=== PATIENT | male | born 1975 | race Caucasian/White ===

== ENCOUNTER 2018-02-23 11:44 | Emergency (ER) | payer MEDICAID, SELFPAY ==
[2018-02-23 11:54] VITALS: BP 128/90; PULSE 75; TEMP 36.4; O2SAT 97
--- NOTE | 2018-02-23 13:00 | W.ED.GENAD ---
Discharge Plan Disposition Patient Disposition: HOME Condition: Stable Discharge Details Chief Complaint: Orthopedic Clinical Impression: Injury of shoulder, left Primary Care Provider: Sharmin Tyler ED Provider: Pearl Rolon Home Meds and New Rx's Prescriptions: New acetaminophen-codeine [Tylenol-Codeine #3] 300-30 mg tablet 1 tab PO Q6H PRN (Reason: pain) Qty: 6 RF: 0 Discontinued arm brace [Wrist Brace Medium] 1 EACH misc 1 ea Miscellaneous HS Qty: 2 RF: 0 hydrocodone-acetaminophen [[place]] 1 EACH tablet 1 - 2 tab PO Q4H PRN PRNRF: 0 hydrocodone-acetaminophen [[place]] 1 EACH tablet 1 - 2 tab PO Q4H PRN PRNRF: 0 Discharge Instructions Instructions: Acetaminophen/Codeine (By mouth), Rotator Cuff Injury (ED), How to Use a Sling (GEN), Shoulder Pain (ED) Additional Instructions: Please return immediately to the emergency department he develop any new or worsening symptoms or if you become otherwise concerned. It is extremely important that you make an appointment to be seen by physical therapy and by your primary care doctor within the next 1-2 weeks. You may need to see orthopedic surgery if you continue to have ongoing issues with her shoulder beyond the next 1-2 weeks. Please do not use the sling for more than 6 hours/day to decrease risk of stiffness in the shoulder. Referrals: Shamrin Tyler MD [Primary Care Provider] - Master Aguilar MD [ [facility] STAFF PHYSICIAN] - Luan Arenas PT [PHYSICAL THERAPIST] - Discharge Data Discharge Date/Time-TO BE ENTERED AT DEPARTURE: 02/23/18 15:40 Medical Decision Making Yvan Maddox is a 43 y/o man without reported h/o major medical problems presenting to the emergency department with chronic intermittent left shoulder pain now constant without trauma over the past few days. On exam Pt with b/l UEs NVI. Left shoulder TTP without overlying skin changes or edema. Concern for rotator cuff injury vs rotator cuff tendinitis, possible associated muscle spasm of trapezius. Exam/hx not c/w septic joint, acute emergent cervical spine pathology/cord compression, meningitis, vascular emergency. Plan for screening xrays, toradol. Xrays non-diagnostic. Pt reports improvement after pain meds. Lengthy discussion with Pt re: RTED precautions, important of outpt f/u with PCP, PT, and ortho as necessary pending further eval by PCP and PT. Sling provided for comfort, lengthy discussion with Pt re: limited use of sling and regular ranging of shoulder joint to prevent stiffness/adhesive capulitis. Imaging Data Radiologic Study: Attestation: I personally reviewed and interpreted this imaging study as follows: Radiologist's impression: LEFT SHOULDER: Multiple views. No priors. No bone or joint abnormality is identified. The soft tissues are unremarkable. IMPRESSION: Negative examination. HPI General Mode of arrival: ambulatory. Date/Time Provider Initiated Documentation: 02/23/18 12:46. Limitations to Documentation: no limitations. Information obtained by: patient, family, RN notes reviewed and old records reviewed. HPI Narrative: Yvan Maddox is a 43 y/o man without reported h/o major medical problems presenting to the emergency department with left shoulder pain. Pt reports that he reached across his body with his left arm 4 days ago, and had sudden pain in his left shoulder during that movement that has persisted. Pt reports that he has had similar pain over the past year, but it has not lasted in the past. He reports that when he moves his left shoulder pain radiates from his anterior and superior shoulder into his left neck and left side of the back of his head. When he does not move his shoulder he has no known. He has had no numbness, tingling, weakness of the arms or legs, rash, SOB, cough, n/v/d, other pain, or any other associated symptoms. Pain is worse with raising his arm. Eating and drinking normally. No recent illness. No trauma other than as above. Related Data Home Medications Medication Instructions Recorded Confirmed acetaminophen-codeine 1 tab PO Q6H PRN #6 tab 02/23/18 [Tylenol-Codeine #3] Previous Rx's Medication Instructions Recorded acetaminophen-codeine 1 tab PO Q6H PRN #6 tab 02/23/18 [Tylenol-Codeine #3] Allergies Allergy/AdvReac Type Severity Reaction Status Date / Time animal dander Allergy Mild head Uncoded 08/19/17 12:01 congestion General Stated Complaint: Orthopedic ISIAH: 4 Review of Systems Review of Systems Constitutional: denies fevers Eyes: denies eye pain ENT: denies facial pain, dental pain, sore throat Cardiovascular: denies chest pain, edema Respiratory: denies SOB, cough GI: denies abdominal pain, vomiting, diarrhea : denies flank pain MSK: denies back pain, neck pain, myalgias; reports shoulder pain Skin: denies rash Neuro: denies headaches, numbness, tingling, weakness PFSH Social History Smoking/Tobacco Use Status: Current every day Surgical History Open Carpal Tunnel release (01/21/17) Exam Narrative Exam Narrative: Constitutional: well and [id number], pleasant, conversing normally HENT: head atraumatic, normocephalic normal inspection, mucous membranes moist Eyes: conjunctiva normal, sclera normal, pupils 3mm b/l Neck: no stridor, normal ROM, trachea midline Chest: normal inspection Resp: normal work of breathing, LCTAB Cardio: normal rate, normal rhythm, no murmur appreciated. Radial pulses intact and symmetric. Back: normal inspection, no rash Skin: warm, dry, normal color, no rash Neuro: alert, not altered, grossly non-focal, normal tone. b/l UEs 5/5 motor, symmetric. Sensation intact/symmetric axillary, radial, ulnar, median nerve dist b/l. Ext: no edema of the UEs or shoulders. Left shoulder TTP over anterior aspect and over scapula, left trap TTP. palpation of these areas reproduces pain. Cannot abduct LUE >90 degrees 2/2 pain. Pain with internal rotation of LUE. Psych: normal mood, normal affect, normal behavior Course Vital Signs Temperature 36.4 C L 02/23/18 11:54 Pulse 75 02/23/18 11:54 Blood Pressure 128/90 02/23/18 11:54 Pulse Oximetry 97 02/23/18 11:54 Temperature 36.4 C L 02/23/18 11:54 Temperature Source Temporal Artery Scan 02/23/18 11:54 Pulse 75 02/23/18 11:54 Blood Pressure 128/90 02/23/18 11:54 Blood Pressure Position Sitting 02/23/18 11:54 Pulse Oximetry 97 02/23/18 11:54 Oxygen Delivery Method Room Air 02/23/18 11:54 Oxygen Flow Rate 0 02/23/18 11:54 Pain Level 6 02/23/18 11:54
[2018-02-23] MEDS: Ketorolac 30 MG/ML VIAL IM (13:18)
--- NOTE | 2018-02-23 14:02 | DI.RAD_ITS ---
SYMPTOMS/DIAGNOSIS: LEFT SHOULDER PAIN, NO TRAUMA LEFT SHOULDER: Multiple views. No priors. No bone or joint abnormality is identified. The soft tissues are unremarkable. IMPRESSION: Negative examination.
--- NOTE | 2018-03-03 10:35 | ED.GENADUL_ITS ---
Discharge Plan Disposition Patient Disposition: HOME Condition: Stable Discharge Details Chief Complaint: Orthopedic Clinical Impression: Injury of shoulder, left Primary Care Provider: Sharmin Tyler ED Provider: Pearl Rolon Home Meds and New Rx's Prescriptions: New acetaminophen-codeine [Tylenol-Codeine #3] 300-30 mg tablet 1 tab PO Q6H PRN (Reason: pain) Qty: 6 RF: 0 Discontinued arm brace [Wrist Brace Medium] 1 EACH misc 1 ea Miscellaneous HS Qty: 2 RF: 0 hydrocodone-acetaminophen [[place]] 1 EACH tablet 1 - 2 tab PO Q4H PRN PRNRF: 0 hydrocodone-acetaminophen [[place]] 1 EACH tablet 1 - 2 tab PO Q4H PRN PRNRF: 0 Discharge Instructions Instructions: Acetaminophen/Codeine (By mouth), Rotator Cuff Injury (ED), How to Use a Sling (GEN), Shoulder Pain (ED) Additional Instructions: Please return immediately to the emergency department he develop any new or worsening symptoms or if you become otherwise concerned. It is extremely important that you make an appointment to be seen by physical therapy and by your primary care doctor within the next 1-2 weeks. You may need to see orthopedic surgery if you continue to have ongoing issues with her shoulder beyond the next 1-2 weeks. Please do not use the sling for more than 6 hours/ day to decrease risk of stiffness in the shoulder. Referrals: Sharmin Tyler MD [Primary Care Provider] - Master Aguilar MD [ [facility] STAFF PHYSICIAN] - Luan Arenas PT [PHYSICAL THERAPIST] - Discharge Data Discharge Date/Time-TO BE ENTERED AT DEPARTURE: 02/23/18 15:40 Medical Decision Making Yvan Maddox is a 43 y/o man without reported h/o major medical problems presenting to the emergency department with chronic intermittent left shoulder pain now constant without trauma over the past few days. On exam Pt with b/l UEs NVI. Left shoulder TTP without overlying skin changes or edema. Concern for rotator cuff injury vs rotator cuff tendinitis, possible associated muscle spasm of trapezius. Exam/hx not c/w septic joint, acute emergent cervical spine pathology/cord compression, meningitis, vascular emergency. Plan for screening xrays, toradol. Xrays non-diagnostic. Pt reports improvement after pain meds. Lengthy discussion with Pt re: RTED precautions, important of outpt f/u with PCP, PT, and ortho as necessary pending further eval by PCP and PT. Sling provided for comfort, lengthy discussion with Pt re: limited use of sling and regular ranging of shoulder joint to prevent stiffness/adhesive capulitis. Imaging Data Radiologic Study: Attestation: I personally reviewed and interpreted this imaging study as follows: Radiologist's impression: LEFT SHOULDER: Multiple views. No priors. No bone or joint abnormality is identified. The soft tissues are unremarkable. IMPRESSION: Negative examination. HPI General Mode of arrival: ambulatory . Date/Time Provider Initiated Documentation: 02/23/18 12:46 . Limitations to Documentation: no limitations . Information obtained by: patient, family, RN notes reviewed and old records reviewed . HPI Narrative: Yvan Maddox is a 43 y/o man without reported h/o major medical problems presenting to the emergency department with left shoulder pain. Pt reports that he reached across his body with his left arm 4 days ago, and had sudden pain in his left shoulder during that movement that has persisted. Pt reports that he has had similar pain over the past year, but it has not lasted in the past. He reports that when he moves his left shoulder pain radiates from his anterior and superior shoulder into his left neck and left side of the back of his head. When he does not move his shoulder he has no known. He has had no numbness, tingling, weakness of the arms or legs, rash, SOB, cough, n/v/d, other pain, or any other associated symptoms. Pain is worse with raising his arm. Eating and drinking normally. No recent illness. No trauma other than as above. Related Data Home Medications Medication Instructions Recorded Confirmed acetaminophen-codeine 1 tab PO Q6H PRN #6 tab 02/23/18 [Tylenol-Codeine #3] Previous Rx's Medication Instructions Recorded acetaminophen-codeine 1 tab PO Q6H PRN #6 tab 02/23/18 [Tylenol-Codeine #3] Allergies Allergy/AdvReac Type Severity Reaction Status Date / Time animal dander Allergy Mild head Uncoded 08/19/17 12:01 congestion General Stated Complaint: Orthopedic ISIAH: 4 Review of Systems Review of Systems Constitutional: denies fevers Eyes: denies eye pain ENT: denies facial pain, dental pain, sore throat Cardiovascular: denies chest pain, edema Respiratory: denies SOB, cough GI: denies abdominal pain, vomiting, diarrhea : denies flank pain MSK: denies back pain, neck pain, myalgias; reports shoulder pain Skin: denies rash Neuro: denies headaches, numbness, tingling, weakness PFSH Social History Smoking/Tobacco Use Status: Current every day Surgical History Open Carpal Tunnel release (01/21/17) Exam Narrative Exam Narrative: Constitutional: well and [id number], pleasant, conversing normally HENT: head atraumatic, normocephalic normal inspection, mucous membranes moist Eyes: conjunctiva normal, sclera normal, pupils 3mm b/l Neck: no stridor, normal ROM, trachea midline Chest: normal inspection Resp: normal work of breathing, LCTAB Cardio: normal rate, normal rhythm, no murmur appreciated. Radial pulses intact and symmetric. Back: normal inspection, no rash Skin: warm, dry, normal color, no rash Neuro: alert, not altered, grossly non-focal, normal tone. b/l UEs 5/5 motor, symmetric. Sensation intact/symmetric axillary, radial, ulnar, median nerve dist b/l. Ext: no edema of the UEs or shoulders. Left shoulder TTP over anterior aspect and over scapula, left trap TTP. palpation of these areas reproduces pain. Cannot abduct LUE >90 degrees 2/2 pain. Pain with internal rotation of LUE. Psych: normal mood, normal affect, normal behavior Course Vital Signs Temperature 36.4 C L 02/23/18 11:54 Pulse 75 02/23/18 11:54 Blood Pressure 128/90 02/23/18 11:54 Pulse Oximetry 97 02/23/18 11:54 Temperature 36.4 C L 02/23/18 11:54 Temperature Source Temporal Artery Scan 02/23/18 11:54 Pulse 75 02/23/18 11:54 Blood Pressure 128/90 02/23/18 11:54 Blood Pressure Position Sitting 02/23/18 11:54 Pulse Oximetry 97 02/23/18 11:54 Oxygen Delivery Method Room Air 02/23/18 11:54 Oxygen Flow Rate 0 02/23/18 11:54 Pain Level 6 02/23/18 11:54
== END 2018-02-23 15:40 | disposition home or self-care (01) ==
PROVIDERS: Emergency Provider Student in an Organized Health Care Education/Training Program; PCP Family Medicine
DX: S49.92XA Unspecified injury of left shoulder and upper arm, initial encounter (principal); X58.XXXA Exposure to other specified factors, initial encounter
CPT/HCPCS: 96372; 99284; 73030; J1885; L3650

== ENCOUNTER 2018-04-20 16:45 | Emergency (ER) | payer MEDICAID, SELFPAY ==
[2018-04-20 16:53] VITALS: BP 132/94; PULSE 81; RESP 16; TEMP 36.5; O2SAT 98
--- NOTE | 2018-04-20 17:05 | ED.GENADUL_ITS ---
Discharge Plan Discharge Details Chief Complaint: Nk/Back Pain Primary Care Provider: Sharmin Tyler ED Provider: Александр Hopper Home Meds and New Rx's Prescriptions: No Action acetaminophen-codeine [Tylenol-Codeine #3] 300-30 mg tablet 1 tab PO Q6H PRN (Reason: pain) Qty: 6 RF: 0 HPI General Mode of arrival: ambulatory . Date/Time Provider Initiated Documentation: 04/20/18 16:57 . Limitations to Documentation: no limitations . Information obtained by: patient . History of Present Illness 43 year old M presents to the emergency department with the chief complaint of low back pain, Related Data Home Medications Medication Instructions Recorded Confirmed acetaminophen-codeine 1 tab PO Q6H PRN #6 tab 02/23/18 03/05/18 [Tylenol-Codeine #3] Previous Rx's Medication Instructions Recorded acetaminophen-codeine 1 tab PO Q6H PRN #6 tab 02/23/18 [Tylenol-Codeine #3] Allergies Allergy/AdvReac Type Severity Reaction Status Date / Time animal dander Allergy Mild head Uncoded 04/20/18 16:57 congestion General Stated Complaint: Nk/Back Pain ISIAH: 3 PFSH Open Carpal Tunnel release (01/21/17) Social History Smoking/Tobacco Use Status: Current every day Surgical History Open Carpal Tunnel release (01/21/17) Social History Smoking/Tobacco Use Status: Current every day Course Vital Signs Temperature 36.5 C 04/20/18 16:53 Pulse 81 04/20/18 16:53 Respiratory Rate 16 04/20/18 16:53 Blood Pressure 132/94 H 04/20/18 16:53 Pulse Oximetry 98 04/20/18 16:53 Temperature 36.6 C 04/20/18 16:54 Temperature Source Skin 04/20/18 16:54 Pulse 59 L 04/20/18 16:54 Respiratory Rate 18 04/20/18 16:54 Respiratory Effort 04/20/18 16:56 Blood Pressure 90/49 L 04/20/18 16:54 Blood Pressure Position Supine 04/20/18 16:54 Pulse Oximetry 95 04/20/18 16:54 Oxygen Delivery Method Room Air 04/20/18 16:54 Oxygen Flow Rate 0 04/20/18 16:54 Pain Level 8 04/20/18 16:53
--- NOTE | 2018-04-20 17:06 | W.ED.GENAD ---
Discharge Plan Disposition Patient Disposition: HOME Condition: Good Discharge Details Chief Complaint: Nk/Back Pain Clinical Impression: Lumbar strain Primary Care Provider: Sharmin Tyler ED Provider: Александр Hopper Home Meds and New Rx's Prescriptions: New cyclobenzaprine 10 mg tablet 10 mg PO TID PRN (Reason: muscle spasm) 10 Days Qty: 30 RF: 0 Continue acetaminophen-codeine [Tylenol-Codeine #3] 300-30 mg tablet 1 tab PO Q6H PRN (Reason: pain) Qty: 6 RF: 0 Discharge Instructions Instructions: Low Back Strain (ED) Additional Instructions: you can take 1000mg tylenol and 600mg ibuprofen every 6 hours for pain as needed follow up with your primary care provider within a week if you have high fevers, weakness or difficulty urinating return to the emergency department Stand Alone Forms: Work Release Medical Decision Making 43 yo male who denies chronic medical problems, no recent trauma or fevers, comes in with cc of low back pain for 2 days. 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 He has lower back pain and feels better with bending forward, has pain throughout the lumbar region. HAs no saddle anesthesia, weakness or numbness on exam and normal sensation. No abdominal tenderness, denies urinary retention. Based on his exam I suspect lumbar strain vs spasm and less likely disc herniation. No trauma so doubt fx/dislocation and do not feel xrays indicated. No systemic symptoms to suggest underying malignancy or osteo. No findings to suggest sea or cauda equina and do not feel emergent MRI inidcated. Will have him f/u with pcp and return precautions given there was a tirage note entered on the wrong patient by nursing stating issues with glucose and being from the [facility] which was on another patient. Differential Diagnosis back strain, spasm, disc herniation HPI General Mode of arrival: ambulatory. Date/Time Provider Initiated Documentation: 04/20/18 16:57. Limitations to Documentation: no limitations. Information obtained by: patient. History of Present Illness 43 year old M presents to the emergency department with the chief complaint of low back pain, described as moderate, with intensity rated at 5. Quality is described as aching, and is localized to the back. Patient reports no radiation. Patient started experiencing this day(s) (2) and it has been constant. No relieving factors improve symptom(s), No exacerbating factors reported and Other factors that worsen symptoms (standing up straight) . Patient notes no other symptoms.. Patient did receive the following treatments prior to arrival, NSAID Related Data Home Medications Medication Instructions Recorded Confirmed acetaminophen-codeine 1 tab PO Q6H PRN #6 tab 02/23/18 03/05/18 [Tylenol-Codeine #3] cyclobenzaprine 10 mg PO TID PRN 10 Days #30 tab 04/20/18 Previous Rx's Medication Instructions Recorded acetaminophen-codeine 1 tab PO Q6H PRN #6 tab 02/23/18 [Tylenol-Codeine #3] cyclobenzaprine 10 mg PO TID PRN 10 Days #30 tab 04/20/18 Allergies Allergy/AdvReac Type Severity Reaction Status Date / Time animal dander Allergy Mild head Uncoded 04/20/18 16:57 congestion General Stated Complaint: Nk/Back Pain ISIAH: 3 Review of Systems Review of Systems All systems reviewed & are unremarkable except as noted in HPI and below Constitutional Denies chills, Denies fever(s) and Denies weakness Eyes Denies loss of vision ENT Denies change in voice Cardiovascular Denies chest pain and Denies dyspnea Respiratory Denies dyspnea Gastrointestinal Denies abdominal pain, Denies nausea and Denies vomiting Genitourinary Denies dysuria Musculoskeletal Denies joint swelling Integumentary/Breasts Denies rash Neurologic Denies loss of vision and Denies weakness Endocrine Denies cold intolerance and Denies heat intolerance [facility] Open Carpal Tunnel release (01/21/17) Social History Smoking/Tobacco Use Status: Current every day Surgical History Open Carpal Tunnel release (01/21/17) Social History Smoking/Tobacco Use Status: Current every day Exam Const General: no acute distress Orientation: alert [place]UT Head: normal to inspection Ears: external ears normal General nose exam: external nose normal Mouth: moist mucous membranes Eyes General: appearance normal, both eyes and all related structures Neck Neck: normal visual inspection Resp Effort & Inspection: normal respiratory effort and able to speak in complete sentences Cardio Rate: regular rate Back/Spine/Pelvis Back: no CVA tenderness Skin General skin exam: no rashes or lesions noted Neuro General: alert and oriented x3 Extrem General: normal to inspection Psych Mental Status: mental status grossly normal Course Vital Signs Temperature 36.5 C 04/20/18 16:53 Pulse 81 04/20/18 16:53 Respiratory Rate 16 04/20/18 16:53 Blood Pressure 132/94 H 04/20/18 16:53 Pulse Oximetry 98 04/20/18 16:53 Temperature 36.6 C 04/20/18 16:54 Temperature Source Skin 04/20/18 16:54 Pulse 59 L 04/20/18 16:54 Respiratory Rate 18 04/20/18 16:54 Respiratory Effort 04/20/18 16:56 Blood Pressure 90/49 L 04/20/18 16:54 Blood Pressure Position Supine 04/20/18 16:54 Pulse Oximetry 95 04/20/18 16:54 Oxygen Delivery Method Room Air 04/20/18 16:54 Oxygen Flow Rate 0 04/20/18 16:54 Pain Level 8 04/20/18 16:53
--- NOTE | 2018-04-20 17:11 | ED.GENADUL_ITS ---
Discharge Plan Disposition Patient Disposition: HOME Condition: Good Discharge Details Chief Complaint: Nk/Back Pain Clinical Impression: Lumbar strain Primary Care Provider: Sharmin Tyler ED Provider: Александр Hopper Home Meds and New Rx's Prescriptions: New cyclobenzaprine 10 mg tablet 10 mg PO TID PRN (Reason: muscle spasm) 10 Days Qty: 30 RF: 0 Continue acetaminophen-codeine [Tylenol-Codeine #3] 300-30 mg tablet 1 tab PO Q6H PRN (Reason: pain) Qty: 6 RF: 0 Discharge Instructions Instructions: Low Back Strain (ED) Additional Instructions: you can take 1000mg tylenol and 600mg ibuprofen every 6 hours for pain as needed follow up with your primary care provider within a week if you have high fevers, weakness or difficulty urinating return to the emergency department Stand Alone Forms: Work Release Medical Decision Making 43 yo male who denies chronic medical problems, no recent trauma or fevers, comes in with cc of low back pain for 2 days. 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 He has lower back pain and feels better with bending forward, has pain throughout the lumbar region. HAs no saddle anesthesia, weakness or numbness on exam and normal sensation. No abdominal tenderness, denies urinary retention. Based on his exam I suspect lumbar strain vs spasm and less likely disc herniation. No trauma so doubt fx/dislocation and do not feel xrays indicated. No systemic symptoms to suggest underying malignancy or osteo. No findings to suggest sea or cauda equina and do not feel emergent MRI inidcated. Will have him f/u with pcp and return precautions given there was a tirage note entered on the wrong patient by nursing stating issues with glucose and being from the [facility] which was on another patient. Differential Diagnosis back strain, spasm, disc herniation HPI General Mode of arrival: ambulatory . Date/Time Provider Initiated Documentation: 04/20/18 16:57 . Limitations to Documentation: no limitations . Information obtained by: patient . History of Present Illness 43 year old M presents to the emergency department with the chief complaint of low back pain, described as moderate, with intensity rated at 5. Quality is described as aching, and is localized to the back. Patient reports no radiation. Patient started experiencing this day(s) (2) and it has been constant. No relieving factors improve symptom(s), No exacerbating factors reported and Other factors that worsen symptoms (standing up straight) . Patient notes no other symptoms.. Patient did receive the following treatments prior to arrival, NSAID Related Data Home Medications Medication Instructions Recorded Confirmed acetaminophen-codeine 1 tab PO Q6H PRN #6 tab 02/23/18 03/05/18 [Tylenol-Codeine #3] cyclobenzaprine 10 mg PO TID PRN 10 Days #30 tab 04/20/18 Previous Rx's Medication Instructions Recorded acetaminophen-codeine 1 tab PO Q6H PRN #6 tab 02/23/18 [Tylenol-Codeine #3] cyclobenzaprine 10 mg PO TID PRN 10 Days #30 tab 04/20/18 Allergies Allergy/AdvReac Type Severity Reaction Status Date / Time animal dander Allergy Mild head Uncoded 04/20/18 16:57 congestion General Stated Complaint: Nk/Back Pain ISIAH: 3 Review of Systems Review of Systems All systems reviewed & are unremarkable except as noted in HPI and below Constitutional Denies chills, Denies fever(s) and Denies weakness Eyes Denies loss of vision ENT Denies change in voice Cardiovascular Denies chest pain and Denies dyspnea Respiratory Denies dyspnea Gastrointestinal Denies abdominal pain, Denies nausea and Denies vomiting Genitourinary Denies dysuria Musculoskeletal Denies joint swelling Integumentary/Breasts Denies rash Neurologic Denies loss of vision and Denies weakness Endocrine Denies cold intolerance and Denies heat intolerance [facility] Open Carpal Tunnel release (01/21/17) Social History Smoking/Tobacco Use Status: Current every day Surgical History Open Carpal Tunnel release (01/21/17) Social History Smoking/Tobacco Use Status: Current every day Exam Const General: no acute distress Orientation: alert HENOH Head: normal to inspection Ears: external ears normal General nose exam: external nose normal Mouth: moist mucous membranes Eyes General: appearance normal, both eyes and all related structures Neck Neck: normal visual inspection Resp Effort & Inspection: normal respiratory effort and able to speak in complete sentences Cardio Rate: regular rate Back/Spine/Pelvis Back: no CVA tenderness Skin General skin exam: no rashes or lesions noted Neuro General: alert and oriented x3 Extrem General: normal to inspection Psych Mental Status: mental status grossly normal Course Vital Signs Temperature 36.5 C 04/20/18 16:53 Pulse 81 04/20/18 16:53 Respiratory Rate 16 04/20/18 16:53 Blood Pressure 132/94 H 04/20/18 16:53 Pulse Oximetry 98 04/20/18 16:53 Temperature 36.6 C 04/20/18 16:54 Temperature Source Skin 04/20/18 16:54 Pulse 59 L 04/20/18 16:54 Respiratory Rate 18 04/20/18 16:54 Respiratory Effort 04/20/18 16:56 Blood Pressure 90/49 L 04/20/18 16:54 Blood Pressure Position Supine 04/20/18 16:54 Pulse Oximetry 95 04/20/18 16:54 Oxygen Delivery Method Room Air 04/20/18 16:54 Oxygen Flow Rate 0 04/20/18 16:54 Pain Level 8 04/20/18 16:53
== END 2018-04-20 17:19 | disposition home or self-care (01) ==
LOC: ER 17:21
PROVIDERS: Emergency Provider Emergency Medicine; PCP Family Medicine
DX: S39.012A Strain of muscle, fascia and tendon of lower back, initial encounter (principal); X50.3XXA Overexertion from repetitive movements, initial encounter
CPT/HCPCS: 99283

== ENCOUNTER 2019-02-06 20:20 | Emergency (ER) | payer MEDICAID, SELFPAY ==
[2019-02-06 20:29] VITALS: BP 144/98; PULSE 74; RESP 18; TEMP 37.2; O2SAT 98
--- NOTE | 2019-02-06 20:32 | ED.GENADUL_ITS ---
Discharge Plan Disposition Patient Disposition: HOME Condition: Improving Discharge Details Chief Complaint: Laceration Clinical Impression: Finger laceration Primary Care Provider: Sharmin Tyler ED Provider: Jayro Villatoro Home Meds and New Rx's Prescriptions: No Action acetaminophen-codeine [Tylenol-Codeine #3] 300-30 mg tablet 1 tab PO Q6H PRN (Reason: pain) Qty: 6 RF: 0 Discharge Instructions Instructions: Finger Laceration (ED) Additional Instructions: Return for suture removal in 7 to 10 days time. Return sooner if you develop a fever, redness, foul-smelling discharge from the wound. May use soap and water once daily, pat dry, replace dressing. Tylenol and/or ibuprofen as needed for pain. Elevate hand tonight to reduce pain swelling. 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 His two-point discrimination is intact at 1 cm. He did not injure himself in any other way. His tetanus was updated in the ER. Wound was anesthetized, irrigated, examined in a bloodless field without evidence of foreign body or deep structure injury. Repaired with 3 interrupted nylon sutures. Wound dressed. Patient stable and appropriate for outpatient management. HPI General Mode of arrival: ambulatory . Date/Time Provider Initiated Documentation: 02/06/19 20:25 . Limitations to Documentation: no limitations . Information obtained by: patient . History of Present Illness 43 year old M p resents to the emergency department with the chief complaint of Left fifth finger laceration palmar surface, described as mild, Quality is described as dull, and is localized to the left and upper extremity. Patient reports no radiation. Patient started experiencing this hour(s) No relieving factors improve symptom(s), No exacerbating factors reported . Patient notes no other symptoms.. Patient did receive the following treatments prior to arrival, none Related Data Home Medications Medication Instructions Recorded Confirmed acetaminophen-codeine 1 tab PO Q6H PRN #6 tab 02/23/18 02/06/19 [Tylenol-Codeine #3] Previous Rx's Medication Instructions Recorded acetaminophen-codeine 1 tab PO Q6H PRN #6 tab 02/23/18 [Tylenol-Codeine #3] Allergies Allergy/AdvReac Type Severity Reaction Status Date / Time skyler monroeder Allergy Mild head Uncoded 04/20/18 16:57 congestion General Stated Complaint: Laceration ISIAH: 4 Review of Systems Review of Systems Narrative: Tetanus out of date [facility] Surgical History Open Carpal Tunnel release (01/21/17) LEFT/ Social History Smoking/Tobacco Use Status: Current every day Tobacco Type: cigarettes Alcohol Intake: never Drug use: Daily Substance use type: marijuana Do you feel safe at home: Yes Do you feel safe in your relationship?: Yes Exam Narrative Exam Narrative: GEN: awake, alert, oriented 3. Pleasant, well groomed, interactive. HEAD: Normocephalic, atraumatic ENT: Mucous membranes moist, oropharynx unremarkable, External ear exam unremarkable EYES: PERRL, EOMI EXT: Full ROM, no edema, no rash, left fifth digit distal phalanx volar surface with a U-shaped curvilinear 1.5 cm laceration. Distal two-point discrimination intact at 1 cm, full range of motion. Neuro: Grossly normal neurologic exam, conversant, interactive. Psych: Speech fluent, thoughts congruent, affect normal Course Vital Signs Vital signs: Vital Signs Temperature 37.2 C 02/06/19 20:29 Pulse 74 02/06/19 20:29 Respiratory Rate 18 02/06/19 20:29 Blood Pressure 144/98 H 02/06/19 20:29 Pulse Oximetry 98 02/06/19 20:29 Temperature 37.2 C 02/06/19 20:29 Temperature Source Skin 02/06/19 20:29 Pulse 74 02/06/19 20:29 Respiratory Rate 18 02/06/19 20:29 Respiratory Effort Non-Labored 02/06/19 20:31 Blood Pressure 144/98 H 02/06/19 20:29 Blood Pressure Position Sitting 02/06/19 20:29 Pulse Oximetry 98 02/06/19 20:29 Oxygen Delivery Method Room Air 02/06/19 20:29 Oxygen Flow Rate 0 02/06/19 20:29 Procedures Laceration Laceration 1: Site: lower extremity Side (If applicable): left Size (cm): 1.5 Description: linear and flap Depth: simple, single layer Local Anesthetic: Lidocaine 1% Pre-repair: wound explored, irrigated extensively and deep structures intact Skin layer closed with: nylon Size (cm): 4-0 Number of sutures: 3 Technique: simple, interrupted
== END 2019-02-06 21:05 | disposition home or self-care (01) ==
PROVIDERS: Emergency Provider Emergency Medicine; PCP Nurse Practitioner Family
DX: S61.217A Laceration without foreign body of left little finger without damage to nail, initial encounter (principal); W45.8XXA Other foreign body or object entering through skin, initial encounter
CPT/HCPCS: 12001; 90471

== ENCOUNTER 2019-05-16 14:54 | Inpatient (IN) | payer MEDICAID, SELFPAY ==
[2019-05-16] VITALS (11 sets, daily range): BP systolic 134–176; BP diastolic 63–101; PULSE 61–71; RESP 16–29; TEMP 36.8–37.4; O2SAT 97–99
--- NOTE | 2019-05-16 15:23 | ED.GENADUL_ITS ---
Discharge Plan Disposition Patient Disposition: [facility] INPATIENT Condition: Stable Discharge Details Chief Complaint: GI Bleed Clinical Impression: Colitis, Bright red rectal bleeding Admit Date/Time: 05/16/19 17:28 Admit Provider: Peggy Brennan Attending Provider: Peggy Brennan Primary Care Provider: Teresa Field ED Provider: Jane Monte Medical Decision Making 1515 -- 44-year-old male with no significant past medical history presents for l ower abdominal pain and bright red rectal bleeding since this morning. Denies fever. Vomiting x1 clear liquid this morning. BP hypertensive. Remainder vitals within normal limits. Afebrile. Tender to palpation across lower abdomen and left lower quadrant. Normal rectal exam. Patient had 2 bowel movements with bright red bleeding with brown formed stool. 1630 -- Labs reviewed and white blood cell count 20. Normal electrolytes. Normal hemoglobin. CT noted bowel wall thickening consistent with colitis. Discussed with virtual radiology also noted possible gastric diverticulum or less likely abscess. Patient has no upper abdominal pain and only vomited once we do not suspect a gastric abscess. 1715 -- Case discussed with Dr. Orr who reviewed CT and agrees with plan for admission. Dose of Rocephin ordered for here. Patient is agreeable with plan. Medical Records Medical records reviewed: Yes I reviewed the patient's medical records. Imaging Data Radiologic Study: Radiologist's impression: CT Abdomen And Pelvis With Contrast Exam date and time: 05/16/2019 4:04 PM Age: 44 years old Clinical indication: Other: Llq pain TECHNIQUE: Imaging protocol: Computed tomography of the abdomen and pelvis with intravenous contrast. Radiation optimization: All CT scans at this facility use at least one of these dose optimization techniques: automated exposure control; mA and/or kV adjustment per patient size (includes targeted exams where dose is matched to clinical indication); or iterative reconstruction. Other contrast: Route: Catheter, Material: omnipaque 350, Volume: 100; COMPARISON: No relevant prior studies available. FINDINGS: Liver: Normal. No mass. Gallbladder and bile ducts: Normal. No calcified stones. No ductal dilation. Pancreas: Normal. No ductal dilation. Spleen: Normal. No splenomegaly. Adrenals: Normal. No mass. Kidneys and ureters: 11 mm nodule left kidney 45 Hounsfield units. Stomach and bowel: Low-attenuation bowel wall thickening is seen throughout the colon consistent with colitis. Differential diagnosis includes infectious and inflammatory etiologies.. A few loops of dilated small bowel intermixed with a few loops of small bowel with bowel wall thickening. May represent enteritis and ileus. 5.5 cm Air-fluid collection posterior to the stomach may represent gastric diverticulum. Series 4, image 12.. Less likely abscess. Appendix: Normal appendix Intraperitoneal space: Unremarkable. No free air. No significant fluid collection. Vasculature: Unremarkable. No abdominal aortic aneurysm. Lymph nodes: Unremarkable. No enlarged lymph nodes. Bladder: Unremarkable as visualized. Reproductive: Unremarkable as visualized. Bones/joints: Unremarkable. No acute fracture. Soft tissues: Unremarkable. IMPRESSION: 1. Low-attenuation bowel wall thickening is seen throughout the colon consistent with colitis. Differential diagnosis includes infectious and inflammatory etiologies.. 2. A few loops of dilated small bowel intermixed with a few loops of small bowel with bowel wall thickening. May represent enteritis and ileus. 3. 5.5 cm Air-fluid collection posterior to the stomach may represent gastric diverticulum. Series 4, image 12.. Less likely abscess. Recommend repeat study with oral contrast if abscess is considered Lab Data Lab results reviewed: Yes I reviewed the patient's lab results. Labs: Laboratory Tests Range/Units 05/16/19 05/16/19 05/16/19 15:15 15:15 15:15 WBC (4.4-10.8) k/cumm 20.78 H RBC (4.50-6.00) m/cumm 5.74 Hgb (13.5-17.5) g/dL 16.9 Hct (40.0-50.0) % 50.0 MCV (80-95) fL 87.1 MCH (27.0-33.0) pg 29.4 MCHC (32.0-36.0) g/dL 33.8 RDW (11.8-14.1) % 13.9 Plt Count (130-400) x1000/uL 334 MPV (8.0-11.0) fL 9.8 PT (9.3-11.0) sec 9.7 INR (0.9-1.1) 1.0 APTT (21.0-31.4) sec Sodium (136-145) mmol/L 143 Potassium (3.5-5.1) mmol/L 4.1 Chloride (98-107) mmol/L 103 Carbon Dioxide (21.0-32.0) mmol/L 26.4 Anion Gap (3-11) mmol/L 13.6 H BUN (7-18) mg/dL 11 Creatinine (0.70-1.30) mg/dL 0.90 Estimated GFR/1.73 m2 (mL/min/1.73m2) >= 60.00 Glucose (74-106) mg/dL 115 H Calcium (8.5-10.1) mg/dL 9.7 Total Bilirubin (0.2-1.0) mg/dL 0.5 AST (15-37) U/L 10 L ALT (16-63) U/L 28 Alkaline Phosphatase (46-116) U/L 89 Total Protein (6.4-8.2) g/dL 8.4 H Albumin (3.4-5.0) g/dL 4.2 Range/Units 05/16/19 15:15 WBC (4.4-10.8) k/cumm RBC (4.50-6.00) m/cumm Hgb (13.5-17.5) g/dL Hct (40.0-50.0) % MCV (80-95) fL MCH (27.0-33.0) pg MCHC (32.0-36.0) g/dL RDW (11.8-14.1) % Plt Count (130-400) x1000/uL MPV (8.0-11.0) fL PT (9.3-11.0) sec INR (0.9-1.1) APTT (21.0-31.4) sec 25.4 Sodium (136-145) mmol/L Potassium (3.5-5.1) mmol/L Chloride (98-107) mmol/L Carbon Dioxide (21.0-32.0) mmol/L Anion Gap (3-11) mmol/L BUN (7-18) mg/dL Creatinine (0.70-1.30) mg/dL Estimated GFR/1.73 m2 (mL/min/1.73m2) Glucose (74-106) mg/dL Calcium (8.5-10.1) mg/dL Total Bilirubin (0.2-1.0) mg/dL AST (15-37) U/L ALT (16-63) U/L Alkaline Phosphatase (46-116) U/L Total Protein (6.4-8.2) g/dL Albumin (3.4-5.0) g/dL HPI General Mode of arrival: ambulatory . Date/Time Provider Initiated Documentation: 05/16/19 15:07 . Limitations to Documentation: no limitations . Information obtained by: patient . History of Present Illness 44 year old M presents to the emergency department with the chief complaint of lower abdominal pain and bright red rectal bleeding, Patient abdomen. Patient started experiencing this hour(s) (Since this morning) and it has been constant. No relieving factors improve symptom(s), No exacerbating factors reported . Patient notes no other symptoms.. Patient did receive the following treatments prior to arrival, none Related Data Home Medications Medication Instructions Recorded Confirmed Unknown [No Known Home Meds] 05/16/19 05/16/19 Allergies Allergy/AdvReac Type Severity Reaction Status Date / Time animal dander Allergy Mild head Uncoded 05/16/19 15:06 congestion hay Allergy Uncoded 05/16/19 15:06 General Stated Complaint: GI Bleed ISIAH: 3 Review of Systems All systems reviewed & are unremarkable except as noted in HPI and below Constitutional Constitutional: Reports as per HPI, Denies chills and Denies fever(s) Eyes Eyes: Denies blurry vision ENT Ears, Nose, Mouth, and Throat: Denies dizziness, Denies sore throat and Denies throat swelling Cardiovascular Cardiovascular: Denies chest pain and Denies dyspnea Respiratory Respiratory: Denies cough and Denies dyspnea Gastrointestinal Gastrointestinal: Reports abdominal pain, Reports hematochezia, Denies diarrhea and Denies vomiting Genitourinary Genitourinary: Denies hematuria and Denies dysuria Musculoskeletal Musculoskeletal: Denies back pain and Denies numbness Integumentary/Breasts Skin/Breast: Denies lesions and Denies rash Neurologic Neurologic: Denies dizziness, Denies focal weakness and Denies numbness Allergic/Immunologic Allergic/Immunologic: Denies throat swelling [facility] Medical History (Updated 05/16/19 @ 18:02 by Peggy Brennan DO) Colitis (Acute) No significant past medical history (Acute) Surgical History History of nasal surgery (Acute) History of total knee replacement (Acute) Open Carpal Tunnel release (01/21/17) LEFT/ Social History Smoking/Tobacco Use Status: Current every day Tobacco Type: cigarettes Alcohol Intake: never Drug use: Daily Substance use type: marijuana Do you feel safe at home: Yes Do you feel safe in your relationship?: Yes Exam Const General: cooperative, healthy appearing and no acute distress HENMT Head: normal to inspection Face and sinus: normal facial exam Eyes General: appearance normal, both eyes and all related structures EOM: EOM intact bilaterally Neck Neck: normal visual inspection and No submandibular swelling Lymphatic: no lymphadenopathy noted Chest Chest: normal inspection of the chest and no tenderness Resp Effort & Inspection: normal respiratory effort and able to speak in complete sentences Auscultation: clear to auscultation bilaterally Cardio Rate: regular rate Rhythm: regular rhythm GI Inspection: normal to inspection Palpation: soft, not firm, not rigid and tender (Across lower abdomen) Auscultation: normal bowel sounds Skin General skin exam: no rashes or lesions noted Neuro General: alert, awake and oriented x3 Cognition: normal cognition Speech: speech normal Motor: muscle tone normal throughout Sensory Exam: no sensory deficits noted Extrem General: normal to inspection, full ROM, normal capillary refill, no calf tenderness bilaterally and no edema Psych Appearance: grossly normal Mental Status: mental status grossly normal Speech and Movement: speech and movement normal Affect: normal affect Course Vital Signs Vital signs: Vital Signs Temperature 98.4 F 05/16/19 15:01 Pulse 71 05/16/19 15:01 Respiratory Rate 16 05/16/19 15:01 Blood Pressure 176/101 H 05/16/19 15:01 Pulse Oximetry 99 05/16/19 15:01 Temperature 98.4 F 05/16/19 15:01 Temperature Source Skin 05/16/19 15:01 Pulse 71 05/16/19 15:01 Respiratory Rate 16 05/16/19 15:01 Respiratory Effort Non-Labored 05/16/19 15:01 Blood Pressure 176/101 H 05/16/19 15:01 Blood Pressure Position Sitting 05/16/19 15:01 Pulse Oximetry 99 05/16/19 15:01 Oxygen Delivery Method Room Air 05/16/19 15:01 Oxygen Flow Rate 0 05/16/19 15:01 Pain Level 7 05/16/19 15:01
[2019-05-16 15:30] LABS: HGB 16.9 g/dL (13.5-17.5); Mean Corp. HGB Concentration 33.8 g/dL (32.0-36.0); Mean Corpuscular Hemoglobin 29.4 pg (27.0-33.0); Mean Corpuscular Volume 87.1 fL (80-95); Mean Platelet Volume 9.8 fL (8.0-11.0); Platelet Count 334 x1000/uL (130-400); RBC 5.74 m/cumm (4.50-6.00); RBC Distribution Width 13.9 % (11.8-14.1); White Blood Cell Count 20.78 k/cumm (4.4-10.8)
[2019-05-16 15:50] LABS: Prothrombin Time 9.7 sec (9.3-11.0)
[2019-05-16 15:54] LABS: ALT 28 U/L (16-63); AST 10 U/L (15-37); Albumin 4.2 g/dL (3.4-5.0); Alkaline Phosphatase 89 U/L (46-116); Anion Gap 13.6 mmol/L (3-11); BUN 11 mg/dL (7-18); Bilirubin, Total 0.5 mg/dL (0.2-1.0); CO2 26.4 mmol/L (21.0-32.0); Calcium 9.7 mg/dL (8.5-10.1); Chloride 103 mmol/L (98-107); Glucose 115 mg/dL (74-106); Potassium 4.1 mmol/L (3.5-5.1); Sodium 143 mmol/L (136-145); Total Protein 8.4 g/dL (6.4-8.2)
[2019-05-16 16:05] LABS: PTT Activated 25.4 sec (21.0-31.4)
--- NOTE | 2019-05-16 16:32 | DI.CT_ITS ---
EXAM: CT ABDOMEN PELVIS W CLINICAL HISTORY: LLQ abd pain, r/o diverticulitis TECHNIQUE: Imaging Protocol: Axial computed tomography images with coronal and sagittal reformatted images were created and reviewed CONTRAST MATERIAL: Intravenous: Omnipaque 350 Contrast volume:100 mL contrast route:IV - Oral: No COMPARISON: No exams were available for comparison FINDINGS: ABDOMEN: Lung Bases: Normal where visualized. Liver: The liver appears to be of decreased attenuation suggesting fatty infiltration. The portal, s uperior mesenteric and splenic veins are patent. No measurable mass. Gallbladder and biliary tract: No radiodense calculus or dilation. Pancreas: Normal density, no abnormal calcifications or inflammatory process. Spleen: Normal. Kidneys: Normal size, contour and axis. No radiodense stones or obstructive uropathy. No masses seen. Adrenal glands: No masses seen. Abdominal Aorta: Mild atherosclerosis. PELVIS: Bladder: Symmetric distention, no gross wall thickening. Bowel: No evidence of bowel obstruction. There is diffuse thickening of the wall of the descending a nd sigmoid colon. Pericolonic inflammatory changes are present. There do appear to be a few scatter ed diverticula. (Series 5, image 675). This may represent acute diverticulitis. Inflammatory or inf ectious colitis should also be considered. Normal appendix. There is a 5.5 centimeter air-fluid col lection posterior to the fundus of the stomach. Peritoneal cavity: No ascites, collection or mesenteric inflammatory response. Bones: Within normal limits. Reproductive organs: Within normal limits. Lymph nodes: Unremarkable. Impression: 1. Findings suspicious for acute diverticulitis. Inflammatory or infectious colitis should also be co nsidered. No abscess or free air. 2. 5.5 centimeter air fluid collection posterior to the fundus of the stomach. This may represent a diverticulum. Abscess is considered less likely. A follow-up examination with oral contrast should be considered. DATA REPOSITORY: All CT scans at this facility are submitted to the National Radiology Data Registry (NRDR) Dose Index Registry (DIR) with the [employer] (A[employer]). RADIATION OPTIMIZATION: All CT scans at this facility use at least one of these dose optimization te chniques: automated exposure control; mA and/or kV adjustment per patient size (includes targeted exa ms where dose is matched to clinical indication); or iterative reconstruction.
[2019-05-16] MEDS: Omnipaque 350 MG/ML 100 ML BTL IJ (16:34)
[2019-05-16] MEDS: Normal Saline 1,000 ML 1000 ML IV (16:54)
--- NOTE | 2019-05-16 16:55 | DI.VRAD_ITS ---
PROCEDURE INFORMATION: Exam: CT Abdomen And Pelvis With Contrast Exam date and time: 05/16/2019 4:04 PM Age: 44 years old Clinical indication: Other: Llq pain TECHNIQUE: Imaging protocol: Computed tomography of the abdomen and pelvis with intravenous contrast. Radiation optimization: All CT scans at this facility use at least one of these dose optimization techniques: automated exposure control; mA and/or kV adjustment per patient size (includes targeted exams where dose is matched to clinical indication); or iterative reconstruction. Other contrast: Route: Catheter, Material: omnipaque 350, Volume: 100; COMPARISON: No relevant prior studies available. FINDINGS: Liver: Normal. No mass. Gallbladder and bile ducts: Normal. No calcified stones. No ductal dilation. Pancreas: Normal. No ductal dilation. Spleen: Normal. No splenomegaly. Adrenals: Normal. No mass. Kidneys and ureters: 11 mm nodule left kidney 45 Hounsfield units. Stomach and bowel: Low-attenuation bowel wall thickening is seen throughout the colon consistent with colitis. Differential diagnosis includes infectious and inflammatory etiologies.. A few loops of dilated small bowel intermixed with a few loops of small bowel with bowel wall thickening. May represent enteritis and ileus. 5.5 cm Air-fluid collection posterior to the stomach may represent gastric diverticulum. Series 4, image 12.. Less likely abscess. Appendix: Normal appendix Intraperitoneal space: Unremarkable. No free air. No significant fluid collection. Vasculature: Unremarkable. No abdominal aortic aneurysm. Lymph nodes: Unremarkable. No enlarged lymph nodes. Bladder: Unremarkable as visualized. Reproductive: Unremarkable as visualized. Bones/joints: Unremarkable. No acute fracture. Soft tissues: Unremarkable. IMPRESSION: 1. Low-attenuation bowel wall thickening is seen throughout the colon consistent with colitis. Differential diagnosis includes infectious and inflammatory etiologies.. 2. A few loops of dilated small bowel intermixed with a few loops of small bowel with bowel wall thickening. May represent enteritis and ileus. 3. 5.5 cm Air-fluid collection posterior to the stomach may represent gastric diverticulum. Series 4, image 12.. Less likely abscess. Recommend repeat study with oral contrast if abscess is considered THIS REPORT CONTAINS FINDINGS THAT MAY BE CRITICAL TO PATIENT CARE. The findings were verbally communicated via telephone conference with olga guerra at 4:55 PM EST on 05/16/2019. The findings were acknowledged and understood. Dictated and Authenticated by: Teresa Hernandez MD. Ordering:DELORES Lara MD
--- NOTE | 2019-05-16 17:27 | W.PM.HP.N ---
Date of service: 05/16/19 Time of Service: 17:27 Assessment and Plan Assessment and plan (1) Colitis: Status: Acute Assessment and plan: does not appear to be ischemic. Pt has no risk factors for infectious- no recent travel/abx use/exposure will start on abx Autoimmune colitis panel ordered Will plan on colon bx in am. don't want to start steroids yet. Unclear if the collection behind the stomach is an abscess- will review CT in am. may require MRI. if it is an abscess- it is 5.5cm and should be drained, however since it is in the lesser sac- unclear if this area can be reached percutaneously. To try to drain this laprascopically would be difficult and a lg surgery. It is in an odd area- pt does not give a HX of ulcer type s/s that could be assoc w/ perforation of an ulcer. will check for infectious agents of the colon as well- I highly doubt this is from C. diff. DVT/GI prophalaxis. hydration pain control flex sig and bx in am Informed consent is obtained for the procedural (explained in simple layman's terms that the pt and/or family could understand) explaining risks vs benefits and alternatives to the procedure and consequences if we do not do the procedure and need/rational for the procedure. Risks include but are not limited to: bleeding, infection, perforation of esophagus, stomach, colon, small intestines, bronchus or trachea, or PTX. This would necessitate emergency surgery to repair the damage w/ possible ostomy; and other associated complications w/ the required surgery. Also complications of anesthesia including aspiration, VT/CVA/. History of Present Illness Consults Consult date: 06/17/19 Narrative: Pt was in his nl state of health until friday. He woke up w/ lower b/l quadrant pain. It b/c worse through out the day. no appetite. x1v. +nausea. bowels- diarrhea/liquid and bloody. No one else at home is ill. no fever/chills. he denies any long standing hx of upper GI s/s. He was having H/I about a month ago- but this has cleared on its own. He did not notice any rectal bleeding well this was going on. He denies any trauma. He denies any unusual foods or travel. He has never had anything like this before. He was no family hx of IBD. he is a smoker. He does not drink ETOH. He drinks lot of coffee and soda daily. He has not had any wt loss. there is no family hx of CRC. he has never had a CE before he does not have peritonits or signif rectal bleeding to the point of requiring transfusion Review of Systems All systems reviewed & are unremarkable except as noted in HPI and below PFSH Medical History Chest pain (Acute) Colitis (Acute) Crohn's colitis (Acute) GERD with esophagitis (Acute) Hiatal hernia with GERD (Acute) Ischemic colitis (Acute) No significant past medical history (Acute) Smoker (Acute) Surgical History History of nasal surgery (Acute) History of total knee replacement (Acute) Open Carpal Tunnel release (01/21/17) LEFT/ Social History Smoking/Tobacco Use Status: Current every day Tobacco Type: cigarettes Alcohol Intake: never Drug use: Daily Substance use type: marijuana Do you feel safe at home: Yes Do you feel safe in your relationship?: Yes Meds Home Medications and Allergies Home Medications Medication Instructions Recorded Confirmed Type acidophilus-pectin, citrus 1 cap PO BID #60 tab 05/18/19 05/21/19 Rx omeprazole magnesium [Acid Regulatory Compliance Engineer 40 mg PO DAILY #60 cap 05/18/19 Rx (omeprazole)] prednisone See Rx Instructions .ROUTE 05/18/19 05/21/19 Rx .COMPLEX #126 tab sulfasalazine [Azulfidine EN-tabs] 500 mg PO BID #60 tab 05/18/19 05/21/19 Rx acetaminophen 500 mg tablet 500 mg PO Q6H PRN 05/21/19 05/21/19 History esomeprazole magnesium 40 mg 40 mg PO DAILY #30 each 05/21/19 05/21/19 Rx granules delayed release for susp Allergies Allergy/AdvReac Type Severity Reaction Status Date / Time animal dander Allergy Mild head Uncoded 05/21/19 13:44 congestion hay Allergy Uncoded 05/21/19 13:44 Exam Const General: cooperative, healthy appearing, comfortable, no acute distress, well developed and well groomed Nutritional Appearance: average body habitus and well nourished Orientation: alert, awake and oriented x3 [facility] Head: normal to inspection, normocephalic and atraumatic Ears: hearing grossly normal bilaterally and external ears normal General nose exam: external nose normal Face and sinus: normal facial exam and sinuses nontender Mouth: oral mucosae normal, lip normal, tongue normal and moist mucous membranes Teeth and gingiva: dentition normal Eyes General: appearance normal, both eyes and all related structures Conjunctivae: conjunctivae normal Sclera: sclerae normal Pupils: PERRL Neck Neck: normal visual inspection and full ROM Chest Chest: normal inspection of the chest Resp Effort & Inspection: normal respiratory effort, able to speak in complete sentences, no cough, no nasal flaring, not tachypneic and no use of accessory muscles Auscultation: clear to auscultation bilaterally, no rales, no rhonchi and no wheezes Cardio Jugular venous pressure: no JVD Rate: regular rate Rhythm: regular rhythm GI Inspection: normal to inspection, no edema and non-distended Palpation: soft, no masses, tender (b/l lower quads L>R. no peritoitis ) in the LLQ and in the RLQ and No ascites Auscultation: normal bowel sounds Skin General skin exam: no rashes or lesions noted Trauma: no lacerations or abrasions Neuro General: alert, oriented x3, oriented, gait normal, moves all extremities, no focal motor deficits and CN's II-XI intact bilaterally Cognition: normal cognition Speech: speech normal Gait: normal gait Motor: muscle tone normal throughout Extrem General: normal to inspection, full ROM and no clubbing, cyanosis or edema Other: pt has had a R TKA already. otherwise does not c/o joint pain or rashes. Psych Appearance: grossly normal and well kempt Mental Status: mental status grossly normal Speech and Movement: speech and movement normal Affect: normal affect Results Labs Result diagrams: 05/18/19 06:33 05/17/19 06:42 Labs: Laboratory Results - last 24 hr 05/16/19 05/16/19 05/16/19 15:15 15:15 15:15 WBC 20.78 H RBC 5.74 Hgb 16.9 Hct 50.0 MCV 87.1 MCH 29.4 MCHC 33.8 RDW 13.9 Plt Count 334 MPV 9.8 PT 9.7 INR 1.0 APTT Sodium 143 Potassium 4.1 Chloride 103 Carbon Dioxide 26.4 Anion Gap 13.6 H BUN 11 Creatinine 0.90 Estimated GFR/1.73 m2 >= 60.00 Glucose 115 H Calcium 9.7 Total Bilirubin 0.5 AST 10 L ALT 28 Alkaline Phosphatase 89 Total Protein 8.4 H Albumin 4.2 05/16/19 15:15 WBC RBC Hgb Hct MCV MCH MCHC RDW Plt Count MPV PT INR APTT 25.4 Sodium Potassium Chloride Carbon Dioxide Anion Gap BUN Creatinine Estimated GFR/1.73 m2 Glucose Calcium Total Bilirubin AST ALT Alkaline Phosphatase Total Protein Albumin Last Vital Signs Temp 36.9 C 05/16/19 15:01 Pulse 63 05/16/19 16:45 Resp 23 05/16/19 16:50 BP 143/82 H 05/16/19 16:45 Pulse Ox 99 05/16/19 15:01
[2019-05-16 17:47] LABS: Lactate 1.1 mmol/L (0.6-1.4)
[2019-05-16 18:07] LABS: Amylase 39 U/L (25-115)
[2019-05-16] MEDS: cefTRIAXone 1 GM/50 ML BAG IVPB (18:10)
[2019-05-16 18:13] LABS: Lipase 105 U/L (73-393)
[2019-05-16 18:14] LABS: C-Reactive Protein < 0.05 mg/dL (0.0-0.3)
[2019-05-16 18:54] LABS: C-Reactive Protein < 0.05 mg/dL (0.0-0.3)
[2019-05-16 19:21] LABS: Magnesium 1.8 mg/dL (1.8-2.4)
[2019-05-16] MEDS: ACETAMINOPHEN 1,000 MG/100 ML BTL 400 MG IVPB (19:38)
[2019-05-16] MEDS: Normal Saline Flush 10 ML SYR IVP (19:39)
[2019-05-16] MEDS: FAMOTIDINE 20 MG/50 ML BAG 200 MG IVPB (20:18)
[2019-05-16 20:28] LABS: Procalcitonin < 0.1 ng/mL
[2019-05-16] MEDS: metroNIDAZOLE 500 MG/100 ML BAG 100 MG IVPB (20:42)
[2019-05-16] MEDS: Enoxaparin 40 MG/0.4 ML SYR SC (22:09)
[2019-05-17] MEDS: Lactated Ringers 1,000 ML 125 ML IV ×2 (01:20→11:21)
[2019-05-17] MEDS: ACETAMINOPHEN 1,000 MG/100 ML BTL 400 MG IVPB ×3 (04:15→19:41)
[2019-05-17] MEDS: metroNIDAZOLE 500 MG/100 ML BAG 100 MG IVPB ×3 (04:49→20:46)
[2019-05-17] MEDS: Normal Saline Flush 10 ML SYR IVP ×3 (04:50→19:42)
[2019-05-17 07:20] VITALS: BP 125/76; PULSE 70; RESP 18; TEMP 36.4; O2SAT 96
[2019-05-17 07:23] LABS: Abs Immature Grans 0.04 k/cumm (0.0-0.09); Absolute Basophil Count 0.01 k/cumm (0.0-0.2); Absolute Eosinophil Count 0.12 k/cumm (0.0-0.7); Absolute Lymphocyte Count 2.44 k/cumm (1.2-3.4); Absolute Monocyte Count 0.86 k/cumm (0.11-0.7); Absolute Neutrophil Count 11.29 k/cumm (1.2-6.7); Basophils % 0.1; Eosinophils % 0.8; HCT 44.2 % (40.0-50.0); HGB 14.8 g/dL (13.5-17.5); Immature Grans % 0.3; Lymphocytes % 16.5; Mean Corp. HGB Concentration 33.5 g/dL (32.0-36.0); Mean Corpuscular Hemoglobin 29.5 pg (27.0-33.0); Mean Corpuscular Volume 88.2 fL (80-95); Monocytes % 5.8; Neutrophils % 76.5; Platelet Count 332 x1000/uL (130-400); RBC 5.01 m/cumm (4.50-6.00); RBC Distribution Width 14.3 % (11.8-14.1); White Blood Cell Count 14.76 k/cumm (4.4-10.8)
--- NOTE | 2019-05-17 07:32 | W.PM.PROGNOT ---
Documented by User: TERESA Juan 05/17/19 07:34 Date of Service Date of service: 05/17/19 Time of Service: 07:32 Assessment and Plan Assessment and plan (1) Colitis: Status: Acute Assessment and plan: LLQ pain well controlled at this time. (+) Flatus. Denies nausea or vomiting Continue NPO status with IV hydration Plan// Flexible Sigmoid with biopsy later today. Subjective Subjective Interval history since last seen: Patient reports his pain has been well controlled over night. He expresses that he is very hungry this morning. (+) flatus. Urinating without difficulty. Exam Const General: cooperative, comfortable and no acute distress Orientation: alert and oriented x3 Resp Effort & Inspection: normal respiratory effort, no audible wheezes and no cough GI Inspection: normal to inspection and non-distended Palpation: soft, no guarding and tender in the LLQ Auscultation: normal bowel sounds Objective Objective Clinical Data: Abnormal lab results 05/16/19 05/16/19 05/17/19 Range/Units 15:15 15:15 06:42 WBC 20.78 H 14.76 H (4.4-10.8) k/cumm RDW 14.3 H (11.8-14.1) % Absolute Neutrophils 11.29 H (1.2-6.7) k/cumm Absolute Monocytes 0.86 H (0.11-0.7) k/cumm Anion Gap 13.6 H (3-11) mmol/L Glucose 115 H (74-106) mg/dL AST 10 L (15-37) U/L Total Protein 8.4 H (6.4-8.2) g/dL Vital Signs Temperature 37.4 C 05/16/19 23:45 Temperature Source Tympanic 05/16/19 23:45 Pulse 68 05/16/19 23:45 Pulse Rhythm Regular 05/17/19 04:30 Pulse 65 05/16/19 16:50 Respiratory Rate 17 05/16/19 23:45 Respiratory Effort Non-Labored 05/17/19 04:30 Respiratory Depth Normal 05/17/19 04:30 Respiratory Pattern Normal 05/17/19 04:30 Blood Pressure 134/63 05/16/19 23:45 Blood Pressure Mean 97 05/16/19 16:45 Blood Pressure Position Sitting 05/16/19 15:01 Pulse Oximetry 97 05/16/19 23:45 Oxygen Delivery Method Room Air 05/16/19 23:45 Oxygen Flow Rate 0 05/16/19 23:45 Pain Level 3 05/17/19 04:15 Intake & Output 05/16/19 05/17/19 05/17/19 18:59 06:59 18:59 Intake Total 270 / 270 Output Total 1800 / 1800 Balance -1530 / -1530 Weight 80.739 kg Intake: IV 270 / 270 Output: Urine 250 / 250 Stool 1550 / 1550 Other: Urine Appearance Clear Clear Comment Mixed with flecks of bloody stool. Stool Occult Blood Positive Stool Size Small Stool Characteristics Liquid Bloody Emesis Description Undigested Food Voiding Methods Bedside Commode Laboratory Results WBC 14.76 k/cumm (4.4-10.8) H 05/17/19 06:42 RBC 5.01 m/cumm (4.50-6.00) 05/17/19 06:42 Hgb 14.8 g/dL (13.5-17.5) D 05/17/19 06:42 Hct 44.2 % (40.0-50.0) 05/17/19 06:42 MCV 88.2 fL (80-95) 05/17/19 06:42 MCH 29.5 pg (27.0-33.0) 05/17/19 06:42 MCHC 33.5 g/dL (32.0-36.0) 05/17/19 06:42 RDW 14.3 % (11.8-14.1) H 05/17/19 06:42 Plt Count 332 x1000/uL (130-400) 05/17/19 06:42 MPV 10.0 fL (8.0-11.0) 05/17/19 06:42 Immature Gran % 0.3 05/17/19 06:42 Neutrophils % 76.5 05/17/19 06:42 Lymphocytes % 16.5 05/17/19 06:42 Monocytes % 5.8 05/17/19 06:42 Eosinophils % 0.8 05/17/19 06:42 Basophils % 0.1 05/17/19 06:42 Absolute Neutrophils 11.29 k/cumm (1.2-6.7) H 05/17/19 06:42 Absolute Lymphocytes 2.44 k/cumm (1.2-3.4) 05/17/19 06:42 Absolute Monocytes 0.86 k/cumm (0.11-0.7) H 05/17/19 06:42 Absolute Eosinophils 0.12 k/cumm (0.0-0.7) 05/17/19 06:42 Absolute Basophils 0.01 k/cumm (0.0-0.2) 05/17/19 06:42 PT 9.7 sec (9.3-11.0) 05/16/19 15:15 INR 1.0 (0.9-1.1) 05/16/19 15:15 APTT 25.4 sec (21.0-31.4) 05/16/19 15:15 Sodium 143 mmol/L (136-145) 05/16/19 15:15 Potassium 4.1 mmol/L (3.5-5.1) 05/16/19 15:15 Chloride 103 mmol/L (98-107) 05/16/19 15:15 Carbon Dioxide 26.4 mmol/L (21.0-32.0) 05/16/19 15:15 Anion Gap 13.6 mmol/L (3-11) H 05/16/19 15:15 BUN 11 mg/dL (7-18) 05/16/19 15:15 Creatinine 0.90 mg/dL (0.70-1.30) 05/16/19 15:15 Estimated GFR/1.73 m2 >= 60.00 (mL/min/1.73m2) 05/16/19 15:15 Glucose 115 mg/dL (74-106) H 05/16/19 15:15 Lactate 1.1 mmol/L (0.6-1.4) 05/16/19 17:36 Calcium 9.7 mg/dL (8.5-10.1) 05/16/19 15:15 Magnesium 1.8 mg/dL (1.8-2.4) 05/16/19 17:36 Total Bilirubin 0.5 mg/dL (0.2-1.0) 05/16/19 15:15 AST 10 U/L (15-37) L 05/16/19 15:15 ALT 28 U/L (16-63) 05/16/19 15:15 Alkaline Phosphatase 89 U/L (46-116) 05/16/19 15:15 C-Reactive Protein < 0.05 mg/dL (0.0-0.3) 05/16/19 17:36 Total Protein 8.4 g/dL (6.4-8.2) H 05/16/19 15:15 Albumin 4.2 g/dL (3.4-5.0) 05/16/19 15:15 Amylase 39 U/L (25-115) 05/16/19 17:36 Lipase 105 U/L (73-393) 05/16/19 17:36 Procalcitonin < 0.1 ng/mL 05/16/19 17:36 Patient ABO/Rh O Positive 05/16/19 15:15 Antibody Screen Negative 05/16/19 15:15 Documented by User: Peggy Brennan DO 05/21/19 16:37 Assessment and Plan Assessment and plan (1) Rectal bleeding: Status: Acute Assessment and plan: pt seen adn examined hgb stable plan on doing flex sig and bx today as well as EGD Informed consent is obtained for the procedural (explained in simple layman's terms that the pt and/or family could understand) explaining risks vs benefits and alternatives to the procedure and consequences if we do not do the procedure and need/rational for the procedure. Risks include but are not limited to: bleeding, infection, perforation of esophagus, stomach, colon, small intestines, bronchus or trachea, or PTX. This would necessitate emergency surgery to repair the damage w/ possible ostomy; and other associated complications w/ the required surgery. Also complications of anesthesia including aspiration, DE/CVA/.
[2019-05-17 07:57] LABS: ALT 20 U/L (16-63); AST 9 U/L (15-37); Albumin 3.5 g/dL (3.4-5.0); Alkaline Phosphatase 67 U/L (46-116); Anion Gap 11.3 mmol/L (3-11); BUN 8 mg/dL (7-18); Bilirubin, Total 0.8 mg/dL (0.2-1.0); C-Reactive Protein 0.08 mg/dL (0.0-0.3); CO2 26.7 mmol/L (21.0-32.0); CREATININE 0.94 mg/dL (0.70-1.30); Calcium 8.9 mg/dL (8.5-10.1); Chloride 106 mmol/L (98-107); Glucose 103 mg/dL (74-106); Potassium 3.5 mmol/L (3.5-5.1); Sodium 144 mmol/L (136-145); Total Protein 7.2 g/dL (6.4-8.2)
[2019-05-17] MEDS: FAMOTIDINE 20 MG/50 ML BAG 200 MG IVPB (08:52)
--- NOTE | 2019-05-17 10:53 | INITIAL_ITS ---
- If Service Date Differs Date of service: 05/17/19 Time of Service: 10:53 Care Management Initial Assess REASON FOR HOSPITALIZATION:: Acute colitis. PAST MEDICAL HISTORY/PAST SURGICAL HISTORY:: Medical History: Colitis (Acute), No significant past medical history. Surgical History: History of nasal surgery, History of total knee replacement, and Open Carpal Tunnel release - LEFT/. PREVIOUS FUNCTIONAL STATUS/SOCIAL/FAMILY SUPPORTS:: Yvan lives in [facility] with his and his 8 year old son. He also has a 13 year old daughter who spends time with them on weekends. 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 Yvan drives and is independent with his ADLs at baseline. During his down time, he enjoys watching television and spending time with his family. CURRENT FUNCTIONAL STATUS:: Yvan is lying in bed when CM comes to meet with him. His , Christina, and his son, Isael, are present in the room. Yvan is pleasant and easily engages in conversation. He talks about his work and how he has traveled as far south as [place] for painting jobs. He reports he is feeling better and is looking forward to returning home with his family. ADVANCE DIRECTIVES:: None on file. Has patient been provided with information about the portal?: Yes Did the patient sign up for the portal?: No CODE STATUS:: Full Code INSURANCE COVERAGE / FINANCIAL ISSUES:: Medicaid. CURRENT HOME/COMMUNITY SERVICES/EQUIPMENT:: None. PRIMARY CARE PHYSICIAN:: CHRISTOPHER Enamorado ([facility]) POTENTIAL DISCHARGE NEEDS:: Follow-up appointment with primary care physician. PATIENT/FAMILY EDUCATION NEEDS:: Discharge plan, limitations, follow-up plan, including Ask Me Three and self-management. ANTICIPATED BARRIERS TO DISCHARGE:: None. TRANSPORTATION:: Yvan's will drive him home via private vehicle when ready. PLAN:: Yvan will be discharged home when medically cleared by provider. Anticipate no new services upon discharge. His will drive him home via private vehicle when ready.
--- NOTE | 2019-05-17 11:35 | ESO_PTH ---
PATIENT: Yvan Maddox LOC: U#:[id number] AGE/SX: 44/M ROOM: 225 RE05/16/[address]: Alysa Davenport MD : 1975 BED: A DIS: 05/18/2019 SPEC #: [id number] RECD: 05/17/19 12:49 STATUS: XOCHITL REQ #: [id number] STAR: 05/17/19 11:[address]: Peggy Brennan DEPT: Surgical Specimen RECD BY: Gale Ro ENTERED: 05/17/19 12:54 SP TYPE: Ronny CESAR DR: Teresa Field Tissues: 1 - BIOPSY BOWEL 2 - STOMACH BIOPSY 3 - STOMACH BIOPSY 4 - ESOPHAGUS BIOPSY 5 - ESOPHAGUS BIOPSY 6 - BIOPSY BOWEL 7 - BIOPSY BOWEL 8 - BIOPSY BOWEL 9 - BIOPSY BOWEL 10 - BIOPSY BOWEL Procedures: GROSS AND MICRO LEVEL 4 Comments: [id number]
[2019-05-17 12:17] VITALS: BP 130/83; PULSE 63; RESP 16; TEMP 36.3; O2SAT 98
--- NOTE | 2019-05-17 12:20 | PHARADMIT ---
Admission Pharmacy Clinical Review acute colitis Code Status Full Code Current Weight 80.739 kg Renally Cleared and Narrow Therapeutic Index Meds Crcl ~103 mL/min current meds okay QTc Value / Action Taken QTc 420 BP Control, Fever BP 130/83 afebrile Electrolytes reviewed within normal limits DVT Prophylaxis enoxaparin Opiate Usage / Scheduled Bowel Regimen Ordered prn/no Plt/SCr for Heparin / Enoxaparin plt 332 SCr 0.94 INR for Warfarin n/a H/H stable, WBC/Bands h/h 14.8/44.2 WBC 14.76 Antibiotic appropriateness ceftriaxone and metronidazole Cultures and Sensitivities C.diff negative Lactoferrin positive Surgical ABX d/c within 24 hr n/a DM control / Insulin Dosing Bg 103 none Heart Failure (Check EF%) (SHIRA's, B-Block, Diuretics) none IV to PO Switch n/a Home Meds Reviewed no known home meds Home Meds Not Ordered no known home meds Comments
--- NOTE | 2019-05-17 12:22 | W.PM.OP ---
Date of service: 05/17/19 Time of Service: 12:22 Operative Note Operative Note PRE-OP DIAGNOSIS: IBD lesser sac/post duodenal abscess vs tic POST-OP DIAGNOSIS: other (hiatal hernia/mod-severe esophagitis. crohns colitis. no anal lesions. bx sent ) PROCEDURE: egd & bx flex sig and bx SURGEON: Peggy Brennan ANESTHESIA: GETA ESTIMATED BLOOD LOSS: 1 PATHOLOGY: other COMPLICATIONS: None Patient was transported to: floor Patient's condition: stable Procedure Description: After informed consent was obtained the patient was take to the procedure room and placed in a supine position. Monitors were applied and a time out was done. The patients name, date of , procedure type, allergies to medications and metal in their body was reviewed. A bite block was placed and the patient was sedated. Once sedated and comfortable the gastroscope was advanced through the oropharynx which was grossly normal into the esophagus. The proximal and mid-esophagus were nl. There is no esophageal divertcula/varices apparent. In the distal esophagus there was severe esophagitis. there were two tongues of barett's extending up for 1cm each. there was also an island of nl squamous cell tissue. The scope was advanced into the stomach and through the pylorus into the 3rd portion of the duodenum. The duodenum was noted to be nl. The mucosa was pink and healthy. There was no edema or thickening of the tissue. No signs of duodenitis, ulcer dx, tumor , etc. I think I did visualize a diverticulum- but it was behind a fold/turn. However, there were no signs of ulcer Dx or Biopsies were done. The scope was retracted back into the stomach and biopsies were done to rule out H. pylori. There were no ulcers. The scope was retroflexed. The cardia and fundus were noted to be normal. There small hiatal hernia noted. The scope was retracted back into the esophagus and biopsies were done of the GE junction to rule out Carter's. After informed consent was obtained the patient was taken to the procedure room and placed in a left decubitous position. Monitors were applied and a time out was done. The patients name, date of , procedure, allergies to medications and metal in their body was reviewed. The patient was then sedated. Once sedated and comfortable a rectal exam was done. External exam was normal. Internal exam revealed a normal sphincter tone and no palpable masses. There are no fistulas/fissures,etc. The prostate nl. The scope was then introduced and retrofelexed. No internal hemorrhoids were identified. The scope was then advanced to 50cm. This was an unprepped CE. there was pathcy areas of redness/edema/inflammation. The tissue is very friable. white normal tissue interspersed. skip lesions. Bx were taken starting at 50cm every 10cm and x2 bites from each site. All specimens are retrieved and there is no significant bleeding noted. There are few small scattered diverticula The scope was removed and the patient was woken up and taken back to Same day surgery in stable condition. The patient tolerated the procedure well and there were no immediate complications.
[2019-05-17] MEDS: Pantoprazole 40 MG VIAL IVP (12:52)
[2019-05-17] MEDS: Hydrocortisone SOD SUC. 100 MG VIAL IVP ×2 (13:31→19:42)
[2019-05-17 14:56] VITALS: BP 123/74; PULSE 63; RESP 18; TEMP 36.6; O2SAT 96
[2019-05-17] MEDS: Lactated Ringers 1,000 ML 80 ML IV (18:04)
[2019-05-17] MEDS: cefTRIAXone 2 GM/50 ML BAG IVPB (18:05)
[2019-05-17] MEDS: Normal Saline 1,000 ML 80 ML IV (18:55)
--- NOTE | 2019-05-17 21:30 | W.PM.PROGNOT ---
Date of Service Date of service: 05/17/19 Time of Service: 16:00 Assessment and Plan Assessment and plan (1) Crohn's colitis: Status: Acute Assessment and plan: -path pd adn confirmatory labs -for know will treat like as if crohns w/ steroids and sulfazalasine. -will need CE's every two yrs adn close F/u for PSC and other complications. clinically much improved I (2) GERD with esophagitis: Status: Acute Assessment and plan: PPI and lifestyle modification Continue with lifestyle modifications: no alcohol, tobacco products, Aspirin or NSAID's (ibuprofen, Motrin, Naprosyn, aleve, etc). Try to minimize soda pop/any carbonated beverages, caffeine (including tea & chocolate), and acidic foods, (tomatoes, citrus, onions, peppermints) spicy or fried/fatty foods. Do not lie down for 30 minutes after eating, and do not eat 2 hours prior to bedtime. Avoid wearing tight fitting clothing/ belts. steroids may make this worse- will monitor (3) Hiatal hernia with GERD: Status: Acute Subjective Subjective Interval history since last seen: in to see pt post scope. He is feeling better. Less abdominal pain. He is hungry. no temp no headaches. No CP or SOB. no productive cough. no dysuria. no leg pain or swelling. pt is not had any more bloody stools. d/w pt findings on scope- there was no rectal involvement and moderate dx, w/ patchy appearance/skip lesions. Scope ws only do to 50cm and will need to repeated in 6wks time. He is a smoker. He does drink a lg amount of soda. no asa/nsaid's use. also heavy coffee drinker. no ETOH. he does have pretty severe reflux/GERD/ esophagitis. we will start a PPI. the steroids may exacerbate the reflux. d/w pt dietary modifications. He was not had problems w/ rashes. He has had x2 knee replacemtns on the right. He has never been worked up for arthritis d/o. Liver appears nl on CT. Exam Const General: cooperative, healthy appearing, comfortable, no acute distress, well developed and well groomed Nutritional Appearance: average body habitus and well nourished Orientation: alert, awake and oriented x3 HENMT Head: normal to inspection, normocephalic and atraumatic Ears: hearing grossly normal bilaterally and external ears normal General nose exam: external nose normal Face and sinus: normal facial exam and sinuses nontender Mouth: oral mucosae normal, lip normal, tongue normal and moist mucous membranes Teeth and gingiva: dentition normal Eyes General: appearance normal, both eyes and all related structures Conjunctivae: conjunctivae normal Sclera: sclerae normal Pupils: PERRL Neck Neck: normal visual inspection and full ROM Chest Chest: normal inspection of the chest Resp Effort & Inspection: normal respiratory effort, able to speak in complete sentences, no cough, no nasal flaring, not tachypneic and no use of accessory muscles Auscultation: clear to auscultation bilaterally, no rales, no rhonchi and no wheezes Cardio Jugular venous pressure: no JVD Rate: regular rate Rhythm: regular rhythm GI Inspection: normal to inspection, no edema and non-distended Palpation: soft, no masses, nontender and No ascites Auscultation: normal bowel sounds Other: minimal tenderness over the colon. no distention. no n/v. Skin General skin exam: no rashes or lesions noted Trauma: no lacerations or abrasions Neuro General: alert, oriented x3, oriented, gait normal, moves all extremities, no focal motor deficits and CN's II-XI intact bilaterally Cognition: normal cognition Speech: speech normal Gait: normal gait Motor: muscle tone normal throughout Extrem General: normal to inspection, full ROM and no clubbing, cyanosis or edema Psych Appearance: grossly normal and well kempt Mental Status: mental status grossly normal Speech and Movement: speech and movement normal Affect: normal affect Objective Objective Clinical Data: Abnormal lab results 05/17/19 05/17/19 Range/Units 06:42 06:42 WBC 14.76 H (4.4-10.8) k/cumm RDW 14.3 H (11.8-14.1) % Absolute Neutrophils 11.29 H (1.2-6.7) k/cumm Absolute Monocytes 0.86 H (0.11-0.7) k/cumm Anion Gap 11.3 H (3-11) mmol/L AST 9 L (15-37) U/L Vital Signs Temperature 36.6 C 05/17/19 14:56 Temperature Source Tympanic 05/17/19 14:56 Pulse 63 05/17/19 14:56 Pulse Rhythm Regular 05/17/19 09:54 Pulse 65 05/16/19 16:50 Respiratory Rate 18 05/17/19 14:56 Respiratory Effort Non-Labored 05/17/19 09:54 Respiratory Depth Normal 05/17/19 09:54 Respiratory Pattern Normal 05/17/19 09:54 Blood Pressure 123/74 05/17/19 14:56 Blood Pressure Mean 97 05/16/19 16:45 Blood Pressure Position Sitting 05/16/19 15:01 Pulse Oximetry 96 05/17/19 14:56 Oxygen Delivery Method Room Air 05/17/19 14:56 Oxygen Flow Rate 0 05/17/19 14:56 Pain Level 4 05/17/19 16:23 Intake & Output 05/16/19 05/17/19 05/17/19 23:59 11:59 23:59 Intake Total 270 / 270 1200 / 2926.834 1726.834 / 2926.834 Output Total 1500 / 1500 300 / 300 Balance -1230 / -1230 900 / 2626.834 1726.834 / 2626.834 Weight 80.739 kg Intake: IV 270 / 270 1200 / 2436.834 1236.834 / 2436.834 Oral 490 / 490 Output: Urine 250 / 250 Stool 1250 / 1250 300 / 300 Other: Urine Appearance Clear Clear Comment Mixed with flecks of bloody stool. Stool Occult Blood Positive Stool Size Small Stool Characteristics Liquid Liquid Bloody Bloody Emesis Description Undigested Food Voiding Methods Bedside Commode Toilet Laboratory Results WBC 14.76 k/cumm (4.4-10.8) H 05/17/19 06:42 RBC 5.01 m/cumm (4.50-6.00) 05/17/19 06:42 Hgb 14.8 g/dL (13.5-17.5) D 05/17/19 06:42 Hct 44.2 % (40.0-50.0) 05/17/19 06:42 MCV 88.2 fL (80-95) 05/17/19 06:42 MCH 29.5 pg (27.0-33.0) 05/17/19 06:42 MCHC 33.5 g/dL (32.0-36.0) 05/17/19 06:42 RDW 14.3 % (11.8-14.1) H 05/17/19 06:42 Plt Count 332 x1000/uL (130-400) 05/17/19 06:42 MPV 10.0 fL (8.0-11.0) 05/17/19 06:42 Immature Gran % 0.3 05/17/19 06:42 Neutrophils % 76.5 05/17/19 06:42 Lymphocytes % 16.5 05/17/19 06:42 Monocytes % 5.8 05/17/19 06:42 Eosinophils % 0.8 05/17/19 06:42 Basophils % 0.1 05/17/19 06:42 Absolute Neutrophils 11.29 k/cumm (1.2-6.7) H 05/17/19 06:42 Absolute Lymphocytes 2.44 k/cumm (1.2-3.4) 05/17/19 06:42 Absolute Monocytes 0.86 k/cumm (0.11-0.7) H 05/17/19 06:42 Absolute Eosinophils 0.12 k/cumm (0.0-0.7) 05/17/19 06:42 Absolute Basophils 0.01 k/cumm (0.0-0.2) 05/17/19 06:42 PT 9.7 sec (9.3-11.0) 05/16/19 15:15 INR 1.0 (0.9-1.1) 05/16/19 15:15 APTT 25.4 sec (21.0-31.4) 05/16/19 15:15 Sodium 144 mmol/L (136-145) 05/17/19 06:42 Potassium 3.5 mmol/L (3.5-5.1) 05/17/19 06:42 Chloride 106 mmol/L (98-107) 05/17/19 06:42 Carbon Dioxide 26.7 mmol/L (21.0-32.0) 05/17/19 06:42 Anion Gap 11.3 mmol/L (3-11) H 05/17/19 06:42 BUN 8 mg/dL (7-18) 05/17/19 06:42 Creatinine 0.94 mg/dL (0.70-1.30) 05/17/19 06:42 Estimated GFR/1.73 m2 >= 60.00 (mL/min/1.73m2) 05/17/19 06:42 Glucose 103 mg/dL (74-106) 05/17/19 06:42 Lactate 1.1 mmol/L (0.6-1.4) 05/16/19 17:36 Calcium 8.9 mg/dL (8.5-10.1) 05/17/19 06:42 Magnesium 1.8 mg/dL (1.8-2.4) 05/16/19 17:36 Total Bilirubin 0.8 mg/dL (0.2-1.0) 05/17/19 06:42 AST 9 U/L (15-37) L 05/17/19 06:42 ALT 20 U/L (16-63) 05/17/19 06:42 Alkaline Phosphatase 67 U/L (46-116) 05/17/19 06:42 C-Reactive Protein 0.08 mg/dL (0.0-0.3) 05/17/19 06:42 Total Protein 7.2 g/dL (6.4-8.2) 05/17/19 06:42 Albumin 3.5 g/dL (3.4-5.0) 05/17/19 06:42 Amylase 39 U/L (25-115) 05/16/19 17:36 Lipase 105 U/L (73-393) 05/16/19 17:36 Procalcitonin < 0.1 ng/mL 05/16/19 17:36 TSH 2.60 uIU/mL (0.36-3.74) 05/17/19 06:42 Patient ABO/Rh O Positive 05/16/19 15:15 Antibody Screen Negative 05/16/19 15:15
[2019-05-17] MEDS: Enoxaparin 40 MG/0.4 ML SYR SC (21:46)
[2019-05-17 23:51] VITALS: BP 111/63; PULSE 65; RESP 17; TEMP 36.5; O2SAT 96
[2019-05-18] MEDS: ACETAMINOPHEN 1,000 MG/100 ML BTL 400 MG IVPB ×2 (04:03→12:25)
[2019-05-18] MEDS: Hydrocortisone SOD SUC. 100 MG VIAL IVP ×2 (04:03→12:25)
[2019-05-18] MEDS: metroNIDAZOLE 500 MG/100 ML BAG 100 MG IVPB ×2 (04:04→13:14)
[2019-05-18] MEDS: Normal Saline 1,000 ML 80 ML IV (06:53)
--- NOTE | 2019-05-18 07:12 | W.PM.PROGNOT ---
Date of Service Date of service: 05/18/19 Time of Service: 07:12 Assessment and Plan Assessment and plan (1) Crohn's colitis: Status: Acute Assessment and plan: Rectal bleeding has subsided. Patient denies any discomfort or complaints at this time. Tolerating full liquid diet, will progress to soft low fiber diet for breakfast. Continue treatment with steroids and sulfazalasine. Subjective Subjective Interval history since last seen: Feeling even better today. Tolerated full liquid diet last night. Denies any nausea, vomiting, diarrhea or blood per rectum. He expresses that he is eager to return home. Exam Const General: cooperative and healthy appearing Orientation: alert and oriented x3 Resp Effort & Inspection: normal respiratory effort, no audible wheezes and no cough GI Inspection: normal to inspection and non-distended Objective Objective Clinical Data: Abnormal lab results 05/17/19 05/17/19 Range/Units 06:42 06:42 WBC 14.76 H (4.4-10.8) k/cumm RDW 14.3 H (11.8-14.1) % Absolute Neutrophils 11.29 H (1.2-6.7) k/cumm Absolute Monocytes 0.86 H (0.11-0.7) k/cumm Anion Gap 11.3 H (3-11) mmol/L AST 9 L (15-37) U/L Vital Signs Temperature 36.5 C 05/17/19 23:51 Temperature Source Tympanic 05/17/19 23:51 Pulse 65 05/17/19 23:51 Pulse Rhythm Regular 05/17/19 23:55 Pulse 65 05/16/19 16:50 Respiratory Rate 17 05/17/19 23:51 Respiratory Effort Non-Labored 05/17/19 23:55 Respiratory Depth Normal 05/17/19 23:55 Respiratory Pattern Normal 05/17/19 23:55 Blood Pressure 111/63 05/17/19 23:51 Blood Pressure Mean 97 05/16/19 16:45 Blood Pressure Position Sitting 05/16/19 15:01 Pulse Oximetry 96 05/17/19 23:51 Oxygen Delivery Method Room Air 05/17/19 23:51 Oxygen Flow Rate 0 05/17/19 23:51 Pain Level 0 05/17/19 23:51 Intake & Output 05/17/19 05/18/19 05/18/19 18:59 06:59 18:59 Intake Total 2726.834 / 3884.167 1157.333 / 3884.167 Balance 2726.834 / 3884.167 1157.333 / 3884.167 Intake: IV 2236.834 / 3394.167 1157.333 / 3394.167 Oral 490 / 490 Other: Urine Color Pale Yellow Urine Appearance Clear Clear Urine Odor None Stool Characteristics Liquid Voiding Methods Toilet Toilet Laboratory Results WBC 14.76 k/cumm (4.4-10.8) H 05/17/19 06:42 RBC 5.01 m/cumm (4.50-6.00) 05/17/19 06:42 Hgb 14.8 g/dL (13.5-17.5) D 05/17/19 06:42 Hct 44.2 % (40.0-50.0) 05/17/19 06:42 MCV 88.2 fL (80-95) 05/17/19 06:42 MCH 29.5 pg (27.0-33.0) 05/17/19 06:42 MCHC 33.5 g/dL (32.0-36.0) 05/17/19 06:42 RDW 14.3 % (11.8-14.1) H 05/17/19 06:42 Plt Count 332 x1000/uL (130-400) 05/17/19 06:42 MPV 10.0 fL (8.0-11.0) 05/17/19 06:42 Immature Gran % 0.3 05/17/19 06:42 Neutrophils % 76.5 05/17/19 06:42 Lymphocytes % 16.5 05/17/19 06:42 Monocytes % 5.8 05/17/19 06:42 Eosinophils % 0.8 05/17/19 06:42 Basophils % 0.1 05/17/19 06:42 Absolute Neutrophils 11.29 k/cumm (1.2-6.7) H 05/17/19 06:42 Absolute Lymphocytes 2.44 k/cumm (1.2-3.4) 05/17/19 06:42 Absolute Monocytes 0.86 k/cumm (0.11-0.7) H 05/17/19 06:42 Absolute Eosinophils 0.12 k/cumm (0.0-0.7) 05/17/19 06:42 Absolute Basophils 0.01 k/cumm (0.0-0.2) 05/17/19 06:42 PT 9.7 sec (9.3-11.0) 05/16/19 15:15 INR 1.0 (0.9-1.1) 05/16/19 15:15 APTT 25.4 sec (21.0-31.4) 05/16/19 15:15 Sodium 144 mmol/L (136-145) 05/17/19 06:42 Potassium 3.5 mmol/L (3.5-5.1) 05/17/19 06:42 Chloride 106 mmol/L (98-107) 05/17/19 06:42 Carbon Dioxide 26.7 mmol/L (21.0-32.0) 05/17/19 06:42 Anion Gap 11.3 mmol/L (3-11) H 05/17/19 06:42 BUN 8 mg/dL (7-18) 05/17/19 06:42 Creatinine 0.94 mg/dL (0.70-1.30) 05/17/19 06:42 Estimated GFR/1.73 m2 >= 60.00 (mL/min/1.73m2) 05/17/19 06:42 Glucose 103 mg/dL (74-106) 05/17/19 06:42 Lactate 1.1 mmol/L (0.6-1.4) 05/16/19 17:36 Calcium 8.9 mg/dL (8.5-10.1) 05/17/19 06:42 Magnesium 1.8 mg/dL (1.8-2.4) 05/16/19 17:36 Total Bilirubin 0.8 mg/dL (0.2-1.0) 05/17/19 06:42 AST 9 U/L (15-37) L 05/17/19 06:42 ALT 20 U/L (16-63) 05/17/19 06:42 Alkaline Phosphatase 67 U/L (46-116) 05/17/19 06:42 C-Reactive Protein 0.08 mg/dL (0.0-0.3) 05/17/19 06:42 Total Protein 7.2 g/dL (6.4-8.2) 05/17/19 06:42 Albumin 3.5 g/dL (3.4-5.0) 05/17/19 06:42 Amylase 39 U/L (25-115) 05/16/19 17:36 Lipase 105 U/L (73-393) 05/16/19 17:36 Procalcitonin < 0.1 ng/mL 05/16/19 17:36 TSH 2.60 uIU/mL (0.36-3.74) 05/17/19 06:42 Patient ABO/Rh O Positive 05/16/19 15:15 Antibody Screen Negative 05/16/19 15:15
[2019-05-18 07:23] LABS: Abs Immature Grans 0.03 k/cumm (0.0-0.09); Absolute Basophil Count 0.03 k/cumm (0.0-0.2); Absolute Eosinophil Count 0.04 k/cumm (0.0-0.7); Absolute Lymphocyte Count 1.83 k/cumm (1.2-3.4); Absolute Monocyte Count 0.48 k/cumm (0.11-0.7); Absolute Neutrophil Count 10.68 k/cumm (1.2-6.7); Basophils % 0.2; Eosinophils % 0.3; HCT 42.1 % (40.0-50.0); Immature Grans % 0.2; Mean Corp. HGB Concentration 33.3 g/dL (32.0-36.0); Mean Corpuscular Hemoglobin 29.4 pg (27.0-33.0); Mean Corpuscular Volume 88.4 fL (80-95); Mean Platelet Volume 10.3 fL (8.0-11.0); Monocytes % 3.7; Neutrophils % 81.6; Platelet Count 304 x1000/uL (130-400); RBC 4.76 m/cumm (4.50-6.00); White Blood Cell Count 13.09 k/cumm (4.4-10.8)
[2019-05-18 07:33] LABS: C-Reactive Protein 0.08 mg/dL (0.0-0.3)
[2019-05-18 07:36] LABS: Hemoglobin A1C 5.9 % (3.8-5.6)
[2019-05-18 07:39] VITALS: BP 141/67; PULSE 70; RESP 17; TEMP 36.6; O2SAT 97
[2019-05-18] MEDS: sulfaSALAzine 500 MG TABEC PO (08:40)
[2019-05-18 10:34] LABS: Campylobacter PCR Negative (Negative); Salmonella PCR Negative (Negative); Shiga Toxin PCR Negative (Negative); Shigella/Enteroinvasive Ecoli Negative (Negative)
--- NOTE | 2019-05-18 10:41 | W.NUTCONSULT ---
Date of service: 05/18/19 Time of Service: 10:41 Nutritional Consult ASSESSMENT: 44 yo male admitted with colitis. Able to tolerate soft low fiber diet since breakfast today. BMI wnl for age. Labs unremarkable. Not considered at nutritional risk. MONITORING AND EVALUATION: po intake and weight trends Time Spent in Nutritional Counseling and Treatment: 15 min spent face to face
--- NOTE | 2019-05-18 10:45 | CMPROGNOTE_ITS ---
- If Service Date Differs Date of service: 05/18/19 Time of Service: 10:45 Care Management Progress Note S/O: Yvan is lying in bed watching television when CM comes to meet with him. His and son are present in the room. Yvan reports he is feeling much better. He states he has progressed to a soft food diet and showered this morning. He is eager to return home to his family. CM will continue to follow. A: Yvan is a 44 year old male admitted to [facility] on 05/16/2019 for acute col itis. P: Yvan will return home when medically cleared by provider. Anticipate no new services at time of discharge. His , Christina, will transport him home via private vehicle when ready. CM continues to follow.
[2019-05-18] MEDS: Pantoprazole 40 MG VIAL IVP (12:25)
[2019-05-18 13:53] LABS: Myeloperoxidase Ab IgG <0.2 U; Proteinase 3 Ab (PR3) <0.2 U
[2019-05-18 14:43] LABS: ANA Interpretation Negative (Negative)
--- NOTE | 2019-05-18 15:23 | DSE_ITS ---
Date of service: 05/18/19 Time of Service: 15:24 DS: Diagnosis Discharge Diagnosis (1) Crohn's colitis: Status: Acute Discharge Plan Disposition Patient Disposition: AGAINST MEDICAL ADVICE Condition: Stable Discharge Details Chief Complaint: GI Bleed Clinical Impression: Colitis, Bright red rectal bleeding Reason For Visit: ACUTE COLITIS Admit Date/Time: 05/16/19 17:28 Admit Provider: Peggy Brennan Attending Provider: Peggy Brennan Primary Care Provider: Teresa Field ED Provider: Jane Monte Hospital Course Hospital Course: Mr. Maddox was admitted pn Home Meds and New Rx's Prescriptions: New sulfasalazine [Azulfidine EN-tabs] 500 mg Tablet,Delayed Release (Dr/Ec) 500 mg PO BID Qty: 60 RF: 2 acidophilus-pectin, citrus 25 million cell -100 mg Tablet 1 cap PO BID Qty: 60 RF: 0 omeprazole magnesium [Acid Associate Property Manager (omeprazole)] 20 mg capsule,delayed release(DR/EC) 40 mg PO DAILY Qty: 60 RF: 2 prednisone 10 mg tablet See Rx Instructions .ROUTE .COMPLEX Qty: 126 RF: 0 Discharge Instructions Instructions: Crohn Disease (GEN) Referrals: Peggy Brennan DO [OSTEOPATHIC DOCTOR] - 05/26/19 1:30 pm Activity:: Activity as Tolerated Diet:: low fiber diet Discharge Orders Discharge Orders: Discharge Order (Routine); Ordered 05/18/19 Ordered By: Alysa Davenport DS: Summary Status at Discharge Functional status at discharge: independent ambulation Overall status at discharge: patient is back to baseline Mental Status: mental status grossly normal Speech and Movement: speech and movement normal Mood: angry Affect: normal affect Exam Psych Mental Status: mental status grossly normal Speech and Movement: speech and movement normal Mood: angry Affect: normal affect DS: Data Vitals/I&O Vitals and I&O: Vital Signs Temperature 97.9 F 05/18/19 07:39 Temperature Source Tympanic 05/18/19 07:39 Pulse 70 05/18/19 07:39 Pulse Rhythm Regular 05/18/19 10:21 Pulse 65 05/16/19 16:50 Respiratory Rate 17 05/18/19 07:39 Respiratory Effort Non-Labored 05/18/19 10:21 Respiratory Depth Normal 05/18/19 10:21 Respiratory Pattern Normal 05/18/19 10:21 Blood Pressure 141/67 H 05/18/19 07:39 Blood Pressure Mean 97 05/16/19 16:45 Blood Pressure Position Sitting 05/16/19 15:01 Pulse Oximetry 97 05/18/19 07:39 Oxygen Delivery Method Room Air 05/18/19 07:39 Oxygen Flow Rate 0 05/18/19 07:39 Pain Level 0 05/18/19 07:39 Intake & Output 05/17/19 05/18/19 05/18/19 23:59 11:59 23:59 Intake Total 1926.834 / 3126.834 1407.333 / 1407.333 Balance 1926.834 / 2826.834 1407.333 / 1407.333 Intake: IV 1436.834 / 2636.834 1157.333 / 1157.333 Oral 490 / 490 250 / 250 Other: Urine Color Yellow Urine Appearance Clear Clear Urine Odor None Stool Characteristics Liquid Voiding Methods Toilet Data Completed and Pending Labs on day of discharge: Labs from last 24 hours 05/18/19 05/18/19 05/18/19 06:33 06:33 06:33 WBC 13.09 H RBC 4.76 Hgb 14.0 Hct 42.1 MCV 88.4 MCH 29.4 MCHC 33.3 RDW 14.0 Plt Count 304 MPV 10.3 Immature Gran % 0.2 Neutrophils % 81.6 Lymphocytes % 14.0 Monocytes % 3.7 Eosinophils % 0.3 Basophils % 0.2 Absolute Neutrophils 10.68 H Absolute Lymphocytes 1.83 Absolute Monocytes 0.48 Absolute Eosinophils 0.04 Absolute Basophils 0.03 Hemoglobin A1c 5.9 H C-Reactive Protein 0.08 Stool Campylobacter PCR Stool Salmonella PCR Stool Shigella PCR Proteinase 3 (PR3) Myeloperoxidase Ab Shiga Toxin (PCR) 05/16/19 05/16/19 22:30 15:15 WBC RBC Hgb Hct MCV MCH MCHC RDW Plt Count MPV Immature Gran % Neutrophils % Lymphocytes % Monocytes % Eosinophils % Basophils % Absolute Neutrophils Absolute Lymphocytes Absolute Monocytes Absolute Eosinophils Absolute Basophils Hemoglobin A1c C-Reactive Protein Stool Campylobacter PCR Negative Stool Salmonella PCR Negative Stool Shigella PCR Negative Proteinase 3 (PR3) <0.2 Myeloperoxidase Ab <0.2 Shiga Toxin (PCR) Negative PENDING SALE TO [facility] Medical History Colitis (Acute) Crohn's colitis (Acute) GERD with esophagitis (Acute) Hiatal hernia with GERD (Acute) No significant past medical history (Acute) Surgical History History of nasal surgery (Acute) History of total knee replacement (Acute) Open Carpal Tunnel release (01/21/17) LEFT/ Social History Smoking/Tobacco Use Status: Current every day Tobacco Type: cigarettes Alcohol Intake: never Drug use: Daily Substance use type: marijuana Do you feel safe at home: Yes Do you feel safe in your relationship?: Yes
--- NOTE | 2019-05-18 16:00 | NUR.NOTE ---
Pt educated regarding leaving AMA. Pt insisted that he was going to leave against medical advice. Pt left at 1552. Dr. Davenport kindly sent prescriptions to pts pharmacy at [facility]. Nursing Note:
--- NOTE | 2019-05-18 16:26 | PDOC.CMDIS ---
- If Service Date Differs Date of service: 05/18/19 Time of Service: 16:26 LACE Index Scoring Tool - Questions: Length of Stay (in days): 2 Acuity (Admit via E.D.?): Yes E.D. Visits: 3 - Answers: Total Score: 8 Risk of Readmission: Low Risk Care Management Discharge Reason for Hospitalization: Acute colitis. Discharge Plan: Yvan is returning home against medical advice. He will follow up with his primary care physician and plan of care as directed, including medication recommendations. His , Christina, is transporting him home via private vehicle. Patient/Family Education Needs: Nursing will review discharge instructions with Yvan re medications and follow-up appointments. Yvan is able to verbalize reason for hospitalization and how to manage care at home.
[2019-05-20 12:44] LABS: Calprotectin 660 mcg/g
[2019-05-20 14:13] LABS: c-ANCA Negative (Negative); p-ANCA Negative (Negative)
[2019-05-26 10:41] LABS: ACCA 20 (0-90); ALCA 4 (0-60); gASCA 13 (0-50)
[2019-05-26 10:43] LABS: AMCA 15 (0-100)
== END 2019-05-18 15:52 | disposition left against medical advice (07) | DRG 387 ==
LOC: ER 17:28 → MS 18:21
PROVIDERS: Admitting Provider Surgery; Emergency Provider Physician Assistant; PCP Nurse Practitioner Family; Visit Provider Surgery
PROC: 0DB98ZX Excision of Duodenum, Via Natural or Artificial Opening Endoscopic, Diagnostic (ICD-10-PCS; CPT 43239; principal; 2019-05-17 12:15)
DX: K50.10 Crohn's disease of large intestine without complications (principal); K21.0 Gastro-esophageal reflux disease with esophagitis; K44.9 Diaphragmatic hernia without obstruction or gangrene; K29.80 Duodenitis without bleeding; K31.89 Other diseases of stomach and duodenum; K57.30 Diverticulosis of large intestine without perforation or abscess without bleeding; F17.210 Nicotine dependence, cigarettes, uncomplicated
CPT/HCPCS: 43239; 45331; 36415; 80053; 83516; 83690; 84145; 85027; 86671; 86850; 86900; 86901; 87505; 88305; 96361; 96374; 96375; 99223; 99233; 99285; J1650; NC; 74177; 82150; 83036; 83605; 83630; 83735; 83993; 84443; 85025; 85610; 85730; 86038; 86140; 86255; 87324; 93005; 93010; J0131; J0696; J1720; J2250; J3010; J3490

== ENCOUNTER 2019-05-27 02:06 | Outpatient (CLI) | payer MEDICAID, SELFPAY ==
--- NOTE | 2019-05-27 07:44 | ETT_ITS ---
APPROVED REPORT Exam: Exercise Treadmill Patient Location: Out-Patient Room/Bed: Stress Nurse: Louise Caicedo RN BMI: 27.05 Baseline Rhythm: Sinus Rhythm Indications: Patient reports for the past year he has ???knifelike??? left sided chest pain with no r elation to activity and no other associated symptoms at least once a month. Medical History Medical History: Hiatial Hernia, GERD Cardiac Medications: None, Allergies: Animal Dander, Hay Cardiac Risk Factors: FHX of CAD, Hyperlipidemia, Smoking Previous Cardiac Procedures: None Pretest Chest Pain Characteristics: None Exercise History: Physically active Physical Disabilities: None Lung Sounds: Clear to auscultation Heart Sounds: Regular Stress Test Details Test: Exercise stress testing was performed using a Galdino protocol. Rest Stress HR Max Heart Rate (APMHR): 176 bpm Resting HR Supine: 66 bpm Target HR (85% APMHR): 149 bpm Resting HR Standin bpm Max HR Achieved: 160 bpm % of APMHR: 90 HR response to stress: Normal HR response to stress BP Resting BP Supine: 138/80 mmHg Resting BP Standin/80 mmHg Max BP: 190/80 mmHg BP response to stress: Normal blood pressure response to stress. ECG Resting ECG: Sinus Rhythm ST Change: Normal Ectopy: none Stress ECG: Sinus Tachycardia ST Change: Horizontal ST depression Lead(s): V5,V6 Stage: [address] Deviation: 1 mm Arrhythmia: none Recovery ECG: Sinus Rhythm Recovery ST Change: none Clinical Reason for Termination: Fatigue Stress Symptoms: None Exercise duration: 12 min38 sec Highest Stage Achieved: Stage 5: 5.0 mph at 18% grade. Exercise capacity: 13.91 METs Functional Capacity: Above average capacity Stress ECG Conclusion 1. The patient exercised for 12 minutes 38 seconds (14 METS) 2. The rate-pressure product was 30,000. 3. Patient had no symptoms during exercise and stopped due to fatigue. 4. There were transient upsloping ST depressions during stage IV of exercise. 5. This likely represents a normal stress exam. 6. The Wright Score (7) estimates an annual cardiovascular mortality of 0% and a five year survival of 95%. Using the Wright Score there is a low probability of any angiographic coronary disease. Protocol Used: Galdino Protocol Stress Test Summary STAGE Time (mins) Speed (mph) Grade (%) HR BP SYMPTOMS METS Supine 66 138/80 Standing 74 124/80 1 3 1.7 10 100 140/82 4.6 2 6 2.5 12 107 154/80 7 3 9 3.4 14 128 168/88 10.2 4 12 4.2 16 160 182/90 12.9 5 15 5.0 18 17.2 1 min recovery 141 174/70 3 min recovery 90 190/80 6 min recovery 78 142/80
--- NOTE | 2019-05-27 08:59 | DI.MRI_ITS ---
EXAM: MR ANGIO ABDOMEN CLINICAL HISTORY: ischemic colitis,K55.9. TECHNIQUE: Multiplanar multisequence MRI was performed. COMPARISON: No exams were available for comparison FINDINGS: MR angiography of the abdominal region was performed with contrast administration. Abdominal aorta i s of normal diameter. The celiac axis, superior mesenteric artery, renal arteries, and inferior mese nteric artery all are normal in appearance as visualized. Visualized major branches appear intact. The common iliac arteries and proximal internal and external iliac arteries appear intact. No aneury sm or dissection. IMPRESSION: Negative MR angiogram of the abdomen.
[2019-05-27] MEDS: Normal Saline - Diluent 50 ML VIAL IV (09:13)
== END 2019-05-27 02:26 ==
PROVIDERS: PCP Nurse Practitioner Family; Visit Provider Surgery
DX: R07.89 Other chest pain (principal); F17.200 Nicotine dependence, unspecified, uncomplicated; K21.0 Gastro-esophageal reflux disease with esophagitis; K55.9 Vascular disorder of intestine, unspecified; Z82.49 Family history of ischemic heart disease and other diseases of the circulatory system
CPT/HCPCS: 93017; C8900

== ENCOUNTER 2019-12-14 16:52 | Emergency (ER) | payer MEDICAID, SELFPAY ==
[2019-12-14 17:00] VITALS: BP 142/81; PULSE 80; RESP 16; TEMP 36.6; O2SAT 99
--- NOTE | 2019-12-14 17:00 | DI.RAD_ITS ---
EXAM: XR LUMBAR SPINE COMPLETE CLINICAL HISTORY: fall onto midline/L lower back. TECHNIQUE: 2D digital imaging was performed. COMPARISON: No exams were available for comparison FINDINGS: BONES: No fracture or destructive lesion. Vertebral bodies are unremarkable. No facet hypertrophy wily ntified. DISKS: Intervertebral disc spaces are maintained. ALIGNMENT: Lumbar spinal alignment is within normal limits. SOFT TISSUE: Normal. IMPRESSION: Unremarkable radiographs of the lumbar spine. DATA REPOSITORY: RADIATION DOSE DELIVERED:
--- NOTE | 2019-12-14 17:01 | W.ED.GENAD ---
Discharge Plan Disposition Patient Disposition: HOME Condition: Improving Discharge Details Chief Complaint: Nk/Back Pain Clinical Impression: Lumbar contusion Primary Care Provider: Teresa Feild ED Provider: Jane Monte Home Meds and New Rx's Prescriptions: New methocarbamol 500 mg tablet 500 mg PO Q6H PRN (Reason: muscle spasm) Qty: 14 RF: 0 Continued acetaminophen [Tylenol Extra Strength] 500 mg tablet 500 mg PO Q6H PRNRF: 0 Nexium Packet [address] for susp in packet 40 mg PO DAILY Qty: 30 RF: 12 omeprazole 40 mg capsule,delayed release(DR/EC) 40 mg PO DAILY Qty: 90 RF: 3 sulfasalazine [Azulfidine EN-tabs] 500 mg Tablet,Delayed Release (Dr/Ec) 500 mg PO BID Qty: 60 RF: 2 acidophilus-pectin, citrus 25 million cell -100 mg Tablet 1 cap PO BID Qty: 60 RF: 0 prednisone 10 mg tablet See Rx Instructions .ROUTE .COMPLEX Qty: 126 RF: 0 Discharge Instructions Instructions: Contusion in Adults (ED) Additional Instructions: Apply ice to the affected area several times daily for 20 minutes at a time. Alternate tylenol and motrin as needed and directed for pain. Take the oxycodone for pain not relieved with Tylenol or Motrin. Take the muscle relaxer as needed and directed. Follow-up with your primary care doctor in 1 week. Return to the emergency department with any worsening or new concerning symptoms. Discharge Data Discharge Date/Time-TO BE ENTERED AT DEPARTURE: 12/14/19 18:21 Discharge Physician: Jane Monte Medical Decision Making 44-year-old male presents with mid and left lower back for the past few days status post a fall down 13 steps 1 week ago. No cauda equina symptoms. He has localized tenderness to left lumbar paraspinal region as well as midline lumbar spine. No evidence of trauma, step-off or cellulitis. No focal deficits. Neurovascular intact. He took one 200 mg Motrin prior to arrival. Will give a dose of Toradol, oxycodone p.o. and refer for lumbar spine x-ray and reassess. X-ray negative for acute findings. Patient admitted to improvement of symptoms. Will give a prescription for methocarbamol as well as 4 tabs of oxycodone to go. He was advised of the importance of ice, alternating Tylenol and Motrin. Advised to follow up with the primary care doctor for re-evaluation. Usual and customary return precautions given prior to discharge. Medical Records Medical records reviewed: Yes I reviewed the patient's medical records. Imaging Data Radiologic Study: Radiologist's impression: XR Lumbosacral Spine, 4 or 5 Views Exam date and time: 12/14/2019 5:39 PM Age: 44 years old Clinical indication: Injury or trauma; Injury history: Fall onto midline/lower back; Initial encounter; Blunt trauma (contusions or hematomas); Injury date: 12/13/2019 TECHNIQUE: Imaging protocol: XR of the lumbosacral spine, 4 or 5 views. COMPARISON: No relevant prior studies available. FINDINGS: Vertebrae: No evidence for acute fracture or subluxation within the lumbar spine. Straightening of the normal lumbar lordosis, which may be due to muscle spasm. No evidence for a pars type stress reaction or stress fracture. Gastrointestinal tract: A nonobstructive bowel gas pattern is seen. Soft tissues: Unremarkable. IMPRESSION: No evidence for acute fracture or subluxation within the lumbar spine. HPI General Mode of arrival: wheelchair. Date/Time Provider Initiated Documentation: 12/14/19 16:52. Limitations to Documentation: no limitations. Information obtained by: patient. HPI Narrative: Patient is a 44-year-old male who presents with left-sided lower back pain after fall down the stairs last week. Patient states he fell down approximately 13 carpeted stairs hitting his left lower back on the way down. Patient states yesterday his back pain became worse with movement and to touch. He took ibuprofen and apply Lidoderm cream without relief. He denies any radiation of pain, paresthesias, bowel or bladder incontinence, abdominal pain, fever, leg weakness. Related Data Home Medications Medication Instructions Recorded Confirmed acidophilus-pectin, citrus 1 cap PO BID #60 tab 05/18/19 06/09/19 prednisone See Rx Instructions .ROUTE 05/18/19 06/09/19 .COMPLEX #126 tab sulfasalazine [Azulfidine EN-tabs] 500 mg PO BID #60 tab 05/18/19 06/09/19 acetaminophen 500 mg tablet 500 mg PO Q6H PRN 05/21/19 06/09/19 esomeprazole magnesium 40 mg 40 mg PO DAILY #30 each 05/21/19 06/09/19 granules delayed release for susp omeprazole 40 mg capsule,delayed 40 mg PO DAILY #90 cap 07/26/19 release methocarbamol 500 mg PO Q6H PRN #14 tab 12/14/19 Previous Rx's Medication Instructions Recorded acidophilus-pectin, citrus 1 cap PO BID #60 tab 05/18/19 prednisone See Rx Instructions .ROUTE 05/18/19 .COMPLEX #126 tab sulfasalazine [Azulfidine EN-tabs] 500 mg PO BID #60 tab 05/18/19 esomeprazole magnesium 40 mg 40 mg PO DAILY #30 each 05/21/19 granules delayed release for susp omeprazole 40 mg capsule,delayed 40 mg PO DAILY #90 cap 07/26/19 release methocarbamol 500 mg PO Q6H PRN #14 tab 12/14/19 Allergies Allergy/AdvReac Type Severity Reaction Status Date / Time animal dander Allergy Mild head Uncoded 12/14/19 17:02 congestion hay Allergy Uncoded 12/14/19 17:02 General ISIAH: 3 Review of Systems All systems reviewed & are unremarkable except as noted in HPI and below Constitutional Constitutional: Reports as per HPI, Denies chills and Denies fever(s) Eyes Eyes: Denies blurry vision ENT Ears, Nose, Mouth, and Throat: Denies dizziness, Denies sore throat and Denies throat swelling Cardiovascular Cardiovascular: Denies chest pain and Denies dyspnea Respiratory Respiratory: Denies cough and Denies dyspnea Gastrointestinal Gastrointestinal: Denies abdominal pain, Denies diarrhea and Denies vomiting Genitourinary Genitourinary: Denies hematuria and Denies dysuria Musculoskeletal Musculoskeletal: Reports back pain and Denies numbness Integumentary/Breasts Skin/Breast: Denies lesions and Denies rash Neurologic Neurologic: Denies dizziness, Denies localized weakness and Denies numbness Allergic/Immunologic Allergic/Immunologic: Denies throat swelling [facility] Medical History Chest pain (Acute) Colitis (Acute) GERD with esophagitis (Acute) Hiatal hernia with GERD (Acute) Ischemic colitis (Acute) Ischemic colitis (Acute) No significant past medical history (Acute) Rectal bleeding (Acute) Smoker (Acute) Surgical History History of nasal surgery (Acute) History of total knee replacement (Acute) Open Carpal Tunnel release (01/21/17) LEFT/ Social History Smoking/Tobacco Use Status: Current every day Tobacco Type: cigarettes Alcohol Intake: never Drug use: Daily Substance use type: marijuana Do you feel safe at home: Yes Do you feel safe in your relationship?: Yes Exam Const General: cooperative, healthy appearing and no acute distress HENMT Head: normal to inspection Face and sinus: normal facial exam Eyes General: appearance normal, both eyes and all related structures Pupils: PERRL EOM: EOM intact bilaterally Neck Neck: normal visual inspection and No submandibular swelling Lymphatic: no lymphadenopathy noted Chest Chest: normal inspection of the chest and no tenderness Resp Effort & Inspection: normal respiratory effort and able to speak in complete sentences Auscultation: clear to auscultation bilaterally Cardio Rate: regular rate Rhythm: regular rhythm GI Inspection: normal to inspection Palpation: soft, not firm, not rigid and nontender Auscultation: normal bowel sounds Male General Exam: Yes normal external exam Back/Spine/Pelvis Thoracic/Lumbar Spine: thoracic and lumbar spine normal to inspection, straight leg raise negative bilaterally, paraspinal tenderness (Left lumbar paraspinal region) and lumbar spinal tenderness Pelvis: no pain with anterior-posterior compression Skin General skin exam: no rashes or lesions noted Neuro General: patient alert, patient awake, patient oriented x3 and moves all extremities Cognition: normal cognition Speech: speech normal Motor: muscle tone normal throughout Sensory Exam: no sensory deficits noted DTR's: Rt Patellar: 2+, Lt Patellar: 2+, Rt Ankle: 2+ and Lt Ankle: 2+ Plantar Reflexes: Equivocal: bilateral (Negative babinski b/l ) Extrem General: normal to inspection, full ROM, capillary refill normal, no calf tenderness bilaterally and no edema Psych Appearance: grossly normal Mental Status: mental status grossly normal Speech and Movement: speech and movement normal Affect: normal affect
[2019-12-14] MEDS: Ketorolac 60 MG/2 ML VIAL IM (17:23)
[2019-12-14] MEDS: oxyCODONE 5 MG TAB PO (17:23)
--- NOTE | 2019-12-14 18:00 | DI.VRAD_ITS ---
PROCEDURE INFORMATION: Exam: XR Lumbosacral Spine, 4 or 5 Views Exam date and time: 12/14/2019 5:39 PM Age: 44 years old Clinical indication: Injury or trauma; Injury history: Fall onto midline/lower back; Initial encounter; Blunt trauma (contusions or hematomas); Injury date: 12/13/2019 TECHNIQUE: Imaging protocol: XR of the lumbosacral spine, 4 or 5 views. COMPARISON: No relevant prior studies available. FINDINGS: Vertebrae: No evidence for acute fracture or subluxation within the lumbar spine. Straightening of the normal lumbar lordosis, which may be due to muscle spasm. No evidence for a pars type stress reaction or stress fracture. Gastrointestinal tract: A nonobstructive bowel gas pattern is seen. Soft tissues: Unremarkable. IMPRESSION: No evidence for acute fracture or subluxation within the lumbar spine. Dictated and Authenticated by: Tess Gamez MD. Ordering:DELORES Lara MD
[2019-12-14 18:10] VITALS: BP 128/89; PULSE 63; RESP 16; TEMP 36.4; O2SAT 99
== END 2019-12-14 18:21 | disposition home or self-care (01) ==
PROVIDERS: Emergency Provider Physician Assistant; PCP Nurse Practitioner Family
DX: S30.0XXA Contusion of lower back and pelvis, initial encounter (principal); W10.8XXA Fall (on) (from) other stairs and steps, initial encounter
CPT/HCPCS: 96372; 99284; 72110; J1885

== ENCOUNTER 2020-08-28 04:21 | Outpatient (CLI) | payer MEDICAID, SELFPAY ==
[2020-08-28 17:46] LABS: Ferritin 84 ng/mL (26-388)
== END 2020-08-28 04:22 | disposition home or self-care (01) ==
LOC: LBO 04:21
PROVIDERS: PCP Nurse Practitioner Family; Visit Provider Nurse Practitioner
DX: M25.561 Pain in right knee (principal)
CPT/HCPCS: 36415; 82728

== ENCOUNTER 2020-08-30 07:07 | Emergency (ER) | payer MEDICAID, SELFPAY ==
[2020-08-30 07:12] VITALS: BP 159/98; PULSE 89; TEMP 36; O2SAT 98
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
[2020-08-30] MEDS: Dexamethasone 4 MG/ML VIAL IVP (08:07)
[2020-08-30 08:09] LABS: HCT 47.7 % (40.0-50.0); HGB 15.4 g/dL (13.5-17.5); MCH 29.6 pg (27.0-33.0); MCHC 32.3 % (32.0-36.0); MCV 91.6 fL (80-95); MPV 9.6 fL (8.0-11.0); Platelet Count 306 10^3/uL (130-400); RBC 5.21 10^6/uL (4.36-5.78); RDW 14.2 % (11.8-14.1); RDW-SD 47.8 fL; WBC 7.76 10^3/uL (4.4-10.8)
[2020-08-30 08:18] LABS: Anion Gap 8.3 mmol/L (3-11); BUN 14 mg/dL (7-18); CO2 28.7 mmol/L (21.0-32.0); CREATININE 1.1 mg/dL (0.70-1.30); Calcium 9.3 mg/dL (8.5-10.1); Chloride 106 mmol/L (98-107); Glucose 97 mg/dL (74-106); Sodium 143 mmol/L (136-145)
[2020-08-30] MEDS: Normal Saline - Diluent 50 ML VIAL IV (08:32)
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
--- NOTE | 2020-08-30 09:00 | DI.MRI_ITS ---
EXAM: MR BRAIN WO CLINICAL HISTORY: per radiology. L neck pain TECHNIQUE: Multiplanar multisequence MRI of the brain was performed. COMPARISON: No exams were available for comparison FINDINGS: CEREBRAL PARENCHYMA: There is no evidence of intracranial hemorrhage, mass effect, or shift of midline structures. There are no extra-axial fluid collections. Ventricles are not enlarged or shifted. There is no significant focal signal abnormality in the cerebellar hemispheres nor within the jory, m idbrain, and thalami. There is no abnormal signal abnormality in the periventricular white matter. There is no significant focal signal abnormality evident on diffusion imaging to suggest acute ischem ic event. PITUITARY GLAND: No mass nor parasellar abnormality. No obvious abnormality in the cavernous sinuses. FLOW VOIDS: The expected flow void are noted. No evidence of obvious aneurysm nor obvious vascular ma lformation. See separate MRA report PARANASAL SINUSES: The visualized paranasal sinuses appear unremarkable. No obvious finding ORBITS: No obvious findings. IMPRESSION: No significant intracranial findings on this noninfused MRI scan of the brain. DATA REPOSITORY:
--- NOTE | 2020-08-30 09:02 | DI.MRI_ITS ---
CLINICAL HISTORY: per radiology. L neck pain. TECHNIQUE: Performed on 1.5 mumtaz unit with [id number] sequence. No IV contrast.. CONTRAST MATERIAL: None COMPARISON: Prior MRI reviewed FINDINGS: The aortic arch anatomy is conventional. ANTERIOR CIRCULATION: There is no significant narrowing of the common carotid arteries. Both carotid bifurcations appear p atent without significant stenosis at this level nor in the proximal internal carotid arteries on eit her side. Both internal carotid arteries are demonstrated to be nicely patent in the upper neck and within the skull base-carotid canals. POSTERIOR CIRCULATION: Both vertebral arteries originated conventional fashion off of the subclavian arteries. These vessel s ascend is as patent vessels in the foramen transversarium, with the left vertebral artery being dom inant. There is no intraluminal thrombus within the vertebral arteries and no evidence of vertebral artery dissection. Both vertebral arteries contribute to the formation of the basilar artery at the skull base. IMPRESSION: Patent carotid and vertebral arteries in the neck. DATA REPOSITORY:
--- NOTE | 2020-08-30 09:02 | DI.MRI_ITS ---
EXAM: MR ANGIO BRAIN WO CLINICAL HISTORY: per radiology. L neck pain TECHNIQUE: Performed on 1.5 mumtaz unit with [id number] sequence. No IV contrast. COMPARISON: CT scan and MRI scan reviewed FINDINGS: ANTERIOR CIRCULATION: Both internal carotid arteries are demonstrated to be patent in the skull base-carotid canals as well as within the cavernous sinuses. The supraclinoid aspects of these vessels are patent. Both middle cerebral arteries are patent with no evidence of intraluminal filling defects. No aneurysms of thes e vessels. The left A1 segment is patent. The right A1 segment is not present. Both anterior cereb ral arteries are patent. The are. Both are fed by the left A1 segment. The right anterior cerebral artery is fed through the anterior communicating artery and there is no evidence of aneurysm at this level nor elsewhere in the [place] of will assist. POSTERIOR CIRCULATION: the basilar artery is formed at the skull base by contribution from both vertebral arteries, the left being dominant. the basilar artery ascends in the midline with normal luminal diameter and no evide nce of dissection or intraluminal thrombus. distally it gives off patent bilateral superior cerebell ar arteries and above this level terminates as patent posterior cerebral arteries. there is a fiberglass ski maker ior communicating artery on the left side of the [id number] which also contributes to blood antonia w in the left posterior cerebral artery. IMPRESSION: 1. Patent intracerebral arteries. No evidence of intraluminal thrombus. No evidence of aneurysm. 2. Incidentally noted is the fact that both anterior cerebral arteries are fed via the left A1 segmen t, as described above. There is no right A1 segment. DATA REPOSITORY:
== END 2020-08-30 11:22 | disposition home or self-care (01) ==
PROVIDERS: Emergency Provider Emergency Medicine; PCP Nurse Practitioner Family
DX: S16.1XXA Strain of muscle, fascia and tendon at neck level, initial encounter (principal); V86.55XS Driver of 3- or 4- wheeled all-terrain vehicle (ATV) injured in nontraffic accident, sequela; M62.838 Other muscle spasm; R42 Dizziness and giddiness
CPT/HCPCS: 36415; 70496; 70498; 70544; 70547; 80048; 85027; 96374; 99285; 70551; 99284; J1100

== ENCOUNTER 2021-01-04 14:01 | Emergency (ER) | payer MEDICAID, SELFPAY ==
[2021-01-04] VITALS (32 sets, daily range): BP systolic 104–134; BP diastolic 66–89; PULSE 59–83; RESP 13–24; TEMP 36.3; O2SAT 94–99
--- NOTE | 2021-01-04 14:00 | RT.EKG_ITS ---
APPROVED REPORT Exam: Resting ECG Reason for Exam: CHEST PAIN Patient Location: E HR:63 bpm ECG Measurements Heart Rate 63 AXIS TX 139 P 60 QRSd 83 QRS 2 QT 405 T 44 QTc 416 Conclusion Sinus rhythm...normal P axis, V-rate 60- 99
--- NOTE | 2021-01-04 15:19 | ED.GENADUL_ITS ---
Discharge Plan Disposition Patient Disposition: HOME Condition: Stable Discharge Details Clinical Impression: Cough, Bilateral pneumonia Primary Care Provider: Teresa Field ED Provider: Tigist Toro Home Meds and New Rx's Prescriptions: New doxycycline hyclate 100 mg tablet 100 mg PO BID 7 Days Qty: 14 RF: 0 benzonatate [Tessalon Perles] 100 mg capsule 100 mg PO BID PRN (Reason: cough) Qty: 7 RF: 0 No Action acetaminophen [Tylenol Extra Strength] 500 mg tablet 500 mg PO Q6H PRNRF: 0 omeprazole 40 mg capsule,delayed release(DR/EC) 40 mg PO DAILY Qty: 90 RF: 3 gabapentin 300 mg capsule 300 mg PO HS RF: 0 Discharge Instructions Instructions: Pneumonia (ED) Additional Instructions: The Covid swab today is negative. However the chest x-ray does show that you have possible early pneumonia in the bilateral bases of your lungs. We will start you on antibiotics today. Please take the doxycycline twice daily as directed for the next 7 days. Take the Tessalon Perles as needed for cough. Follow up with primary care provider in 3-5 days. Return to ED sooner if any worsening or concerns. Increase oral fluids. Please take Tylenol or Ibuprofen with food every 4-6 hours as needed for pain and swelling. Stand Alone Forms: Work Release Referrals: Teresa Field [Primary Care Provider] - Discharge Data Discharge Date/Time-TO BE ENTERED AT DEPARTURE: 01/04/21 17:45 Medical Decision Making <TERESA Garcia - Last Filed: 01/04/21 16:59> 45-year-old gentleman presents complaining of cough, congestion, chest pain when coughing, rhinorrhea and sinus pressure that began on Friday. This began after working outside. He is a smoker. No chest pain at rest. Given his symptom appears to be infectious in nature versus potential allergen exposure. Extremely low suspicion for ACS, PE, etc. Given the timeframe of his symptoms will obtain a single troponin and EKG. Will obtain routine laboratory values, and chest x-ray and a Covid swab. Clinically he appears well, nontoxic, afebrile, O2 sats are 97% on room air. Lungs are clear to auscultation. Initial laboratory values are unremarkable. Covid swab and chest x-ray pending. Patient resting comfortably. Medical Records Medical records reviewed: Yes I reviewed the patient's medical records. Lab Data Lab results reviewed: Yes I reviewed the patient's lab results. Labs: Laboratory Tests Range/Units 01/04/21 01/04/21 01/04/21 14:36 14:36 15:45 WBC (4.4-10.8) 10^3/uL 8.79 RBC (4.36-5.78) 10^6/uL 4.95 Hgb (13.5-17.5) g/dL 14.8 Hct (40.0-50.0) % 45.4 MCV (80-95) fL 91.7 MCH (27.0-33.0) pg 29.9 MCHC (32.0-36.0) % 32.6 RDW (11.8-14.1) % 14.2 H Plt Count (130-400) 10^3/uL 253 MPV (8.0-11.0) fL 10.0 Immature Gran % 0.2 Neutrophils % 65.3 Lymphocytes % 20.1 Monocytes % 7.3 Eosinophils % 6.5 Basophils % 0.6 Nucleated RBC % % 0 Absolute Neutrophils (1.2-6.7) 10^3/uL 5.74 Absolute Lymphocytes (1.2-3.4) 10^3/uL 1.77 Absolute Monocytes (0.1-0.8) 10^3/uL 0.64 Absolute Eosinophils (0.0-0.7) 10^3/uL 0.57 Absolute Basophils (0.0-0.2) 10^3/uL 0.05 Sodium (136-145) mmol/L 142 Potassium (3.5-5.1) mmol/L 4.0 Chloride (98-107) mmol/L 105 Carbon Dioxide (21.0-32.0) mmol/L 29.1 Anion Gap (3-11) mmol/L 7.9 BUN (7-18) mg/dL 12 Creatinine (0.70-1.30) mg/dL 1.1 Estimated GFR/1.73 m2 (mL/min/1.73m2) >= 60.00 Glucose (74-106) mg/dL 97 Calcium (8.5-10.1) mg/dL 9.6 Total Bilirubin (0.2-1.0) mg/dL 0.6 AST (15-37) U/L 19 ALT (16-63) U/L 46 Alkaline Phosphatase (46-116) U/L 68 Troponin I (<0.06) ng/mL < 0.05 Total Protein (6.4-8.2) g/dL 8.0 Albumin (3.4-5.0) g/dL 3.8 COVID-19 Source Nasal/Nares SARS-CoV-2 (PCR) (Negative) Negative ECG Data Attestation: I personally reviewed and interpreted this ECG (s) as follows: Interpretation: Please see official report by Dr. Hopper. Sinus rhythm, ventricular rate of 63, no STEMI <Tigist Muna - Last Filed: 01/04/21 21:27> 1640: Care assumed from provider (TERESA Livingston) Please see their initial HPI, PE, and documentation. Discussed patient details and case and pending workup and disposition. Patient is hemodynamically stable, and alert and oriented. At this time we are awaiting a in-house Covid swab results and chest x-ray. Covid swab is negative at this time. Chest x-ray as noted below. Imaging protocol: XR of the chest. Views: 1 view. COMPARISON: MR ANGIO NECK WO 08/30/2020 9:33 AM FINDINGS: Lungs: Subtle patchy ground-glass opacities within the bilateral pulmonary bases raises suspicion for early pulmonary infiltrates. Pleural spaces: Unremarkable. No pleural effusion. No pneumothorax. Heart/Mediastinum: Unremarkable. No cardiomegaly. Bones/joints: Unremarkable. IMPRESSION: Subtle patchy ground-glass opacities within the bilateral pulmonary bases raises suspicion for early pulmonary infiltrates. Recommend follow-up chest x-ray. Thank you for allowing us to participate in the care of your patient. Dictated and Authenticated by: Dominik Nieves MD We will place patient on antibiotics (Doxycycline) twice a day for 7 days for pneumonia. Discussed x-ray results with patient who verbalized understanding. Instructed to return for any worsening. This text was generated using [employer] system, please disregard any oddities of phrase or misspellings. HPI <TERESA Garcia - Last Filed: 01/04/21 16:59> General Mode of arrival: ambulatory . Date/Time Provider Initiated Documentation: 01/04/21 14:45 . Limitations to Documentation: no limitations . Information obtained by: patient . HPI Narrative: 45-year-old gentleman, denies significant past medical history, current smoker, presents with chest congestion, chest pain when coughing, colorful sputum, sinus pain and pressure that began on Friday. He does report that he works outside and questions if this could be some allergies, has not taken any medication for his symptoms. He has not been vaccinated against Covid. Denies recent sick contacts or travel. He denies any chest pain at rest. Denies pain or swelling in his legs. Denies headache, fever, abdominal pain, nausea, vomiting, back pain. Does report sore throat after coughing. Related Data Home Medications Medication Instructions Recorded Confirmed acetaminophen 500 mg tablet 500 mg PO Q6H PRN 05/21/19 01/04/21 omeprazole 40 mg capsule,delayed 40 mg PO DAILY #90 cap 07/26/19 01/04/21 release gabapentin 300 mg PO HS 08/30/20 01/04/21 benzonatate [Tessalon Perles] 100 mg PO BID PRN #7 cap 01/04/21 doxycycline hyclate 100 mg PO BID 7 Days #14 tab 01/04/21 Previous Rx's Medication Instructions Recorded omeprazole 40 mg capsule,delayed 40 mg PO DAILY #90 cap 07/26/19 release benzonatate [Tessalon Perles] 100 mg PO BID PRN #7 cap 01/04/21 doxycycline hyclate 100 mg PO BID 7 Days #14 tab 01/04/21 Allergies Allergy/AdvReac Type Severity Reaction Status Date / Time animal dander Allergy Mild head Uncoded 01/04/21 14:35 congestion hay Allergy Uncoded 01/04/21 14:35 General Stated Complaint: Chest Pain ISIAH: 2 Review of Systems <TERESA Garcia - Last Filed: 01/04/21 16:59> Constitutional Constitutional: Denies fever(s) and Denies headache(s) ENT Ears, Nose, Mouth, and Throat: Denies headache(s), Denies neck pain and Reports sore throat Cardiovascular Cardiovascular: Reports chest pain (When coughing) and Denies dyspnea Respiratory Respiratory: Reports cough and Denies dyspnea Gastrointestinal Gastrointestinal: Denies abdominal pain, Denies nausea and Denies vomiting Musculoskeletal Musculoskeletal: Denies back pain and Denies neck pain Integumentary/Breasts Skin/Breast: Denies rash Neurologic Neurologic: Denies headache(s) PFSH <TERESA Garcia - Last Filed: 01/04/21 16:59> Medical History Chest pain Colitis GERD with esophagitis Hiatal hernia with GERD Ischemic colitis Ischemic colitis No significant past medical history Rectal bleeding Smoker Surgical History History of nasal surgery History of total knee replacement Open Carpal Tunnel release (01/21/17) LEFT/ Social History Smoking/Tobacco Use Status: Current every day Tobacco Type: cigarettes Smoking risk assessment performed?: Yes Alcohol Intake: never Drug use: Daily Substance use type: marijuana Do you feel safe at home: Yes Do you feel safe in your relationship?: Yes Exam <TERESA Garcia - Last Filed: 01/04/21 16:59> Const General: cooperative, healthy appearing, comfortable and no acute distress Orientation: alert and awake [facility] Head: normal to inspection, normocephalic and atraumatic General nose exam: nasal discharge clear Mouth: moist mucous membranes Throat: posterior oropharynx abnormal erythema (Minimal) Eyes General: appearance normal, both eyes and all related structures Conjunctivae: conjunctivae normal Neck Neck: normal visual inspection, full ROM, trachea midline and supple Resp Effort & Inspection: normal respiratory effort, able to speak in complete sentences and cough Quality of cough: dry (Mild) Auscultation: wheezes (Minimal scattered wheeze, cleared with coughing) Cardio Rate: regular rate Rhythm: regular rhythm Back/Spine/Pelvis Back: No back tenderness Skin General skin exam: no rashes or lesions noted Neuro General: patient alert, patient awake, moves all extremities and no focal motor deficits Gait: normal gait Sensory Exam: no sensory deficits noted Extrem General: normal to inspection, full ROM, capillary refill normal, no pedal edema and no calf tenderness Psych Appearance: grossly normal Mental Status: mental status grossly normal Course <TERESA Garcia - Last Filed: 01/04/21 16:59> Vital Signs Vital signs: Vital Signs Temperature 36.3 C L 01/04/21 14:27 Pulse 76 01/04/21 14:27 Respiratory Rate 18 01/04/21 14:27 Blood Pressure 133/89 01/04/21 14:27 Pulse Oximetry 97 01/04/21 14:27 Temperature 36.3 C L 01/04/21 14:27 Temperature Source Tympanic 01/04/21 14:27 Pulse 76 01/04/21 14:27 Respiratory Rate 18 01/04/21 14:38 Respiratory Effort 01/04/21 14:38 Respiratory Depth Normal 01/04/21 14:38 Respiratory Pattern Normal 01/04/21 14:38 Blood Pressure 133/89 01/04/21 14:27 Pulse Oximetry 97 01/04/21 14:27 Oxygen Delivery Method Room Air 01/04/21 14:27 Oxygen Flow Rate 0 01/04/21 14:27 Pain Level 5 01/04/21 14:38 Comment 01/04/21 14:27 Sign Out <TERESA Garcia - Last Filed: 01/04/21 16:59> Sign Out Data: Sign Out Comment: Cough, congestion since Friday. Covid and chest x-ray pending, likely discharge home. Patient stable, afebrile no hypoxemia Last updated by Jose Manuel Ellis PA at 01/04/21 16:23
[2021-01-04 15:30] LABS: Abs Immature Grans 0.02 10^3/uL (0.0-0.06); Absolute Basophil Count 0.05 10^3/uL (0.0-0.2); Absolute Eosinophil Count 0.57 10^3/uL (0.0-0.7); Absolute Lymphocyte Count 1.77 10^3/uL (1.2-3.4); Absolute Monocyte Count 0.64 10^3/uL (0.1-0.8); Absolute Neutrophil Count 5.74 10^3/uL (1.2-6.7); Basophils % 0.6; Eosinophils % 6.5; HCT 45.4 % (40.0-50.0); HGB 14.8 g/dL (13.5-17.5); Immature Grans % 0.2; Lymphocytes % 20.1; MCH 29.9 pg (27.0-33.0); MCHC 32.6 % (32.0-36.0); MCV 91.7 fL (80-95); Monocytes % 7.3; Neutrophils % 65.3; Nucleated RBC 0 %; Platelet Count 253 10^3/uL (130-400); RBC 4.95 10^6/uL (4.36-5.78); RDW 14.2 % (11.8-14.1); RDW-SD 48.3 fL; WBC 8.79 10^3/uL (4.4-10.8)
--- NOTE | 2021-01-04 15:45 | DI.RAD_ITS ---
Exam(s) XR PORTABLE CHEST AP EXAM: XR PORTABLE CHEST AP CLINICAL HISTORY: cough TECHNIQUE: 2D digital imaging was performed. COMPARISON: CR XR shoulder LT complete 2+V from 02/23/2018 FINDINGS: MEDIASTINUM: Normal. HEART: Normal. PULMONARY VASCULATURE: Normal. LUNGS: Clear. PLEURAL SPACE: No pleural effusion or pneumothorax. BONE:Within normal limits for the patient's age. OTHER FINDINGS:Normal. IMPRESSION: 1. No focal consolidating infiltrates. 2. If symptoms persist a follow-up examination may be obtained. DATA REPOSITORY: RADIATION DOSE DELIVERED:
[2021-01-04 15:49] LABS: ALT 46 U/L (16-63); AST 19 U/L (15-37); Albumin 3.8 g/dL (3.4-5.0); Alkaline Phosphatase 68 U/L (46-116); Anion Gap 7.9 mmol/L (3-11); BUN 12 mg/dL (7-18); Bilirubin, Total 0.6 mg/dL (0.2-1.0); CO2 29.1 mmol/L (21.0-32.0); CREATININE 1.1 mg/dL (0.70-1.30); Calcium 9.6 mg/dL (8.5-10.1); Chloride 105 mmol/L (98-107); Glucose 97 mg/dL (74-106); Sodium 142 mmol/L (136-145); Troponin I < 0.05 ng/mL (<0.06)
[2021-01-04 15:52] LABS: Source Nasal/Nares
[2021-01-04 16:44] LABS: COVID-19 PCR Negative (Negative)
--- NOTE | 2021-01-04 17:13 | DI.VRAD_ITS ---
PROCEDURE INFORMATION: Exam: XR Chest Exam date and time: 01/04/2021 3:56 PM Age: 45 years old Clinical indication: Cough TECHNIQUE: Imaging protocol: XR of the chest. Views: 1 view. COMPARISON: MR ANGIO NECK WO 08/30/2020 9:33 AM FINDINGS: Lungs: Subtle patchy ground-glass opacities within the bilateral pulmonary bases raises suspicion for early pulmonary infiltrates. Pleural spaces: Unremarkable. No pleural effusion. No pneumothorax. Heart/Mediastinum: Unremarkable. No cardiomegaly. Bones/joints: Unremarkable. IMPRESSION: Subtle patchy ground-glass opacities within the bilateral pulmonary bases raises suspicion for early pulmonary infiltrates. Recommend follow-up chest x-ray. Dictated and Authenticated by: Dominik Nieves MD. Ordering:CAIN Richard MD
[2021-01-04] MEDS: Benzonatate 100 MG CAP PO (17:36)
[2021-01-04] MEDS: Doxycycline Hyclate 100 MG CAP PO (17:36)
== END 2021-01-04 17:45 | disposition home or self-care (01) ==
PROVIDERS: Physician Assistant; Emergency Provider Registered Nurse Emergency; PCP Nurse Practitioner Family
DX: J18.8 Other pneumonia, unspecified organism (principal); R07.1 Chest pain on breathing; F17.210 Nicotine dependence, cigarettes, uncomplicated; Z20.822 Contact with and (suspected) exposure to COVID-19; Z03.818 Encounter for observation for suspected exposure to other biological agents ruled out
CPT/HCPCS: 36415; 80053; 87635; 93005; 99285; 71045; 84484; 85025; 93010; 99284

== ENCOUNTER 2021-10-04 19:36 | Emergency (ER) | payer MEDICAID, SELFPAY ==
[2021-10-04 19:51] VITALS: BP 122/80; PULSE 64; RESP 16; TEMP 36.2; O2SAT 99
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
[2021-10-04] MEDS: Cyclobenzaprine 10 MG TAB PO (20:26)
[2021-10-04] MEDS: oxyCODONE 5 mg/Acetaminophen 325 mg TAB 1 TAB PO (20:26)
[2021-10-04] MEDS: Lidocaine 5% Patch 1 PATCH TP (20:27)
== END 2021-10-04 20:44 | disposition home or self-care (01) ==
PROVIDERS: Emergency Provider Emergency Medicine; PCP Nurse Practitioner Family
DX: S10.81XA Abrasion of other specified part of neck, initial encounter (principal); S00.412A Abrasion of left ear, initial encounter; S00.81XA Abrasion of other part of head, initial encounter; V43.62XA Car passenger injured in collision with other type car in traffic accident, initial encounter; W22.12XA Striking against or struck by front passenger side automobile airbag, initial encounter
CPT/HCPCS: 99283

== ENCOUNTER 2022-12-16 19:12 | Outpatient (REF) | payer MEDICAID, SELFPAY ==
[2022-12-16 19:29] LABS: Abs Immature Grans 0.05 10^3/uL (0.0-0.06); Absolute Basophil Count 0.08 10^3/uL (0.0-0.2); Absolute Eosinophil Count 0.24 10^3/uL (0.0-0.7); Absolute Lymphocyte Count 2.58 10^3/uL (1.2-3.4); Absolute Monocyte Count 0.51 10^3/uL (0.1-0.8); Basophils % 0.7; Eosinophils % 2.1; HCT 50.3 % (40.0-50.0); HGB 16.7 g/dL (13.5-17.5); Immature Grans % 0.4; Lymphocytes % 22.3; MCH 29.7 pg (27.0-33.0); MCHC 33.2 % (32.0-36.0); MCV 89 fL (80-95); MPV 10.6 fL (8.0-11.0); Monocytes % 4.4; Neutrophils % 70.1; Platelet Count 313 10^3/uL (130-400); RBC 5.63 10^6/uL (4.36-5.78); RDW 13.8 % (11.8-14.1); RDW-SD 45.4 fL; WBC 11.55 10^3/uL (4.4-10.8)
[2022-12-16 19:55] LABS: Hemoglobin A1C 5.6 % (<5.7)
[2022-12-16 19:56] LABS: ALT 31 U/L (16-63); AST 14 U/L (15-37); Albumin 4.2 g/dL (3.4-5.0); Alkaline Phosphatase 83 U/L (46-116); Anion Gap 9.8 mmol/L (3-11); BUN 14 mg/dL (7-18); Bilirubin, Total 0.4 mg/dL (0.2-1.0); CO2 25.2 mmol/L (21.0-32.0); CREATININE 1.2 mg/dL (0.70-1.30); Calcium 9.6 mg/dL (8.5-10.1); Chloride 106 mmol/L (98-107); Estimated GFR 75.06 (mL/min/1.73m2); Glucose 85 mg/dL (74-106); Potassium 4.4 mmol/L (3.5-5.1); Sodium 141 mmol/L (136-145); TSH (W/Ref FT4) 2.69 uIU/mL (0.36-3.74)
[2022-12-16 20:19] LABS: Iron 56 ug/dL (65-175); Total Iron Binding Capacity 386 ug/dL (250-450); Transferrin Sat 15 % (20-55)
[2022-12-16 20:41] LABS: Calculated LDL 86 mg/dL (<100); Cholesterol 185 mg/dL (<200); HDL Cholesterol 32 mg/dL (40-60); Triglyceride 338 mg/dL (<150)
== END 2022-12-16 19:13 | disposition home or self-care (01) ==
LOC: NCHCN 19:12
PROVIDERS: PCP Nurse Practitioner Family; Visit Provider Nurse Practitioner Family
DX: K21.9 Gastro-esophageal reflux disease without esophagitis (principal); G25.81 Restless legs syndrome; R73.03 Prediabetes; F17.210 Nicotine dependence, cigarettes, uncomplicated
CPT/HCPCS: 80053; 80061; 83036; 83540; 83550; 84443; 85025

== ENCOUNTER 2023-10-26 05:08 | Emergency (ER) | payer MEDICAID, SELFPAY ==
[2023-10-26 05:11] VITALS: BP 173/111; PULSE 71; RESP 21; TEMP 36.7; O2SAT 95
--- NOTE | 2023-10-26 05:20 | W.ED.GENAD ---
Discharge Plan Disposition Patient Disposition: Home Condition: Good Discharge Details Clinical Impression: Lymph node symptom, Pharyngitis Primary Care Provider: Unknown,Unknown ED Provider: Moises Gill Home Meds and New Rx's Prescriptions: New penicillin V potassium 500 mg tablet 500 mg PO QID 10 Days Qty: 40 0RF No Action omeprazole 40 mg capsule,delayed release(DR/EC) 40 mg PO DAILY Qty: 90 3RF gabapentin 300 mg capsule 300 mg PO HS Patient Comments: TAKE 1 CAPSULE BY MOUTH AT BEDTIME Discharge Instructions Instructions: Pharyngitis (ED) Additional Instructions: At this time there is a mild lymph node that is causing her symptoms. This likely may be from a virus or a mild infection in your teeth. Please take the antibiotic as directed. Please take Tylenol and Motrin as needed for pain. If you notice any worsening of your symptoms, or any new symptoms such as vomiting, diarrhea, fever, chills, shortness of breath, chest pain, numbness, weakness, or fainting , please return immediately to the emergency department for reevaluation. Please follow up with your primary care provider as soon as possible for reassessment and reevaluation. As always, it was a pleasure participating in your medical care today. HPI General Date/Time Provider Initiated Documentation: 10/26/23 05:11. HPI Narrative: This is a pleasant 48-year-old male with past medical history of GERD and colitis who presents today for evaluation of difficulty swallowing. Patient states that he woke up about 30 minutes prior to arrival with a sensation of difficulty swallowing in his right throat, and feeling like there was a foreign body in there. He drank water and had difficulty getting this down reportedly. He denies any other symptoms aside from mild pain. He denies fever, chills, shortness of breath. He denies chest pain or cough. He denies any new antibiotic or medication use. He denies ACEs or ARB use. He denies any other complaints. He does have a history of mild dental caries. Related Data Home Medications Medication Instructions Recorded Confirmed omeprazole 40 mg capsule,delayed 40 mg PO DAILY #90 caps 07/26/19 10/26/23 release gabapentin 300 mg capsule 300 mg PO HS 08/30/20 10/26/23 penicillin V potassium 500 mg 500 mg PO QID 10 days #40 tabs 10/26/23 tablet Previous Rx's Medication Instructions Recorded omeprazole 40 mg capsule,delayed 40 mg PO DAILY #90 caps 07/26/19 release penicillin V potassium 500 mg 500 mg PO QID 10 days #40 tabs 10/26/23 tablet Allergies Allergy/AdvReac Type Severity Reaction Status Date / Time animal dander Allergy Mild head Uncoded 10/04/21 19:59 congestion hay Allergy Uncoded 10/04/21 19:59 General Stated Complaint: Nk/Back Pain ISIAH: 3 Review of Systems All systems reviewed & are unremarkable except as noted in HPI and below Exam Narrative Exam Narrative: 1.Const: Well-nourished, Well-developed, appearing stated age 2.Eyes: PERRL, no conjunctival injection, and symmetrical lids. 3.ENT: Atraumatic external nose and ears. Moist MM. Neck: Symmetric, trachea midline, No thyromegaly. No tonsillar swelling or edema. No erythema in the posterior oropharynx. Single lymph node is palpated in the right lower mandibular region. This appears to be the location of his symptoms. No periapical swelling. No evidence of Ludewig's angina. No stridor. No difficulty controlling secretions. 4.CVS: +S1/S2, No murmurs or gallops. Peripheral pulses 2+ and equal in all extremities. Brisk capillary refill in all extremities. 5.RESP: Unlabored respiratory effort. Clear to auscultation bilaterally. No wheezes rales or rhonchi 6.GI: Soft, Nontender/Nondistended, No hepatosplenomegaly. No guarding or rebound. 7.MSK: Normocephalic/Atraumatic, Extremities w/o deformity or ttp No cyanosis or clubbing, Normal movement of all extremities 8.Skin: Warm, Dry. No rashes or lesions. 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 Sensation grossly intact, no focal neurologic deficits. 10.Psych: (AAO) x3. Appropriate mood and affect Course Vital Signs Vital signs: Vital Signs Temperature 36.7 C 10/26/23 05:11 Pulse 71 10/26/23 05:11 Respiratory Rate 21 10/26/23 05:11 Blood Pressure 173/111 H 10/26/23 05:11 Pulse Oximetry 95 10/26/23 05:11 Temperature 36.7 C 10/26/23 05:11 Temperature Source Temporal Artery Scan 10/26/23 05:11 Pulse 71 10/26/23 05:11 Respiratory Rate 21 10/26/23 05:11 Respiratory Effort Normal, Non-Labored 10/26/23 05:15 Blood Pressure 173/111 H 10/26/23 05:11 Blood Pressure Position Sitting 10/26/23 05:11 Pulse Oximetry 95 10/26/23 05:11 Oxygen Delivery Method Room Air 10/26/23 05:11 Oxygen Flow Rate 0 10/26/23 05:11 Pain Level 7 10/26/23 05:15 Medical Decision Making This is a pleasant 48-year-old male with past medical history of GERD and colitis who presents today for evaluation of difficulty swallowing. Patient states that he woke up about 30 minutes prior to arrival with a sensation of difficulty swallowing in his right throat, and feeling like there was a foreign body in there. He drank water and had difficulty getting this down reportedly. He denies any other symptoms aside from mild pain. He denies fever, chills, shortness of breath. He denies chest pain or cough. He denies any new antibiotic or medication use. He denies ACEs or ARB use. He denies any other complaints. He does have a history of mild dental caries. Exam demonstrates well-appearing male, posterior oropharynx shows no evidence of erythema, edema, or other significant abnormality. Singular lymph node is noted in the right lower mandibular space. No other abnormalities. No evidence of Ludewig's angina. Out of an abundance of precaution we will get CT imaging to confirm no abscess. Will give Decadron and Toradol. Will gently rehydrate, monitor closely and reassess. 6:15 AM On reassessment patient is feeling much better, symptoms have resolved after steroid and NSAIDs. CT scan shows no evidence of acute process per radiology. Patient feels well, he shows no signs of oropharyngeal compromise otherwise. Patient stable for discharge. Suspect potential mild dental carry causing the inflammation and lymphadenopathy. Will give prescription/course for penicillin. Recommend continued NSAIDs at home. Discussed red flags for which to return. Patient stable for discharge. No signs of airway compromise difficulty breathing or difficulty swallowing at time of discharge. I have extensively reviewed the treatment plan and discharge instructions with the patient. I have addressed all patient concerns at this time. The patient was made aware of what symptoms to monitor for that would warrant a return to the emergency department. Discussed the plan with the patient, they demonstrate verbal understanding and agreement with our assessment and plan at this time. The documentation in this chart was dictated using [employer] dictation software. Please excuse any dictation errors. FINDINGS: Salivary glands: Submandibular glands are normal. No sialolithiasis. Pharynx: Unremarkable. No significant tonsillar enlargement. Prevertebral and retropharyngeal spaces: Unremarkable. Larynx: Unremarkable. Epiglottis is normal. Thyroid: Normal. No enlarged or calcified nodules. Trachea: Visualized trachea is unremarkable. Lungs: Unremarkable as visualized. Lymph nodes: Unremarkable. No lymphadenopathy. Bones/joints: Unremarkable. No acute fracture. Soft tissues: Unremarkable. No significant soft tissue swelling. Other findings: No evidence of Carlos's angina IMPRESSION: 1. No discernible foreign body. No inflammation, hematoma, soft tissue gas, or collection. 2. No acute findings. Thank you for allowing us to participate in the care of your patient. Dictated and Authenticated by: Dinesh Barron MD 10/26/2023 6:06 AM Eastern Time ([place] & [place]) Quality:SDOH Health Related Social Needs: No Data to Display PFSH All Active Problems (Updated 10/26/23 @ 06:15 by Moises Gill DO) Pharyngitis (Acute) Lymph node symptom (Acute) Prediabetes (Acute) Bilateral pneumonia (Acute) Cough (Acute) Strain of cervical portion of left trapezius muscle (Acute) Ischemic colitis (Acute) Rectal bleeding (Acute) Chest pain (Acute) Ischemic colitis (Acute) Hiatal hernia with GERD (Acute) Colitis (Acute) Medical History Restless leg Smoker GERD with esophagitis Shoulder pain Left rotator cuff tendinitis rule out small tear of the supraspinatus. Previous history of shoulder injury from falling off a ladder could represent a SLAP lesion although he does not have any thing on exam to suggest a SLAP lesion or instability. Will start on formal PT after the steroid injection is given today. In addition I put him on some internal rotation stretching exercises to get a head start on his PT. Follow-up with me in 4-6 weeks. He will stay out of work until he is asymptomatic. Sleep disorder Surgical History History of colonoscopy (~2019) History of nasal surgery History of total knee replacement Open Carpal Tunnel release (01/21/17) LEFT/ Social History Smoking/Tobacco Use Status: Current every day Tobacco Type: cigarettes Smoking risk assessment performed?: Yes Alcohol Intake: never Drug use: Daily Substance use type: marijuana Housing: house Do you feel safe at home: Yes Do you feel safe in your relationship?: Yes
[2023-10-26 05:31] LABS: Abs Immature Grans 0.02 10^3/uL (0.0-0.06); Absolute Basophil Count 0.06 10^3/uL (0.0-0.2); Absolute Eosinophil Count 0.51 10^3/uL (0.0-0.7); Absolute Lymphocyte Count 2.78 10^3/uL (1.2-3.4); Absolute Monocyte Count 0.46 10^3/uL (0.1-0.8); Absolute Neutrophil Count 4.78 10^3/uL (1.2-6.7); Basophils % 0.7 %; Eosinophils % 5.9 %; HCT 44.8 % (40.0-50.0); HGB 14.4 g/dL (13.5-17.5); Immature Grans % 0.2 %; Lymphocytes % 32.3 %; MCH 29.8 pg (27.0-33.0); MCHC 32.1 % (32.0-36.0); MCV 93 fL (80-95); MPV 9.7 fL (8.0-11.0); Monocytes % 5.3 %; Neutrophils % 55.6 %; Platelet Count 287 10^3/uL (130-400); RBC 4.83 10^6/uL (4.36-5.78); RDW-SD 48.3 fL; WBC 8.61 10^3/uL (4.4-10.8)
[2023-10-26] MEDS: Dexamethasone 10 MG/ML VIAL IVP (05:34)
[2023-10-26] MEDS: Ketorolac 15 MG/ML VIAL IVP (05:34)
[2023-10-26] MEDS: Normal Saline 500 ML IV (05:35)
[2023-10-26 05:49] LABS: Albumin 3.4 g/dL (3.4-5.0); Alkaline Phosphatase 110 U/L (46-116); BUN 14 mg/dL (7-18); Bilirubin, Total 0.2 mg/dL (0.2-1.0); Calcium 8.4 mg/dL (8.5-10.1); Chloride 108 mmol/L (98-107); Estimated GFR 92.84 (mL/min/1.73m2); Glucose 124 mg/dL (74-106); Potassium 4.2 mmol/L (3.5-5.1); Sodium 143 mmol/L (136-145); Total Protein 7.1 g/dL (6.4-8.2)
[2023-10-26] MEDS: Omnipaque 350 MG/ML 100 ML BTL IJ (05:57)
[2023-10-26] MEDS: Normal Saline - Diluent 50 ML VIAL IJ (05:57)
--- NOTE | 2023-10-26 05:58 | DI.CT_ITS ---
Exam(s) CT NECK W EXAM: CT NECK W INDICATION: FB sens in R submandibular region, diff swallowing. COMPARISON: CT CT BRAIN NECK CTA from 08/30/2020 TECHNIQUE: FINDINGS: VISUALIZED PARANASAL SINUSES: Mild mucosal thickening in the inferior aspect of the maxillary sinuses . No associated fluid levels. Other paranasal sinuses are clear as are the mastoid air cells bilate rally. NASOPHARYNX: Unremarkable ORODENTAL: Unremarkable. OROPHARYNX: Unremarkable. No masses evident. HYPOPHARYNX: Unremarkable. Valleculae and epiglottis and aryepiglottic folds appear normal. VOCAL CORDS: Unremarkable. No masses evident. Subglottic airway appears unremarkable. THYROID GLAND: Unremarkable. Normal size and no obvious nodules. SALIVARY GLANDS: Unremarkable. No significant findings in the parotid and submandibular glands. LYMPH NODES: There is no prominent adenopathy evident in the neck and supraclavicular regions. OTHER: VISUALIZED LUNG APICES: No significant findings. IMPRESSION: 1. No discernible mass, abnormal collection, nor adenopathy in the neck. 2. No foreign bodies identified. RADIATION DOSE DELIVERED: 446.38mGy.cm Total DLP DATA REPOSITORY: All CT scans at this facility are submitted to the National Radiology Data Registry (NRDR) Dose Index Registry (DIR) with the [employer] (ACR). RADIATION OPTIMIZATION: All CT scans at this facility use at least one of these dose optimization te chniques: automated exposure control; mA and/or kV adjustment per patient size (includes targeted exa ms where dose is matched to clinical indication); or iterative reconstruction.
--- NOTE | 2023-10-26 06:06 | DI.VRAD_ITS ---
PROCEDURE INFORMATION: Exam: CT Neck With Contrast Exam date and time: 10/26/2023 5:44 AM Age: 48 years old Clinical indication: Dysphagia / difficulty swallowing; Patient HX: Fb sens in R submandibular region, diff swallowing TECHNIQUE: Imaging protocol: Computed tomography of the neck with contrast. Radiation optimization: All CT scans at this facility use at least one of these dose optimization techniques: automated exposure control; mA and/or kV adjustment per patient size (includes targeted exams where dose is matched to clinical indication); or iterative reconstruction. Contrast material: [id number]; Contrast volume: 100 ml; Contrast route: INTRAVENOUS (IV); COMPARISON: MR ANGIO NECK WO 08/30/2020 9:33 AM FINDINGS: Salivary glands: Submandibular glands are normal. No sialolithiasis. Pharynx: Unremarkable. No significant tonsillar enlargement. Prevertebral and retropharyngeal spaces: Unremarkable. Larynx: Unremarkable. Epiglottis is normal. Thyroid: Normal. No enlarged or calcified nodules. Trachea: Visualized trachea is unremarkable. Lungs: Unremarkable as visualized. Lymph nodes: Unremarkable. No lymphadenopathy. Bones/joints: Unremarkable. No acute fracture. Soft tissues: Unremarkable. No significant soft tissue swelling. Other findings: No evidence of Carlos's angina. IMPRESSION: 1. No discernible foreign body. No inflammation, hematoma, soft tissue gas, or collection. 2. No acute findings. Dictated and Authenticated by: Dinesh Barron MD. Ordering:TIMO De Leon MD
[2023-10-26 06:27] VITALS: BP 144/90; PULSE 63; RESP 15; TEMP 36.7; O2SAT 97
[2023-10-26 06:28] LABS: AST < 5 U/L (15-37)
[2023-10-26 06:57] LABS: ALT 24 U/L (16-63)
== END 2023-10-26 06:28 | disposition home or self-care (01) ==
PROVIDERS: Emergency Provider Student in an Organized Health Care Education/Training Program
DX: R59.0 Localized enlarged lymph nodes (principal); J02.9 Acute pharyngitis, unspecified; F17.210 Nicotine dependence, cigarettes, uncomplicated
CPT/HCPCS: 70491; 80053; 96360; 99285; 85025; 99284; J1100; J1885; J3490

== ENCOUNTER 2024-03-18 14:40 | Outpatient (CLI) | payer MEDICAID, SELFPAY ==
--- OUTSIDE RECORDS SUMMARY | 2024-03-18 14:58 | XMS_ITS | Encounter Summary ---
[place] [address] Care Team Providers Care Conveyor Console Operator Name Role Phone MaddyTeresa monteiro MESERET Primary Care Provider [phone] Encounter Details Date Type Department Care Team (Late st Contact Info) Description 05/23/2021 Telephone [place] [address] Mercedez Martins APRN [facility] [address] ORTHOPAEDIC [place] [address] Social History Tobacco Use Types Packs/Day Years Used Date Smoking Tobacco: Every Day Cigarettes Smokeless Tobacco: Former Chew Comments:a pack a week Alcohol Use Standard Drinks/Week Comments No 0 (1 standard drink = 0.6 oz pur e alcohol) Sex and Gender Information Value Date Recorded Sex Assigned at Not on file Gender Identity Not on file Sexual Orientation Not on file documented as of this encounter Miscellaneous Notes * Telephone Encounter - Josselyn Harmon - 05/23/2021 4:21 PM EST xr documented in this encounter Plan of Treatment Not on file documented as of this encounter Visit Diagnoses Diagnosis Instability of right knee joint Other joint derangement, not elsewhere classified, lower leg Status post total knee replacement, right documented in this encounter Care Teams Conveyor Console Operator Relationship Specialty Start Date End Date Teresa Field, TOE STRIPPER [address] [facility] [place] [address] PCP - General Family Medicine 05/07/21 documented as of this encounter
--- OUTSIDE RECORDS SUMMARY | 2024-03-18 14:58 | XMS_ITS | Encounter Summary ---
[place] [address] Care Team Providers Care Slab Miller Operator Name Role Phone Unknown Primary Care Provider Unavailabl e Reason for Visit * Reason Comments Follow-up R knee pain and swel ling Encounter Details Date Type Department Care Team (Late st Contact Info) Description 01/19/2019 8:50 AM EDT Office [place] [address] Instability of right knee joint Social History Tobacco Use Types Packs/Day Years [...] on file documented as of this encounter Last Filed Vital Signs Vital Sign Reading Time Taken Comments Blood Pressure 115/71 01/19/2019 8:35 AM EDT Pulse 59 01/19/2019 8:35 AM EDT Temperature - - Respiratory Rate - - Oxygen Saturation - - Inhaled Oxygen Concentration - - Weight 83.9 kg (185 lb) 01/19/2019 8:35 AM EDT p t reported Height 180.3 cm (5' 11) 01/19/2019 8:35 AM EDT pt reported Body Mass Index 25.8 01/19/2019 8:35 AM EDT documented in this encounter Progress Notes * Jenny Perez PA - 01/19/2019 8:50 AM EDT Arthroplasty/Orthopaedic History: 1. R TKA 02/22/16 (Bernadette) 2. R TKA revision, instability (Bernadette) HPI: Yvan Maddox is a very pleasant 43 y.o. year-old male and is now 6 months post right total knee revision for instability. He continues to have pain globally in the right knee which is unchangedsince surgery. He complains of a left knee pain from overuse. 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 No fevers, chills, nausea, vomiting, or symptoms of infection. Yvan has been ambulating with no assistive device. He is not taking narcotic pain medicine. ROS: Denies: fever, chills, night sweats, nausea, or vomiting BP 115/71 Pulse 59 Ht 180.3 cm (5' 11) Comment: pt reported Wt 83.9 kg (185 lb) Comment: pt reported BMI 25.80 kg/m?? Physical Exam: Well-appearing male in no acute distress. Alert and Oriented x 3 and answers all questions appropriately. The incision is well healed, with no signs of infection. Post Op Right Knee Exam: Knee ROM: Extension:0 Flexion: 120 Alignment: 0-4 degrees Neutral Stability: A/P Translation <5mm Varus (lateral stability) <5mm Valgus (medial stability) <5mm Extension La degrees or less Patella Tracking: Normal Pulses Palpable: Left PT:Yes Left DP:Yes Motor/Sensory: Distal Motor: Normal Distal Sensory: Normal Quadriceps Strength:3 X-RAYS: Multiple radiographic views were obtained at my request and reviewed with the patient. X-rays show a well-placed prosthesis with no evidence of fracture, subsidence, loosening, or periprosthetic complication. Post Op Right Knee Exam: Post Op Left Knee Exam: Knee ROM: Extension:0 Flexion: 120 Alignment: 0-4 degrees Neutral Stability: A/P Translation <5mm Varus (lateral stability) <5mm Valgus (medial stability) <5mm Extension La degrees or less Patella Tracking: Normal Pulses Palpable: Left PT:Yes Left DP:Yes Motor/Sensory: Distal Motor: Normal Distal Sensory: Normal Quadriceps Strength:3 Questionnaire Responses: [facility] Visit 01/19/2019 PROMIS-10 General Health Good PROMIS-10 Quality of Life Very Good PROMIS-10 Physical Health Good PROMIS-10 Mental Health Good PROMIS-10 Social Activity Excellent PROMIS-10 Everyday Activities Mostly PROMIS-10 Pain 6 PROMIS-10 Fatigue Moderate PROMIS-10 Social Roles Very Good PROMIS-10 Anxious or Depressed Rarely PROMIS PHYSICAL HEALTH SCORE 42.3 PROMIS MENTAL HEALTH SCORE 53.3 KOOS JR Scores 57.14 Problems with surgical incision/wound after surgery No Gone to ER since knee surgery No Where was ER located? - Date of ER visit - Reason for ER visit - Admitted to hospital since recent ortho surgery No Hospital - Date of admission - Discharge date - Reason you went to hospital - Additional surgery on same body part Yes [facility] Surgeon Dr. Fleming Date of surgery 06/06/2017 Reason for surgery Fix knee cap plastic TKA Grade 4 Pain in other KNEE Severe Back pain at this moment Moderate Satisfaction with Treatment Satisfied Choose Same Treatment Again Definitely yes Orthopeadics [facility] Response 01/19/2019 KOOS JR Scores 57.14 Spine [facility] Response 01/19/2019 KOOS JR Scores 57.14 ASSESSMENT/PLAN: Mr. Maddox is a 43 y.o. year old male status post right total knee replacement withcontinued, unchanged global knee pain in his right as well as left sided knee pain. His left sided knee pain has not changed since his polyswap. He deneis any symptoms of infection. He does have weakness of the quads which could be contributing to both the right and left knee pain. We discussed the pain that he has been experiencing in his left knee. We have AP views of the knee which show mild bilateral joint space narrowing. HIs ROM is good and he shows no sign of laxity in any one direction. He is however, weak regarding quads. We discussed the elective management of osteoarthritis treatment. We discussed the arthritis ladder, attempting conservative therapy first with [id number] anti-inflammatories such as ibuprofen or naproxen along with acetaminophen if they can be tolerated. We also discussed attempting formal physical therapy, as that can help keep core and quads musculature strong, in conjunction with focusing on range of motion. We also discussed using walking aids, continue and regular exercise along with maintaining an appropriate weight. The patient is receptive to this. We also discussed corticosteroid injection. Risks and benefits explained including but not limited to steroid flare, increase in blood glucose, infection, continued pain, bleed ing, damage to nerves and vessels and can safely be given every 3-4 months. We reviewed the indications of total knee arthroplasty and th elective management of this. We discussed the procedure, recovery, and expectations post- operatively. We reviewed risks and benefits, which include but are not limited to infection, bleeding, damage to nerves and vessels, hardware failure, fracture, dislocation, blood clot, heart attack, stroke, adverse reaction to anesthesia, and continued pain. Patient demonstrates and understanding of the above. Ultimately, he elected to try conservative treatment with NSAIDs as well as work on quad strengthening. I have given him exercises to perform at home. We will have him FU at one year post surgical date with repeat images of bilateral knees for evaluation. Patient may return to normal activities as his pain and function allow. We discussed the appropriate precautions surrounding dental prophylaxis; according to the AAOS Appropriate Use Criteria we do not recommend antibiotic use prior to dental procedures for Yvan. Recommended antibiotic: N/A If Yvan has any changes in health status we recommend he contact our office prior to dental procedures for updated recommendations We also discussed maintaining good foot care and giving prompt attention to any source of infectionthroughout the body including foot ulcers and urinary tract infections. All questions were answered. Signed: TERESA Mills 01/19/2019 documented in this encounter Plan of Treatment Not on file documented as of this encounter Visit Diagnoses Diagnosis Instability of right knee joint Other joint derangement, not elsewhere classified, lower leg documented in this encounter Care Teams Slab Miller Operator Relationship Specialty Start Date End Date Unknown None PCP - General 12/17/18 03/06/20 documented as of this encounter
--- OUTSIDE RECORDS SUMMARY | 2024-03-18 14:58 | XMS_ITS | Encounter Summary ---
[place] [address] Care Team Providers Care Clinical Nursing Intern Name Role Phone AnjumLeticia MESERET Primary Care Provider Reason for Visit * Reason Onset Date Comments Questions 09/23/2017 Encounter Details Date Type Department Care Team (Late st Contact Info) Description 09/23/2017 Tele[place] [address] Dane Fleming MD [facility] [address] [place] [address] Questions Social History Tobacco Use Types Packs/Day Years [...] encounter Miscellaneous Notes * Telephone Encounter - Riri George RN - 09/24/2017 9:19 AM EDT Left message on patient's identified voicemail regarding Dr. Fleming's message * Telephone Encounter - Ying Goodwinmaida Polanco - 09/23/2017 2:52 PM EDT Christina called for Yvan he wanted to apologize for missing his Appt and thought it was this afternoon. At this time he is doing well. He wanted to know if you could call him to discuss what you wouldof in his visit he had with you today on 09.23.17 with him over the phone. I asked to reschedule and at this time Christina stated he doesn't want to reschedule. You can call Yvan at [phone] to discuss further. documented in this encounter Plan of Treatment Not on file documented as of this encounter Visit Diagnoses Not on filedocumented in this encounter Care Teams Clinical Nursing Intern Relationship Specialty Start Date End Date Leticia Valero APRN PCP - General Family Medicine 03/18/17 12/16/18 documented as of this encounter
--- OUTSIDE RECORDS SUMMARY | 2024-03-18 14:58 | XMS_ITS | Encounter Summary ---
[place] [address] Care Team Providers Care Rn Urgent Care Name Role Phone Unknown Primary Care Provider Unavailabl e Reason for Visit * Reason Onset Date Comments Other 08/27/2019 Encounter Details Date Type Department Care Team (Late st Contact Info) Description 08/27/2019 [place] [address] Eleuterio Raymond Other Social History Tobacco Use Types Packs/Day Years [...] encounter Miscellaneous Notes * Telephone Encounter - Eleuterio Raymond - 08/27/2019 4:27 PM EDT Triage Note Subjective: R knee pain Pierre questions/Assessment: Mr. Maddox is s/p R TKA DOS: 02/22/16 and R TKA REV poly swap DOS: 06/16/18 - Coe. Vasquez, to Mr. Maddox, called today to report pain of Mr. mckeon right knee. She reports his pain is approximately 7/10 pain and this is constant. She further reports that his knee has been giving out. She denies redness, however confirms that he has swelling in the knee. She reports the swelling has been present ever since his surgery in 2018 after which the swelling never truly subsided. Plan: Routed to Jenny Perez PA-C for review and instruction. documented in this encounter Plan of Treatment Not on file documented as of this encounter Visit Diagnoses Not on filedocumented in this encounter Care Teams Rn Urgent Care Relationship Specialty Start Date End Date Unknown None PCP - General 12/17/18 03/06/20 documented as of this encounter
--- OUTSIDE RECORDS SUMMARY | 2024-03-18 14:58 | XMS_ITS | Encounter Summary ---
[place] [address] Care Team Providers Care Child Psychometrist Name Role Phone Unknown Primary Care Provider Unavailabl e Reason for Visit * Reason Onset Date Comments Appointment 09/06/2019 Encounter Details Date Type Department Care Team (Late st Contact Info) Description 09/06/2019 [place] [address] Jenny Perez PA [facility] [place] [address] Appointment Social History Tobacco Use Types Packs/Day Years [...] encounter Miscellaneous Notes * Telephone Encounter - Treasure Levy - 09/10/2019 4:52 PM EDT Patient called requesting to have Labs & XR completed @ [facility]. Once images and labs have been completed the patient would like to follow up if this is possible. * Telephone Encounter - Amberly Park - 09/06/2019 11:10 AM EDT Spoke with patient's spouse and she will call back to make an appointment this week. Patient needs a lab, x-ray and appointment with Cherelle Perez this week for LAB/XR, R TKA REV DOS 06/16/17 -increasepain documented in this encounter Plan of Treatment Not on file documented as of this encounter Visit Diagnoses Not on filedocumented in this encounter Care Teams Child Psychometrist Relationship Specialty Start Date End Date Unknown None PCP - General 12/17/18 03/06/20 documented as of this encounter
--- OUTSIDE RECORDS SUMMARY | 2024-03-18 14:58 | XMS_ITS | Encounter Summary ---
Author Organization Former[facility] [place] [address] Care Team Providers Care Manager Placement Name Role Phone Leticia Valero APRN Primary Care Provider Encounter Details Date Type Department Care Team (Latest Contact Info) Description 07/21/2017 1:43 PM EST - 07/21/2017 11:59 PM [facility] Hospital Encounter XRay at [address] [place] [address] Mercedez Martins APRN [facility] [place] [address] Status post right knee replacement Discharge Disposition: Home Social History Tobacco Use Types Packs/Day Years [...] on file documented as of this encounter Medications at Time of Discharge Medication Sig Dispensed Refills Start Date End Date diphenhydrAMINE (BENADRYL) 25 mg Capsule Take 25 mg by mouth every 6 hours as needed for Itching. 03/07/2020 documented as of this encounter Plan of Treatment Not on file documented as of this encounter Procedures Procedure Name Priority Date/Time Associated Diagnosis Comments XR KNEE STANDING ALIGNMENT AP LAT [place] RIGHT Routine 07/21/2017 2:01 PM EST Status post right knee replacement documented in this encounter Results * XR Knee Standing Alignment AP Lat [place] Right (07/21/2017 2:01 PM EST) Anatomical Region Laterality Modality Right Digital Radiogra phy Impressions 07/21/2017 3:12 PM EST New prepatellar soft tissue swelling and joint effusion on the RIGHT Narrative 07/21/2017 3:12 PM EST EXAMINATION: XR KNEE STANDING ALIGNMENT AP LAT [place] SKY[place] RIGHT CLINICAL HISTORY: right knee TKA ? change from previous x-ray DOS: ?? 02/22/2016 TECHNIQUE: Separate images of the pelvis, knees and feet were acquired in the AP projection with the patient standing. These images were stitched together to form a composite image of the pelvis and legs allowing for evaluation of lower extremity alignment in the weight bearing position. 4 views RIGHT knee COMPARISON: 03/18/2017 FINDINGS: Standing alignment: The mechanical axis the RIGHT lower extremity is medially deviated 1.8 cm, that to the LEFT is medially deviated 2.6 cm. There is approximately similar to prior. RIGHT knee: The RIGHT total knee arthroscopy is in appropriate position alignment since patient's prior study with no evidence complication. The minimal lucency seen under the medial aspect of the tibial flange is no longer seen, other this may reflect differences in positioning. Mild lateral subluxation of the patella on the RIGHT. 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 There is however new prepatellar swelling on the RIGHT with a small joint effusion Procedure Note Lucy Jj MD - 07/21/2017 EXAMINATION: XR KNEE STANDING ALIGNMENT AP LAT [place] RIGHT CLINICAL HISTORY: right knee TKA ? change from previous x-ray DOS:02/22/2016 TECHNIQUE: Separate images of the pelvis, knees and feet were acquired inthe AP projection with the patient standing. These images were stitched togetherto form a composite image of the pelvis and legs allowing for evaluation oflower extremity alignment in the weight bearing position. 4 views RIGHT knee COMPARISON: 03/18/2017 FINDINGS: Standing alignment: The mechanical axis the RIGHT lower extremity ismedially deviated 1.8 cm, that to the LEFT is medially deviated 2.6 cm. There is approximately similar to prior. RIGHT knee: The RIGHT total knee arthroscopy is in appropriate position alignment since patient's prior study with no evidence complication. Theminimal lucency seen under the medial aspect of the tibial flange is no longerseen, other this may reflect differences in positioning. Mild lateralsubluxation of the patella on the RIGHT. 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 There is howevernew prepatellar swelling on the RIGHT with a small joint effusion IMPRESSION New prepatellar soft tissue swelling and joint effusion on the RIGHT Mercedez Martins APRN IMG DX ORDERABLES documented in this encounter Visit Diagnoses Diagnosis Status post right knee replacement documented in this encounter Care Teams Manager Placement Relationship Specialty Start Date End Date Leticia Valero APRN PCP - General Family Medicine 03/18/17 12/16/18 documented as of this encounter
--- OUTSIDE RECORDS SUMMARY | 2024-03-18 14:58 | XMS_ITS | Encounter Summary ---
[place] [address] Care Team Providers Care Van Loader Name Role Phone Unknown Primary Care Provider Unavailabl e Encounter Details Date Type Department Care Team (Late st Contact Info) Description 09/03/2019 Orders [place] [address] Jenny Perez PA [facility] [place] [address] Instability of right knee joint; Status post total knee replacement, right with Dr. Fleming (02/22/16) Social History Tobacco Use Types Packs/Day Years [...] on file documented as of this encounter Plan of Treatment Not on file documented as of this encounter Visit Diagnoses Diagnosis Instability of right knee joint Other joint derangement, not elsewhere classified, lower leg Status post total knee replacement, right with Dr. Fleming (02/22/16) documented in this encounter Care Teams Van Loader Relationship Specialty Start Date End Date Unknown None PCP - General 12/17/18 03/06/20 documented as of this encounter
--- OUTSIDE RECORDS SUMMARY | 2024-03-18 14:58 | XMS_ITS | Clinical Summary ---
[place] [address] Care Team Providers Care Liquor Department Manager Name Role Phone Teresa Field APRN Primary Care Provider [phone] Allergies Active Allergy Reactions Criticality Noted Date Comments Grass Pollen-[place], Standard Hives Medium 11/12 Medications Medication Sig Dispensed Refills Start Date End Date Status omeprazole (PriLOSEC) 40 mg Capsule, Delayed Release(E.C.) Take 40 mg by mouth daily. Active Active Problems Problem Noted Date Diagnosed Date s/p R TKA revision for instability, polyswap /02/03 (Bernadette) 05/20/2017 Status post total knee repla cement, right with Dr. Fleming (02/22/16) 02/22/2016 History of nasal surgery 11/13/2015 Resolved Problems Problem Noted Date Diagnosed Date Resolved Date Right knee pain 02/25/2016 03/26/2016 Knee pain 02/06/2016 03/26/2016 Post-traumatic osteoarthritis of right knee 11/13/2015 03/26/2016 Family History Medical History Relation Comments Diabetes Father Relation Status Comments Father Social History Tobacco Use Types Packs/Day Years Used Date Smoking Tobacco: Every Day Cigarettes Smokeless Tobacco: Former Chew Comments:a pack a week Alcohol Use Standard Drinks/Week Comments No 0 (1 standard drink = 0.6 oz pur e alcohol) Sex and Gender Information Value Date Recorded Sex Assigned at Not on file Gender Identity Not on file Sexual Orientation Not on file Last Filed Vital Signs Vital Sign Reading Time Taken Comments Blood Pressure 133/84 03/07/2020 4:01 PM EDT Pulse 71 03/07/2020 4:01 PM EDT Temperature 37 ??C (98.6 ??F) 06/17/2017 7:49 AM EST Respiratory Rate 12 06/17/2017 7:49 AM EST Oxygen Saturation 97% 06/17/2017 8:30 AM EST Inhaled Oxygen Concentration - - Weight 83.9 kg (185 lb) 03/07/2020 4:01 PM EDT Height 180.3 cm (5' 11) 03/07/2020 4:01 PM EDT Body Mass Index 25.8 03/07/2020 4:01 PM EDT Plan of Treatment Health Maintenance Due Date Last Done Comments CT Colonography 1975 Colonoscopy 1975 Colorectal Cancer Screening 1975 FIT DNA 1975 FIT 1975 Sigmoidoscopy (10 year) with FIT yearly 1975 Sigmoidoscopy 1975 HIV screen 1993 Hepatitis C Screening 1993 Lipid Screening 1993 Hepatitis B vaccine (0-59 yr s) (1) 1994 Tetanus/Diphtheria/Pertussis Vaccines (1 - Tdap) 1994 Covid-19 Vaccine (1 - 2022-2 4 season) 2024 Influenza (Flu) vaccine (1 o f 1 - Influenza standard series) 01/18/2024 Diabetes Screening (HgbA1C o r Glucose) Discontinued 06/17/2017, 05/29/2017, 02/23/2016, Additional history exists Medical Devices Implanted Type Area Instant Powder Supervisor Device Identifier Shelf Expiration Date Model / Serial / Lot Cement,Bne,Sma rtset,Ghv,40g ([id number]) - [id number] Implanted:Qty: 1 on 02/22/2016 by Dane Fleming MD at [facility] IMPLANTS Right: Knee DO NOT USE Depuy Office Correspondent - 3527 09/15/2018 0 / / [id number] TrayGuillaume,Fb ,Tib,Bse,Sz7 ([id number]) (Autoreq) - [id number] Implanted:Qty: 1 on 02/22/2016 by Dane Fleming MD at [facility] IMPLANTS Right: Knee DO NOT USE Depuy Office Correspondent - 3527 09/15/2025 7 / / [id number] Pratt,Guillaume,P s,Fem,Sz7,Rt ([id number]) (Autoreq) - [id number] Implanted:Qty: 1 on 02/22/2016 by Dane Fleming MD at [facility] IMPLANTS Right: Knee DO NOT USE Depuy Office Correspondent - 3527 08/16/2025 1504-03-07 7 / / [id number] Guillaume Brunson M dl,Dome,41mm ([id number]) (Autoreq) - [id number] Implanted:Qty: 1 on 02/22/2016 by Dane Fleming MD at [facility] IMPLANTS Right: Knee DO NOT USE Depuy Office Correspondent - 3527 10/16/2020 1 / / [id number] InserGuillaume P s,Fb,Sz7,5mm ([id number]) (Autoreq) - [id number] Implanted:Qty: 1 on 02/22/2016 by Dane Fleming MD at [facility] IMPLANTS Right: Knee DO NOT USE Depuy Office Correspondent - 3527 08/16/2020 5 / / [id number] Inser,Jaymie Galaviz s,Fb,Sz7,8mm ([id number]) (Autoreq) - [id number] Implanted:Qty: 1 on 06/16/2017 by Dane Fleming MD at [facility] IMPLANTS DO NOT USE Depuy Office Correspondent - 3527 01/16/2019 8 / / [id number] Procedures Procedure Name Priority Date/Time Associated Diagnosis Comments BASIC METABOLIC PANEL Routine 06/17/2017 4:19 AM EST from Last 3 Months or Most Recently Relevant to Health Maintenance Results * Basic Metabolic Panel (non-fasting) (06/17/2017 4:19 AM EST) Glucose 103 65 - 199 mg/dL [facility] Comment:Diabetes: >=200 mg/d L plus symptoms Blood Urea Nitrogen 10 10 - 20 mg/dL [facility] Creatinine 0.85 0.80 - 1.50 mg/dL [facility] Sodium 140 135 - 145 mmol/L [facility] Potassium 4.2 3.5 - 5.0 mmol/L [facility] Comment: Please note: ??Patients with WBC >100,000 may have falsely elevated Potassium levels. ??For accurate Potassium quantification in these patients send serum separator tube (gold top) for subsequent determinations. ??Contact the Clinical Chemistry Laboratory if there are any questions. Chloride 105 98 - 107 mmol/L [facility] Carbon Dioxide 22 22 - 31 mmol/L [facility] Anion Gap 13 5 - 15 mmol/L [facility] Calcium 8.7 8.5 - 10.5 mg/dL [facility] Est Glomerular Filtration Rate >60 >=60 [facility] Comment: The reported eGFR should be multiplied by 1.2 for patients. The MDRD is not an appropriate measure of renal function for patients with body mass extremes or in patients with acute kidney failure. http://[employer]/DHnkdep http://Joystick[employer]/DHMCnkf Blood specimen (specimen) 06/17/2017 4:19 AM EST 06/17/2017 4:35 AM EST Narrative Resulting Agency Comment Spec In Lab Dane Fleming MD CHEMISTRY ORDERABLES [facility] [place] [address] from Last 3 Months or Most Recently Relevant to Health Maintenance Advance Directives Documents on File Type Date Recorded Patient Organic Preparation Analyst Expl anation Personal Organic Preparation Analyst 07/22/2017 4:37 PM ariana thu Advance Directives and Livin g Will 02/23/2016 3:06 PM 01/12/16 * Full Code (Latest Code Status on File) Date Activated Date Inactivated Comments 06/16/2017 1:00 PM 06/17/2017 2:38 PM Question Answer Comments Does patient have capacity to make decision: Yes * Full Code Date Activated Date Inactivated Comments 02/25/2016 2:19 AM 02/25/2016 7:01 PM Question Answer Comments Does patient have capacity to make decision: Yes * Full Code Date Activated Date Inactivated Comments 02/22/2016 10:18 AM 02/23/2016 2:56 PM Question Answer Comments Does patient have capacity to make decision: Yes * Full Code Date Activated Date Inactivated Comments 02/22/2016 6:41 AM 02/22/2016 10:18 AM Question Answer Comments Does patient have capacity to make decision: Yes Healthcare Agents on File Name Relationship Healthcare Agent Relationship Communication Ariana Wong' Tan Spouse Health Care Agent Cookiejosue Handleyanthony Mother First Alternate Health Care Agent Care Teams Liquor Department Manager Relationship Specialty Start Date End Date Teresa Field APRN [address] [facility] [place] [address] PCP - General Family Medicine 05/07/21
--- OUTSIDE RECORDS SUMMARY | 2024-03-18 14:58 | XMS_ITS | Encounter Summary ---
Author Organization [facility] [place] [address] Care Team Providers Care Central Supply Aide Name Role Phone None Primary Care Provider Unavailabl e Encounter Details Date Type Department Care Team (Latest Contact Info) Description 03/07/2020 2:49 PM EDT - 03/07/2020 11:59 PM EDT Hospital Encounter XRay at [address] [place] [address] Dane Fleming MD [facility] [place] [address] History of total knee replacement, right Discharge Disposition: Home Social History Tobacco Use [...] Sig Dispensed Refills Start Date End Date omeprazole (PriLOSEC) 40 mg Capsule, Delayed Release(E.C.) Take 40 mg by mouth daily. documented as of this encounter Plan of Treatment Not on file documented as of this encounter Procedures Procedure Name Priority Date/Time Associated Diagnosis Comments XR KNEE AP & LAT RIGHT Routine 03/07/2020 3:09 PM EDT History of total knee replacement, right documented in this encounter Results * XR Knee 1-2 Views Right (Generic) (03/07/2020 3:09 PM EDT) Anatomical Region Laterality Modality Knee Right Digital Radiogra phy Impressions 03/07/2020 3:16 PM EDT Status post total right ??knee arthroplasty without evidence of interval complication. Thank you for letting us participate in the care of this patient. For questions regarding this report, please contact the number below. ? Electronically signed by: Myles Tang MD, [facility] ([phone]), at 03/07/2020 3:16 PM Narrative 03/07/2020 3:16 PM EDT EXAMINATION: XR KNEE 1-2 VIEWS RIGHT (GENERIC) CLINICAL HISTORY: History of total knee replacement, right TECHNIQUE: 2 views RIGHT knee COMPARISON: Right knee radiographs 01/19/2019 FINDINGS: The patient is status post total right knee arthroplasty and patellar resurfacing. No periprosthetic fracture. No periprosthetic lucency to indicate loosening or infection. No large suprapatellar joint effusion. The resurfaced patella is well situated in its trochlear groove. Procedure Note Myles Tang MD - 03/07/2020 EXAMINATION: XR KNEE 1-2 VIEWS RIGHT (GENERIC) CLINICAL HISTORY: History of total knee replacement, right TECHNIQUE: 2 views RIGHT knee COMPARISON: Right knee radiographs 01/19/2019 FINDINGS: The patient is status post total right knee arthroplasty and patellar resurfacing. No periprosthetic fracture. No periprosthetic lucency to indicateloosening or infection. No large suprapatellar joint effusion. The resurfaced patellais well situated in its trochlear groove. IMPRESSION Status post total right knee arthroplasty without evidence of interval complication. Thank you for letting us participate in the care of this patient. Forquestions regarding this report, please contact the number below. Dane Fleming MD IMG DX ORDERABLES documented in this encounter Visit Diagnoses Diagnosis History of total knee replacement, right documented in this encounter Care Teams Central Supply Aide Relationship Specialty Start Date End Date None None PCP - General 03/07/20 05/06/21 documented as of this encounter
--- OUTSIDE RECORDS SUMMARY | 2024-03-18 14:58 | XMS_ITS | Encounter Summary ---
[place] [address] Care Team Providers Care Wire Fence Erector Name Role Phone Unknown Primary Care Provider Unavailabl e Encounter Details Date Type Department Care Team (Late st Contact Info) Description 02/08/2020 Tele[place] [address] Flory Painter RN Social History Tobacco Use Types Packs/Day Years [...] encounter Miscellaneous Notes * Telephone Encounter - Flory Painter RN - 02/08/2020 4:22 PM EDT Patients , Christina, calls in today for her informing the clinic that he hit his knee on the car door about 2 weeks ago. He states that he felt it popped when this happened. He has been experiencing numbness at the knee which then makes his whole leg go numb. He has to sit to let the sensation come back. He has also been experiencing it being hot to the touch. He currently denies fever,chills, redness. It was explained that if he does experience any of these symptoms, he should report to the Emergency Department for evaluation of possible infection. The call was transferred to the secretaries for scheduling with Cherelle Perez on 02/[address] Fleming. documented in this encounter Plan of Treatment Not on file documented as of this encounter Visit Diagnoses Not on filedocumented in this encounter Care Teams Wire Fence Erector Relationship Specialty Start Date End Date Unknown None PCP - General 12/17/18 03/06/20 documented as of this encounter
--- OUTSIDE RECORDS SUMMARY | 2024-03-18 14:58 | XMS_ITS | Encounter Summary ---
Author Organization [facility] [place] [address] Care Team Providers Care Internet Project Manager Name Role Phone Unknown Primary Care Provider Unavailabl e Encounter Details Date Type Department Care Team (Latest Contact Info) Description 01/19/2019 7:45 AM EDT - 01/19/2019 11:59 PM EDT Hospital Encounter XRay at [address] [place] [address] Dane Fleming MD [facility] [place] [address] Right knee pain, unspecified chronicity Discharge Disposition: Home Social History Tobacco Use [...] XR KNEE AP & LAT RIGHT Routine 01/19/2019 8:26 AM EDT Right knee pain, unspecified chronicity documented in this encounter Results * XR Knee 1-2 Views Right (Generic) (01/19/2019 8:26 AM EDT) Anatomical Region Laterality Modality Knee Right Digital Radiogra phy Impressions 01/19/2019 10:14 AM EDT 1. ??Unchanged right total knee arthroplasty without interval radiographic complications. 2. ??Stable AP appearance of left knee. Thank you for letting us participate in the care of this patient. For questions regarding this report, please contact the number below. ? Narrative 01/19/2019 10:14 AM EDT EXAMINATION: XR KNEE 1-2 VIEWS RIGHT (GENERIC) CLINICAL HISTORY: right knee pain TECHNIQUE: 2 views RIGHT knee: AP standing radiographs of the bilateral knees and lateral radiographs of the right knee. COMPARISON: Radiographs of the bilateral knees 07/21/2017. FINDINGS: Right knee: Unchanged alignment of right total knee arthroplasty. No periprosthetic fracture or interval periprosthetic radiolucencies identified. No large knee joint effusion. Left knee: Unchanged AP appearance, with bipartite patella again noted. Procedure Note Neli Ariza MD - 01/19/2019 EXAMINATION: XR KNEE 1-2 VIEWS RIGHT (GENERIC) CLINICAL HISTORY: right knee pain TECHNIQUE: 2 views RIGHT knee: AP standing radiographs of the bilateral knees andlateral radiographs of the right knee. COMPARISON: Radiographs of the bilateral knees 07/21/2017. FINDINGS: Right knee: Unchanged alignment of right total knee arthroplasty. No periprosthetic fracture or interval periprosthetic radiolucenciesidentified. No large knee joint effusion. Left knee: Unchanged AP appearance, with bipartite patella again noted. IMPRESSION 1. Unchanged right total knee arthroplasty without intervalradiographic complications. 2. Stable AP appearance of left knee. Thank you for letting us participate in the care of this patient. Forquestions regarding this report, please contact the number below. Dane Fleming MD IMG DX ORDERABLES documented in this encounter Visit Diagnoses Diagnosis Right knee pain, unspecified chronicity documented in this encounter Care Teams Internet Project Manager Relationship Specialty Start Date End Date Unknown None PCP - General 12/17/18 03/06/20 documented as of this encounter
--- OUTSIDE RECORDS SUMMARY | 2024-03-18 14:58 | XMS_ITS | Encounter Summary ---
[facility] [place] [address] Care Team Providers Care Noc Analyst Name Role Phone None Primary Care Provider Unavailabl e Reason for Visit * Reason Comments Follow Up Surgery right TKA revision D OS 06/16/17 (Bernadette) painful, and now leg keeps going numb Encounter Details Date Type Department Care Team (Late st Contact Info) Description 03/07/2020 4:00 PM EDT Office [place] [address] Dane Fleming MD [facility] [place] [address] Jenny Perez [place] [facility] [place] [address] Instability of right knee joint Social History [...] Pulse 71 03/07/2020 4:01 PM EDT Temperature - - Respiratory Rate - - Oxygen Saturation - - Inhaled Oxygen Concentration - - Weight 83.9 kg (185 lb) 03/07/2020 4:01 PM EDT Height 180.3 cm (5' 11) 03/07/2020 4:01 PM EDT Body Mass Index 25.8 03/07/2020 4:01 PM EDT documented in this encounter Progress Notes * Jenny Perez PA - 03/07/2020 4:00 PM EDT Arthroplasty/Orthopaedic History: 1. R TKA 02/22/16 (Bernadette) 2. R TKA revision, instability (Bernadette) HPI: Yvan Maddox is a very pleasant 45 y.o. year-old male and is now one year post right total knee revision for instability. Three weeks ago he hit his knee on the door of the car, and felt the metal move. 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 Pain is medial tibial plateau primarily however global as well. He struggles to put his shoes and socks on. He does have restless leg syndrome. No fevers, chills, nausea, vomiting, or symptoms of infection. Yvan has been ambulating with no assistive device. He has been taking tylenol, ibuprofen, as well as left over oxycodone from his prescription from Dr. Fleming 07/2017. The oxycodone is the only thing that helped. ROS: Denies: fever, chills, night sweats, nausea, or vomiting BP 133/84 (BP Location (NBP): Left arm, Patient Position: Sitting, BP Cuff Sizes: Adult (25-34 cm)) Pulse 71 Ht 180.3 cm (5' 11) Wt 83.9 kg (185 lb) BMI 25.80 kg/m?? Physical Exam: Well-appearing male [...] of fracture, subsidence, loosening, or periprosthetic complication. Questionnaire Responses: [facility] Surgical Postop Visit 03/07/2020 PROMIS-10 General Health Good PROMIS-10 Quality of Life Good PROMIS-10 Physical Health Fair PROMIS-10 Mental Health Good PROMIS-10 Social Activity Good PROMIS-10 Everyday Activities A little PROMIS-10 Pain 8 PROMIS-10 Fatigue Severe PROMIS-10 Social Roles Very Good PROMIS-10 Anxious or Depressed Often PROMIS PHYSICAL HEALTH SCORE 29.6 PROMIS MENTAL HEALTH SCORE 41.1 KOOS JR Scores 54.84 Problems with surgical incision/wound after surgery Yes Problems with incision Pain, Redness, Swelling Prescribed antibiotics No Caregiver after your surgical incision problem Surgeon who did your surgery Gone to ER since knee surgery Yes Where was [place] [facility] [place] [facility] Date of ER visit 03/17/2018 Reason for ER visit Swelling, pain, and hotness Admitted to hospital since recent ortho surgery Yes [facility] revision Date of admission 06/06/2018 Discharge date 06/06/2018 Reason you went to hospital Right knee revision Additional surgery on same body part Yes [facility] Surgeon Date of surgery 06/06/2017 Reason for surgery Revision TKA Grade 2 Pain in other KNEE Moderate Back pain at this moment Very mild Satisfaction with Treatment Dissatisfied Choose Same Treatment Again Definitely no Orthopeadics [facility] Response 03/07/2020 KOOS JR Scores 54.84 Spine [facility] Response 03/07/2020 KOOS JR Scores 54.84 ASSESSMENT/PLAN: Mr. Maddox is a 45 y.o. year old male status post right total knee replacement . We had a long discussion regarding the nature of his pain. We reviewed the XR images which show no fracture or dislocation, no evidence of loose hardware. Clinically Yvan has great knee ROM, though has weak quads. I would recommend that he work hard on increasing his quad strength either with formal physical therapy or with in home PT. He elected to work on this at home. We did discuss that it is unreasonable to expect to have comfortable knees for a 12+ hour workday. We will have him FU at one [...] All questions were answered. Signed: TERESA Mills 03/07/2020 documented in this encounter Plan of Treatment Not on file documented as of this encounter Visit Diagnoses Diagnosis Instability of right knee joint Other joint derangement, not elsewhere classified, lower leg documented in this encounter Care Teams Noc Analyst Relationship Specialty Start Date End Date None None PCP - General 03/07/20 05/06/21 documented as of this encounter
--- OUTSIDE RECORDS SUMMARY | 2024-03-18 14:59 | XMS_ITS | Encounter Summary ---
Author Organization [facility] [place] [address] Care Team Providers Care Tin Container Straightener Name Role Phone AnjumAnthonyLeticiamona Coyle APRN Primary Care Provider Encounter Details Date Type Department Care Team (Latest Contact Info) Description 03/18/2017 8:40 AM EDT - 03/18/2017 10:06 AM EDT Hospital Encounter XRay at [address] [place] [address] Dane Fleming MD [facility] [place] [address] Presence of artificial knee joint, right Discharge Disposition: Home Social History Tobacco Use Types Packs/Day Years Used Date Smoking Tobacco: Every Day Cigarettes Smokeless Tobacco: Former Chew Comments:a pack per 3 days Alcohol Use Standard Drinks/Week Comments No 0 (1 standard drink = 0.6 oz pur e alcohol) Sex and Gender Information Value Date Recorded Sex Assigned at Not on file Gender Identity Not on file Sexual Orientation Not on file documented as of this encounter Medications at Time of Discharge Medication Sig Dispensed Refills Start Date End Date acetaminophen (TYLENOL) 500 mg Tablet Take 2 tablets by mouth every 8 hours. Around the clock until 03/03/16, and then as needed. DO NOT EXCEED 3000 mg tylenol in a 24 hour period. 02/23/2016 06/17/2017 diphenhydrAMINE (BENADRYL) 25 mg Capsule Take 25 mg by mouth every 6 hours as needed for Itching. 03/07/2020 documented as of this encounter Plan of Treatment Not on file documented as of this encounter Procedures Procedure Name Priority Date/Time Associated Diagnosis Comments XR KNEE AP & LAT RIGHT Routine 03/18/2017 8:58 AM EDT Presence of artificial knee joint, right documented in this encounter Results * XR Knee 1-2 Views Right (Generic) (03/18/2017 8:58 AM EDT) Anatomical Region Laterality Modality Knee Right Digital Radiogra phy Impressions 03/18/2017 10:31 AM EDT Question minimal increased linear lucency below the medial flange of the tibial component as described above. Appearance may in part be due to difference in projection. Narrative 03/18/2017 10:31 AM EDT EXAMINATION: XR KNEE 1-2 VIEWS RIGHT (GENERIC) CLINICAL HISTORY: annual check TECHNIQUE: 2 views right knee COMPARISON: 03/26/2016 FINDINGS: There is stable alignment of the right TKA. There is minimal increased lucency below the posterior medial tibial plateau component that may be related to projection. Attention to this region on follow-up studies recommended. No evidence of periprosthetic fracture. Bone density appears normal. A small joint effusion persists. Procedure Note China Winters MD - 03/18/2017 EXAMINATION: XR KNEE 1-2 VIEWS RIGHT (GENERIC) CLINICAL HISTORY: annual check TECHNIQUE: 2 views right knee COMPARISON: 03/26/2016 FINDINGS: There is stable alignment of the right TKA. There is minimal increasedlucency below the posterior medial tibial plateau component that may be relatedto projection. Attention to this region on follow-up studies recommended.No evidence of periprosthetic fracture. Bone density appears normal. A smalljoint effusion persists. IMPRESSION Question minimal increased linear lucency below the medial flange of thetibial component as described above. Appearance may in part be due to differencein projection. 10:31 AM Dane Fleming MD IMG DX ORDERABLES documented in this encounter Visit Diagnoses Diagnosis Presence of artificial knee joint, right documented in this encounter Care Teams Tin Container Straightener Relationship Specialty Start Date End Date Leticia Valero, MESERET PCP - General Family Medicine 03/18/17 12/16/18 documented as of this encounter
--- OUTSIDE RECORDS SUMMARY | 2024-03-18 14:59 | XMS_ITS | Encounter Summary ---
Author Organization [facility] [place] [address] Care Team Providers Care Corporate Investigator Name Role Phone AnjumAnthonyLeticiamona Coyle APRN Primary Care Provider Encounter Details Date Type Department Care Team (Latest Contact Info) Description 03/18/2017 10:07 AM EDT - 03/18/2017 11:59 PM EDT Hospital Encounter XRay at [address] [place] [address] Mercedez Martins APRN [facility] [place] [address] Status post total knee replacement, right with Dr. Fleming (02/22/16); Status post right knee replacement Discharge Disposition: [...] Associated Diagnosis Comments XR KNEE STANDING ALIGNMENT AND 1-2 VIEWS RIGHT Routine 03/18/2017 10:29 AM EDT Status post total knee replacement, right with Dr. Fleming (02/22/16) Status post right knee replacement documented in this encounter Results * XR Knee Standing Alignment & 1-2 views Right (03/18/2017 10:29 AM EDT) Anatomical Region Laterality Modality Knee Right Digital Radiogra phy Impressions 03/18/2017 11:19 AM EDT Stable alignment status post right TKA. Narrative 03/18/2017 11:19 AM EDT EXAMINATION: XR KNEE STANDING ALIGNMENT AND 1-2 VIEWS RIGHT CLINICAL HISTORY: need additional imaging of right knee TKA with pain. ??please add alignment x-ray and merchant view to x-rays obtained today TECHNIQUE: Separate images of the pelvis, knees and feet were acquired in the AP projection with the patient standing. These images were stitched together to form a composite image of the pelvis and legs allowing for evaluation of lower extremity alignment in the weight bearing position. Bilateral skyline view also obtained. COMPARISON: Additional views obtained earlier today and prior study 03/26/2016. FINDINGS: Previously questioned lucency below the tibial flange is not identified on the standing view, supporting difference in projection accounting for this appearance. There is mild medial deviation of the right weight-bearing axis and pronounced medial deviation of the left weight-bearing axis, stable compared to prior study.. Procedure Note China Winters MD - 10/31/2017 EXAMINATION: XR KNEE STANDING ALIGNMENT AND 1-2 VIEWS RIGHT CLINICAL HISTORY: need additional imaging of right knee TKA with pain.please add alignment x-ray and merchant view to x-rays obtained today TECHNIQUE: Separate images of the pelvis, knees and feet were acquired inthe AP projection with the patient standing. These images were stitched togetherto form a composite image of the pelvis and legs allowing for evaluation oflower extremity alignment in the weight bearing position. Bilateral skyline viewalso obtained. COMPARISON: Additional views obtained earlier today and prior study03/26/2016. FINDINGS: Previously questioned lucency below the tibial flange is not identified onthe standing view, supporting difference in projection accounting for this appearance. There is mild medial deviation of the right weight-bearingaxis and pronounced medial deviation of the left weight-bearing axis, stablecompared to prior study.. IMPRESSION Stable alignment status post right TKA. 11:19 AM Mercedez Martins APRN IMG DX ORDERABLES documented in this encounter Visit Diagnoses Diagnosis Status post total knee replacement, right with Dr. Fleming (02/22/16) Status post right knee replacement documented in this encounter Care Teams Corporate Investigator Relationship Specialty Start Date End Date Leticia Valero APRN PCP - General Family Medicine 03/18/17 12/16/18 documented as of this encounter
--- OUTSIDE RECORDS SUMMARY | 2024-03-18 14:59 | XMS_ITS | Encounter Summary ---
[place] [address] Care Team Providers Care Welfare Analyst Name Role Phone Leticia Valero MESERET Primary Care Provider Reason for Visit * Reason Comments Follow-up R TKA Encounter Details Date Type Department Care Team (Late st Contact Info) Description 03/18/2017 9:40 AM EDT Office [place] [address] Dane Fleming MD [facility] [place] [address] Status post right knee replacement (Primary Dx); Status post total knee replacement, right with Dr. Fleming (02/22/16); Instability of knee joint, right Social History Tobacco Use Types Packs/Day Years [...] Sign Reading Time Taken Comments Blood Pressure 115/78 03/18/2017 9:18 AM EDT Pulse 63 03/18/2017 9:18 AM EDT Temperature - - Respiratory Rate - - Oxygen Saturation - - Inhaled Oxygen Concentration - - Weight 83.9 kg (185 lb) 03/18/2017 9:18 AM EDT v erbal; Height 180.3 cm (5' 11) 03/18/2017 9:18 AM EDT verbal Body Mass Index 25.8 03/18/2017 9:18 AM EDT documented in this encounter Progress Notes * Laureen Martins, [employer]PER[employer]OR [employer] - 03/18/2017 9:40 AM EDT Arthroplasty/Orthopaedic History: 1. Right knee TKA. DOS: 02/22/2016. Chief Complaint: Right knee TKA ~ 1 year ago HPI: Yvan Maddox is a very pleasant 42 y.o. year-old male and is now approximately 13 months status post right total knee replacement The patient has been doing ok. Pain is controlled with current analgesics. Medication(s) being used: ibuprofen (OTC). Upon further questioning, Yvan and his report pain in the popliteal fossa region and an unstable feeling. His reports that his knee gave out 01/14/2017. No fevers, chills, nausea, vomiting, or symptoms of infection. As well discussedin his previous clinic visit he was struggling with skin excoriation, he and his tell me that this resolved with no reported infection Yvan has been ambulating with no assistive device and no longer working with PT. He is not taking narcotic pain medicine. Finally, Yvan does feel that the right knee does feel better than before his surgery, yet again somewhat frustrated about persistent pain, swelling and instability. His health has been stable otherwise and he is here for definitive management. Patient's medications, allergies, past medical, surgical, social and family histories were reviewedand updated as appropriate. ROS: Denies: fever, chills, night sweats, nausea, or vomiting BP 115/78 Pulse 63 Ht 180.3 cm (5' 11) Comment: verbal Wt 83.9 kg (185 lb) Comment: verbal; BMI 25.8 kg/m2 Physical Exam: Well-appearing male in no acute distress. Alert and Oriented x 3 and answers all questions appropriately. The incision is well healed, with no signs of infection. Positional changes are brisk. No assistive devices. SLR capability is strong. EHL/FHL 5/5. Right knee small intra-articular effusion. No erythema or evidence of infection. Knee ROM: Extension:0 Flexion: 105 Alignment: 0-4 degrees Neutral Stability: A/P Translation <5mm. Varus Increased coronal instability > 5 mm with a SEP Valgus Increased coronal instability > 5 mm with a SEP Extension La degrees or less Patella Tracking: Normal Pulses Palpable: Right PT: Yes Right DP:Yes Motor/Sensory: Distal Motor: Normal Distal Sensory: Normal Quadriceps Strength: 5 X-RAYS: Multiple radiographic views were obtained at my request and reviewed with the patient. X-rays show a well-placed prosthesis with no evidence of fracture, subsidence, loosening, or periprosthetic complication. Additional images of the PF joint with merchant and alignment views added today with stable alignment and no evidence of patella subluxation. See radiology report regarding possible increased lucency on a/p view of the right knee proximal tibia. No pain at this site. With additional images obtained today this may be positional. Questionnaire Responses:[facility] Surgical Postop Visit 03/18/2017 PROMIS-10 General Health Very Good PROMIS-10 Quality of Life Very Good PROMIS-10 Physical Health Good PROMIS-10 Mental Health Very Good PROMIS-10 Social Activity Very Good PROMIS-10 Everyday Activities Mostly PROMIS-10 Pain 7 PROMIS-10 Fatigue Mild PROMIS-10 Social Roles Excellent PROMIS-10 Anxious or Depressed Rarely PROMIS PHYSICAL HEALTH SCORE 42.3 PROMIS MENTAL HEALTH SCORE 53.3 KOOS JR Scores 50.01 Problems with surgical incision/wound after surgery No Gone to ER since knee surgery Yes Where was ER located? [facility] Date of ER visit 02/25/2016 Reason for ER visit pain and inflammation Admitted to hospital since recent ortho surgery Yes [facility] Date of admission 02/25/2016 Discharge date 02/26/2016 Reason you went to hospital pain and inflamation Additional surgery on same body part No TKA Grade 6 Pain in other KNEE None Back pain at this moment None Satisfaction with Treatment Satisfied Choose Same Treatment Again Definitely yes Some recent data might be hidden Orthopeadics [facility] Response 03/18/2017 KOOS JR Scores 50.01 Some recent data might be hidden Spine [facility] Response 03/18/2017 KOOS JR Scores 50.01 Some recent data might be hidden Lab Results Component Value Date WBC 9.1 03/18/2017 RBC 5.06 03/18/2017 HGB 15.0 03/18/2017 HCT 46.5 03/18/2017 MCV 91.9 03/18/2017 MCH 29.6 03/18/2017 MCHC 32.3 03/18/2017 PLATELET 285 03/18/2017 RDWCV 13.7 03/18/2017 Lab Results Component Value Date SEDRATE 7 03/18/2017 Lab Results Component Value Date SEDRATE 7 03/18/2017 ASSESSMENT/PLAN: Mr. Maddox is a 42 y.o. year old male status post right total knee replacement. He is doing ok yet does admit to persistent popliteal fossa pain and an unstable feeling to the knee. His clinical exam and labs are reassuring for no obvious infection. Upon further questioning, He doesfeel better than before his surgery. Dr Fleming looked in on the patient and agrees with above. There is mid-flexion instability noted on exam. We can try a right knee hinged brace for which we can ordertoday. If this brace helps with the instability complaints, then he can certainly continue with themodality. However, If instability and pain persists, he could consider revision surgery for up sizing the poly. He would like to think about this option and call Dr. Fleming PRN. If he chooses non-op [place] for above, we can see Yvan in 1 year for repeat examination. X-rays will be needed at that time. Patient may return to normal activities as his pain and function allow. Finally, He and his are concerned about the possibility of further surgery and the use of disability insurance. I have offered Naomi Hooper's services/card who they can feel free to call PRN if they need further assistance in the matter. Pt agrees, questions solicited/answered, will return as scheduled and as needed for concerns or questions. Pt understands they may also call us prn for above. We discussed the appropriate precautions surrounding dental [...] tract infections. All questions were answered. Signed: LAUREEN MARTINS APRN 03/18/2017 documented in this encounter Plan of Treatment Not on file documented as of this encounter Results * XR Knee Standing Alignment AP Lat [place] Right (07/21/2017 2:01 PM EST) Anatomical Region [...] swelling and joint effusion on the RIGHT Laureen Martins APRN IMG DX ORDERABLES * Sedimentation rate (03/18/2017 9:59 AM EDT) Sedimentation Rate Automated 7 0 - 15 mm/hr [facility] Blood specimen (specimen) 03/18/2017 9:59 AM EDT 03/18/2017 10:07 AM EDT Narrative Resulting Agency Comment Spec In Lab Laureen Martins APRN HEMATOLOGY ORDERABL ES [facility] [place] [address] * CRP, acute inflammation (03/18/2017 9:59 AM EDT) C-Reactive Protein 0.8 <=4.9 mg/L [facility] Blood specimen (specimen) 03/18/2017 9:59 AM EDT 03/18/2017 10:07 AM EDT Narrative Resulting Agency Comment Spec In Lab Laureen Stiles Eliezer [employer]PER[employer] CHEMISTRY ORDERABLE S [facility] [place] [address] documented in this encounter Visit Diagnoses Diagnosis Status post right knee replacement- Primary Status post total knee replacement, right with Dr. Fleming (02/22/16) Instability of knee joint, right Status post right knee replacement documented in this encounter Care Teams Welfare Analyst Relationship Specialty Start Date End Date Leticia Valero APRN PCP - General Family Medicine 03/18/17 12/16/18 documented as of this encounter
--- OUTSIDE RECORDS SUMMARY | 2024-03-18 14:59 | XMS_ITS | Encounter Summary ---
[place] [address] Care Team Providers Care Paint Preparer Name Role Phone AnjumLeticia Leonides CARL Primary Care Provider Reason for Visit * Reason Comments Pre-op Exam TKA rev. 06/16/17 Encounter Details Date Type Department Care Team (Late st Contact Info) Description 05/29/2017 2:40 PM EST Office [place] [address] Armando Espinosa MD [facility] [address] [place] [address] Preop examination; Status post right knee replacement; Instability of knee joint, right; Cigarette smoker Social History Tobacco Use Types Packs/Day Years [...] Sign Reading Time Taken Comments Blood Pressure 114/82 05/29/2017 2:25 PM EST Pulse 60 05/29/2017 2:25 PM EST Temperature - - Respiratory Rate - - Oxygen Saturation 99% 05/29/2017 2:25 PM EST Inhaled Oxygen Concentration - - Weight 80.7 kg (177 lb 14.6 oz) 05/29/2017 2:25 PM EST Height 180 cm (5' 10.87) 05/29/2017 2:25 PM EST Body Mass Index 24.91 05/29/2017 2:25 PM EST documented in this encounter Progress Notes * Alessandra Kramer RN - 05/29/2017 2:40 PM EST 06/03/17 I was asked to send Mupirocin to patient with instructions to start prior to the surgery with Dr. Fleming on 06/16/17. Lot# [id number]. The OR drapery head former spoke with the patient advising him that the medication was being sent. Patient knows how to contact the nurse if any further questions or concernsoccur. documented in this encounter H&P Notes * Armando Espinosa MD - 05/29/2017 2:40 PM EST Images from the original note were not included. CC: Yvan Maddox is a 42 y.o. male with the following problems and medications that is being seen in the clinic for consultation at the request of his surgeon Dr. Dane Fleming for preoperative risk stratification and management recommendations in anticipation of right total knee revision arthroplasty for instability and pain. HPI - Pain - Location - Right knee Quality - aching, clunking Onset - since the surgery Duration - more than a year Intensity - moderate Aggravating factors - standing, walking, stepping, moving his right knee while in bed can reproduce the clunking noise Alleviating factors - APAP, rest. He reports he had severe pain and swelling on POD#4 when at home and he had to have urgent evaluation back inthe clinic here. He reports no such severe pain but does have the moderate pain with the instability and has persistent swelling which is not hot or tender. Patient Active Problem List Diagnosis Code ??? History of nasal surgery Z98.890 ??? Status post total knee replacement, right with Dr. Fleming (02/22/16) Z96.651 ??? Knee instability M25.369 Current Outpatient Prescriptions Medication Sig Dispense Refill ??? acetaminophen (TYLENOL) 500 mg Tablet Take 2 tablets by mouth every 8 hours. Around the clock until 03/03/16, and then as needed. DO NOT EXCEED 3000 mg tylenol in a 24 hour period. ??? diphenhydrAMINE (BENADRYL) 25 mg Capsule Take 25 mg by mouth every 6 hours as needed for Itching. No current facility-administered medications for this visit. Social History Occupational History ??? Not on file. Social History Main Topics ??? Smoking status: Current Every Day Smoker Packs/day: 0.25 Types: Cigarettes ??? Smokeless tobacco: Former User Types: Chew Comment: a pack a week ??? Alcohol use No ??? Drug use: Yes Special: Marijuana Comment: daily ??? Sexual activity: Not on file Family History Problem Relation Age of Onset ??? Diabetes Father Review of Systems: Review of Systems Constitutional: Negative for chills, fatigue and fever. HENT: Negative for mouth sores and nosebleeds. Eyes: Negative for photophobia and visual disturbance. Respiratory: Negative for cough, shortness of breath and stridor. Cardiovascular: Negative for chest pain, palpitations and leg swelling. Gastrointestinal: Negative for abdominal pain, anal bleeding and blood in stool. Endocrine: Negative for polydipsia and polyphagia. Genitourinary: Negative for dysuria, frequency and hematuria. Musculoskeletal: Positive for gait problem and joint swelling. Negative for back pain. Skin: Negative for pallor and rash. Allergic/Immunologic: Positive for environmental allergies. Negative for immunocompromised state. Neurological: Positive for numbness. Negative for weakness, light-headedness and headaches. Right arm carpal tunnel symptoms of numbness and tingling. Had Left carpal tunnel surgery. Hematological: Negative for adenopathy. Does not bruise/bleed easily. Psychiatric/Behavioral: Negative for confusion, decreased concentration and dysphoric mood. Allergies: Allergies Allergen Reactions ??? Hay [Grass Pollen-[place], Standard] Hives Physical Exam: Last Set of Vitals and Range over past 24 hours: Last value Range last 24 hrs Temperature Temp: -- Heart Rate Heart Rate: 60 Heart Rate: [60-84] Blood Pressure BP: 114/82 BP: (114)/(82) Respiratory Rate Resp: -- SpO2 SpO2: 99 % SpO2: [99 %-100 %] Body mass index is 24.91 kg/(m^2). Height: 180 cm (5' 10.87) Physical Exam Constitutional: He is oriented to person, place, and time. He appears well- developed. No distress. HENT: Head: Normocephalic and atraumatic. Eyes: Conjunctivae are normal. No scleral icterus. Neck: Neck supple. No JVD present. Cardiovascular: Normal rate, regular rhythm, normal heart sounds and intact distal pulses. Exam reveals no gallop and no friction rub. No murmur heard. Pulmonary/Chest: Effort normal and breath sounds normal. No stridor. No respiratory distress. He has no wheezes. He has no rales. Abdominal: Soft. Bowel sounds are normal. He exhibits no distension. There is no tenderness. There is no rebound. Musculoskeletal: He exhibits no edema. Right knee effusion present. It is not hot or tender. Midline scar is flat and dry. Has flexion instability with audible clunk, has extension to full and flexion to 100. Ambulatory without assistive device. Neurological: He is alert and oriented to person, place, and time. Skin: Skin is warm and dry. He is not diaphoretic. No pallor. Psychiatric: He has a normal mood and affect. His behavior is normal. Judgment and thought content normal. Lab Results Component Value Date WBC 8.1 05/29/2017 RBC 5.31 05/29/2017 HGB 15.9 05/29/2017 HCT 47.7 05/29/2017 MCV 89.8 05/29/2017 MCH 29.9 05/29/2017 MCHC 33.3 05/29/2017 PLATELET 384 (H) 05/29/2017 RDWCV 13.9 (H) 05/29/2017 Lab Results Component Value Date NA 142 05/29/2017 K 4.1 05/29/2017 CL 101 05/29/2017 CO2 26 05/29/2017 BUN 12 05/29/2017 CREATININE 1.01 05/29/2017 GLUCOSE 70 05/29/2017 CALCIUM 9.6 05/29/2017 Estimated Creatinine Clearance: 101.1 mL/min (based on Cr of 1.01). EKG (image reviewed): Normal sinus rhythm Xray right knee images and report reviewed - Previously questioned lucency below the tibial flange is not identified on the standing view, supporting difference in projection accounting for this appearance. There is mild medial deviation of the right weight-bearing axis and pronounced medial deviation of the left weight-bearing axis, stable compared to prior study.. ?? IMPRESSION Stable alignment status post right TKA. A/P 1. Preop examination 2. Status post right knee replacement 3. Instability of knee joint, right 4. Cigarette smoker He was instructed to abstain completely from smoking preoperatively and through his recovery after surgery. Increased risk of complications including infection associated with smoking was explained. Major Risk Factor per the Revised Cardiac Risk Index (Bold if present) - There is no history of CAD, CHF, CVA or TIA, DM2 on insulin, or a Creatinine >2 Risk diagnosis for MACE (major adverse cardiovascular event = Myocardial infarction, pulmonary edema, ventricular fibrillation, primary cardiac arrest, or complete heart block.) : Low <1% . 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 ARISCAT/CANET Score - estimates the risk of postoperative pulmonary complications as being low ~3.5%. STOP BANG Score - low risk for TUAN. Per the ACS NSQIP calculator I estimated the following. RECCO: Orders per Dr. Dane Fleming documented in this encounter Plan of Treatment Not on file documented as of this encounter Visit Diagnoses Diagnosis Preop examination Preoperative examination, unspecified Status post right knee replacement Instability of knee joint, right Cigarette smoker Tobacco use disorder documented in this encounter Care Teams Paint Preparer Relationship Specialty Start Date End Date Leticia Valero APRN PCP - General Family Medicine 03/18/17 12/16/18 documented as of this encounter
--- OUTSIDE RECORDS SUMMARY | 2024-03-18 14:59 | XMS_ITS | Encounter Summary ---
[place] [address] Care Team Providers Care Fitter Armament Name Role Phone Jeff Sherman MD Primary Care Provider [phone] Reason for Visit * Reason Comments Aftercare Of Tjr R TKA 03/07/16 Encounter Details Date Type Department Care Team (Late st Contact Info) Description 07/17/2016 2:30 PM EST Office [place] [address] Dane Fleming MD [facility] [place] [address] Status post total knee replacement, right with Dr. Fleming (02/22/16) (Primary Dx) Social History Tobacco Use Types Packs/Day Years Used Date Smoking Tobacco: Some Days Cigarettes Smokeless Tobacco: Former Chew Comments:a cigarette a day Alcohol Use Standard Drinks/Week Comments No 0 (1 standard drink = 0.6 oz pur e alcohol) Sex and Gender Information Value Date Recorded Sex Assigned at Not on file Gender Identity Not on file Sexual Orientation Not on file documented as of this encounter Last Filed Vital Signs Vital Sign Reading Time Taken Comments Blood Pressure 131/81 07/17/2016 2:15 PM EST Pulse 73 07/17/2016 2:15 PM EST Temperature - - Respiratory Rate - - Oxygen Saturation - - Inhaled Oxygen Concentration - - Weight 80.7 kg (178 lb) 07/17/2016 2:15 PM EST v erbal Height 180.3 cm (5' 11) 07/17/2016 2:15 PM EST verbal Body Mass Index 24.83 07/17/2016 2:15 PM EST documented in this encounter Progress Notes * Laureen Martins, SPRAYING MACHINE OPERATOR - 07/17/2016 2:30 PM EST Arthroplasty/Orthopaedic History: 1. Right knee TKA. DOS: 03/07/2016. Chief Complaint: Planned f/u for right knee TKA. HPI: Yvan Maddox is a very pleasant 41 y.o. year-old male and is now 5 months post right total knee replacement The patient has been doing well. The patient is not having any pain and he feels thathis ROM has improved since his most recent appointment. No fevers, chills, nausea, vomiting, or symptoms of infection. He does complain of dry, itchy skin of the right proximal tibial region and finds that he scratching himself quite often. He has been using OTC lotions in that regard with moderate effect. No open abrasions or redness/infection. Yvan has been ambulating with no assistive device and no longer working with PT. He is not taking narcotic pain medicine. His health has been stableotherwise and he is here for definitive management. Anticoagulation status NONE. ROS: Denies: fever, chills, night sweats, nausea, or vomiting Patient's medications, allergies, past medical, surgical, social and family histories were reviewedand updated as appropriate. BP 131/81 Pulse 73 Ht 180.3 cm (5' 11) Comment: verbal Wt 80.7 kg (178 lb) Comment: verbal BMI 24.83 kg/m2 Physical Exam: Well-appearing male in no acute distress. Alert and Oriented x 3 and answers all questions appropriately. The incision is well healed, with no signs of infection. There is some dry andflaky skin at the proximal tibial medial plateau region. NO open abrasions or lesions noted. Post Op Right Knee Exam: Knee ROM: Extension:0 Flexion: 115 Alignment: 0-4 degrees Neutral Stability: A/P Translation <5mm. Varus <5mm Valgus <5mm Extension La degrees or less Patella Tracking: Normal Pulses Palpable: Right PT: Yes Right DP:Yes Motor/Sensory: Distal Motor: Normal Distal Sensory: Normal Quadriceps Strength: 5 X-RAYS: No new images. Questionnaire Responses: [facility] 07/17/2016 PROMIS-10 General Health Good PROMIS-10 Quality of Life Good PROMIS-10 Physical Health Good PROMIS-10 Mental Health Good PROMIS-10 Social Activity Excellent PROMIS-10 Everyday Activities Moderately PROMIS-10 Pain 7 PROMIS-10 Fatigue Mild PROMIS-10 Social Roles Very Good PROMIS-10 Anxious or Depressed Sometimes PROMIS PHYSICAL HEALTH SCORE 39.8 PROMIS MENTAL HEALTH SCORE 48.3 KOOS JR Scores 54.84 Problems with surgical incision/wound after surgery No Gone to ER since knee surgery Yes Where was ER located? [facility] Date of ER visit 02/24/2016 Reason for ER visit massive swelling and major pain Admitted to hospital since recent ortho surgery No Hospital - Date of admission - Discharge date - Reason you went to hospital - Additional surgery on same body part No TKA Grade 7 Pain in other KNEE None Back pain at this moment None Satisfaction with Treatment Satisfied Choose Same Treatment Again Probably no Orthopeadics [facility] Response 07/17/2016 KOOS JR Scores 54.84 Spine [facility] Response 07/17/2016 KOOS JR Scores 54.84 ASSESSMENT/PLAN: Mr. Maddox is a 41 y.o. year old male status post right total knee replacement Doing well postoperatively although bothered by dry skin and pruritis of the proximal medial tibial region. Advised using heavy emollient skin lotion and possible atarax use for pursuits. He will discuss this with his PCP as needed. I encouraged him to avoid scratching his skin as best possible avoid any skin abrasions or open sores which could put him at risk for infection. Continue weightbearing as tolerated and working on range of motion. We will see him back in 7 months for repeat examination. X-rays will be needed at that time. Patient may return to normal activities as his pain and function a llow. We discussed the appropriate precautions surrounding dental [...] questions were answered. Signed: LAUREEN MARTINS APRN 07/17/2016 documented in this encounter Plan of Treatment Not on file documented as of this encounter Visit Diagnoses Diagnosis Status post total knee replacement, right with Dr. Fleming (02/22/16)- Primary documented in this encounter Care Teams Fitter Armament Relationship Specialty Start Date End Date Jeff Sherman MD [facility] [address] [place] [address] PCP - General General Internal Medicine 11/07/1509/16 documented as of this encounter
--- OUTSIDE RECORDS SUMMARY | 2024-03-18 14:59 | XMS_ITS | Encounter Summary ---
[place] [address] Care Team Providers Care Hadoop Analyst Name Role Phone Jeff Sherman MD Primary Care Provider [phone] Encounter Details Date Type Department Care Team (Late st Contact Info) Description 03/22/2016 Orders [place] [address] Dane Fleming MD [facility] [place] [address] Status post total knee replacement, right with Dr. Fleming (02/22/16) Social History Tobacco Use Types Packs/Day Years Used Date Smoking Tobacco: Some Days Cigarettes Smokeless Tobacco: Current Chew Comments:pt reports cutting back to 3 per day - no chew use since 02/06/16 Alcohol Use Standard Drinks/Week Comments No 0 (1 standard drink = 0.6 oz pur e alcohol) Sex and Gender Information Value Date Recorded Sex Assigned at Not on file Gender Identity Not on file Sexual Orientation Not on file documented as of this encounter Plan of Treatment Not on file documented as of this encounter Results * XR Knee Standing Alignment AP Lat [place] Right (03/26/2016 2:37 PM EST) Anatomical Region Laterality Modality Knee Right Digital Radiogra phy Impressions 03/26/2016 4:34 PM EST Prior right TKA without radiographic evidence of complication. Persistent moderate to large right knee joint effusion. Narrative 03/26/2016 4:34 PM EST EXAMINATION: XR KNEE STANDING ALIGNMENT AP LAT SKY[place] RIGHT CLINICAL HISTORY: Status post right total knee replacement; check alignment TECHNIQUE: Separate images of the pelvis, knees and feet were acquired in the AP projection with the patient standing. These images were stitched together to form a composite image of the pelvis and legs allowing for evaluation of lower extremity alignment in the weight bearing position. Additionally, frontal and sunrise view radiographs of the bilateral knees and lateral radiograph of the right. COMPARISON: Multiple prior knee radiographs, including the most recent, postarthroplasty right knee radiographs dated 02/24/2016. FINDINGS: There has been prior right total knee arthroplasty and patellar resurfacing. The hardware appears intact without radiographic evidence of loosening. There is no periprostatic fracture or other fracture. There is no dislocation. There is a persistent moderate to large right knee joint effusion. There has been interval removal of the anterior surgical skin giulia, with some improvement in the previously noted immediate postoperative findings of prepatellar soft tissue swelling and prepatellar and intra-articular gas. 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 There is medial deviation of the lower extremity weightbearing axes by approximately 2 cm each. Procedure Note Anna Pink MD - 03/26/2016 EXAMINATION: XR KNEE STANDING ALIGNMENT AP LAT SKYLINE RIGHT CLINICAL HISTORY: Status post right total knee replacement; checkalignment TECHNIQUE: Separate images of the pelvis, knees and feet were acquired inthe AP projection with the patient standing. These images were stitched togetherto form a composite image of the pelvis and legs allowing for evaluation oflower extremity alignment in the weight bearing position. Additionally, [place] sunrise view radiographs of the bilateral knees and lateral radiograph ofthe right. COMPARISON: Multiple prior knee radiographs, including the most recent, postarthroplasty right knee radiographs dated 02/24/2016. FINDINGS: There has been prior right total knee arthroplasty and patellarresurfacing. The hardware appears intact without radiographic evidence of loosening. Thereis no periprostatic fracture or other fracture. There is no dislocation. Thereis a persistent moderate to large right knee joint effusion. There has beeninterval removal of the anterior surgical skin giulia, with some improvement inthe previously noted immediate postoperative findings of prepatellar softtissue swelling and prepatellar and intra-articular gas. Again incidentally noted is a bipartite left patella, a normal anatomicvariant. There is medial deviation of the lower extremity weightbearing axes by approximately 2 cm each. IMPRESSION Prior right TKA without radiographic evidence of complication.Persistent moderate to large right knee joint effusion. Dane Fleming MD IMG DX ORDERABLES documented in this encounter Visit Diagnoses Diagnosis Status post total knee replacement, right with Dr. Fleming (02/22/16) Status post total knee replacement, right with Dr. Fleming (02/22/16) documented in this encounter Care Teams Hadoop Analyst Relationship Specialty Start Date End Date Jeff Sherman MD [facility] [address] [place] [address] PCP - General General Internal Medicine 11/07/1509/16 documented as of this encounter
--- OUTSIDE RECORDS SUMMARY | 2024-03-18 14:59 | XMS_ITS | Encounter Summary ---
[place] [address] Care Team Providers Care Technology Integration Specialist Name Role Phone Anjum Leticia Coyle APRN Primary Care Provider [phone] Encounter Details Date Type Department Care Team (Latest Contact Info) Description 05/29/2017 1:00 PM EST [place] [address] Instability of knee joint, unspecified laterality Social History Tobacco Use Types Packs/Day Years [...] Procedure Name Priority Date/Time Associated Diagnosis Comments ABORH RECHECK STATUS Routine 05/29/2017 12:54 PM EST HEMOGRAM Routine 05/29/2017 12:54 PM EST Instability of knee joint, unspecified laterality DIFFERENTIAL, AUTOMATED Routine 05/29/2017 12:54 PM EST Instability of knee joint, unspecified laterality TYPE AND SCREEN, SDP (FUTURE SURGERY, [facility] SAME DAY PROGRAM ONLY) Routine 05/29/2017 12:54 PM EST Instability of knee joint, unspecified laterality ABO/RH TYPING Routine 05/29/2017 12:54 PM EST Instability of knee joint, unspecified laterality APTT Routine 05/29/2017 12:54 PM EST Instability of knee joint, unspecified laterality PROTHROMBIN TIME Routine 05/29/2017 12:5 4 PM EST Instability of knee joint, unspecified laterality CBC (WITH DIFF) Routine 05/29/2017 12:54 PM EST Instability of knee joint, unspecified laterality ANTIBODY SCREEN Routine 05/29/2017 12:54 PM EST Instability of knee joint, unspecified laterality BASIC METABOLIC PANEL Routine 05/29/2017 12:54 PM EST Instability of knee joint, unspecified laterality documented in this encounter Results * ABORH Recheck Status (05/29/2017 12:54 PM EST) ABORH Type Recheck Completed [facility] Blood specimen (specimen) 05/29/2017 12:54 PM EST 05/29/2017 12:59 PM EST Narrative Resulting Agency Comment Spec In Lab Dane Fleming MD BLOOD BANK LAB ORDER KONSTANTIN [facility] [place] [address] * Differential, Automated (05/29/2017 12:54 PM EST) Neutrophil % 61.2 % [facility] Neutrophil Absolute 4.97 1.70 - 6.10 x10(3)/mcL [facility] Lymph % 28.7 % [facility] Lymphocytes Abs 2.3 0.9 - 3.2 x10(3)/[facility] Monocyte % 5.1 % [facility] Monocyte Abs 0.4 0.3 - 0.9 x10(3)/[facility] Eos % 3.7 % [facility] Eosinophils Abs 0.3 0.0 - 0.4 x10(3)/[facility] Basophil % 0.9 % [facility] Baso Absolute 0.1 0.0 - 0.1 x10(3)/[facility] Immature Gran % 0.40 % [facility] Comment: Immature granulocytes(IG's)percentage and absolute count will include metamyelocytes, myelocytes, and promyelocytes. Blood smears from CBCs yielding IG's will be scanned manually for concordance. If this scan disagrees with the automated IG or if promyelocytes are noted, a manual differential will be performed. Immature Gran Absolute 0.03 0.00 - 0.04 x10(3)/[facility] Blood specimen (specimen) 05/29/2017 12:54 PM EST 05/29/2017 12:58 PM EST Narrative Resulting Agency Comment Spec In Lab Dane Fleming MD HEMATOLOGY ORDERABLE S [facility] [place] [address] * (ABNORMAL) Hemogram (05/29/2017 12:54 PM EST) White Blood Cell 8.1 4.0 - 9.5 x10(3)/mc L [facility] Red Blood Cell 5.31 4.58 - 5.54 x10(6)/mc L [facility] Hemoglobin 15.9 13.7 - 16.5 gm/dL [facility] Hematocrit 47.7 40.5 - 48.5 % [facility] Mean Cell Volume 89.8 82.9 - 93.1 fL [facility] Mean Cell Hemoglobin 29.9 27.5 - 32.1 pg [facility] Mean Cell Hemoglobin Concentration 33.3 32.0 - 35.7 gm/dL [facility] Platelet 384(H) 145 - 357 x10(3)/mc L [facility] RDW Standard Deviation 46.0(H) 36.0 - 45.0 fL [facility] RDW coefficient of variation 13.9(H) 11.4 - 13.8 % [facility] Mean Platelet Volume 9.8 7.6 - 12.9 fL [facility] NRBC% auto 0.0 % [facility] NRBC Absolute 0.000 0.000 - 0.000 x10(3)/mc L [facility] Blood specimen (specimen) 05/29/2017 12:54 PM EST 05/29/2017 12:58 PM EST Narrative Resulting Agency Comment Spec In Lab Dane Fleming MD HEMATOLOGY ORDERABLE S [facility] [place] [address] * Antibody screen (05/29/2017 12:54 PM EST) Ab Screen Interp Negative [facility] Expires at [id number] on: 06/19/2017 [facility] Blood specimen (specimen) 05/29/2017 12:54 PM EST 05/29/2017 12:59 PM EST Narrative Resulting Agency Comment Spec In Lab Dane Fleming MD BLOOD BANK LAB ORDER KONSTANTIN [facility] [place] [address] * ABO/Rh Typing (05/29/2017 12:54 PM EST) ABORH Type O Pos [facility] Blood specimen (specimen) 05/29/2017 12:54 PM EST 05/29/2017 12:59 PM EST Narrative Resulting Agency Comment Spec In Lab Dane Fleming MD BLOOD BANK LAB ORDER KONSTANTIN Performing Organization Address [facility] Co de Phone Number [facility] [place] [address] * APTT (05/29/2017 12:54 PM EST) Partial Thromboplastin Time 31 25 - 35 sec [facility] Comment: The recommended therapeutic range for full dose, unfractionated heparin at [facility] is 80 ? 114 seconds. The use of the anti-Xa (heparin) level rather than the PTT is recommended for monitoring anticoagulation intensity in critically ill patients receiving unfractionated heparin by continuous IV infusion. Blood specimen (specimen) 05/29/2017 12:54 PM EST 05/29/2017 12:58 PM EST Narrative Resulting Agency Comment Spec In Lab Dane Fleming MD HEMATOLOGY ORDERABLE S Performing Organization Address [facility] Co de Phone Number [facility] [place] [address] * Prothrombin Time (05/29/2017 12:54 PM EST) Prothrombin Time 12.9 11.8 - 14.0 sec [facility] International Normalization Ratio 1.0 0.9 - 1.1 [facility] Comment: An INR <2.0 indicates adequate procoagulant activity for hemostasis in most patients without underlying bleeding disorders, though the INR may not adequately reflect hemostatic capacity in patients with liver disease and synthetic impairment. The recommended target INR range for therapeutic anticoagulation is 2.0 ? 3.0 for most applications, though lower and higher ranges may be appropriate depending on clinical circumstances. Blood specimen (specimen) 05/29/2017 12:54 PM EST 05/29/2017 12:58 PM EST Narrative Resulting Agency Comment Spec In Lab Dane Fleming MD HEMATOLOGY ORDERABLE S Performing Organization Address [facility] Co de Phone Number [facility] [place] [address] * Basic Metabolic Panel (non-fasting) (05/29/2017 12:54 PM EST) Glucose 70 65 - 199 mg/dL [facility] Comment:Diabetes: >=200 mg/d L plus symptoms Blood Urea Nitrogen 12 10 - 20 mg/dL [facility] Creatinine 1.01 0.80 - 1.50 mg/dL [facility] Sodium 142 135 - 145 mmol/L [facility] Potassium 4.1 3.5 - 5.0 mmol/L [facility] Comment: Please note: ??Patients with WBC >100,000 may have falsely elevated Potassium levels. ??For accurate Potassium quantification in these patients send serum separator tube (gold top) for subsequent determinations. ??Contact the Clinical Chemistry Laboratory if there are any questions. Chloride 101 98 - 107 mmol/L [facility] Carbon Dioxide 26 22 - 31 mmol/L [facility] Anion Gap 15 5 - 15 mmol/L [facility] Calcium 9.6 8.5 - 10.5 mg/dL [facility] Est Glomerular Filtration Rate >60 >=60 [facility] Comment: The reported eGFR should be multiplied by 1.2 for patients. The MDRD is not an appropriate measure of renal function for patients with body mass extremes or in patients with acute kidney failure. http://[employer]/DHnkdep http://[employer]/DHMCnkf Blood specimen (specimen) 05/29/2017 12:54 PM EST 05/29/2017 12:58 PM EST Narrative Resulting Agency Comment Spec In Lab Dane Fleming MD CHEMISTRY ORDERABLES [facility] [place] [address] documented in this encounter Visit Diagnoses Diagnosis Instability of knee joint, unspecified laterality documented in this encounter Care Teams Technology Integration Specialist Relationship Specialty Start Date End Date Leticia Valero APRN PCP - General Family Medicine 03/18/17 12/16/18 documented as of this encounter
--- OUTSIDE RECORDS SUMMARY | 2024-03-18 14:59 | XMS_ITS | Encounter Summary ---
[place] [address] Care Team Providers Care Tankerman Name Role Phone Jeff Sherman MD Primary Care Provider [phone] Encounter Details Date Type Department Care Team (Late st Contact Info) Description 02/28/2016 [place] [address] Dane Fleming MD [facility] [place] [address] Social History Tobacco Use Types Packs/Day Years [...] encounter Miscellaneous Notes * Telephone Encounter - Tomas Dodge RN - 02/28/2016 12:16 PM EDT Patient was given a prescription for Oxycontin over the weekend and was unable to fill it as it needed a PA. He is currently taking the max dose of Dilaudid 6 mg every 3 hours and currently is reporting 9 pain level. We will replace the Oxycontin with MS Contin for the next 7 days and use the Dilaudid for break through pain. [facility] in [place] notified of the change and asked to destroy the Oxycontin RX. Patient's girlfriend will drive to the clinic today for molded goods spot picker at . documented in this encounter Plan of Treatment Not on file documented as of this encounter Visit Diagnoses Not on filedocumented in this encounter Care Teams Tankerman Relationship Specialty Start Date End Date Jeff Sherman MD [facility] [address] [place] [address] PCP - General General Internal Medicine 11/07/1509/16 documented as of this encounter
--- OUTSIDE RECORDS SUMMARY | 2024-03-18 14:59 | XMS_ITS | Encounter Summary ---
Author Organization [facility] [place] [address] Care Team Providers Care Sign Poster Name Role Phone Anjum Leticia Coyle APRN Primary Care Provider [phone] Reason for Visit * Auth/Cert Specialty Diagnoses / Procedures Referred By Delbert diaz Referred To Contact Diagnoses Knee instability Knee instability Procedures PRO REVISE KNEE JOINT REPLACE, 1 PART @TOTAL KNEE REVISION ARTHROPLASTY, ONE COMPONENT (WRVU 21.12) Referral ID Status Reason Start Date Expiration Date Visits Re quested Visits Authorized [id number] 1 1 Encounter Details Date Type Department Care Team (Late st Contact Info) Description 06/16/2017 9:58 AM EST - 06/16/2017 12:51 PM EST [place] [id number] Dane Chan MD [facility] DR ORTHOPAED[facility] [place] [address] @TOTAL KNEE REVISION ARTHROPLASTY, ONE COMPONENT (WRVU 21.12) Social History Tobacco Use Types Packs/Day Years [...] Sign Reading Time Taken Comments Blood Pressure 116/87 06/16/2017 10:45 AM EST Pulse 57 06/16/2017 10:45 AM EST Temperature 36.6 ??C (97.9 ??F) 06/16/2017 8:35 AM ES T Respiratory Rate 16 06/16/2017 10:45 AM EST Oxygen Saturation 99% 06/16/2017 10:45 AM EST Inhaled Oxygen Concentration - - Weight 80.3 kg (177 lb) 06/16/2017 8:24 AM EST Height 180.3 cm (5' 11) 06/16/2017 8:24 AM EST Body Mass Index 24.69 06/16/2017 8:24 AM EST documented in this encounter Discharge Summaries * Christian Espinoza MD - 06/17/2017 9:21 AM EST Discharge Summary Patient Name: Yvan Maddox Patient Age: 42 y.o. Language: Guyanese Race: White Ethnicity: Not nor Admit date: 06/16/2017 Discharge date and time: 06/17/2017 Attending Physician: Dane Chan MD Discharge Physician: Dane Chan MD Follow-up Recommendations for Providers: See discharge instructions for additional details. Future Appointments Date Time Provider Department Center 07/15/2017 9:15 AM [facility] 07/15/2017 10:10 AM Dane Chan MD [facility] [address] [place] [address] CLIN Inpatient Provider Contact Information: Dane Chan MD Orthopedics: [phone] After hours and weekends, call [facility] Early Childhood Teacher, , and have the Orthopedic resident paged. Discharge Diagnoses (Hospital Problems) and Secondary Diagnoses (Chronic Problems): Active Hospital Problems Diagnosis ??? s/p R TKA revision for instability, polyswap 06/16/17 (Bernadette) Resolved Hospital Problems Diagnosis Date Resolved No resolved problems to display. Active Non-Hospital Problems Diagnosis ??? Status post total knee replacement, right with Dr. Chan (02/22/16) ??? History of nasal surgery Operations/Major Procedures: 06/16/2017 Surgeon(s) and Role: * Dane Chan MD - Primary * Zack Valerio MD Procedure(s): @TOTAL KNEE REVISION ARTHROPLASTY, ONE COMPONENT (WRVU 21.12) MODIFIER: ATTUNE STABILIZED FIXED PLATFORM DEPUY HPI: Yvan Maddox is a 42 y.o. 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 After thorough discussion of the risks and benefits, he elected to move forward with right total knee revision arthroplasty. Hospital Course: The patient was admitted for the above operation. DVT prophylaxis is: Aspirin 81mg twice daily for 30 days. Patient began rehab on POD#1 with weight bearing as tolerated of right leg remembering to use and assistive device at all times for balance and protection. Hooks was removed POD#0 and patientwas voiding spontaneously. On POD#1 the operative Mepilex Ag dressing was inspected and was dry andintact (dressing should remain in place until POD#7). Patient did not have a bowel movement prior to discharge but was passing flatus and was taking a diet without difficulty. Pain was well controlled on oral medications. Patient was voiding spontaneously without issue. By POD#1 the patient was medically stable and was cleared for safe discharge to home per PT. Hospital Consults: None Vital Signs at Discharge: Weight: Wt Readings from Last 1 Encounters: 06/16/17 80.3 kg (177 lb) Height: Ht Readings from Last 1 Encounters: 06/16/17 180.3 cm (5' 11) HC: HC Readings from Last 1 Encounters: No data found for HC BMI: Body mass index is 24.69 kg/(m^2). Last value Range last 24 hrs Temperature Temp: 37 ??C (98.6 ??F) Temp: [36.5 ??C (97.7 ??F)-37.1 ??C (98.8 ??F)] Heart Rate Heart Rate: 58 Heart Rate: [49-71] Blood Pressure BP: 113/72 BP: (108-134)/(64-90) Respiratory Rate Resp: 12 Resp: [12-21] SpO2 SpO2: 98 % SpO2: [92 %-100 %] Art BP BP (Arterial Line): -- Functional and Cognitive Status: Patient mobilizing with walker, cognitively intact at baseline mental status at time of discharge. Important Lab Data: Last 3 wbc, hgb, hct plt Recent Labs 06/17/17 0419 05/29/17 1254 03/18/17 0959 WBC 20.0* 8.1 9.1 HGB 13.4* 15.9 15.0 HCT 39.8* 47.7 46.5 PLATELET 239 384* 285 Last 3 Lytes Recent Labs 06/17/17 0419 05/29/17 1254 NA 140 142 K 4.2 4.1 CL 105 101 CO2 22 26 BUN 10 12 CREATININE 0.85 1.01 Last 3 Coags No results for input(s): PT, INR, PTT in the last 168 hours. Pending Lab Data at Discharge: none Studies: No results found. Transfusions: No Exam: Temp: [36.5 ??C (97.7 ??F)-37.1 ??C (98.8 ??F)] Heart Rate: [49-71] Resp: [12-21] BP: (108-134)/(64-90) SpO2: [92 %-100 %] Heart Rate from SPO2: [49 bpm-83 bpm] I/O last 3 completed shifts: In: 3990 [P.O.:840; I.V.:3100; IV Piggyback:50] Out: 2225 [Urine:2225] I/O this shift: In: 1190 [I.V.:1190] Out: - Gen: NAD, oriented x3 Pulm: Non-labored breathing, symmetric chest wall movement Card: Regular rate/rhythm Abd: Non-distended, normal BS, soft, non-tender to palpation Dressing: clean, dry, intact to right knee Ext: No edema, 2+ peripheral pulses Discharge Conditions/Prognosis: Stable, awake, and alert. Mobilizing as noted above, pain controlled on oral medications. Discharge to: Home Updated Allergies/ADRs: Allergies Allergen Reactions ??? Hay [Grass Pollen-[place], Standard] Hives Immunizations Given this Hospitalization: There is no immunization history on file for this patient. Discharge Medications: Your Medications New Medications Dose Details aspirin 81 mg Tbec Take 1 tablet by mouth 2 times daily for 30 days. 81 mg Quantity: 60 tablet Refills: 0 gabapentin 300 mg Cap Commonly known as: NEURONTIN Take 1 capsule by mouth nightly for 28 days. 300 mg Quantity: 28 capsule Refills: 0 oxyCODONE 5 mg Tab Commonly known as: ROXICODONE Take 1 tablet by mouth every 4 hours as needed for Pain. Take the smallest dose possible to controlyour pain. As your pain improves take smaller, less frequent doses. You may break the tablet to achieve a smaller dose. 5 mg Quantity: 60 tablet Refills: 0 polyethylene glycol 17 gram Pwpk Commonly known as: MIRALAX Take 17 g by mouth 2 times daily. Take to maintain normal bowel pattern while taking narcotic pain medication. 17 g Refills: 0 senna-docusate 8.6-50 mg Tab Commonly known as: PERICOLACE Take 2 tablets by mouth 2 times daily. Take to maintain normal bowel pattern while taking narcotic pain medication. 2 tablet Refills: 0 Continued medications with new dosing Dose Details acetaminophen 500 mg Tab Commonly known as: TYLENOL Take 2 tablets by mouth every 8 hours for 9 days. Around the clock until 06/26/17, and then as needed. DO NOT EXCEED 3000 mg tylenol in a 24 hour period. What changed: additional instructions 1000 mg Quantity: 54 tablet Refills: 0 Continued medications, unchanged Dose Details diphenhydrAMINE 25 mg Cap Commonly known as: BENADRYL Take 25 mg by mouth every 6 hours as needed for Itching. 25 mg Refills: 0 Smoking Status at Discharge: History Smoking Status ??? Current Every Day Smoker ??? Packs/day: 0.25 ??? Types: Cigarettes Smokeless Tobacco ??? Former User ??? Types: Chew Comment: a pack a week Instructions Given to Patient at Discharge: There are no outpatient Patient Instructions on file for this admission. General Instructions Activity: 1. Your weight-bearing status is - weight bearing as tolerated of right leg. 2. Remember to use a walker or crutches at all times for balance and protection. Your physical therapist may progress you to using a cane when appropriate. 3. Flexion AND extension are important to work on at home. You should NOT place a pillow under youroperative knee. To help with extension you can place a pillow under your heel or lower leg or placed lengthwise along the operative leg. Again DO NOT place a pillow under the operated knee for comfort. Anticoagulation: Aspirin - You are being discharged on enteric-coated Aspirin 81 mg by mouth twice a day. Continue this for 30 days after surgery. After your dose on 07/16/2017 stop the Aspirin, unless you are told otherwise by your Orthopedic surgeon. Take this medication with food or large amounts(240 mL) of water or milk to minimize GI irritation. Diet: Resume your usual diet but increase your intake of fluids and fiber while you are on narcoticpain meds to prevent constipation. Driving: None until you are cleared to do so by your Orthopedic surgeon. You should not drive whileyou are on narcotic pain meds as they can affect your judgment and reaction time. Call your surgeonwith any questions/concerns. Medications: 1. The pain medication you are on can cause constipation so increase your intake of fluids and fiber while you are on them. The stool softener, Pericolace, that has been prescribed can also be taken to facilitate a bowel movement. You can also take an kvjt-nud-mghxryo medication, Miralax if needed to combat constipation. 2. If you need a renewal on your narcotic pain medication, you need to give the Orthopedic clinic enough time to process your request. This can take up to three days, so plan accordingly. 3. Continue acetaminophen (Tylenol) 1,000mg every 8 hours around the clock until 06/25/2017 (for ten days after your surgery). This can be effective in controlling pain along with your other medications. After that you can take Tylenol as needed per package insert. Do not take more than 3,000mg of acetaminophen in a 24 hour period. 4. You have been discharged on a short acting narcotic, oxycodone. You will be on this medication for a limited period of time only. Take the smallest dose possible to control your pain. As your painimproves take smaller, less frequent doses. You may break the tablet to achieve a smaller dose. 5. You are being discharged on gabapentin (Neurontin), a non-narcotic medication that will help with your pain at night and allow you to sleep better. Take this at night for the next 4 weeks. Shower (internal sutures): 1. You can shower but remember your activity limitations and always have a chair available for balance and protection. DO NOT submerge the dressing/incision. 2. (Mepilex) Do not let water run over the operative dressing. If it becomes wet lightly pat the dressing dry. DO NOT submerge the incision. When this operative dressing is removed you can let water gently run over the incision. Wound (Mepilex): 1. You do NOT have any external giulia or sutures in place. Your sutures are internal and will be absorbed over time. 2. You have a Mepilex dressing in place. Do not lift the edge of the Mepilex dressing to inspect the incision, it will not re-adhere. Remove your operative dressing 7 days after your surgery (06/22/17). When it is removed you can leave the incision open to air or cover it with a light dressing. 3. If you have lots of drainage when you get home (and it is before 06/22), remove the operative dressing and replace it with dry sterile gauze. Continue with daily dressing changes (and as needed) until the drainage stops, then remove the dressing and leave the incision open to air or lightly covered. Misc: Remember that ICE and elevation are very important after surgery to help decrease swelling and control pain. Use ICE for 20-30 minutes at a time and keep your leg elevated as much as possible. Call your doctor ([phone]) if you develop: 1. Fever greater than 100.5 2. Severe nausea or vomiting 3. Increasing pain that is not controlled by pain medications 4. Increasing redness, swelling, or drainage from incisions 5. Change in sensation FOLLOW-UP APPOINTMENTS: 1. You will have follow-up appointments at [facility] as indicated below in Future Appointment and Orders. 2. You will need to have x-rays prior to your follow-up appointment on 07/15/2017. Please come to Radiology, desk 3T, 1 hour BEFORE that appointment for those x-rays. Future Appointments Date Time Provider Department Center 07/15/2017 9:15 AM [facility] DX ROOM 2 [facility] 07/15/2017 10:10 AM Dane Chan MD [facility] [address] [place] [address] If you have questions or concerns: Friday through Friday, 8 AM - 5 PM, please call Dane Barakat MD's office at . If it is after 5 PM, the weekend, or holidays, please call and ask to speak with theOrthopedic resident on-call. Future Appointments and Orders Future Appointments Provider Department Dept Phone 07/15/2017 10:10 AM Dane Chan MD [facility] at [place] [phone] Primary Care Provider: Leticia Valero, MESERET [phone] Discharge References/Attachments None documented in this encounter Discharge Instructions * Discharge Instructions* Christian Espinoza MD - 06/17/2017 9:19 AM EST Activity: 1. Your weight-bearing status is - weight bearing as tolerated of right leg. 2. Remember to use a walker or crutches at all times for balance and protection. Your physical therapist may progress you to using a cane when appropriate. 3. Flexion AND extension are important to work on at home. You should NOT place a pillow under youroperative knee. To help with extension you can place a pillow under your heel or lower leg or placed lengthwise along the operative leg. Again DO NOT place a pillow under the operated knee for comfort. Anticoagulation: Aspirin - You are being discharged on enteric-coated Aspirin 81 mg by mouth twice a day. Continue this for 30 days after surgery. After your dose on 07/16/2017 stop the Aspirin, unless you are told otherwise by your Orthopedic surgeon. Take this medication with food or large amounts(240 mL) of water or milk to minimize GI irritation. Diet: Resume your usual diet but increase your intake of fluids and fiber while you are on narcoticpain meds to prevent constipation. Driving: None until you are cleared to do so by your Orthopedic surgeon. You should not drive whileyou are on narcotic pain meds as they can affect your judgment and reaction time. Call your surgeonwith any questions/concerns. Medications: 1. The pain medication you are on can cause constipation so increase your intake of fluids and fiber while you are on them. The stool softener, Pericolace, that has been prescribed can also be taken to facilitate a bowel movement. You can also take an csem-odk-uvtudhj medication, Miralax if needed to combat constipation. 2. If you need a renewal on your narcotic pain medication, you need to give the Orthopedic clinic enough time to process your request. This can take up to three days, so plan accordingly. 3. Continue acetaminophen (Tylenol) 1,000mg every 8 hours around the clock until 06/25/2017 (for ten days after your surgery). This can be effective in controlling pain along with your other medications. After that you can take Tylenol as needed per package insert. Do not take more than 3,000mg of acetaminophen in a 24 hour period. 4. You have been discharged on a short acting narcotic, oxycodone. You will be on this medication for a limited period of time only. Take the smallest dose possible to control your pain. As your painimproves take smaller, less frequent doses. You may break the tablet to achieve a smaller dose. 5. You are being discharged on gabapentin (Neurontin), a non-narcotic medication that will help with your pain at night and allow you to sleep better. Take this at night for the next 4 weeks. Shower (internal sutures): 1. You can shower but remember your activity limitations and always have a chair available for balance and protection. DO NOT submerge the dressing/incision. 2. (Mepilex) Do not let water run over the operative dressing. If it becomes wet lightly pat the dressing dry. DO NOT submerge the incision. When this operative dressing is removed you can let water gently run over the incision. Wound (Mepilex): 1. You do NOT have any external giulia or sutures in place. Your sutures are internal and will be absorbed over time. 2. You have a Mepilex dressing in place. Do not lift the edge of the Mepilex dressing to inspect the incision, it will not re-adhere. Remove your operative dressing 7 days after your surgery (06/22/17). When it is removed you can leave the incision open to air or cover it with a light dressing. 3. If you have lots of drainage when you get home (and it is before 06/22), remove the operative dressing and replace it with dry sterile gauze. Continue with daily dressing changes (and as needed) until the drainage stops, then remove the dressing and leave the incision open to air or lightly covered. Misc: Remember that ICE and elevation are very important after surgery to help decrease swelling and control pain. Use ICE for 20-30 minutes at a time and keep your leg elevated as much as possible. Call your doctor ([phone]) if you develop: 1. Fever greater than 100.5 2. Severe nausea or vomiting 3. Increasing pain that is not controlled by pain medications 4. Increasing redness, swelling, or drainage from incisions 5. Change in sensation FOLLOW-UP APPOINTMENTS: 1. You will have follow-up appointments at [facility] as indicated below in Future Appointment and Orders. 2. You will need to have x-rays prior to your follow-up appointment on 07/15/2017. Please come to Radiology, desk 3T, 1 hour BEFORE that appointment for those x-rays. Future Appointments Date Time Provider Department Center 07/15/2017 9:15 AM [facility] DX ROOM 2 [facility] 07/15/2017 10:10 AM Dane Chan MD [facility] [place] [facility] If you have questions or concerns: Friday through Friday, 8 AM - 5 PM, please call Dane Barakat MD's office at . If it is after 5 PM, the weekend, or holidays, please call and ask to speak with theOrthopedic resident on-call. documented in this encounter Medications at Time of Discharge Medication Sig Dispensed Refills Start Date End Date acetaminophen (TYLENOL) 500 mg Tablet Take 2 tablets by mouth every 8 hours for 9 days. Around the clock until 06/26/17, and then as needed. DO NOT EXCEED 3000 mg tylenol in a 24 hour period. 54 tablet 06/17/2017 06/26/2017 aspirin 81 mg Tablet, Delayed Release (E.C.) Take 1 tablet by mouth 2 times daily for 30 days. 60 tablet 06/17/2017 07/17/2017 gabapentin (NEURONTIN) 300 mg Capsule Take 1 capsule by mouth nightly for 28 days. 28 capsule 06/17/2017 07/15/2017 oxyCODONE (ROXICODONE) 5 mg Tablet Take 1 tablet by mouth every 4 hours as needed for Pain. Take the smallest dose possible to control your pain. As your pain improves take smaller, less frequent doses. You may break the tablet to achieve a smaller dose. 60 tablet 06/17/2017 06/23/2017 senna-docusate (PERICOLACE) 8.6-50 mg Tablet Take 2 tablets by mouth 2 times daily. Take to maintain normal bowel pattern while taking narcotic pain medication. 06/17/2017 07/21/2017 polyethylene glycol (MIRALAX) 17 gram Powder in Packet Take 17 g by mouth 2 times daily. Take to maintain normal bowel pattern while taking narcotic pain medication. 06/17/2017 07/21/2017 diphenhydrAMINE (BENADRYL) 25 mg Capsule Take 25 mg by mouth every 6 hours as needed for Itching. 03/07/2020 documented as of this encounter Progress Notes * Thao Burleson RN - 06/17/2017 12:15 PM EST Patient discharged to home. IV removed, site benign. My assessment remains unchanged from my previous assessment. Patient denies chest pain and shortness of breath. Discussed pain management with patient, pain tolerable. Patient medicated prior to discharge. Patient has all belongings. Patient received discharge summary and prescriptions. These were reviewed. All questions answered. Patient encouraged to call with questions or concerns. Patient discharged to home with family. * Zack Valerio - 06/17/2017 6:36 AM EST Orthopaedic Surgery Daily Progress Note 42 y.o. male admitted 06/16/2017 for the surgery below: Surgery: Right Total Knee Arthroplasty Revision for instability Subjective: No acute events overnight. Spontaneously voiding. Has not ambulated. The patient is doing well. Pain is under control. Denies chest pain, shortness of breath, nausea and vomiting. Objective: Temp: [36.5 ??C (97.7 ??F)-37.1 ??C (98.8 ??F)] Heart Rate: [49-79] Resp: [12-21] BP: (108-144)/(64-90) SpO2: [92 %-100 %] Heart Rate from SPO2: [49 bpm-83 bpm] I/O last 3 completed shifts: In: 3050 [P.O.:600; I.V.:2400; IV Piggyback:50] Out: - I/O this shift: In: 940 [P.O.:240; I.V.:700] Out: 2225 [Urine:2225] Physical Exam: General: Well appearing, no acute distress Abdomen: soft, non-tender, non-distended RLE Exam: brisk capillary refill distally Sensation intact to light touch to DP/SP/T nerve distributions Motor intact to ADF/APF/EHL Dressing c/d/i + straight leg raise Laboratory Recent Labs 06/17/17 0419 WBC 20.0* HGB 13.4* HCT 39.8* PLATELET 239 NA 140 K 4.2 CL 105 CO2 22 BUN 10 CREATININE 0.85 Assessment: 42 y.o. male doing well post-op s/p left TKA revision for instability with polyethyleneexchange.. Expected post-operative acute blood loss anemia. Plan for mobilization and pain control,anticipate d/c to home today. Plan: ?? Mobilize with Physical Therapy - Weight bearing as tolerated ?? Mepilex dressing in place, leave for 7 days, then change daily only as needed with dry sterile dressing. ?? SubQ monocryl closure ?? Antibiotics x 24 hours ?? DVT Prophalaxis: ASA ?? Discharge Planning: Home vs rehab per PT final recommendations. ?? Follow up in 4-6 weeks with AP/Lateral/Byron/Standing Alignment views of Knee Future Appointments Date Time Provider Department Center 07/15/2017 9:15 AM [facility] DX ROOM 2 [facility] 07/15/2017 10:10 AM Dane Chan MD [facility] [address] [place] [address] CLIN * Damaris Darling RN - 06/16/2017 9:24 PM EST Patient arrived to floor via bed from PACU. Patient A&O x 3, lungs clear, heart rate regular. Patient has hypoactive bowel sounds and stats their last BM was on 06/16. Patient has a dressing to right knee, noted to be clean dry and intact. Patient has an IV of NS infusing at 100 ml/hr in to their left arm. Patient states their pain level is 6/10. Patient denies chest pain, shortness of breath, numbness or tingling. Patient oriented to room, call ottoniel IS. RN will monitor patient. * Kaia Castillo RN - 06/16/2017 7:46 PM EST 1914 - report from JOSE DE JESUS King and care resumed. Monitor alarms set per pacu protocols. Pt identifiedwith id band and pt verbalized. Pt sitting up - alert and oriented x 4. Perrl, clear voice. Waitingon room to be cleaned. Spinal fully resolved - pt able to move legs and lift hips. sats good on room air and lungs clear. Vss. ivf infusing via left arm piv. bilat venodynes on. Skin intact - warm and dry, afebrile, pale pink. Right knee foam dressing cdi - cryocuff to right knee - good distal cms to right foot. Pt denies nausea, kimberlee plenty fluids. Bladder rescanned for 999 cc , pt unable to void. striaght cathed at 1930 for 1130 cc clear yellow urine, pt kimberlee well. dtv in 4 hours. Family in waiting room. Pt has glasses on but family has rest of belongings. Pt in bed sitting high up - waiting on room to be cleaned - ready for floor. 2009 - report called to JOSE DE JESUS Prakash and pt readied for transfer to [facility] via bed. Room is cleaning. * Christian Espinoza MD - 06/16/2017 7:07 PM EST Orthopaedic Surgery Post-Op Check Note Surgery/Issue: right revision TKA polyswap Attending: Bernadette Date of surgery: 06/16/2017 Subjective/Events: Patient doing well. Eating crackers and peanut butter in PACU waiting for his room on the floor to be cleaned. He states that he was told it was going to be a 3 day hospital stay. I told him that is unlikely, but we will evaluate how he is doing tomorrow with PT/OT. Denies CP, SOB, nausea, vomiting, numbness/weakness. Pain well controlled. Objective: Temp: [36.5 ??C (97.7 ??F)-36.6 ??C (97.9 ??F)] Heart Rate: [49-79] Resp: [12-21] BP: (115-144)/(69-90) Intake/Output Summary (Last 24 hours) at 06/16/17 1907 Last data filed at 06/16/17 1800 Gross per 24 hour Intake 3000 ml Output 0 ml Net 3000 ml Lab Results Component Value Date NA 142 05/29/2017 K 4.1 05/29/2017 CL 101 05/29/2017 CO2 26 05/29/2017 BUN 12 05/29/2017 CREATININE 1.01 05/29/2017 GLUCOSE 70 05/29/2017 CALCIUM 9.6 05/29/2017 Lab Results Component Value Date WBC 8.1 05/29/2017 HGB 15.9 05/29/2017 HCT 47.7 05/29/2017 MCV 89.8 05/29/2017 PLATELET 384 (H) 05/29/2017 Lab Results Component Value Date INR 1.0 05/29/2017 Exam: General: NAD, awake/alert CV: RRR Resp: Breathing comfortably, lungs CTAB RLE: Dressing c/d/i. In cryocuff. Motor intact to EHL, FHL, TA. Sensation intact in foot/calf. Brisk capillary refill distally. A/P: 42 y.o. male POD#0 s/p right revision TKA polyswap, progressing well with stable vitals. Activity: WBAT RLE Closure: Resorbable sutures Dressing: mepielx sivlver Anticoagulation: ASA 81mg BID for 30 days Antibiotics: ancef Dispo:home when clears PT/OT Follow-up: See below Christian Espinoza MD Orthopaedic Surgery Pager [phone] Future Appointments Date Time Provider Department Center 07/15/2017 9:15 AM [facility] DX ROOM 2 [facility] 07/15/2017 10:10 AM Dane Chan MD [facility] * Marge Blancas RN - 06/16/2017 2:51 PM EST S/p revision of knee replacement Turned side to side 1430 C/o pain as spinal wearing off given po Oxycodone with Fentanyl IV for 8 pain Visited by 1530 Awake and watching TV Pain is much improved VSS Awaiting room Stable eating and drinking without nausea documented in this encounter H&P Notes * Dane Chan MD - 06/16/2017 10:37 AM EST The patient's history and physical exam have been reviewed. There has been no interval change from that of the pre-operative history and physical exam performed within the last 30 days. This patient is undergoing an orthopaedic surgical procedure. We will utilize nonpharmacological modalities to help with pain, however, this patient will require narcotic pain medication to treat acute, post-surgical, pain. The patient will be instructed to wean from these medications as soon as reasonably possible. The Patient has read, signed and understands the Acute Opioid Therapy Informed Consent. The Prescription Drug monitoring website has been queried and and this query recorded in the electronic medical record. Opioid PDMP 06/03/2017 [place] PDMP Query Date 06/03/2017 Some recent data might be hidden I spoke with and examined the patient on the date of the primary author's note, prior to proceedingto the operating room. I agree with the primary author's assessment and plan. I reviewed the risks,benefits, alternatives to, and recovery from the proposed procedure. I confirmed the correct operative site. The patient expressed understanding and wished to proceed with operative treatment. Dane Chan MD MS Orthopaedic Surgery Attending * Dane Chan MD - 06/15/2017 4:51 PM EST Patient Name: Yvan Maddox Patient Age: 42 y.o. Birthdate: 1975 Admit date: (Not on file) Attending Physician: Dane Chan MD Chief complaint: Greater than a year status post right total knee arthroplasty with feelings of instability, difficulty going up and down stairs, swelling and discomfort. History of present illness: Yvan Maddox is a 42 y.o. year-old male who over the past 6 months hasdeveloped instability in his right knee. I examined him the last time he had an appointment with Landy Martins. At that point, he did seem to have flexion instability, which on review of his notes, is new from his first 2 postoperative appointments. He describes the symptoms above, which are unrelievedwith the brace, and are extremely bothersome for him. I talked with Mr. Maddox on the phone June 15, 2017 as he cancelled his preoperative appointment with me and I had not seen him since his last appointment with Landy Martins. I confirmed that he had been tobacco free for over a week, though he was smoking lightly before: 1 pack per week up until the point that he quit completely a week ago. Whenwe had last talked in clinic, we had discussed the possibility that a simple polyethylene exchange would help with his symptoms, though a full revision was a possibility. Last night on the phone, andagain today, I stressed the fact that while poly exchange is a possibility, he very may need a complete total knee revision arthroplasty. We discussed the difference in these 2 operations, the difference in recovery, and the potential for increased complications from a full revision. Despite his relatively good objective scores, and his decrease in pain since before surgery, the knee is a significant source of discomfort and instability for him. His inflammatory markers are very reassuring thatthis does not represent infection. Past medical history: Patient Active Problem List Diagnosis Date Noted ??? Knee instability 05/20/2017 ??? Status post total knee replacement, right with Dr. Chan (02/22/16) 02/22/2016 ??? History of nasal surgery 11/13/2015 Medications: No current facility-administered medications for this encounter. ??? acetaminophen (TYLENOL) 500 mg Tablet ??? diphenhydrAMINE (BENADRYL) 25 mg Capsule Allergies: Allergies Allergen Reactions ??? Hay [Grass Pollen[place], Standard] Hives Social history: Social History Substance Use Topics ??? Smoking status: Current Every Day Smoker Packs/day: 0.25 Types: Cigarettes ??? Smokeless tobacco: Former User Types: Chew Comment: a pack a week ??? Alcohol use No Review of systems: No chest pain or shortness of breath No fevers, night sweats or chills Vital signs: Temp: -- Physical Exam: NAD R knee: No effusion Painless ROM from 5 degrees of hyper extension to 110 flexion In full extension: 5 mm medial gap with valgus force with solid end point, 1 cm gap with varus force with solid end point In 45 and 90 degrees of flexion this amount of instability persists but does not seem to increase No other crepitus, instability, popping Incision is well healed Imaging: Personal review of the patient's imaging reveals: Reviewed again. Tibial slope and plate alignment appears appropriate. No signs loosening Assessment: 42 y.o. year-old male with global instability of his R TKA Plan: I talked with Mr. Maddox in detail about his symptoms. He does appear that his symptoms are coming from play in the coronal plane in his knee. Based on my exam today, it appears that this is global instability, both in extension, 45, and 90?? of flexion. There is a small amount of medial play,with a solid endpoint. There is more lateral plate, which is to be expected. We discussed the nature of the clunking he is feeling and I confirmed that indeed this does appear to be from the separation between the femoral component and the tibial polyethylene. We discussed the fact that some degreeof play here is normal, and that what he is feeling is not pathologic. However, given the fact thathe has some plating medially, and this instability persists through flexion, increasing the size ofthe polyethylene may be helpful in relieving that medial plate and decreasing the lateral plate. Wediscussed the fact that if his fixation and alignment of his metal components appears appropriate, upsizing his polyethylene will not remove some degree of lateral plate, which is normal in this situation. We discussed the risks and benefits of the procedure, including the possibility that he wouldneed a full revision of both his femoral and tibial component. We looked at Dr. Espinosa's risk calculator together and went over the risks line by line. He accepted these risks. We discussed the risks of the procedure, including but not limited to bleeding, infection, damage to nerves and vessels, need for reoperation, pain, instability, fracture, blood clots, cardiopulmonary complications, upto and including the risk of . We discussed the fact that his risks with a revision arthroplasty of any sort or higher than the risk with a primary arthroplasty. We discussed the elevated risk if he continues to smoke postoperatively, and he is adamant that he can quit for the next 3 months. He feels very strongly that he would like to move forward with surgery if it can help to some degree,and acknowledges his decreased pain and good objective knee scores. He signed consent with me today. We will plan on intraoperative evaluation, potential polyethylene swap with a larger poly-, and potential full revision. Follow up: For OR today This plan was discussed with the patient and they are in agreement. All of the patient's questions were answered. The above dictation was made with voice recogonition software documented in this encounter Miscellaneous Notes * Plan of Care - Jace Monzon, PT - 06/17/2017 12:33 PM EST Problem: Patient Care Overview Goal: Plan of Care Review Outcome: Ongoing (Interventions Implemented as Appropriate) 06/17/17 1510 Coping/Psychosocial Plan Of Care Reviewed With patient;spouse Physical Therapy Note Evaluation Pertinent History of Current Problem: 42 y.o. male doing well post-op s/p left TKA revision for instability with polyethylene exchange. Original TKA 02/2016. Past Medical History: Active Non-Hospital Problems Diagnosis ??? Status post total knee replacement, right with Dr. Chan (02/22/16) ??? History of nasal surgery Precautions/Restrictions: fall Precautions Comments: WBAT RLE Living Environment Comment: Pt lives with his SO in a multi-level home with 2 steps with rail to main living area. Pt has a cane, walker and shower chair. Prior Functional Level Comment: Pt is independent without an AD. 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 Assessment: Pt seen for PT evaluation and therapeutic exercise. Pt presents to PT with pain, decreased strength, decreased ROM and impaired balance which limits his functional mobility and activity tolerance. Patient demonstrated ability to perform bed mobility, transfers, ambulation and stairs with conditional independence/supervision with use of AD. Patient reported increased pain with mobility, but tolerable. Pt will have his spouse available as needed at discharge, and from a PT perspectiveis safe to discharge home once medically ready. Please see the Rehab Evaluation Summaries section for detailed objective data and specifics of today's session. Mobility Recommendations: Pt to utilize FWW and supervision for ambulation with nursing. Anticipated Physical Therapy Frequency: evaluation only Anticipated Equipment Needs at Discharge: (Has necessary equipment) Anticipated Discharge Disposition: home with assist, home with outpatient services (has outpatient appointment for Friday) Pager: [phone] JACE MONZON, PT 06/17/2017 Physical Therapy Rehabilitation Department 2017 PT Evaluation Code Rationale: ?? Diagnosis & Pertinent Co-Morbidities, personal factors, and present illness affecting Plan of Care: Patient Active Problem List Diagnosis Code ??? History of nasal surgery Z98.890 ??? Status post total knee replacement, right with Dr. Chan (02/22/16) Z96.651 ??? s/p R TKA revision for instability, polyswap 06/16/17 (Bernadette) M25.369 Additional personal factors or co-morbidities that impact plan: ... ?? Total # of Factors: 0 1-2 3+ x ?? Examination of body system impairments, functional limitations and behaviors, and/or participation restrictions. Addressing 1-2 elements Addressing 3 + elements x Addressing 4 + elements ?? Clinical presentation: See assessment above. Stable/Uncomplicated Evolving/Fluctuating Symptoms Unstable/Unpredictable x ?? Clinical decision making of moderate complexity based on pt's functional performance as outlinedin this evaluation. G-Code: Mobility Status Modifier CURRENT CI - At least 1 percent but less than 20 percent impaired, limited or restricted PROJECTED CI - At least 1 percent but less than 20 percent impaired, limited or restricted DISCHARGE CI - At least 1 percent but less than 20 percent impaired, limited or restricted G Code Rationale: This G-Code and these disability modifiers were selected as the primary therapy goal based upon the patient's evaluation including the following functional test(s) AM-PAC - ActivityMeasure for Post-Acute Care. Current ability measures, co-morbidities and clinical judgement were also used to select the disability modifier. Mr. Maddox's current G-Code functional level is 11% impaired based upon 6 clicks, initial evaluation and clinical judgement. * Plan of Care - Damaris Darling RN - 06/17/2017 4:02 AM EST Problem: Patient Care Overview Goal: Plan of Care Review Outcome: Ongoing (Interventions Implemented as Appropriate) 06/17/17358 Coping/Psychosocial Plan Of Care Reviewed With patient Plan of Care Review Progress progress toward functional goals as expected OUTCOME EVALUATION NOTE: OUTCOME SUMMARY: Patient arrived from PACU at 2129, progressing towards d/c goals appropriately at this time. Patients pain adequately controlled, taking PRN oxycodone to good effect. Pt awake in bed throughout night, VSS, no change in NV checks. Pt able to void adequately in urinal with low PVRs, see doc flowsheets. Tolerating PO fluids. Dressing c/d/i, utilizing cryocuff appropriately. Will continue to monitor and help patient reach d/c goals. PLAN MOVING FORWARD: Pain control Mobilize D/c planning INDIVIDUALIZED FALL PREVENTION: Patient is currently a high risk to Fall. Patient educated on bed/chair alarm, demonstrates proper use of call alcazar and verbalizes understanding of fall preventions implemented. Patient-specific fall risk factors per assessment: [current deficits]: Recent Procedure, Pain, Medications, Hospital Environment. Assistance [level of assistance required for transfers and ambulation]: Not OOB yet Supervision [direct monitoring required during toileting and ADLs]: Hands-on assistance with ADL's Surveillance [continuous indirect monitoring]: Masimo, Purposeful Rounding, Bedside Report Patient-specific fall prevention interventions for sensory deficits provided, if applicable: [X] N/A CPG GOAL OUTCOME EVALUATION: Goal: Individualization & Mutuality Outcome: Ongoing (Interventions Implemented as Appropriate) 06/17/17358 Individualization Patient Specific Goals Pain control, mobilize Patient Specific Interventions PRN pain meds given Goal: Fall Prevention-Safe Patient Handling Outcome: Ongoing (Interventions Implemented as Appropriate) 06/16/17212906/17/17358 Daily Care Interventions Self-Care Promotion -- independence encouraged;BADL personal routines maintained;safe use of adaptive equipment encouraged Frye Fall Risk History of Falling 0 -- Secondary Diagnosis 15 -- Ambulatory Aids 15 -- Intravenous Therapy/Heparin/Saline Lock 20 -- Gait/Transferring 10 -- Mental Status 0 -- Score 60 -- OTHER Frye Fall Risk High -- Restraint Interventions Safety Promotion/Fall Prevention activity supervised;fall prevention program maintained;nonskid shoes/slippers when out of bed;safety round/check completed -- Positioning Body Position supine, head elevated -- Activity Activity Type activity adjusted per tolerance -- Goal: Infection Control Outcome: Ongoing (Interventions Implemented as Appropriate) 06/16/172129 Safety Interventions Isolation Precautions standard precautions maintained Infection Prevention rest/sleep promoted;single patient room provided;barrier precautions utilized Coping Strategies Supportive Measures active listening utilized;counseling provided;decision- making supported Goal: Interdisciplinary Rounds/Family Conf Outcome: Ongoing (Interventions Implemented as Appropriate) 06/17/179 Interdisciplinary Rounds/Family Conf Participants nursing;patient Problem: Knee Arthroplasty (Total, Partial) (Adult) Goal: Signs and Symptoms of Listed Potential Problems Will be Absent, Minimized or Managed (Knee Arthroplasty) Signs and symptoms of listed potential problems will be absent, minimized or managed by discharge/transition of care (reference Knee Arthroplasty (Total, Partial) (Adult) CPG). Outcome: Ongoing (Interventions Implemented as Appropriate) 06/17/17358 Knee Arthroplasty (Total, Partial) Problems Assessed (Knee Arthroplasty) all Problems Present (Knee Arthroplasty) pain * Op Note - Dane Chan MD - 06/16/2017 12:21 PM EST [facility] [place] Operative Note Patient Name: Yvan Maddox : [id number] MR#: [id number] Case Date: 06/16/2017 Surgeon: Surgeon(s) and Role: * Dane Chan MD - Primary * Zack Valerio MD Preoperative diagnosis: Knee instability s/p right total knee arthroplasty Postoperative diagnosis: Same Procedure(s) (LRB): @TOTAL KNEE REVISION ARTHROPLASTY, ONE COMPONENT (WRVU 21.12) (Right) MODIFIER: ATTUNE STABILIZED FIXED PLATFORM DEPUY (Right) Anesthesia: Spinal Estimated Blood Loss: 10 cc Specimens removed during surgery: none Drains: Surgical Closure: Primary Closure - closure of ALL tissue levels during the original surgery regardless of wires, wickes, drains, or other devices extruding through the incision Disposition: awakened from anesthesia, extubated and taken to the recovery room in a stable condition, having suffered no apparent untoward event. Condition: doing well without problems (Please see the Surgical Encounter Summary for any Implant and Specimen details pertinent to this patient.) HPI/Surgical Indications: The patient is a 42-year-old gentleman who is status post right total knee arthroplasty with instability and hyperextension. After thorough discussion of the risks and benefits, he elected to move forward with right total knee revision arthroplasty. Procedure Description: After being identified, marked, and having preoperative consent confirmed inthe preoperative holding area, the patient proceeded to the operative theater. A preoperative timeout was held the patient received preoperative antibiotics. Spinal anesthesia was induced. She was placed supine on the operating table with all bony prominences well-padded. High right thigh tourniquet was placed. His right leg was prepped and draped in a sterile fashion. His leg was elevated, exsanguinated, and the tourniquet inflated to 250 mmHg weight stayed for 1 hour. We marked out his previous incision and made a midline incision along the same tract. We dissected down to the capsule. Perform limited medial and lateral flap elevations. We aspirated the right knee, which produced 15 cc of straw-colored fluid. This was sent for cell count. The cell count came back at 124 cells. Given this low count, we declined to send the aspirate for culture. We identified the quadriceps tendon. Leaving a third of the tendon on the medial flap, we performed a medial parapatellar arthrotomy. We perform a limited medial peel. We performed a partial synovectomy inferior to the patella, and around the patellar button. We then checked the stability of the knee. The knee appea red to hyperextend 5-8??. There was instability both on the medial side with valgus force and on the lateral side with varus force. This appeared to be symmetric throughout a full range of motion from extension to greater than 90?? of flexion. We flexed the knee and remove the polyethylene. We checked the stability of the metal implants. Both the femur and the tibia appeared well fixed. There is no fluid wave with compression of the implants, and light tapping with a mallet did not dislodge them. The alignment of the tibial baseplate appears appropriate. The femur appeared rotated properly. Using trial polyethylene's, we upsized to an 8 mm polyethylene. This improved the stability significantly. The knee came out to full extension but did not hyperextend, had no medial plate with valgus force, and less than 5 mm of lateral plate with varus force. The stability was constant from full extension to greater than 90?? of flexion. There is no longer contact between the polyethylene insert and the anterior femur when fully extended. We removed the trial polyethylene. We irrigated with a dilute Betadine solution, which was allowed to sit for 3 minutes, then irrigated copiously with pulsatile normal saline with bacitracin. We opened the final polyethylene and impacted into place. We checked range of motion again and found excellent stability as with the trial. We irrigated again. We closed the arthrotomy with #1 Vicryls. We checked stability again and found the knee came to full extension and 100?? of flexion. We irrigated again and injected the soft tissues with local anesthetic. The deep dermal layer was closed with Vicryls. The skin was closed with a running Monocryl and skin glue. Dry sterile dressing was placed. The patient's anesthesia was reversed he was discharged to the PACU in stable condition. Implant Name Type Inv. Item Serial No. Automated Cutting Machine Operator Lot No. LRB No. Used Action INSER,ATTUNE,PS,FB,SZ7,8MM ([id number]) (AUTOREQ) - [id number] IMPLANTS INSER,ATTUNE,PS,FB,SZ7,8MM ([id number]) (AUTOREQ) [facility] - [id number] Right 1 Implanted Infection Bundle used? N/A Attestation: Case Date: 06/16/2017 I was present and I participated during the entire procedure (does not need to include opening and closing). DANE CHAN MD 06/16/2017 documented in this encounter Plan of Treatment Not on file documented as of this encounter Procedures Procedure Name Priority Date/Time Associated Diagnosis Comments HEMOGRAM Routine 06/17/2017 4:19 AM EST DIFFERENTIAL, AUTOMATED Routine 06/17/2017 4:19 AM EST CBC (WITH DIFF) Routine 06/17/2017 4:19 AM EST BASIC METABOLIC PANEL Routine 06/17/2017 4:19 AM EST CELL COUNT BODY FLUID STAT 06/16/2017 11:36 AM EST MODIFIER: ATTUNE STABILIZED FIXED PLATFORM DEPUY 06/16/2017 10:59 AM EST Knee instability @TOTAL KNEE REVISION ARTHROPLASTY, ONE COMPONENT (WRVU 21.12) 06/16/2017 10:59 AM EST Knee instability TOTAL KNEE REVISION ARTHROPLASTY, ONE COMPONENT Routine 06/16/2017 8:20 AM EST IMPLANTABLE DEVICES SCAN 06/16/2017 12:00 AM EST COMPUTER SYSTEMS ADMINISTRATOR SCAN 06/16/2017 12:00 AM EST documented in this encounter Results * (ABNORMAL) Differential, Automated (06/17/2017 4:19 AM EST) Neutrophil % 85.8 % [facility] Neutrophil Absolute 17.15(H) 1.70 - 6.10 x10(3)/mc L [facility] Lymph % 8.7 % [facility] Lymphocytes Abs 1.7 0.9 - 3.2 x10(3)/mc L [facility] Monocyte % 4.7 % [facility] Monocyte Abs 0.9 0.3 - 0.9 x10(3)/mc L [facility] Eos % 0.0 % [facility] Eosinophils Abs 0.0 0.0 - 0.4 x10(3)/mc L [facility] Basophil % 0.2 % [facility] Baso Absolute 0.0 0.0 - 0.1 x10(3)/mc L [facility] Immature Gran % 0.60 % [facility] Comment: Immature granulocytes(IG's)percentage and absolute count will include metamyelocytes, myelocytes, and promyelocytes. Blood smears from CBCs yielding IG's will be scanned manually for concordance. If this scan disagrees with the automated IG or if promyelocytes are noted, a manual differential will be performed. Immature Gran Absolute 0.12(H) 0.00 - 0.04 x10(3)/mc L [facility] Blood specimen (specimen) 06/17/2017 4:19 AM EST 06/17/2017 4:35 AM EST Narrative Resulting Agency Comment Spec In Lab Dane Chan MD HEMATOLOGY ORDERABLE S [facility] [place] [address] * (ABNORMAL) Hemogram (06/17/2017 4:19 AM EST) White Blood Cell 20.0(H) 4.0 - 9.5 x10(3)/mc L [facility] Red Blood Cell 4.49(L) 4.58 - 5.54 x10(6)/mc L [facility] Hemoglobin 13.4(L) 13.7 - 16.5 gm/dL [facility] Hematocrit 39.8(L) 40.5 - 48.5 % [facility] Mean Cell Volume 88.6 82.9 - 93.[address] [facility] Mean Cell Hemoglobin 29.8 27.5 - 32.1 pg [facility] Mean Cell Hemoglobin Concentration 33.7 32.0 - 35.7 gm/dL [facility] Platelet 239 145 - 357 x10(3)/mc L [facility] RDW Standard Deviation 44.4 36.0 - 45.[address] [facility] RDW coefficient of variation 13.6 11.4 - 13.8 % [facility] Mean Platelet Volume 10.5 7.6 - 12.[address] [facility] NRBC% auto 0.0 % [facility] NRBC Absolute 0.000 0.000 - 0.000 x10(3)/mc L [facility] Blood specimen (specimen) 06/17/2017 4:19 AM EST 06/17/2017 4:35 AM EST Narrative Resulting Agency Comment Spec In Lab Dane Chan MD HEMATOLOGY ORDERABLE S [facility] [place] [address] * Basic Metabolic Panel (non-fasting) (06/17/2017 4:19 AM EST) Glucose 103 65 - 199 mg/dL [facility] Comment:Diabetes: >=200 mg/d L plus symptoms Blood Urea Nitrogen 10 10 - 20 mg/dL [facility] Creatinine 0.85 0.80 - 1.50 mg/dL [facility] Sodium 140 135 - 145 mmol/L [facility] Potassium 4.2 3.5 - 5.0 mmol/L [facility] Comment: Please note: ??Patients with WBC >100,000 may have falsely elevated Potassium levels. ??For accurate Potassium quantification in these patients send serum separator tube (gold top) for subsequent determinations. ??Contact the Clinical Chemistry Laboratory if there are any questions. Chloride 105 98 - 107 mmol/L [facility] Carbon Dioxide 22 22 - 31 mmol/L [facility] Anion Gap 13 5 - 15 mmol/L [facility] Calcium 8.7 8.5 - 10.5 mg/dL [facility] Est Glomerular Filtration Rate >60 >=60 [facility] Comment: The reported eGFR should be multiplied by 1.2 for patients. The MDRD is not an appropriate measure of renal function for patients with body mass extremes or in patients with acute kidney failure. [email or web address] Blood specimen (specimen) 06/17/2017 4:19 AM EST 06/17/2017 4:35 AM EST Narrative Resulting Agency Comment Spec In Lab Daen Chan [place] [address] * Cell Count Body Fluid Knee, Right (06/16/2017 11:36 AM EST) Body Fluid Source Knee, Right [facility] Color, Fld Yellow [facility] Appearance, Fld Clear [facility] WBC Count, Fld 124 /mcl [facility] Comment: Guideline listed below apply to all body fluids EXCEPT: Bronchial Lavage Specimens (BAL specimens). Differentials on BAL specimens are performed by the Cytology lab section. When Body Fluid WBC count is greater than Zero, a smear is made and scanned. All scan information is correlated with numeric results prior to being released to patients chart. Polymorphonuclear cells BF % 13 % [facility] Comment: Polymorphonuclear cell percent and absolute values may contain Neutrophils, Eosinophils, and Basophils. Body fluid smear will be scanned manually for concordance. Mononuclear cells BF % 87 % [facility] Comment: Mononuclear cell percent and absolute values may contain Lymphocytes and Monocytes. Body fluid smear will be scanned manually for concordance. Polymorphonuclear cells BF ABS 16 /[facility] Comment: Polymorphonuclear cell percent and absolute values may contain Neutrophils, Eosinophils, and Basophils. Body fluid smear will be scanned manually for concordance. Mononuclear cells BF ABS 108 /[facility] Comment: Mononuclear cell percent and absolute values may contain Lymphocytes and Monocytes. Body fluid smear will be scanned manually for concordance. Specimen from lower limb (specimen) 06/16/2017 11:36 AM EST 06/16/2017 11:40 AM EST Narrative Resulting Agency Comment Spec In Lab Dane Chan MD BODY FLUIDS AND STOO LS ORDERABLES [facility] [place] [address] * SCAN DOC: IMPLANTABLE DEVICES (06/16/2017 12:00 AM EST) Narrative 06/16/2017 12:00 AM EST Ordered by an unspecified provider. Scanning Provider MEDIA MGR SCAN EXT O RDR/RSLT * SCAN DOC: COMPUTER SYSTEMS ADMINISTRATOR (06/16/2017 12:00 AM EST) Anatomical Region Laterality Modality Other Narrative 06/16/2017 12:00 AM EST Ordered by an unspecified provider. Scanning Provider MEDIA MGR SCAN EXT O RDR/RSLT documented in this encounter Visit Diagnoses Not on filedocumented in this encounter Admitting Diagnoses Diagnosis Knee instability Other joint derangement, not elsewhere classified, lower leg documented in this encounter Administered Medications Inactive Administered Medications - up to 3 most recent administrations Medication Order MAR Action Action Date Dose Rate Site acetaminophen (TYLENOL) tablet 1,000 mg 1,000 mg, Oral, EVERY 8 HOURS SCHEDULED, First dose on Fri06/16/17 at 1400, Until Discontinued, Maximum dose of acetaminophen is 4000 mg from all sources in 24 hours., Routine Given 06/17/2017 6:07 AM EST 1,000 mg Given 06/16/2017 9:33 PM EST 1,000 mg Given 06/16/2017 1:36 PM EST 1,000 mg aspirin EC tablet 81 mg 81 mg, Oral, 2 TIMES DAILY, First dose on Fri06/16/17 at 2200, Until Discontinued, Routine Given 06/17/2017 9:22 AM EST 81 mg Given 06/16/2017 9:33 PM EST 81 mg bacitracin injection ONCE PRN, Starting on Fri06/16/17 at 1141, Until Fri06/17/17 at 1433, Intra-Operative (Intra-Procedure), Routine Given 06/16/2017 11:41 AM EST 50,000 Units 19- Surgical Site BUpivacaine-EPINEPHrine 0.25 %-1:200,000 injection ONCE PRN, Starting on Fri06/16/17 at 1222, Until Fri06/17/17 at 1433, Intra-Operative (Intra-Procedure), Routine Given 06/16/2017 12:22 PM EST 50 mLs 19- Surgical Site cloNIDine injection ONCE PRN, Starting on Fri06/16/17 at 1223, Until Fri06/17/17 at 1433, Intra-Operative (Intra-Procedure), Routine Given 06/16/2017 12:23 PM EST 50 mcg 19- Surgical Site gabapentin (NEURONTIN) capsule 300 mg 300 mg, Oral, NIGHTLY, First dose on Fri06/18/17 at 2100, Until Discontinued, Routine gabapentin (NEURONTIN) capsule 600 mg 600 mg, Oral, NIGHTLY, 2 doses, First dose on Fri06/16/17 at 2100, Last dose on Fri06/17/17 at 2100, Routine Given 06/16/2017 9:33 PM EST 600 mg ketorolac (TORADOL) injection ONCE PRN, Starting on Fri06/16/17 at 1223, Until Fri06/17/17 at 1433, Intra-Operative (Intra-Procedure), Routine Given 06/16/2017 12:23 PM EST 30 mg 19- Surgical Site multivitamin Cgek-Wm-ZA-Min (THERAPEUTIC-M) 27-0.4 mg tablet 1 tablet 1 tablet, Oral, DAILY, First dose on Fri06/17/17 at 0900, Until Discontinued Given 06/17/2017 9:22 AM EST 1 tablet ondansetron (ZOFRAN) injection 4 mg 4 mg, Intravenous, EVERY 8 HOURS PRN, Starting on Fri06/16/17 at 2105, Until Fri06/17/17 at 1433, Nausea, May repeat times one in 30 minutes if ineffective. If multiple antiemetics are ordered, use ondanstron first, Recovery (Recovery-Hospital Unit) ondansetron (ZOFRAN) tablet 4 mg 4 mg, Oral, EVERY 8 HOURS PRN, Starting on Fri06/16/17 at 2105, Until Fri06/17/17 at 1433, Nausea, Vomiting, If multiple antiemetics are ordered, use ondansetron first. PO Preferred. If patient unable to take PO, may give IV if ordered. May repeat times one in 45 minutes if ineffective., Recovery (Recovery-Hospital Unit), Routine oxyCODONE (ROXICODONE) immediate release tablet 5-15 mg 5-15 mg, Oral, EVERY 4 HOURS PRN, Starting on Fri06/16/17 at 1305, Until Fri06/17/17 at 1433, Pain, Give 5 mg for mild pain (1-3), 10 mg for moderate pain (4-6) or 15 mg for severe pain (7-10) May give an additional 5 mg in 30 minutes ONCE if pain not relieved., Routine Given 06/17/2017 10:53 AM EST 15 mg Given 06/17/2017 6:10 AM EST 10 mg Given 06/16/2017 11:17 PM EST 10 mg pantoprazole (PROTONIX) tablet 20 mg 20 mg, Oral, DAILY, First dose on Fri06/17/17 at 0900, Until Discontinued, DO NOT CRUSH OR OPEN Given 06/17/2017 9:22 AM EST 20 mg polyethylene glycol (MIRALAX) packet 17 g 17 g, Oral, 2 TIMES DAILY, First dose on Fri06/16/17 at 2200, Until Discontinued, Routine Given 06/17/2017 9:24 AM EST 17 g Given 06/16/2017 9:33 PM EST 17 g senna-docusate (PERICOLACE) 8.6-50 mg per tablet 2 tablet 2 tablet, Oral, 2 TIMES DAILY, First dose on Fri06/16/17 at 2200, Until Discontinued, Routine Given 06/17/2017 9:22 AM EST 2 tablets Given 06/16/2017 9:33 PM EST 2 tablets sodium chloride 0.9 % flush 5 mL 5 mL, Intravenous, 2 TIMES DAILY, First dose on Fri06/16/17 at 2130, Until Discontinued, Recovery (Recovery-Hospital Unit), Routine Given 06/17/2017 9:23 AM EST 5 mLs Given 06/16/2017 9:34 PM EST 5 mLs sodium chloride 0.9% infusion 1,000 mL, at 100 mL/hr, Intravenous, CONTINUOUS, Starting on Fri06/16/17 at 1330, Until Fri06/17/17 at 1433, Recovery (Recovery-Hospital Unit) Rate/Dose Verify 06/16/2017 7:15 PM EST 1,000 mLs 100 mL/hr New Bag 06/16/2017 2:40 PM EST 1,000 mLs 100 mL/hr documented in this encounter Active and Recently Administered Medications Times are shown in EST. Scheduled Medication Order 06/15/2017 06/16/2017 06/17/2017 acetaminophen (TYLENOL) tablet 1,000 mg 1,000 mg, Oral, EVERY 8 HOURS SCHEDULED, First dose on Fri06/16/17 at 1400, Until Discontinued, Maximum dose of acetaminophen is 4000 mg from all sources in 24 hours., Routine 1336 (Given - Provider: Marge Blancas, JOSE DE JESUS)2133 (Given - Provider: Damaris Darling, RN) 0607 (Given - Provider: Damaris Darling RN) aspirin EC tablet 81 mg 81 mg, Oral, 2 TIMES DAILY, First dose on Fri06/16/17 at 2200, Until Discontinued, Routine 3 (Given - Provider: Damaris Darling, RN) 0922 (Given - Provider: Thao Burleson, JOSE DE JESUS) ceFAZolin (ANCEF) 1g in dextrose 5% 50mL (COMPLETED) 1 g, Intravenous, EVERY 8 HOURS, 3 doses, First dose on Fri06/16/17 at 1330, Last dose on Fri06/17/17 at 0700, Administer over 30 Minutes, Adjust to 4 hours from intraoperative dose. * Beta-lactam based antibiotics (eg. Ampicillin, Cefazolin, Aztreonam) should be administered within 4 hours of the preceding intraoperative dose. * Vancomycin, Flouroquinolones, Clindamycin, Gentamicin, and Metronidazole should be administered within 8 hours of the preceding intraoperative dose., Recovery (Recovery-Hospital Unit), Indication for (Active or Suspected): Prophylaxis 1521 (New Bag - Provider: Marge Blancas RN)1551 (Stopped - Provider: Kaia Castillo, JOSE DE JESUS)2300 (Canceled Entry - Provider: Kaia Castillo, JOSE DE JESUS - Reason: Transfer to a Procedural area)2316 (New Bag - Provider: Damaris Darling RN)2346 (Stopped - Provider: Damaris Darling, JOSE DE JESUS) 0917 (New Bag - Provider: Thao Burleson, JOSE DE JESUS)0947 (Stopped - Provider: Thao Burleson, JOSE DE JESUS) ceFAZolin (ANCEF) 2g in dextrose 5% 100 mL (COMPLETED) 2 g, Intravenous, EVERY 3 HOURS, 1 dose, First dose on Fri06/16/17 at 0845, Administer over 30 Minutes, Redose after 3 hours., Intra-Operative (Intra-Procedure), Indication for (Active or Suspected): Prophylaxis 1112 (Given - Provider: Tatum Callejas CRNA) celecoxib (CeleBREX) capsule 400 mg (COMPLETED) 400 mg, Oral, ONCE, 1 dose, On Fri06/16/17 at 0845, Administer on arrival to Same Day Program, Day of Surgery (Day of Procedure), Routine 09 (Given - Provider: Laura Landis RN) dexamethasone (DECADRON) tablet 4 mg (COMPLETED) 4 mg, Oral, DAILY, 2 doses, First dose on Fri06/16/17 at 1330, Last dose on Fri06/17/17 at 0900, Routine 1442 (Given - Provider: Marge Blancas, JOSE DE JESUS) 09 (Given - Provider: Thao Burleson, JOSE DE JESUS) gabapentin (NEURONTIN) capsule 300 mg (COMPLETED) 300 mg, Oral, ONCE, 1 dose, On Fri06/16/17 at 0845, Administer on arrival in Same Day Program, Day of Surgery (Day of Procedure), Routine 903 (Given - Provider: Laura Landis RN) gabapentin (NEURONTIN) capsule 300 mg(Linked Group 1) 300 mg, Oral, NIGHTLY, First dose on Fri06/18/17 at 2100, Until Discontinued, Routine gabapentin (NEURONTIN) capsule 600 mg(Linked Group 1) 600 mg, Oral, NIGHTLY, 2 doses, First dose on Fri06/16/17 at 2100, Last dose on Fri06/17/17 at 2100, Routine 2133 (Given - Provider: Damaris Darling RN) ketorolac (TORADOL) injection 15 mg 15 mg, Intravenous, EVERY 6 HOURS SCHEDULED, 4 doses, First dose on Fri06/16/17 at 1330, Last dose on Fri06/17/17 at 0800, Routine 1330 (Not Given - Provider: Marge Blancas RN - Reason: See comment - Comment: given in OR)1938 (Given - Provider: Kaia Castillo RN) 217 (Given - Provider: Damaris Darling RN)918 (Given - Provider: Thao Burleson, JOSE DE JESUS) multivitamin Xejs-Ng-HY-Min (THERAPEUTIC-M) 27-0.4 mg tablet 1 tablet 1 tablet, Oral, DAILY, First dose on Fri06/17/17 at 0900, Until Discontinued 921 (Given - Provid er: Thao Burleson, JOSE DE JESUS) pantoprazole (PROTONIX) tablet 20 mg 20 mg, Oral, DAILY, First dose on Fri06/17/17 at 0900, Until Discontinued, DO NOT CRUSH OR OPEN 921 (Given - Provid er: Thao Burleson RN) polyethylene glycol (MIRALAX) packet 17 g 17 g, Oral, 2 TIMES DAILY, First dose on Fri06/16/17 at 2200, Until Discontinued, Routine 2132 (Given - Provider: Damaris Darling RN) 0924 (Given - Provider: Thao Burleson, JOSE DE JESUS) senna-docusate (PERICOLACE) 8.6-50 mg per tablet 2 tablet 2 tablet, Oral, 2 TIMES DAILY, First dose on Fri06/16/17 at 2200, Until Discontinued, Routine 2132 (Given - Provider: Damaris Darling RN) 09 (Given - Provider: Thao Burleson RN) sodium chloride 0.9 % flush 5 mL 5 mL, Intravenous, 2 TIMES DAILY, First dose on Fri06/16/17 at 2130, Until Discontinued, Recovery (Recovery-Hospital Unit), Routine 2133 (Given - Provider: Damaris Darling RN) 922 (Given - Provider: Thao Burleson RN) tranexamic acid (CYKLOKAPRON) 1,259 mg in sodium chloride 0.9% 112.59 mL (COMPLETED) 1,259 mg (rounded from 1,258.5 mg = 15 mg/kg/dose ? 83.9 kg), Intravenous, ONCE, 1 dose, On Fri06/16/17 at 0845, Administer over 30 Minutes, Dilute tranexamic acid dose in 100 mL sodium chloride 0.9% prior to administration. For patients less than or equal to 200 kg infuse over 30 minutes. For patients greater than 200 kg infuse over 60 minutes. , Day of Surgery (Day of Procedure) 1100 (New Bag - Provider: Tatum Callejas CRNA - Comment: over 15 minutes)1151 (Stopped - Provider: Tatum Callejas CRNA) Continuous Medication Order 06/15/2017 06/16/2017 06/17/2017 lactated Ringers infusion 1,000 mL (CANCELED) 1,000 mL, at 100 mL/hr, Intravenous, CONTINUOUS, Starting on Fri06/16/17 at 0845, Until Fri06/16/17 at 1933, Day of Surgery (Day of Procedure) 0845 (New Bag - Provider: Kristopher Landis RN)1051 (Canceled Entry - Provider: Tatum Callejas CRNA)1120 (Anesthesia Volume Adjustment - Provider: Tatum Callejas CRNA)1234 (New Bag - Provider: Tatum Callejas CRNA) sodium chloride 0.9% infusion 1,000 mL, at 100 mL/hr, Intravenous, CONTINUOUS, Starting on Fri06/16/17 at 1330, Until Fri06/17/17 at 1433, Recovery (Recovery-Hospital Unit) 1440 (New Bag - Provider: Marge Blancas RN)1915 (Rate/Dose Verify - Provider: Kaia Castillo RN) PRN Medication Order 06/15/2017 06/16/2017 06/17/2017 bacitracin injection (CANCELED) ONCE PRN, Starting on Fri06/16/17 at 1141, Until Fri06/17/17 at 1433, Intra-Operative (Intra-Procedure), Routine 1141 (Given - Provider: Dane Chan MD - Comment: 50,000 units Bacitracin mixed in 3L normal saline irrigation solution.) bisacodyl (DULCOLAX) EC tablet 10 mg 10 mg, Oral, 2 TIMES DAILY PRN, Starting on Fri06/16/17 at 2105, Until Fri06/17/17 at 1433, Constipation, DO NOT CRUSH OR OPEN Administer if needed per patient's routine or if no bowel movement within 48 hours to achieve: (1) One bowel movement every 48 hours, AND (2) without straining. If multiple PRN bowel medications ordered, start with lactulose, then oral bisacodyl, then bisacodyl suppository. Multiple medications may be given concomitantly for constipation., Routine bisacodyl (DULCOLAX) suppository 10 mg 10 mg, Rectal, DAILY PRN, Starting on Fri06/16/17 at 2105, Until Fri06/17/17 at 1433, Constipation, Administer if needed per patient's routine or if no bowel movement within 48 hours to achieve: (1) One bowel movement every 48 hours, AND (2) without straining. If multiple PRN bowel medications ordered, start with lactulose, then oral bisacodyl, then bisacodyl suppository. Multiple medications may be given concomitantly for constipation., Routine BUpivacaine-EPINEPHrine 0.25 %-1:200,000 injection (CANCELED) ONCE PRN, Starting on Fri06/16/17 at 1222, Until Fri06/17/17 at 1433, Intra-Operative (Intra-Procedure), Routine 1222 (Given - Provider: Dane Chan MD - Comment: Mixture contains .25% sensorcaine, 1ml (30mg/ml) toradol, and 0.5ml (100mcg/ml) clonidine. 40ml of mixture used.) cloNIDine injection (CANCELED) ONCE PRN, Starting on Fri06/16/17 at 1223, Until Fri06/17/17 at 1433, Intra-Operative (Intra-Procedure), Routine 1223 (Given - Provider: Dane Chan MD - Comment: NOT EPIDURAL. Mixture contains .25% sensorcaine, 1ml (30mg/ml) toradol, and 0.5ml (100mcg/ml) clonidine. 40ml of mixture used.) fentaNYL (PF) 50mcg/mL injection (CANCELED) 25-50 mcg, Intravenous, EVERY 5 MIN PRN, Starting on Fri06/16/17 at 0821, Until Fri06/16/17 at 1022, nerve block, Day of Surgery (Day of Procedure), Routine 1020 (Given - Provider: Laura Landis RN) fentaNYL (PF) 50mcg/mL injection (CANCELED)(Linked Group 2) 25-50 mcg, Intravenous, EVERY 5 MIN PRN, Starting on Fri06/16/17 at 1214, Until Fri06/16/17 at 1933, Pain, Give 25 mcg every 5 minutes PRN for mild to moderate pain (1-5) Give 50 mcg every 5 minutes PRN for moderate to severe pain (6-10). Hold for respiratory rate less than 10 per minute. Maximum dose 250 mcg over one hour. If ordered with hydromorphone or morphine, give hydromorphone or morphine first and use fentanyl for breakthrough pain., PACU Recovery, Routine 1438 (Given - Provider: Marge Blancas RN) ketorolac (TORADOL) injection (CANCELED) ONCE PRN, Starting on Fri06/16/17 at 1223, Until Fri06/17/17 at 1433, Intra-Operative (Intra-Procedure), Routine 1223 (Given - Provider: Dane Chan MD - Comment: Mixture contains .25% sensorcaine, 1ml (30mg/ml) toradol, and 0.5ml (100mcg/ml) clonidine. 40ml of mixture used.) lactulose (CHRONULAC) 20 gram/30 mL oral solution 20-40 g 20-40 g (30-60 mL), Oral, DAILY PRN, Starting on Fri06/16/17 at 2105, Until Fri06/17/17 at 1433, Constipation, Administer if needed per patient's routine or if no bowel movement within 48 hours to achieve: (1) One bowel movement every 48 hours, AND (2) without straining. If multiple PRN bowel medications ordered, start with lactulose, then oral bisacodyl, then bisacodyl suppository. Multiple medications may be given concomitantly for constipation., Routine lidocaine (XYLOCAINE) 10 mg/mL (1 %) injection 3 mg 3 mg (0.3 mL), Subcutaneous, ONCE PRN, 1 dose, Starting on Fri06/16/17 at 2105, Until Fri06/17/17 at 1433, for discomfort with PIV insertion, Recovery (Recovery-Hospital Unit), Routine midazolam (PF) (VERSED) 1 mg/mL injection 1-2 mg (CANCELED) 1-2 mg, Intravenous, EVERY 5 MIN PRN, Starting on Fri06/16/17 at 0821, Until Fri06/16/17 at 1022, Sleep, block sedation. 1mg for mild anxiety, 2mg for moderate anxiety, Day of Surgery (Day of Procedure), Routine 1020 (Given - Provider: Laura Landis RN) ondansetron (ZOFRAN) injection 4 mg(Linked Group 3) 4 mg, Intravenous, EVERY 8 HOURS PRN, Starting on Fri06/16/17 at 2105, Until Fri06/17/17 at 1433, Nausea, May repeat times one in 30 minutes if ineffective. If multiple antiemetics are ordered, use ondanstron first, Recovery (Recovery-Hospital Unit) ondansetron (ZOFRAN) tablet 4 mg(Linked Group 3) 4 mg, Oral, EVERY 8 HOURS PRN, Starting on Fri06/16/17 at 2105, Until Fri06/17/17 at 1433, Nausea, Vomiting, If multiple antiemetics are ordered, use ondansetron first. PO Preferred. If patient unable to take PO, may give IV if ordered. May repeat times one in 45 minutes if ineffective., Recovery (Recovery-Hospital Unit), Routine oxyCODONE (ROXICODONE) immediate release tablet 5-15 mg 5-15 mg, Oral, EVERY 4 HOURS PRN, Starting on Fri06/16/17 at 1305, Until Fri06/17/17 at 1433, Pain, Give 5 mg for mild pain (1-3), 10 mg for moderate pain (4-6) or 15 mg for severe pain (7-10) May give an additional 5 mg in 30 minutes ONCE if pain not relieved., Routine 1425 (Given - Provider: Marge Blancas, JOSE DE JESUS)1609 (Given - Provider: Rufus Chapman RN)1844 (Given - Provider: Marge Blancas, JOSE DE JESUS)2317 (Given - Provider: Damaris Darling, JOSE DE JESUS) 0610 (Given - Provider: Damaris Darling, RN)1053 (Given - Provider: Thao Burleson, JOSE DE JESUS) sodium chloride 0.9 % flush 5-20 mL 5-20 mL, Intravenous, EVERY 1 MIN PRN, Starting on Fri06/16/17 at 2105, Until Fri06/17/17 at 1433, flush, Flush pertains to all indwelling lines. Flush per protocol found in the job aid using the link provided on this medication record., Recovery (Recovery-Hospital Unit), Routine Linked Groups Order Group 1: gabapentin (NEURONTIN) capsule 600 mgJump to med 600 mg, Oral, NIGHTLY, 2 doses, First dose on Fri06/16/17 at 2100, Last dose on Fri06/17/17 at 2100, Routine Followed by gabapentin (NEURONTIN) capsule 300 mgJump to med 300 mg, Oral, NIGHTLY, First dose on Fri06/18/17 at 2100, Until Discontinued, Routine Group 2: fentaNYL (PF) 50mcg/mL injection (CANCELED) 12.5-25 mcg, Intravenous, EVERY 5 MIN PRN, Starting on Fri06/16/17 at 1214, Until Fri06/16/17 at 1933, Pain, Give 12.5 mcg every 5 minutes PRN for mild to moderate pain (1-5) Give 25 mcg every 5 minutes PRN for moderate to severe pain (6-10). Hold for respiratory rate less than 10 per minute. Maximum dose 250 mcg over one hour. If ordered with hydromorphone or morphine, give hydromorphone or morphine first and use fentanyl for breakthrough pain., PACU Recovery, Routine Or fentaNYL (PF) 50mcg/mL injection (CANCELED)Jump to med 25-50 mcg, Intravenous, EVERY 5 MIN PRN, Starting on Fri06/16/17 at 1214, Until Fri06/16/17 at 1933, Pain, Give 25 mcg every 5 minutes PRN for mild to moderate pain (1-5) Give 50 mcg every 5 minutes PRN for moderate to severe pain (6-10). Hold for respiratory rate less than 10 per minute. Maximum dose 250 mcg over one hour. If ordered with hydromorphone or morphine, give hydromorphone or morphine first and use fentanyl for breakthrough pain., PACU Recovery, Routine Group 3: ondansetron (ZOFRAN) tablet 4 mgJump to med 4 mg, Oral, EVERY 8 HOURS PRN, Starting on Fri06/16/17 at 2105, Until Fri06/17/17 at 1433, Nausea, Vomiting, If multiple antiemetics are ordered, use ondansetron first. PO Preferred. If patient unable to take PO, may give IV if ordered. May repeat times one in 45 minutes if ineffective., Recovery (Recovery-Hospital Unit), Routine Or ondansetron (ZOFRAN) injection 4 mgJump to med 4 mg, Intravenous, EVERY 8 HOURS PRN, Starting on Fri06/16/17 at 2105, Until Fri06/17/17 at 1433, Nausea, May repeat times one in 30 minutes if ineffective. If multiple antiemetics are ordered, use ondanstron first, Recovery (Recovery- Hospital Unit) documented in this encounter Care Teams Sign Poster Relationship Specialty Start Date End Date Leticia Valero APRN PCP - General Family Medicine 03/18/17 12/16/18 documented as of this encounter
--- OUTSIDE RECORDS SUMMARY | 2024-03-18 14:59 | XMS_ITS | Encounter Summary ---
[place] [address] Care Team Providers Care Senior Client Advisor Name Role Phone AnjumLeticia Leonides CARL Primary Care Provider Encounter Details Date Type Department Care Team (Late st Contact Info) Description 04/03/2017 Orders [place] [address] Dane Fleming MD [facility] [address] [place] [address] Instability of knee joint, unspecified laterality (Primary Dx) Social History Tobacco Use Types [...] as of this encounter Plan of Treatment Scheduled Orders Name Type Priority Associated Diagnoses Orde r Schedule TOTAL KNEE REVISION ARTHROPLASTY, ONE COMPONENT Procedures Routine One Time for 1 Occurrences starting 04/03/2017 until 04/03/2017 documented as of this encounter Results * EKG 12 Lead (05/29/2017 1:05 PM EST) Ventricular rate 62 BPM MUSE SYSTEM Atrial Rate 62 BPM MUSE SYSTEM P-R Interval 122 ms MUSE SYSTEM QRS Duration 84 ms MUSE SYSTEM Q-T Interval 418 ms MUSE SYSTEM QTC Calculated (Bezet) 424 ms MUSE SYSTEM Calculated P [place] 45 degrees MUSE SYSTEM Calculated R Revere 51 degrees MUSE SYSTEM Calculated T Revere 51 degrees MUSE SYSTEM INTERPRETATION Normal sinus rhythm Normal ECG When compared with ECG of 19-FEB-2016 13:04, No significant change was found Confirmed by MD Elmer, Wilfredo ([id number]) on 05/29/2017 4:27:45 PM MUSE SYSTEM 05/29/2017 1:05 PM EST 05/29/2017 4:27 PM EST Dane Fleming MD ECG ORDERABLES Performing Organization Address [facility] Co de Phone Number MUSE SYSTEM * APTT (05/29/2017 12:54 PM EST) Partial Thromboplastin Time 31 25 - 35 sec [facility] Comment: The recommended therapeutic range for full dose, unfractionated heparin at [facility] is 80 ? 114 seconds. The use of the anti-Xa (heparin) level rather than the PTT is recommended for monitoring anticoagulation intensity in critically ill patients receiving unfractionated heparin by continuous IV infusion. Blood specimen (specimen) 05/29/2017 12:54 PM EST 05/29/2017 12:58 PM EST Narrative Resulting Agency Comment Spec In Lab Dane Fleming MD HEMATOLOGY ORDERABLE S Performing Organization Address City/[facility]/ZIP Co de Phone Number [facility] [place] [address] * Prothrombin Time (05/29/2017 12:54 PM EST) Prothrombin Time 12.9 11.8 - 14.0 sec [facility] International Normalization Ratio 1.0 0.9 - 1.1 [facility] Comment: An INR <2.0 indicates [...] Lab Dane Fleming MD HEMATOLOGY ORDERABLE S [facility] [place] [address] * Basic Metabolic Panel (non-fasting) (05/29/2017 12:54 PM EST) Glucose 70 65 - 199 mg/dL [facility] Comment:Diabetes: >=200 mg/d L plus symptoms Blood Urea Nitrogen 12 10 - 20 mg/dL [facility] Creatinine 1.01 0.80 - 1.50 mg/dL [facility] Sodium 142 135 - 145 mmol/L [facility] Potassium 4.1 3.5 - 5.0 mmol/L [facility] Comment: Please note: ??Patients with WBC >100,000 may have falsely elevated Potassium levels. ??For accurate Potassium quantification in these patients send serum separator tube (gold top) for subsequent determinations. ??Contact the Clinical Chemistry Laboratory if there are any questions. Chloride 101 98 - 107 mmol/L [facility] Carbon Dioxide 26 22 - 31 mmol/L [facility] Anion Gap 15 5 - 15 mmol/L [facility] Calcium 9.6 8.5 - 10.5 mg/dL [facility] Est Glomerular Filtration Rate >60 >=60 [facility] Comment: The reported eGFR should be multiplied by 1.2 for patients. The MDRD is not an appropriate measure of renal function for patients with body mass extremes or in patients with acute kidney failure. http://[employer].com/DHnkdep http://[place]. com. cn/DHMCnkf Blood specimen (specimen) 05/29/2017 12:54 PM EST 05/29/2017 12:58 PM EST Narrative Resulting Agency Comment Spec In Lab Dane Fleming MD CHEMISTRY ORDERABLES Performing Organization Address City/State/[facility] Co de Phone Number [facility] [place] [address] documented in this encounter Visit Diagnoses Diagnosis Instability of knee joint, unspecified laterality- Primary documented in this encounter Care Teams Senior Client Advisor Relationship Specialty Start Date End Date Leticia Valero APRN PCP - General Family Medicine 03/18/17 12/16/18 documented as of this encounter
--- OUTSIDE RECORDS SUMMARY | 2024-03-18 14:59 | XMS_ITS | Encounter Summary ---
[place] [address] Care Team Providers Care Boat Outfitter Name Role Phone Leticia Valero APRN Primary Care Provider Reason for Referral * Physical Therapy (Routine) - Specialty Diagnoses / Procedures Referred By Delbert diaz Referred To Contact Physical Therapy Diagnoses Primary osteoarthritis of right knee Dane Fleming MD [facility] [place] [address] Referral ID Status Reason Start Date Expiration Date V isits Requested Visits Authorized [id number] Evaluate and Treat 05/29/2017 11/25/2017 20 20 Encounter Details Date Type Department Care Team (Late st Contact Info) Description 05/29/2017 [place] [address] Dane Fleming MD [facility] [place] [address] Primary osteoarthritis of right knee Social History Tobacco Use Types Packs/Day Years [...] of this encounter Plan of Treatment Scheduled Referrals Name Type Priority Associated Diagnoses Orde r Schedule Referral to Physical Therapy Outpatient Referral Routine Primary osteoarthritis of right knee Ordered: 05/29/2017 documented as of this encounter Visit Diagnoses Diagnosis Primary osteoarthritis of right knee Primary localized osteoarthrosis, lower leg documented in this encounter Care Teams Boat Outfitter Relationship Specialty Start Date End Date Leticia Valero APRN PCP - General Family Medicine 03/18/17 12/16/18 documented as of this encounter
--- OUTSIDE RECORDS SUMMARY | 2024-03-18 14:59 | XMS_ITS | Encounter Summary ---
[place] [address] Care Team Providers Care Stain Remover Name Role Phone Jeff Sherman MD Primary Care Provider [phone] Encounter Details Date Type Department Care Team (Late st Contact Info) Description 02/24/2016 Telephone [place] [address] Ian Mustafa MD [facility] [place] [address] Social History Tobacco Use Types Packs/Day Years [...] encounter Miscellaneous Notes * Telephone Encounter - Ian Mustafa MD - 02/24/2016 11:59 AM EDT Patient concerned about bruising on lateral side of the knee (away from the incision) with some increased swelling in knee. Pain is increased a little bit as well. He is on aspirin for DVT ppx. Is otherwise feeling well without fever, chills, or erythema. Recommended Ice, elevation, compression. Heis agreeable and will call with further concerns. documented in this encounter Plan of Treatment Not on file documented as of this encounter Visit Diagnoses Not on filedocumented in this encounter Care Teams Stain Remover Relationship Specialty Start Date End Date Jeff Sherman MD [facility] [address] [place] [address] PCP - General General Internal Medicine 11/07/1509/16 documented as of this encounter
--- OUTSIDE RECORDS SUMMARY | 2024-03-18 14:59 | XMS_ITS | Encounter Summary ---
[place] [address] Care Team Providers Care Clinical Rehabilitation Specialist Name Role Phone AnjumLeticia Leonides CARL Primary Care Provider Reason for Visit * Reason Comments Aftercare Of Tjr Right TKA REV DOS Encounter Details Date Type Department Care Team (Late st Contact Info) Description 07/21/2017 2:40 PM EST Office [place] [address] Dane Fleming MD [facility] [address] [place] [address] Instability of right knee joint Social History [...] Sign Reading Time Taken Comments Blood Pressure 117/77 07/21/2017 2:55 PM EST Pulse 64 07/21/2017 2:55 PM EST Temperature - - Respiratory Rate - - Oxygen Saturation - - Inhaled Oxygen Concentration - - Weight 83.9 kg (185 lb) 07/21/2017 2:55 PM EST Height 180.3 cm (5' 11) 07/21/2017 2:55 PM EST Body Mass Index 25.8 07/21/2017 2:55 PM EST documented in this encounter Progress Notes * Dane Fleming MD - 07/21/2017 2:40 PM EST Chief complaint: Problem List Items Addressed This Visit s/p R TKA revision for instability, polyswap 06/16/17 (Bernadette) History of present illness: Yvan Maddox is a 42 y.o. year-old male who is now 1 month status postpolyethylene swap for right knee instability. He overall is doing well. He feels improved from preoperatively. He has been working with physical therapy. He denies signs of infection. Pain controlled--off meds Past medical history: Patient Active Problem List Diagnosis Date Noted ??? s/p R TKA revision for instability, polyswap 06/16/17 (Bernadette) 05/20/2017 ??? Status post total knee replacement, right with Dr. Fleming (02/22/16) 02/22/2016 ??? History of nasal surgery 11/13/2015 Medications: ??? diphenhydrAMINE (BENADRYL) 25 mg Capsule Allergies: [...] chills Vital signs: Temp: -- Physical Exam: I have made the following determinations: Well healed incision Post Op Left Knee Exam: Knee ROM: Extension:5 Flexion: 120 Alignment: 0-4 degrees Neutral Stability: A/P Translation <5mm Varus (lateral stability) <5mm Valgus (medial stability) <5mm Extension La degrees or less Patella Tracking: Normal Pulses Palpable: Left PT:Yes Left DP:Yes Motor/Sensory: Distal Motor: Normal Distal Sensory: Normal Quadriceps Strength:5 Imaging: Personal review of the patient's imaging reveals: Good alignment. No signs failure Assessment: 42 y.o. year-old male recovering well for poly swap (upsizing) for global knee instability s/p TKA Plan: Continue to progress as tolerated. We discussed his progress and projected recovery. So far he is progressing well. Follow up: 2 months without XRs This plan was discussed with the patient and they are in agreement. All of the patient's questions were answered. The above dictation was made with voice recogonition software documented in this encounter Plan of Treatment Not on file documented as of this encounter Visit Diagnoses Diagnosis Instability of right knee joint Other joint derangement, not elsewhere classified, lower leg documented in this encounter Care Teams Clinical Rehabilitation Specialist Relationship Specialty Start Date End Date Leticia Valero APRN PCP - General Family Medicine 03/18/17 12/16/18 documented as of this encounter
--- OUTSIDE RECORDS SUMMARY | 2024-03-18 14:59 | XMS_ITS | Encounter Summary ---
[place] [address] Care Team Providers Care Glass Sander Name Role Phone Anjum Leticia Coyle APRN Primary Care Provider [phone] Reason for Visit * Auth/Cert Specialty Diagnoses / Procedures Referred By Delbert diaz Referred To Contact Diagnoses Knee instability Knee instability Procedures PRO REVISE KNEE JOINT REPLACE, 1 PART @TOTAL KNEE REVISION ARTHROPLASTY, ONE COMPONENT (WRVU 21.12) Referral ID Status Reason Start Date Expiration Date Visits Re quested Visits Authorized [id number] 1 1 Encounter Details Date Type Department Care Team (Late st Contact Info) Description 06/16/2017 10:58 AM EST Anesthesia Event [place] [address] Jennifer Luu MD [facility] [place] [address] Christiano Phillips MD [facility] [place] [address] Anesthesia Record Procedure Summary Procedure Name Responsible Anesthesiologist Anesthesia Start Time Anesthesia Stop Time @TOTAL KNEE REVISION ARTHROPLASTY, ONE COMPONENT (WRVU 21.12) (Right: Knee) Jennifer Luu MD 06/16/17 1058 06/16/17 1256 Events Date Time Event Comment 06/16/2017 1058 Start 1059 AN Verify 1100 An Start Data 1105 Spinal 1112 Anesthesia Ready 1130 An Tourn Inflated 250mmHg 1130 Procedure Start 1230 An Tourn Deflated One hour 1244 Procedure Stop 1245 an stop data 1256 Recovery or ICU Handoff Dorene ent care was transferred to the destination unit staff after review of the patient's medical history, current anesthetic/surgical status and plan, according to the Provider Handoff Checklist. 1256 Stop Patient awake, alert, and oriented; actively conversing with staff. Spontaneous ventilation without issue. VSS. Full report given to DEER FARMER. 1617 Meds Name Total Propofol 300 mg Propofol INF 558.89 mg BUpivacaine 0.75% spinal 15 mg ceFAZolin (ANCEF) 2g in dextrose 5% 100 mL 2 g tranexamic acid (CYKLOKAPRON) 1,259 mg i n sodium chloride 0.9% 112.59 mL 1,070.15 mg ePHEDrine 10 mg Lidocaine 1% 4 mL lactated Ringers infusion 1,000 mL 1,000 mL * Agents Name O2 Air N2O Sevoflurane (et) O2 Auxiliary Flowmeter 1 * Blood No blood administrations on file. Lines, Drains, and Airways Type Details Placement Removal Incision 02/22/16; knee; 01/14/22 (LDA cleanup utility RA#[id number]); 1715 (LDA cleanup utility RA#[id number]) 02/22/16 0000 by Ewa Hernandez RN 01/14/22 1715 by Jose Juan Spencer (RETIRED) Peripheral IV Line - Single Lumen 06/16/17; 0851; cephalic vein (lateral side of arm), left; bmkx-[id number] catheter system; 18 gauge, 1 in length; Tyra Prince RN ; distraction, intradermal injection; 02/21/21 (LDA Cleanup utility RA#[id number]); 1650 (LDA Cleanup utility RA#[id number]) 06/16/17 0851 by Laura aLndis RN 02/21/21 1650 by Syed Gutierrez Incision 06/16/17; 1130; knee ; midline; 01/14/22 (LDA cleanup utility RA#[id number]); 1715 (LDA cleanup utility RA#[id number]) 06/16/17 1130 by Pita Bass RN 01/14/22 1715 by Jose Juan Spencer documented in this encounter Social History Tobacco Use Types Packs/Day Years [...] on file documented as of this encounter OR Notes * Anesthesia Postprocedure Evaluation - Jennifer Luu MD - 06/16/2017 4:18 PM EST [facility] [place]hesiology Post-procedure Note Patient: Yvan Maddox Procedure Summary Date Anesthesia Start Anesthesia Stop Room / Location 06/16/17 1058 1256 [facility] OR 10 / [facility] MAIN OR Procedure Diagnosis Surgeon Responsible Provider @TOTAL KNEE REVISION ARTHROPLASTY, ONE COMPONENT (WRVU 21.12) (Right Knee); MODIFIER: ATTUNE STABILIZED FIXED PLATFORM DEPUY (Right ) (Knee instability) Dane Fleming MD Hillier, Simon C, MD All Anesthesia Providers: Anesthesiologist: Jennifer Luu MD GRAIN OPERATOR: Tatum Callejas CRNA Most Recent Vitals: 06/16/17 1545 BP: 115/73 Pulse: 65 Resp: 21 Temp: SpO2: 96% Pain Patient [facility] Level of Consciousness: Awake and Alert Pain Management: Satisfactory Analgesia PONV: None Cardiovascular Status: At Baseline Respiratory Status: At Baseline Postoperative Fluid Status: Intravascular EUvolemia Possible Anesthetic Complications: NONE apparent at time of evaluation Final Primary Anesthesia Type: Comments: * Anesthesia Procedure Notes - Tatum Callejas CRNA - 06/16/2017 11:17 AM EST Associated Order(s): ANESTHESIA BLOCK Procedure: Anesthesia Block ~~~~~~~~~~~~~~~~~~~~~~~~~~~~~~~~~~~~~~~~~~~~~~~~~~~~~~~~~~~~ * Anesthesia Procedure Notes - Jennifer Luu MD - 06/16/2017 11:17 AM EST Associated Order(s): ANE NEURAXIAL UPDATED Procedure: Neuraxial Block Type: Spinal The patient was greeted. The sedation plan, its benefits, risks and alternatives were discussed with the patient. The patient has consented to the procedure. The medical history and chart were reviewed. The timeout was performed. Start time: 06/16/2017 11:10 AM End time: 06/16/2017 11:12 AM Patient Location: Operating Room Patient Prep Position: Sitting Prep: Hand Hygiene, Mask, Sterile Gloves, Chlorhexidine and Patient Draped Injection technique: single-shot Skin Anesthetic Lidocaine 1% 2 ml Procedure Technique Level of needle insertion: L3-4 Needle Type: [facility] Gauge: 25 Needle length: 3.5 in Number of attempts: 1 Intrathecal Injection The patient received the following medication/s as an intrathecal injection: Bupivacaine 0.75% w dextrose 2 ml Events/Notes Events: None Resident/GRAIN OPERATOR: TATUM CALLEJAS Second Resident/GRAIN OPERATOR: Fellow: Attending Physician: JENNIFER LUU ~~~~~~~~~~~~~~~~~~~~~~~~~~~~~~~~~~~~~~~~~~~~~~~~~~~~~~~~~~~~ * Anesthesia Procedure Notes - Oskar Mendoza MD - 06/16/2017 8:50 AM EST Associated Order(s): ANESTHESIA BLOCK Procedure: Anesthesia Block Block: Post-op Pain Control, adductor canal block Start time: 06/16/2017 9:12 AM End time: 06/16/2017 9:16 AM Patient Location: Block Room Indication/Prep Position: supine Prep: chlorhexidine, mask, cap, sterile gloves, hand hygeine, patient draped Laterality: right Skin Medication lidocaine 1% 5 ml Injection Information Ultrasound Guidance: live and in-plane Ultrasound guidance was used to identify the targeted neuronal structure. Ultrasound was also used to identify needle positon and to identify surrounding tissue (bone, muscle, and blood vessels) to prevent inadvertent intraneural or intravascular needle placement and injection. The spread of local anesthetic was confirmed with live ultrasound imaging. Injection technique:single-shot Needle Length: 10 cm Gauge: 21 Needle Type: [id number]-ejvpl-bizmn Medication injection made incrementally with aspirations. Nerve infiltration solution through a needle Bupivicaine 0.5% 20 mL Additional Notes No complications or paresthesias. Patient tolerated the procedure well. Intermittent aspiration negative. Resident: Second Resident: Fellow: OSKAR MENDOZA Attending Physician: CHRISTIANO PHILLIPS ~~~~~~~~~~~~~~~~~~~~~~~~~~~~~~~~~~~~~~~~~~~~~~~~~~~~~~~~~~~~ * Anesthesia Preprocedure Evaluation - Oskar Mendoza MD - 06/13/2017 3:27 PM EST Pre-Anesthesia Evaluation for: Yvan Maddox a 42 y.o. male. Procedure(s): @TOTAL KNEE REVISION ARTHROPLASTY, ONE COMPONENT (WRVU 21.12) MODIFIER: ATTUNE STABILIZED FIXED PLATFORM DEPUY Patient Active Problem List Diagnosis ??? Knee instability ??? Status post total knee replacement, right with Dr. Fleming (02/22/16) ??? History of nasal surgery No past medical history on file. Past Surgical History: Procedure Laterality Date ??? PRO TOTAL KNEE ARTHROPLASTY Right 02/22/2016 @TOTAL KNEE ARTHROPLASTY performed by Dane Fleming MD at [facility] MAIN OR Social History Substance Use Topics ??? Smoking status: Current Every Day Smoker Packs/day: 0.25 Types: Cigarettes ??? Smokeless tobacco: Former User Types: Chew Comment: a pack a week ??? Alcohol use No History Drug Use ??? Yes ??? Special: Marijuana Comment: daily Allergies Allergen Reactions ??? Hay [Grass Pollen[place], Standard] Hives Medications: MAR and/or home medications have been reviewed. Physical Exam: There were no vitals filed for this visit. There is no height or weight on file to calculate BMI. Airway Assessment: Mallampati: I TM distance: >3 FB Neck ROM: full Cardiovascular Assessment: Pulmonary Assessment: Dental Assessment: - normal exam Misc Assessment: IV access: Peripheral line Anesthesia Plan: ASA 2 spinal, 42yo male presenting for revision R TKA for knee instability. Pt is s/p original R TKA 02/2016 withspinal/adductor canal block, tolerated well. PMHx: smoker 1ppw (none x2 wks in anticipation of surgery) Cardiopulmonary Hx: no known disease Appropriately NPO Plan: spinal, adductor canal block; GA backup The patient was informed of the risks of anesthesia, and consent was obtained. Region - Other Informed Consent: Anesthetic plan and risks discussed with patient. PAT Staff Note documented in this encounter Plan of Treatment Not on file documented as of this encounter Procedures Procedure Name Priority Date/Time Associated Diagnosis Comments ANE NEURAXIAL UPDATED Routine 06/16/2017 11:41 AM EST Procedure Note - Jennifer Luu MD - 06/16/2017 11:17 AM ESTThis note is in progress. Procedure: Neuraxial Block Type: Spinal The patient was greeted. The sedation plan, its benefits, risks andalternatives were discussed with the patient. The patient has consentedto the procedure. The medical history and chart were reviewed. Thetimeout was performed. Start time: 06/16/2017 11:10 AM End time: 06/16/2017 11:12 AM Patient Location: Operating Room Patient Prep Position: Sitting Prep: Hand Hygiene, Mask, Sterile Gloves, Chlorhexidine and PatientDraped Injection technique: single-shot Skin Anesthetic Lidocaine 1% 2 ml Procedure Technique Level of needle insertion: L3-4 Needle Type: Vanessa Gauge: 25 Needle length: 3.5 in Number of attempts: 1 Intrathecal Injection The patient received the following medication/s as an intrathecalinjection: Bupivacaine 0.75% w dextrose 2 ml Events/Notes Events: None Resident/GRAIN OPERATOR: TATUM CALLEJAS Second Resident/GRAIN OPERATOR: Fellow: Attending Physician: JENNIFER LUU ~~~~~~~~~~~~~~~~~~~~~~~~~~~~~~~~~~~~~~~~~~~~~~~~~~~~~~~~~~~~ ANESTHESIA BLOCK Routine 06/16/2017 11:1 7 AM EST Procedure Note - Tatum Callejas, GRAIN OPERATOR - 06/16/2017 11:17 AM ESTThis note is in progress. Procedure: Anesthesia Block ~~~~~~~~~~~~~~~~~~~~~~~~~~~~~~~~~~~~~~~~~~~~~~~~~~~~~~~~~~~~ ANESTHESIA BLOCK Routine 06/16/2017 8:51 AM EST Procedure Note - Oskar Mendoza MD - 06/16/2017 8:50 AM ESTThis note is in progress. Procedure: Anesthesia Block Block: Post-op Pain Control, adductor canal block Start time: 06/16/2017 9:12 AM End time: 06/16/2017 9:16 AM Patient Location: Block Room Indication/Prep Position: supine Prep: chlorhexidine, mask, cap, sterile gloves, hand hygeine, patientdraped Laterality: right Skin Medication lidocaine 1% 5 ml Injection Information Ultrasound Guidance: live and in-plane Ultrasound guidance was used to identify the targeted neuronalstructure. Ultrasound was also used to identify needle positon and toidentify surrounding tissue (bone, muscle, and blood vessels) to preventinadvertent intraneural or intravascular needle placement and injection.The spread of local anesthetic was confirmed with live ultrasoundimaging. Injection technique:single-shot Needle Length: 10 cm Gauge: 21 Needle Type: [id number]-nlggf Medication injection made incrementally with aspirations. Nerve infiltration solution through a needle Bupivicaine 0.5% 20 mL Additional Notes No complications or paresthesias. Patient tolerated the procedure well.Intermittent aspiration negative. Resident: Second Resident: Fellow: OSKAR MENDOZA Attending Physician: CITLALI, CHRISTIANO R ~~~~~~~~~~~~~~~~~~~~~~~~~~~~~~~~~~~~~~~~~~~~~~~~~~~~~~~~~~~~ documented in this encounter Visit Diagnoses Not on filedocumented in this encounter Administered Medications Inactive Administered Medications - up to 3 most recent administrations Medication Order MAR Action Action Date Dose Rate Site BUpivacaine 0.75% in dextrose 8.25% (intrathecal) (SENSORCAINE) 0.75 % (7.5 mg/mL) injection Intrathecal, PRN, Starting on Fri06/16/17 at 1105, Until Fri06/16/17 at 1256, Anesthesia Intra-op, Routine Given 06/16/2017 11:05 AM EST 15 mg ceFAZolin (ANCEF) 2g in dextrose 5% 100 mL 2 g, Intravenous, EVERY 3 HOURS, 1 dose, First dose on Fri06/16/17 at 0845, Administer over 30 Minutes, Redose after 3 hours., Intra-Operative (Intra-Procedure), Indication for (Active or Suspected): Prophylaxis Given 06/16/2017 11:12 AM EST 2 g ePHEDrine 5 mg/mL multi-dose injection PRN, Starting on Fri06/16/17 at 1130, Until Fri06/16/17 at 1256, Anesthesia Intra-op, Routine Given 06/16/2017 11:34 AM EST 5 mg Given 06/16/2017 11:30 AM EST 5 mg lactated Ringers infusion 1,000 mL 1,000 mL, at 100 mL/hr, Intravenous, CONTINUOUS, Starting on Fri06/16/17 at 0845, Until Fri06/16/17 at 1933, Day of Surgery (Day of Procedure) New Bag 06/16/2017 12:34 PM EST New Bag 06/16/2017 8:45 AM EST 1,000 mLs 100 mL/hr lidocaine (XYLOCAINE) 10 mg/mL (1 %) injection PRN, Starting on Fri06/16/17 at 1110, Until Fri06/16/17 at 1256, Anesthesia Intra-op, Routine Given 06/16/2017 11:10 AM EST 4 mLs propofol (DIPRIVAN) 10 mg/mL bolus injection (Anesthesia) Intravenous, PRN, Starting on Fri06/16/17 at 1106, Until Fri06/16/17 at 1256, Anesthesia Intra-op Given 06/16/2017 12:38 PM EST 10 mg Given 06/16/2017 12:31 PM EST 10 mg Given 06/16/2017 12:27 PM EST 20 mg propofol (DIPRIVAN) infusion Intravenous, CONTINUOUS PRN, Starting on Fri06/16/17 at 1107, Until Fri06/16/17 at 1256, Anesthesia Intra-op, Routine Rate/Dose Change 06/16/2017 12:14 PM EST 25 mcg/kg/min 12 mL/hr Rate/Dose Change 06/16/2017 12:05 PM EST 50 mcg/kg/min 24. 1 mL/hr Rate/Dose Change 06/16/2017 11:59 AM EST 75 mcg/kg/min 36. 1 mL/hr tranexamic acid (CYKLOKAPRON) 1,259 mg in sodium chloride 0.9% 112.59 mL 1,259 mg (rounded from 1,258.5 mg = [...] , Day of Surgery (Day of Procedure) New Bag 06/16/2017 11:00 AM EST 1,259 mg/hr 112.6 mL/hr documented in this encounter Care Teams Glass Sander Relationship Specialty Start Date End Date Leticia Valero APRN PCP - General Family Medicine 03/18/17 12/16/18 documented as of this encounter
--- OUTSIDE RECORDS SUMMARY | 2024-03-18 14:59 | XMS_ITS | Encounter Summary ---
[place] [address] Care Team Providers Care Drafter Directional Survey Name Role Phone Anjum Leticia Coyle APRN Primary Care Provider Encounter Details Date Type Department Care Team (Latest Contact Info) Description 05/29/2017 1:00 PM EST Clinical [place] [address] Instability of knee joint, unspecified laterality Social [...] Sign Reading Time Taken Comments Blood Pressure - - Pulse 84 05/29/2017 12:29 PM EST Temperature - - Respiratory Rate - - Oxygen Saturation 100% 05/29/2017 12:29 PM EST Inhaled Oxygen Concentration - - Weight 80.7 kg (178 lb) 05/29/2017 12:29 PM EST Height 180.3 cm (5' 11) 05/29/2017 12:29 PM EST Body Mass Index 24.83 05/29/2017 12:29 PM EST documented in this encounter Progress Notes * Wilver Valdivia RN - 05/29/2017 1:00 PM EST PAT questionnaire reviewed with patient while in Pre Admission testing. Patient had a spinal for his previous surgery and hopes to have that again. Pre- operative instruction booklet reviewed. Patientverbalizes a good understanding of all information. PLAN Testing: Blood work, T&S, EKG done today. Special medication instructions: none Procedure date: 06-16-17 documented in this encounter Plan of Treatment Not on file documented as of this encounter Procedures Procedure Name Priority Date/Time Associated Diagnosis Comments EKG 12-LEAD Routine 05/29/2017 1:05 PM EST Instability of knee joint, unspecified laterality documented in this encounter Results * EKG 12 Lead (05/29/2017 1:05 PM EST) Ventricular rate 62 BPM MUSE SYSTEM Atrial Rate 62 BPM MUSE SYSTEM P-R Interval 122 ms MUSE SYSTEM QRS Duration 84 ms MUSE SYSTEM Q-T Interval 418 ms MUSE SYSTEM QTC Calculated (Bezet) 424 ms MUSE SYSTEM Calculated P [place] 45 degrees MUSE SYSTEM Calculated R [place] 51 degrees MUSE SYSTEM Calculated T [place] 51 degrees MUSE SYSTEM INTERPRETATION Normal sinus rhythm Normal ECG When compared with ECG of 19-FEB-2016 13:04, No significant change was found Confirmed by MD Elmer, Wilfredo ([id number]) on 05/29/2017 4:27:45 PM MUSE SYSTEM 05/29/2017 1:05 PM EST 05/29/2017 4:27 PM EST Dane Fleming MD ECG ORDERABLES MUSE SYSTEM documented in this encounter Visit Diagnoses Diagnosis Instability of knee joint, unspecified laterality documented in this encounter Care Teams Drafter Directional Survey Relationship Specialty Start Date End Date Leticia Valero APRN PCP - General Family Medicine 03/18/17 12/16/18 documented as of this encounter
--- OUTSIDE RECORDS SUMMARY | 2024-03-18 14:59 | XMS_ITS | Encounter Summary ---
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 42 capsule 03/26/2016 04/09/2016 acetaminophen (TYLENOL) 500 mg Tablet Take 2 [...] Comments XR KNEE STANDING ALIGNMENT AP LAT SKY[place] RIGHT Routine 03/26/2016 2:37 PM EST Status post total knee replacement, right with Dr. Fleming (02/22/16) documented in this encounter Results * XR Knee Standing Alignment AP Lat [place] Right (03/26/2016 2:37 PM EST) Anatomical Region [...] (02/22/16) documented in this encounter Care Teams It Security Manager Relationship Specialty Start Date End Date Jeff Sherman MD [facility] [address] [place] [address] PCP - General General Internal Medicine 11/07/1509/16 documented as of this encounter
--- OUTSIDE RECORDS SUMMARY | 2024-03-18 14:59 | XMS_ITS | Encounter Summary ---
[place] [address] Care Team Providers Care Supervisor Cell Maintenance Name Role Phone Jeff Lane MD Primary Care Provider [phone] Reason for Visit * Reason Comments Post-op Problem infection * Auth/Cert Specialty Diagnoses / Procedures Referred By Contac t Referred To Contact Diagnoses Right knee pain Status post total knee replacement, right Status post total knee replacement, right with Dr. Fleming (02/22/16) Procedures obsvo Referral ID Status Reason Start Date Expiration Date Visits Re quested Visits Authorized [id number] 1 1 Encounter Details Date Type Department Care Team (Late st Contact Info) Description 02/24/2016 7:43 PM EDT - 02/25/2016 5:00 PM EDT Emergency [address] [place] [address] Kole Ponce, [facility] [place] [address] Александр Everett MD [facility] [place] [address] Status post total knee replacement, right with Dr. Fleming (02/22/16); Post-operative pain; Aftercare following other joint replacement surgery; Presence of right artificial knee joint; Cigarette smoker; Encounter for long-term (current) use of aspirin; Encounter for long-term (current) use of other medications; Other nonmedicinal substance allergy status Discharge Disposition: Home with [facility]NA Social History Tobacco Use Types Packs/Day Years [...] Sign Reading Time Taken Comments Blood Pressure 143/88 02/25/2016 12:25 PM EDT Pulse 88 02/25/2016 2:30 AM EDT Temperature 36.8 ??C (98.2 ??F) 02/25/2016 12:25 PM E DT Respiratory Rate 16 02/25/2016 12:25 PM EDT Oxygen Saturation 94% 02/25/2016 12:25 PM EDT Inhaled Oxygen Concentration - - Weight 83 kg (183 lb) 02/25/2016 2:59 AM EDT Height 180.3 cm (5' 11) 02/25/2016 2:59 AM EDT Body Mass Index 25.52 02/25/2016 2:59 AM EDT documented in this encounter Discharge Summaries * Elba Jasso - 02/25/2016 2:26 PM EDT Discharge Summary Patient Name: Yvan Maddox Patient Age: 41 y.o. Language: Bulgarian Race: White Ethnicity: Not nor Admit date: 02/24/2016 Discharge date and time: 02/25/2016 Attending Physician: Александр Everett MD Discharge Physician: Александр Everett MD Follow-up Recommendations for Providers: Future Appointments Date Time Provider Department Center 03/26/2016 2:00 PM [facility] DX ROOM 4 Xray [facility] 03/26/2016 3:00 PM Dane Fleming MD [facility] 3C [facility] Inpatient Provider Contact Information: Dane Fleming MD Orthopedics: [phone] After hours and weekends, call [facility] Workers Compensation Examiner, , and have the Orthopedic resident paged.After hours and weekends, call [facility] Workers Compensation Examiner, , and have Orthopedic resident paged. Discharge Diagnoses (Hospital Problems) and Secondary Diagnoses (Chronic Problems): Active Hospital Problems Diagnosis ??? Right knee pain Resolved Hospital Problems Diagnosis Date Resolved No resolved problems to display. Active Non-Hospital Problems Diagnosis ??? Status post total knee replacement, right with Dr. Fleming (02/22/16) ??? Knee pain ??? Post-traumatic osteoarthritis of right knee ??? History of nasal surgery Operations/Major Procedures: * No surgery found * * Surgery not found * History of Presentation: Yvan Maddox is a 41 y.o. male who underwent a R TKA with Dr. Fleming on 02/22/2016. He was discharged home on 02/23/16. He reports that he awoke on AM of 02/23 with a large bruise on the medial aspect of his knee. Over the course of the day, the bruise became larger and his knee became more swollen and painful. He began to develop numbness on the top of his R foot and weakness with dorsiflexion. He den ies fevers, chills, myalgias. Denies redness or drainage from the wound. Has been taking 15mg oxycodone q3h at home without much relief. He also feels like he is unable to bend or straighten the kneedue to pain. Hospital Course: Pt was admitted for obs for pain s/p above procedure. Pain controlled and passed PT on HD2. Cleared for discharge home Vital Signs at Discharge: Weight: Wt Readings from Last 1 Encounters: 02/25/16 83 kg (183 lb) Height: Ht Readings from Last 1 Encounters: 02/25/16 180.3 cm (5' 11) HC: HC Readings from Last 1 Encounters: No data found for HC BMI: Body mass index is 25.52 kg/(m^2). Last value Range last 24 hrs Temperature Temp: 36.8 ??C (98.2 ??F) Temp: [36.7 ??C (98.1 ??F)-37.7 ??C (99.9 ??F)] Heart Rate Heart Rate: 88 Heart Rate: [81-109] Blood Pressure BP: 143/88 @pyhawyc06@ Respiratory Rate Resp: 16 Resp: [16-34] SpO2 SpO2: 94 % @srxwipae81@ Art BP BP (Arterial Line): -- Functional and Cognitive Status: Patient mobilizing with walker, cognitively intact at baseline mental status at time of discharge. Important Studies and Lab Data: none Studies: none Discharge Conditions/Prognosis: Stable, awake, and alert. Mobilizing with walker/crutches, pain controlled on oral medications. Discharge to: Home Updated Allergies/ADRs: Allergies Allergen Reactions ??? Hay [Grass Pollen[place], Standard] Hives Immunizations Given this Hospitalization: There is no immunization history on file for this patient. Discharge Medications: Your Medications New Medications Dose Details HYDROmorphone 2 mg Tab Commonly known as: DILAUDID Take 1-3 tablets by mouth every 3 hours as needed for Pain. 2-6 mg Quantity: 60 tablet Refills: 0 oxyCODONE 10 mg Tr12 Commonly known as: OxyCONTIN Take 1 tablet by mouth 2 times daily for 7 days. Replaces: oxyCODONE 5 mg Tab 10 mg Quantity: 14 tablet Refills: 0 Continued medications, unchanged Dose Details acetaminophen 500 mg Tab Commonly known as: TYLENOL Take 2 tablets by mouth every 8 hours. Around the clock until 03/03/16, and then as needed. DO NOT EXCEED 3000 mg tylenol in a 24 hour period. 1000 mg Refills: 0 aspirin 325 mg Tbec Take 1 tablet by mouth daily for 29 days. Take with food. 325 mg Quantity: 29 tablet Refills: 0 bisacodyl 10 mg Supp Commonly known as: DULCOLAX Place 1 suppository rectally daily as needed (constipation). 10 mg Refills: 0 diphenhydrAMINE 25 mg Cap Commonly known as: BENADRYL Take 25 mg by mouth every 6 hours as needed for Itching. 25 mg Refills: 0 gabapentin 300 mg Cap Commonly known as: NEURONTIN Take 1 capsule by mouth nightly for 26 days. 300 mg Quantity: 26 capsule Refills: 0 polyethylene glycol 17 gram Pwpk Commonly known as: MIRALAX Take 17 g by mouth 2 times daily as needed (bowel regimen/constipation.). 17 g Refills: 0 senna-docusate 8.6-50 mg Tab Commonly known as: PERICOLACE Take 2 tablets by mouth 2 times daily. Bowel regimen while on narcotics. 2 tablet Quantity: 60 tablet Refills: 2 STOPPED Medications oxyCODONE 5 mg Tab Commonly known as: ROXICODONE Replaced by: oxyCODONE 10 mg Tr12 Smoking Status at Discharge: History Smoking Status ??? Current Some Day Smoker ??? Packs/day: 0.50 ??? Types: Cigarettes Smokeless Tobacco ??? Current User ??? Types: Chew Comment: pt reports cutting back to 3 per day - no chew use since 02/06/16 Instructions Given to Patient at Discharge: There are no outpatient Patient Instructions on file for this admission. General Instructions Patient Instructions ?? Activity: 1. Your weight-bearing status is - weight bearing as tolerated of right leg. 2. Remember to use a walker or crutches as needed for balance and protection. Your physical therapist [...] pillow under the operated knee for comfort. ?? Anticoagulation: Aspirin - You are being discharged on enteric-coated Aspirin 81 mg by mouth twice a day. Continue this for 30 days. After your dose on 03/24/16 stop the Aspirin, unless you are told otherwise by your Orthopedic surgeon. Take this medication with food or large amounts (240 mL) of water or milk to minimize GI irritation. ?? Diet: Resume your usual diet but increase your intake of fluids and fiber while you are on narcoticpain meds to prevent constipation. ?? Driving: None until you are cleared to do so by your Orthopedic surgeon. You should not drive whileyou are on narcotic pain meds as they can affect your judgment and reaction time. Call your surgeonwith any questions/concerns. ?? Medications: 1. The pain medication you are on can cause constipation so increase your intake of fluids and fiber while you are on them. The stool softener, Pericolace, that has been prescribed can also be taken to facilitate a bowel movement. You can also take an dgoh-jvj-hidlxat medication, Miralax if needed to combat constipation. 2. If you need a renewal on your narcotic pain medication, you need to give the Orthopedic clinic enough time to process your request. This can take up to three days, so plan accordingly. 3. Continue acetaminophen (Tylenol) 1,000mg every 8 hours around the clock until 03/03/16 (for ten days after your surgery). This can be effective in controlling pain along with your other medications. After that you can take Tylenol as needed per package insert. Do not take more than 3,000mg of acetaminophen in a 24 hour period.. 4. You have been discharged on a short acting narcotic, oxycodone. You will be on this medication for a limited period of time only. Taper off this medication as your pain improves.. 5. You are being discharged on gabapentin (Neurontin), a non-narcotic medication that will help with your pain at night and allow you to sleep better. Take this at night for the next 4 weeks. ?? Shower (giulia/sutures): 1. You can shower but remember your activity limitations and always have a chair available for balance and protection. DO NOT submerge the dressing/incision. 2. (Mepilex) Do not let water run over the operative dressing. If it becomes wet lightly pat the dressing dry. DO NOT submerge the incision. 3. You have giulia/sutures. Always cover them with a waterproof dressing or plastic bag when showering until they are removed. 4. After giulia/sutures are removed you can let water run gently over the incision. ?? Wound (Mepilex): 1. Staple/suture removal 12-14 days after surgery (approximately ~03/07). 2. Do not lift the edge of the Mepilex dressing to inspect the incision, it will not re-adhere. Remove your operative dressing 7 days from your surgery (~02/28). When it is removed you can leave the incision open to air or cover it with a light dressing. 3. If you have lots of drainage when you get home (and it is before 02/28), remove this operative dressing and replace it with dry sterile gauze. Continue with daily dressing changes (and as needed) until the drainage stops, then remove the dressing and leave the incision open to air or lightly covered. ?? Misc: Remember that ICE and elevation are very important after surgery to help decrease swelling and control pain. Use ICE for 20-30 minutes at a time and keep your leg elevated as much as possible. ?? FOLLOW-UP APPOINTMENTS: 1. You will have follow-up appointments at [facility] as indicated below in Future Appointment and Orders. 2. You will need to have x-rays prior to your follow-up appointment. [facility] that appointment for those x-rays. ?? Future Appointments Date Time Provider Department Center 03/26/2016 2:00 PM [facility] DX ROOM 4 [facility] 03/26/2016 3:00 PM Dane Fleming MD [address] CLIN ? If you have questions or concerns: Friday through Friday, 8 AM - 5 PM, please call Dane Barakat MD's office at . If it is after 5 PM, the weekend, or holidays, please call and [facility] to [facility]. Future Appointments and Orders Future Appointments Provider Department Dept Phone 03/26/2016 2:00 PM [facility] DX ROOM 4 [facility] Xray [phone] Please go to [facility] ([place] Location). 03/26/2016 3:00 PM Dane Fleming MD Orthopaedics [phone] Primary Care Provider: JEFF LANE MD [phone] Discharge References/Attachments None documented in this encounter Discharge Instructions * Discharge Instructions* Elba Jasso R - 02/25/2016 2:29 PM EDT Patient Instructions ?? Activity: 1. Your weight-bearing status is - weight bearing as tolerated of right leg. 2. Remember to use a walker or crutches as needed for balance and protection. Your physical therapist [...] pillow under the operated knee for comfort. ?? Anticoagulation: Aspirin - You are being discharged on enteric-coated Aspirin 81 mg by mouth twice a day. Continue this for 30 days. After your dose on 03/24/16 stop the Aspirin, unless you are told otherwise by your Orthopedic surgeon. Take this medication with food or large amounts (240 mL) of water or milk to minimize GI irritation. ?? Diet: Resume your usual diet but increase your intake of fluids and fiber while you are on narcoticpain meds to prevent constipation. ?? Driving: None until you are cleared to do so by your Orthopedic surgeon. You should not drive whileyou are on narcotic pain meds as they can affect your judgment and reaction time. Call your surgeonwith any questions/concerns. ?? Medications: 1. The pain medication you are on can cause constipation so increase your intake of fluids and fiber while you are on them. The stool softener, Pericolace, that has been prescribed can also be taken to facilitate a bowel movement. You can also take an vhxe-leb-vitpjyp medication, Miralax if needed to combat constipation. 2. If you need a renewal on your narcotic pain medication, you need to give the Orthopedic clinic enough time to process your request. This can take up to three days, so plan accordingly. 3. Continue acetaminophen (Tylenol) 1,000mg every 8 hours around the clock until 03/03/16 (for ten days after your surgery). This can be effective in controlling pain along with your other medications. After that you can take Tylenol as needed per package insert. Do not take more than 3,000mg of acetaminophen in a 24 hour period.. 4. You have been discharged on a short acting narcotic, oxycodone. You will be on this medication for a limited period of time only. Taper off this medication as your pain improves.. 5. You are being discharged on gabapentin (Neurontin), a non-narcotic medication that will help with your pain at night and allow you to sleep better. Take this at night for the next 4 weeks. ?? Shower (giulia/sutures): 1. You can shower but remember your activity limitations and always have a chair available for balance and protection. DO NOT submerge the dressing/incision. 2. (Mepilex) Do not let water run over the operative dressing. If it becomes wet lightly pat the dressing dry. DO NOT submerge the incision. 3. You have giulia/sutures. Always cover them with a waterproof dressing or plastic bag when showering until they are removed. 4. After giulia/sutures are removed you can let water run gently over the incision. ?? Wound (Mepilex): 1. Staple/suture removal 12-14 days after surgery (approximately ~03/07). 2. Do not lift the edge of the Mepilex dressing to inspect the incision, it will not re-adhere. Remove your operative dressing 7 days from your surgery (~02/28). When it is removed you can leave the incision open to air or cover it with a light dressing. 3. If you have lots of drainage when you get home (and it is before 02/28), remove this operative dressing and replace it with dry sterile gauze. Continue with daily dressing changes (and as needed) until the drainage stops, then remove the dressing and leave the incision open to air or lightly covered. ?? Misc: Remember that ICE and elevation are very important after surgery to help decrease swelling and control pain. Use ICE for 20-30 minutes at a time and keep your leg elevated as much as possible. ?? FOLLOW-UP APPOINTMENTS: 1. You will have follow-up appointments at [facility] as indicated below in Future Appointment and Orders. 2. You will need to have x-rays prior to your follow-up appointment. Please come to Radiology, [facility], 1 hour BEFORE that appointment for those x-rays. ?? Future Appointments Date Time Provider Department Center 03/26/2016 2:00 PM [facility] DX ROOM 4 Xray [place] [facility] 03/26/2016 3:00 PM Dane Fleming MD [facility] Ortho 3C [place] [facility] ? If you have questions or concerns: Friday through Friday, 8 AM - 5 PM, please call Dane Barakat MD's office at . If it is after 5 PM, the weekend, or holidays, please call and ask to speak with theOrthopedic resident on-call. documented in this encounter Medications at Time of Discharge Medication Sig Dispensed Refills Start Date End Date HYDROmorphone (DILAUDID) 2 mg Tablet Take 1-3 tablets by mouth every 3 hours as needed for Pain. 60 tablet 02/25/2016 03/26/2016 oxyCODONE (OXYCONTIN) 10 mg tablet,oral only,ext.rel.12 hr Take 1 tablet by mouth 2 times daily for 7 days. 14 tablet 02/25/2016 02/28/2016 aspirin 325 mg Tablet, Delayed Release (E.C.) Take 1 tablet by mouth daily for 29 days. Take with food. 29 tablet 02/23/2016 03/23/2016 gabapentin (NEURONTIN) 300 mg Capsule Take 1 capsule by mouth nightly for 26 days. 26 capsule 02/24/2016 03/21/2016 acetaminophen (TYLENOL) 500 mg Tablet Take 2 tablets by mouth every 8 hours. Around the clock until 03/03/16, and then as needed. DO NOT EXCEED 3000 mg tylenol in a 24 hour period. 02/23/2016 06/17/2017 bisacodyl (DULCOLAX) [address] 1 suppository rectally daily as needed (constipation). 02/23/2016 03/26/2016 polyethylene glycol (MIRALAX) 17 gram Powder in Packet Take 17 g by mouth 2 times daily as needed (bowel regimen/constipation. ). 02/23/2016 03/26/2016 senna-docusate (PERICOLACE) 8.6-50 mg Tablet Take 2 tablets by mouth 2 times daily. Bowel regimen while on narcotics. 60 tablet 2 02/23/2016 03/26/2016 diphenhydrAMINE (BENADRYL) 25 mg Capsule Take 25 mg by mouth every 6 hours as needed for Itching. 03/07/2020 documented as of this encounter Progress Notes * Cassie Parrish RN - 02/25/2016 4:07 PM EDT Patient discharge to home. IV removed, site benign. My assessment remains unchanged from my previous assessment. Patient denies chest pain and shortness of breath. RN Discussed pain management with patient, pain tolerable. Patient medicated prior to discharge. Patient has all belongings. Patient received After Visit Summary. These were reviewed. All questions answered. Patient was encouraged to call with questions or concerns. Discharge packet and prescriptions given to patient. CASSIE PARRISH RN * Elba Jasso - 02/25/2016 6:36 AM EDT Orthopaedic Surgery H&P Attending: Dr. Everett Issue: R knee pain/hemarthrosis s/p R TKA 02/21 Subjective: Pain somewhat improved this morning. Denies calf pain Objective: Temp: [37.2 ??C (99 ??F)-37.7 ??C (99.9 ??F)] Heart Rate: [81-109] Resp: [18-34] BP: (120-142)/(64-114) SpO2: [93 %-100 %] Heart Rate from SPO2: [82 bpm-109 bpm] Gen- Appears in pain, awake, alert CV- RRR checked peripherally Pulm- No incr WOB Psych- Nl mood and affect Right Lower Extremity Exam- Surgical incision closed with giulia without surrounding erythema or drainage. There is an ecchymosis approximately 6 cm in diameter on the medial aspect of the knee. Skin is warm to touch. The kneeis quite swollen and TTP diffusely from the tibial tubercle up into the thigh. Calf nontender this morning Sensation intact to light touch in Saphenous/Sural/LFC/Femoral/MP/LP/T/DP distributions. Diminishedsensation in DP distribution Motor intact (5/5) hip flexion/extension, ankle planar flexion, EHL/FHL. Difficult dorsiflexion 2/2pain Brisk capillary refill distally 2+ DP/PT pulses Labs: Last 3 wbc, hgb, hct plt Recent Labs 02/24/16200602/23/168 02/19/16 1300 WBC 14.6* 20.7* 10.8* HGB 12.1* 13.9 14.8 HCT 36.5* 42.2 45.4 PLATELET 276 301 290 Last 3 Lytes Recent Labs 02/24/16200602/23/1632702/19/16 1300 NA 133* 136 142 K 3.5 4.4 4.6 CL 96* 101 104 CO2 24 21* 25 BUN -- 16 8* CREATININE -- 0.78* 0.98 Last 3 Coags No results for input(s): PT, INR, PTT in the last 168 hours. Imaging: Xray R knee: No hardware complications Bedside duplex: No evidence of DVT, large amount of fluid in knee, blood appearing. Assessment/Plan: 41 y.o. male s/p R TKA 02/22/16 re-admit for observation to Orthopaedics for pain control, hopefully official Duplex DVT studies, and working with PT. - Activity- WBAT RLE - DVT prophylaxis- ASA 325mg BID - Antibiotics: None - Diet - Regular - Pain control - Oxycontin, PO dilaudid, IV dilaudid PRN * Edna Bass RN - 02/25/2016 4:35 AM EDT Patient arrived to floor via bed. Patient A&O x 3, lungs clear, heart rate regular. Patient haspositive bowel sounds and states their last BM was on 02/23/16. Patient has a incision with giulia to right knee, noted to be clean dry and intact. Patient states their pain level is 10/10. Patient denies chest pain, shortness of breath, numbness or tingling. Patient oriented to room, call alcazar, IS. Will continue to monitor. Edna Bass RN documented in this encounter H&P Notes * Ian Mustafa MD - 02/25/2016 2:19 AM EDT Orthopaedic Surgery H&P Attending: Dr. Everett Yvan Maddox is a 41 y.o. male who presents to see us in consultation today at the request of Kole Ponce DO. Chief Complaint: R knee pain s/p R TKA History of Present Illness: Yvan Maddox is a 41 y.o. male who underwent a R TKA with Dr. Fleming on 02/22/2016. He was discharged home on 02/23/16. He reports that he awoke on AM of 02/23 with a large bruise on the medial aspect of his knee. Over the course of the day, the bruise became larger and his knee became more swollen and painful. He began to develop numbness on the top of his R foot and weakness with dorsiflexion. He denies fevers, chills, myalgias. Denies redness or drainage from the wound. Has been taking 15mg oxycodone q3h at home without much relief. He also feels like he is unable tobend or straighten the knee due to pain. Past Medical History: Patient Active Problem List Diagnosis Code ??? Post-traumatic osteoarthritis of right knee M17.31 ??? History of nasal surgery Z98.890 ??? Knee pain M25.569 ??? Status post total knee replacement, right with Dr. Fleming (02/22/16) Z96.651 ??? Right knee pain M25.561 Past Surgical History: Past Surgical History Procedure Laterality Date ??? Pro total knee arthroplasty Right 02/22/2016 @TOTAL KNEE ARTHROPLASTY performed by Dane Fleming MD at [facility] MAIN OR Allergies Allergen Reactions ??? Hay [Grass Pollen-[place], Standard] Hives No current facility-administered medications on file prior to encounter. Current Outpatient Prescriptions on File Prior to Encounter Medication Sig Dispense Refill ??? acetaminophen (TYLENOL) 500 mg Tablet Take 2 tablets by mouth every 8 hours. Around the clock until 03/03/16, and then as needed. DO NOT EXCEED 3000 mg tylenol in a 24 hour period. ??? aspirin 325 mg Tablet, Delayed Release (E.C.) Take 1 tablet by mouth daily for 29 days. Take with food. 29 tablet 0 ??? bisacodyl (DULCOLAX) [address] 1 suppository rectally daily as needed (constipation). ??? gabapentin (NEURONTIN) 300 mg Capsule Take 1 capsule by mouth nightly for 26 days. 26 capsule 0 ??? oxyCODONE (ROXICODONE) 5 mg Tablet Take 1-3 tablets by mouth every 3 hours as needed for Pain. Take the smallest dose possible to control your pain. As your pain improves, take smaller doses and increase the time between doses. You may break the tablet to achieve a smaller dose. 90 tablet 0 ??? polyethylene glycol (MIRALAX) 17 gram Powder in Packet Take 17 g by mouth 2 times daily as needed (bowel regimen/constipation.). ??? senna-docusate (PERICOLACE) 8.6-50 mg Tablet Take 2 tablets by mouth 2 times daily. Bowel regimen while on narcotics. 60 tablet 2 ??? diphenhydrAMINE (BENADRYL) 25 mg Capsule Take 25 mg by mouth every 6 hours as needed for Itching. Family History: Negative for bleeding/clotting disorders or anesthetic complications. Social History Social History ??? Marital status: Spouse name: N/A ??? Number of children: N/A ??? Years of education: N/A Occupational History ??? Not on file. Social History Main Topics ??? Smoking status: Current Some Day Smoker Packs/day: 0.50 Types: Cigarettes ??? Smokeless tobacco: Current User Types: Chew Comment: pt reports cutting back to 3 per day - no chew use since 02/06/16 ??? Alcohol use No ??? Drug use: Yes Special: Marijuana ??? Sexual activity: Not on file Other Topics Concern ??? Not on file Social History Narrative Review of Systems: Denies CP/SOB/VAZ/abdominal pain/dysuria/myalgias Objective: Temp: [37.3 ??C (99.1 ??F)-37.7 ??C (99.9 ??F)] Heart Rate: [81-109] Resp: [19-34] BP: (120-142)/(64-114) SpO2: [93 %-100 %] Heart Rate from SPO2: [82 bpm-109 bpm] Gen- Appears in pain, awake, alert CV- RRR checked peripherally Pulm- No incr WOB Psych- Nl mood and affect Right Lower Extremity Exam- Surgical incision closed with giulia without surrounding erythema or drainage. There is an ecchymosis approximately 6 cm in diameter on the medial aspect of the knee. Skin is warm to touch. The kneeis quite swollen and TTP diffusely from the tibial tubercle up into the thigh. TTP in the posteriorcalf and posterior thigh. Unable to straighten or flex the knee 2/2 to pain and perceived weakness. Sensation intact to light touch in Saphenous/Sural/LFC/Femoral/MP/LP/T/DP distributions. Diminishedsensation in DP distribution Motor intact (5/5) hip flexion/extension, ankle planar flexion, EHL/FHL. Difficult dorsiflexion Brisk capillary refill distally 2+ DP/PT pulses Labs: Last 3 wbc, hgb, hct plt Recent Labs 02/24/16200602/23/1632702/19/16 1300 WBC 14.6* 20.7* 10.8* HGB 12.1* 13.9 14.8 HCT 36.5* 42.2 45.4 PLATELET 276 301 290 Last 3 Lytes Recent Labs 02/24/16200602/23/1632702/19/16 1300 NA 133* 136 142 K 3.5 4.4 4.6 CL 96* 101 104 CO2 24 21* 25 BUN -- 16 8* CREATININE -- 0.78* 0.98 Last 3 Coags No results for input(s): PT, INR, PTT in the last 168 hours. Imaging: Xray R knee: No hardware complications Bedside duplex: No evidence of DVT, large amount of fluid in knee, blood appearing. Assessment/Plan: 41 y.o. male s/p R TKA 02/22/16 who presents with uncontrollable pain and difficulty mobilizing at home. In the Emergency room was given IV dialudid and PO dilaudid without relief. Asit is POD#2, likely too early to consider infection as etiology and WBC is decreased. Limited utility of CRP/ESR this acutely from surgery. Will admit observation to Orthopaedics for pain control, hopefully official Duplex DVT studies, and working with PT. A - Activity- WBAT RLE - DVT prophylaxis- ASA 325mg BID - Antibiotics: None - Diet - Regular - Pain control - Oxycontin, PO dilaudid, IV dilaudid PRN - Discuss with Dr. Karlos Mustafa MD Orthopaedic Surgery Pager: [phone] documented in this encounter ED Notes * Monica Cordova RN - 02/25/2016 2:36 AM EDT 0032; Patient reports pain is unchanged, Orthopedics at bedside. Dr. Lyle updated. 0040; Ice placed to right knee with towel in between, NAD. Appears uncomfortable. 0133; No relief of pain with medication, NAD. 0140; Spoke with orthopedics regarding pain control, will admit patient. 0155; Updated on plan of care, pending admission. 0233; Medicated with effects pending at max PO dose by JOSE DE JESUS Sewell. * Jamin Lyle MD - 02/24/2016 8:36 PM EDT Yvan Maddox is an 41 y.o. male who presents to the ED with: Chief Complaint Patient presents with ??? Post-op Problem infection I saw this patient 02/24/2016 at 8:36 PM HPI Yvan Maddox is a 41 y.o. male who presents to the Emergency Department with right knee pain. Patient and recent knee replacement at this hospital 2 days ago and presents the emergency department today with worsening swelling, pain of his right knee with paresthesias and difficulty using his lower extremity. Patient states that he was doing well until earlier today when he noted the swelling began worsening with associated worsening pain. He endorses paresthesias running down his right leg and has difficulty moving his right foot as well. Review of Systems: Review of Systems Constitutional: Negative for activity change, diaphoresis and fever. HENT: Negative for congestion, rhinorrhea and trouble swallowing. Eyes: Negative for visual disturbance. Respiratory: Negative for cough, chest tightness and shortness of breath. Cardiovascular: Negative for chest pain and palpitations. Gastrointestinal: Negative for abdominal distention, abdominal pain, constipation, diarrhea, nauseaand vomiting. Genitourinary: Negative for dysuria. Musculoskeletal: Positive for arthralgias and joint swelling. Skin: Negative. Neurological: Negative for dizziness, speech difficulty and headaches. Psychiatric/Behavioral: Negative. Patient Vitals for the past 24 hrs: BP Temp Temp src Pulse Resp SpO2 02/24/16 1938 128/76 37.7 ??C (99.9 ??F) Oral 90 28 100 % Physical Exam: Physical Exam Constitutional: He is oriented to person, place, and time. He appears well- developed and well-nourished. No distress. HENT: Head: Normocephalic and atraumatic. Right Ear: External ear normal. Left Ear: External ear normal. Nose: Nose normal. Mouth/Throat: Oropharynx is clear and moist. Eyes: Conjunctivae are normal. Pupils are equal, round, and reactive to light. Right eye exhibits no discharge. Left eye exhibits no discharge. No scleral icterus. Neck: Normal range of motion. No tracheal deviation present. Cardiovascular: Normal rate, regular rhythm and normal heart sounds. Exam reveals no gallop and no friction rub. No murmur heard. Pulmonary/Chest: Effort normal and breath sounds normal. No respiratory distress. He has no wheezes. He has no rales. He exhibits no tenderness. Abdominal: Soft. He exhibits no distension and no mass. There is no tenderness. There is no reboundand no guarding. No hernia. Musculoskeletal: Normal range of motion. He exhibits no edema or deformity. Neurological: He is alert and oriented to person, place, and time. He exhibits normal muscle tone. Coordination normal. Skin: Skin is warm and dry. No rash noted. He is not diaphoretic. No erythema. No pallor. Psychiatric: He has a normal mood and affect. Nursing note and vitals reviewed. ED Course: - Patient was evaluated and discussed with Dr. Ponce - Medications, allergies and past medical history reviewed Assessment and Plan: Assessment: 41 y.o. male with right knee pain. Ultrasound performed at the bedside here today did not demonstrate any DVT in the proximal right lower extremity. Hypoechoic regions likely representingfluid collection with possible clotting. Over the course of the emergency room stay patient received 3 mg IV Dilaudid and then was transitioned to by mouth Dilaudid with initial dose of 2 mg given atthe time of this note. Patient with improving symptoms with improved sensation in the lower extremity with ability to dorsi and plantarflex. Plan at the time of this note for continued by mouth Dilaudid administration to determine if patient is sufficiently pain controlled for discharge to home vers us admission for pain control. Patient signed out to Dr. Darvin Corral at the time of this note. Jamin Lyle MD Resident 02/25/16 0017 Associated attestation - Kole Ponce DO - 02/26/2016 10:28 AM EDT ED ATTENDING ATTESTATION NOTE The patient was seen in conjunction with Dr. Lyle, the resident physician. I have independently performed the rivero portions of the history and physical exam. I have reviewed the nursing notes, vitalsigns, and all diagnostic studies personally including labs, imaging studies and EKGs. I have discussed the details of the case with the resident and agree with the assessment and plan as described in the resident note above unless noted otherwise below. Brief Summary: Pt presents with progressive right knee pain and swelling throughout the day after release from hospital yesterday s/p total right knee. On exam knee is swollen and painful to touch. There is moderate calf and mild foot swelling which are unchanged from procedure and soft compartments. Pain extends to mid thigh. No cp, sob, fevers. Xray without dislodgment of hardware. Vascular labunavailable so bedside US was performed and negative which makes DVT less likely. Large hematoma noted in knee joint. Pt and ortho know bedside is not definitive in high risk pt and will need inpt/outpt US. Orthopedics consulted and pain controlled with multiple rounds of dilaudid. Pt with improved pain control and now able to dorsi and plantar flex foot well. Based on dropping wbc, not hot or red, and so close post op unlikely infection and more likely hemorrhage. Pt hemodynamically stable andpt signed out to Dr. Mohr pending final ortho recs and adequate pain control if DC is recommended. Final Assessment: Post op Knee pain Bedside Ultrasound During ED Visit: Point of care emergency department limited ultrasound of the lower extremity: Indication: Lower extremity Swelling and pain. Procedure in Detail: Using the Transducers: Linear transducer, the right common femoral vein was examined at the level of the inguinal ligament and 10 centimeters distally. At 1 cm increments, the vein demonstrated Vein Collapse: Complete Collapse with compression. Next, the right popliteal vein was compressed at 1 cm increments along its length in the popliteal fossa and demonstrated Vein Collapse: Complete Collapse with compression. Other findings or limitations: None Conclusion: Point of care limited ultrasound without evidence of a deep vein thrombosis. This study was performed by an ultrasound credentialed emergency physician. These images were archived digitally and I independently interpreted the images at the bedside and agree with the documented results. documented in this encounter Miscellaneous Notes * Initial Assessments - Hallie Burr, PT - 02/25/2016 3:19 PM EDT Physical Therapy Evaluation Patient profile: Patient is a 41 y.o. male re-adm 1 day after home d/c from a r TKA. Pt initially progressed well and had d/c'd to home on POD#1. Experienced sudden onset of intense R knee pain and edema at the surgical site, reported to ED for assessment PMH: No past medical history on file. Past Surgical History Procedure Laterality Date ??? Pro total knee arthroplasty Right 02/22/2016 @TOTAL KNEE ARTHROPLASTY performed by Dane Fleming MD at [facility] MA[facility] OR Social History: Patient lives with his significant other in a home with 10 LETTY. Significant other and family members will be available for support as needed after d/c. 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 DME: cane ?? Precautions/Special Considerations: full code, B LE WBAT Subjective: It's much better today, that's for certain Objective: Pt was seen for initial assessment Pain: 4 - 10/26 Vital Signs: ??? Sp02: 98% on RA ??? HR: 80s ??? BP: Nt Mental Status/Behavior: A+ox3 Strength: wfl, + slr ROM: wfl Sensation: intact Skin: intact Posture: wnl Bed Mobility: independent Transfers: ? ? Sit <-> Stand independent with RW Gait: ??? Pt. ambulated 75' x 2 with RW, independently ??? VC for heel strike, TKE Balance: grossly wfl Education: Role of PT, POC, Goals of Rx, Anticipated D/c recommendations, activity progression Patient status, treatment, and mobility recommendations discussed with nursing/pt/family. Assessment: Pt is clear for d/c to home from PT perspective. Recommend pt continue to amb with RW as tolerated, Home PT at d/c. Pt in agreement. Please re-consult if further needs arise. Plan/Discharge Recommendations: Pt has demonstrated sufficient independence and safety for d/c to home from PT perspective, when medically appropriate. Recommend continue to Home PT per goals of TKA Total time spent with patient: 23 minutes (IE) Total timed interventions: 0 minutes Pager: [phone] HALLIE BURR PT Physical Therapy Rehabilitation Department * Plan of Care - Edna Bass RN - 02/25/2016 5:15 AM EDT Problem: General Plan of Care Goal: Plan of Care Review Outcome: Ongoing (Interventions Implemented as Appropriate) 02/25/16 0507 Coping/Psychosocial Response Interventions Plan of Care Reviewed with patient Plan of Care Review Plan of Care Outcome Status ongoing (interventions implemented as appropriate) Progress no change OUTCOME EVALUATION NOTE: OUTCOME SUMMARY: Patient resting in bed after being admitted from ED. A & O x 4, VSS. Incision to right knee well approximated and closed with giulia. Plan of care reviewed with patient, voiced understanding. Noc/o SOB, cp or n/v. No s/s of acute distress. Will continue to monitor. PLAN MOVING FORWARD: -[X]Pain Control -[X]Mobilize -[X]ongoing discharge planning INDIVIDUALIZED FALL PREVENTION: Patient has history of: No past medical history on file. Patient has following SCHEDULED medications: ??? acetaminophen 1,000 mg Oral Q8H ??? aspirin 325 mg Oral Daily ??? gabapentin 300 mg Oral Nightly ??? senna-docusate 2 tablet Oral BID ??? sodium chloride 0.9 % 5 mL Intravenous BID ??? celecoxib 200 mg Oral BID ??? dexamethasone 4 mg Oral Daily ??? multivitamin Mplu-Lh-ZO-Min 1 tablet Oral Daily ??? oxyCODONE 10 mg Oral 2 times per day Patient has following PRN medications: bisacodyl, diphenhydrAMINE, polyethylene glycol, sodium chloride 0.9 %, lidocaine, HYDROmorphone, ondansetron OR ondansetron, HYDROmorphone Assistance: -1-assist with walker Supervision: -[X]Hands-on for all transfers and ambulation -[]Eyes-on for all transfers and ambulation -[]Arms-Reach for all transfers and ambulation Surveillance: -[X]Bed Alarm/Chair Alarm -[X]Purposeful Rounding -[X]Team Care -[X]Bedside Nurse Knowledge Exchange CPG OUTCOME EVALUATION: Goal: Individualization and Mutuality Outcome: Ongoing (Interventions Implemented as Appropriate) 02/25/16315 Mutuality/Individual Preferences What anxieties, fears or concerns do you have about your health or care? none What questions do you have about your health or care? none What information would help us give you more personalized care? none Goal: Fall Prevention-Safe Patient Handling Outcome: Ongoing (Interventions Implemented as Appropriate) 02/25/1631502/25/16506 Safety Interventions Safety Precautions/Fall Reduction -- commode/urinal/bedpan at bedside;environmental modification;fall reduction program maintained;lighting adjusted for task/safety;nonskid shoes/slippers when out ofbed;room near unit station Musculoskeletal Interventions Self-Care Promotion -- independence encouraged while providing assistance Activity and Safety Assistive Device -- Four wheel walker Frye Fall Risk History of Falling 25 -- Secondary Diagnosis 15 -- Ambulatory Aids 0 -- Intravenous Therapy/Heparin/Saline Lock 20 -- Gait/Transferring 10 -- Mental Status 0 -- Score 70 -- OTHER Frye Fall Risk High -- Goal: Infection Control Outcome: Ongoing (Interventions Implemented as Appropriate) 02/25/16506 Safety Interventions Isolation Precautions standard precautions maintained Infection Prevention rest/sleep promoted Coping/Psychosocial Response Interventions Counseling emotional support provided Goal: Discharge Needs Assessment Outcome: Ongoing (Interventions Implemented as Appropriate) 02/25/1631502/25/16506 Discharge Needs Assessment Concerns to be Addressed -- no discharge needs identified Readmission Within the Last 30 Days -- other (see comments) (complication from TKA) Equipment Needed After Discharge -- walker, rolling Current Discharge Risk -- physical impairment Current Health Anticipated Changes Related to Illness -- none Self-Care Equipment Currently Used at Home -- walker, rolling Living Environment Transportation Available car;family or friend will provide -- Problem: Skin Integrity Impairment, Risk/Actual (Adult, Obstetrics) Goal: Identify Signs and Symptoms and Related Risk Factors Signs and symptoms and related risk factors are identified upon initiation of Human Response Clinical Practice Guideline (CPG) Outcome: Ongoing (Interventions Implemented as Appropriate) 02/25/16 0507 Skin Integrity Impairment, Risk/Actual Treatment Related Related Risk Factors (Skin Integrity Impairment, Risk/Actual) surgery Goal: Skin Integrity/Wound Healing Patient will demonstrate the desired outcomes. Outcome: Ongoing (Interventions Implemented as Appropriate) 02/25/16 0507 Skin Integrity Impairment, Risk/Actual (Adult, Obstetrics) Skin Integrity/Wound Healing making progress toward outcome * ED Triage - Melodie Gaming RN - 02/24/2016 7:40 PM EDT Pt s/p total knee on right side . State he was fine yesterday, today knee grossly swollen, warm to touch and very painful. it feel like my leg is on fire. Pt hyperventilating in triage. documented in this encounter Plan of Treatment Not on file documented as of this encounter Procedures Procedure Name Priority Date/Time Associated Diagnosis Comments XR KNEE AP & LAT RIGHT STAT 02/24/2016 9:07 PM EDT HEMOGRAM STAT 02/24/2016 8:07 PM EDT DIFFERENTIAL, AUTOMATED STAT 02/24/2016 8:07 PM EDT BLUE TUBE HOLD STAT 02/24/2016 8:07 PM EDT CBC (WITH DIFF) STAT 02/24/2016 8:07 PM EDT ELECTROLYTES PANEL STAT 02/24/2016 8: 07 PM EDT BLOOD GAS VENOUS POC Routine 02/24/2016 8:06 PM EDT documented in this encounter Results * XR Knee 1-2 Views Right (Generic) (02/24/2016 9:07 PM EDT) Anatomical Region Laterality Modality Knee Right Digital Radiogra phy Impressions 02/24/2016 9:11 PM EDT Status post recent right TKA without radiographic evidence of complication. Narrative 02/24/2016 9:11 PM EDT EXAMINATION: XR KNEE 1-2 VIEWS RIGHT (GENERIC) CLINICAL HISTORY: post op swelling TECHNIQUE: AP and lateral views right knee COMPARISON: Three views right knee 09/25/2015. FINDINGS: The patient is status post right total knee arthroplasty. No periprosthetic fracture or malalignment is seen. There is a joint effusion, soft tissue swelling with bubbles of soft tissue gas and overlying skin giulia all consistent with very recent surgery. Procedure Note Christian Suero MD - 02/24/2016 EXAMINATION: XR KNEE 1-2 VIEWS RIGHT (GENERIC) CLINICAL HISTORY: post op swelling TECHNIQUE: AP and lateral views right knee COMPARISON: Three views right knee 09/25/2015. FINDINGS: The patient is status post right total knee arthroplasty. Noperiprosthetic fracture or malalignment is seen. There is a joint effusion, soft tissue swelling with bubbles of soft tissue gas and overlying skin giulia all consistent with very recent surgery. IMPRESSION Status post recent right TKA without radiographic evidence ofcomplication. Kole Ponce DO IMG DX ORDERABLES * Blue Tube HOLD (02/24/2016 8:07 PM EDT) Nano Walker Blue Hold Sample in lab. [facility] Blood specimen (specimen) Venous Draw / Unknown 02/24/2016 8:07 PM EDT 02/24/2016 8:09 PM EDT Kole Ponce DO HEMATOLOGY ORDERABLE S [facility] [place] [address] * (ABNORMAL) Differential, Automated (02/24/2016 8:07 PM EDT) Nano Walker Neutrophil % 67.9 % [facility] Neutrophil Absolute 9.89(H) 1.70 - 6.10 x10(3)/ L [facility] Lymph % 18.9 % [facility] Lymphocytes Abs 2.8 0.9 - 3.2 x10(3)/ L [facility] Monocyte % 9.7 % [facility] Monocyte Abs 1.4(H) 0.3 - 0.9 x10(3)/ L [facility] Eos % 2.2 % [facility] Eosinophils Abs 0.3 0.0 - 0.4 x10(3)/[facility] Basophil % 0.3 % [facility] Baso Absolute 0.0 0.0 - 0.1 x10(3)/[facility] Immature Gran % 1.00 % [facility] Comment: Immature granulocytes(IG's)percentage and absolute count will include metamyelocytes, myelocytes, and promyelocytes. Blood smears from CBCs yielding IG's will be scanned manually for concordance. If this scan disagrees with the automated IG or if promyelocytes are noted, a manual differential will be performed. Immature Gran Absolute 0.14(H) 0.00 - 0.04 x10(3)/ L [facility] Blood specimen (specimen) 02/24/2016 8:07 PM EDT 02/24/2016 8:09 PM EDT Narrative Resulting Agency Comment Spec In Lab Kole Ponce DO HEMATOLOGY ORDERABLE S [facility] [place] [address] * (ABNORMAL) Hemogram (02/24/2016 8:07 PM EDT) White Blood Cell 14.6(H) 4.0 - 9.5 x10(3)/ L [facility] Red Blood Cell 4.09(L) 4.58 - 5.54 x10(6)/mc L [facility] Hemoglobin 12.1(L) 13.7 - 16.5 gm/dL [facility] Hematocrit 36.5(L) 40.5 - 48.5 % [facility] Mean Cell Volume 89.2 82.9 - 93.1 fL [facility] Mean Cell Hemoglobin 29.6 27.5 - 32.1 pg [facility] Mean Cell Hemoglobin Concentration 33.2 32.0 - 35.7 gm/dL [facility] Platelet 276 145 - 357 x10(3)/mc L [facility] RDW Standard Deviation 44.2 36.0 - 45.0 [facility] RDW coefficient of variation 13.6 11.4 - 13.8 % [facility] Mean Platelet Volume 9.8 7.6 - 12.9 fL [facility] NRBC% auto 0.0 % [facility] NRBC Absolute 0.000 0.000 - 0.000 x10(3)/mc L [facility] Blood specimen (specimen) 02/24/2016 8:07 PM EDT 02/24/2016 8:09 PM EDT Narrative Resulting Agency Comment Spec In Lab Kole Ponce DO HEMATOLOGY ORDERABLE S Performing Organization Address City/State/[facility] Co de Phone Number [facility] [place] [address] * (ABNORMAL) Electrolytes panel (02/24/2016 8:07 PM EDT) Sodium 133(L) 135 - 145 mmol/L [facility] Potassium 3.5 3.5 - 5.0 mmol/L [facility] Comment: Please note: ??Patients with WBC >100,000 may have falsely elevated Potassium levels. ??For accurate Potassium quantification in these patients send serum separator tube (gold top) for subsequent determinations. ??Contact the Clinical Chemistry Laboratory if there are any questions. Chloride 96(L) 98 - 107 mmol/L [facility] Carbon Dioxide 24 22 - 31 mmol/L [facility] Anion Gap 13 5 - 15 mmol/L [facility] Blood specimen (specimen) 02/24/2016 8:07 PM EDT 02/24/2016 8:09 PM EDT Narrative Resulting Agency Comment Spec In Lab Kole Ponce DO CHEMISTRY ORDERABLES [facility] [place] [address] * (ABNORMAL) BLOOD GAS 2 VENOUS (02/24/2016 8:06 PM EDT) pH, Venous 7.50(H) 7.32 - 7.42 [facility] PCO2, Venous 34(L) 41 - 51 mmHg [facility] PO2, Venous 21(L) 25 - 40 mmHg [facility] Bicarbonate, Venous 26.2 mmol/L [facility] Base Excess, Venous 3.3 mmol/L [facility] Hgb Blood Gas 13.3(L) 13.7 - 16.5 gm/dL [facility] Oxyhemoglobin, Venous 41.6 % [facility] Carboxyhemoglob in, Venous 1.3 % [facility] Comment: Nonsmokers: 0.5-1.5% COHB Smokers: Variable, but usually less than 10% Toxic: 20-30% COHB Lethal: Greater than 60% COHB Methemoglobin, Venous 0.1 <=1.5 % [facility] Na Whole Blood 137 135 - 145 mmol/L [facility] K Whole Blood 3.5 3.5 - 5.0 mmol/L [facility] Comment: Please note: Patients with WBC >100,000 may have falsely elevated Potassium levels. Contact the Clinical Chemistry Laboratory if there are any questions. ICa Whole Blood 1.17 1.15 - 1.33 mmol/L [facility] Comment: Note: ??Total bilirubin higher than 20 mg/dL may lead to falsely low ionized calcium. CL Whole Blood 101 98 - 107 mmol/L [facility] Gluc Whole Bld 95 65 - 199 mg/dL [facility] Comment:Diabetes: >=200 mg/d L plus symptoms Lactate WB 2.5(H) 0.5 - 2.2 mmol/L [facility] Blood Gas Source Venous [facility] Temperature, Venous 37.7 Celsius [facility] Blood specimen (specimen) 02/24/2016 8:06 PM EDT 02/24/2016 8:06 PM EDT Emergency Dept POINT OF CARE TEST ORDERABLES Performing Organization Address City/State/[facility] Co de Phone Number [facility] [place] [address] documented in this encounter Visit Diagnoses Diagnosis Status post total knee replacement, right with Dr. Fleming (02/22/16) Post-operative pain Other acute postoperative pain Aftercare following other joint replacement surgery Presence of right artificial knee joint Knee joint replacement by other means Cigarette smoker Tobacco use disorder Encounter for long-term (current) use of aspirin Other nonmedicinal substance allergy status Right knee pain Pain in joint, lower leg documented in this encounter Admitting Diagnoses Diagnosis Right knee pain Pain in joint, lower leg documented in this encounter Administered Medications Inactive Administered Medications - up to 3 most recent administrations Medication Order MAR Action Action Date Dose Rate Site acetaminophen (TYLENOL) tablet 1,000 mg 1,000 mg, Oral, EVERY 8 HOURS, First dose on 02/25/16 at 0600, Until Discontinued, Maximum dose of acetaminophen is 4000 mg from all sources in 24 hours., Routine Given 02/25/2016 3:03 PM EDT 1,000 mg Given 02/25/2016 5:39 AM EDT 1,000 mg acetaminophen (TYLENOL) tablet 650 mg 650 mg, Oral, ONCE, 1 dose, On 02/24/16 at 2021, Maximum dose of acetaminophen is 4000 mg from all sources in 24 hours., STAT Given 02/24/2016 8:29 PM E DT 650 mg aspirin EC tablet 325 mg 325 mg, Oral, DAILY, First dose on 02/25/16 at 0900, Until Discontinued, Routine Given 02/25/2016 9:09 AM EDT 325 mg celecoxib (CeleBREX) capsule 200 mg 200 mg, Oral, 2 TIMES DAILY, First dose on 02/25/16 at 0900, Until Discontinued, Routine Given 02/25/2016 9:08 AM EDT 200 mg dexamethasone (DECADRON) tablet 4 mg 4 mg, Oral, DAILY, 2 doses, First dose on 02/25/16 at 0900, Last dose on 02/26/16 at 0900, Routine Given 02/25/2016 9:08 AM EDT 4 mg HYDROmorphone (DILAUDID) injection 0.3 mg 0.3 mg, Intravenous, EVERY 2 HOURS PRN, Starting on 02/25/16 at 0237, Until 02/25/16 at 1900, Pain, Breakthrough pain 9-10 only., Routine HYDROmorphone (DILAUDID) injection 0.5 mg 0.5 mg, Intravenous, ONCE, 1 dose, On 02/24/16 at 2022, STAT Given 02/24/2016 8:23 PM EDT 0.5 mg HYDROmorphone (DILAUDID) injection 1 mg 1 mg, Intravenous, ONCE, 1 dose, On 02/24/16 at 2212, STAT Given 02/24/2016 10:13 PM EDT 1 mg HYDROmorphone (DILAUDID) injection 2 mg 2 mg, Intravenous, ONCE, 1 dose, On 02/25/16 at 0236, STAT Given 02/25/2016 3:16 AM EDT 2 mg HYDROmorphone (DILAUDID) tablet 2 mg 2 mg, Oral, ONCE, 1 dose, On 02/24/16 at 2331, STAT Given 02/24/2016 11:46 PM EDT 2 mg HYDROmorphone (DILAUDID) tablet 2 mg 2 mg, Oral, ONCE, 1 dose, On 02/25/16 at 0042, STAT Given 02/25/2016 12:42 AM EDT 2 mg HYDROmorphone (DILAUDID) tablet 2-6 mg 2-6 mg, Oral, EVERY 3 HOURS PRN, Starting on 02/25/16 at 0213, Until 02/25/16 at 1900, Pain, Give 2 mg for mild pain (1-4), 4 mg for moderate pain (5-7) or 6 mg for severe pain (8-10), Routine Given 02/25/2016 3:38 PM EDT 4 mg Given 02/25/2016 12:26 PM EDT 4 mg Given 02/25/2016 9:08 AM EDT 2 mg multivitamin Bwhy-Zu-RJ-Min (THERAPEUTIC-M) 27-0.4 mg tablet 1 tablet 1 tablet, Oral, DAILY, First dose on 02/25/16 at 0900, Until Discontinued Given 02/25/2016 9:08 AM EDT 1 tablet ondansetron (ZOFRAN) injection 4 mg 4 mg, Intravenous, EVERY 8 HOURS PRN, Starting on 02/25/16 at 0214, Until 02/25/16 at 1900, Nausea, May repeat times one in 30 minutes if ineffective. If multiple antiemetics are ordered, use ondanstron first, Recovery (Recovery-Hospital Unit) ondansetron (ZOFRAN) tablet 4 mg 4 mg, Oral, EVERY 8 HOURS PRN, Starting on 02/25/16 at 0214, Until 02/25/16 at 1900, Nausea, Vomiting, If multiple antiemetics are ordered, use ondansetron first. PO Preferred. If patient unable to take PO, may give IV if ordered. May repeat times one in 45 minutes if ineffective., Recovery ([facility] Unit), Routine oxyCODONE (OxyCONTIN) CR tablet 10 mg 10 mg, Oral, EVERY 12 HOURS SCHEDULED (2 times per day), First dose on 02/25/16 at 0900, Until Discontinued, DO NOT CRUSH OR OPEN, Routine Given 02/25/2016 9:08 AM EDT 10 mg senna-docusate (PERICOLACE) 8.6-50 mg per tablet 2 tablet 2 tablet, Oral, 2 TIMES DAILY, First dose on 02/25/16 at 0900, Until Discontinued, Routine Given 02/25/2016 9:08 AM EDT 2 tablets sodium chloride 0.9 % flush 5 mL 5 mL, Intravenous, 2 TIMES DAILY, First dose on 02/25/16 at 0221, Until Discontinued, Recovery ([facility]ospital [facility]), Routine Given 02/25/2016 9:09 AM EDT 5 mLs Given 02/25/2016 3:18 AM EDT 5 mLs sodium chloride 0.9% 1,000 mL IV bolus at 4,000 mL/hr, Intravenous, ONCE, 1 dose, On 02/24/16 at 2021 Given 02/24/2016 8:26 PM EDT 40 00 mL/hr documented in this encounter Active and Recently Administered Medications Times are shown in EDT. Scheduled Medication Order 02/23/2016 02/24/2016 02/25/2016 acetaminophen (TYLENOL) tablet 1,000 mg 1,000 mg, Oral, EVERY 8 HOURS, First dose on 02/25/16 at 0600, Until Discontinued, Maximum dose of acetaminophen is 4000 mg from all sources in 24 hours., Routine 05 (Given - Provid er: Edna Bass RN)1503 (Given - Provider: Michelle Caballero RN) acetaminophen (TYLENOL) tablet 650 mg (COMPLETED) 650 mg, Oral, ONCE, 1 dose, On 02/24/16 at 2021, Maximum dose of acetaminophen is 4000 mg from all sources in 24 hours., STAT 2028 (Given - Provider: Jalil Bee, TERESA) aspirin EC tablet 325 mg 325 mg, Oral, DAILY, First dose on 02/25/16 at 0900, Until Discontinued, Routine 908 (Given - Provid er: Michelle Caballero RN) celecoxib (CeleBREX) capsule 200 mg 200 mg, Oral, 2 TIMES DAILY, First dose on 02/25/16 at 0900, Until Discontinued, Routine 907 (Given - Provid er: Michelle Caballero RN) dexamethasone (DECADRON) tablet 4 mg 4 mg, Oral, DAILY, 2 doses, First dose on 02/25/16 at 0900, Last dose on 02/26/16 at 0900, Routine 907 (Given - Provid er: Michelle Caballero RN) gabapentin (NEURONTIN) capsule 300 mg 300 mg, Oral, NIGHTLY, First dose on 02/25/16 at 2100, Until Discontinued, Routine HYDROmorphone (DILAUDID) injection 0.5 mg (COMPLETED) 0.5 mg, Intravenous, ONCE, 1 dose, On 02/24/16 at 2022, STAT 2023 (Given - Provider: Jalil Bee NRP) HYDROmorphone (DILAUDID) injection 1 mg (COMPLETED) 1 mg, Intravenous, ONCE, 1 dose, On 02/24/16 at 2212, STAT 2213 (Given - Provider: Jalil Bee NRP) HYDROmorphone (DILAUDID) injection 2 mg (COMPLETED) 2 mg, Intravenous, ONCE, 1 dose, On 02/25/16 at 0236, STAT 0316 (Given - Provid er: Edna Bass RN) HYDROmorphone (DILAUDID) tablet 2 mg (COMPLETED) 2 mg, Oral, ONCE, 1 dose, On 02/24/16 at 2331, STAT 2346 (Given - Provider: Monica Cordova RN) HYDROmorphone (DILAUDID) tablet 2 mg (COMPLETED) 2 mg, Oral, ONCE, 1 dose, On 02/25/16 at 0042, STAT 0042 (Given - Provid er: Monica Cordova RN) multivitamin Ocmj-Xt-YJ-Min (THERAPEUTIC-M) 27-0.4 mg tablet 1 tablet 1 tablet, Oral, DAILY, First dose on 02/25/16 at 0900, Until Discontinued 907 (Given - Provid er: Michelle Caballero RN) oxyCODONE (OxyCONTIN) CR tablet 10 mg 10 mg, Oral, EVERY 12 HOURS SCHEDULED (2 times per day), First dose on 02/25/16 at 0900, Until Discontinued, DO NOT CRUSH OR OPEN, Routine 907 (Given - Provid er: Michelle Caballero RN) senna-docusate (PERICOLACE) 8.6-50 mg per tablet 2 tablet 2 tablet, Oral, 2 TIMES DAILY, First dose on 02/25/16 at 0900, Until Discontinued, Routine 907 (Given - Provid er: Michelle Caballero RN) sodium chloride 0.9 % flush 5 mL 5 mL, Intravenous, 2 TIMES DAILY, First dose on 02/25/16 at 0221, Until Discontinued, Recovery (Recovery-Hospital Unit), Routine 317 (Given - Provid er: Edna Bass RN)0909 (Given - Provider: Michelle Caballero RN) sodium chloride 0.9% 1,000 mL IV bolus (COMPLETED) at 4,000 mL/hr, Intravenous, ONCE, 1 dose, On 02/24/16 at 2021 2025 (Given - Provider: Jalil Bee NRP) PRN Medication Order 02/23/2016 02/24/2016 02/25/2016 bisacodyl (DULCOLAX) suppository 10 mg 10 mg, Rectal, DAILY PRN, Starting on 02/25/16 at 0309, Until 02/25/16 at 1900, constipation, Routine diphenhydrAMINE (BENADRYL) capsule 25 mg 25 mg, Oral, EVERY 6 HOURS PRN, Starting on 02/25/16 at 0309, Until 02/25/16 at 1900, Itching, Routine HYDROmorphone (DILAUDID) injection 0.3 mg 0.3 mg, Intravenous, EVERY 2 HOURS PRN, Starting on 02/25/16 at 0237, Until 02/25/16 at 1900, Pain, Breakthrough pain 9-10 only., Routine HYDROmorphone (DILAUDID) tablet 2-6 mg 2-6 mg, Oral, EVERY 3 HOURS PRN, Starting on 02/25/16 at 0213, Until 02/25/16 at 1900, Pain, Give 2 mg for mild pain (1-4), 4 mg for moderate pain (5-7) or 6 mg for severe pain (8-10), Routine 0233 (Given - Provid er: Melodie Gaming RN)0540 (Given - Provider: Edna Bass RN)0908 (Given - Provider: Michelle Caballero RN)1226 (Given - Provider: Michelle Caballero RN)1538 (Given - Provider: Cassie Parrish RN) lidocaine (XYLOCAINE) 10 mg/mL (1 %) injection 3 mg 3 mg (0.3 mL), Subcutaneous, ONCE PRN, 1 dose, Starting on 02/25/16 at 0211, Until 02/25/16 at 1900, for discomfort with PIV insertion, Recovery (Recovery-Hospital Unit), Routine ondansetron (ZOFRAN) injection 4 mg(Linked Group 1) 4 mg, Intravenous, EVERY 8 HOURS PRN, Starting on 02/25/16 at 0214, Until Sun 10 at 1900, Nausea, May repeat times one in 30 minutes if ineffective. If multiple antiemetics are ordered, use ondanstron first, Recovery ([facility]overy[facility]ospital Unit) ondansetron (ZOFRAN) tablet 4 mg(Linked Group 1) 4 mg, Oral, EVERY 8 HOURS PRN, Starting on 02/25/16 at 0214, Until Sun 10 at 1900, Nausea, Vomiting, If multiple antiemetics are ordered, use ondansetron first. PO Preferred. If patient unable to take PO, may give IV if ordered. May repeat times one in 45 minutes if ineffective., Recovery (Recovery-Hospital Unit), Routine polyethylene glycol (MIRALAX) packet 17 g 17 g, Oral, 2 TIMES DAILY PRN, Starting on 02/25/16 at 0309, Until 02/25/16 at 1900, bowel regimen/constipation., Routine sodium chloride 0.9 % flush 5-20 mL 5-20 mL, Intravenous, EVERY 1 MIN PRN, Starting on 02/25/16 at 0211, Until 02/25/16 at 1900, flush, Flush pertains to all indwelling lines. Flush per protocol found in the job aid using the link provided on this medication record., Recovery (Recovery-Hospital Unit), Routine Linked Groups Order Group 1: ondansetron (ZOFRAN) tablet 4 mgJump to med 4 mg, Oral, EVERY 8 HOURS PRN, Starting on 02/25/16 at 0214, Until 02/25/16 at 1900, Nausea, Vomiting, If multiple antiemetics are ordered, use ondansetron first. PO Preferred. If patient unable to take PO, may give IV if ordered. May repeat times one in 45 minutes if ineffective., Recovery (Recovery-Hospital Unit), Routine Or ondansetron (ZOFRAN) injection 4 mgJump to med 4 mg, Intravenous, EVERY 8 HOURS PRN, Starting on 02/25/16 at 0214, Until 02/25/16 at 1900, Nausea, May repeat times one in 30 minutes if ineffective. If multiple antiemetics are ordered, use ondanstron first, Recovery (Recovery- Hospital Unit) documented in this encounter Care Teams Supervisor Cell Maintenance Relationship Specialty Start Date End Date Jeff Lane MD [facility] [address] [place] [address] PCP - General General Internal Medicine 11/07/1509/16 documented as of this encounter
--- OUTSIDE RECORDS SUMMARY | 2024-03-18 14:59 | XMS_ITS | Encounter Summary ---
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 Is pain under control: yes. doing fine with 5-10 mg Oxycodone every 6 hours PRN pain Other modalities used: ice, rest, Acetaminophen and Gabapentin. Having bowel movements: yes. Concerns with incision: no. Has the [facility] been in contact: no. Anticoagulation plan: Asprin 81mg po BID. Rehab facility: no. Working with PT and doing HEP flexion to 105 degrees. Concerns/Questions/Comments: Patient having some trouble sleeping through the night. Not sure if heis waking because he needs to reposition or if he is having pain. Has been falling asleep but wakesup in the manager music. Patient Teaching: Reviewed s/s to report. Instructed to be sure he is taking his before bed medications 45 min to 1 hour before he is planning to go to bed and use ice as well. Assessment/Plan: Good progress post knee poly swap. The patient knows how to contact orthopaedics if any further questions or concerns occur. Next visit: 07-15-2017. documented in this encounter Plan of Treatment Not on file documented as of this encounter Visit Diagnoses Not on filedocumented in this encounter Care Teams Document Preparer Microfilming Relationship Specialty Start Date End Date Leticia Valero APRN PCP - General Family Medicine 03/18/17 12/16/18 documented as of this encounter
--- OUTSIDE RECORDS SUMMARY | 2024-03-18 14:59 | XMS_ITS | Encounter Summary ---
[place] [address] Care Team Providers Care Cleaning Staff Supervisor Name Role Phone Anjum Leticia Coyle APRN Primary Care Provider Encounter Details Date Type Department Care Team (Late st Contact Info) Description 05/29/2017 2:00 PM EST Notes [place] [address] Social History Tobacco Use Types Packs/Day Years [...] on file documented as of this encounter Progress Notes * Janis Hooper - 05/29/2017 2:00 PM EST Office of Care Management Initial Assessment Janis Hooper reviewed record and discussed patient with Care Team. Source of Information: Yvan Maddox Introduced self/reviewed role; services accepted. Reason for Hospitalization: Failed right TKA. Right TKA revision on 06/16/[address] Dane Fleming. No past medical history on file. Hospitalizations Within the Past 30 Days: Anticipated Length Of Stay (If known): Current Decision-Making Capacity: He is capable of making his own medical decisions. Advance Care Planning: He has an ADV DIR in his medical record. His agent is his Christina. Current Coping/Education/Information Needs: He appears to understand the hospital course and discharge plans. Current Functional Ability: Functional Status Prior to Admission: He ambulates independently without an assistive device. He isable to do his ADL without assistance with the exception of his pants, sock, and shoe on the right leg including his pants. He can still drive but has a hard time getting in and out. He is able to dohis own cooking, cleaning, and shopping without assistance. 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 Home Environment: He lives an 2 level apartment. There are 2 stairs into the apartment with a railing on 1 side. His bedroom is on the main level along with the full bath. He has a tub shower, showerchair, no grab bars, standard height toilet. He is going to get a raised toilet seat. Social & Family Supports/Community Resources: His Christina is a stay at home mom. Behavioral Health History: None Substance Use/Abuse: None Other Pertinent/Service Specific Information: I discussed with the patient the potential avenues ofdischarge postoperatively. We discussed qualifications to go to a [facility] facility. We discussed potential out of pocket costs associated with non-emergent wheelchair van and ambulance transportation.We discussed the purpose and services provided by [facility]. If patient opts to go to outpatient physical therapy post-op, they are responsible for scheduling their initial and subsequent appointments. I communicated that we will not know until after surgery what will be the best course of discharge for the patient based on medical necessity and that this is why we plan for different courses of discharge. I informed the patient that they will be working with a residential caregiver after surgery to facilitate the discharge plan. I encouraged the patient to call with any questions or concerns prior to the surgery as well as when they discharge home. Health/Prescription Coverage: Primary Insurance: MEDICAID [place] Secondary Insurance: N/A Prescription Coverage: Medicaid [place] Preferred Pharmacy:[facility] [address] [place] [id number] Other: None Primary Care Provider: Leticia Valero APRN [phone] Patient/Caregiver Goals of Treatment: He wants to be able to play with his kids again. Potential Needs for Transition of Care: Rehab/SNF: No selection Home Health: No selection [facility] PT: [facility] A referral has been sent. DME: He has a 2 FWW and a cane. He does not have crutches. Dialysis: No Community Resources: None Transportation: We discussed that since we cannot determine the exact day or time of discharge, transportation must be readily available at time of discharge. Transportation will be provided by Christina. Other: None Anticipated Barriers to Discharge/Special Considerations: None Plan: He prefers to d/c home with [facility] PT at [facility]. A member of the Care Management team will continue to monitor progress, follow for continuity of care and assist with transition of care planning. Janis Hooper Pager: [phone] documented in this encounter Plan of Treatment Not on file documented as of this encounter Visit Diagnoses Not on filedocumented in this encounter Care Teams Cleaning Staff Supervisor Relationship Specialty Start Date End Date Leticia Valero APRN PCP - General Family Medicine 03/18/17 12/16/18 documented as of this encounter
--- OUTSIDE RECORDS SUMMARY | 2024-03-18 14:59 | XMS_ITS | Encounter Summary ---
[place] [address] Care Team Providers Care Lumpia Wrapper Maker Name Role Phone Jeff Sherman MD Primary Care Provider [phone] Encounter Details Date Type Department Care Team (Late st Contact Info) Description 03/27/2016 Orders [place] [address] Master Cain MD [facility] [place] [address] Social History Tobacco Use Types Packs/Day Years [...] as of this encounter Progress Notes * Master Cain - 03/27/2016 5:27 PM EST Called patient's gabapentin (300 mg QHS) to [facility] in [facility]. documented in this encounter Plan of Treatment Not on file documented as of this encounter Visit Diagnoses Not on filedocumented in this encounter Care Teams Lumpia Wrapper Maker Relationship Specialty Start Date End Date Jeff Sherman MD [facility] [address] [facility] [place] [address] PCP - General General Internal Medicine 11/07/1509/16 documented as of this encounter
--- OUTSIDE RECORDS SUMMARY | 2024-03-18 14:59 | XMS_ITS | Encounter Summary ---
Author Organization [facility] [place] [address] Care Team Providers Care Fitter Type Bar And Segment Name Role Phone AnjumAnthonyLeticiamona Coyle APRN Primary Care Provider Reason for Visit * Auth/Cert Specialty Diagnoses / Procedures Referred By Delbert diaz Referred To Contact Diagnoses Knee instability Knee instability Procedures PRO REVISE KNEE JOINT REPLACE, 1 PART @TOTAL KNEE REVISION ARTHROPLASTY, ONE COMPONENT (WRVU 21.12) Referral ID Status Reason Start Date Expiration Date Visits Re quested Visits Authorized [id number] 1 1 Encounter Details Date Type Department Care Team (Latest Contact Info) Description 06/16/2017 8:12 AM EST - 06/17/2017 12:33 PM [facility] Encounter [address] [place] [id number] Dane Chan MD [facility] [place] [address] Discharge Disposition: Home Social History Tobacco Use [...] Sign Reading Time Taken Comments Blood Pressure 113/72 06/17/2017 7:49 AM EST Pulse 67 06/17/2017 8:30 AM EST Temperature 37 ??C (98.6 ??F) 06/17/2017 7:49 [...] Yvan Maddox Patient Age: 42 y.o. Language: Austrian Race: White Ethnicity: Not nor Admit date: 06/16/2017 Discharge date and time: 06/17/2017 Attending Physician: Dane Chan MD Discharge Physician: Dane Chan MD Follow-up Recommendations for Providers: See discharge instructions for additional details. Future Appointments Date Time Provider Department Center 07/15/2017 9:15 AM [facility] DX ROOM 2 Xray [facility] 07/15/2017 10:10 AM Dane Chan MD [facility] [place] [facility] Inpatient Provider Contact Information: Dane Chan MD Orthopedics: [phone] After hours and weekends, call [facility] Retrofit Installer, , and have the Orthopedic resident paged. [...] bowel movement. You can also take an rrzv-dar-hsdhxuo medication, Miralax if needed to combat constipation. [...] as much as possible. Call your doctor ([phone]) if you develop: 1. Fever greater than 100.5 2. Severe nausea or vomiting 3. Increasing pain that is not controlled by pain medications 4. Increasing redness, swelling, or drainage from incisions 5. Change in sensation FOLLOW-UP APPOINTMENTS: 1. You will have follow-up appointments at [facility] as indicated below in Future Appointment and Orders. 2. You will need to have x-rays prior to your follow-up appointment on 07/15/2017. Please come to Radiology, desk 3T, 1 hour BEFORE that appointment for those x-rays. Future Appointments Date Time Provider Department Center 07/15/2017 9:15 AM [facility] DX ROOM 2 Xray [facility] 07/15/2017 10:10 AM Dane Chan MD [facility] If you have questions or concerns: Friday through Friday, 8 AM - 5 PM, please call Dane Barakat MD's office at . If it is after 5 PM, the weekend, or holidays, please call and ask to speak with theOrthopedic resident on-call. Future Appointments and Orders Future Appointments Provider Department Dept Phone 07/15/2017 10:10 AM Dane Chan MD Orthopaedics at [place] [phone] Primary Care Provider: Leticia Valero APRN [phone] Discharge References/Attachments None documented in this encounter [...] bowel movement. You can also take an ukke-djm-ypwdgsf medication, Miralax if needed to combat constipation. [...] operative dressing 7 days after your surgery (2/4/18). When it is removed you can leave [...] as much as possible. Call your doctor ([phone]) if you develop: 1. Fever greater than 100.5 2. Severe nausea or vomiting 3. Increasing pain that is not controlled by pain medications 4. Increasing redness, swelling, or drainage from incisions 5. Change in sensation FOLLOW-UP APPOINTMENTS: 1. You will have follow-up appointments at [facility] as indicated below in Future Appointment and Orders. 2. You will need to have x-rays prior to your follow-up appointment on 07/15/2017. Please come to Radiology, desk , 1 hour BEFORE that appointment for those x-rays. Future Appointments Date Time Provider Department Center 07/15/2017 9:15 AM [facility] DX ROOM 2 Xray [facility] 07/15/2017 10:10 AM Dane Chan MD [facility] [address] [place] [address] CLIN If you have questions or concerns: [...] ?? Follow up in 4-6 weeks with AP/Lateral/Naknek/Standing Alignment views of Knee Future Appointments Date Time Provider Department Center 07/15/2017 9:15 AM [facility] DX ROOM 2 [facility]ray [facility] 07/15/2017 10:10 AM Dane Chan MD [facility] [place] [facility] * Damaris Darling RN - 06/16/2017 [...] Patient oriented to room, call alcazar, IS. RN will monitor patient. * Kaia [...] Prakash and pt readied for transfer to [facility] [place] via bed. Room is cleaning. * Christian [...] below Christian Espinoza MD Orthopaedic Surgery Pager [phone] Future Appointments Date Time Provider Department Center 07/15/2017 9:15 AM [facility] DX ROOM 2 [facility]ray [facility] 07/15/2017 10:10 AM Dane Chan MD [facility] [facility] * Marge Blancas RN - 06/16/2017 2:51 PM EST S/p revision of knee replacement Turned side to side 1430 C/o pain as spinal wearing off given po Oxycodone with Fentanyl IV for 12/26 pain Visited by 1530 Awake and watching [...] without an AD. 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 Assessment: Pt seen for PT evaluation and [...] services (has outpatient appointment for Friday) Pager: [phone] JACE MONZON, PT 06/17/2017 Physical Therapy Rehabilitation [...] OUTCOME SUMMARY: Patient arrived from PACU at 0, progressing towards d/c goals appropriately at this [...] Chan MD - 06/16/2017 12:21 PM EST [facility] Operative Note Patient Name: Yvan Maddox : [id number] MR#: [id number] Case Date: 06/16/2017 Surgeon: Surgeon(s) and Role: [...] Implant Name Type Inv. Item Serial No. Position Clerk Lot No. LRB No. Used Action INSER,ATTUNE,PS,FB,SZ7,8MM ([id number]) (AUTOREQ) - [id number] IMPLANTS INSER,ATTUNE,PS,FB,SZ7,8MM ([id number]) (AUTOREQ) [facility] [id number] Right 1 Implanted Infection Bundle used? N/A [...] IMPLANTABLE DEVICES SCAN 06/16/2017 12:00 AM EST INDUCTION HEATING EQUIPMENT SETTER SCAN 06/16/2017 12:00 AM EST documented in this encounter Results * (ABNORMAL) Differential, Automated (06/17/2017 4:19 AM EST) Neutrophil % 85.8 % [facility] Neutrophil Absolute 17.15(H) 1.70 - 6.10 x10(3)/mc L [facility] Lymph % 8.7 % [facility] Lymphocytes Abs 1.7 0.9 - 3.2 x10(3)/mc L [facility] Monocyte % 4.7 % [facility] Monocyte Abs 0.9 0.3 - 0.9 x10(3)/mc L [facility] Eos % 0.0 % [facility] Eosinophils Abs 0.0 0.0 - 0.4 x10(3)/mc L [facility] Basophil % 0.2 % [facility] Baso Absolute 0.0 0.0 - 0.1 x10(3)/mc L [facility] Immature Gran % 0.60 % [facility] Comment: Immature granulocytes(IG's)percentage and absolute count will include metamyelocytes, myelocytes, and promyelocytes. Blood smears from CBCs yielding IG's will be scanned manually for concordance. If this scan disagrees with the automated IG or if promyelocytes are noted, a manual differential will be performed. Immature Gran Absolute 0.12(H) 0.00 - 0.04 x10(3)/ L [facility] Blood specimen (specimen) 06/17/2017 4:19 AM EST 06/17/2017 4:35 AM EST Narrative Resulting Agency Comment Spec In Lab Dane Chan MD HEMATOLOGY ORDERABLE S [facility] [place] [place] [address] * (ABNORMAL) Hemogram (06/17/2017 4:19 AM EST) White Blood Cell 20.0(H) 4.0 - 9.5 x10(3)/ L [facility] Red Blood Cell 4.49(L) 4.58 - 5.54 x10(6)/[facility] Hemoglobin 13.4(L) 13.7 - 16.5 gm/dL [facility] Hematocrit 39.8(L) 40.5 - 48.5 % [facility] Mean Cell Volume 88.6 82.9 - 93.1 fL [facility] Mean Cell Hemoglobin 29.8 27.5 - 32.1 pg [facility] Mean Cell Hemoglobin Concentration 33.7 32.0 - 35.7 gm/dL [facility] Platelet 239 145 - 357 x10(3)/mc L [facility] RDW Standard Deviation 44.4 36.0 - 45.0 [facility] RDW coefficient of variation 13.6 11.4 - 13.8 % [facility] Mean Platelet Volume 10.5 7.6 - 12.9 [facility] NRBC% auto 0.0 % [facility] NRBC Absolute 0.000 0.000 - 0.000 x10(3)/ L [facility] Blood specimen (specimen) 06/17/2017 4:19 AM EST 06/17/2017 4:35 AM EST Narrative Resulting Agency Comment Spec In Lab Dane Chan MD HEMATOLOGY ORDERABLE S [facility] [place] [place] [address] * Basic Metabolic Panel (non-fasting) (06/17/2017 4:19 AM EST) Glucose 103 65 - 199 mg/dL [facility] Comment:Diabetes: >=200 mg/d L plus symptoms Blood Urea Nitrogen 10 10 - 20 mg/dL [facility] Creatinine 0.85 0.80 - 1.50 mg/dL [facility] Sodium 140 135 - 145 mmol/L [facility] Potassium 4.2 3.5 - 5.0 mmol/L [facility] Comment: Please note: ??Patients with WBC >100,000 may have falsely elevated Potassium levels. ??For accurate Potassium quantification in these patients send serum separator tube (gold top) for subsequent determinations. ??Contact the Clinical Chemistry Laboratory if there are any questions. Chloride 105 98 - 107 mmol/L [facility] Carbon Dioxide 22 22 - 31 mmol/L [facility] Anion Gap 13 5 - 15 mmol/L [facility] Calcium 8.7 8.5 - 10.5 mg/dL [facility] Est Glomerular Filtration Rate >60 >=60 [facility] Comment: The reported eGFR should be multiplied by 1.2 for patients. The MDRD is not an appropriate measure of renal function for patients with body mass extremes or in patients with acute kidney failure. http://[employer]Blox[employer]/DHnkdep http://[employer]/DHMCnkf Blood specimen (specimen) 06/17/2017 4:19 AM EST 06/17/2017 4:35 AM EST Narrative Resulting Agency Comment Spec In Lab Dane Chan MD CHEMISTRY ORDERABLES [facility] [place] [place] [address] * Cell Count Body Fluid Knee, Right (06/16/2017 11:36 AM EST) Body Fluid Source Knee, Right [facility] Color, Fld Yellow [facility] Appearance, Fld Clear [facility] WBC Count, Fld 124 /mcl [facility] Comment: Guideline listed below apply [...] chart. Polymorphonuclear cells BF % 13 % [facility] Comment: Polymorphonuclear cell percent and absolute values may contain Neutrophils, Eosinophils, and Basophils. Body fluid smear will be scanned manually for concordance. Mononuclear cells BF % 87 % [facility] Comment: Mononuclear cell percent and absolute values may contain Lymphocytes and Monocytes. Body fluid smear will be scanned manually for concordance. Polymorphonuclear cells BF ABS 16 /[facility] Comment: Polymorphonuclear cell percent and absolute values may contain Neutrophils, Eosinophils, and Basophils. Body fluid smear will be scanned manually for concordance. Mononuclear cells BF ABS 108 /[facility] Comment: Mononuclear cell percent and absolute values may contain Lymphocytes and Monocytes. Body fluid smear will be scanned manually for concordance. Specimen from lower limb (specimen) 06/16/2017 11:36 AM EST 06/16/2017 11:40 AM EST Narrative Resulting Agency Comment Spec In Lab Dane Chan MD BODY FLUIDS AND STOO LS ORDERABLES [facility] [place] [address] * SCAN DOC: IMPLANTABLE DEVICES (06/16/2017 12:00 AM EST) Narrative 06/16/2017 12:00 AM EST Ordered by an unspecified provider. Scanning Provider MEDIA MGR SCAN EXT O RDR/RSLT * SCAN DOC: INDUCTION HEATING EQUIPMENT SETTER (06/16/2017 12:00 AM EST) Anatomical Region Laterality Modality Other Narrative 06/16/2017 12:00 AM EST Ordered by an unspecified provider. Scanning Provider MEDIA MGR SCAN EXT O RDR/RSLT documented in this encounter Visit Diagnoses Diagnosis s/p R TKA revision for instability, polyswap 06/16/17 (Bernadette) Other joint derangement, not elsewhere classified, lower leg documented in this encounter Admitting Diagnoses Diagnosis Knee [...] Given 06/16/2017 9:33 PM EST 81 mg ceFAZolin (ANCEF) 1g in dextrose 5% 50mL 1 g, Intravenous, EVERY 8 HOURS, 3 [...] Unit), Indication for (Active or Suspected): Prophylaxis New Bag 06/17/2017 9:17 AM EST 1 g 100 mL/hr New Bag 06/16/2017 11:16 PM EST 1 g 100 mL/hr New Bag 06/16/2017 3:21 PM EST 1 g 100 mL/hr celecoxib (CeleBREX) capsule 400 mg 400 mg, Oral, ONCE, 1 dose, On Fri06/16/17 at 0845, Administer on arrival to Same Day Program, Day of Surgery (Day of Procedure), Routine Given 06/16/2017 9:04 AM EST 400 mg dexamethasone (DECADRON) tablet 4 mg 4 mg, Oral, DAILY, 2 doses, First dose on Fri06/16/17 at 1330, Last dose on Fri06/17/17 at 0900, Routine Given 06/17/2017 9:23 AM EST 4 mg Given 06/16/2017 2:42 PM EST 4 mg fentaNYL (PF) 50mcg/mL injection 25-50 mcg, Intravenous, EVERY 5 MIN PRN, Starting on Fri06/16/17 at 0821, Until Fri06/16/17 at 1022, nerve block, Day of Surgery (Day of Procedure), Routine Given 06/16/2017 10:20 AM EST 25 mcg fentaNYL (PF) 50mcg/mL injection 25-50 mcg, Intravenous, EVERY 5 MIN PRN, [...] fentanyl for breakthrough pain., PACU Recovery, Routine Given 06/16/2017 2:38 PM EST 50 mcg gabapentin (NEURONTIN) capsule 300 mg 300 mg, Oral, ONCE, 1 dose, On Fri06/16/17 at 0845, Administer on arrival in Same Day Program, Day of Surgery (Day of Procedure), Routine Given 06/16/2017 9:04 AM EST 300 mg gabapentin (NEURONTIN) capsule 300 mg 300 mg, Oral, NIGHTLY, First dose on Fri06/18/17 at 2100, Until Discontinued, Routine gabapentin (NEURONTIN) capsule 600 mg 600 mg, Oral, NIGHTLY, 2 doses, First dose on Fri06/16/17 at 2100, Last dose on Fri06/17/17 at 2100, Routine Given 06/16/2017 9:33 PM EST 600 mg ketorolac (TORADOL) injection 15 mg 15 mg, Intravenous, EVERY 6 HOURS SCHEDULED, 4 doses, First dose on Fri06/16/17 at 1330, Last dose on Fri06/17/17 at 0800, Routine Given 06/17/2017 9:19 AM EST 15 mg Given 06/17/2017 2:18 AM EST 15 mg Given 06/16/2017 7:39 PM EST 15 mg lactated Ringers infusion 1,000 mL 1,000 mL, at 100 mL/hr, Intravenous, CONTINUOUS, Starting on Fri06/16/17 at 0845, Until Fri06/16/17 at 1933, Day of Surgery (Day of Procedure) New Bag 06/16/2017 12:34 PM EST New Bag 06/16/2017 8:45 AM EST 1,000 mLs 100 mL/hr midazolam (PF) (VERSED) 1 mg/mL injection 1-2 mg 1-2 mg, Intravenous, EVERY 5 MIN PRN, Starting on Fri06/16/17 at 0821, Until Fri06/16/17 at 1022, Sleep, block sedation. 1mg for mild anxiety, 2mg for moderate anxiety, Day of Surgery (Day of Procedure), Routine Given 06/16/2017 10:20 AM EST 1 mg multivitamin Fdmc-Zs-SI-Min (THERAPEUTIC-M) 27-0.4 mg tablet 1 tablet 1 [...] hours., Routine 1336 (Given - Provider: Marge Blancas RN)2133 (Given - Provider: Damaris Darling RN) 0607 (Given - Provider: Damaris Darling RN) aspirin EC tablet 81 mg 81 mg, Oral, 2 TIMES DAILY, First dose on Fri06/16/17 at 2200, Until Discontinued, Routine 213 (Given - Provider: Damaris Darling RN) 09 (Given - Provider: Thao Burleson, JOSE [...] Entry - Provider: Kaia Castillo, JOSE DE JSEUS - Reason: Transfer to a Procedural area)2316 (New Bag - Provider: Damaris Darling RN)2346 (Stopped - Provider: Damaris Darling RN) 0917 (New Bag - Provider: Thao Burleson, RN)0947 (Stopped - Provider: Thao Burleson RN) ceFAZolin (ANCEF) 2g in dextrose 5% 100 [...] 0900, Routine 1442 (Given - Provider: Marge Blancas RN) 09 (Given - Provider: Thao Burleson RN) gabapentin (NEURONTIN) capsule 300 mg (COMPLETED) 300 mg, Oral, ONCE, 1 dose, On Fri06/16/17 at 0845, Administer on arrival in Same Day Program, Day of Surgery (Day of Procedure), Routine 09 (Given - Provider: Laura Landis RN) gabapentin [...] Reason: See comment - Comment: given in OR)1939 (Given - Provider: Kaia Castillo RN) 217 (Given - Provider: Damaris Darling, JOSE DE JESUS)09 (Given - Provider: Thao Burleson, JOSE DE JESUS) multivitamin Oedi-Qx-TK-Min (THERAPEUTIC-M) 27-0.4 mg tablet 1 tablet 1 [...] 09 (Given - Provider: Thao Burleson RN) senna-docusate (PERICOLACE) 8.6-50 mg per tablet 2 tablet 2 tablet, Oral, 2 TIMES DAILY, First dose on Fri06/16/17 at 2200, Until Discontinued, Routine 2132 (Given - Provider: Damaris Darling RN) 09 (Given - Provider: Thao Burleson, JOSE DE JESUS) sodium chloride 0.9 % flush 5 mL 5 mL, Intravenous, 2 TIMES DAILY, First dose on Fri06/16/17 at 2130, Until Discontinued, Recovery (Recovery-Hospital Unit), Routine 2133 (Given - Provider: Damaris Darling RN) 0923 (Given - Provider: Thao Burleson, JOSE DE JESUS) tranexamic acid (CYKLOKAPRON) 1,259 mg in sodium [...] Unit) 1440 (New Bag - Provider: Marge Blancas, JOSE DE JESUS)1915 (Rate/Dose Verify - Provider: Kaia Castillo, RN) PRN Medication Order 06/15/2017 06/16/2017 06/17/2017 [...] Procedure), Routine 1020 (Given - Provider: Laura Landis, RN) ondansetron (ZOFRAN) injection 4 mg(Linked Group 3) 4 mg, Intravenous, EVERY 8 HOURS PRN, Starting on Fri06/16/17 at 2105, Until Tu06/17/17 at 1433, Nausea, May repeat times one [...] relieved., Routine 1425 (Given - Provider: Marge Blancas RN)1609 (Given - Provider: Rufus Chapman RN)1844 (Given - Provider: Marge Blancas RN)2317 (Given - Provider: Damaris Darling, RN) 0610 (Given - Provider: Damaris Darling, RN)1053 (Given - Provider: Thao Burleson RN) sodium chloride 0.9 % flush 5-20 mL [...] Unit) documented in this encounter Care Teams Fitter Type Bar And Segment Relationship Specialty Start Date End Date Leticia Valero, INTEGRATION DIRECTOR PCP - General Family Medicine 03/18/17 12/16/18 documented as of this encounter
--- OUTSIDE RECORDS SUMMARY | 2024-03-18 14:59 | XMS_ITS | Encounter Summary ---
[place] [address] Care Team Providers Care Balloon Seller Name Role Phone AnjumLeticia Leonides CARL Primary Care Provider Reason for Visit * Reason Onset Date Comments Pre Procedure Call 03/28/2017 Encounter Details Date Type Department Care Team (Late st Contact Info) Description 03/28/2017 Telephone [place] [id number] Dane Fleming MD [facility] [place] [address] Pre Procedure Call Social History Tobacco Use Types Packs/Day Years [...] encounter Miscellaneous Notes * Telephone Encounter - Medina Carmona - 03/28/2017 3:16 PM EST Christina called for Yvan to let us know that they would like to move forward with the surgery to fixhis right knee replacement. To schedule please call [phone] documented in this encounter Plan of Treatment Not on file documented as of this encounter Visit Diagnoses Not on filedocumented in this encounter Care Teams Balloon Seller Relationship Specialty Start Date End Date Leticia Valero APRN PCP - General Family Medicine 03/18/17 12/16/18 documented as of this encounter
--- OUTSIDE RECORDS SUMMARY | 2024-03-18 14:59 | XMS_ITS | Encounter Summary ---
[place] [address] Care Team Providers Care Fish Machine Feeder Name Role Phone Jeff Sherman MD Primary Care Provider [phone] Reason for Visit * Reason Comments Aftercare Of Tjr right TKA 02/22/2016 Encounter Details Date Type Department Care Team (Late st Contact Info) Description 03/26/2016 3:00 PM EST Office [place] [address] Dane Fleming MD [facility] [place] [address] Status post total knee replacement, right with [...] Reading Time Taken Comments Blood Pressure 115/78 03/26/2016 3:03 PM EST Pulse 80 03/26/2016 3:03 PM EST Temperature - - Respiratory Rate - - Oxygen Saturation - - Inhaled Oxygen Concentration - - Weight 80.7 kg (178 lb) 03/26/2016 3:03 PM EST v erbal Height 180.3 cm (5' 11) 03/26/2016 3:03 PM EST verbal Body Mass Index 24.83 03/26/2016 3:03 PM EST documented in this encounter Progress Notes * Ayad Moody PA - 03/26/2016 3:00 PM EST Arthroplasty/Orthopaedic History: 1. Right TKA. Dr. Fleming. 03/07/2016. HPI: Yvan Maddox is a very pleasant 41 y.o. year-old male and is now 5 weeks post right total knee replacement The patient has been doing okay. Pain is not well controlled. Medication(s) being used: acetaminophen.. No fevers, chills, nausea, vomiting, or symptoms of infection. Yvan has been ambulating with no assistive device and working with PT. He is not taking narcotic pain medicine. The patient explains he is doing well with physical therapy, he has 0?? to 105?? and PT. The patient has pain, mainly around his physical therapy sessions. He explains that he is in an increased pain over the past 3 weeks due to losing a prescription while fishing. The patient has been taking acetaminophen with minimal result. He has finished his aspirin, denies calf pain, redness, and swelling. The patient is not taking any anti-inflammatory at this point in time. He has run out of gabapentin, which he found helpful for night pain. Anticoagulation status ASA 81mg BID for 30 days discussed stop date, which he has already stopped. ROS: Denies: fever, chills, night sweats, nausea, or vomiting BP 115/78 (BP Location (NBP): Left arm, Patient Position: Sitting, BP Cuff Sizes: Adult (25-34 cm))Pulse 80 Ht 180.3 cm (5' 11) Comment: verbal Wt 80.7 kg (178 lb) Comment: verbal BMI 24.83 kg/m2 Physical Exam: Well-appearing male in no acute distress. Alert and Oriented x 3 and answers all questions appropriately. The incision is well healed, with no signs of infection. There are 3 areas of eschar distally, no surrounding erythema, no discharge upon expression, there is fibrinous exudate distally. Post Op Right Knee Exam: Knee ROM: Extension:0 Flexion: 95 Alignment: 0-4 degrees Neutral Stability: A/P Translation [...] of fracture, subsidence, loosening, or periprosthetic complication. No evidence of interval change on films. Questionnaire Responses: [facility] Surgical Postop Visit 03/26/2016 PROMIS-10 General Health Good PROMIS-10 Quality of Life Very Good PROMIS-10 Physical Health Fair PROMIS-10 Mental Health Good PROMIS-10 Social Activity Excellent PROMIS-10 Everyday Activities A little PROMIS-10 Pain 8 PROMIS-10 Fatigue Severe PROMIS-10 Social Roles Good PROMIS-10 Anxious or Depressed Sometimes PROMIS PHYSICAL HEALTH SCORE 29.6 PROMIS MENTAL HEALTH SCORE 50.8 KOOS-PS Scores 44 Problems with surgical incision/wound after surgery No Gone to ER since knee surgery Yes Where was ER located? [facility] Date of ER visit 01/25/2016 Reason for ER visit in alot of pain Admitted to hospital since recent ortho surgery Yes [facility] Date of admission 01/26/2016 Discharge date 01/27/2016 Reason you went to hospital alot of pain and swellingin my right knee Additional surgery on same body part No [facility] Emergency Department Response 03/26/2016 KOOS-PS Scores 44 Spine [facility] Response 03/26/2016 KOOS-PS Scores 44 ASSESSMENT/PLAN: Mr. Maddox is a 41 y.o. year old male status post right total knee replacement Doing well postoperatively. Continue weightbearing as tolerated and working on range of motion. We will see him back in 8 weeks for repeat examination. No X-rays will be needed at that time. Patient may return to normal activities as his pain and function allow. We discussed monitoring for infection, keeping his wound covered with a Mepilex until resolved. Keep working on ROM. Gabapentin, NSAID, and APAP for pain. We discussed the appropriate precautions surrounding dental [...] infections. All questions were answered. Signed: TERESA BOOTH 03/26/2016 documented in this encounter Plan of Treatment Not on file documented as of this encounter Visit Diagnoses Diagnosis Status post total knee replacement, right with Dr. Fleming (02/22/16) documented in this encounter Care Teams Fish Machine Feeder Relationship Specialty Start Date End Date Jeff Sherman MD [facility] [address] [place] [place] [address] [place] [address] PCP - General General Internal Medicine 11/07/1509/16 documented as of this encounter
--- OUTSIDE RECORDS SUMMARY | 2024-03-18 14:59 | XMS_ITS | Encounter Summary ---
[place] [address] Care Team Providers Care Scalping Machine Operator Name Role Phone Anjum Leticia Coyle APRN Primary Care Provider [phone] Reason for Visit * Reason Onset Date Comments Medication Refill 06/23/2017 Encounter Details Date Type Department Care Team (Late st Contact Info) Description 06/23/2017 [place] [address] Camille Alonzo RN Social History Tobacco Use Types Packs/Day [...] encounter Miscellaneous Notes * Telephone Encounter - Camille Alonzo RN - 06/23/2017 12:47 PM EST Medication Refill Request Surgery/Injury: Case Date: 06/16/2017 ?? Surgeon: Surgeon(s) and Role: * Dane Fleming MD - Primary * Zack Valerio MD ?? 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 Postoperative diagnosis: Same ?? Procedure(s) (LRB): @TOTAL KNEE REVISION ARTHROPLASTY, ONE COMPONENT (WRVU 21.12) (Right) MODIFIER: ATTUNE STABILIZED FIXED PLATFORM DEPUY (Right) ?? Original Provider: [facility] [employer] Needs Assessment done within 12 months (no change identified): Yes Medication being requested: Oxycodone 5 mg Last refill: 06/17/17 Seen within 30 days (if no, than when): Yes Follow Up: 07/15/17 How is this medication being used currently: Patient is currently taking 1-2 tablets every 4 hours. Patient denies any issues with constipation,is taking Senna and Miralax as directed. Pain level: Patient reported that at rest his pain is a 2-3, but after activity pain is a 6-7. Heis icing for 20-30 minutes 6-8 times daily and elevating the RLE. Other pain medications used and how: Patient is taking 1000 mg of Tylenol every 8 hours, 300 mg of Gabapentin at bed time Query date (must be within 30 days): 06/23/17 Risk assessment: NA New Prescription written for: Oxycodone 5 mg, 1-2 tablets every 6 hours as needed for pain, instructed patient to take the smallest dose possible to control his pain, he may break the tablets in halfto achieve this and continue to wean as his pain allows. Prescription sent electronically to [facility] in [facility] by Dr. Fleming The patient knows how to contact orthopaedics if any further questions or concerns occur. documented in this encounter Plan of Treatment Not on file documented as of this encounter Visit Diagnoses Not on filedocumented in this encounter Care Teams Scalping Machine Operator Relationship Specialty Start Date End Date Leticia Valero APRN PCP - General Family Medicine 03/18/17 12/16/18 documented as of this encounter
--- OUTSIDE RECORDS SUMMARY | 2024-03-18 14:59 | XMS_ITS | Encounter Summary ---
[place] [address] Care Team Providers Care Locomotive Mechanic Name Role Phone Anjum Leticia Coyle APRN Primary Care Provider Encounter Details Date Type Department Care Team (Latest Contact Info) Description 03/18/2017 9:55 AM EDT Laboratory Appointment Lab [address] [place] [address] Status post total knee replacement, right with Dr. Fleming (02/22/16); Status post right knee replacement Social History Tobacco Use Types Packs/Day Years [...] Procedure Name Priority Date/Time Associated Diagnosis Comments CRP, ACUTE INFLAMMATION STAT 03/18/2017 9:59 AM EDT Status post total knee replacement, right with Dr. Fleming (02/22/16) Status post right knee replacement HEMOGRAM STAT 03/18/2017 9:59 AM EDT Status post total knee replacement, right Status post right knee replacement DIFFERENTIAL, AUTOMATED STAT 03/18/2017 9:59 AM EDT Status post total knee replacement, right Status post right knee replacement SEDIMENTATION RATE STAT 03/18/2017 9: 59 AM EDT Status post total knee replacement, right with Dr. Fleming (02/22/16) Status post right knee replacement CBC (WITH DIFF) STAT 03/18/2017 9:59 AM EDT Status post total knee replacement, right with Dr. Fleming (02/22/16) Status post right knee replacement documented in this encounter Results * (ABNORMAL) Differential, Automated (03/18/2017 9:59 AM EDT) Neutrophil % 63.9 % [facility] Neutrophil Absolute 5.81 1.70 - 6.10 x10(3)/mc L [facility] Lymph % 23.2 % [facility] Lymphocytes Abs 2.1 0.9 - 3.2 x10(3)/mc L [facility] Monocyte % 6.6 % [facility] Monocyte Abs 0.6 0.3 - 0.9 x10(3)/mc L [facility] Eos % 5.3 % [facility] Eosinophils Abs 0.5(H) 0.0 - 0.4 x10(3)/mc L [facility] Basophil % 0.7 % [facility] Baso Absolute 0.1 0.0 - 0.1 x10(3)/mc L [facility] Immature Gran % 0.30 % [facility] Comment: Immature granulocytes(IG's)percentage and absolute count will include metamyelocytes, myelocytes, and promyelocytes. Blood smears from CBCs yielding IG's will be scanned manually for concordance. If this scan disagrees with the automated IG or if promyelocytes are noted, a manual differential will be performed. Immature Gran Absolute 0.03 0.00 - 0.04 x10(3)/ L [facility] Blood specimen (specimen) 03/18/2017 9:59 AM EDT 03/18/2017 10:07 AM EDT Narrative Resulting Agency Comment Spec In Lab [facility] St[facility] Eliezer CARL HEMATOLOGY ORDERABL ES [facility] [place] [address] * (ABNORMAL) Hemogram (03/18/2017 9:59 AM EDT) White Blood Cell 9.1 4.0 - 9.5 x10(3)/[facility] Red Blood Cell 5.06 4.58 - 5.54 x10(6)/[facility] Hemoglobin 15.0 13.7 - 16.5 gm/dL [facility] Hematocrit 46.5 40.5 - 48.5 % [facility] Mean Cell Volume 91.9 82.9 - 93.1 fL [facility] Mean Cell Hemoglobin 29.6 27.5 - 32.1 pg [facility] Mean Cell Hemoglobin Concentration 32.3 32.0 - 35.7 gm/dL [facility] Platelet 285 145 - 357 x10(3)/[facility] RDW Standard Deviation 46.2(H) 36.0 - 45.0 [facility] RDW coefficient of variation 13.7 11.4 - 13.8 % [facility] Mean Platelet Volume 9.9 7.6 - 12.9 fL [facility] NRBC% auto 0.0 % [facility] NRBC Absolute 0.000 0.000 - 0.000 x10(3)/[facility] Blood specimen (specimen) 03/18/2017 9:59 AM EDT 03/18/2017 10:07 AM EDT Narrative Resulting Agency Comment Spec In Lab [facility] Martins [employer] MACHINE TENDER HEMATOLOGY ORDERABL ES Performing Organization Address [facility] Co de Phone Number [facility] [place] [address] * Sedimentation rate (03/18/2017 9:59 AM EDT) Sedimentation Rate Automated 7 0 - 15 mm/hr [facility] Blood specimen (specimen) 03/18/2017 9:59 AM EDT 03/18/2017 10:07 AM EDT Narrative Resulting Agency Comment Spec In Lab Mercedez Martins [employer] MACHINE TENDER HEMATOLOGY ORDERABL ES Performing Organization Address [facility] Co de Phone Number [facility] [place] [address] * CRP, acute inflammation (03/18/2017 9:59 AM EDT) C-Reactive Protein 0.8 <=4.9 mg/L [facility] Blood specimen (specimen) 03/18/2017 9:59 AM EDT 03/18/2017 10:07 AM EDT Narrative Resulting Agency Comment Spec In Lab Mercedez Martins [employer] MACHINE TENDER CHEMISTRY ORDERABLE S Performing Organization Address [facility] de Phone Number [facility] [place] [address] documented in this encounter Visit Diagnoses Diagnosis Status post total knee replacement, right with Dr. Fleming (02/22/16) Status post right knee replacement documented in this encounter Care Teams Locomotive Mechanic Relationship Specialty Start Date End Date Leticia Valero APRN PCP - General Family Medicine 03/18/17 12/16/18 documented as of this encounter
--- OUTSIDE RECORDS SUMMARY | 2024-03-18 14:59 | XMS_ITS | Encounter Summary ---
[place] [address] Care Team Providers Care Heel Shaver Name Role Phone Jeff Sherman MD Primary Care Provider [phone] Reason for Visit * Reason Onset Date Comments Bumped Appointment 08/28/2016 Encounter Details Date Type Department Care Team (Late st Contact Info) Description 08/28/2016 Telephone [place] [address] Dane Fleming MD [facility] [address] [place] [address] Bumped Appointment Social History Tobacco Use Types Packs/Day [...] encounter Miscellaneous Notes * Telephone Encounter - Sylvia Salas 08/30/2016 2:20 PM EDT Patient rescheduled * Telephone Encounter - Sylvia Salas - 08/28/2016 8:45 AM EDT LMOM #1 to call to reschedule bumped 02/[address] Fleming's clinic documented in this encounter Plan of Treatment Not on file documented as of this encounter Visit Diagnoses Not on filedocumented in this encounter Care Teams Heel Shaver Relationship Specialty Start Date End Date Jeff Sherman MD [facility] [address] [place] [address] PCP - General General Internal Medicine 11/07/1509/16 documented as of this encounter
--- OUTSIDE RECORDS SUMMARY | 2024-03-18 15:00 | XMS_ITS | Encounter Summary ---
Author Organization [facility] [id number] Care Team Providers Care Provider Enrollment Specialist Name Role Phone Jeff Lane MD Primary Care Provider [phone] Reason for Referral * Physical Therapy (Routine) - Specialty Diagnoses / Procedures Referred By Delbert diaz Referred To Contact Physical Therapy Diagnoses Status post total knee replacement, right Thao Jasmine PA [facility] [place] [address] Referral ID Status Reason Start Date Expiration Date V isits Requested Visits Authorized [id number] Evaluate and Treat 02/23/2016 08/21/2016 12 12 Reason for Visit * Auth/Cert Specialty Diagnoses / Procedures Referred By Delbert diaz Referred To Contact Diagnoses Knee pain Right knee degenerative arthritis RIGHT KNEE DEGENERATIVE OA Procedures PRO TOTAL KNEE ARTHROPLASTY @TOTAL KNEE ARTHROPLASTY Referral ID Status Reason Start Date Expiration Date Visits Re quested Visits Authorized [id number] 1 1 Encounter Details Date Type Department Care Team (Latest Contact Info) Description 02/22/2016 5:40 AM EDT - 02/23/2016 12:55 PM EDT Hospital Encounter [address] [place] [address] Dane Chan MD [facility] [place] [address] Status post total knee replacement, right with Dr. Chan (02/22/16) Discharge Disposition: Home Social History Tobacco [...] Sign Reading Time Taken Comments Blood Pressure 114/74 02/23/2016 8:02 AM EDT Pulse 72 02/22/2016 2:00 PM EDT Temperature 36.9 ??C (98.4 ??F) 02/23/2016 8:02 AM ED T Respiratory Rate 16 02/23/2016 8:02 AM EDT Oxygen Saturation 96% 02/23/2016 8:02 AM EDT Inhaled Oxygen Concentration - - Weight 83 kg (183 lb) 02/22/2016 6:07 AM EDT Height 180.3 cm (5' 11) 02/22/2016 3:09 PM EDT Body Mass Index 25.52 02/22/2016 6:07 AM EDT documented in this encounter Discharge Summaries * Thao Jasmine PA - 02/23/2016 9:59 AM EDT Discharge Summary Patient Name: Yvan Maddox Patient Age: 41 y.o. Language: Guatemalan Race: White Ethnicity: Not nor Admit date: 02/22/2016 Discharge date and time: 02/23/2016 Attending Physician: Dane Chan MD Discharge Physician: Dane Chan MD Follow-up Recommendations for Providers: See discharge instructions for additional details. Future Appointments Date Time Provider Department Center 03/26/2016 2:00 PM [facility] DX ROOM 4 [facility] 03/26/2016 3:00 PM Dane Chan MD [facility] Inpatient Provider Contact Information: Dane Chan MD Orthopedics: [phone] After hours and weekends, call [facility] Assistant Activities Director, , and have the Orthopedic resident paged. Discharge Diagnoses (Hospital Problems) and Secondary Diagnoses (Chronic Problems): Active Hospital Problems Diagnosis ??? Status post total knee replacement, right with Dr. Chan (02/22/16) ??? Knee pain Resolved Hospital Problems Diagnosis Date Resolved No resolved problems to display. Active Non-Hospital Problems Diagnosis ??? Post-traumatic osteoarthritis of right knee ??? History of nasal surgery Operations/Major Procedures: 02/22/2016 Surgeon(s) and Role: * Dane Chan MD - Primary * Shauna Davis MD Procedure(s): @TOTAL KNEE ARTHROPLASTY MODIFIER: ATTUNE STABILIZED FIXED PLATFORM DEPUY History of Presentation: Yvan Maddox is a 41 y.o. male with degenerative joint disease of their right knee. He has failed medical management and after a discussion regarding the risks and benefits of joint replacement surgery they wished to pursue operative treatment. Hospital Course: The patient was admitted for the above operation. DVT prophylaxis is: Aspoirin 81 mg twice daily for 30 days. Patient began rehab on POD#1 with weight bearing as tolerated of right leg remembering touse protection at all times for balance and protection. On POD#1 the operative dressing was dry andintact and was benign. Patient did not have a bowel movement prior to discharge but was passing flatus and was taking a diet without difficulty. Pain is well controlled on oral medications. Patient was voiding spontaneously without issue. By POD#1 the patient was medically stable and was cleared for safe discharge to home per PT. Vital Signs at Discharge: Weight: Wt Readings from Last 1 Encounters: 02/22/16 83 kg (183 lb) Height: Ht Readings from Last 1 Encounters: 02/22/16 180.3 cm (5' 11) HC: HC Readings from Last 1 Encounters: No data found for HC BMI: Body mass index is 25.52 kg/(m^2). Last value Range last 24 hrs Temperature Temp: 36.9 ??C (98.4 ??F) Temp: [36.6 ??C (97.9 ??F)-37.1 ??C (98.8 ??F)] Heart Rate Heart Rate: 72 Heart Rate: [59-72] Blood Pressure BP: 114/74 BP: (108-120)/(68-75) Respiratory Rate Resp: 16 Resp: [14-18] SpO2 SpO2: 96 % SpO2: [95 %-98 %] Art BP BP (Arterial Line): -- Functional and Cognitive Status: Patient mobilizing with walker, cognitively intact at baseline mental status at time of discharge. Important Studies and Lab Data: Labs: Last 3 wbc, hgb, hct plt Recent Labs 02/23/16 0328 02/19/16 1300 WBC 20.7* 10.8* HGB 13.9 14.8 HCT 42.2 45.4 PLATELET 301 290 Last 3 Lytes Recent Labs 02/23/16 0328 02/19/16 1300 NA 136 142 K 4.4 4.6 CL 101 104 CO2 21* 25 BUN 16 8* CREATININE 0.78* 0.98 Studies: No new studies. Transfusions: No Discharge Conditions/Prognosis: Stable, awake, and alert. Mobilizing as noted above, pain controlled on oral medications. Discharge to: Home With outpatient physical therapy, ok with hospital therapist. Updated Allergies/ADRs: Allergies Allergen Reactions ??? Hay [Grass Pollen-[place], Standard] Hives Immunizations Given this Hospitalization: There is no immunization history on file for this patient. Discharge Medications: Your Medications New Medications Dose Details acetaminophen 500 mg Tab Commonly [...] as needed (constipation). 10 mg Refills: 0 gabapentin 300 mg Cap Commonly known as: NEURONTIN Take 1 capsule by mouth nightly for 26 days. Start taking on: 02/24/2016 300 mg Quantity: 26 capsule Refills: 0 oxyCODONE 5 mg Tab Commonly known as: ROXICODONE Take 1-3 tablets by mouth every 3 hours as needed for Pain. Take the smallest dose possible to control your pain. As your pain improves, take smaller doses and increase the time between doses. You may break the tablet to achieve a smaller dose. 5-15 mg Quantity: 90 tablet Refills: 0 polyethylene glycol 17 gram Pwpk Commonly known as: MIRALAX Take 17 g by mouth 2 times daily as needed (bowel regimen/constipation.). 17 g Refills: 0 senna-docusate 8.6-50 mg Tab Commonly known as: PERICOLACE Take 2 tablets by mouth 2 times daily. Bowel regimen while on narcotics. 2 tablet Quantity: 60 tablet Refills: 2 Continued medications, unchanged Dose Details diphenhydrAMINE 25 [...] 02/06/16 Instructions Given to Patient at Discharge: Patient Instructions Activity: 1. Your weight-bearing status is [...] bowel movement. You can also take an zdfr-wli-nfjjqcc medication, Miralax if needed to combat constipation. [...] night for the next 4 weeks. Shower (giulia/sutures): 1. You can shower but [...] let water run gently over the incision. Wound (Mepilex): 1. Staple/suture removal 12-14 days [...] your leg elevated as much as possible. FOLLOW-UP APPOINTMENTS: 1. You will have follow-up appointments at [facility] as indicated below in Future Appointment and Orders. 2. You will need to have x-rays prior to your follow-up appointment. [facility] that appointment for those x-rays. Future Appointments Date Time Provider Department Center 03/26/2016 2:00 PM [facility] DX ROOM 4 [facility] 03/26/2016 3:00 PM Dane Chan MD [facility] If you have questions or concerns: Friday through Friday, 8 AM - 5 PM, please call Dane Barakat MD's office at . If it is after 5 PM, the weekend, or holidays, please call and ask to speak with theOropedic resident on-call. General Instructions Activity: 1. Your weight-bearing status [...] for 30 days. After your dose on 03/23/16 stop the Aspirin, unless you are told [...] bowel movement. You can also take an rjdv-dew-vcavnnz medication, Miralax if needed to combat constipation. [...] Taper off this medication as your pain improves. 5. You are being discharged on gabapentin (Neurontin), a non-narcotic medication that will help with your pain at night and allow you to sleep better. Take this at night for the next 4 weeks. Shower (giulia/sutures): 1. You can shower but [...] let water run gently over the incision. Wound (Mepilex): 1. Staple/suture removal 12-14 days after surgery (approximately 03/07/16). 2. Do not lift the edge of the Mepilex dressing to inspect the incision, it will not re-adhere. Remove your operative dressing 7 days from your surgery (02/29/16). When it is removed you can leave [...] your leg elevated as much as possible. FOLLOW-UP APPOINTMENTS: 1. You will have follow-up appointments at [facility] as indicated below in Future Appointment and Orders. 2. You will need to have x-rays prior to your follow-up appointment on 03/26/16. Please come to Radiology, desk 3T, 1 hour BEFORE that appointment for those x-rays. Future Appointments Date Time Provider Department Center 03/26/2016 2:00 PM [facility] DX ROOM 4 [facility] 03/26/2016 3:00 PM Dane Chan MD [facility] If you have questions or concerns: Friday through Friday, 8 AM - 5 PM, please call Dane Barakat MD's office at . If it is after 5 PM, the weekend, or holidays, please call and ask to speak with theOrthopedic resident on-call. 3. Keep your appointment with Kaden Arenas Physical Therapist. Scheduled 02/26/16 at 7 am. Future Appointments and Orders Future Appointments Provider Department Dept Phone 03/26/2016 2:00 PM [facility] DX ROOM 4 [facility] [place] [phone] Please go to Director Of Clinical Applications Area 3T ([place] Location). 03/26/2016 3:00 PM Dane Chan MD Orthopaedics [phone] Future Orders Complete By Expires Referral to Physical Therapy [REF87 Custom] As directed Process Instructions: Note: Please indicate in the comments any additional Instructions, Precautions or Contra-indications. Scheduling Instructions: Questions: Reason for PT: Right Total Knee Arthroplasty. Specialty Program Eval: Modalities could include: Treatment Focus: Walker standard [EQ135 Custom] As directed Process Instructions: Scheduling Instructions: Comments: Yvan Maddox [address] [address] (home) Telephone Information: Diagnosis: total knee replacement RLE with Unsteady gait Patient???s: Hgt: 180 cm Wgt: 83 kg VENDOR: [facility] Ordering: Front wheel walker Deliver to 's hospital room #: 303b Questions: Vendor Name/Contact information: [facility] Primary Care Provider: JEFF LANE MD [phone] Discharge References/Attachments None documented in this encounter Discharge Instructions * Discharge Instructions* Thao Jasmine PA - 02/23/2016 11:15 AM EDT Activity: 1. Your weight-bearing status is - [...] for 30 days. After your dose on 03/23/16 stop the Aspirin, unless you are told [...] bowel movement. You can also take an flwp-ooj-tdgbfyu medication, Miralax if needed to combat constipation. [...] Taper off this medication as your pain improves. 5. You are being discharged on gabapentin (Neurontin), a non-narcotic medication that will help with your pain at night and allow you to sleep better. Take this at night for the next 4 weeks. Shower (giulia/sutures): 1. You can shower but [...] let water run gently over the incision. Wound (Mepilex): 1. Staple/suture removal 12-14 days after surgery (approximately 03/07/16). 2. Do not lift the edge of the Mepilex dressing to inspect the incision, it will not re-adhere. Remove your operative dressing 7 days from your surgery (02/29/16). When it is removed you can leave [...] your leg elevated as much as possible. FOLLOW-UP APPOINTMENTS: 1. You will have follow-up appointments at [facility] as indicated below in Future Appointment and Orders. 2. You will need to have x-rays prior to your follow-up appointment on 03/26/16. Please come to Radiology, desk 3T, 1 hour BEFORE that appointment for those x-rays. Future Appointments Date Time Provider Department Center 03/26/2016 2:00 PM [facility] DX ROOM 4 [facility] 03/26/2016 3:00 PM Dane Chan MD [facility] If you have questions or concerns: Friday through Friday, 8 AM - 5 PM, please call Dane Barakat MD's office at . If it is after 5 PM, the weekend, or holidays, please call and ask to speak with theOrthopedic resident on-call. 3. Keep your appointment with Kaedn Arenas Physical Therapist. Scheduled 02/26/16 at 7 am. documented in this encounter Medications at Time of Discharge Medication Sig Dispensed Refills Start Date End Date aspirin 325 mg Tablet, Delayed Release (E.C.) [...] rectally daily as needed (constipation). 02/23/2016 03/26/2016 oxyCODONE (ROXICODONE) 5 mg Tablet Take 1-3 tablets by mouth every 3 hours as needed for Pain. Take the smallest dose possible to control your pain. As your pain improves, take smaller doses and increase the time between doses. You may break the tablet to achieve a smaller dose. 90 tablet 02/23/2016 02/25/2016 polyethylene glycol (MIRALAX) 17 gram Powder in [...] as of this encounter Progress Notes * Reji Zuniga RN - 02/23/2016 12:47 PM EDT Focus: Patient discharge. Data: Patients PIV was discontinued, hemostasis was achieved. Band aid to cover site. Pt was dressed in own clothing, pt verbalized return of all belongings. Home educations provided via AVS including the following information: Home medications, follow up appointments, home diet, home activity, incision care, sign and symptoms of infection or clot, and when to seek help or seek emergency help. AVS reviewed with pt and pt's significant other at bedside. Pt or pt's significant other did not have any questions or concerns at time of discharge. Pt was given all scripts and paper work previous to discharge. Pt was fitted with front wheel walker prior to discharge. Pt was sent home with FWW. Pt was transferred to wheel chair with stand by assist and escorted out of facility via wheel chair and [address] [employer]. * Sonia Barboza RN - 02/23/2016 11:15 AM EDT Office of Care Management Discharge Note Patient Destination: home Transportation: ride with girlfriend Christina who is present during interview Time of Discharge: 1200 Level of Care: home with out pt PT Patient Aware: yes and agrees with plan of care Family Notified: at bedside Md to call report to: n/a RN to call report to: n/a Sonia Barboza Office of Care Management Pager [phone] * Daniella Degroot PTA - 02/23/2016 9:33 AM EDT Physical Therapy Note Total Knee Arthroplasty Visit # 2 Patient Profile: Pt. is a 41 y.o. male admitted on 02/22/2016 by Dane Barakat MD for R TKA on 02/22/16. PMH: No past medical history on file. PSH: Past Surgical History Procedure Laterality Date ??? Pro total knee arthroplasty Right 02/22/2016 @TOTAL KNEE ARTHROPLASTY performed by Dane Chan MD at [facility] Social History: Patient lives with his significant other in a home with 10 LETTY. Significant other and family members will be available for support as needed after d/c. 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 DME: cane Precautions/Special Considerations: full code, B LE WBAT Post-operative course: Uneventful. Subjective: I've had knee pain for 22 years.?? Objective: Pt seen for PT to address goals. Cognitive Status: alert and oriented Vitals: SpO2: 98%, HR 50><60 bpm Most recent Hgb value: 13.9 Pain: pt reports his R knee pain is tolerable (recently received pain meds) Functional Mobility: Supine><Sit with HOB flat, independent. Sit><Stand to and from a FWW, independent. Gait: Ambulated ~ 300 ft with a FWW, independent. Gait pattern: Antalgic gait with reciprocal pattern. Stair training: Pt ascended/descended 12 steps with 1 hand rail and cane, independent. Range of Motion: AROM R knee extension = lack 5 degrees, flexion = 90 degrees Today???s Treatment: 1. Therapeutic functional 2. Exercises: ankle pumps, SAQ, SLR, LAQ, quad sets, seated heel slides x 10 reps, NuStep UE & LE ROM exercise for 10 minutes. Informed Consent: The patient understands and agrees to the PT treatment plan and goals. Education: patient and significant other educated on Bed mobility, Transfers, Assistive device/technique, Safety , Precautions/protocol, Gait , Home program, Role of therapy and Discharge planning and verbalizeand demonstrate understanding. Patient status, treatment, and mobility recommendations discussed with nursing staff. Assessment: Pt is POD#1 s/p R TKA. Pt demonstrated increase tolerance and progress to bed mobility, transfers, gait, stair training and exercise activities. Pt has met hospital PT goals to home with family supervision assist and VNA/PT services when medically ready for d/c. Goals: (to be achieved by 02/24/16) Goal met? Yes No Pt will be knowledgeable of prescribed exercises. X Pt will demonstrate AROM knee extension 0-15 degrees and flexion 80-90 degrees x Pt will move supine<>sit independently. X Pt will move sit<>stand independently with a rolling walker. x Pt will ambulate 150 feet independently using a rolling walker x Pt will negotiate 10 steps independently using B railings x Discharge Recommendations: Patient would benefit from discharge home with family assistance and continued home or outpatient therapeutic interventions to progress toward functional goals. Physical Therapist recommends: No other consults recommended at this time Plan: Pt has met hospital PT goals to home with family supervision assist and VNA/PT services when medically ready for d/c. Equipment needs: Rolling walker. Time in/out: 8:45 to 9:30 Total treatment time: 45 minutes Total timed treatment: 45 minutes for therapeutic functional Daniella Degroot PTA Pager: [phone] Physical Therapy Rehabilitation Department * Dane Chan MD - 02/23/2016 5:32 AM EDT Orthopaedic Surgery Progress Note: ID: Yvan Maddox is a 41 y.o. male here with the following surgery: Surgery: R TKA Attending: Bernadette Date: 02/22/16 Subjective and 24 Hour Events: ?? Patient denies chest pain, sob, n/v, light headedness, dizziness ?? Some issues with pain overnight, but improving as of this morning; pain more in thigh than knee (at place of tourniquet) ?? Tolerating PO ?? Voiding without issue Last value Range last 24 hrs Temperature Temp: 36.6 ??C (97.9 ??F) Temp: [36.4 ??C (97.5 ??F)-37.1 ??C (98.8 ??F)] Heart Rate Heart Rate: 72 Heart Rate: [58-78] Blood Pressure BP: 112/69 BP: (108-132)/(68-92) Respiratory Rate Resp: 18 Resp: [12-28] SpO2 SpO2: 97 % SpO2: [95 %-99 %] Intake/Output Summary (Last 24 hours) at 02/23/16 0532 Last data filed at 02/23/16 0255 Gross per 24 hour Intake 3045 ml Output 2475 ml Net 570 ml Well appearing, alert and oriented, appropriate Breathing comfortably RLE: Dressing c/d/i; in cryocuff. Motor intact ADF/APF/EHL/FHL. Sensation grossly intact to light touch in SP/DP/T/S nerve distribution. Foot warm, brisk cap refill distally. Recent Labs 02/23/16 0328 WBC 20.7* HGB 13.9 HCT 42.2 PLATELET 301 Recent Labs 02/23/16 0328 NA 136 K 4.4 CL 101 CO2 21* BUN 16 CREATININE 0.78* GLUCOSE 121 CALCIUM 9.3 Assessment: Yvan Maddox is a 41 y.o. male POD#1 s/p R TKA. Patient doing well overall. Continue to work with PT. Patient may be ready for discharge if pain well-controlled and clears PT. Plan: ?? Weightbearing Status/Precautions: WBAT, mobilize with PT ?? Closure/Dressing: giulia out in 2 weeks (~03/07) ?? Mepilex x 7 days post-op. ?? Anticoagulation: aspirin ?? Antibiotics: kirk op ancef ?? Consults: PT ?? SCDs/NBOs ?? Dispo: home vs rehab per PT ?? Follow up as below Future Appointments Date Time Provider Department Center 03/26/2016 2:00 PM [facility] DX ROOM 4 [facility] 03/26/2016 3:00 PM Dane Chan MD [facility] [address] [place] [address] I saw and evaluated the patient on the date of the primary author's note. I have reviewed and agree with the findings and the plan of care as outlined in their note, with the following additions or alterations: Pain well controlled. Patient ready for DC home on my exam Friday at 11. Operative course discussed. Plan as above. Dane Chan MD, MS Orthopaedic Surgery Attending * Luan Hall MD - 02/22/2016 5:36 PM EDT Orthopaedic Surgery Post-Op Check Note Surgery: Right Total Knee Arthroplasty Patient Active Problem List Diagnosis Date Noted ??? Status post total knee replacement, right with Dr. Chan (02/22/16) 02/22/2016 ??? Knee pain 02/06/2016 ??? Post-traumatic osteoarthritis of right knee 11/13/2015 ??? History of nasal surgery 11/13/2015 S/Events: Mr. Maddox is doing very well post-operatively. He has already walked around the unit without much difficulty, however he now complains of increased pain in his right knee. He also reports some dullness to sensation over his knee. He denies any nausea and has eaten salad and a pizza without difficulty. He has voided. He denies having any CP, SOB, or weakness. . O: Vitals: Temp: [36.4 ??C (97.5 ??F)-37.1 ??C (98.8 ??F)] Heart Rate: [58-78] Resp: [12-28] BP: (108-121)/(68-79) SpO2: [95 %-98 %] Heart Rate from SPO2: [66 bpm] I/O this shift: In: 2165 [P.O.:990; I.V.:1125; IV Piggyback:50] Out: 1225 [Urine:1150; Blood:75] Exam: General: Sitting upright in bed. NAD, awake and alert, responding to questions appropriately. CV: RRR Resp: Breathing comfortably, lungs CTAB RLE: Mepilex dressing c/d/i. In cryocuff. Motor intact to EHL, FHL, TA. Sensation intact in foot/calf. Brisk capillary refill distally. Labs: CBC, BMP pending. A/P: 41 y.o. male POD#0 s/p right TKA, progressing well with stable vitals and uop. - Orders reviewed - Continue all post-operative care * Mallory Lane RN - 02/22/2016 3:48 PM EDT Pt arrived to floor in bed. Pt oriented to room and call light. Pt VSS and pain is moderate. Pt hascryocuff on his right knee. Pt is ordering his dinner and is drinking water. Pt given pain medication and then will be sat at the edge of the bed to see if that will help facilitate voiding. Pt will continue to be monitored. * Kaia Martins RN - 02/22/2016 2:18 PM EDT 1345- Pt looking @ magazines - still waiting for room to be cleaned. * Kaia Martins RN - 02/22/2016 12:52 PM EDT 1250- Break relief done. Report rec'd. Waiting for room to be cleaned now. * Allegra Mccracken RN - 02/22/2016 12:16 PM EDT Break coverage * Kaia Martins RN - 02/22/2016 12:13 PM EDT 1210- Pt eating princess crackers. Still waiting for a room. * Kaia Martins RN - 02/22/2016 11:31 AM EDT 1115- Pt met disch criteria @ 1110 - waiting for a room. * Kaia Martins RN - 02/22/2016 11:01 AM EDT 1100- Pt kimberlee sips of H2O. * Kaia Martins RN - 02/22/2016 10:56 AM EDT 1050- Visitor in. * Kaia Martins RN - 02/22/2016 10:40 AM EDT 1015- Cryocuff placed on R knee & autochill system being utilized. * Kaia Martins RN - 02/22/2016 10:29 AM EDT 1015- Str. Cath done for bladder scan = 777. documented in this encounter H&P Notes * Dane Chan MD - 02/22/2016 6:10 AM EDT The patient's history and physical exam have been reviewed and completed. There has been no interval change from that of the pre-operative history and physical exam done within the last 30 days. I saw and evaluated the patient on the date of the primary author's note. I have reviewed and agree with the findings and the plan of care as outlined in their note, with the following additions or alterations: Risks, benefits, alternatives and recovery reviewed. The patient has not had a cigarette since we last saw eachother. Sine we moved up his surgery date, he was steadily decreasing his tobacco use, hehas been tobacco free for 2 days, and he and his , who accompanies him, are committed to completely avoiding tobacco in the post operative period, I think it is reasonable to proceed with R TKA. He voiced understanding of the consequences of Smoking, including infection and wound breakdown. Dane Chan MD, MS Orthopaedic Surgery Attending documented in this encounter Miscellaneous Notes * Initial Assessments - Sonia Barboza RN - 02/23/2016 11:09 AM EDT Pt needs wheeled walker to go home. Order is pended and provider aware. Ordered from ortho care, shubham delivered to pt's room. * Initial Assessments - Sonia Barboza RN - 02/23/2016 11:03 AM EDT Office of Care Management Initial Assessment Sonia Barboza RN reviewed record and discussed patient with Care Team. Source of Information: patient and girlfriend Introduced self/reviewed role; services accepted. Reason for Hospitalization: knee surgery RLE No past medical history on file. Hospitalizations Within the Past 30 Days: none Anticipated Length Of Stay (If known): 2-3 days Current Decision-Making Capacity: full Advance Care Planning: AD copy obtained and copied for EMR Current Coping/Education/Information Needs: pt states he understands care needs, is able to teach back and return demonstrate to RN ANDREI regarding s/s of SSI, how to use cryo cuff. Current Functional Ability: OOB indep with w/w Functional Status Prior to Admission: indep in all ADL/IADL Home Environment: home has bed, bath upstairs but apartment has walk out lower level with kitchenand living room. Pt can enter upper story with only two stairs and intends to stay on upper floor as much as possible until his mobility improves. Social & Family Supports/Community Resources: lives with girlfriend and reports he has more people around to help than I can imagine needing Behavioral Health History: denies Substance Use/Abuse: denies Other Pertinent/Service Specific Information: Pt has previously worked with Kaden Arenas PT in [facility]; [phone]; JOSE DE JESUS FORBES made PT appt with Tess Fletcher for 0700 on 02/26/16. Pt aware and accepted appt. Health/Prescription Coverage: Primary Insurance: Medicaid, [place] Secondary Insurance: n/a Prescription Coverage: [place] Preferred Pharmacy: [facility] Other: n/a Primary Care Provider: JEFF LANE MD [phone] Patient/Caregiver Goals of Treatment: very eager to return home Potential Needs for Transition of Care: Rehab/SNF: n/a Home Health: n/a DME: [facility] Dialysis: n/a Community Resources: PT out pt as above Transportation: with girlfriend Other: n/a Anticipated Barriers to Discharge/Special Considerations: none Plan: home with out-pt PT A member of the Care Management team will continue to monitor progress, follow for continuity of care and assist with transition of care planning. Sonia Barboza RN Pager: [phone] * Plan of Care - Wanda Campbell RN - 02/23/2016 2:25 AM EDT OUTCOME EVALUATION NOTE: OUTCOME SUMMARY: Patient had issues with pain at beginning of shift. Patient receiving oxycodone 5-10mg q.4.h. wrote order for 2mg of Dilaudid for break through with some reported relief. Patient also receiving scheduled Toradol and Tylenol. Patient also has Tramadol q.6.h PRN. Dressing to R knee CDI. Cryocuff maintained. Patient receiving scheduled Ancef. Patient voiding adequate amounts of CYU in urinal withlow PVR's. Neurovascular checks WDL. PLAN MOVING FORWARD: Pain control, neurovascular checks, IV abx, PT/OT, D/C to home with VNA possibly today INDIVIDUALIZED FALL PREVENTION INTERVENTIONS: Patient-specific fall risk factors per assessment: [current deficits]: Narcotics and TKA Assistance [level of assistance required for transfers and ambulation]: 1 assist with FWW Supervision [direct monitoring required during toileting and ADLs]: Arms reach with ADL's Surveillance [continuous indirect monitoring]: Purposeful Rounding Patient-specific fall prevention interventions for sensory deficits provided, if applicable: [X] Yes CPG GOAL OUTCOME EVALUATION: Progress Problem: General Plan of Care Goal: Plan of Care Review 02/23/16 0220 Plan of Care Review Plan of Care Outcome Status ongoing (interventions implemented as appropriate) Progress progress toward functional goals as expected Coping/Psychosocial Response Interventions Plan of Care Reviewed with patient Goal: Fall Prevention-Safe Patient Handling 02/22/162106 Frye Fall Risk History of Falling 0 Secondary Diagnosis 15 Ambulatory Aids 15 Intravenous Therapy/Heparin/Saline Lock 20 Gait/Transferring 10 Mental Status 0 Score 60 Activity and Safety Assistive Device Front wheel walker OTHER Frye Fall Risk High Safety Interventions Safety Precautions/Fall Reduction assistive device;commode/urinal/bedpan at bedside;elopement precautions initiated;environmental modification;fall reduction program maintained;family at bedside;lighting adjusted for task/safety;low bed;nonskid shoes/slippers when out of bed;supervised activity Musculoskeletal Interventions Activity/Level of Assistance up in room;with 1-person assist;with walker Positioning independent Goal: Infection Control 02/22/162106 Coping/Psychosocial Response Interventions Counseling verbalization of feelings encouraged;understanding of situation facilitated Safety Interventions Isolation Precautions standard precautions maintained Infection Prevention bronchial hygiene promoted;environmental surveillance;hydration promoted;nutrition promoted;rest/sleep promoted Problem: Skin Integrity Impairment, Risk/Actual (Adult, Obstetrics) Intervention: Pressure Reduction Devices 02/22/162106 Skin Interventions Pressure Reduction Devices pressure-redistributing mattress utilized Intervention: Pressure Reduction Techniques 02/22/162106 Skin Interventions Pressure Reduction Techniques tubing/devices free from under/on patient Intervention: Skin/Mucous Membrane Protection 02/22/162106 Skin Interventions Skin/Mucous Membrane Protection tubing/devices free from under/on patient Intervention: Wound Healing Promotion 02/22/162106 Skin Interventions Wound Healing Promotion adequate fluids provided;adequate nutrition provided;sleep/rest promoted Goal: Skin Integrity/Wound Healing Patient will demonstrate the desired outcomes. 02/23/16 0220 Skin Integrity Impairment, Risk/Actual (Adult, Obstetrics) Skin Integrity/Wound Healing making progress toward outcome * Initial Assessments - Desiree Bose, PT - 02/22/2016 3:45 PM EDT Physical Therapy Evaluation Total Knee Arthroplasty Patient Profile: Pt. is a 41 y.o. male admitted on 02/22/2016 by Dane Barakat MD for R TKA on 02/22/16. PMH: No past medical history on file. PSH: No past surgical history on file. Social History: Patient lives with his significant other in a home with 10 LETTY. Significant other and family members will be available for support as needed after d/c. 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 DME: cane Precautions/Special Considerations: full code, B LE WBAT Post-operative course: Uneventful. Subjective: I can move and lift my leg?? Objective: Pt seen for initial evaluation today. Cognitive Status: alert and oriented Vitals: SpO2: 98%, HR 67bpm Most recent Hgb value: 14.8 Pain: pt reports his R knee pain is tolerable (recently received pain meds) Strength: ?? L LE grossly 5/5 throughout ?? R LE 5/5 at hip and ankle, 3-/5 knee flexion and extension Sensation: light touch intact throughout B LEs. Functional Mobility: Supine->sit: independent Sit->supine: NA Sit->stand: supervision with RW Stand->sit: supervision with RW Gait: Ambulated ~25ft (to doorway and back) using RW with supervision. Gait pattern: Antalgic gait with decreased B step length but reciprocal pattern. Range of Motion: AROM R knee extension = lack 9 degrees, flexion = 59 degrees Today???s Treatment: 1. Evaluation 2. Pt demonstrated good understanding of all post-op exercises including ankle pumps, quad sets, short arc quads, seated heel slides, and long arc quads. Pt in possession of handout illustrating the exercises and was instructed to perform them as able 3x per day. Informed Consent: The patient understands and agrees to the PT treatment plan and goals. Education: patient and significant other educated on Bed mobility, Transfers, Assistive device/technique, Safety , Precautions/protocol, Gait , Home program, Role of therapy and Discharge planning and verbalizeand demonstrate understanding. Patient status, treatment, and mobility recommendations discussed with nursing staff. Assessment: Pt is POD#0 s/p R TKA. Pt presents with pain, decreased R knee A/PROM, and decreased strength. These impairments currently limit pt's ability to safely and independently perform transfers, ambulationand stair negotiation. Pt will benefit from PT to address his functional deficits to restore prior level of function. Anticipate discharge home with family support and follow up home vs outpatient PTservices. Goals: (to be achieved by 02/24/16) Goal met? Yes No Pt will be knowledgeable of prescribed exercises. X Pt will demonstrate AROM knee extension 0-15 degrees and flexion 80-90 degrees Pt will move supine<>sit independently. X Pt will move sit<>stand independently with a rolling walker. Pt will ambulate 150 feet independently using a rolling walker Pt will negotiate 10 steps independently using B railings Discharge Recommendations: Patient would benefit from discharge home with family assistance and continued home or outpatient therapeutic interventions to progress toward functional goals. Physical Therapist recommends: No other consults recommended at this time Plan: Patient to be seen daily for physical therapy to include Therapeutic exercises, Therapeutic functional activities and Gait training. Patient agrees to the plan as stated. Equipment needs: Rolling walker. Activity plan w/nursing assist (discussed with nursing staff): ?? Pt to ambulate with rolling walker and supervision progressing to independence ?? Up to chair frequently Time in/out: [id number] Total treatment time: 30 minutes Total timed treatment: 10 minutes (ANNETTE) Desiree Bose PT DPT Pager: [phone] Physical Therapy Rehabilitation Department * Op Note - Dane Chan MD - 02/22/2016 9:56 AM EDT [facility] Operative Note Patient Name: Yvan Maddox : [id number] MR#: [id number] Case Date: 02/22/2016 Surgeon: Surgeon(s) and Role: * Dane Chan MD - Primary * Shauna Davis MD Preoperative diagnosis: Right knee degenerative arthritis Postoperative diagnosis: Right knee degenerative arthritis Procedure(s): RIGHT TOTAL KNEE ARTHROPLASTY MODIFIER: ATTUNE STABILIZED FIXED PLATFORM DEPUY Anesthesia: Spinal Estimated Blood Loss: 75 mL Specimens removed during surgery: None Drains: Surgical Closure: Primary Closure - closure [...] and Specimen details pertinent to this patient.) IMPLANTS: Implant Name Type Inv. Item Serial No. Welding Equipment Sales Representative Lot No. LRB No. Used Action CEMENT,BNE,SMARTSET,GHV,40G ([id number]) - [id number] IMPLANTS CEMENT,BNE,SMARTSET,GHV,40G ([id number]) Depuy Registration Specialist - [id number] Right 1 Implanted TRAY,ATTUNE,FB,TIB,BSE,SZ7 ([id number]) (AUTOREQ) - [id number] IMPLANTS TRAY,ATTUNE,FB,TIB,BSE,SZ7 ([id number]) (AUTOREQ) Depuy Registration Specialist - [id number] Right 1 Implanted COMPO,ATTUNE,PS,FEM,SZ7,RT ([id number]) (AUTOREQ) - [id number] IMPLANTS COMPO,ATTUNE,PS,FEM,SZ7,RT ([id number]) (AUTOREQ) Depuy Registration Specialist - [id number] Right 1 Implanted MACEDO,ATTJONAS,MDL,DOME,41MM ([id number]) (AUTOREQ) - [id number] IMPLANTS MACEDO,ATTUNE,MDL,DOME,41MM ([id number]) (AUTOREQ) Depuy Registration Specialist - [id number] Right 1 Implanted INSER,ATTUNE,PS,FB,SZ7,5MM ([id number]) (AUTOREQ) - [id number] IMPLANTS INSER,ATTUNE,PS,FB,SZ7,5MM ([id number]) (AUTOREQ) Depuy Registration Specialist - [id number] Right 1 Implanted INDICATIONS FOR PROCEDURE: This is a 41 y.o.-year-old male with degenerative joint disease of their right knee. He has failed medical management and after a discussion regarding the risks and benefits of joint replacement surgery they wished to pursue operative treatment. DESCRIPTION OF PROCEDURE: The patient was correctly identified in the same day holding area, the proper operative site was marked and consent was confirmed by the team. The patient was wheeled to the operating room and placedin the supine position on the operating table where general anesthesia was administered. . All bonyprominences were well padded. Preoperative antibiotics were given. A time-out was performed to confirm patient identity, planned surgery, and site according to the [facility] [place] Protocol. A nonsterile tourniquet was placed high around the upper thigh and a post was placed to helped with intra-op positioning. The lower extremity was then prepped and draped in the usual sterile fashion. A midline i ncision was marked over the anterior aspect of the knee. An Ioban dressing was then placed over theleg. The leg was exsanguinated and the tourniquet inflated to 250 mmHg where it remained for a total of 90 minutes. Incision: A midline incision using a 10 blade was made and full thickness skin flaps were developed. A quadriceps splitting arthrotomy carried down to the superiomedial pole of the patella was used to enter the knee joint. Straw colored synovial fluid was encountered. A subperiosteal peal was carried around the medial tibial plateau. The infrapatellar fat pad was removed with care to protect the patellar tendon. The anterior horns of the menisci and the anterior and posterior cruciate ligaments were sacrificed. The patella was everted and the knee carefully flexed up. The medial and lateral menisci were resected. There were grade 4 changes of the medial compartment, lateral femoral condyle, and largeosteophytes in all 3 compartments. Femur: With the knee flexed the intersection of Whitesides line and the intercondylar axis was identified and the femoral canal was entered using a step drill and T- handled canal finder. Care was taken to suction the hole between each step to reduce the risk of emboli. The intramedullary femoral guide rodwas placed and set for a 9-mm distal resection with 5 degrees of valgus tilt. The cutting block wassecured into place with pins. The intramedullary guide marko was removed and an oscillating saw was used to perform the distal femoral cut. The cutting block was removed and the sizing guide was placedon the distal cut femur measuring a size 7. The posterior referencing guide was pinned into 3 degrees of external rotation using the intercondylar axis as a reference . The AP cutting block was then pinned in place and the anterior, posterior and chamfer cuts were made. Tibia cut and femoral box cut: The extramedullary tibial alignment guide was placed in reference to the mechanical axis and set for a 2mm resection off the more involved medial compartment. The cutting block was secured into placewith minimal posterior slope. An oscillating saw was used to make the proximal tibia resection. Meti culous resection of all overhanging osteophytes was carried out. A size 7 tibial tray was placed and found to give adequate bony coverage. Flexion and extension blocks confirmed adequate resection. We returned to the femur and the appropriate sized box cutting guide was placed over the distal femurand pinned into place. The box cut was then made using a narrow oscillating saw. Any remaining meniscus was resected with Bovie cautery. The appropriate sized femoral trial component was then impacted into position and posterior osteophytes were removed using a rivero elevator. The trial tibial tray and 5mm polyethylene trial were placed and the knee was brought through a full range of motion and found to be stable. Patella: Attention was now turned to the patella which was measured to be 27 mm thick. Synovium surrounding the patella and osteophytes were removed. Approximately 9.5 mm of bone was resected with an oscillating saw using a patellar clamp. A sizing guide was placed and a 41 Oval medialized button was determined to be most appropriate. The drill guide was placed and three peg holes were created using a step drill. A trial patellar button was placed, the patella was reduced and the knee was brought through a full range of motion and found to be stable with good tracking of the patella. Femoral lug holeswere drilled. Final Preparation: All trial components were then removed and the final preparation of the tibia was performed using atop hat and step drill followed by tibial broach. The entire knee was then copiously irrigated withpulse lavaged withnormal saline. On the back table the antibiotic cement was mixed for approximately 2 minutes. During that time all bony surfaces were dried. The final tibial component was opened and and cement was placed on the exposed tibial surface making sure adequate bone cement interdigitation occurred. The final tibial component was then impacted into position. The final femoral componentwas then impacted into position after cement was placed on the exposed femoral surface, making sure adequate bone cement interdigitation occurred. . The trial polyethylene insert was placed and the knee brought into extension. The exposed patella bony surface was dried and the patella was cemented into position and held with a clamp. After the cement had polymerized, the patella was reduced and the knee was brought through a final range of motion and found to be stable. The trial poly ethylene was removed, and any free cement fragments were removed. The capsule was injected with a Mixture of Toradol, clonidine and local anesthetic. The final polyethylene component was opened and inserted. The knee was taken through a full range of motion and found to be stable. Closure: The knee was then copiously irrigated with pulse lavage normal saline. The tourniquet was deflated and adequate hemostasis was obtained with Bovie cautery. The arthrotomy was closed with a 0 Vicryl. The wound was irrigated once again with pulse lavage. The capsule was injected with local anestheticThe subcutaneous tissues were reapproximated with a 0 Vicryl and 2-0 Vicryl in sequential layers. The skin was closed using giulia. The wounds were cleansed, dried and a Mepilex dressing was placed over the incision. A [id number] Jac bandage was applied. A CryoCuff and Venodyne were applied. Thepatient was awoken from the anesthetic, transferred back to the hospital bed, and taken to postanesthesia care unit in stable condition. All sponge and needle counts were correct at the end of the case. There were no obvious intraoperative complications. Infection Bundle used? N/A Attestation: Case Date: 02/22/2016 I was present and I participated during the entire procedure (does not need to include opening and closing). DANE CHAN MD 02/22/2016 documented in this encounter Plan of Treatment Scheduled Referrals Name Type Priority Associated Diagnoses Orde r Schedule Referral to Physical Therapy Outpatient Referral Routine Status post total knee replacement, right with Dr. Chan (02/22/16) Ordered: 02/23/2016 documented as of this encounter Procedures Procedure Name Priority Date/Time Associated Diagnosis Comments IMPLANTABLE DEVICES SCAN 02/24/2016 12:00 AM EDT MILLINERY SALESPERSON SCAN 02/24/2016 12:00 AM EDT HEMOGRAM Routine 02/23/2016 3:28 AM EDT DIFFERENTIAL, AUTOMATED Routine 02/23/2016 3:28 AM EDT CBC (WITH DIFF) Routine 02/23/2016 3:28 AM EDT BASIC METABOLIC PANEL Routine 02/23/2016 3:28 AM EDT MODIFIER: ATTUNE STABILIZED FIXED PLATFORM DEPUY Yes 02/22/2016 7:20 AM EDT Right knee degenerative arthritis TOTAL KNEE ARTHROPLASTY (WRVU 19.6) Yes 02/22/2016 7:20 AM EDT Right knee degenerative arthritis documented in this encounter Results * SCAN DOC: IMPLANTABLE DEVICES (02/24/2016 12:00 AM EDT) Scanning Provider MEDIA MGR SCAN EXT O RDR/RSLT * SCAN DOC: MILLINERY SALESPERSON (02/24/2016 12:00 AM EDT) Anatomical Region Laterality Modality Other Scanning Provider MEDIA MGR SCAN EXT O RDR/RSLT * (ABNORMAL) Differential, Automated (02/23/2016 3:28 AM EDT) Neutrophil % 86.6 % [facility] Neutrophil Absolute 17.93(H) 1.70 - 6.10 x10(3)/mc L [facility] Lymph % 7.1 % [facility] Lymphocytes Abs 1.5 0.9 - 3.2 x10(3)/mc L [facility] Monocyte % 5.1 % [facility] Monocyte Abs 1.1(H) 0.3 - 0.9 x10(3)/[facility] Eos % 0.0 % [facility] Eosinophils Abs 0.0 0.0 - 0.4 x10(3)/[facility] Basophil % 0.2 % [facility] Baso Absolute 0.0 0.0 - 0.1 x10(3)/[facility] Immature Gran % 1.00 % [facility] Comment: Immature granulocytes(IG's)percentage and absolute count will include metamyelocytes, myelocytes, and promyelocytes. Blood smears from CBCs yielding IG's will be scanned manually for concordance. If this scan disagrees with the automated IG or if promyelocytes are noted, a manual differential will be performed. Immature Gran Absolute 0.20(H) 0.00 - 0.04 x10(3)/[facility] Blood specimen (specimen) 02/23/2016 3:28 AM EDT 02/23/2016 3:40 AM EDT Narrative Resulting Agency Comment Spec In Lab Dane Chan MD HEMATOLOGY ORDERABLE S [facility] [place] [address] * (ABNORMAL) Hemogram (02/23/2016 3:28 AM EDT) White Blood Cell 20.7(H) 4.0 - 9.5 x10(3)/[facility] Red Blood Cell 4.74 4.58 - 5.54 x10(6)/[facility] Hemoglobin 13.9 13.7 - 16.5 gm/dL [facility] Hematocrit 42.2 40.5 - 48.5 % [facility] Mean Cell Volume 89.0 82.9 - 93.1 fL [facility] Mean Cell Hemoglobin 29.3 27.5 - 32.1 pg [facility] Mean Cell Hemoglobin Concentration 32.9 32.0 - 35.7 gm/dL [facility] Platelet 301 145 - 357 x10(3)/mc L [facility] RDW Standard Deviation 43.2 36.0 - 45.0 fL [facility] RDW coefficient of variation 13.1 11.4 - 13.8 % [facility] Mean Platelet Volume 10.1 7.6 - 12.9 fL [facility] NRBC% auto 0.0 % [facility] NRBC Absolute 0.000 0.000 - 0.000 x10(3)/mc L [facility] Blood specimen (specimen) 02/23/2016 3:28 AM EDT 02/23/2016 3:40 AM EDT Narrative Resulting Agency Comment Spec In Lab Dane Chan MD HEMATOLOGY ORDERABLE S Performing Organization Address City/State/[facility] Co de Phone Number [facility] [place] [address] * (ABNORMAL) Basic Metabolic Panel (non-fasting) (02/23/2016 3:28 AM EDT) Glucose 121 65 - 199 mg/dL [facility] Comment:Diabetes: >=200 mg/d L plus symptoms Blood Urea Nitrogen 16 10 - 20 mg/dL [facility] Creatinine 0.78(L) 0.80 - 1.50 mg/dL [facility] Comment: Please note that the pediatric reference intervals supplied above were not validated at [facility]. Results from pediatric patients should be interpreted in conjunction to the patient's age, height and muscle mass. Sodium 136 135 - 145 mmol/L [facility] Potassium 4.4 3.5 - 5.0 mmol/L [facility] Comment: Please note: ??Patients with WBC >100,000 may have falsely elevated Potassium levels. ??For accurate Potassium quantification in these patients send serum separator tube (gold top) for subsequent determinations. ??Contact the Clinical Chemistry Laboratory if there are any questions. Chloride 101 98 - 107 mmol/L [facility] Carbon Dioxide 21(L) 22 - 31 mmol/L [facility] Anion Gap 14 5 - 15 mmol/L [facility] Calcium 9.3 8.5 - 10.5 mg/dL [facility] LABORATORY Est Glomerular Filtration Rate >60 >=60 [facility] Comment: This estimated GFR (eGFR) value was calculated using the MDRD equation which has been validated on patients between the ages of 18 and 70. The MDRD should not be used to assess kidney function in patients < 18 years of age or in patients with extremes of body mass, or in patients with acute kidney failure. This value should be multiplied by 1.2 for patients. For further information please copy and paste the following links into your internet browser. [email or web address] Blood specimen (specimen) 02/23/2016 3:28 AM EDT 02/23/2016 3:40 AM EDT Narrative Resulting Agency Comment Spec In Lab Dane Chan MD CHEMISTRY ORDERABLES [facility] [address] documented in this encounter Visit Diagnoses Diagnosis Status post total knee replacement, right with Dr. Chan (02/22/16) Knee pain Pain in joint, lower leg Status post total knee replacement, right with Dr. Chan (02/22/16) documented in this encounter Admitting Diagnoses Diagnosis Knee pain Pain in joint, lower leg documented in this encounter Administered Medications Inactive Administered Medications - up to 3 most recent administrations Medication Order MAR Action Action Date Dose Rate Site acetaminophen (TYLENOL) tablet 1,000 mg 1,000 mg, Oral, ONCE, 1 dose, On Kourtney 02/22/16 at 0630, Administer on arrival in Same Day Program, Day of Surgery (Day of Procedure), Routine Given 02/22/2016 6:30 AM EDT 1,000 mg acetaminophen (TYLENOL) tablet 1,000 mg 1,000 mg, Oral, EVERY 8 HOURS SCHEDULED, First dose on Kourtney 10/6/16 at 1400, Until Discontinued, Maximum dose of acetaminophen is 4000 mg from all sources in 24 hours., Routine Given 02/23/2016 5:10 AM EDT 1,000 mg Given 02/22/2016 9:00 PM EDT 1,000 mg Given 02/22/2016 1:45 PM EDT 1,000 mg aspirin EC tablet 325 mg 325 mg, Oral, DAILY, First dose on Fri02/23/16 at 0900, Until Discontinued, Routine Given 02/23/2016 8:11 AM EDT 325 mg ceFAZolin (ANCEF) 1g in dextrose 5% 50mL 1,000 mg (1 g), Intravenous, EVERY 8 HOURS, 3 doses, First dose on Kourtney 02/22/16 at 1100, Last dose on Fri02/23/16 at 0300, Administer over 30 Minutes, Adjust to 4 hours from intraoperative dose. * Beta-lactam based antibiotics (eg. Ampicillin, Cefazolin, Aztreonam) should be administered within 4 hours of the preceding intraoperative dose. * Vancomycin, Flouroquinolones, Clindamycin, Gentamicin, and Metronidazole should be administered within 8 hours of the preceding intraoperative dose., Recovery (Recovery-Hospital Unit), Indication for (Active or Suspected): Prophylaxis Given 02/23/2016 3:52 AM EDT 1,000 mg 100 mL/ hr Given 02/22/2016 7:32 PM EDT 1,000 mg 100 mL/hr Given 02/22/2016 11:04 AM EDT 1,000 mg 100 mL/hr celecoxib (CeleBREX) capsule 200 mg 200 mg, Oral, 2 TIMES DAILY, First dose on Kourtney 02/22/16 at 1100, Until Discontinued, Routine Given 02/23/2016 8:10 AM EDT 200 mg Given 02/22/2016 8:59 PM EDT 200 mg celecoxib (CeleBREX) capsule 400 mg 400 mg, Oral, ONCE, 1 dose, On Kourtney 02/22/16 at 0630, Administer on arrival to Same Day Program, Day of Surgery (Day of Procedure), Routine Given 02/22/2016 6:30 AM EDT 400 mg dexamethasone (DECADRON) tablet 4 mg 4 mg, Oral, DAILY, 2 doses, First dose on Kourtney 02/22/16 at 1700, Last dose on Fri02/23/16 at 0900, Routine Given 02/23/2016 8:11 AM EDT 4 mg Given 02/22/2016 4:54 PM EDT 4 mg gabapentin (NEURONTIN) capsule 300 mg 300 mg, Oral, ONCE, 1 dose, On Kourtney 02/22/16 at 0630, Administer on arrival in Same Day Program, Day of Surgery (Day of Procedure), Routine Given 02/22/2016 6:30 AM EDT 300 mg gabapentin (NEURONTIN) capsule 300 mg 300 mg, Oral, NIGHTLY, First dose on Fri02/24/16 at 2100, Until Discontinued, Routine gabapentin (NEURONTIN) capsule 600 mg 600 mg, Oral, NIGHTLY, 2 doses, First dose on Kourtney 02/22/16 at 2100, Last dose on Fri02/23/16 at 2100, Routine Given 02/22/2016 8:58 PM EDT 600 mg HYDROmorphone (DILAUDID) tablet 2 mg 2 mg, Oral, ONCE, 1 dose, On Fri02/23/16 at 0100, Routine Given 02/23/2016 12:45 AM EDT 2 mg HYDROmorphone (DILAUDID) tablet 2 mg 2 mg, Oral, EVERY 4 HOURS PRN, Starting on Fri02/23/16 at 0534, Until Fri02/23/16 at 1455, Pain, For breakthrough pain not relieved by oxycodone, Routine ketorolac (TORADOL) injection 15 mg 15 mg, Intravenous, EVERY 6 HOURS SCHEDULED, 4 doses, First dose on Kourtney 02/22/16 at 1100, Last dose on Fri02/23/16 at 0800, Routine Given 02/23/2016 7:00 AM EDT 15 mg Given 02/23/2016 3:52 AM EDT 15 mg Given 02/22/2016 8:59 PM EDT 15 mg lactated ringers infusion 1,000 mL 1,000 mL, at 100 mL/hr, Intravenous, CONTINUOUS, Starting on Kourtney 02/22/16 at 0645, Until Kourtney 02/22/16 at 1031, Day of Surgery (Day of Procedure) New Bag 02/22/2016 6:45 AM EDT 1,000 mLs 100 mL/hr melatonin tablet 3 mg 3 mg, Oral, NIGHTLY, First dose on Fri02/23/16 at 0100, Until Discontinued, Routine Given 02/23/2016 12:45 AM EDT 3 mg midazolam (PF) (VERSED) 1 mg/mL injection 1 mg 1 mg, Intravenous, EVERY 5 MIN PRN, Starting on Kourtney 02/22/16 at 0623, Until Kourtney 02/22/16 at 1129, Sleep, or prior to injection of local anesthetic, Hold for delirium/agitation. (Maximum dose 5 mg)., Day of Surgery (Day of Procedure), Routine Given 02/22/2016 6:50 AM EDT 1 mg multivitamin Pegh-Ku-JP-Min (THERAPEUTIC-M) 27-0.4 mg tablet 1 tablet 1 tablet, Oral, DAILY, First dose on Fri02/23/16 at 0900, Until Discontinued Given 02/23/2016 8:11 AM EDT 1 tablet ondansetron (ZOFRAN) injection 4 mg 4 mg, Intravenous, EVERY 8 HOURS PRN, Starting on Kourtney 02/22/16 at 1509, Until Fri02/23/16 at 1455, Nausea, May repeat times one in 30 minutes if ineffective. If multiple antiemetics are ordered, use ondanstron first, Recovery (Recovery-Hospital Unit) ondansetron (ZOFRAN) tablet 4 mg 4 mg, Oral, EVERY 8 HOURS PRN, Starting on Kourtney 02/22/16 at 1509, Until Fri02/23/16 at 1455, Nausea, Vomiting, If multiple antiemetics are ordered, use ondansetron first. PO Preferred. If patient unable to take PO, may give IV if ordered. May repeat times one in 45 minutes if ineffective., Recovery (Recovery-Hospital Unit), Routine oxyCODONE (ROXICODONE) immediate release tablet 10 mg 10 mg, Oral, EVERY 4 HOURS PRN, Starting on Kourtney 02/22/16 at 1031, Until Fri02/23/16 at 0535, Pain, severe pain (7-10) for pain not relived by tramadol, May give an additional 5 mg in 30 minutes once if pain not relieved., Routine Given 02/23/2016 3:51 AM EDT 10 mg Given 02/22/2016 11:55 PM EDT 10 mg Given 02/22/2016 6:31 PM EDT 10 mg oxyCODONE (ROXICODONE) immediate release tablet 10 mg 10 mg, Oral, EVERY 3 HOURS PRN, Starting on Fri02/23/16 at 0545, Until Fri02/23/16 at 1455, Pain, severe pain (7-10) for pain not relived by tramadol, May give an additional 5 mg in 30 minutes once if pain not relieved., Routine Given 02/23/2016 11:25 AM EDT 10 mg Given 02/23/2016 8:12 AM EDT 10 mg oxyCODONE (ROXICODONE) immediate release tablet 5 mg 5 mg, Oral, EVERY 3 HOURS PRN, Starting on Fri02/23/16 at 0545, Until Fri02/23/16 at 1455, Pain, mild to moderate pain (1-6) for pain not relived by tramadol, May give an additional 5 mg in 30 minutes once if pain not relieved., Routine pantoprazole (PROTONIX) tablet 20 mg 20 mg, Oral, DAILY, First dose on Fri02/23/16 at 0900, Until Discontinued, DO NOT CRUSH OR OPEN Given 02/23/2016 8:11 AM EDT 20 mg polyethylene glycol (MIRALAX) packet 17 g 17 g, Oral, 2 TIMES DAILY, First dose on Fri02/22/16 at 2100, Until Discontinued, Routine Given 02/22/2016 8:59 PM EDT 17 g senna-docusate (PERICOLACE) 8.6-50 mg per tablet 2 tablet 2 tablet, Oral, 2 TIMES DAILY, First dose on Kourtney 02/22/16 at 2100, Until Discontinued, Routine Given 02/23/2016 8:10 AM EDT 2 tablets Given 02/22/2016 8:59 PM EDT 2 tablets sodium chloride 0.9 % flush 5 mL 5 mL, Intravenous, 2 TIMES DAILY, First dose on Kourtney 02/22/16 at 2100, Until Discontinued, Recovery (Recovery-Hospital Unit), Routine Given 02/23/2016 8:12 AM EDT 5 mLs Given 02/22/2016 9:07 PM EDT 5 mLs traMADol (ULTRAM) tablet 50 mg 50 mg, Oral, EVERY 6 HOURS PRN, Starting on Kourtney 02/22/16 at 1031, Until Fri02/23/16 at 1455, Pain, Routine Given 02/22/2016 9:00 PM EDT 50 mg Given 02/22/2016 3:43 PM EDT 50 mg documented in this encounter Active and Recently Administered Medications Times are shown in EDT. Scheduled Medication Order 02/21/2016 02/22/2016 02/23/2016 acetaminophen (TYLENOL) tablet 1,000 mg (COMPLETED) 1,000 mg, Oral, ONCE, 1 dose, On Kourtney 02/22/16 at 0630, Administer on arrival in Same Day Program, Day of Surgery (Day of Procedure), Routine 0630 (Given - Provider: Reji Ribeiro RN) acetaminophen (TYLENOL) tablet 1,000 mg 1,000 mg, Oral, EVERY 8 HOURS SCHEDULED, First dose on Kourtney 02/22/16 at 1400, Until Discontinued, Maximum dose of acetaminophen is 4000 mg from all sources in 24 hours., Routine 1345 (Given - Provider: Kaia Martins RN)2100 (Given - Provider: Wanda Campbell RN) 0510 (Given - Provider: Wanda Campbell RN) aspirin EC tablet 325 mg 325 mg, Oral, DAILY, First dose on Fri02/23/16 at 0900, Until Discontinued, Routine 0811 (Given - Provid er: Reji Zuniga RN) ceFAZolin (ANCEF) 1g in dextrose 5% 50mL (COMPLETED) 1,000 mg (1 g), Intravenous, EVERY 8 HOURS, 3 doses, First dose on Kourtney 02/22/16 at 1100, Last dose on Fri02/23/16 at 0300, Administer over 30 Minutes, Adjust to 4 hours from intraoperative dose. * Beta-lactam based antibiotics (eg. Ampicillin, Cefazolin, Aztreonam) should be administered within 4 hours of the preceding intraoperative dose. * Vancomycin, Flouroquinolones, Clindamycin, Gentamicin, and Metronidazole should be administered within 8 hours of the preceding intraoperative dose., Recovery (Recovery-Hospital Unit), Indication for (Active or Suspected): Prophylaxis 1104 (Given - Provider: Kaia Martins RN)1932 (Given - Provider: Mallory Lane RN) 0352 (Given - Provider: Wanda Campbell RN) ceFAZolin (ANCEF) 2g in dextrose 5% 50 mL (COMPLETED) 2 g, Intravenous, EVERY 3 HOURS, 1 dose, First dose on Kourtney 02/22/16 at 0630, Administer over 30 Minutes, Redose after 3 hours., Intra-Operative (Intra-Procedure), Indication for (Active or Suspected): Prophylaxis 0733 (Given - Provider: Yfn Raya CRNA) celecoxib (CeleBREX) capsule 200 mg 200 mg, Oral, 2 TIMES DAILY, First dose on Kourtney 02/22/16 at 1100, Until Discontinued, Routine 1100 (Not Given - Provider: Kaia Martins RN - Reason: Order parameters not met - Comment: Pt rec'd preop @ 0630 & 30 mg Toradol intraop @ 0812)2058 (Given - Provider: Wanda Campbell RN) 809 (Given - Provider: Reji Zuniga, JOSE DE JESUS) celecoxib (CeleBREX) capsule 400 mg (COMPLETED) 400 mg, Oral, ONCE, 1 dose, On Kourtney 02/22/16 at 0630, Administer on arrival to Same Day Program, Day of Surgery (Day of Procedure), Routine 0630 (Given - Provider: Reji Ribeiro RN) dexamethasone (DECADRON) tablet 4 mg (COMPLETED) 4 mg, Oral, DAILY, 2 doses, First dose on Kourtney 02/22/16 at 1700, Last dose on Fri02/23/16 at 0900, Routine 1654 (Given - Provider: Mallory Lane RN) 08 (Given - Provider: Reji Zuniga, JOSE DE JESUS) gabapentin (NEURONTIN) capsule 300 mg (COMPLETED) 300 mg, Oral, ONCE, 1 dose, On Kourtney 02/22/16 at 0630, Administer on arrival in Same Day Program, Day of Surgery (Day of Procedure), Routine 0630 (Given - Provider: Reji Ribeiro, JOSE DE JESUS) gabapentin (NEURONTIN) capsule 300 mg(Linked Group 1) 300 mg, Oral, NIGHTLY, First dose on Fri02/24/16 at 2100, Until Discontinued, Routine gabapentin (NEURONTIN) capsule 600 mg(Linked Group 1) 600 mg, Oral, NIGHTLY, 2 doses, First dose on Kourtney 02/22/16 at 2100, Last dose on Fri02/23/16 at 2100, Routine 2057 (Given - Provider: Wanda Campbell RN) HYDROmorphone (DILAUDID) tablet 2 mg (COMPLETED) 2 mg, Oral, ONCE, 1 dose, On Fri02/23/16 at 0100, Routine 0045 (Given - Provid er: Wanda Campbell RN) ketorolac (TORADOL) injection 15 mg (COMPLETED) 15 mg, Intravenous, EVERY 6 HOURS SCHEDULED, 4 doses, First dose on Fri02/22/16 at 1100, Last dose on Fri02/23/16 at 0800, Routine 1343 (Given - Provider: Kaia Martins RN - Comment: Pt rec'd in OR @ 0812)2058 (Given - Provider: Wanda Campbell RN) 351 (Given - Provider: Wanda Campbell RN)0700 (Given - Provider: Reji Zuniga RN) melatonin tablet 3 mg 3 mg, Oral, NIGHTLY, First dose on Fri02/23/16 at 0100, Until Discontinued, Routine 0045 (Given - Provid er: Wanda Campbell RN) multivitamin Kdgo-Vd-CJ-Min (THERAPEUTIC-M) 27-0.4 mg tablet 1 tablet 1 tablet, Oral, DAILY, First dose on Fri02/23/16 at 0900, Until Discontinued 0811 (Given - Provid er: Reji Zuniga RN) pantoprazole (PROTONIX) tablet 20 mg 20 mg, Oral, DAILY, First dose on Fri02/23/16 at 0900, Until Discontinued, DO NOT CRUSH OR OPEN 0811 (Given - Provid er: Reji Zuniga RN) polyethylene glycol (MIRALAX) packet 17 g 17 g, Oral, 2 TIMES DAILY, First dose on Fri02/22/16 at 2100, Until Discontinued, Routine 2058 (Given - Provider: Wanda Campbell RN) 0900 (Not Given - Provider: Reji Zuniga RN - Reason: Patient/family refused) senna-docusate (PERICOLACE) 8.6-50 mg per tablet 2 tablet 2 tablet, Oral, 2 TIMES DAILY, First dose on Fri02/22/16 at 2100, Until Discontinued, Routine 2058 (Given - Provider: Wanda Campbell RN) 0810 (Given - Provider: Reji Zuniga RN) sodium chloride 0.9 % flush 5 mL 5 mL, Intravenous, 2 TIMES DAILY, First dose on Fri02/22/16 at 2100, Until Discontinued, Recovery (Recovery-Hospital Unit), Routine 2106 (Given - Provider: Wanda Campbell RN) 0812 (Given - Provider: Reji Zuniga RN) tranexamic acid (CYKLOKAPRON) 1,293 mg in sodium chloride 0.9% 112.93 mL (COMPLETED) 1,293 mg (15 mg/kg/dose ? 86.2 kg), Intravenous, ONCE, 1 dose, On Kourtney 02/22/16 at 0630, Administer over 30 Minutes, Dilute tranexamic acid dose in 100 mL sodium chloride 0.9% prior to administration. For patients less than or equal to 200 kg infuse over 30 minutes. For patients greater than 200 kg infuse over 60 minutes., Day of Surgery (Day of Procedure) 0733 (New Bag - Provider: Yfn Raya CRNA) Continuous Medication Order 02/21/2016 02/22/2016 02/23/2016 lactated ringers infusion 1,000 mL (CANCELED) 1,000 mL, at 100 mL/hr, Intravenous, CONTINUOUS, Starting on Kourtney 02/22/16 at 0645, Until Kourtney 02/22/16 at 1031, Day of Surgery (Day of Procedure) 0645 (New Bag - Provider: Samina Ribeiro RN) PRN Medication Order 02/21/2016 02/22/2016 02/23/2016 bacitracin injection (CANCELED) ONCE PRN, Starting on Kourtney 02/22/16 at 0811, Until Fri02/23/16 at 1455, Intra-Operative (Intra-Procedure), Routine 0811 (Given - Provider: Dane Chan MD - Comment: Mixed in 3 L NS administered via pulse retail service lead merchandiser.) bisacodyl (DULCOLAX) EC tablet 10 mg 10 mg, Oral, 2 TIMES DAILY PRN, Starting on Kourtney 02/22/16 at 1509, Until Fri02/23/16 at 1455, Constipation, DO NOT CRUSH OR OPEN Administer if needed per patient's routine or if no bowel movement within 48 hours to achieve: 1) One bowel movement at least every 48 hours, AND 2) Without straining. If multiple bowel medications ordered, consider adding bisacodyl if polyethylene glycol (MIRALAX), docusate/senna, or lactulose not sufficient., Routine bisacodyl (DULCOLAX) suppository 10 mg 10 mg, Rectal, DAILY PRN, Starting on Kourtney 02/22/16 at 1509, Until Fri02/23/16 at 1455, Constipation, Administer if needed per patient's routine or if no bowel movement within 48 hours to achieve: 1) One bowel movement at least every 48 hours, AND 2) Without straining. If multiple bowel medications ordered, consider adding bisacodyl if polyethylene glycol (MIRALAX), docusate/senna, or lactulose not sufficient. If patient unable to take PO, may give HI if ordered, Routine BUpivacaine-EPINEPHrine 0.25 %-1:200,000 injection (CANCELED) ONCE PRN, Starting on Kourtney 02/22/16 at 0811, Until Fri02/23/16 at 1455, Intra-Operative (Intra-Procedure), Routine 0944 (Given - Provider: Dane Chan MD - Comment: 50 ml 0.25% Marcaine with 1:200,000 Epi mixed with 50 mcg Clonidine and 30 mg Toradol. Of this mixture, 35 ml was given.) cloNIDine injection (CANCELED) ONCE PRN, Starting on Kourtney 02/22/16 at 0812, Until Fri02/23/16 at 1455, Intra-Operative (Intra-Procedure), Routine 0812 (Given - Provider: Dane Chan MD - Comment: 50 ml 0.25% Marcaine with 1:200,000 Epi mixed with 50 mcg Clonidine and 30 mg Toradol. Of this mixture, 35 ml was given.) diphenhydrAMINE (BENADRYL) capsule 25 mg 25 mg, Oral, EVERY 6 HOURS PRN, Starting on Kourtney 02/22/16 at 1509, Until Fri02/23/16 at 1455, Itching, Routine HYDROmorphone (DILAUDID) tablet 2 mg 2 mg, Oral, EVERY 4 HOURS PRN, Starting on 02/23/16 at 0534, Until Fri02/23/16 at 1455, Pain, For breakthrough pain not relieved by oxycodone, Routine ketorolac (TORADOL) injection (CANCELED) ONCE PRN, Starting on Kourtney 02/22/16 at 0812, Until Fri02/23/16 at 1455, Intra-Operative (Intra-Procedure), Routine 0812 (Given - Provider: Dane Chan MD - Comment: 50 ml 0.25% Marcaine with 1:200,000 Epi mixed with 50 mcg Clonidine and 30 mg Toradol. Of this mixture, 35 ml was given.) lactulose (CHRONULAC) 20 gram/30 mL oral solution 20-40 g 20-40 g (30-60 mL), Oral, DAILY PRN, Starting on Kourtney 02/22/16 at 1509, Until 02/23/16 at 1455, Constipation, Administer if needed per patient's routine or if no bowel movement within 48 hours. Start with 30 mL orally to achieve: 1) One bowel movement at least every 48 hours, AND 2) Without straining. If no bowel movement within 24 hours, may increase to 60 mL orally once daily PRN. If multiple bowel medications ordered, consider adding lactulose first or if polyethylene glycol (MIRALAX) or docusate/senna not sufficient., Routine lidocaine (XYLOCAINE) 10 mg/mL (1 %) injection 3 mg 3 mg (0.3 mL), Subcutaneous, ONCE PRN, 1 dose, Starting on Kourtney 02/22/16 at 1509, Until Fri02/23/16 at 1455, for discomfort with PIV insertion, Recovery (Recovery-Hospital Unit), Routine midazolam (PF) (VERSED) 1 mg/mL injection 1 mg (CANCELED) 1 mg, Intravenous, EVERY 5 MIN PRN, Starting on Kourtney 02/22/16 at 0623, Until Kourtney 02/22/16 at 1129, Sleep, or prior to injection of local anesthetic, Hold for delirium/agitation. (Maximum dose 5 mg)., Day of Surgery (Day of Procedure), Routine 0650 (Given - Provider: Reji Ribeiro RN) ondansetron (ZOFRAN) injection 4 mg(Linked Group 2) 4 mg, Intravenous, EVERY 8 HOURS PRN, Starting on Kourtney 02/22/16 at 1509, Until 02/23/16 at 1455, Nausea, May repeat times one in 30 minutes if ineffective. If multiple antiemetics are ordered, use ondanstron first, Recovery (Recovery-Hospital Unit) ondansetron (ZOFRAN) tablet 4 mg(Linked Group 2) 4 mg, Oral, EVERY 8 HOURS PRN, Starting on Kourtney 02/22/16 at 1509, Until Fri02/23/16 at 1455, Nausea, Vomiting, If multiple antiemetics are ordered, use ondansetron first. PO Preferred. If patient unable to take PO, may give IV if ordered. May repeat times one in 45 minutes if ineffective., Recovery (Recovery-Hospital Unit), Routine oxyCODONE (ROXICODONE) immediate release tablet 10 mg (CANCELED) 10 mg, Oral, EVERY 4 HOURS PRN, Starting on Kourtney 02/22/16 at 1031, Until Fri02/23/16 at 0535, Pain, severe pain (7-10) for pain not relived by tramadol, May give an additional 5 mg in 30 minutes once if pain not relieved., Routine 1248 (Given - Provider: Allegra Mccracken RN)1831 (Given - Provider: April Coats RN)2355 (Given - Provider: Wanda Campbell, JOSE DE JESUS) 0351 (Given - Provider: Wanda Campbell RN) oxyCODONE (ROXICODONE) immediate release tablet 10 mg(Linked Group 3) 10 mg, Oral, EVERY 3 HOURS PRN, Starting on 02/23/16 at 0545, Until Fri02/23/16 at 1455, Pain, severe pain (7-10) for pain not relived by tramadol, May give an additional 5 mg in 30 minutes once if pain not relieved., Routine 0812 (Given - Provid er: Reji Zuniga RN)1125 (Given - Provider: Reji Zuniga RN) oxyCODONE (ROXICODONE) immediate release tablet 5 mg(Linked Group 3) 5 mg, Oral, EVERY 3 HOURS PRN, Starting on Fri02/23/16 at 0545, Until Fri02/23/16 at 1455, Pain, mild to moderate pain (1-6) for pain not relived by tramadol, May give an additional 5 mg in 30 minutes once if pain not relieved., Routine 0812 (See Alternativ e - Provider: Reji Zuniga RN)1125 (See Alternative - Provider: Reji Zuniga RN) sodium chloride 0.9 % flush 5-20 mL 5-20 mL, Intravenous, EVERY 1 MIN PRN, Starting on Kourtney 02/22/16 at 1509, Until Fri02/23/16 at 1455, flush, Flush pertains to all indwelling lines. Flush per protocol found in the job aid using the link provided on this medication record., Recovery (Recovery-Hospital Unit), Routine traMADol (ULTRAM) tablet 50 mg 50 mg, Oral, EVERY 6 HOURS PRN, Starting on Kourtney 02/22/16 at 1031, Until Fri02/23/16 at 1455, Pain, Routine 1543 (Given - Provider: April Coats, RN)2100 (Given - Provider: Wanda Campbell RN) Linked Groups Order Group 1: gabapentin (NEURONTIN) capsule 600 mgJump to med 600 mg, Oral, NIGHTLY, 2 doses, First dose on Kourtney 02/22/16 at 2100, Last dose on Fri02/23/16 at 2100, Routine Followed by gabapentin (NEURONTIN) capsule 300 mgJump to med 300 mg, Oral, NIGHTLY, First dose on 02/24/16 at 2100, Until Discontinued, Routine Group 2: ondansetron (ZOFRAN) tablet 4 mgJump to med 4 mg, Oral, EVERY 8 HOURS PRN, Starting on Kourtney 02/22/16 at 1509, Until Fri02/23/16 at 1455, Nausea, Vomiting, If multiple antiemetics are ordered, use ondansetron first. PO Preferred. If patient unable to take PO, may give IV if ordered. May repeat times one in 45 minutes if ineffective., Recovery (Recovery-Hospital Unit), Routine Or ondansetron (ZOFRAN) injection 4 mgJump to med 4 mg, Intravenous, EVERY 8 HOURS PRN, Starting on Kourtney 02/22/16 at 1509, Until Fri02/23/16 at 1455, Nausea, May repeat times one in 30 minutes if ineffective. If multiple antiemetics are ordered, use ondanstron first, Recovery (Recovery- Hospital Unit) Group 3: oxyCODONE (ROXICODONE) immediate release tablet 5 mgJump to med 5 mg, Oral, EVERY 3 HOURS PRN, Starting on 02/23/16 at 0545, Until Fri02/23/16 at 1455, Pain, mild to moderate pain (1-6) for pain not relived by tramadol, May give an additional 5 mg in 30 minutes once if pain not relieved., Routine Or oxyCODONE (ROXICODONE) immediate release tablet 10 mgJump to med 10 mg, Oral, EVERY 3 HOURS PRN, Starting on Fri02/23/16 at 0545, Until Fri02/23/16 at 1455, Pain, severe pain (7-10) for pain not relived by tramadol, May give an additional 5 mg in 30 minutes once if pain not relieved., Routine documented in this encounter Care Teams Provider Enrollment Specialist Relationship Specialty Start Date End Date Jeff Lane MD [facility] [address] [place] [address] PCP - General General Internal Medicine 11/07/1509/16 documented as of this encounter
--- OUTSIDE RECORDS SUMMARY | 2024-03-18 15:00 | XMS_ITS | Encounter Summary ---
Author Organization [facility] [place] [address] Care Team Providers Care Researcher Name Role Phone Jeff Sherman MD Primary Care Provider [phone] Encounter Details Date Type Department Care Team (Latest Contact Info) Description 11/13/2015 3:41 PM EDT - 11/13/2015 11:59 PM EDT Hospital Encounter XRay at [address] [place] [address] Trever Henderson MD [facility] [place] [address] Post-traumatic osteoarthritis of right knee; Primary osteoarthritis of right knee Discharge Disposition: Home Social History Tobacco Use Types Packs/Day Years Used Date Smoking Tobacco: Some Days Cigarettes Smokeless Tobacco: Current Chew Sex and Gender Information Value Date Recorded Sex Assigned at Not on file Gender Identity Not on file Sexual Orientation Not on file documented as of this encounter Plan of Treatment Not on file documented as of this encounter Procedures Procedure Name Priority Date/Time Associated Diagnosis Comments XR JOINT TEAM STANDING ALIGNMENT AP LAT SCHUSS SKYLINE BILAT Routine 11/13/2015 3:58 PM EDT Post-traumatic osteoarthritis of right knee Primary osteoarthritis of right knee documented in this encounter Results * XR Joint Team Standing Alignment AP Lat Schuss [place] Bilateral (11/13/2015 3:58 PM EDT) Anatomical Region Laterality Modality Bilateral Digital Radiogra phy Impressions 11/13/2015 4:39 PM EDT 1. Right knee: ??No recent or acute fracture or dislocation is noted. Moderate size joint effusion is present. Severe osteoarthritis is identified with preferential narrowing of medial tibiofemoral and patellofemoral compartments of the knee similar to the prior examination. 2. Left knee: No recent or acute fracture or dislocation is noted. Small joint effusion is present. Severe osteoarthritis is identified with preferential narrowing of medial tibiofemoral and patellofemoral compartments of the knee similar to the prior examination. 3. 34 mm of medial deviation of the weightbearing axis of the right lower extremity and 29 mm medial deviation of the weightbearing axis of the left lower extremity. Narrative 11/13/2015 4:39 PM EDT EXAMINATION: XR JOINT TEAM STANDING ALIGNMENT AP LAT SCHUSS SKYLINE BILATERAL CLINICAL HISTORY: 4 + views please include alignment view TECHNIQUE: Separate images of the pelvis, knees and feet were acquired in the AP projection with the patient standing. These images were stitched together to form a composite image of the pelvis and legs allowing for evaluation of lower extremity alignment in the weight bearing position. Four additional views of the knee were taken. Bilateral lateral, AP standing, axial and PA Charles radiographs. COMPARISON: September 25, 2015. FINDINGS: Right knee: ??No recent or acute fracture or dislocation is noted. Moderate size joint effusion is present. Severe osteoarthritis is identified with preferential narrowing of medial tibiofemoral and patellofemoral compartments of the knee similar to the prior examination. Bony spurring is identified along the patella. Left knee: No recent or acute fracture or dislocation is noted. Small joint effusion is present. Severe osteoarthritis is identified with preferential narrowing of medial tibiofemoral and patellofemoral compartments of the knee similar to the prior examination. Bony spurring is identified along the patella. Alignment lower extremities: There is 34 mm of medial deviation of the weightbearing axis of the right lower extremity and 29 mm medial deviation of the weightbearing axis of the left lower extremity. Procedure Note Ruben Ryan MD - 11/13/2015 EXAMINATION: XR JOINT TEAM STANDING ALIGNMENT AP LAT SCHUSS SKYLINEBILATERAL CLINICAL HISTORY: 4 + views please include alignment view TECHNIQUE: Separate images of the pelvis, knees and feet were acquired inthe AP projection with the patient standing. These images were stitched togetherto form a composite image of the pelvis and legs allowing for evaluation oflower extremity alignment in the weight bearing position. Four additional viewsof the knee were taken. Bilateral lateral, AP standing, axial and PA Charles radiographs. COMPARISON: September 25, 2015. FINDINGS: Right knee: No recent or acute fracture or dislocation is noted. Moderatesize joint effusion is present. Severe osteoarthritis is identified withpreferential narrowing of medial tibiofemoral and patellofemoral compartments of theknee similar to the prior examination. Bony spurring is identified along thepatella. Left knee: No recent or acute fracture or dislocation is noted. Smalljoint effusion is present. Severe osteoarthritis is identified withpreferential narrowing of medial tibiofemoral and patellofemoral compartments of theknee similar to the prior examination. Bony spurring is identified along thepatella. Alignment lower extremities: There is 34 mm of medial deviation of the weightbearing axis of the right lower extremity and 29 mm medial deviationof the weightbearing axis of the left lower extremity. IMPRESSION 1. Right knee: No recent or acute fracture or dislocation is noted.Moderate size joint effusion is present. Severe osteoarthritis is identified with preferential narrowing of medial tibiofemoral and patellofemoralcompartments of the knee similar to the prior examination. 2. Left knee: No recent or acute fracture or dislocation is noted. Smalljoint effusion is present. Severe osteoarthritis is identified withpreferential narrowing of medial tibiofemoral and patellofemoral compartments of theknee similar to the prior examination. 3. 34 mm of medial deviation of the weightbearing axis of the rightlower extremity and 29 mm medial deviation of the weightbearing axis of the leftlower extremity. Trever Henderson MD IMG DX ORDERABLES documented in this encounter Visit Diagnoses Diagnosis Post-traumatic osteoarthritis of right knee Secondary localized osteoarthrosis, lower leg Primary osteoarthritis of right knee Primary localized osteoarthrosis, lower leg documented in this encounter Care Teams Researcher Relationship Specialty Start Date End Date Jeff Sherman MD [facility] [address] [place] [address] PCP - General General Internal Medicine 11/07/1509/16 documented as of this encounter
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
--- OUTSIDE RECORDS SUMMARY | 2024-03-18 15:00 | XMS_ITS | Encounter Summary ---
[place] [address] Care Team Providers Care [employer] Driver Name Role Phone Jeff Sherman MD Primary Care Provider [phone] Encounter Details Date Type Department Care Team (Late st Contact Info) Description 12/30/2015 [place] [address] Rufus-Janis Birch Social History Tobacco Use Types Packs/Day Years Used Date Smoking Tobacco: Some Days Cigarettes Smokeless Tobacco: Current Chew Alcohol Use Standard Drinks/Week Comments No 0 (1 standard drink = 0.6 oz pur e alcohol) Sex and Gender Information Value Date Recorded Sex Assigned at Not on file Gender Identity Not on file Sexual Orientation Not on file documented as of this encounter Miscellaneous Notes * Telephone Encounter - Janis Hooper - 12/30/2015 11:26 AM EDT Pt was sent packet of information cc discharge planning post-op from a total joint replacement. Pt was provided with an introductory letter. Pt was provided with information about OCM. Pt was provided with list of VNA and SNF in his area. Pt was requested to select a VNA, 3 SNF he would be willing to go to, where he would like to go for OP PT and provide that information to the human resources records clerk at pre-op phone call. Pt was encouraged to call with any questions. Pt was sent an ADV DIR. Pt was sent [place] [facility] application. documented in this encounter Plan of Treatment Not on file documented as of this encounter Visit Diagnoses Not on filedocumented in this encounter Care Teams [employer] Driver Relationship Specialty Start Date End Date Jeff Sherman MD [facility] [address] [place] [address] PCP - General General Internal Medicine 11/07/1509/16 documented as of this encounter
--- OUTSIDE RECORDS SUMMARY | 2024-03-18 15:00 | XMS_ITS | Encounter Summary ---
[place] [address] Care Team Providers Care [employer] Foreman Name Role Phone Jeff Sherman MD Primary Care Provider [phone] Reason for Visit * Reason Comments Right Knee Pain Case Req 03/07/16 R TKA Encounter Details Date Type Department Care Team (Latest Contact Info) Description 02/19/2016 1:20 PM EDT Office [place] [address] Armando Espinosa MD [facility] [place] [address] Preop examination; Post-traumatic osteoarthritis of right knee; Cigarette smoker Social History Tobacco Use Types [...] Sign Reading Time Taken Comments Blood Pressure 128/77 02/19/2016 2:35 PM EDT Pulse 57 02/19/2016 2:35 PM EDT Temperature - - Respiratory Rate - - Oxygen Saturation 99% 02/19/2016 2:35 PM EDT Inhaled Oxygen Concentration - - Weight 83.2 kg (183 lb 6.4 oz) 02/19/2016 2:35 P M EDT verbal Height 180.3 cm (5' 11) 02/19/2016 2:35 PM EDT verbal Body Mass Index 25.58 02/19/2016 2:35 PM EDT documented in this encounter H&P Notes * Armando Espinosa MD - 02/19/2016 1:20 PM EDT Images from the original note were not included. CC: Yvan Maddox is a 41 y.o. male with the following problems and medications that is being seen in the clinic for consultation at the request of his surgeon Dr. Dane Fleming for preoperative risk stratification and management recommendations in anticipation of right total knee arthroplasty for symptomatic post traumatic arthritis. HPI - Pain - Location - Right knee Quality - aching, Onset - since injury on trampoline Duration - several decades Intensity - moderate to severe, Aggravating factors - standing, walking, stepping, bending, Alleviating factors - NSAID, rest, help a little but the pain has continued and become disabling. Patient Active Problem List Diagnosis Code ??? Post-traumatic osteoarthritis of right knee M17.31 ??? History of nasal surgery Z98.890 ??? Knee pain M25.569 Current Outpatient Prescriptions Medication Sig Dispense Refill ??? diphenhydrAMINE (BENADRYL) 25 mg Capsule Take 25 mg by mouth every 6 hours as needed for Itching. ??? meloxicam (MOBIC) 15 mg Tablet Take 1 tablet by mouth daily. (Patient not taking: Reported on 02/19/2016) 60 tablet 1 No current facility-administered medications for this visit. [...] Marijuana ??? Sexual activity: Not on file Family History Problem Relation Age of Onset ??? Diabetes Father Review of Systems: Review of Systems Constitutional: Negative for chills, fatigue and fever. HENT: Negative for mouth sores and nosebleeds. Had nose surgery for DNS Eyes: Negative for photophobia and visual disturbance. Respiratory: Negative for cough, shortness of breath and stridor. Has watery eyes and chest tightness with exposure to allergens. Cardiovascular: Negative for chest pain, palpitations and [...] Negative for weakness, light-headedness and headaches. Right leg below the knee goes numb sometimes. Also has calf cramps on occasion. Hematological: Negative for adenopathy. Does not bruise/bleed easily. Psychiatric/Behavioral: Negative for confusion, decreased concentration and dysphoric mood. Allergies: Allergies Allergen Reactions ??? Hay [Grass Pollen-[place], Standard] Hives Physical Exam: Last Set of Vitals and Range over past 24 hours: Last value Range last 24 hrs Temperature Temp: -- Heart Rate Heart Rate: 57 Heart Rate: [57-81] Blood Pressure BP: 128/77 BP: (128)/(77) Respiratory Rate Resp: -- SpO2 SpO2: 99 % SpO2: [98 %-99 %] Body mass index is 25.58 kg/(m^2). Height: 180.3 cm (5' 11) (verbal) Physical Exam Constitutional: He is oriented to person, place, and time. He appears well- developed. No distress. HENT: Head: Normocephalic and atraumatic. Eyes: Conjunctivae are normal. No scleral icterus. Neck: Neck supple. Cardiovascular: Normal rate, regular rhythm, normal heart [...] There is no rebound. Musculoskeletal: He exhibits deformity. He exhibits no edema. Right knee crepitus with ROM, Quad strength is 5/5. Extension is 5 shy of full, he has bowed legs, he has flexion to 105. Neurological: He is alert and oriented to person, place, and time. Skin: Skin is warm and dry. He is not diaphoretic. Psychiatric: He has a normal mood and affect. His behavior is normal. Judgment and thought content normal. Lab Results Component Value Date WBC 10.8 (H) 02/19/2016 RBC 5.00 02/19/2016 HGB 14.8 02/19/2016 HCT 45.4 02/19/2016 MCV 90.8 02/19/2016 MCH 29.6 02/19/2016 MCHC 32.6 02/19/2016 PLATELET 290 02/19/2016 RDWCV 13.2 02/19/2016 Lab Results Component Value Date NA 142 02/19/2016 K 4.6 02/19/2016 CL 104 02/19/2016 CO2 25 02/19/2016 BUN 8 (L) 02/19/2016 CREATININE 0.98 02/19/2016 GLUCOSE 91 02/19/2016 CALCIUM 9.4 02/19/2016 Estimated Creatinine Clearance: 105.7 mL/min (based on Cr of 0.98). EKG (image reviewed): Sinus bradycardia Otherwise normal ECG No previous ECGs available Confirmed by MD GOLDEN ALAN ([id number]) on 02/19/2016 1:40:33 PM A/P 1. Preop examination 2. Post-traumatic osteoarthritis of right knee 3. Cigarette smoker He elects to proceed with right knee replacement so that he can have pain relief and remain active at work and with his kids. He was instructed to abstain completely from smoking preoperatively and through his recovery after surgery. Increased risk of complications including infection associated with smoking was explained as well as increased complexity of surgery secondary to his deformity and post traumatic nature of his knee arthritis was explained. 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 Mild elevation in WBC is non specific and can be seen in cigarette smokers. ARISCAT/CANET Score - estimates the risk of postoperative pulmonary complications as being low ~3.5%. STOP BANG Score - low risk for TUAN. Per the ACS NSQIP calculator I estimated the following. 25 of this 40 minute encounter was spent incounseling him with his present. Discussed RLS and association with TUAN, noted some response of symptoms to iron supplementation but he has normal H/H today although it could be spurious in smoking. Noted role of TUAN in increasing complications associated with arthroplasty. He has no witnessedapnea and no daytime somnolence and so his risk for TUAN per STOP BANG is low. Reviewed perioperative use of meloxicam and he will avoid its use in the 5 days before surgery. RECCO: Standard TKA care. Continue Benadryl at HS for his allergies and RLS. documented in this encounter Plan of Treatment Not on file documented as of this encounter Visit Diagnoses Diagnosis Preop examination Preoperative examination, unspecified Post-traumatic osteoarthritis of right knee Secondary localized osteoarthrosis, lower leg Cigarette smoker Tobacco use disorder documented in this encounter Care Teams [employer] Foreman Relationship Specialty Start Date End Date Jeff Sherman MD [facility] [address] [place] [address] PCP - General General Internal Medicine 11/07/1509/16 documented as of this encounter
--- OUTSIDE RECORDS SUMMARY | 2024-03-18 15:00 | XMS_ITS | Encounter Summary ---
[place] [address] Care Team Providers Care Metallurgical Analyst Name Role Phone Jeff Sherman MD Primary Care Provider [phone] Reason for Visit * Reason Comments Right Knee Pain Encounter Details Date Type Department Care Team (Latest Contact Info) Description 12/12/2015 10:10 AM EDT Office [place] [address] Dane Fleming MD [facility] DR [place] [address] Post-traumatic osteoarthritis of right knee Social History Tobacco [...] Sign Reading Time Taken Comments Blood Pressure 113/73 12/12/2015 10:14 AM EDT Pulse 66 12/12/2015 10:14 AM EDT Temperature - - Respiratory Rate - - Oxygen Saturation - - Inhaled Oxygen Concentration - - Weight 86.2 kg (190 lb) 12/12/2015 10:14 AM EDT Height 180.3 cm (5' 11) 12/12/2015 10:14 AM EDT Body Mass Index 26.5 12/12/2015 10:14 AM EDT documented in this encounter Progress Notes * Jacky Chatman MD - 12/12/2015 10:10 AM EDT CHIEF COMPLAINT: Right knee pain. INTERIM HISTORY: Mr. Maddox comes in today for routine scheduled followup in regards to his right knee in the setting of posttraumatic arthritis. He reports that the Synvisc he received was partially helpful in relieving his symptoms; however, he still has significant knee pain. 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 He has had no fevers, chills, or night sweats, and is here today because he feels as if he has exhausted all nonoperative treatment options. He would like to discuss a total knee arthroplasty. Medications, allergies, and surgeries are reviewed in the eD-H. Please see the physical examination, radiography evaluation, and survey data at the end of this note. 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 Dr. Fleming and Sherri both engaged in an extensive discussion with the patient regarding management options and the risks of total knee arthroplasty. We specifically discussed pain, bleeding, infection, pain with kneeling, failure of components, loosening components, and nearly 100% likelihood of needing a revision surgery, if not more than 1, within his lifetime. We also discussed his risks of surgical intervention and the fact that we could not guarantee any specific outcome. Despite these risks and lack of guarantee, the patient indicated a strong desire to proceed with surgical intervention. He continues to smoke tobacco and is interested in quitting. He will work on quitting and we will plan to schedule his surgery at least 2 months in advance. He would have to be off of cigarettes for at least 6 weeks prior to proceeding to the OR. If he comes back for follow up and it has been less than 1 month since quitting smoking, we will cancel his case, and postpone it. We would like him to meet with Dr. Espinosa close to the surgical date. We will book the case today and have the surgical schedulers call him. The patient was seen and examined with Dr. Fleming. PHYSICAL EXAM: Constitution: Patient sits in the clinic today in no apparent distress. The patient is alert and oriented x 3. Appearance is age-appropriate, affect is similarly appropriate. Head, ears, eyes, nose, throat: grossly normal. Anicteric, no apparant lymphadenopathy. Chest: Normal chest expansion with re gular inspiratory effort. No audible wheezing with regularly inspiratory effort. Cardiac: regular rate and rhythm by peripheral palpation. I have made the following determinations: Knee Exam: Right Prior surgery on this joint: No Gait Abnormality: Antalgic Knee ROM: Extension:5 Flexion: 110 Alignment: 0-4 degrees Varus Stability: A/P Translation 5-10mm. Varus (lateral stability) <5mm Valgus (medial stability) <5mm Extension La degrees or less Patella Tracking: Normal Skin Integrity: Normal Pulses Palpable: Right PT: Yes Right DP:Yes Motor/Sensory: Distal Motor: Normal Distal Sensory: Normal Quadriceps Strength: 5 RADIOGRAPHIC ANALYSIS: Together, we reviewed his radiographs obtained previously which demonstrate degenerative joint disease. Kellgren-Kobe Grade: 4= large osteophytes, marked narrowing, obvious deformity [0= normal; 1=minimal ; 2= some osteophytes , some narrowing ; 3= moderate osteophytes, significantnarrowing, mild deformity; 4= large osteophytes, marked narrowing, obvious deformity] Questionnaire Responses: General Health, Prior Treatments, PreExisting Condition, Health Habits, About You 12/12/2015 PROMIS-10 General Health Very Good PROMIS-10 Quality of Life Very Good PROMIS-10 Physical Health Good PROMIS-10 Mental Health Very Good PROMIS-10 Social Activity Very Good PROMIS-10 Everyday Activities Moderately PROMIS-10 Pain 8 PROMIS-10 Fatigue Moderate PROMIS-10 Social Roles Good PROMIS-10 Anxious or Depressed Never PROMIS PHYSICAL SCORE (range 16-68) 37.4 PROMIS MENTAL SCORE (range 21-68) 56 Treatments Tried Brace, Walking aids (e.g.cane, walker), Physical therapy, Acetaminophen (e.g. Tylenol), Injection of steroids or cortisone Alzheimers or dementia - Cirrohosis or liver disease - HIV/AIDS - Pain in more than one joint in legs - Back or neck pain - Heart attack - Heart failure - Unclog/bypass leg arteries - Stroke, blood clot, TIA - Asthma - Emphysema, chronic bronchities, or COPD - Stomach ulcers/peptic ulcer disease - Diabetes - Poor kidney function - Rheumatic condtions - Take medications for rheumatic conditions - Cancer - Weight (lbs) - Height (feet) - Height (Inches) - BMI - Ever used tobacco products - Tobacco frequency - WHO - Tobacco Advice - Ever used alcoholic beverages - Alcohol frequency - WHO - Alcohol Advice - Live Alone - Marital situation - Schooling - Combined Household Income - # People Supported - Sinhala, , - Race - Currently working - Current job situation - [employer] Future Fleet Response 12/12/2015 KOOS-PS Scores 51.2 No flowsheet data found. * Dane Fleming MD - 12/12/2015 10:10 AM EDT I saw and evaluated the patient on the date of Dr. Chatman's note. I have reviewed and agree with the findings and the plan of care as outlined in their note, with the following additions or alterations: 40-year-old gentleman with significant right knee arthritis. He has tried a steroid and Synvisc injections. He has significant pain with standing, walking, and working. He would like to consider total knee arthroplasty. We discussed the arthritis ladder and looked at his x-rays together. We discussed the purely elective nature of total knee arthroplasty, and the likelihood that he would need revision in his lifetime. He currently smokes less than a pack of cigarettes per day and uses chewing tobacco. I stressed the fact that he would need to be completely tobacco free for 1-2 months prior to any sort of arthroplasty. Given his tricompartmental arthritis, I do not think he would be a candidate for uni-. He very much would like to pursue total knee arthroplasty. I explained the risks and benefits, including the risk of infection and the multiple surgeries that would be involved should he become infected, his high risk of revision, and the fact that kneeling pain may not be resolved. He would like to pursue this sometime in February or March. He feels that he can quit with tobacco immediately and declined cessation help. We will place orders today and have him see Dr. Harriet nichols prior to surgery. I was clear that if he is not tobacco free at the time of our meeting, we would need to cancel the surgery. Dane Fleming MD, MS Orthopaedic Surgery Attending documented in this encounter Plan of Treatment Not on file documented as of this encounter Procedures Procedure Name Priority Date/Time Associated Diagnosis Comments TOTAL KNEE ARTHROPLASTY Routine 12/12/19 16 11:04 AM EDT documented in this encounter Results * XR Chest PA & Lateral (Generic) (02/19/2016 2:00 PM EDT) Anatomical Region Laterality Modality Chest N/A Digital Radiogra phy Impressions 02/19/2016 2:16 PM EDT No significant abnormality. Narrative 02/19/2016 2:16 PM EDT EXAMINATION: XR CHEST PA AND LATERAL (GENERIC) CLINICAL HISTORY: Preoperative TECHNIQUE: Standing PA and lateral chest COMPARISON: None FINDINGS: The lungs are clear. Cardial mediastinal silhouette and alejandra appear normal. No pleural effusion or other acute finding is seen. Incidentally noted are a few mild age indeterminate compression fractures in the midthoracic spine. Procedure Note Robert Gillespie MD - 02/19/2016 EXAMINATION: XR CHEST PA AND LATERAL (GENERIC) CLINICAL HISTORY: Preoperative TECHNIQUE: Standing PA and lateral chest COMPARISON: None FINDINGS: The lungs are clear. Cardial mediastinal silhouette and alejandra appearnormal. No pleural effusion or other acute finding is seen. Incidentally noted are afew mild age indeterminate compression fractures in the midthoracic spine. IMPRESSION No significant abnormality. Dane Fleming MD IMG DX ORDERABLES * EKG 12 Lead (02/19/2016 1:04 PM EDT) Ventricular rate 56 BPM MUSE SYSTEM Atrial Rate 56 BPM MUSE SYSTEM P-R Interval 132 ms MUSE SYSTEM QRS Duration 86 ms MUSE SYSTEM Q-T Interval 418 ms MUSE SYSTEM QTC Calculated (Bezet) 403 ms MUSE SYSTEM Calculated P Cohagen 42 degrees MUSE SYSTEM Calculated R [place] 36 degrees MUSE SYSTEM Calculated T Coh[place] 52 degrees MUSE SYSTEM INTERPRETATION Sinus bradycardia Otherwise normal ECG No previous ECGs available Confirmed by MD GOLDEN ALAN ([id number]) on 02/19/2016 1:40:33 PM MUSE SYSTEM 02/19/2016 1:04 PM EDT 02/19/2016 1:40 PM EDT Dane Fleming MD ECG ORDERABLES MUSE SYSTEM * (ABNORMAL) Basic Metabolic Panel (non-fasting) (02/19/2016 1:00 PM EDT) Glucose 91 65 - 199 mg/dL [facility] Comment:Diabetes: >=200 mg/d L plus symptoms Blood Urea Nitrogen 8(L) 10 - 20 mg/dL [facility] Creatinine 0.98 0.80 - 1.50 mg/dL [facility] Comment: Please note that the pediatric reference intervals supplied above were not validated at [facility]. Results from pediatric patients should be interpreted in conjunction to the patient's age, height and muscle mass. Sodium 142 135 - 145 mmol/L [facility] Potassium 4.6 3.5 - 5.0 mmol/L [facility] Comment: Please note: ??Patients with WBC >100,000 may have falsely elevated Potassium levels. ??For accurate Potassium quantification in these patients send serum separator tube (gold top) for subsequent determinations. ??Contact the Clinical Chemistry Laboratory if there are any questions. Chloride 104 98 - 107 mmol/L [facility] Carbon Dioxide 25 22 - 31 mmol/L [facility] Anion Gap 13 5 - 15 mmol/L [facility] Calcium 9.4 8.5 - 10.5 mg/dL [facility] Est Glomerular Filtration Rate >60 >=60 [facility] Comment: This estimated GFR (eGFR) [...] the following links into your internet browser. [email or web address] Blood specimen (specimen) 02/19/2016 1:00 PM EDT 02/19/2016 1:36 PM EDT Narrative Resulting Agency Comment Spec In Lab Dane Fleming MD CHEMISTRY ORDERABLES [facility] [place] [id number] documented in this encounter Visit Diagnoses Diagnosis Post-traumatic osteoarthritis of right knee Secondary localized osteoarthrosis, lower leg Post-traumatic osteoarthritis of right knee Secondary localized osteoarthrosis, lower leg documented in this encounter Care Teams Metallurgical Analyst Relationship Specialty Start Date End Date Jeff Sherman MD [facility] [address] [place] [address] PCP - General General Internal Medicine 11/07/1509/16 documented as of this encounter
--- OUTSIDE RECORDS SUMMARY | 2024-03-18 15:00 | XMS_ITS | Encounter Summary ---
Author Organization [facility] [place] [address] Care Team Providers Care Escrow Representative Name Role Phone Ayad Roque MD Primary Care Provider [phone] Encounter Details Date Type Department Care Team (Late st Contact Info) Description 11/11/2014 - 11/11/2014 11:59 PM EDT Hospital Encounter Radiology Library at [facility] [place] [address] [facility] Discharge Disposition: Home Social History Tobacco Use Types Packs/Day Years Used Date Smoking Tobacco: Never Assessed Sex and Gender Information Value Date Recorded Sex Assigned at Not on file Gender Identity Not on file Sexual Orientation Not on file documented as of this encounter Plan of Treatment Not on file documented as of this encounter Procedures Procedure Name Priority Date/Time Associated Diagnosis Comments FILM LIBRARY STORAGE ONLY DX KNEE Routine 11/11/2014 12:00 AM EDT Pain documented in this encounter Results * Film Library- Storage only DX Knee (11/11/2014 12:00 AM EDT) Narrative [facility] - 11/08/2015 11:30 AM EDT This exam is for storage only and is auto-finalizing. Dr [facility] FILM LIBRARY ORD ERABLES DH [place], [place] documented in this encounter Visit Diagnoses Diagnosis Pain Generalized pain documented in this encounter Care Teams Escrow Representative Relationship Specialty Start Date End Date Ayad Roque MD [address] [place] [address] PCP - General 04/10/10 11/06/15 documented as of this encounter
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
--- OUTSIDE RECORDS SUMMARY | 2024-03-18 15:00 | XMS_ITS | Encounter Summary ---
Author Organization [facility] [place] [address] Care Team Providers Care Lumber Puller Name Role Phone Jeff Sherman MD Primary Care Provider [phone] Encounter Details Date Type Department Care Team (Latest Contact Info) Description 02/19/2016 1:14 PM EDT - 02/19/2016 1:55 PM EDT Hospital Encounter XRay at [address] [place] [address] Dane Fleming MD [facility] [place] [address] Post-traumatic osteoarthritis of right knee Discharge Disposition: Home [...] Associated Diagnosis Comments XR KNEE STANDING ALIGNMENT Routine 02/19/2016 2:05 PM EDT Post-traumatic osteoarthritis of right knee documented in this encounter Results * XR Knee Standing Alignment (Generic) (02/19/2016 2:05 PM EDT) Anatomical Region Laterality Modality N/A Digital Radiogra phy Impressions 02/19/2016 4:14 PM EDT Persistent medial deviation of bilateral weightbearing axes. Narrative 02/19/2016 4:14 PM EDT EXAMINATION: XR KNEE STANDING ALIGNMENT (GENERIC) CLINICAL HISTORY: History of knee replacement TECHNIQUE: Separate images of the pelvis, knees and feet were acquired in the AP projection with the patient standing. These images were stitched together to form a composite image of the pelvis and legs allowing for evaluation of lower extremity alignment in the weight bearing position. ? COMPARISON: November 13, 2015 FINDINGS: Medial deviation of both weightbearing axes, by 4.1 cm right and 2.1 cm left. Procedure Note Samanta Meza MD - 02/19/2016 EXAMINATION: XR KNEE STANDING ALIGNMENT (GENERIC) CLINICAL HISTORY: History of knee replacement TECHNIQUE: Separate images of the pelvis, knees and feet were acquired inthe AP projection with the patient standing. These images were stitched togetherto form a composite image of the pelvis and legs allowing for evaluation oflower extremity alignment in the weight bearing position. COMPARISON: November 13, 2015 FINDINGS: Medial deviation of both weightbearing axes, by 4.1 cm right and 2.1 cmleft. IMPRESSION Persistent medial deviation of bilateral weightbearing axes. Dane Fleming MD IMG DX ORDERABLES documented in this encounter Visit Diagnoses Diagnosis Post-traumatic osteoarthritis of right knee Secondary localized osteoarthrosis, lower leg documented in this encounter Care Teams Lumber Puller Relationship Specialty Start Date End Date Jeff Sherman MD [facility] [address] [place] [address] PCP - General General Internal Medicine 11/07/1509/16 documented as of this encounter
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
--- OUTSIDE RECORDS SUMMARY | 2024-03-18 15:00 | XMS_ITS | Encounter Summary ---
Author Organization [facility] Address [address] [place] [address] Care Team Providers Care Outreach Clinician Name Role Phone Teresa Field Primary Care Provider [phone] Reason for Visit * Reason Onset Date Comments Appointment Related 07/11/2021 Encounter Details Date Type Department Care Team (Late st Contact Info) Description 07/11/2021 Telephone [facility] Acute Care Surgery - [facility] [address], [place] [id number] Trauma Surgery, Ep5 Acs MD Appointment Related Social History Tobacco Use Types Packs/Day Years [...] encounter Miscellaneous Notes * Telephone Encounter - Denisha Sam - 07/11/2021 1501 EST Patient calling to cancel tomorrows appointment as they don't need it, all is healing well Thanks for update, visit cancelled ~ GABRIELLA PARRA, RN documented in this encounter Plan of Treatment Not on file documented as of this encounter Visit Diagnoses Not on filedocumented in this encounter Care Teams Outreach Clinician Relationship Specialty Start Date End Date Teresa Field FNP [address] [place], [place] [id number] PCP - General 06/28/21 documented as of this encounter
--- OUTSIDE RECORDS SUMMARY | 2024-03-18 15:00 | XMS_ITS | Encounter Summary ---
Author Organization [facility] [place] [address] Care Team Providers Care Backer Up Name Role Phone Ayad Roque MD Primary Care Provider [phone] Encounter Details Date Type Department Care Team (Late st Contact Info) Description 09/25/2015 - 09/25/2015 11:59 PM EDT Hospital Encounter Radiology Library at [facility] [place] [address] [facility] Discharge Disposition: Home Social History [...] FILM LIBRARY STORAGE ONLY DX KNEE Routine 09/25/2015 12:00 AM EDT Pain documented in this encounter Results * Film Library- Storage only DX Knee (09/25/2015 12:00 AM EDT) Narrative [facility] - 11/08/2015 11:28 AM EDT This exam is for storage only and is auto-finalizing. Dr Lawson [facility] FILM LIBRARY ORD ERABLES DH [place], [place] documented in this encounter Visit Diagnoses Diagnosis Pain Generalized pain documented in this encounter Care Teams Backer Up Relationship Specialty Start Date End Date Ayad Roque MD [address] [place] [address] PCP - General 04/10/10 11/06/15 documented as of this encounter
--- OUTSIDE RECORDS SUMMARY | 2024-03-18 15:00 | XMS_ITS | Encounter Summary ---
[place] [address] Care Team Providers Care 1St Pressman On Web Press Name Role Phone Jeff Sherman MD Primary Care Provider [phone] Encounter Details Date Type Department Care Team (Late st Contact Info) Description 02/15/2016 Telephone [place] [address] Dane Fleming MD [facility] [place] [address] Social History Tobacco Use Types Packs/Day Years [...] encounter Miscellaneous Notes * Telephone Encounter - Nesha Rivers H - 02/15/2016 1:42 PM EDT I left a message for Yvan to see if he would like to move his surgery up with Dr. Fleming. He is scheduled for surgery on 03/07 but may be interested in going on 02/21. The patient needs to check his schedule and will call us back. He understands that this spot may not be available when he calls back. documented in this encounter Plan of Treatment Not on file documented as of this encounter Visit Diagnoses Not on filedocumented in this encounter Care Teams 1St [employer] Relationship Specialty Start Date End Date Jeff Sherman MD [facility] [address] [place] [address] PCP - General General Internal Medicine 11/07/1509/16 documented as of this encounter
--- OUTSIDE RECORDS SUMMARY | 2024-03-18 15:00 | XMS_ITS | Encounter Summary ---
Author Organization [facility] Address [address] [place] [address] Care Team Providers Care Tree Trimming Line Technician Name Role Phone Unknown, Provider Primary Care Provider Teresa Foley Primary Care Provider [phone] Encounter Details Date Type Department Care Team (Late st Contact Info) Description 05/17/2019 Lab Requisition [facility] Pathology & Laboratory Medicine - [address] [address] Unknown, Provider, Social History Tobacco Use Types Packs/Day Years Used Date Smoking Tobacco: Never Assessed Sex and Gender Information Value Date Recorded Sex Assigned at Not on file Gender Identity Male 06/28/2021 11:03 EST Sexual Orientation Not on file documented as of this encounter Plan of Treatment Not on file documented as of this encounter Procedures Procedure Name Priority Date/Time Associated Diagnosis Comments ANTI NUCLEAR AB (JULIAN), IFA Routine 05/16/2019 15:15 EST documented in this encounter Results * ANTI NUCLEAR AB (JULIAN), IFA (05/16/2019 15:15 EST) JULIAN Interpretation Negative Negative 2018 14:39 EST [facility] Blood VENOUS BLOOD / Unknown Venipuncture / Unknown 05/16/2019 15:15 EST 05/17/2019 15:29 EST Narrative [facility] - 05/18/2019 14:39 EST Results were obtained with the VestecVA NOVA Lite HEp-2 JULIAN Kit by indirect immunofluorescence. Provider Unknown IMMUNOLOGY AND SEROL OGY ORDERABLES [facility] [address] [place] [address] documented in this encounter Visit Diagnoses Not on filedocumented in this encounter Care Teams Tree Trimming Line Technician Relationship Specialty Start Date End Date Unknown, Provider, PCP - General 08/27/15 06/27/21 Teresa Field FNP [facility] [address] [place], [place] [id number] PCP - General 06/28/21 documented as of this encounter
--- OUTSIDE RECORDS SUMMARY | 2024-03-18 15:00 | XMS_ITS | Encounter Summary ---
[place] [address] Care Team Providers Care Linux System Engineer Name Role Phone Jeff Sherman MD Primary Care Provider [phone] Reason for Visit * Reason Comments Right Knee Pain Encounter Details Date Type Department Care Team (Latest Contact Info) Description 02/19/2016 2:00 PM EDT Office Visit [place] [address] Dane Fleming MD [facility] [place] [address] Presence of right artificial knee joint; Post-traumatic osteoarthritis of right knee Social History [...] as of this encounter Progress Notes * Cara Alonzo RN - 02/19/2016 2:00 PM EDT Arthroplasty History/Previous Knee Surgery: 1. NONE This note is recorded by JOSE DE JESUS Alonzo acting as a scribe for Dane Fleming MD. PREOPERATIVE VISIT Interval History: Yvan Maddox is a pleasant 41 y.o. year old male with severe osteoarthritis of the right knee being seen today to discuss a RIGHT total knee arthroplasty. His history and physical exam were reviewedin detail. His history in regards to his knee was once again discussed and is outlined in my previous note. Hestates the knee pain and disability is unchanged since our previous visit. They have watched the shared decision video and at this point are expressing a desire to proceed with knee replacement. He has quitting chewing tobacco and has smoked the occassional cigarette over the past few weeks. He had one cigarette today. He does not endorse a history of DVT/PE or clotting Physical Exam: Exam is previously documented in my note and is essentially unchanged. Range of motion is 5-110 degrees. Inspection of his skin on the operative leg demonstrates No skin breakdown. Significant Medical Comorbidities Patient Active Problem List Diagnosis Code ??? Post-traumatic osteoarthritis of right knee M17.31 ??? History of nasal surgery Z98.890 ??? Knee pain M25.569 VITALS: BP Readings from Last 1 Encounters: 02/19/16 128/77 Pulse Readings from Last 1 Encounters: 02/19/16 57 There is no height or weight on file to calculate BMI. Relevant Lab Studies Lab Results Component Value Date WBC 10.8 (H) 02/19/2016 HGB 14.8 02/19/2016 HCT 45.4 02/19/2016 PLATELET 290 02/19/2016 CREATININE 0.98 02/19/2016 BUN 8 (L) 02/19/2016 NA 142 02/19/2016 K 4.6 02/19/2016 EKG: Sinus bradycardia Otherwise normal ECG No previous ECGs available Questionnaire Response [facility] Surgical Preop Visit 12/12/2015 PROMIS-10 General Health Very Good PROMIS-10 [...] (e.g. Tylenol), Injection of steroids or cortisone KOOS-PS Scores 51.2 [facility] Response 12/12/2015 KOOS-PS Scores 51.2 Spine [facility] Response 12/12/2015 KOOS-PS Scores 51.2 Radiographic Anaysis: Together, we reviewed his radiographs obtained previously which demonstrate degenerative joint disease. Kellgren-Kobe Grade: 4= large osteophytes, marked narrowing, obvious deformity [0= normal; 1=minimal ; 2= some osteophytes , some narrowing ; 3= moderate osteophytes, significantnarrowing, mild deformity; 4= large osteophytes, marked narrowing, obvious deformity] Assessment and Plan: This is a pleasant 41 y.o. year-old male who presents for a preoperative appointment today for RIGHT knee OA TKA. I had a long discussion with him regarding the risks and benefits of right total kneearthroplasty. I indicated that in my opinion, this a treatment option with the potential to restorea more normal, pain-free level of function and that we have exhausted reasonable non- operative alternatives. I used total knee implants to demonstrate how I perform the procedure and all of their questions were answered. Mr. Maddox expressed a desire to pursue this option. We then discussed in great detail the risks associated with the proposed surgery. These included but were not limited to: bleeding (which may or may not require transfusion), infection, deep venous thrombosis, pulmonary embolus, prosthetic failure, loosening, prosthetic fracture, femur, tibia or patella fracture, dislocation, leg-length inequality, persistent pain, medical complications (including cardiac, respiratory and neurologic complications), anaesthetic complications, and . The patient seemed to understand the nature of this procedure's risks. We also discussed the likely benefit of improved stride length, improved range of motion, decreased pain, decreased need for pain medications and decrease functional limitations. The patient is aware that it would take on average of two days in the hospital, followed by approximately 12-18 months to full rehabilitation. We discussed the fact that if he continues to smoke he puts himself at increased risk of infection,wound breakdown, and blood clots. He has vowed he will be able to quit completely in the perioperative period. He acknowledged the risks of continuing to smoke. I did review the history and physical today which says the patient is cleared for surgery and has no specific recommendations for further testing. I reviewed the labs and did not identify anything that would warrant surgical delay. We discussed DNR status and he is a Full Code Per Dr. Espinosa's notes: Standard TKA care. Continue Benadryl at for his allergies and RLS. We reviewed options for postoperative DVT prophylaxis, based on AAOS guidelines. We discussed the pros and cons of ASA vs. Coumadin in terms of effectiveness and clot / embolus preventions vs. risks of bleeding and wound complications. My review of the patient's risk factors leads me to believe that they are at low risk for a clot and low risk for a bleed. We will thus plan to use Aspirin 81mg BID for 30 days postoperatively for DVT prophylaxis. We also reviewed their preferences regarding use of blood products and confirmed that while we would endeavor to minimize the risks of needing any transfusions, if circumstances were such that one ormore were indeed required, he would NOT refuse a blood transfusion. We discussed with them the possible discharge scenarios including going home versus needing to go to a rehab facility depending on how well their mobility progresses post-operatively. Their desire isto be discharged to Home. Any remaining questions were solicited from the patient and answered. Mr. Maddox wishes to proceed accordingly and informed consent was subsequently obtained for a RIGHT total knee arthroplasty. I ensured that the patient has the needed samples of hibiclens wash to use both the night before and the morning of the anticipated surgery. I have personally evaluated the patient and agree with the above note as recorded by Cara Alonzo RN. Dane Fleming MD, MS 02/19/2016 documented in this encounter Plan of Treatment Not on file documented as of this encounter Visit Diagnoses Diagnosis Presence of right artificial knee joint Knee joint replacement by other means Post-traumatic osteoarthritis of right knee Secondary localized osteoarthrosis, lower leg documented in this encounter Care Teams Linux System Engineer Relationship Specialty Start Date End Date Jeff Sherman MD [facility] [address] [place] [address] PCP - General General Internal Medicine 11/07/1509/16 documented as of this encounter
--- OUTSIDE RECORDS SUMMARY | 2024-03-18 15:00 | XMS_ITS | Encounter Summary ---
[facility] [place] [address] Care Team Providers Care Grooming Salon Manager Name Role Phone Jeff Lane MD Primary Care Provider Reason for Visit * Auth/Cert Specialty Diagnoses / Procedures Referred By Delbert diaz Referred To Contact Diagnoses Knee pain Right knee degenerative arthritis RIGHT KNEE DEGENERATIVE OA Procedures PRO TOTAL KNEE ARTHROPLASTY @TOTAL KNEE ARTHROPLASTY Referral ID Status Reason Start Date Expiration Date Visits Re quested Visits Authorized [id number] 1 1 Encounter Details Date Type Department Care Team (Late st Contact Info) Description 02/22/2016 7:30 AM EDT - 02/22/2016 10:28 AM EDT [place] [id number] Dane Chan MD [facility] [place] [address] TOTAL KNEE ARTHROPLASTY (WRVU 19.6) Social History Tobacco Use Types Packs/Day Years Used Date Smoking Tobacco: Some Days Cigarettes Smokeless Tobacco: Current Chew Comments:pt reports cutting back to 3 per day - no chew use since 9/20/16 Alcohol Use Standard Drinks/Week Comments No 0 (1 standard drink = 0.6 oz pur e alcohol) Sex and Gender Information Value Date Recorded Sex Assigned at Not on file Gender Identity Not on file Sexual Orientation Not on file documented as of this encounter Last Filed Vital Signs Vital Sign Reading Time Taken Comments Blood Pressure 116/79 02/22/2016 10:15 AM EDT Pulse 67 02/22/2016 10:15 AM EDT Temperature 36.4 ??C (97.5 ??F) 02/22/2016 10:01 AM E DT Respiratory Rate 28 02/22/2016 10:15 AM EDT Oxygen Saturation 98% 02/22/2016 10:15 AM EDT Inhaled Oxygen Concentration - - Weight 83 kg (183 lb) 02/22/2016 6:07 AM EDT Height - - Body Mass Index 25.52 02/22/2016 6:07 AM EDT documented in this encounter Discharge Summaries * Thao Jasmine PA - 02/23/2016 9:59 AM EDT Discharge Summary Patient Name: Yvan Maddox Patient Age: 41 y.o. Language: Welsh Race: White Ethnicity: Not nor Admit date: 02/22/2016 Discharge date and time: 02/23/2016 Attending Physician: Dane Chan MD Discharge Physician: Dane Chan MD Follow-up Recommendations for Providers: See discharge instructions for additional details. Future Appointments Date Time Provider Department Center 03/26/2016 2:00 PM [facility] 03/26/2016 3:00 PM Dane Cahn MD [facility] [place] [facility] Inpatient Provider Contact Information: Dane Chan MD Orthopedics: [phone] After hours and weekends, call [facility] Filler, , and have the Orthopedic resident paged. [...] bowel movement. You can also take an yfxe-yiw-tbjuqpm medication, Miralax if needed to combat constipation. [...] 1. You will have follow-up appointments at [facility] as indicated below in Future Appointment and Orders. 2. You will need to have x-rays prior to your follow-up appointment. Please come to Radiology, [facility], 1 hour BEFORE that appointment for those x-rays. Future Appointments Date Time Provider Department Center 03/26/2016 2:00 PM [facility] DX ROOM 4 [facility] [facility] 03/26/2016 3:00 PM Dane Chan MD [facility]C [place] [facility] If you have questions or concerns: Friday through Friday, 8 AM - 5 PM, please call Dane Barakat MD's office at . If it is after 5 PM, the weekend, or holidays, please call and ask to speak with theOrthopedic resident on-call. General Instructions Activity: 1. Your [...] bowel movement. You can also take an qjiq-mnc-iifmika medication, Miralax if needed to combat constipation. [...] 1. You will have follow-up appointments at [facility] as indicated below in Future Appointment and Orders. 2. You will need to have x-rays prior to your follow-up appointment on 03/26/16. Please come to Radiology, desk 3T, 1 hour BEFORE that appointment for those x-rays. Future Appointments Date Time Provider Department Center 03/26/2016 2:00 PM [facility] DX ROOM 4 [facility]ray [place] [facility] 03/26/2016 3:00 PM Dane Chan MD [facility] [address] [place] [address] CLIN If you have questions or concerns: [...] Provider Department Dept Phone 03/26/2016 2:00 PM [facility] DX ROOM 4 [facility] Xray [phone] Please go to Crna Area 3T ([place] Location). 03/26/2016 3:00 PM Dane Chan MD Orthopaedics [phone] Future Orders Complete By Expires Referral to Physical Therapy [REF87 Custom] As directed Process Instructions: Note: Please indicate in the comments any additional Instructions, Precautions or Contra-indications. Scheduling Instructions: Questions: Reason for PT: Right Total Knee Arthroplasty. Specialty Program Eval: Modalities could include: Treatment Focus: Walker standard [EQ135 Custom] As directed Process Instructions: Scheduling Instructions: Comments: Yvan Maddox [address] [facility] [address] (home) Telephone Information: Diagnosis: total knee replacement RLE with Unsteady gait Patient???s: Hgt: 180 cm Wgt: 83 kg VENDOR: [facility] Ordering: Front wheel walker Deliver to pt's hospital room #: 303b Questions: Vendor Name/Contact information: ortho care Primary Care Provider: JEFF LANE MD [phone] Discharge References/Attachments None documented in this encounter [...] bowel movement. You can also take an gowe-cuo-cqqhvzy medication, Miralax if needed to combat constipation. [...] you get home (and it is before 10/13), remove this operative dressing and replace it [...] 1. You will have follow-up appointments at [facility] as indicated below in Future Appointment and Orders. 2. You will need to have x-rays prior to your follow-up appointment on 03/26/16. Please come to Radiology, desk 3T, 1 hour BEFORE that appointment for those x-rays. Future Appointments Date Time Provider Department Center 03/26/2016 2:00 PM [facility] DX ROOM 4 [facility] [place] [facility] 03/26/2016 [...] out of facility via wheel chair and [address] [place] [address]. * Sonia Barboza RN - 02/23/2016 11:15 [...] Sonia Barboza Office of Care Management Pager [phone] * Daniella Degroot, LOAN UNDERWRITER - 02/23/2016 9:33 AM EDT Physical Therapy [...] ARTHROPLASTY performed by Dane Chan MD at [facility] MAIN OR Social History: Patient lives with his significant other in a home with 10 LETTY. Significant other and family members will be available for support as needed after d/c. 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 [...] treatment: 45 minutes for therapeutic functional Daniella Degroot, LOAN UNDERWRITER Pager: [phone] Physical Therapy Rehabilitation Department * Dane Chan [...] Time Provider Department Center 03/26/2016 2:00 PM [facility] DX ROOM 4 [facility] [place] [facility] 03/26/2016 3:00 PM Dane Chan MD [facility] [address] [place] [address] I saw and evaluated the patient on [...] teach back and return demonstrate to RN CM regarding s/s of SSI, how to use [...] previously worked with Kaden Arenas PT in [facility]; [phone]; RN ANDREI made PT appt with Tess Fletcher for 0700 on 02/26/16. Pt aware and accepted appt. Health/Prescription Coverage: Primary Insurance: Medicaid, [place] Secondary Insurance: n/a Prescription Coverage: Medicaid [place] Preferred Pharmacy: [email or web address] Other: n/a Primary Care Provider: JEFF LANE MD [phone] Patient/Caregiver Goals of Treatment: very eager to return home Potential Needs for Transition of Care: Rehab/SNF: n/a Home Health: n/a DME: walker cryocuff Dialysis: n/a Community Resources: PT out pt as above Transportation: with girlfriend Other: n/a Anticipated Barriers to Discharge/Special Considerations: none Plan: home with out-pt PT A member of the Care Management team will continue to monitor progress, follow for continuity of care and assist with transition of care planning. Sonia Barboza RN Pager: [phone] * Plan of Care - Wanda Campbell [...] of Care Goal: Plan of Care Review 02/23/16219 Plan of Care Review Plan of Care [...] Healing Patient will demonstrate the desired outcomes. 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 Up to chair frequently Time in/out: 2314-8761 Total treatment time: 30 minutes Total timed treatment: 10 minutes (ANNETTE) Desiree Bose PT DPT Pager: [phone] Physical Therapy Rehabilitation Department * Op Note - Dane Chan MD - 02/22/2016 9:[address] [facility] Operative Note Patient Name: Yvan Maddox : [id number] MR#: [id number] Case Date: 02/22/2016 Surgeon: Surgeon(s) and Role: [...] Implant Name Type Inv. Item Serial No. Tracer Bullet Section Supervisor Lot No. LRB No. Used Action CEMENT,BNE,SMARTSET,GHV,40G ([id number]) - [id number] IMPLANTS CEMENT,BNE,SMARTSET,GHV,40G ([id number]) Depuy Creel Hand - [id number] Right 1 Implanted TRAY,ATTUNE,FB,TIB,BSE,SZ7 ([id number]) (AUTOREQ) - [id number] IMPLANTS TRAY,ATTUNE,FB,TIB,BSE,SZ7 ([id number]) (AUTOREQ) Depuy Creel Hand - [id number] Right 1 Implanted COMPO,ATTUNE,PS,FEM,SZ7,RT ([id number]) (AUTOREQ) - [id number] IMPLANTS COMPO,ATTUNE,PS,FEM,SZ7,RT ([id number]) (AUTOREQ) Depuy Creel Hand - [id number] Right 1 Implanted MACEDO,ATTUNE,MDL,DOME,41MM ([id number]) (AUTOREQ) - [id number] IMPLANTS MACEDO,ATTUNE,MDL,DOME,41MM ([id number]) (AUTOREQ) Depuy Creel Hand - [id number] Right 1 Implanted INSER,ATTUNE,PS,FB,SZ7,5MM ([id number]) (AUTOREQ) - [id number] IMPLANTS INSER,ATTUNE,PS,FB,SZ7,5MM ([id number]) (AUTOREQ) Depuy Creel Hand - [id number] Right 1 Implanted INDICATIONS FOR PROCEDURE: This [...] planned surgery, and site according to the [facility] [place] Protocol. A nonsterile tourniquet was placed high [...] dressing was placed over the incision. A dxn-mh-egacs Jac bandage was applied. A CryoCuff and [...] IMPLANTABLE DEVICES SCAN 02/24/2016 12:00 AM EDT QUALITY INTERNSHIP SCAN 02/24/2016 12:00 AM EDT HEMOGRAM Routine [...] SCAN EXT O RDR/RSLT * SCAN DOC: QUALITY INTERNSHIP (02/24/2016 12:00 AM EDT) Anatomical Region Laterality Modality Other Scanning Provider MEDIA MGR SCAN EXT O RDR/RSLT * (ABNORMAL) Differential, Automated (02/23/2016 3:28 AM EDT) Neutrophil % 86.6 % [facility] Neutrophil Absolute 17.93(H) 1.70 - 6.10 x10(3)/mc L [facility] Lymph % 7.1 % [facility] Lymphocytes Abs 1.5 0.9 - 3.2 x10(3)/mc L [facility] Monocyte % 5.1 % [facility] Monocyte Abs 1.1(H) 0.3 - 0.9 x10(3)/mc L [facility] Eos % 0.0 % [facility] Eosinophils Abs 0.0 0.0 - 0.4 x10(3)/mc L [facility] Basophil % 0.2 % [facility] Baso Absolute 0.0 0.0 - 0.1 x10(3)/mc L [facility] Immature Gran % 1.00 % [facility] Comment: Immature granulocytes(IG's)percentage and absolute count will include metamyelocytes, myelocytes, and promyelocytes. Blood smears from CBCs yielding IG's will be scanned manually for concordance. If this scan disagrees with the automated IG or if promyelocytes are noted, a manual differential will be performed. Immature Gran Absolute 0.20(H) 0.00 - 0.04 x10(3)/ L [facility] Blood specimen (specimen) 02/23/2016 3:28 AM EDT 02/23/2016 3:40 AM EDT Narrative Resulting Agency Comment Spec In Lab Dane Chan MD HEMATOLOGY ORDERABLE S [facility] [place] [address] * (ABNORMAL) Hemogram (02/23/2016 3:28 AM EDT) White Blood Cell 20.7(H) 4.0 - 9.5 x10(3)/ L [facility] Red Blood Cell 4.74 4.58 - 5.54 x10(6)/[facility] Hemoglobin 13.9 13.7 - 16.5 gm/dL [facility] Hematocrit 42.2 40.5 - 48.5 % [facility] Mean Cell Volume 89.0 82.9 - 93.1 [facility] Mean Cell Hemoglobin 29.3 27.5 - 32.1 pg [facility] Mean Cell Hemoglobin Concentration 32.9 32.0 - 35.7 gm/dL [facility] Platelet 301 145 - 357 x10(3)/ L [facility] RDW Standard Deviation 43.2 36.0 - 45.0 [facility] RDW coefficient of variation 13.1 11.4 - 13.8 % [facility] Mean Platelet Volume 10.1 7.6 - 12.9 [facility] NRBC% auto 0.0 % [facility] NRBC Absolute 0.000 0.000 - 0.000 x10(3)/ L [facility] Blood specimen (specimen) 02/23/2016 3:28 AM EDT 02/23/2016 3:40 AM EDT Narrative Resulting Agency Comment Spec In Lab Dane Chan MD HEMATOLOGY ORDERABLE S [facility] [place] [address] * (ABNORMAL) Basic Metabolic Panel (non-fasting) (02/23/2016 3:28 AM EDT) Glucose 121 65 - 199 mg/dL [facility] Comment:Diabetes: >=200 mg/d L plus symptoms Blood Urea Nitrogen 16 10 - 20 mg/dL [facility] Creatinine 0.78(L) 0.80 - 1.50 mg/dL [facility] Comment: Please note that the pediatric reference intervals supplied above were not validated at [facility]. Results from pediatric patients should be interpreted in conjunction to the patient's age, height and muscle mass. Sodium 136 135 - 145 mmol/L [facility] Potassium 4.4 3.5 - 5.0 mmol/L [facility] Comment: Please note: ??Patients with WBC >100,000 may have falsely elevated Potassium levels. ??For accurate Potassium quantification in these patients send serum separator tube (gold top) for subsequent determinations. ??Contact the Clinical Chemistry Laboratory if there are any questions. Chloride 101 98 - 107 mmol/L [facility] Carbon Dioxide 21(L) 22 - 31 mmol/L [facility] Anion Gap 14 5 - 15 mmol/L [facility] Calcium 9.3 8.5 - 10.5 mg/dL [facility] Est Glomerular Filtration Rate >60 >=60 [facility] Comment: This estimated GFR (eGFR) value [...] the following links into your internet browser. [email or web address] Blood specimen (specimen) 02/23/2016 3:28 AM EDT 02/23/2016 3:40 AM EDT Narrative Resulting Agency Comment Spec In Lab Dane Chan MD CHEMISTRY ORDERABLES [facility] [place] [address] documented in this encounter Visit Diagnoses Not on filedocumented in this encounter Admitting Diagnoses Diagnosis Knee pain Pain in joint, lower leg documented in this encounter Administered Medications Inactive Administered Medications - up to 3 most recent administrations Medication Order MAR Action Action Date Dose Rate Site acetaminophen (TYLENOL) tablet 1,000 mg 1,000 mg, Oral, EVERY 8 HOURS SCHEDULED, First dose on Fri02/22/16 at 1400, Until Discontinued, Maximum dose of [...] Given 02/23/2016 8:11 AM EDT 325 mg bacitracin injection ONCE PRN, Starting on Fri02/22/16 at 0811, Until Fri02/23/16 at 1455, Intra-Operative (Intra-Procedure), Routine Given 02/22/2016 8:11 AM EDT 50,000 Units 19- Surgical Site BUpivacaine-EPINEPHrine 0.25 %-1:200,000 injection ONCE PRN, Starting on Fri02/22/16 at 0811, Until Fri02/23/16 at 1455, Intra-Operative (Intra-Procedure), Routine Given 02/22/2016 9:44 AM EDT 50 mLs 19- Surgical Site celecoxib (CeleBREX) capsule 200 mg 200 mg, Oral, 2 TIMES DAILY, First dose on Fri02/22/16 at 1100, Until Discontinued, Routine Given 02/23/2016 8:10 AM EDT 200 mg Given 02/22/2016 8:59 PM EDT 200 mg cloNIDine injection ONCE PRN, Starting on Kourtney 02/22/16 at 0812, Until Fri02/23/16 at 1455, Intra-Operative (Intra-Procedure), Routine Given 02/22/2016 8:12 AM EDT 50 mcg 19- Surgical Site gabapentin (NEURONTIN) [...] relieved by oxycodone, Routine ketorolac (TORADOL) injection ONCE PRN, Starting on Kourtney 02/22/16 at 0812, Until Fri02/23/16 at 1455, Intra-Operative (Intra-Procedure), Routine Given 02/22/2016 8:12 AM EDT 30 mg 19- Surgical Site melatonin tablet 3 mg 3 mg, Oral, NIGHTLY, First dose on Fri02/23/16 at 0100, Until Discontinued, Routine Given 02/23/2016 12:45 AM EDT 3 mg multivitamin Cygs-Kt-VA-Min (THERAPEUTIC-M) 27-0.4 mg tablet 1 tablet 1 [...] 02/22/16 at 2100, Until Discontinued, Routine Given 02/22/2016 [...] Oral, EVERY 6 HOURS PRN, Starting on Kourteny 02/22/16 at 1031, Until Fri02/23/16 at 1455, [...] Kaia Martins RN)2100 (Given - Provider: Wanda Campbell, JOSE DE JESUS) 0510 (Given - Provider: Wanda Campbell, JOSE DE JESUS) aspirin EC tablet 325 mg 325 mg, [...] Prophylaxis 1104 (Given - Provider: Kaia Martins RN)193 (Given - Provider: Mallory Lane, RN) 035 (Given - Provider: Wanda Campbell, JOSE DE JESUS) ceFAZolin (ANCEF) 2g in dextrose 5% 50 [...] intraop @ 0812)2058 (Given - Provider: Wanda Campbell, RN) 08 (Given - Provider: Reji Zuniga, JOSE DE JEUSS) celecoxib (CeleBREX) capsule 400 mg (COMPLETED) 400 mg, Oral, ONCE, 1 dose, On Kourtney 02/22/16 at 0630, Administer on arrival to Same Day Program, Day of Surgery (Day of Procedure), Routine 0630 (Given - Provider: Reji Ribeiro, JOSE DE JESUS) dexamethasone (DECADRON) tablet 4 mg (COMPLETED) 4 mg, Oral, DAILY, 2 doses, First dose on Kourtney 02/22/16 at 1700, Last dose on Fri02/23/16 at 0900, Routine 1654 (Given - Provider: Mallory Lane, JOSE DE JESUS) 0811 (Given - Provider: Reji Zuniga, JOSE DE JESUS) gabapentin (NEURONTIN) capsule 300 mg (COMPLETED) 300 mg, Oral, ONCE, 1 dose, On Kourtney 02/22/16 at 0630, Administer on arrival in Same Day Program, Day of Surgery (Day of Procedure), Routine 0630 (Given - Provider: Reji Ribeiro, JOSE DE JESUS) gabapentin (NEURONTIN) capsule 300 mg(Linked Group 1) 300 mg, Oral, NIGHTLY, First dose on 02/23/16 at 2100, Until Discontinued, Routine gabapentin (NEURONTIN) capsule 600 mg(Linked Group 1) 600 mg, Oral, NIGHTLY, 2 doses, First dose on Fri02/22/16 at 2100, Last dose on Fri02/23/16 at 2100, Routine 2057 (Given - Provider: Wanda Campbell RN) HYDROmorphone (DILAUDID) tablet 2 mg (COMPLETED) 2 mg, Oral, ONCE, 1 dose, On Fri02/23/16 at 0100, Routine 44 (Given - Provid er: Wanda Campbell RN) [...] Provider: Wanda Campbell RN)0700 (Given - Provider: eRji Zuniga RN) melatonin tablet 3 mg 3 mg, Oral, NIGHTLY, First dose on Fri02/23/16 at 0100, Until Discontinued, Routine 44 (Given - Provid er: Wanda Campbell RN) multivitamin Higk-Gp-VH-Min (THERAPEUTIC-M) 27-0.4 mg tablet 1 tablet 1 tablet, Oral, DAILY, First dose on Fri02/23/16 at 0900, Until Discontinued 08 (Given - Provid er: Reji Zuniga RN) [...] Kourtney 02/22/16 at 2100, Until Discontinued, Routine 2058 (Given - Provider: Wanda Campbell RN) 08 (Given - Provider: Reji Zuniga, JOSE DE JESUS) sodium chloride 0.9 % flush 5 mL 5 mL, Intravenous, 2 TIMES DAILY, First dose on Kourtney 02/22/16 at 2100, Until Discontinued, Recovery (Recovery-Hospital Unit), Routine 2106 (Given - Provider: Wanda Campbell RN) 08 (Given - Provider: Reji Zuniga, JOSE DE JESUS) tranexamic acid (CYKLOKAPRON) 1,293 mg in sodium [...] in 3 L NS administered via pulse chummer.) bisacodyl (DULCOLAX) EC tablet 10 mg 10 [...] patient unable to take PO, may give MA if ordered, Routine BUpivacaine-EPINEPHrine 0.25 %-1:200,000 injection [...] April Coats RN)2355 (Given - Provider: Wanda Campbell RN) 0351 (Given - Provider: Wanda Campbell RN) [...] 0812 (See Alternativ e - Provider: Reji Zuniga, RN)1125 (See Alternative - Provider: Reji Zuniga [...] Pain, Routine 1543 (Given - Provider: April Coats RN)2100 (Given - Provider: Wanda Campbell RN) Linked Groups Order Group 1: gabapentin (NEURONTIN) capsule 600 mgJump to med 600 mg, Oral, NIGHTLY, 2 doses, First dose on Koutrney 02/22/16 at 2100, Last dose on Fri02/23/16 [...] Routine documented in this encounter Care Teams Grooming Salon Manager Relationship Specialty Start Date End Date Jeff Lane MD [address] [place] [address] PCP - General General Internal Medicine 11/07/1509/16 documented as of this encounter
--- OUTSIDE RECORDS SUMMARY | 2024-03-18 15:00 | XMS_ITS | Encounter Summary ---
Author Organization [place] [id number] Care Team Providers Care Scrummaster Name Role Phone Jeff Sherman MD Primary Care Provider [phone] Reason for Referral * Physical Therapy (Routine) - Specialty Diagnoses / Procedures Referred By Contac t Referred To Contact Physical Therapy Diagnoses Post-traumatic osteoarthritis of right knee Primary osteoarthritis of right knee Laureen Martins APRN [facility] [place] [address] Referral ID Status Reason Start Date Expiration Date V isits Requested Visits Authorized [id number] Evaluate and Treat 11/13/2015 05/11/2016 12 12 Reason for Visit * Reason Comments Right Knee Pain * Consultation (Routine) - Closed Specialty Diagnoses / Procedures Referred By Contac t Referred To Contact Orthopaedics Diagnoses Degenerative joint disease Jeff Sherman MD [facility] [address] [place] [address] [place] [address] [facility] [address] [place] [id number] Referral ID Status Reason Start Date Expiration Date V isits Requested Visits Authorized [id number] Closed Consult, Test & Treat Connection Center 11/08/2015 11/07/2016 1 1 Encounter Details Date Type Department Care Team (Latest Contact Info) Description 11/13/2015 2:00 PM EDT Office [place] [phone] Laureen Martins, WEIGHTS AND MEASURES INSPECTOR [facility] DR ORTHOPAEDIC SURGERY [place] [id number] Primary osteoarthritis of right knee (Primary Dx); Post-traumatic osteoarthritis of right knee Social History Tobacco Use Types Packs/Day Years Used Date Smoking Tobacco: Some Days Cigarettes Smokeless Tobacco: Current Chew Sex and Gender Information Value Date Recorded Sex Assigned at Not on file Gender Identity Not on file Sexual Orientation Not on file documented as of this encounter Last Filed Vital Signs Vital Sign Reading Time Taken Comments Blood Pressure 116/70 11/13/2015 2:19 PM EDT Pulse 67 11/13/2015 2:19 PM EDT Temperature - - Respiratory Rate - - Oxygen Saturation - - Inhaled Oxygen Concentration - - Weight 86.2 kg (190 lb) 11/13/2015 2:19 PM EDT Height 180.3 cm (5' 11) 11/13/2015 2:19 PM EDT Body Mass Index 26.5 11/13/2015 2:19 PM EDT documented in this encounter Progress Notes * Laureen Martins, MESERET - 11/13/2015 2:10 PM EDT Images from the original note were not included. Department of Orthopaedics Division of Adult Joint Reconstructive Surgery CHIEF COMPLAINT: Right knee pain. ARTHROPLASTY HISTORY/PREVIOUS KNEE SURGERY: 1. NONE Yvan Maddox was referred from Jeff Sherman MD [facility] [address] [place] [address] I.D.: Yvan Maddox is a 40 y.o. year old male + chews tobacco being seen today to discuss his right knee. His history and physical exam were reviewed in detail. He states the knee has been symptomatic for years. The pain is predominantly medial. There was inciting trauma/injury + remote during a trampoline accident he twisted his knee with a ligament sprain ? ACL tear. He reports non-surgical treatment. He has developed post traumatic arthritis and is referred here to discuss treatment options. He does not describe hip pain. He feels that his knee painis keeping him from playing with his kids. Aggravating factors include activity, stair climbing, kneeling. Alleviating factors include rest, ice, medication: Ibuprofen used but not effective, avoiding painful activities. The patient has pain at night.. He can weight bear on the right leg and does not use assistive devices. He has not tried physical therapy. He has tried injections into the joint.: Cortisone injection last year that lasted ~ 1 week of painrelief. No hx of visco supplementation. He has tried NSAID's/Pain meds: Ibuprofen used but not effective He has brace treatment: + unloading brace has not made much of a difference. Mr. Maddox denies no fevers/chills/headache/chest pain/shortness of breath/abdominal pain/nausea or vomiting/weight changes He does not endorse a history of DVT/PE or clotting disorder. QUESTIONNAIRE RESPONSES: General Health, Prior Treatments, PreExisting Condition, Health Habits, About You 11/13/2015 PROMIS-10 General Health Good PROMIS-10 Quality of Life Good PROMIS-10 Physical Health Good PROMIS-10 Mental Health Good PROMIS-10 Social Activity Good PROMIS-10 Everyday Activities A little PROMIS-10 Fatigue Mild PROMIS-10 Social Roles Good PROMIS-10 Anxious or Depressed Never Weight (lbs) 190 Height (feet) 5 feet Height (Inches) 11 BMI 26.49 (Overweight) Ever used tobacco products Yes Tobacco frequency Daily or almost daily WHO - Tobacco Advice 6 (You are at risk of health and other problems from your current pattern of tobacco use.) Ever used alcoholic beverages Yes Alcohol frequency Never WHO - Alcohol Advice 0 (You are at low risk of health and other problems from your current pattern of use.) Live Alone No Marital situation Living with significant other Schooling High school graduate or GED Combined Household Income Less than $10,000 # People Supported 4 Lao, , No, not Lao// Race White Currently working Yes Current job situation Full-time No flowsheet data found. No flowsheet data found. ALLERGIES Allergies not on file Allergies to metals: none reported. 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 Post-traumatic osteoarthritis of right knee M17.31 VITALS: BP Readings from Last 1 Encounters: No data found for BP Pulse Readings from Last 1 Encounters: No data found for Pulse There is no height or weight on file to calculate BMI. PHYSICAL EXAM: Constitution: Yvan Maddox sits in the clinic today alert, appears stated age, cooperative, no distress and well developed, well-nourished. He is alert and oriented. I have made the following determinations: SLR capability is strong. + flexion contracture noted. + varus alignment. + small popliteal cyst. Knee Exam: Right Prior surgery on this joint: No Knee ROM: Extension:10 Flexion: 90 Alignment: 5-10 degrees Varus Stability: A/P Translation > 5mm 2 B Lilia. Varus (lateral stability) <5mm SEP Valgus (medial stability) <5mm SEP Extension La-10 degrees Radiographic evidence of joint damage: [0= normal; 1=minimal ; 2= some osteophytes , some narrowing ; 3= moderate osteophytes, significantnarrowing, mild deformity; 4= large osteophytes, marked narrowing, obvious deformity]: 3= moderate osteophytes, significant narrorwing, mild deformity Patella Tracking: Normal Skin Integrity: Normal Pulses Palpable: Right PT: Yes Right DP:Yes Motor/Sensory: Distal Motor: Normal Distal Sensory: Normal Quadriceps Strength: 5 Knee Effusion: 0-1+ Ecchymosis: none Patella: Patellar apprehension test: minimal Patellar compression test: minimal Tenderness: medial joint line IMAGING: X-rays of the right knee demonstrate shows DJD changes, likely chronic. See above. ASSESSMENT AND PLAN:Mr. Maddox is a 40 y.o. year old male with moderate osteoarthritis of his right knee. + post traumatic with ACL deficient knee. Treatment options and risks/benefits discussed from least to most invasive. Patient understands options. The arthritis ladder reviewed. At this time, Wecan try a right knee Synvisc-one injection, Lateral heel wedges, Trekking poles to help unload his painful joint, Mobic as an alternate oral NSAID not to be used with Ibuprofen. Cool packs and acetaminophen prn for pain no greater than 3 grams per day for any breakthrough pain. PT for quad and VMO strengthening. Potential barriers to total joint arthroplasty: -BMI > 40: No -Active Tobacco use: Yes + chews tobacco -Diabetes with hemoglobin A1C > 7.5: No We will have him return to Dr. Fleming's clinic to discuss response to Synvisc and talk about surgical TX options further for consideration of TKA versus uni-TKA. Pt agrees, questions solicited/answered,will return as scheduled and as needed for concerns or questions. Pt understands they may also callus prn for above. See below mentioned RTW letter as he should try to avoid heavy impact activity for about 48 hours after the injection. He will obtain additional imaging today namely alignment x-rays for Dr. Fleming's review as well as the shared decision making video prior to his next appointment. Ptagrees, questions solicited/answered, will return as scheduled and as needed for concerns or questions. Pt understands they may also call us prn for above. Follow up plan: Dr. Fleming's clinic about 4-6 weeks post injection to discuss Uni versus TKA surgery. Sooner prn. Procedure: Right knee Synvisc ONE injection: Lot # [id number] Expiration: 06/2018. Prior to beginning , a discussion was held regarding the risks and benefits of Synvisc injection, he understands the risk of post injection reactive synovitis, a timeout was held confirming the Correct side and medication being used. After which, using appropriate technique, approximately 3 mL of 1% lidocaine plain were used to anesthetize the skin. This was followed by an attempted aspiration, With a dry tap, Therefore with strict aseptic technique the Right knee was injected with same needle technique and strict aseptic technique with an injection with 48 mg of Synvisc one. Patient tolerated this procedure well. Tubi-crown pouncer was applied and he tolerated this well. He is advised to avoid heavy impact activity for a few days post injection and a letter was given to be out of work for a few days as directed in EDH. LAUREEN MARTINS APRN documented in this encounter Plan of Treatment Scheduled Referrals Name Type Priority Associated Diagnoses Orde r Schedule Referral to Physical Therapy Outpatient Referral Routine Post-traumatic osteoarthritis of right knee Primary osteoarthritis of right knee Ordered: 11/13/2015 documented as of this encounter Results * XR Joint Team Standing Alignment AP Lat Schuss [place] Bilateral (11/13/2015 3:58 PM EDT) Anatomical Region [...] documented in this encounter Visit Diagnoses Diagnosis Primary osteoarthritis of right knee- Primary Primary localized osteoarthrosis, lower leg Post-traumatic osteoarthritis of right knee Secondary localized osteoarthrosis, lower leg Post-traumatic osteoarthritis of right knee Secondary localized osteoarthrosis, lower leg Primary osteoarthritis of right knee Primary localized osteoarthrosis, lower leg documented in this encounter Administered Medications Inactive Administered Medications - up to 3 most recent administrations Medication Order MAR Action Action Date Dose Rate Site Hylan G-F 20 (SYNVISC-ONE) Syrg 48 mg 48 mg, Intra-articular, ONCE, On Fri11/13/15 at 1530, 1 dose Given 11/13/2015 3:09 PM EDT 48 mg lidocaine (XYLOCAINE) 10 mg/mL (1 %) injection 60 mg 60 mg, Intra-articular, ONCE, 1 dose, On Fri11/13/15 at 1530, Routine Given 11/13/2015 3:09 PM EDT 60 mg documented in this encounter Care Teams Scrummaster Relationship Specialty Start Date End Date Jeff Sherman MD [facility] [address] [place] [address] PCP - General General Internal Medicine 11/07/1509/16 documented as of this encounter
--- OUTSIDE RECORDS SUMMARY | 2024-03-18 15:00 | XMS_ITS | Encounter Summary ---
[place] [address] Care Team Providers Care Network Control Technician Name Role Phone Jeff Sherman MD Primary Care Provider [phone] Encounter Details Date Type Department Care Team (Latest Contact Info) Description 02/19/2016 12:20 PM EDT Clinical [place] [address] Post-traumatic osteoarthritis of right knee Social History [...] Taken Comments Blood Pressure - - Pulse 81 02/19/2016 11:59 AM EDT Temperature - - Respiratory Rate - - Oxygen Saturation 98% 02/19/2016 11:59 AM EDT Inhaled Oxygen Concentration - - Weight 83.2 kg (183 lb 6.4 oz) 02/19/2016 11:59 AM EDT Height 180.3 cm (5' 11) 02/19/2016 11:59 AM EDT Body Mass Index 25.58 02/19/2016 11:59 AM EDT documented in this encounter Progress Notes * Berta Barcenas RN - 02/19/2016 12:20 PM EDT PAT questionnaire reviewed with patient and girlfiriend, Christina while in Pre Admission testing. Previous surgery as teen with no complications that he remembers. Pre-operative instruction booklet reviewed. Pt states he has restless leg syndrome, sometimes my hips hurt so bad from it and I have trouble sleeping. Patient verbalizes a good understanding of all information reviewed. PLAN: Testing: Bloodwork, T&S, EKG. Sent to for CXR. Special medication instructions: n/a Procedure date: 02-22-[address] Fleming documented in this encounter Plan of Treatment Not on file documented as of this encounter Procedures Procedure Name Priority Date/Time Associated Diagnosis Comments EKG 12-LEAD Routine 02/19/2016 1:04 PM EDT Post-traumatic osteoarthritis of right knee documented in this encounter Results * EKG 12 Lead (02/19/2016 1:04 PM EDT) Ventricular rate 56 BPM MUSE SYSTEM Atrial Rate 56 BPM MUSE SYSTEM P-R Interval 132 ms MUSE SYSTEM QRS Duration 86 ms MUSE SYSTEM Q-T Interval 418 ms MUSE SYSTEM QTC Calculated (Bezet) 403 ms MUSE SYSTEM Calculated P [place] 42 degrees MUSE SYSTEM Calculated R [place] 36 degrees MUSE SYSTEM Calculated T [place] 52 degrees MUSE SYSTEM INTERPRETATION Sinus bradycardia [...] leg documented in this encounter Care Teams Network Control Technician Relationship Specialty Start Date End Date Jeff Sherman MD [facility] [address] [place] [address] PCP - General General Internal Medicine 11/07/1509/16 documented as of this encounter
--- OUTSIDE RECORDS SUMMARY | 2024-03-18 15:00 | XMS_ITS | Referral Summary ---
Author Organization [facility] Address [address] [place] [address] Care Team Providers Care Vascular Nurse Name Role Phone Teresa Field CHRISTOPHER Primary Care Provider [phone] Allergies No known active allergies Medications Medication [...] Mass Index - - Plan of Treatment Not on file Care Teams Vascular Nurse Relationship Specialty Start Date End Date Teresa Field FNP [address] [place] [address] PCP - General 06/28/21
--- OUTSIDE RECORDS SUMMARY | 2024-03-18 15:00 | XMS_ITS | Encounter Summary ---
[place] [address] Care Team Providers Care Java Lead Architect Name Role Phone Jeff Sherman MD Primary Care Provider [phone] Encounter Details Date Type Department Care Team (Latest Contact Info) Description 02/19/2016 12:40 PM EDT [place] [address] Post-traumatic osteoarthritis of right knee Social History [...] Priority Date/Time Associated Diagnosis Comments HEMOGRAM Routine 02/19/2016 1:00 PM EDT Post-traumatic osteoarthritis of right knee DIFFERENTIAL, AUTOMATED Routine 02/19/2016 1:00 PM EDT Post-traumatic osteoarthritis of right knee CBC (WITH DIFF) Routine 02/19/2016 1:00 PM EDT Post-traumatic osteoarthritis of right knee BASIC METABOLIC PANEL Routine 02/19/2016 1:00 PM EDT Post-traumatic osteoarthritis of right knee TYPE AND SCREEN, SDP (FUTURE SURGERY, [facility] SAME DAY PROGRAM ONLY) Routine 02/19/2016 12:59 PM EDT Post-traumatic osteoarthritis of right knee ABO/RH TYPING Routine 02/19/2016 12:59 PM EDT Post-traumatic osteoarthritis of right knee ANTIBODY SCREEN Routine 02/19/2016 12:59 PM EDT Post-traumatic osteoarthritis of right knee documented in this encounter Results * (ABNORMAL) Differential, Automated (02/19/2016 1:00 PM EDT) Neutrophil % 70.1 % [facility] Neutrophil Absolute 7.57(H) 1.70 - 6.10 x10(3)/mc L [facility] Lymph % 20.1 % [facility] Lymphocytes Abs 2.2 0.9 - 3.2 x10(3)/mc L [facility] Monocyte % 4.4 % [facility] Monocyte Abs 0.5 0.3 - 0.9 x10(3)/mc L [facility] Eos % 4.4 % [facility] Eosinophils Abs 0.5(H) 0.0 - 0.4 x10(3)/mc L [facility] Basophil % 0.6 % [facility] Baso Absolute 0.1 0.0 - 0.1 x10(3)/mc L [facility] Immature Gran % 0.40 % [facility] Comment: Immature granulocytes(IG's)percentage and absolute count will include metamyelocytes, myelocytes, and promyelocytes. Blood smears from CBCs yielding IG's will be scanned manually for concordance. If this scan disagrees with the automated IG or if promyelocytes are noted, a manual differential will be performed. Immature Gran Absolute 0.04 0.00 - 0.04 x10(3)/mc L [facility] Blood specimen (specimen) 02/19/2016 1:00 PM EDT 02/19/2016 1:36 PM EDT Narrative Resulting Agency Comment Spec In Lab Dane Fleming MD HEMATOLOGY ORDERABLE S [facility] [place] [address] * (ABNORMAL) Hemogram (02/19/2016 1:00 PM EDT) White Blood Cell 10.8(H) 4.0 - 9.5 x10(3)/mc L [facility] Red Blood Cell 5.00 4.58 - 5.54 x10(6)/[facility] Hemoglobin 14.8 13.7 - 16.5 gm/dL [facility] Hematocrit 45.4 40.5 - 48.5 % [facility] Mean Cell Volume 90.8 82.9 - 93.1 fL [facility] Mean Cell Hemoglobin 29.6 27.5 - 32.1 pg [facility] Mean Cell Hemoglobin Concentration 32.6 32.0 - 35.7 gm/dL [facility] Platelet 290 145 - 357 x10(3)/[facility] RDW Standard Deviation 43.4 36.0 - 45.0 [facility] RDW coefficient of variation 13.2 11.4 - 13.8 % [facility] Mean Platelet Volume 10.2 7.6 - 12.9 fL [facility] NRBC% auto 0.0 % [facility] NRBC Absolute 0.000 0.000 - 0.000 x10(3)/mc L [facility] Blood specimen (specimen) 02/19/2016 1:00 PM EDT 02/19/2016 1:36 PM EDT Narrative Resulting Agency Comment Spec In Lab Dane Fleming MD HEMATOLOGY ORDERABLE S [facility] [place] [address] * (ABNORMAL) Basic Metabolic Panel (non-fasting) (02/19/2016 1:00 PM EDT) Glucose 91 65 - 199 mg/dL [facility] Comment:Diabetes: >=200 mg/d L plus symptoms Blood Urea Nitrogen 8(L) 10 - 20 mg/dL [facility] Creatinine 0.98 0.80 - 1.50 mg/dL [facility] Comment: Please note that the pediatric reference intervals supplied above were not validated at [facility]. Results from pediatric patients should be interpreted in conjunction to the patient's age, height and muscle mass. Sodium 142 135 - 145 mmol/L [facility] Potassium 4.6 3.5 - 5.0 mmol/L [facility] Comment: Please note: ??Patients with WBC >100,000 may have falsely elevated Potassium levels. ??For accurate Potassium quantification in these patients send serum separator tube (gold top) for subsequent determinations. ??Contact the Clinical Chemistry Laboratory if there are any questions. Chloride 104 98 - 107 mmol/L [facility] Carbon Dioxide 25 22 - 31 mmol/L [facility] Anion Gap 13 5 - 15 mmol/L [facility] Calcium 9.4 8.5 - 10.5 mg/dL [facility] Est Glomerular Filtration Rate >60 >=60 [facility] Comment: This estimated GFR (eGFR) [...] the following links into your internet browser. [email or web address] Blood specimen (specimen) 02/19/2016 1:00 PM EDT 02/19/2016 1:36 PM EDT Narrative Resulting Agency Comment Spec In Lab Dane Fleming MD CHEMISTRY ORDERABLES Performing Organization Address City/[facility] Co de Phone Number [facility] [place] [address] * Antibody screen (02/19/2016 12:59 PM EDT) Ab Screen Interp Negative [facility] Expires at 2359 on: 02/25/2016 [facility] Blood specimen (specimen) 02/19/2016 12:59 PM EDT 02/19/2016 1:52 PM EDT Narrative Resulting Agency Comment Spec In Lab Dane Fleming MD BLOOD BANK LAB ORDER KONSTANTIN Performing Organization Address City/[facility]/ZIP Co de Phone Number [facility] [place] [address] * ABO/Rh Typing (02/19/2016 12:59 PM EDT) ABORH Type O Pos [facility] Blood specimen (specimen) 02/19/2016 12:59 PM EDT 02/19/2016 1:52 PM EDT Narrative Resulting Agency Comment Spec In Lab Dane Fleming MD BLOOD BANK LAB ORDER KONSTANTIN Performing Organization Address City/[facility]/ZIP Co de Phone Number [facility] [address] documented in this encounter Visit Diagnoses Diagnosis Post-traumatic osteoarthritis of right knee Secondary localized osteoarthrosis, lower leg documented in this encounter Care Teams Java Lead Architect Relationship Specialty Start Date End Date Jeff Sherman MD [facility] [address] [facility] [place] [address] PCP - General General Internal Medicine 11/07/1509/16 documented as of this encounter
--- OUTSIDE RECORDS SUMMARY | 2024-03-18 15:00 | XMS_ITS | Encounter Summary ---
Author Organization [facility] Address [address] [place] [address] Care Team Providers Care Sinter Press Operator Name Role Phone Unknown, Provider Primary Care Provider Teresa Foley Primary Care Provider [phone] Encounter Details Date Type Department Care Team (Late st Contact Info) Description 05/17/2019 Lab Requisition [facility] Pathology & Laboratory Medicine - [address] [address] Peggy Brennan, DO [address] [place], [place] [id number] Encounter for other general examination Social History Tobacco Use Types Packs/Day Years Used Date Smoking Tobacco: Never Assessed Sex and Gender Information Value Date Recorded Sex Assigned at Not on file Gender Identity Male 06/28/2021 11:03 EST Sexual Orientation Not on file documented as of this encounter Plan of Treatment Not on file documented as of this encounter Procedures Procedure Name Priority Date/Time Associated Diagnosis Comments SURGICAL PATHOLOGY Today 05/17/2019 11 :35 EST Encounter for other general examination documented in this encounter Results * SURGICAL PATHOLOGY (05/17/2019 11:35 EST) Final Diagnosis A. DUODENUM, BULB, BIOPSY: - Duodenal bulb mucosa with mild peptic duodenitis. B. STOMACH, ANTRUM, BIOPSY: - Gastric antral mucosa with mild reactive (chemical) gastropathy. - Negative for Helicobacter pylori microorganisms on H&E stained sections. C. STOMACH, GREATER CURVATURE, BIOPSY: - Gastric body mucosa with no specific pathologic features. D. GASTROESOPHAGEAL JUNCTION, BIOPSY: - Squamocolumnar junctional mucosa with active reflux esophagitis. - Negative for intestinal metaplasia; Negative for dysplasia. E. ESOPHAGUS, DISTAL, BIOPSY: - Squamous mucosa with mild reactive changes. F. COLON, 50 CM, BIOPSY: - Colonic mucosa with no specific pathologic features. G. COLON, 40 CM, BIOPSY: - Colonic mucosa with ischemic pattern injury. H. COLON, 30 CM, BIOPSY: - Colonic mucosa with ischemic pattern injury. I. COLON, 20 CM: - Colonic mucosa with no specific pathologic features. J. RECTUM, BIOPSY: - Rectal mucosa with no specific pathologic features. 05/20/2019 11:09 [facility] at 1109 Clinical History Acute colitis GERD Mod-severe esophagitis Hiatal hernia (small) Possible Carter's (pending path) Poss Crohn's 05/20/2019 11:09 [facility] Attestation There was significant resident/fellow involvement in the diagnostic evaluation of this case. By the signature below, the attending physician certifies that they have personally conducted a gross and/or microscopic examination of the described specimens and rendered or confirmed the above diagnosis. 05/20/2019 11:09 [facility] at 1109 Gross Description A. Received in formalin labelled with proper patient identification (initials C, T) and duodenal bulb Bx is a 0.2 x 0.2 x 0.2 cm fragment of pink-hassan soft tissue. The specimen is submitted in toto in A1. B. Received in formalin labelled with proper patient identification (initials C, T) and antrum Bx is a 0.4 x 0.2 x 0.2 cm fragment of pink-hassan soft tissue. The specimen is submitted in toto in B1. C. Received in formalin labelled with proper patient identification (initials C, T) and greater curve Bx is a 0.6 x 0.3 x 0.2 cm fragment of pink-hassan soft tissue. The specimen is submitted in toto in C1. D. Received in formalin labelled with proper patient identification (initials C, T) and GE junction Bx are 3 fragments of pink-white soft tissue (ranging from 0.2 cm to 0.6 cm in greatest dimension). The specimen is submitted in toto in D1. E. Received in formalin labelled with proper patient identification (initials C, T) and distal esophagus Bx is a 0.3 x 0.2 x 0.2 cm fragment of hassan-white soft tissue. The specimen is submitted in toto in E1. F. Received in formalin labelled with proper patient identification (initials C, T) and Bx at 50 cm x 2 are 3 fragments of hassan-white soft tissue (ranging from 0.2 cm to 0.5 cm in greatest dimension). The specimen is submitted in toto in F1. G. Received in formalin labelled with proper patient identification (initials C, T) and Bx at 40 cm are 2 fragments of hassan-red soft tissue (each averaging 0.3 x 0.2 x 0.2 cm). The specimen is submitted in toto in G1. H. Received in formalin labelled with proper patient identification (initials C, T) and Bx at 30 cm x 2 are 2 fragments of pink-red soft tissue (0.2 x 0.2 x 0.2 cm and 0.4 x 0.2 x 0.2 cm). The specimen is submitted in toto in H1. I. Received in formalin labelled with proper patient identification (initials C, T) and Bx at 20 cm x 2 are 2 fragments of pink-hassan soft tissue (0.2 x 0.2 x 0.2 cm and 0.5 x 0.2 x 0.2 cm). The specimen is submitted in toto in I1. J. Received in formalin labelled with proper patient identification (initials C, T) and rectal Bx x1 are 2 fragments of pink-hassan soft tissue (each averaging 0.2 x 0.2 x 0.2 cm). The specimen is submitted in toto in J1. Tigist Titus 05/17/2019 17:47 05/20/2019 11:09 [facility] Resident/Ajay w: Theron Varner MD 05/20/2019 11:09 [facility] Scanned Images 05/20/2019 11:09 [facility] Tissue SPECIMEN FROM RECTUM / Unknown 05/17/2019 11:35 EST 05/17/2019 17:27 EST Tissue specimen (specimen) STOMACH STRUCTURE / Unknown 05/17/2019 11:35 EST 05/17/2019 17:27 EST Tissue specimen (specimen) STOMACH STRUCTURE / Unknown 05/17/2019 11:35 EST 05/17/2019 17:27 EST Tissue specimen (specimen) ESOPHAGEAL STRUCTURE / Unknown 05/17/2019 11:35 EST 05/17/2019 17:27 EST Tissue specimen (specimen) ESOPHAGEAL STRUCTURE / Unknown 05/17/2019 11:35 EST 05/17/2019 17:27 EST Tissue specimen (specimen) COLON STRUCTURE / Unknown 05/17/2019 11:35 EST 05/17/2019 17:27 EST Tissue specimen (specimen) COLON STRUCTURE / Unknown 05/17/2019 11:35 EST 05/17/2019 17:27 EST Tissue specimen (specimen) COLON STRUCTURE / Unknown 05/17/2019 11:35 EST 05/17/2019 17:27 EST Tissue specimen (specimen) COLON STRUCTURE / Unknown 05/17/2019 11:35 EST 05/17/2019 17:27 EST Tissue specimen (specimen) SPECIMEN FROM RECTUM / Unknown 05/17/2019 11:35 EST 05/17/2019 17:27 EST Peggy Brennan DO PATHOLOGY ORDERABLES [facility] [address] [place] [address] documented in this encounter Visit Diagnoses Diagnosis Encounter for other general examination documented in this encounter Care Teams Sinter Press Operator Relationship Specialty Start Date End Date Unknown, Provider, PCP - General 08/27/15 06/27/21 Teresa Field FNP [address] [place] [place] [address] PCP - General 06/28/21 documented as of this encounter
--- OUTSIDE RECORDS SUMMARY | 2024-03-18 15:00 | XMS_ITS | Encounter Summary ---
Author Organization [facility] Address [address] [place] [address] Care Team Providers Care Actuarial Mathematician Name Role Phone Unknown, Provider Primary Care Provider Teresa Foley Primary Care Provider [phone] Encounter Details Date Type Department Care Team (Late st Contact Info) Description 05/17/2019 Lab Requisition [facility] Pathology & Laboratory Medicine - [address] [address] Unknown, Provider, Social History Tobacco Use Types Packs/Day Years Used Date Smoking Tobacco: Never Assessed Sex and Gender Information Value Date Recorded Sex Assigned at Not on file Gender Identity Male 06/28/2021 11:03 EST Sexual Orientation Not on file documented as of this encounter Plan of Treatment Not on file documented as of this encounter Procedures Procedure Name Priority Date/Time Associated Diagnosis Comments FECAL BACTERIAL PATHOGENS BY PCR Routine 05/16/2019 22:30 EST documented in this encounter Results * FECAL BACTERIAL PATHOGENS BY PCR (05/16/2019 22:30 EST) Salmonella PCR Negative Negative 05/18/2019 10:30 EST [facility] Shigella/Enteroin vasive E. coli Negative Negative 05/18/2019 10:30 EST [facility] HN LAB CAMPYLOBACTER PCR Negative Negative 05/18/2019 10:30 EST [facility] Shiga Toxin PCR Negative Negative 9 10:30 EST [facility] Feces 05/16/2019 22:3 0 EST 05/17/2019 21:34 EST Provider Unknown MICROBIOLOGY - GENER AL ORDERABLES [facility] [address] [place] [address] documented in this encounter Visit Diagnoses Not on filedocumented in this encounter Care Teams Actuarial Mathematician Relationship Specialty Start Date End Date Unknown, Provider, PCP - General 08/27/15 06/27/21 Teresa Field FNP [facility] [place] [place] [address] PCP - General 06/28/21 documented as of this encounter
--- OUTSIDE RECORDS SUMMARY | 2024-03-18 15:00 | XMS_ITS | Encounter Summary ---
Author Organization [facility] [place] [address] Care Team Providers Care Classification Case Manager Name Role Phone Jeff Sherman MD Primary Care Provider [phone] Encounter Details Date Type Department Care Team (Latest Contact Info) Description 02/19/2016 1:56 PM EDT - 02/19/2016 11:59 PM EDT Hospital Encounter XRay at [address] [place] [address] Dane Fleming MD [facility] [place] [address] Post-traumatic osteoarthritis of right knee Discharge Disposition: [...] Name Priority Date/Time Associated Diagnosis Comments XR CHEST PA AND LATERAL Routine 02/19/2016 2:00 PM EDT Post-traumatic osteoarthritis of right knee [...] abnormality. Dane Fleming MD IMG DX ORDERABLES documented in this encounter Visit Diagnoses Diagnosis Post-traumatic osteoarthritis of right knee Secondary localized osteoarthrosis, lower leg documented in this encounter Care Teams Classification Case Manager Relationship Specialty Start Date End Date Jeff Sherman MD [facility] [address] [place] [address] PCP - General General Internal Medicine 11/07/1509/16 documented as of this encounter
--- OUTSIDE RECORDS SUMMARY | 2024-03-18 15:00 | XMS_ITS | Encounter Summary ---
[place] [address] Care Team Providers Care Warehouse Unloader Name Role Phone Jeff Sherman MD Primary Care Provider [phone] Reason for Visit * Auth/Cert Specialty Diagnoses / Procedures Referred By Delbert diaz Referred To Contact Diagnoses Knee pain Right knee degenerative arthritis RIGHT KNEE DEGENERATIVE OA Procedures PRO TOTAL KNEE ARTHROPLASTY @TOTAL KNEE ARTHROPLASTY Referral ID Status Reason Start Date Expiration Date Visits Re quested Visits Authorized [id number] 1 1 Encounter Details Date Type Department Care Team (Late st Contact Info) Description 02/22/2016 7:21 AM EDT Anesthesia Event [place] [address] Jody Richardson MD [facility] [place] [address] Anesthesia Record Procedure Summary Procedure Name Responsible Anesthesiologist Anesthesia Start Time Anesthesia Stop Time TOTAL KNEE ARTHROPLASTY (WRVU 19.6) (Right: Knee) Jody Richardson MD 02/22/16 0721 02/22/16 1003 Events Date Time Event Comment 02/22/2016 0720 0720 AN Verify 0721 Start 0721 An Start Data 0730 Spinal 0730 Anesthesia Ready 0756 An Tourn Inflated 250mmHg RL E 0757 Procedure Start 0903 Break/Relief In JODY PATTON MD 0921 Break/Relief Out 0926 An Tourn Deflated 0954 Procedure Stop 0957 an stop data 1003 Recovery or ICU Handoff Dorene ent care was transferred to the destination unit staff after review of the patient's medical history, current anesthetic/surgical status and plan, according to the Provider Handoff Checklist. 1003 Stop Meds Name Total fentaNYL 75 mcg Propofol 80 mg Propofol INF 865.28 mg BUpivacaine 0.75% spinal 15 mg ceFAZolin (ANCEF) 2g in dextrose 5% 50 m L 2 g tranexamic acid (CYKLOKAPRON) 1,293 mg i n sodium chloride 0.9% 112.93 mL 1,293 mg Ondansetron 4 mg Lactated Ringers 1,000 mL * Agents Name O2 * Blood No blood administrations on file. Lines, Drains, and Airways Type Details Placement Removal Incision 02/22/16; knee; 01/14/22 (LDA cleanup utility RA#[id number]); 1715 (LDA cleanup utility RA#[id number]) 02/22/16 0000 by Ewa Hernandez RN 01/14/22 1715 by Jose Juan Spencer (RETIRED) Peripheral IV Line - Single Lumen 02/22/16; 0635; metacarpal vein left (top of hand); 18 gauge, 1 in length; distraction, intradermal injection, tolerated well, appears comfortable; no longer indicated, catheter intact; 02/23/16; 1120 02/22/16 0635 by Reji Ribeiro, RN 02/23/16 1120 by Reji Zuniga, RN documented in this encounter Social History Tobacco [...] OR Notes * Anesthesia Postprocedure Evaluation - Jody Richardson MD - 02/22/2016 4:46 PM EDT [facility] Department of Anesthesiology Post-procedure Note Patient: Yvan Maddox Procedure Summary Date Anesthesia Start Anesthesia Stop Room / Location 02/22/16 0721 1003 [facility] OR 12 / [facility] MAIN OR Procedure Diagnosis Surgeon Responsible Provider @TOTAL KNEE ARTHROPLASTY (Right Knee); MODIFIER: ATTUNE STABILIZED FIXED PLATFORM DEPUY (N/A ) (Right knee degenerative arthritis) Dane Fleming MD Procopio, Marcia A, MD All Anesthesia Providers: Anesthesiologist: Jody Richardson MD APPRENTICE LINEMAN THIRD STEP: Yfn Raya CRNA Last (1hr) Vitals: BP Temp Pulse Resp SpO2 Patient Location: PACU/[facility] Level of Consciousness: Awake and Alert Pain Management: Satisfactory Analgesia PONV: None Cardiovascular Status: At Baseline and Hemodynamically Stable Respiratory Status: At Baseline and Room Air Postoperative Fluid Status: Intravascular EUvolemia Possible Anesthetic Complications: NONE apparent at time of evaluation Final Primary Anesthesia Type: Spinal (The anesthetic type performed was the same as planned.) Comments: JODY RICHARDSON MD * Anesthesia Procedure Notes - Yfn Raya CRNA - 02/22/2016 7:35 AM EDT Associated Order(s): ANE NEURAXIAL UPDATED Procedure: Neuraxial Block Primary Anesthetic Type: Spinal The patient was greeted. The sedation plan, its benefits, risks and alternatives were discussed with the patient. The patient has consented to the procedure. The medical history and chart were reviewed. The timeout was performed. Start time: 02/22/2016 7:25 AM End time: 02/22/2016 7:30 AM Patient Location: Operating Room Patient Prep Prep: Hand Hygiene, Hat, Mask, Chlorhexidine, Sterile Gloves and Patient Draped Injection technique: single-shot Skin Anesthetic Lidocaine 1% 3 ml Procedure Technique Level of needle insertion: L3-4 Needle approach: midline Needle Type: [facility] Gauge: 25 Needle length: 3.5 in Number of attempts: 1 Intrathecal Injection The patient received the following medication/s as an intrathecal injection: Bupivacaine 0.75% w dextrose 2 ml Events/Notes Events: None Resident/ANISHA: Elver Fellow: Attending Physician: Dylan ~~~~~~~~~~~~~~~~~~~~~~~~~~~~~~~~~~~~~~~~~~~~~~~~~~~~~~~~~~~~ * Anesthesia Procedure Notes - Shakeel Massey - 02/22/2016 6:58 AM EDT Associated Order(s): ANESTHESIA BLOCK Procedure: Anesthesia Block Block: Post-op Pain Control, adductor canal block Start time: 02/22/2016 6:45 AM End time: 02/22/2016 6:59 AM Patient Location: Block Room Indication/Prep Position: supine Prep: mask, cap, sterile gloves, hand hygeine Laterality: right Skin Medication lidocaine 1% 3 ml Injection Information Injection technique:single-shot Needle Length: 10 cm Gauge: 18 Needle Type: A-bkiqf-qeabi Medication injection made incrementally with aspirations. Nerve infiltration solution through a needle Bupivicaine 0.5% 20 mL Resident: katharine Fellow: Attending Physician: Sites ~~~~~~~~~~~~~~~~~~~~~~~~~~~~~~~~~~~~~~~~~~~~~~~~~~~~~~~~~~~~ * Anesthesia Preprocedure Evaluation - Moises Bradshaw DO - 02/22/2016 6:24 AM EDT Pre-Anesthesia Evaluation for: Yvan Maddox a 41 y.o. male. Procedure(s): @TOTAL KNEE ARTHROPLASTY MODIFIER: ATTUNE STABILIZED FIXED PLATFORM DEPUY Patient Active Problem List Diagnosis ??? Knee pain ??? Post-traumatic osteoarthritis of right knee ??? History of nasal surgery No past medical history on file. No past surgical history on file. Social History Substance Use Topics ??? Smoking status: Current Some Day Smoker Packs/day: 0.50 Types: Cigarettes ??? Smokeless tobacco: Current User Types: Chew Comment: pt reports cutting back to 3 per day - no chew use since 02/06/16 ??? Alcohol use No History Drug Use ??? Yes ??? Special: Marijuana Allergies Allergen Reactions ??? Hay [Grass Pollen-[place], Standard] Hives Medications: MAR and/or home medications have been reviewed. Physical Exam: Vitals: 02/22/16 0610 BP: 125/85 Pulse: 75 Resp: 18 Temp: 36.4 ??C (97.5 ??F) Body mass index is 25.52 kg/(m^2). Weight - Scale: 83 kg (183 lb) Airway Assessment: Mallampati: II TM distance: >3 FB Neck ROM: full Cardiovascular Assessment: Pulmonary Assessment: Dental Assessment: Misc Assessment: Anesthesia Plan: ASA 2 spinal, with a(n) intravenous induction 41 y.o. Male otherwise healthy presenting for total knee arthroplasty. Lab Results Component Value Date HGB 14.8 02/19/2016 PLATELET 290 02/19/2016 NA 142 02/19/2016 K 4.6 02/19/2016 CREATININE 0.98 02/19/2016 02/19/16 1259 ABORH O Pos Allergies: -- Hay (Grass Pollen-[place], Standard) -- Hives NPO Status: Appropriate Anesthetic hx: No reported prior complications with anesthesia Airway hx: no records Anesthetic Plan: Pt. Request GA. Pt. Request regional technique for post-op pain control. Adductor canal for post-op pain control. Standard ASA monitoring. Adequate IV access Region - Other Informed Consent: Anesthetic plan and risks discussed with patient. Use of blood products discussed with patient who consented to blood products. Plan discussed with attending. PAT Staff Note documented in this encounter Plan of Treatment Not on file documented as of this encounter Procedures Procedure Name Priority Date/Time Associated Diagnosis Comments ANE NEURAXIAL UPDATED Routine 02/22/2016 7:37 AM EDT Procedure Note - Yfn Raya CRNA - 02/22/2016 7:35 AM EDTThis note is in progress. Procedure: Neuraxial Block Primary Anesthetic Type: Spinal The patient was greeted. The sedation plan, its benefits, risks andalternatives were discussed with the patient. The patient has consentedto the procedure. The medical history and chart were reviewed. Thetimeout was performed. Start time: 02/22/2016 7:25 AM End time: 02/22/2016 7:30 AM Patient Location: Operating Room Patient Prep Prep: Hand Hygiene, Hat, Mask, Chlorhexidine, Sterile Gloves and PatientDraped Injection technique: single-shot Skin Anesthetic Lidocaine 1% 3 ml Procedure Technique Level of needle insertion: L3-4 Needle approach: midline Needle Type: [facility] Gauge: 25 Needle length: 3.5 in Number of attempts: 1 Intrathecal Injection The patient received the following medication/s as an intrathecalinjection: Bupivacaine 0.75% w dextrose 2 ml Events/Notes Events: None Resident/ANISHA: Elver Fellow: Attending Physician: Dylan ~~~~~~~~~~~~~~~~~~~~~~~~~~~~~~~~~~~~~~~~~~~~~~~~~~~~~~~~~~~~ ANESTHESIA BLOCK Routine 02/22/2016 6:59 AM EDT Procedure Note - Shakeel Massey S - 02/22/2016 6:58 AM EDTThis note is in progress. Procedure: Anesthesia Block Block: Post-op Pain Control, adductor canal block Start time: 02/22/2016 6:45 AM End time: 02/22/2016 6:59 AM Patient Location: Block Room Indication/Prep Position: supine Prep: mask, cap, sterile gloves, hand hygeine Laterality: right Skin Medication lidocaine 1% 3 ml Injection Information Injection technique:single-shot Needle Length: 10 cm Gauge: 18 Needle Type: E-usnpm-lzovn Medication injection made incrementally with aspirations. Nerve infiltration solution through a needle Bupivicaine 0.5% 20 mL Resident: katharine Fellow: Attending Physician: Barber ~~~~~~~~~~~~~~~~~~~~~~~~~~~~~~~~~~~~~~~~~~~~~~~~~~~~~~~~~~~~ documented in this encounter Visit Diagnoses Not on filedocumented in this encounter Administered Medications Inactive Administered Medications - up to 3 most recent administrations Medication Order MAR Action Action Date Dose Rate Site BUpivacaine 0.75% in dextrose 8.25% (intrathecal) (SENSORCAINE) 0.75 % (7.5 mg/mL) injection Intrathecal, PRN, Starting on Kourtney 02/22/16 at 0730, Until Kourtney 02/22/16 at 1003, Anesthesia Intra-op, Routine Given 02/22/2016 7:30 AM EDT 15 mg ceFAZolin (ANCEF) 2g in dextrose 5% 50 mL 2 g, Intravenous, EVERY 3 HOURS, 1 dose, First dose on Kourtney 02/22/16 at 0630, Administer over 30 Minutes, Redose after 3 hours., Intra-Operative (Intra-Procedure), Indication for (Active or Suspected): Prophylaxis Given 02/22/2016 7:33 AM EDT 2 g fentaNYL 50 mcg/mL multi-dose injection Intravenous, PRN, Starting on Kourtney 02/22/16 at 0730, Until Kourtney 02/22/16 at 1003, Pain, Anesthesia Intra-op, Routine Given 02/22/2016 9:02 AM EDT 25 mcg Given 02/22/2016 7:30 AM EDT 50 mcg lactated ringers infusion CONTINUOUS PRN, Starting on Kourtney 02/22/16 at 0720, Until Kourtney 02/22/16 at 1003, Anesthesia Intra-op New Bag 02/22/2016 9:54 AM E DT New Bag 02/22/2016 7:20 AM EDT ondansetron (ZOFRAN) injection PRN, Starting on Kourtney 02/22/16 at 0945, Until Kourtney 02/22/16 at 1003, Nausea, Anesthesia Intra-op, Routine Given 02/22/2016 9:45 AM EDT 4 mg propofol (DIPRIVAN) 10 mg/mL bolus injection (Anesthesia) Intravenous, PRN, Starting on Kourtney 02/22/16 at 0730, Until Kourtney 02/22/16 at 1003, Anesthesia Intra-op Given 02/22/2016 9:02 AM EDT 30 mg Given 02/22/2016 7:30 AM EDT 50 mg propofol (DIPRIVAN) infusion Intravenous, CONTINUOUS PRN, Starting on Kourtney 02/22/16 at 0730, Until Kourtney 02/22/16 at 1003, Anesthesia Intra-op, Routine New Bag 02/22/2016 7:30 AM EDT 75 mcg/kg/min 37.4 mL/hr tranexamic acid (CYKLOKAPRON) 1,293 mg in sodium chloride 0.9% 112.93 mL 1,293 mg (15 mg/kg/dose ? 86.2 kg), Intravenous, ONCE, 1 dose, On Kourtney 02/22/16 at 0630, Administer over 30 Minutes, Dilute tranexamic acid dose in 100 mL sodium chloride 0.9% prior to administration. For patients less than or equal to 200 kg infuse over 30 minutes. For patients greater than 200 kg infuse over 60 minutes., Day of Surgery (Day of Procedure) New Bag 02/22/2016 7:33 AM EDT 1,293 mg documented in this encounter Care Teams Warehouse Unloader Relationship Specialty Start Date End Date Jeff Sherman MD [facility] [address] [place] [address] PCP - General General Internal Medicine 11/07/1509/16 documented as of this encounter
[2024-03-18 16:03] LABS: D-Dimer 206 ng/mlFEU (<500)
== END 2024-03-18 14:41 | disposition home or self-care (01) ==
LOC: LBO 14:41
PROVIDERS: Visit Provider Family Medicine
DX: R07.89 Other chest pain (principal)
CPT/HCPCS: 36415; 85379

== ENCOUNTER 2024-03-18 14:41 | Outpatient (CLI) | payer MEDICAID, SELFPAY ==
--- NOTE | 2024-03-18 14:15 | DI.RAD_ITS ---
Exam(s) XR CHEST 2V PA LATERAL EXAM: XR CHEST 2V PA LATERAL CLINICAL HISTORY: Rt-sided chest pain, R07.89. TECHNIQUE: 2D digital imaging was performed. COMPARISON: CR,XR XR PORTABLE CHEST AP from 01/04/2021 FINDINGS: 2 views: Heart size is normal. The mediastinum is not widened. Lungs are clear. No infiltrates nor pleural effusions. On the lateral view there is mild wedging of 2 adjacent thoracic vertebral bodies, probably T5 and T6 IMPRESSION: No acute pulmonary findings. Nonacute mild wedging of T5 and T6 vertebral bodies evident. DATA REPOSITORY: RADIATION DOSE DELIVERED:
== END 2024-03-18 15:01 ==
LOC: DI 14:41
PROVIDERS: Visit Provider Family Medicine
DX: R07.89 Other chest pain (principal)
CPT/HCPCS: 71046

== ENCOUNTER 2024-04-08 09:44 | Emergency (ER) | payer MEDICAID, SELFPAY ==
[2024-04-08] VITALS (17 sets, daily range): BP systolic 125–153; BP diastolic 86–101; PULSE 59–82; RESP 12–30; TEMP 36.2–36.6; O2SAT 96–99
--- NOTE | 2024-04-08 10:00 | RT.EKG_ITS ---
APPROVED REPORT Exam: Resting ECG Reason for Exam: gi bleed Patient Location: E HR:70 bpm ECG Measurements Heart Rate 70 AXIS OH 141 P 48 QRSd 90 QRS 30 QT 402 T 49 QTc 434 Conclusion Sinus rhythm...normal P axis, V-rate 60- 99
--- OUTSIDE RECORDS SUMMARY | 2024-04-08 10:04 | XMS_ITS | Encounter Summary ---
[place] [address] Care Team Providers Care Hand Glass Cutter Name Role Phone Unknown Primary Care Provider Unavailabl e Reason for Visit * Reason Comments Follow-up R knee pain and swel ling Encounter Details Date Type Department Care Team (Late st Contact Info) Description 01/19/2019 8:50 AM EDT Office [place] [address] Instability of right knee joint Social History [...] pain from overuse. 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 Fleming Date of surgery 06/06/2017 Reason for surgery Fix knee cap plastic TKA Grade 4 Pain in other KNEE Severe Back pain at this moment Moderate Satisfaction with Treatment Satisfied Choose Same Treatment Again Definitely yes [facility] Response 01/19/2019 KOOS JR Scores 57.14 Spine [facility] Response 01/19/2019 KOOS JR Scores 57.14 ASSESSMENT/PLAN: [...] arthritis ladder, attempting conservative therapy first with sdtg-uxn-qqheuus anti-inflammatories such as ibuprofen or naproxen along [...] leg documented in this encounter Care Teams Hand Glass Cutter Relationship Specialty Start Date End Date Unknown None PCP - General 12/17/18 03/06/20 documented as of this encounter
--- OUTSIDE RECORDS SUMMARY | 2024-04-08 10:04 | XMS_ITS | Clinical Summary ---
[place] [address] Care Team Providers Care Tool Setter Name Role Phone Teresa Field APRN Primary Care Provider Allergies Active Allergy Reactions Criticality Noted Date [...] Vaccines (1 - Tdap) 1994 Covid-19 Vaccine ( - 2023-2 5 season) 2024 Influenza (Flu) vaccine (1 o f 1 - Influenza standard series) 01/18/2024 Diabetes Screening (HgbA1C o r Glucose) Discontinued 06/17/2017, 05/29/2017, 02/23/2016, Additional history exists Medical Devices Implanted Type Area Customer Contact Representative Device Identifier Shelf Expiration Date Model / Serial / Lot Cement,Bne,Sma rtset,Ghv,40g ([id number]) - [id number] Implanted:Qty: 1 on 02/22/2016 by Dane Fleming MD at [facility] IMPLANTS Right: Knee DO NOT USE Depuy Medical Record Librarians Teacher - 3527 09/15/2018 0 / / [id number] Tray,Guillaume,Fb ,Tib,Bse,Sz7 ([id number]) (Autoreq) - [id number] Implanted:Qty: 1 on 02/22/2016 by Dane Fleming MD at [facility] IMPLANTS Right: Knee DO NOT USE Depuy Medical Record Librarians Teacher - 3527 09/15/2025 7 / / [id number] [place]rier,Attune,P s,Fem,Sz7,Rt ([id number]) (Autoreq) - [id number] Implanted:Qty: 1 on 02/22/2016 by Dane Fleming MD at [facility] IMPLANTS Right: Knee DO NOT USE Depuy Medical Record Librarians Teacher - 3527 08/16/2025 1504-03-07 7 / / [id number] Guillaume Brunson M dl,Dome,41mm ([id number]) (Autoreq) - [id number] Implanted:Qty: 1 on 02/22/2016 by Dane Fleming MD at [facility] IMPLANTS Right: Knee DO NOT USE Depuy Medical Record Librarians Teacher - 3527 10/16/2020 1 / / [id number] Inser,Guillaume,P s,Fb,Sz7,5mm ([id number]) (Autoreq) - [id number] Implanted:Qty: 1 on 02/22/2016 by Dane Fleming MD at [facility] IMPLANTS Right: Knee DO NOT USE Depuy Medical Record Librarians Teacher - 3527 08/16/2020 5 / / [id number] Inser,Bellaune,P s,Fb,Sz7,8mm ([id number]) (Autoreq) - [id number] Implanted:Qty: 1 on 06/16/2017 by Dane Fleming MD at [facility] IMPLANTS DO NOT USE Depuy Medical Record Librarians Teacher - 3527 01/16/2019 8 / / [id number] Procedures Procedure Name Priority Date/Time Associated Diagnosis Comments BASIC METABOLIC PANEL Routine 06/17/2017 4:19 AM EST from Last 3 Months or Most Recently Relevant to Health Maintenance Results * Basic Metabolic Panel (non-fasting) (06/17/2017 4:19 AM EST) [facility] Glucose 103 65 - 199 mg/dL [facility] Comment:Diabetes: >=200 mg/d L plus symptoms Blood Urea Nitrogen 10 10 - 20 mg/dL [facility] Creatinine 0.85 0.80 - 1.50 mg/dL [facility] Sodium 140 135 - 145 mmol/L [facility] Potassium 4.2 3.5 - 5.0 mmol/L [facility] Comment: Please note: ??Patients with WBC >100,000 may have falsely elevated Potassium levels. ??For accurate Potassium quantification in these patients send serum separator tube (gold top) for subsequent determinations. ??Contact the Clinical Chemistry Laboratory if there are any questions. Chloride 105 98 - 107 mmol/L [facility] Carbon Dioxide 22 22 - 31 mmol/L [facility] Anion Gap 13 5 - 15 mmol/L [facility] Calcium 8.7 8.5 - 10.5 mg/dL [facility] Est Glomerular Filtration Rate >60 >=60 [facility] Comment: The reported eGFR should be multiplied by 1.2 for patients. The MDRD is not an appropriate measure of renal function for patients with body mass extremes or in patients with acute kidney failure. http://StatusNet.Altruja/DHnkdep http://Apps4Pro/DHMCnkf Blood specimen (specimen) 06/17/2017 4:19 AM EST 06/17/2017 4:35 AM EST Narrative Resulting Agency Comment Spec In Lab Dane Fleming MD CHEMISTRY ORDERABLES [facility] [place] [address] from Last 3 Months or Most Recently Relevant to Health Maintenance Advance Directives Documents on File Type Date Recorded Patient Arborist Climber Expl anation Personal Arborist Climber 07/22/2017 4:37 PM ariana thu Advance Directives and [place] maldonado Will 02/23/2016 3:06 PM 01/12/16 * Full [...] Name Relationship Healthcare Agent Relationship Communication Ariana WongAmeena Maddox Spouse Health Care Agent Cookie Reynoso Mother First Alternate Health Care Agent Care Teams Tool Setter Relationship Specialty Start Date End Date Teresa Field, PUBLIC RELATIONS ACCOUNT EXECUTIVE [address] [facility] [facility], [place] [address] PCP - General Family Medicine 05/07/21
--- OUTSIDE RECORDS SUMMARY | 2024-04-08 10:04 | XMS_ITS | Encounter Summary ---
[place] [address] Care Team Providers Care Utility Operator Name Role Phone Anjum Leticia Coyle APRN Primary Care Provider Encounter Details Date Type Department Care Team (Latest Contact Info) Description 05/29/2017 1:00 PM EST Clinical [place] [address] Instability of knee joint, unspecified laterality Social [...] (Bezet) 424 ms MUSE SYSTEM Calculated P [place] 45 degrees MUSE SYSTEM Calculated R [place] 51 degrees MUSE SYSTEM Calculated T [place] 51 degrees MUSE SYSTEM INTERPRETATION Normal sinus [...] laterality documented in this encounter Care Teams Utility Operator Relationship Specialty Start Date End Date Leticia Valero APRN PCP - General Family Medicine 03/18/17 12/16/18 documented as of this encounter
--- OUTSIDE RECORDS SUMMARY | 2024-04-08 10:04 | XMS_ITS | Encounter Summary ---
[place] [address] Care Team Providers Care Sales Service Supervisor Name Role Phone MaddyTeresa monteiro MESERET Primary Care Provider [phone] Encounter Details Date Type Department Care Team (Late st Contact Info) Description 05/23/2021 [place] [address] Mercedez Martins APRN [facility] DR [place]OPAED[place] [address] Social History Tobacco Use Types Packs/Day Years [...] right documented in this encounter Care Teams Sales Service Supervisor Relationship Specialty Start Date End Date Teresa Field, SILK SCREEN CUTTER [address] [facility] [place] [place] [address] PCP - General Family Medicine 05/07/21 documented as of this encounter
--- OUTSIDE RECORDS SUMMARY | 2024-04-08 10:04 | XMS_ITS | Encounter Summary ---
Author Organization [facility] [place] [address] Care Team Providers Care Cap Maker Name Role Phone AnjumAnthonyLawrencemona Coyle APRN Primary Care Provider Reason for Visit * Auth/Cert Specialty Diagnoses / Procedures Referred By Delbert diaz Referred To Contact Diagnoses Knee instability Knee instability Procedures PRO REVISE KNEE JOINT REPLACE, 1 PART @TOTAL KNEE REVISION ARTHROPLASTY, ONE COMPONENT (WRVU 21.12) Referral ID Status Reason Start Date Expiration Date Visits Re quested Visits Authorized [id number] 1 Encounter Details Date Type Department Care Team (Latest Contact Info) Description 06/16/2017 8:12 AM EST - 06/17/2017 12:[address] [facility] Hospital Encounter [address] [place] [id number] Dane Chan MD [facility] [place] [address] Discharge Disposition: Home Social History Tobacco Use [...] Yvan Maddox Patient Age: 42 y.o. Language: Yi Race: White Ethnicity: Not nor Admit date: 06/16/2017 Discharge date and time: 06/17/2017 Attending Physician: Dane Chan MD Discharge Physician: Dane Chan MD Follow-up Recommendations for Providers: See discharge instructions for additional details. Future Appointments Date Time Provider Department Center 07/15/2017 9:15 AM [facility] DX ROOM 2 Xray [facility] 07/15/2017 10:10 AM Dane Chan MD [facility] [place] [facility] Inpatient Provider Contact Information: Dane Chan MD Orthopedics: [phone] After hours and weekends, call [facility] Electronic Prepress System Operator, , and have the Orthopedic resident paged. [...] bowel movement. You can also take an ujcs-wua-htmuzsy medication, Miralax if needed to combat constipation. [...] as much as possible. Call your doctor ([phone]) if you develop: 1. Fever greater than 100.5 2. Severe nausea or vomiting 3. Increasing pain that is not controlled by pain medications 4. Increasing redness, swelling, or drainage from incisions 5. Change in sensation FOLLOW-UP APPOINTMENTS: 1. You will have follow-up appointments at [facility] as indicated below in Future Appointment and Orders. 2. You will need to have x-rays prior to your follow-up appointment on 07/15/2017. Please come to Radiology, desk 3T, 1 hour BEFORE that appointment for those x-rays. Future Appointments Date Time Provider Department Center 07/15/2017 9:15 AM [facility] DX ROOM 2 Xray [facility] 07/15/2017 10:10 AM Dane Chan MD [facility] If you have questions or concerns: Friday through Friday, 8 AM - 5 PM, please call Dane Barakat MD's office at . If it is after 5 PM, the weekend, or holidays, please call and ask to speak with theOrthopedic resident on-call. Future Appointments and Orders Future Appointments Provider Department Dept Phone 07/15/2017 10:10 AM Dane Chan MD Orthopaedics at [place] [phone] Primary Care Provider: Leticia Valero APRN [phone] Discharge References/Attachments None documented in this encounter [...] bowel movement. You can also take an mmqp-hlq-vkyyhwp medication, Miralax if needed to combat constipation. [...] as much as possible. Call your doctor ([phone]) if you develop: 1. Fever greater than 100.5 2. Severe nausea or vomiting 3. Increasing pain that is not controlled by pain medications 4. Increasing redness, swelling, or drainage from incisions 5. Change in sensation FOLLOW-UP APPOINTMENTS: 1. You will have follow-up appointments at [facility] as indicated below in Future Appointment and Orders. 2. You will need to have x-rays prior to your follow-up appointment on 07/15/2017. Please come to Radiology, desk , 1 hour BEFORE that appointment for those x-rays. Future Appointments Date Time Provider Department Center 07/15/2017 9:15 AM [facility] DX ROOM 2 Xray [facility] 07/15/2017 10:10 AM Dane Chan MD [facility] [address] [place] [address] CLIN If you have questions or concerns: [...] ?? Follow up in 4-6 weeks with AP/Lateral/Amenia/Standing Alignment views of Knee Future Appointments Date Time Provider Department Center 07/15/2017 9:15 AM [facility] DX ROOM 2 Xray [facility] [...] Prakash and pt readied for transfer to [facility] via bed. Room is cleaning. * [...] below Christian Espinoza MD Orthopaedic Surgery Pager [phone] Future Appointments Date Time Provider Department Center 07/15/2017 9:15 AM [facility] DX ROOM 2 Xray [facility] [...] without an AD. 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 Assessment: Pt seen for PT evaluation [...] services (has outpatient appointment for Friday) Pager: [phone] JACE MONZON, PT 06/17/2017 Physical Therapy Rehabilitation [...] Chan MD - 06/16/2017 12:21 PM EST [facility] Operative Note Patient Name: Yvan Maddox : [id number] MR#: [id number] Case Date: 06/16/2017 Surgeon: Surgeon(s) and Role: [...] Implant Name Type Inv. Item Serial No. Poultry Feed Supervisor Lot No. LRB No. Used Action INSER,ATTUNE,PS,FB,SZ7,8MM ([id number]) (AUTOREQ) - [id number] IMPLANTS INSER,ATTUNE,PS,FB,SZ7,8MM ([id number]) (AUTOREQ) [facility] [id number] Right 1 Implanted Infection Bundle used? N/A [...] IMPLANTABLE DEVICES SCAN 06/16/2017 12:00 AM EST DIRECTOR OF RECREATION THERAPY SCAN 06/16/2017 12:00 AM EST documented in this encounter Results * (ABNORMAL) Differential, Automated (06/17/2017 4:19 AM EST) Neutrophil % 85.8 % [facility] Neutrophil Absolute 17.15(H) 1.70 - 6.10 x10(3)/mc L [facility] Lymph % 8.7 % [facility] Lymphocytes Abs 1.7 0.9 - 3.2 x10(3)/mc L [facility] Monocyte % 4.7 % [facility] Monocyte Abs 0.9 0.3 - 0.9 x10(3)/mc L [facility] Eos % 0.0 % [facility] Eosinophils Abs 0.0 0.0 - 0.4 x10(3)/mc L [facility] Basophil % 0.2 % [facility] Baso Absolute 0.0 0.0 - 0.1 x10(3)/mc L [facility] Immature Gran % 0.60 % [facility] Comment: Immature granulocytes(IG's)percentage and absolute count will include metamyelocytes, myelocytes, and promyelocytes. Blood smears from CBCs yielding IG's will be scanned manually for concordance. If this scan disagrees with the automated IG or if promyelocytes are noted, a manual differential will be performed. Immature Gran Absolute 0.12(H) 0.00 - 0.04 x10(3)/ L [facility] Blood specimen (specimen) 06/17/2017 4:19 AM EST 06/17/2017 4:35 AM EST Narrative Resulting Agency Comment Spec In Lab Dane Chan MD HEMATOLOGY ORDERABLE S [facility] [place] [address] * (ABNORMAL) Hemogram (06/17/2017 4:19 AM EST) White Blood Cell 20.0(H) 4.0 - 9.5 x10(3)/ L [facility] Red Blood Cell 4.49(L) 4.58 - 5.54 x10(6)/[facility] Hemoglobin 13.4(L) 13.7 - 16.5 gm/dL [facility] Hematocrit 39.8(L) 40.5 - 48.5 % [facility] Mean Cell Volume 88.6 82.9 - 93.1 fL [facility] Mean Cell Hemoglobin 29.8 27.5 - 32.1 pg [facility] Mean Cell Hemoglobin Concentration 33.7 32.0 - 35.7 gm/dL [facility] Platelet 239 145 - 357 x10(3)/mc L [facility] RDW Standard Deviation 44.4 36.0 - 45.0 [facility] RDW coefficient of variation 13.6 11.4 - 13.8 % [facility] Mean Platelet Volume 10.5 7.6 - 12.9 [facility] NRBC% auto 0.0 % [facility] NRBC Absolute 0.000 0.000 - 0.000 x10(3)/ L [facility] Blood specimen (specimen) 06/17/2017 4:19 AM EST 06/17/2017 4:35 AM EST Narrative Resulting Agency Comment Spec In Lab Dane Chan MD HEMATOLOGY ORDERABLE S [facility] [place] [address] * Basic Metabolic Panel (non-fasting) (06/17/2017 4:19 AM EST) Glucose 103 65 - 199 mg/dL [facility] Comment:Diabetes: >=200 mg/d L plus symptoms Blood Urea Nitrogen 10 10 - 20 mg/dL [facility] Creatinine 0.85 0.80 - 1.50 mg/dL [facility] Sodium 140 135 - 145 mmol/L [facility] Potassium 4.2 3.5 - 5.0 mmol/L [facility] Comment: Please note: ??Patients with WBC >100,000 may have falsely elevated Potassium levels. ??For accurate Potassium quantification in these patients send serum separator tube (gold top) for subsequent determinations. ??Contact the Clinical Chemistry Laboratory if there are any questions. Chloride 105 98 - 107 mmol/L [facility] Carbon Dioxide 22 22 - 31 mmol/L [facility] Anion Gap 13 5 - 15 mmol/L [facility] Calcium 8.7 8.5 - 10.5 mg/dL [facility] Est Glomerular Filtration Rate >60 >=60 [facility] Comment: The reported eGFR should be multiplied by 1.2 for patients. The MDRD is not an appropriate measure of renal function for patients with body mass extremes or in patients with acute kidney failure. http://In-Store [employer] Company.Rentlytics/DHnkdep http://In-Store [employer].Rentlytics/DHMCnkf Blood specimen (specimen) 06/17/2017 4:19 AM EST 06/17/2017 4:35 AM EST Narrative Resulting Agency Comment Spec In Lab Dane Chan MD CHEMISTRY ORDERABLES [facility] [place] [address] * Cell Count Body Fluid Knee, Right (06/16/2017 11:36 AM EST) Body Fluid Source Knee, Right [facility] Color, Fld Yellow [facility] Appearance, Fld Clear [facility] WBC Count, Fld 124 /mcl [facility] Comment: Guideline listed below apply [...] chart. Polymorphonuclear cells BF % 13 % [facility] Comment: Polymorphonuclear cell percent and absolute values may contain Neutrophils, Eosinophils, and Basophils. Body fluid smear will be scanned manually for concordance. Mononuclear cells BF % 87 % [facility] Comment: Mononuclear cell percent and absolute values may contain Lymphocytes and Monocytes. Body fluid smear will be scanned manually for concordance. Polymorphonuclear cells BF ABS 16 /[facility] Comment: Polymorphonuclear cell percent and absolute values may contain Neutrophils, Eosinophils, and Basophils. Body fluid smear will be scanned manually for concordance. Mononuclear cells BF ABS 108 /[facility] Comment: Mononuclear cell percent and absolute values may contain Lymphocytes and Monocytes. Body fluid smear will be scanned manually for concordance. Specimen from lower limb (specimen) 06/16/2017 11:36 AM EST 06/16/2017 11:40 AM EST Narrative Resulting Agency Comment Spec In Lab Dane Chan MD BODY FLUIDS AND STOO LS ORDERABLES [facility] [place] [address] * SCAN DOC: IMPLANTABLE DEVICES (06/16/2017 12:00 AM EST) Narrative 06/16/2017 12:00 AM EST Ordered by an unspecified provider. Scanning Provider MEDIA MGR SCAN EXT O RDR/RSLT * SCAN DOC: DIRECTOR OF RECREATION THERAPY (06/16/2017 12:00 AM EST) Anatomical Region Laterality [...] 06/16/2017 10:20 AM EST 1 mg multivitamin Zlhf-Ns-AE-Min (THERAPEUTIC-M) 27-0.4 mg tablet 1 tablet 1 [...] Provider: Thao Burleson, JOSE DE JESUS) multivitamin Llgp-Uk-PM-Min (THERAPEUTIC-M) 27-0.4 mg tablet 1 tablet 1 [...] Unit) documented in this encounter Care Teams Cap Maker Relationship Specialty Start Date End Date Leticia Valero, GLUER MACHINE SETUP OPERATOR PCP - General Family Medicine 03/18/17 12/16/18 documented as of this encounter
--- OUTSIDE RECORDS SUMMARY | 2024-04-08 10:04 | XMS_ITS | Encounter Summary ---
[place] [address] Care Team Providers Care Ship'S Cook Name Role Phone Leticia Valero APRN Primary Care Provider Encounter Details Date Type Department Care Team (Late st Contact Info) Description 06/27/2017 [place] [address] Cara Alonzo RN DEPT OF ORTHOPAEDICS Social [...] been falling asleep but wakesup in the user interface developer. Patient Teaching: Reviewed s/s to report. Instructed [...] on filedocumented in this encounter Care Teams Ship'S Cook Relationship Specialty Start Date End Date Leticia Valero APRN PCP - General Family Medicine 03/18/17 12/16/18 documented as of this encounter
--- OUTSIDE RECORDS SUMMARY | 2024-04-08 10:04 | XMS_ITS | Encounter Summary ---
Author Organization [facility] [place] [address] Care Team Providers Care Reinsurance Analyst Name Role Phone Leticia Valero APRN Primary Care Provider Encounter Details Date Type Department Care Team (Latest Contact Info) Description 07/21/2017 1:43 PM EST - 07/21/2017 11:59 PM [facility] Hospital Encounter XRay at [address] [place] [address] Mercedez Martins APRN [facility] [place] [address] Status post right knee replacement Discharge Disposition: [...] XR Knee Standing Alignment AP Lat [place] Right (07/21/2017 2:01 PM EST) Anatomical Region [...] replacement documented in this encounter Care Teams Reinsurance Analyst Relationship Specialty Start Date End Date Leticia Valero APRN PCP - General Family Medicine 03/18/17 12/16/18 documented as of this encounter
--- OUTSIDE RECORDS SUMMARY | 2024-04-08 10:04 | XMS_ITS | Encounter Summary ---
[place] [address] Care Team Providers Care Oil And Gas Principal Name Role Phone AnjumLeticia Leonides CARL Primary Care Provider Reason for Visit * Reason Comments Aftercare Of Tjr Right TKA REV DOS Encounter Details Date Type Department Care Team (Late st Contact Info) Description 07/21/2017 2:40 PM EST Office [place] [address] Dane Fleming MD [facility] [address] [place] [address] Instability of right knee joint Social History [...] leg documented in this encounter Care Teams Oil And Gas Principal Relationship Specialty Start Date End Date Leticia Valero APRN PCP - General Family Medicine 03/18/17 12/16/18 documented as of this encounter
--- OUTSIDE RECORDS SUMMARY | 2024-04-08 10:04 | XMS_ITS | Encounter Summary ---
Author Organization [facility] [place] [address] Care Team Providers Care Beehive Kiln Supervisor Name Role Phone Unknown Primary Care Provider Unavailabl e Encounter Details Date Type Department Care Team (Latest Contact Info) Description 01/19/2019 7:45 AM EDT - 01/19/2019 11:59 PM EDT Hospital Encounter XRay at [address] [place] [address] Dane Fleming MD [facility] [place] [address] Right knee pain, unspecified chronicity Discharge Disposition: [...] chronicity documented in this encounter Care Teams Beehive Kiln Supervisor Relationship Specialty Start Date End Date Unknown None PCP - General 12/17/18 03/06/20 documented as of this encounter
--- OUTSIDE RECORDS SUMMARY | 2024-04-08 10:04 | XMS_ITS | Encounter Summary ---
[place] [address] Care Team Providers Care Trestleman Name Role Phone Unknown Primary Care Provider Unavailabl e Encounter Details Date Type Department Care Team (Late st Contact Info) Description 09/03/2019 Orders [place] [address] [facility] [place] [address] Instability of right knee joint; Status post [...] (02/22/16) documented in this encounter Care Teams Trestleman Relationship Specialty Start Date End Date Unknown None PCP - General 12/17/18 03/06/20 documented as of this encounter
--- OUTSIDE RECORDS SUMMARY | 2024-04-08 10:04 | XMS_ITS | Encounter Summary ---
[place] [address] Care Team Providers Care Satellite Communications Engineer Name Role Phone Anjum Leticia Coyle APRN Primary Care Provider Reason for Visit * Auth/Cert Specialty Diagnoses / Procedures Referred By Delbert diaz Referred To Contact Diagnoses Knee instability Knee instability Procedures PRO REVISE KNEE JOINT REPLACE, 1 PART @TOTAL KNEE REVISION ARTHROPLASTY, ONE COMPONENT (WRVU 21.12) Referral ID Status Reason Start Date Expiration Date Visits Re quested Visits Authorized [id number] 1 1 Encounter Details Date Type Department Care Team (Late st Contact Info) Description 06/16/2017 10:58 AM EST Anesthesia Event [place] [address] Jennifer Luu MD [facility] [place] [address] Christiano Phillips MD [facility] [place] [address] Anesthesia Record Procedure Summary Procedure Name Responsible [...] without issue. VSS. Full report given to TRUCKER. 1617 Meds Name Total Propofol 300 mg [...] cephalic vein (lateral side of arm), left; find-fqz-svecsw catheter system; 18 gauge, 1 in length; Tyra Prince RN ; distraction, intradermal injection; 02/21/21 (LDA Cleanup utility RA#[id number]); 1650 (LDA Cleanup utility RA#[id number]) 06/16/17 0851 by Laura Landis RN 02/21/21 1650 by Syed Gutierrez Incision [...] Luu MD - 06/16/2017 4:18 PM EST [facility] Department of Anesthesiology Post-procedure Note Patient: Yvan Maddox Procedure Summary Date Anesthesia Start Anesthesia Stop Room / Location 06/16/17 1058 [id number] [facility] OR 10 / [facility] MAIN OR Procedure Diagnosis Surgeon Responsible Provider @TOTAL KNEE REVISION ARTHROPLASTY, ONE COMPONENT (WRVU 21.12) (Right Knee); MODIFIER: ATTUNE STABILIZED FIXED PLATFORM DEPUY (Right ) (Knee instability) Dane Fleming MD Hillier, Simon C, MD All Anesthesia Providers: Anesthesiologist: Jennifer Luu MD BRIDGE PAINTER: Tatum Callejas CRNA Most Recent Vitals: 06/16/17 1545 BP: 115/73 Pulse: 65 Resp: 21 Temp: SpO2: 96% Pain Patient Location: PACU/[facility] Level of Consciousness: Awake and Alert Pain [...] w dextrose 2 ml Events/Notes Events: None Resident/BRIDGE PAINTER: TATUM CALLEJAS Second Resident/BRIDGE PAINTER: Fellow: Attending Physician: JENNIFER LUU ~~~~~~~~~~~~~~~~~~~~~~~~~~~~~~~~~~~~~~~~~~~~~~~~~~~~~~~~~~~~ * [...] Length: 10 cm Gauge: 21 Needle Type: Y-tayxn-ponse Medication injection made incrementally with aspirations. Nerve [...] ARTHROPLASTY performed by Dane Fleming MD at [facility] MAIN OR Social History Substance Use Topics [...] w dextrose 2 ml Events/Notes Events: None Resident/BRIDGE PAINTER: TATUM CALLEJAS Second Resident/BRIDGE PAINTER: Fellow: Attending Physician: JENNIFER LUU ~~~~~~~~~~~~~~~~~~~~~~~~~~~~~~~~~~~~~~~~~~~~~~~~~~~~~~~~~~~~ ANESTHESIA BLOCK Routine 06/16/2017 11:1 7 AM EST Procedure Note - Tatum Callejas, BRIDGE PAINTER - 06/16/2017 11:17 AM ESTThis note is [...] Length: 10 cm Gauge: 21 Needle Type: R-ahzrm-zipfn Medication injection made incrementally with aspirations. Nerve [...] mL/hr documented in this encounter Care Teams Satellite Communications Engineer Relationship Specialty Start Date End Date Leticia Valero APRN PCP - General Family Medicine 03/18/17 12/16/18 documented as of this encounter
--- OUTSIDE RECORDS SUMMARY | 2024-04-08 10:04 | XMS_ITS | Encounter Summary ---
[place] [address] Care Team Providers Care Superintendent Operating Name Role Phone Unknown Primary Care Provider Unavailabl e Reason for Visit * Reason Onset Date Comments Appointment 09/06/2019 Encounter Details Date Type Department Care Team (Late st Contact Info) Description 09/06/2019 [place] [address] Jenny Perez PA [facility] DR [place] [address] Appointment Social History Tobacco Use Types Packs/Day [...] to have Labs & XR completed @ [facility]. Once images and labs have been completed [...] on filedocumented in this encounter Care Teams Superintendent Operating Relationship Specialty Start Date End Date Unknown None PCP - General 12/17/18 03/06/20 documented as of this encounter
--- OUTSIDE RECORDS SUMMARY | 2024-04-08 10:04 | XMS_ITS | Encounter Summary ---
[place] [address] Care Team Providers Care Wellness Director Name Role Phone Leticia Valero APRN Primary Care Provider Reason for Referral * Physical Therapy (Routine) - Specialty Diagnoses / Procedures Referred By Delbert diaz Referred To Contact Physical Therapy Diagnoses Primary osteoarthritis of right knee Dane Fleming MD [facility] [place] [address] Referral ID Status Reason Start Date Expiration Date V isits Requested Visits Authorized [id number] Evaluate and Treat 05/29/2017 11/25/2017 20 20 Encounter Details Date Type Department Care Team (Late st Contact Info) Description 05/29/2017 Orders [place] [address] Dane Fleming MD [facility] [place] [address] Primary osteoarthritis of right knee Social History [...] leg documented in this encounter Care Teams Wellness Director Relationship Specialty Start Date End Date Leticia Valero APRN PCP - General Family Medicine 03/18/17 12/16/18 documented as of this encounter
--- OUTSIDE RECORDS SUMMARY | 2024-04-08 10:04 | XMS_ITS | Encounter Summary ---
[place] [address] Care Team Providers Care Measurement Operator Name Role Phone Unknown Primary Care Provider Unavailabl e Reason for Visit * Reason Onset Date Comments Other 08/27/2019 Encounter Details Date Type Department Care Team (Late st Contact Info) Description 08/27/2019 Telephone [place] [address] Eleuterio Raymond Other Social History Tobacco Use [...] on filedocumented in this encounter Care Teams Measurement Operator Relationship Specialty Start Date End Date Unknown None PCP - General 12/17/18 03/06/20 documented as of this encounter
--- OUTSIDE RECORDS SUMMARY | 2024-04-08 10:04 | XMS_ITS | Encounter Summary ---
Author Organization [facility] [place] [address] Care Team Providers Care Farm Machinery Set Up Mechanic Name Role Phone Anjum Leticia Coyle APRN Primary Care Provider Reason for Visit * Auth/Cert Specialty Diagnoses / Procedures Referred By Delbert diaz Referred To Contact Diagnoses Knee instability Knee instability Procedures PRO REVISE KNEE JOINT REPLACE, 1 PART @TOTAL KNEE REVISION ARTHROPLASTY, ONE COMPONENT (WRVU 21.12) Referral ID Status Reason Start Date Expiration Date Visits Re quested Visits Authorized [id number] 1 1 Encounter Details Date Type Department Care Team (Late st Contact Info) Description 06/16/2017 9:58 AM EST - 06/16/2017 12:51 PM EST Surgery Main [place] [address] Dane Chan MD [facility] [place] [address] @TOTAL KNEE REVISION ARTHROPLASTY, ONE COMPONENT (WRVU [...] Yvan Maddox Patient Age: 42 y.o. Language: Slovak Race: White Ethnicity: Not nor Admit date: 06/16/2017 Discharge date and time: 06/17/2017 Attending Physician: Dane Chan MD Discharge Physician: Dane Chan MD Follow-up Recommendations for Providers: See discharge instructions for additional details. Future Appointments Date Time Provider Department Center 07/15/2017 9:15 AM [facility] 07/15/2017 10:10 AM Dane Chan MD [facility] [address] [place] [address] CLIN Inpatient Provider Contact Information: Dane Chan MD Orthopedics: [phone] After hours and weekends, call [facility] Shuttle Operator, , and have the Orthopedic resident [...] bowel movement. You can also take an nfcr-nfd-thhwjae medication, Miralax if needed to combat constipation. [...] as much as possible. Call your doctor ([phone]) if you develop: 1. Fever greater than 100.5 2. Severe nausea or vomiting 3. Increasing pain that is not controlled by pain medications 4. Increasing redness, swelling, or drainage from incisions 5. Change in sensation FOLLOW-UP APPOINTMENTS: 1. You will have follow-up appointments at [facility] as indicated below in Future Appointment and Orders. 2. You will need to have x-rays prior to your follow-up appointment on 07/15/2017. Please come to Radiology, desk 3T, 1 hour BEFORE that appointment for those x-rays. Future Appointments Date Time Provider Department Center 07/15/2017 9:15 AM [facility] DX ROOM 2 [facility] 07/15/2017 10:10 AM Dane Chan MD [facility] [address] [place] [address] If you have questions or concerns: Friday through Friday, 8 AM - 5 PM, please call Dane Barakat MD's office at . If it is after 5 PM, the weekend, or holidays, please call and ask to speak with theOrthopedic resident on-call. Future Appointments and Orders Future Appointments Provider Department Dept Phone 07/15/2017 10:10 AM Dane Chan MD Orthopaedics at [place] [phone] Primary Care Provider: Leticia Valero, MESERET [phone] Discharge References/Attachments None documented in this encounter [...] bowel movement. You can also take an navj-zsk-mogdxib medication, Miralax if needed to combat constipation. [...] as much as possible. Call your doctor ([phone]) if you develop: 1. Fever greater than 100.5 2. Severe nausea or vomiting 3. Increasing pain that is not controlled by pain medications 4. Increasing redness, swelling, or drainage from incisions 5. Change in sensation FOLLOW-UP APPOINTMENTS: 1. You will have follow-up appointments at [facility] as indicated below in Future Appointment and Orders. 2. You will need to have x-rays prior to your follow-up appointment on 07/15/2017. Please come to Radiology, desk 3T, 1 hour BEFORE that appointment for those x-rays. Future Appointments Date Time Provider Department Center 07/15/2017 9:15 AM [facility] DX ROOM 2 [facility] 07/15/2017 10:10 AM Dane Chan MD [facility] [place] CLIN If you have questions or concerns: [...] Patient discharged to home with family. * Zcak Valerio - 06/17/2017 6:36 AM EST Orthopaedic [...] ?? Follow up in 4-6 weeks with AP/Lateral/[place]/Standing Alignment views of Knee Future Appointments Date Time Provider Department Center 07/15/2017 9:15 AM [facility] DX ROOM 2 [facility] 07/15/2017 10:10 AM Dane Chan MD [facility] [address] [place] [address] CLIN * Damaris Darling RN - 06/16/2017 [...] Prakash and pt readied for transfer to [facility] via bed. Room is cleaning. * [...] below Christian Espinoza MD Orthopaedic Surgery Pager [phone] Future Appointments Date Time Provider Department Center 07/15/2017 9:15 AM [facility] DX ROOM 2 MH Xray [facility] [...] without an AD. 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 Assessment: Pt seen for PT evaluation [...] services (has outpatient appointment for Friday) Pager: [phone] JACE MONZON, PT 06/17/2017 Physical Therapy Rehabilitation [...] Chan MD - 06/16/2017 12:21 PM EST [facility] Operative Note Patient Name: Yvan Maddox : [id number] MR#: [id number] Case Date: 06/16/2017 Surgeon: Surgeon(s) and Role: [...] Implant Name Type Inv. Item Serial No. Janitor Lot No. LRB No. Used Action INSER,ATTUNE,PS,FB,SZ7,8MM ([id number]) (AUTOREQ) - [id number] IMPLANTS INSER,ATTUNE,PS,FB,SZ7,8MM ([id number]) (AUTOREQ) [facility] Heart Sample Maker - [id number] Right 1 Implanted Infection Bundle used? N/A [...] IMPLANTABLE DEVICES SCAN 06/16/2017 12:00 AM EST AUDIT SPECIALIST SCAN 06/16/2017 12:00 AM EST documented in this encounter Results * (ABNORMAL) Differential, Automated (06/17/2017 4:19 AM EST) Neutrophil % 85.8 % [facility] Neutrophil Absolute 17.15(H) 1.70 - 6.10 x10(3)/mc L [facility] Lymph % 8.7 % [facility] Lymphocytes Abs 1.7 0.9 - 3.2 x10(3)/mc L [facility] Monocyte % 4.7 % [facility] Monocyte Abs 0.9 0.3 - 0.9 x10(3)/mc L [facility] Eos % 0.0 % [facility] Eosinophils Abs 0.0 0.0 - 0.4 x10(3)/mc L [facility] Basophil % 0.2 % [facility] Baso Absolute 0.0 0.0 - 0.1 x10(3)/mc L [facility] Immature Gran % 0.60 % [facility] Comment: Immature granulocytes(IG's)percentage and absolute count will include metamyelocytes, myelocytes, and promyelocytes. Blood smears from CBCs yielding IG's will be scanned manually for concordance. If this scan disagrees with the automated IG or if promyelocytes are noted, a manual differential will be performed. Immature Gran Absolute 0.12(H) 0.00 - 0.04 x10(3)/mc L [facility] Blood specimen (specimen) 06/17/2017 4:19 AM EST 06/17/2017 4:35 AM EST Narrative Resulting Agency Comment Spec In Lab Dane Chan MD HEMATOLOGY ORDERABLE S [facility] [place] [address] * (ABNORMAL) Hemogram (06/17/2017 4:19 AM EST) White Blood Cell 20.0(H) 4.0 - 9.5 x10(3)/mc L [facility] Red Blood Cell 4.49(L) 4.58 - 5.54 x10(6)/mc L [facility] Hemoglobin 13.4(L) 13.7 - 16.5 gm/dL [facility] Hematocrit 39.8(L) 40.5 - 48.5 % [facility] Mean Cell Volume 88.6 82.9 - 93.1 fL [facility] Mean Cell Hemoglobin 29.8 27.5 - 32.1 pg [facility] Mean Cell Hemoglobin Concentration 33.7 32.0 - 35.7 gm/dL [facility] Platelet 239 145 - 357 x10(3)/mc L [facility] RDW Standard Deviation 44.4 36.0 - 45.0 fL [facility] RDW coefficient of variation 13.6 11.4 - 13.8 % [facility] Mean Platelet Volume 10.5 7.6 - 12.9 fL [facility] NRBC% auto 0.0 % [facility] NRBC Absolute 0.000 0.000 - 0.000 x10(3)/mc L [facility] Blood specimen (specimen) 06/17/2017 4:19 AM EST 06/17/2017 4:35 AM EST Narrative Resulting Agency Comment Spec In Lab Dane Chan MD HEMATOLOGY ORDERABLE S [facility] [place] [address] * Basic Metabolic Panel (non-fasting) (06/17/2017 4:19 AM EST) Glucose 103 65 - 199 mg/dL [facility] Comment:Diabetes: >=200 mg/d L plus symptoms Blood Urea Nitrogen 10 10 - 20 mg/dL [facility] Creatinine 0.85 0.80 - 1.50 mg/dL [facility] Sodium 140 135 - 145 mmol/L [facility] Potassium 4.2 3.5 - 5.0 mmol/L [facility] Comment: Please note: ??Patients with WBC >100,000 may have falsely elevated Potassium levels. ??For accurate Potassium quantification in these patients send serum separator tube (gold top) for subsequent determinations. ??Contact the Clinical Chemistry Laboratory if there are any questions. Chloride 105 98 - 107 mmol/L [facility] Carbon Dioxide 22 22 - 31 mmol/L [facility] Anion Gap 13 5 - 15 mmol/L [facility] Calcium 8.7 8.5 - 10.5 mg/dL [facility] Est Glomerular Filtration Rate >60 >=60 [facility] Comment: The reported eGFR should be multiplied by 1.2 for patients. The MDRD is not an appropriate measure of renal function for patients with body mass extremes or in patients with acute kidney failure. http://[employer]/DHnkdep http://[employer]/DHMCnkf Blood specimen (specimen) 06/17/2017 4:19 AM EST 06/17/2017 4:35 AM EST Narrative Resulting Agency Comment Spec In Lab Dane Chan MD [place] [address] * Cell Count Body Fluid Knee, Right (06/16/2017 11:36 AM EST) Body Fluid Source Knee, Right [facility] Color, Fld Yellow [facility] Appearance, Fld Clear [facility] WBC Count, Fld 124 /mcl [facility] Comment: Guideline listed below apply [...] chart. Polymorphonuclear cells BF % 13 % [facility] Comment: Polymorphonuclear cell percent and absolute values may contain Neutrophils, Eosinophils, and Basophils. Body fluid smear will be scanned manually for concordance. Mononuclear cells BF % 87 % [facility] Comment: Mononuclear cell percent and absolute values may contain Lymphocytes and Monocytes. Body fluid smear will be scanned manually for concordance. Polymorphonuclear cells BF ABS 16 /[facility] Comment: Polymorphonuclear cell percent and absolute values may contain Neutrophils, Eosinophils, and Basophils. Body fluid smear will be scanned manually for concordance. Mononuclear cells BF ABS 108 /[facility] Comment: Mononuclear cell percent and absolute values may contain Lymphocytes and Monocytes. Body fluid smear will be scanned manually for concordance. Specimen from lower limb (specimen) 06/16/2017 11:36 AM EST 06/16/2017 11:40 AM EST Narrative Resulting Agency Comment Spec In Lab Dane Chan MD BODY FLUIDS AND STOO LS ORDERABLES [facility] [place] [address] * SCAN DOC: IMPLANTABLE DEVICES (06/16/2017 12:00 AM EST) Narrative 06/16/2017 12:00 AM EST Ordered by an unspecified provider. Scanning Provider MEDIA MGR SCAN EXT O RDR/RSLT * SCAN DOC: AUDIT SPECIALIST (06/16/2017 12:00 AM EST) Anatomical Region Laterality [...] EST 30 mg 19- Surgical Site multivitamin Mwxy-Ev-EV-Min (THERAPEUTIC-M) 27-0.4 mg tablet 1 tablet 1 [...] Provider: Thao Burleson, JOSE DE JESUS) multivitamin Hxob-Rj-YV-Min (THERAPEUTIC-M) 27-0.4 mg tablet 1 tablet 1 [...] Unit) documented in this encounter Care Teams Farm Machinery Set Up Mechanic Relationship Specialty Start Date End Date Leticia Valero APRN PCP - General Family Medicine 03/18/17 12/16/18 documented as of this encounter
--- OUTSIDE RECORDS SUMMARY | 2024-04-08 10:04 | XMS_ITS | Encounter Summary ---
Author Organization [facility] [place] [address] Care Team Providers Care Supervisor Public Message Service Name Role Phone None Primary Care Provider Unavailabl e Reason for Visit * Reason Comments Follow Up Surgery right TKA revision D OS 06/16/17 (Bernadette) painful, and now leg keeps going numb Encounter Details Date Type Department Care Team (Late st Contact Info) Description 03/07/2020 4:00 PM EDT Office [place] [address] Dane Fleming MD [facility] [place] [address] Jenny Perez PA [facility] [place] [address] Instability of right knee joint Social History [...] the metal move. 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 Questionnaire Responses: [facility] Surgical Postop Visit 03/07/2020 PROMIS-10 General Health [...] knee surgery Yes [facility] was ER [facility] Date of ER visit 03/17/2018 Reason for ER visit Swelling, pain, and hotness Admitted to hospital since recent ortho surgery Yes [facility] revision Date of admission 06/06/2018 Discharge date 06/06/2018 Reason you went to hospital Right knee revision Additional surgery on same body part Yes [facility] Surgeon Date of surgery 06/06/2017 Reason for surgery Revision TKA Grade 2 Pain in other KNEE Moderate Back pain at this moment Very mild Satisfaction with Treatment Dissatisfied Choose Same Treatment Again Definitely no Orthopeadics [facility] Response 03/07/2020 KOOS JR Scores 54.84 Spine [facility] Response 03/07/2020 KOOS JR Scores 54.84 ASSESSMENT/PLAN: [...] leg documented in this encounter Care Teams Supervisor Public Message Service Relationship Specialty Start Date End Date None None PCP - General 03/07/20 05/06/21 documented as of this encounter
--- OUTSIDE RECORDS SUMMARY | 2024-04-08 10:04 | XMS_ITS | Encounter Summary ---
[place] [address] Care Team Providers Care Strawberry Grower Name Role Phone Anjum Leticia Coyle APRN Primary Care Provider Reason for Visit * Reason Onset Date Comments Medication Refill 06/23/2017 Encounter Details Date Type Department Care Team (Late st Contact Info) Description 06/23/2017 Refill [place] [address] Camille Alonzo RN Social History Tobacco Use [...] his pain allows. Prescription sent electronically to [facility] in [facility] by Dr. Fleming The patient knows how to contact orthopaedics if any further questions or concerns occur. documented in this encounter Plan of Treatment Not on file documented as of this encounter Visit Diagnoses Not on filedocumented in this encounter Care Teams Strawberry Grower Relationship Specialty Start Date End Date Leticia Valero APRN PCP - General Family Medicine 03/18/17 12/16/18 documented as of this encounter
--- OUTSIDE RECORDS SUMMARY | 2024-04-08 10:04 | XMS_ITS | Encounter Summary ---
[place] [address] Care Team Providers Care Sales And Leasing Agent Name Role Phone AnjumLeticia MESERET Primary Care Provider Reason for Visit * Reason Onset Date Comments Questions 09/23/2017 Encounter Details Date Type Department Care Team (Late st Contact Info) Description 09/23/2017 Telephone [place] [address] Dane Fleming MD [facility] [place] [address] Questions Social History Tobacco Use Types Packs/Day [...] to reschedule. You can call Yvan at [phone] to discuss further. documented in this encounter Plan of Treatment Not on file documented as of this encounter Visit Diagnoses Not on filedocumented in this encounter Care Teams Sales And Leasing Agent Relationship Specialty Start Date End Date Leticia Valero APRN PCP - General Family Medicine 03/18/17 12/16/18 documented as of this encounter
--- OUTSIDE RECORDS SUMMARY | 2024-04-08 10:04 | XMS_ITS | Encounter Summary ---
[place] [address] Care Team Providers Care Nursing Faculty Name Role Phone Unknown Primary Care Provider Unavailabl e Encounter Details Date Type Department Care Team (Late st Contact Info) Description 02/08/2020 Telephone [place] [address] Flory Painter RN Social History Tobacco Use [...] on filedocumented in this encounter Care Teams Nursing Faculty Relationship Specialty Start Date End Date Unknown None PCP - General 12/17/18 03/06/20 documented as of this encounter
--- OUTSIDE RECORDS SUMMARY | 2024-04-08 10:04 | XMS_ITS | Encounter Summary ---
Author Organization [facility] [place] [address] Care Team Providers Care Director Of Publications Name Role Phone None Primary Care Provider Unavailabl e Encounter Details Date Type Department Care Team (Latest Contact Info) Description 03/07/2020 2:49 PM EDT - 03/07/2020 11:59 PM EDT Hospital Encounter XRay at [address] [place] [address] Dane Fleming MD [facility] [place] [address] History of total knee replacement, right Discharge [...] please contact the number below. ? Narrative 03/07/2020 3:16 PM EDT EXAMINATION: XR [...] right documented in this encounter Care Teams Director Of Publications Relationship Specialty Start Date End Date None None PCP - General 03/07/20 05/06/21 documented as of this encounter
--- OUTSIDE RECORDS SUMMARY | 2024-04-08 10:05 | XMS_ITS | Encounter Summary ---
Author Organization [facility] [place] [address] Care Team Providers Care Health Outcomes Liaison Name Role Phone Jeff Lane MD Primary Care Provider [phone] Reason for Visit * Auth/Cert Specialty Diagnoses / Procedures Referred By Delbert diaz Referred To Contact Diagnoses Knee pain Right knee degenerative arthritis RIGHT KNEE DEGENERATIVE OA Procedures PRO TOTAL KNEE ARTHROPLASTY @TOTAL KNEE ARTHROPLASTY Referral ID Status Reason Start Date Expiration Date Visits Re quested Visits Authorized [id number] 1 1 Encounter Details Date Type Department Care Team (Late st Contact Info) Description 02/22/2016 7:30 AM EDT - 02/22/2016 10:28 AM EDT Surgery [place] [id number] Dane Chan MD [facility] [place] [address] TOTAL KNEE ARTHROPLASTY (WRVU 19.6) Social History [...] Yvan Maddox Patient Age: 41 y.o. Language: Persian Race: White Ethnicity: Not nor Admit date: 02/22/2016 Discharge date and time: 02/23/2016 Attending Physician: Dane Chan MD Discharge Physician: Dane Chan MD Follow-up Recommendations for Providers: See discharge instructions for additional details. Future Appointments Date Time Provider Department Center 03/26/2016 2:00 PM [facility] [place] [facility] 03/26/2016 3:00 PM Dane Chan MD [facility] [place] [facility] Inpatient Provider Contact Information: Dane Chan MD Orthopedics: [phone] After hours and weekends, call [facility] Well Drill Operator, , and have the Orthopedic resident [...] bowel movement. You can also take an xtbb-xtq-ewzqlgl medication, Miralax if needed to combat constipation. [...] 1. You will have follow-up appointments at [facility] as indicated below in Future Appointment and Orders. 2. You will need to have x-rays prior to your follow-up appointment. Please come to Radiology, [facility], 1 hour BEFORE that appointment for those x-rays. Future Appointments Date Time Provider Department Center 03/26/2016 2:00 PM [facility] DX ROOM 4 Xray [place] [facility] [...] bowel movement. You can also take an vhjc-ksg-mcanqxo medication, Miralax if needed to combat constipation. [...] 1. You will have follow-up appointments at [facility] as indicated below in Future Appointment and Orders. 2. You will need to have x-rays prior to your follow-up appointment on 03/26/16. Please come to Radiology, desk 3T, 1 hour BEFORE that appointment for those x-rays. Future Appointments Date Time Provider Department Center 03/26/2016 2:00 PM [facility] DX ROOM 4 Xray [place] [facility] 03/26/2016 3:00 PM Dane Chan MD [facility] [address] [place] [address] CLIN If you have questions or concerns: [...] Provider Department Dept Phone 03/26/2016 2:00 PM [facility] DX ROOM 4 [facility] Xray [phone] Please go to Print Operator Area 3T ([place] Location). 03/26/2016 3:00 PM Dane Chan MD Orthopaedics [phone] Future Orders Complete By Expires Referral to Physical Therapy [REF87 Custom] As directed Process Instructions: Note: Please indicate in the comments any additional Instructions, Precautions or Contra-indications. Scheduling Instructions: Questions: Reason for PT: Right Total Knee Arthroplasty. Specialty Program Eval: Modalities could include: Treatment Focus: Walker standard [EQ135 Custom] As directed Process Instructions: Scheduling Instructions: Comments: Yvan Maddox [address] [facility] [address] (home) Telephone Information: Diagnosis: total knee replacement RLE with Unsteady gait Patient???s: Hgt: 180 cm Wgt: 83 kg VENDOR: Ortho care Ordering: Front wheel walker Deliver to pt's hospital room #: 303b Questions: Vendor Name/Contact information: ortho care Primary Care Provider: JEFF LANE MD [phone] Discharge References/Attachments None documented in this encounter [...] bowel movement. You can also take an neea-qrp-tsplwvq medication, Miralax if needed to combat constipation. [...] 1. You will have follow-up appointments at [facility] as indicated below in Future Appointment and Orders. 2. You will need to have x-rays prior to your follow-up appointment on 03/26/16. Please come to Radiology, desk 3T, 1 hour BEFORE that appointment for those x-rays. Future Appointments Date Time Provider Department Center 03/26/2016 2:00 PM [facility] DX ROOM 4 Xray [place] [facility] [...] out of facility via wheel chair and [address] [place] [address]. * Sonia Barboza RN - 02/23/2016 11:15 [...] Sonia Barboza Office of Care Management Pager [phone] * Daniella Degroot, LEAD COOK - 02/23/2016 9:33 AM EDT Physical Therapy [...] ARTHROPLASTY performed by Dane Chan MD at [facility] MAIN OR Social History: Patient lives with his significant other in a home with 10 LETTY. Significant other and family members will be available for support as needed after d/c. 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 Pt aware and accepted appt. Health/Prescription Coverage: Primary Insurance: Medicaid, [place] Secondary Insurance: n/a Prescription Coverage: [place] Preferred Pharmacy: [facility] Other: n/a Primary Care Provider: JEFF LANE MD [phone] Patient/Caregiver Goals of Treatment: very eager to [...] of care planning. 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 Up to chair frequently Time in/out: 3495-0260 Total treatment time: 30 minutes Total timed treatment: 10 minutes (ANNETTE) Desiree Bose PT DPT Pager: [phone] Physical Therapy Rehabilitation Department * Op Note - Dane Chan MD - 02/22/2016 9:56 AM EDT [facility] Operative Note Patient Name: Yvan Maddox : [id number] MR#: [id number] Case Date: 02/22/2016 Surgeon: Surgeon(s) and Role: [...] Implant Name Type Inv. Item Serial No. Bariatric Surgeon Lot No. LRB No. Used Action CEMENT,BNE,SMARTSET,GHV,40G ([id number]) - [id number] IMPLANTS CEMENT,BNE,SMARTSET,GHV,40G ([id number]) Depuy It Technical Support Specialist - [id number] Right 1 Implanted TRAY,ATTUNE,FB,TIB,BSE,SZ7 ([id number]) (AUTOREQ) - [id number] IMPLANTS TRAY,ATTUNE,FB,TIB,BSE,SZ7 ([id number]) (AUTOREQ) Depuy It Technical Support Specialist - [id number] Right 1 Implanted COMPO,ATTUNE,PS,FEM,SZ7,RT ([id number]) (AUTOREQ) - [id number] IMPLANTS COMPO,ATTUNE,PS,FEM,SZ7,RT ([id number]) (AUTOREQ) Depuy It Technical Support Specialist - [id number] Right 1 Implanted MACEDO,ATTUNE,MDL,DOME,41MM ([id number]) (AUTOREQ) - [id number] IMPLANTS MACEDO,ATTUNE,MDL,DOME,41MM ([id number]) (AUTOREQ) Depuy It Technical Support Specialist - [id number] Right 1 Implanted INSER,ATTUNE,PS,FB,SZ7,5MM ([id number]) (AUTOREQ) - [id number] IMPLANTS INSER,ATTUNE,PS,FB,SZ7,5MM ([id number]) (AUTOREQ) Depuy It Technical Support Specialist - [id number] Right 1 Implanted INDICATIONS FOR PROCEDURE: This [...] planned surgery, and site according to the [facility] [place] Protocol. A nonsterile tourniquet was placed high [...] dressing was placed over the incision. A vji-up-tdneq Jac bandage was applied. A CryoCuff and [...] IMPLANTABLE DEVICES SCAN 02/24/2016 12:00 AM EDT READING PROFESSOR SCAN 02/24/2016 12:00 AM EDT HEMOGRAM Routine [...] SCAN EXT O RDR/RSLT * SCAN DOC: READING PROFESSOR (02/24/2016 12:00 AM EDT) Anatomical Region Laterality Modality Other Scanning Provider MEDIA MGR SCAN EXT O RDR/RSLT * (ABNORMAL) Differential, Automated (02/23/2016 3:28 AM EDT) Neutrophil % 86.6 % [facility] Neutrophil Absolute 17.93(H) 1.70 - 6.10 x10(3)/mc L [facility] Lymph % 7.1 % [facility] Lymphocytes Abs 1.5 0.9 - 3.2 x10(3)/mc L [facility] Monocyte % 5.1 % [facility] Monocyte Abs 1.1(H) 0.3 - 0.9 x10(3)/mc L [facility] Eos % 0.0 % [facility] Eosinophils Abs 0.0 0.0 - 0.4 x10(3)/mc L [facility] Basophil % 0.2 % [facility] Baso Absolute 0.0 0.0 - 0.1 x10(3)/mc L [facility] Immature Gran % 1.00 % [facility] Comment: Immature granulocytes(IG's)percentage and absolute count will include metamyelocytes, myelocytes, and promyelocytes. Blood smears from CBCs yielding IG's will be scanned manually for concordance. If this scan disagrees with the automated IG or if promyelocytes are noted, a manual differential will be performed. Immature Gran Absolute 0.20(H) 0.00 - 0.04 x10(3)/ L [facility] Blood specimen (specimen) 02/23/2016 3:28 AM EDT 02/23/2016 3:40 AM EDT Narrative Resulting Agency Comment Spec In Lab Dane Chan MD HEMATOLOGY ORDERABLE S [facility] [place] [address] * (ABNORMAL) Hemogram (02/23/2016 3:28 AM EDT) White Blood Cell 20.7(H) 4.0 - 9.5 x10(3)/ L [facility] Red Blood Cell 4.74 4.58 - 5.54 x10(6)/[facility] Hemoglobin 13.9 13.7 - 16.5 gm/dL [facility] Hematocrit 42.2 40.5 - 48.5 % [facility] Mean Cell Volume 89.0 82.9 - 93.1 [facility] Mean Cell Hemoglobin 29.3 27.5 - 32.1 pg [facility] Mean Cell Hemoglobin Concentration 32.9 32.0 - 35.7 gm/dL [facility] Platelet 301 145 - 357 x10(3)/ L [facility] RDW Standard Deviation 43.2 36.0 - 45.0 [facility] RDW coefficient of variation 13.1 11.4 - 13.8 % [facility] Mean Platelet Volume 10.1 7.6 - 12.9 [facility] NRBC% auto 0.0 % [facility] NRBC Absolute 0.000 0.000 - 0.000 x10(3)/ L [facility] Blood specimen (specimen) 02/23/2016 3:28 AM EDT 02/23/2016 3:40 AM EDT Narrative Resulting Agency Comment Spec In Lab Dane Chan MD HEMATOLOGY ORDERABLE S [facility] [place] [address] * (ABNORMAL) Basic Metabolic Panel (non-fasting) (02/23/2016 3:28 AM EDT) Glucose 121 65 - 199 mg/dL [facility] Comment:Diabetes: >=200 mg/d L plus symptoms Blood Urea Nitrogen 16 10 - 20 mg/dL [facility] Creatinine 0.78(L) 0.80 - 1.50 mg/dL [facility] Comment: Please note that the pediatric reference intervals supplied above were not validated at [facility]. Results from pediatric patients should be interpreted in conjunction to the patient's age, height and muscle mass. Sodium 136 135 - 145 mmol/L [facility] Potassium 4.4 3.5 - 5.0 mmol/L [facility] Comment: Please note: ??Patients with WBC >100,000 may have falsely elevated Potassium levels. ??For accurate Potassium quantification in these patients send serum separator tube (gold top) for subsequent determinations. ??Contact the Clinical Chemistry Laboratory if there are any questions. Chloride 101 98 - 107 mmol/L [facility] Carbon Dioxide 21(L) 22 - 31 mmol/L [facility] Anion Gap 14 5 - 15 mmol/L [facility] Calcium 9.3 8.5 - 10.5 mg/dL [facility] Est Glomerular Filtration Rate >60 >=60 [facility] Comment: This estimated GFR [...] the following links into your internet browser. [email or web address] Blood specimen (specimen) 02/23/2016 3:28 AM EDT 02/23/2016 3:40 AM EDT Narrative Resulting Agency Comment Spec In Lab Dane Chan MD CHEMISTRY ORDERABLES [facility] [place] [address] documented in this encounter Visit Diagnoses Not [...] 02/23/2016 12:45 AM EDT 3 mg multivitamin Mnvu-Ow-IZ-Min (THERAPEUTIC-M) 27-0.4 mg tablet 1 tablet 1 [...] - Provid er: Wanda Campbell RN) multivitamin Ifzu-Qa-SH-Min (THERAPEUTIC-M) 27-0.4 mg tablet 1 tablet 1 [...] in 3 L NS administered via pulse content checker.) bisacodyl (DULCOLAX) EC tablet 10 mg 10 [...] patient unable to take PO, may give IL if ordered, Routine BUpivacaine-EPINEPHrine 0.25 %-1:200,000 injection [...] Routine documented in this encounter Care Teams Health Outcomes Liaison Relationship Specialty Start Date End Date Jeff Lane MD [facility] [address] [place] [address] PCP - General General Internal Medicine 11/07/1509/16 documented as of this encounter
--- OUTSIDE RECORDS SUMMARY | 2024-04-08 10:05 | XMS_ITS | Encounter Summary ---
[place] [address] Care Team Providers Care Acid Plant Helper Name Role Phone Jeff Sherman MD Primary Care Provider [phone] Encounter Details Date Type Department Care Team (Late st Contact Info) Description 03/27/2016 Orders [place] [address] Master Cain MD [facility] [place] [address] Social History Tobacco Use Types Packs/Day Years [...] (300 mg QHS) to [facility] in [facility]. documented in this encounter Plan of Treatment Not on file documented as of this encounter Visit Diagnoses Not on filedocumented in this encounter Care Teams Acid Plant Helper Relationship Specialty Start Date End Date Jeff Sherman MD [facility] [address] [place] [address] PCP - General General Internal Medicine 11/07/1509/16 documented as of this encounter
--- OUTSIDE RECORDS SUMMARY | 2024-04-08 10:05 | XMS_ITS | Encounter Summary ---
[place] [address] Care Team Providers Care Material Engineer Name Role Phone AnjumLeticia Leonides CARL Primary Care Provider Reason for Visit * Reason Comments Pre-op Exam TKA rev. 06/16/17 Encounter Details Date Type Department Care Team (Late st Contact Info) Description 05/29/2017 2:40 PM EST Office [place] [address] Armando Espinosa MD [facility] [address] [place] [address] Preop examination; Status post right knee replacement; [...] surgery with Dr. Fleming on 06/16/17. Lot# [id number]. 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
--- OUTSIDE RECORDS SUMMARY | 2024-04-08 10:05 | XMS_ITS | Encounter Summary ---
Author Organization [facility] [place] [address] Care Team Providers Care Cross Country Truck Driver Name Role Phone AnjumAnthonyLeticiamona Coyle APRN Primary Care Provider Encounter Details Date Type Department Care Team (Latest Contact Info) Description 03/18/2017 8:40 AM EDT - 03/18/2017 10:06 AM EDT Hospital Encounter XRay at [address] [place] [address] Dane Fleming MD [facility] [place] [address] Presence of artificial knee joint, right Discharge [...] right documented in this encounter Care Teams Cross Country Truck Driver Relationship Specialty Start Date End Date Leticia Valero, MESERET PCP - General Family Medicine 03/18/17 12/16/18 documented as of this encounter
--- OUTSIDE RECORDS SUMMARY | 2024-04-08 10:05 | XMS_ITS | Encounter Summary ---
[place] [address] Care Team Providers Care Intelligence Intern Name Role Phone Jeff Sherman MD Primary Care Provider [phone] Encounter Details Date Type Department Care Team (Latest Contact Info) Description 02/19/2016 12:40 PM EDT Laboratory [place] [address] Post-traumatic osteoarthritis of right knee Social History [...] knee TYPE AND SCREEN, SDP (FUTURE SURGERY, [facility] SAME DAY PROGRAM ONLY) Routine 02/19/2016 12:59 PM EDT Post-traumatic osteoarthritis of right knee ABO/RH TYPING Routine 02/19/2016 12:59 PM EDT Post-traumatic osteoarthritis of right knee ANTIBODY SCREEN Routine 02/19/2016 12:59 PM EDT Post-traumatic osteoarthritis of right knee documented in this encounter Results * (ABNORMAL) Differential, Automated (02/19/2016 1:00 PM EDT) Neutrophil % 70.1 % [facility] Neutrophil Absolute 7.57(H) 1.70 - 6.10 x10(3)/mc L [facility] Lymph % 20.1 % [facility] Lymphocytes Abs 2.2 0.9 - 3.2 x10(3)/mc L [facility] Monocyte % 4.4 % [facility] Monocyte Abs 0.5 0.3 - 0.9 x10(3)/mc L [facility] Eos % 4.4 % [facility] Eosinophils Abs 0.5(H) 0.0 - 0.4 x10(3)/mc L [facility] Basophil % 0.6 % [facility] Baso Absolute 0.1 0.0 - 0.1 x10(3)/mc L [facility] Immature Gran % 0.40 % [facility] Comment: Immature granulocytes(IG's)percentage and absolute count will include metamyelocytes, myelocytes, and promyelocytes. Blood smears from CBCs yielding IG's will be scanned manually for concordance. If this scan disagrees with the automated IG or if promyelocytes are noted, a manual differential will be performed. Immature Gran Absolute 0.04 0.00 - 0.04 x10(3)/mc L [facility] Blood specimen (specimen) 02/19/2016 1:00 PM EDT 02/19/2016 1:36 PM EDT Narrative Resulting Agency Comment Spec In Lab Dane Fleming MD HEMATOLOGY ORDERABLE S [facility] [place] [address] * (ABNORMAL) Hemogram (02/19/2016 1:00 PM EDT) White Blood Cell 10.8(H) 4.0 - 9.5 x10(3)/mc L [facility] Red Blood Cell 5.00 4.58 - 5.54 x10(6)/[facility] Hemoglobin 14.8 13.7 - 16.5 gm/dL [facility] Hematocrit 45.4 40.5 - 48.5 % [facility] Mean Cell Volume 90.8 82.9 - 93.[address] [facility] Mean Cell Hemoglobin 29.6 27.5 - 32.[address] [facility] Mean Cell Hemoglobin Concentration 32.6 32.0 - 35.7 gm/dL [facility] Platelet 290 145 - 357 x10(3)/[facility] RDW Standard Deviation 43.4 36.0 - 45.0 [facility] RDW coefficient of variation 13.2 11.4 - 13.8 % [facility] Mean Platelet Volume 10.2 7.6 - 12.[address] [facility] NRBC% auto 0.0 % [facility] NRBC Absolute 0.000 0.000 - 0.000 x10(3)/mc L [facility] Blood specimen (specimen) 02/19/2016 1:00 PM EDT 02/19/2016 1:36 PM EDT Narrative Resulting Agency Comment Spec In Lab Dane Fleming MD HEMATOLOGY ORDERABLE S [facility] [place] [address] * (ABNORMAL) Basic Metabolic Panel (non-fasting) (02/19/2016 1:00 PM EDT) Glucose 91 65 - 199 mg/dL [facility] Comment:Diabetes: >=200 mg/d L plus symptoms Blood Urea Nitrogen 8(L) 10 - 20 mg/dL [facility] Creatinine 0.98 0.80 - 1.50 mg/dL [facility] Comment: Please note that the pediatric reference intervals supplied above were not validated at [facility]. Results from pediatric patients should be interpreted in conjunction to the patient's age, height and muscle mass. Sodium 142 135 - 145 mmol/L [facility] Potassium 4.6 3.5 - 5.0 mmol/L [facility] Comment: Please note: ??Patients with WBC >100,000 may have falsely elevated Potassium levels. ??For accurate Potassium quantification in these patients send serum separator tube (gold top) for subsequent determinations. ??Contact the Clinical Chemistry Laboratory if there are any questions. Chloride 104 98 - 107 mmol/L [facility] Carbon Dioxide 25 22 - 31 mmol/L [facility] Anion Gap 13 5 - 15 mmol/L [facility] Calcium 9.4 8.5 - 10.5 mg/dL [facility] Est Glomerular Filtration Rate >60 >=60 [facility] Comment: This estimated GFR (eGFR) [...] the following links into your internet browser. [email or web address] Blood specimen (specimen) 02/19/2016 1:00 PM EDT 02/19/2016 1:36 PM EDT Narrative Resulting Agency Comment Spec In Lab Dane Fleming MD CHEMISTRY ORDERABLES Performing Organization Address City/[facility] Co de Phone Number [facility] [place] [address] * Antibody screen (02/19/2016 12:59 PM EDT) Ab Screen Interp Negative [facility] Expires at 2359 on: 02/25/2016 [facility] Blood specimen (specimen) 02/19/2016 12:59 PM EDT 02/19/2016 1:52 PM EDT Narrative Resulting Agency Comment Spec In Lab Dane Fleming MD BLOOD BANK LAB ORDER KONSTANTIN Performing Organization Address City/[facility]/ZIP Co de Phone Number [facility] [place] [address] * ABO/Rh Typing (02/19/2016 12:59 PM EDT) ABORH Type O Pos [facility] Blood specimen (specimen) 02/19/2016 12:59 PM EDT 02/19/2016 1:52 PM EDT Narrative Resulting Agency Comment Spec In Lab Dane Fleming MD BLOOD BANK LAB ORDER KONSTANTIN Performing Organization Address City/[facility]/ZIP Co de Phone Number [facility] [place] [address] documented in this encounter Visit Diagnoses Diagnosis Post-traumatic osteoarthritis of right knee Secondary localized osteoarthrosis, lower leg documented in this encounter Care Teams Intelligence Intern Relationship Specialty Start Date End Date Jeff Sherman MD [facility] 1 [facility] [place] [address] PCP - General General Internal Medicine 11/07/1509/16 documented as of this encounter
--- OUTSIDE RECORDS SUMMARY | 2024-04-08 10:05 | XMS_ITS | Encounter Summary ---
[place] [address] Care Team Providers Care Motor Analyst Name Role Phone Jeff Sherman MD Primary Care Provider [phone] Encounter Details Date Type Department Care Team (Late st Contact Info) Description 02/28/2016 Tele[place] [address] Dane Fleming MD [facility] [place] [address] Social History Tobacco Use Types Packs/Day Years [...] use the Dilaudid for break through pain. Marilin-Mcpherson in [place] notified of the change and asked to destroy the Oxycontin RX. Patient's girlfriend will drive to the clinic today for berry picker at . documented in this encounter Plan of Treatment Not on file documented as of this encounter Visit Diagnoses Not on filedocumented in this encounter Care Teams Motor Analyst Relationship Specialty Start Date End Date Jeff Sherman MD [facility] [address] [place] [address] PCP - General General Internal Medicine 11/07/1509/16 documented as of this encounter
--- OUTSIDE RECORDS SUMMARY | 2024-04-08 10:05 | XMS_ITS | Encounter Summary ---
[place] [address] Care Team Providers Care Bomb Technician Name Role Phone Anjum Leticia Coyle APRN Primary Care Provider Encounter Details Date Type Department Care Team (Latest Contact Info) Description 05/29/2017 1:00 PM EST [place] [address] Instability of knee joint, unspecified laterality Social [...] laterality TYPE AND SCREEN, SDP (FUTURE SURGERY, [facility] SAME DAY PROGRAM ONLY) Routine [...] 12:54 PM EST) ABORH Type Recheck Completed [facility] Blood specimen (specimen) 05/29/2017 12:54 PM EST 05/29/2017 12:59 PM EST Narrative Resulting Agency Comment Spec In Lab Dane Fleming MD BLOOD BANK LAB ORDER KONSTANTIN [facility] [place] [address] * Differential, Automated (05/29/2017 12:54 PM EST) Neutrophil % 61.2 % [facility] Neutrophil Absolute 4.97 1.70 - 6.10 x10(3)/mcL [facility] Lymph % 28.7 % [facility] Lymphocytes Abs 2.3 0.9 - 3.2 x10(3)/[facility] Monocyte % 5.1 % [facility] Monocyte Abs 0.4 0.3 - 0.9 x10(3)/[facility] Eos % 3.7 % [facility] Eosinophils Abs 0.3 0.0 - 0.4 x10(3)/[facility] Basophil % 0.9 % [facility] Baso Absolute 0.1 0.0 - 0.1 x10(3)/[facility] Immature Gran % 0.40 % [facility] Comment: Immature granulocytes(IG's)percentage and absolute count will include metamyelocytes, myelocytes, and promyelocytes. Blood smears from CBCs yielding IG's will be scanned manually for concordance. If this scan disagrees with the automated IG or if promyelocytes are noted, a manual differential will be performed. Immature Gran Absolute 0.03 0.00 - 0.04 x10(3)/[facility] Blood specimen (specimen) 05/29/2017 12:54 PM EST 05/29/2017 12:58 PM EST Narrative Resulting Agency Comment Spec In Lab Dane Fleming MD HEMATOLOGY ORDERABLE S [facility] [place] [address] * (ABNORMAL) Hemogram (05/29/2017 12:54 PM EST) White Blood Cell 8.1 4.0 - 9.5 x10(3)/mc L [facility] Red Blood Cell 5.31 4.58 - 5.54 x10(6)/mc L [facility] Hemoglobin 15.9 13.7 - 16.5 gm/dL [facility] Hematocrit 47.7 40.5 - 48.5 % [facility] Mean Cell Volume 89.8 82.9 - 93.1 fL [facility] Mean Cell Hemoglobin 29.9 27.5 - 32.1 pg [facility] Mean Cell Hemoglobin Concentration 33.3 32.0 - 35.7 gm/dL [facility] Platelet 384(H) 145 - 357 x10(3)/mc L [facility] RDW Standard Deviation 46.0(H) 36.0 - 45.0 fL [facility] RDW coefficient of variation 13.9(H) 11.4 - 13.8 % [facility] Mean Platelet Volume 9.8 7.6 - 12.9 fL [facility] NRBC% auto 0.0 % [facility] NRBC Absolute 0.000 0.000 - 0.000 x10(3)/mc L [facility] Blood specimen (specimen) 05/29/2017 12:54 PM EST 05/29/2017 12:58 PM EST Narrative Resulting Agency Comment Spec In Lab Dane Fleming MD HEMATOLOGY ORDERABLE S [facility] [place] [address] * Antibody screen (05/29/2017 12:54 PM EST) Ab Screen Interp Negative [facility] Expires at [id number] on: 06/19/2017 [facility] Blood specimen (specimen) 05/29/2017 12:54 PM EST 05/29/2017 12:59 PM EST Narrative Resulting Agency Comment Spec In Lab Dane Fleming MD BLOOD BANK LAB ORDER KONSTANTIN [facility] [place] [address] * ABO/Rh Typing (05/29/2017 12:54 PM EST) ABORH Type O Pos [facility] Blood specimen (specimen) 05/29/2017 12:54 PM EST 05/29/2017 12:59 PM EST Narrative Resulting Agency Comment Spec In Lab Dnae Fleming MD BLOOD BANK LAB ORDER KONSTANTIN Performing Organization Address [facility] Co de Phone Number [facility] [place] [address] * APTT (05/29/2017 12:54 PM EST) Partial Thromboplastin Time 31 25 - 35 sec [facility] Comment: The recommended therapeutic range for full dose, unfractionated heparin at [facility] is 80 ? 114 seconds. The use of the anti-Xa (heparin) level rather than the PTT is recommended for monitoring anticoagulation intensity in critically ill patients receiving unfractionated heparin by continuous IV infusion. Blood specimen (specimen) 05/29/2017 12:54 PM EST 05/29/2017 12:58 PM EST Narrative Resulting Agency Comment Spec In Lab Dane Fleming MD HEMATOLOGY ORDERABLE S Performing Organization Address [facility] Co de Phone Number [facility] [place] [address] * Prothrombin Time (05/29/2017 12:54 PM EST) Prothrombin Time 12.9 11.8 - 14.0 sec [facility] International Normalization Ratio 1.0 0.9 - 1.1 [facility] Comment: An INR <2.0 indicates adequate [...] ORDERABLE S Performing Organization Address [facility] Co de Phone Number [facility] [place] [address] * Basic Metabolic Panel (non-fasting) (05/29/2017 12:54 PM EST) Glucose 70 65 - 199 mg/dL [facility] Comment:Diabetes: >=200 mg/d L plus symptoms Blood Urea Nitrogen 12 10 - 20 mg/dL [facility] Creatinine 1.01 0.80 - 1.50 mg/dL [facility] Sodium 142 135 - 145 mmol/L [facility] Potassium 4.1 3.5 - 5.0 mmol/L [facility] Comment: Please note: ??Patients with WBC >100,000 may have falsely elevated Potassium levels. ??For accurate Potassium quantification in these patients send serum separator tube (gold top) for subsequent determinations. ??Contact the Clinical Chemistry Laboratory if there are any questions. Chloride 101 98 - 107 mmol/L [facility] Carbon Dioxide 26 22 - 31 mmol/L [facility] Anion Gap 15 5 - 15 mmol/L [facility] Calcium 9.6 8.5 - 10.5 mg/dL [facility] Est Glomerular Filtration Rate >60 >=60 [facility] Comment: The reported eGFR should be multiplied by 1.2 for patients. The MDRD is not an appropriate measure of renal function for patients with body mass extremes or in patients with acute kidney failure. [email or web address] Blood specimen (specimen) 05/29/2017 12:54 PM EST 05/29/2017 12:58 PM EST Narrative Resulting Agency Comment Spec In Lab Dane Fleming MD CHEMISTRY ORDERABLES [facility] [place] [address] documented in this encounter Visit Diagnoses Diagnosis Instability of knee joint, unspecified laterality documented in this encounter Care Teams Bomb Technician Relationship Specialty Start Date End Date Leticia Valero APRN PCP - General Family Medicine 03/18/17 12/16/18 documented as of this encounter
--- OUTSIDE RECORDS SUMMARY | 2024-04-08 10:05 | XMS_ITS | Encounter Summary ---
Author Organization [facility] [place] [address] Care Team Providers Care Black Studies Professor Name Role Phone Jeff Sherman MD Primary Care Provider [phone] Encounter Details Date Type Department Care Team (Latest Contact Info) Description 03/26/2016 2:01 PM EST - 03/26/2016 11:59 PM EST Hospital Encounter XRay at [address] [place] [address] Dane Fleming MD [facility] [place] [address] Status post total knee replacement, right with [...] XR Knee Standing Alignment AP Lat [place] Right (03/26/2016 2:37 PM EST) Anatomical Region [...] (02/22/16) documented in this encounter Care Teams Black Studies Professor Relationship Specialty Start Date End Date Jeff Sherman MD [facility] [address] [place] [address] PCP - General General Internal Medicine 11/07/1509/16 documented as of this encounter
--- OUTSIDE RECORDS SUMMARY | 2024-04-08 10:05 | XMS_ITS | Encounter Summary ---
[place] [address] Care Team Providers Care Transmission Rebuilder Name Role Phone Jeff Sherman MD Primary Care Provider [phone] Encounter Details Date Type Department Care Team (Late st Contact Info) Description 02/24/2016 [place] [address] Ian Mustafa MD [facility] DR ORTHOPA[place] [address] Social History Tobacco Use Types Packs/Day Years [...] on filedocumented in this encounter Care Teams Transmission Rebuilder Relationship Specialty Start Date End Date Jeff Sherman MD [facility] [address] [place] [address] PCP - General General Internal Medicine 11/07/1509/16 documented as of this encounter
--- OUTSIDE RECORDS SUMMARY | 2024-04-08 10:05 | XMS_ITS | Encounter Summary ---
[place] [address] Care Team Providers Care Faa Certified Powerplant Mechanic Name Role Phone AnjumLeticia Leonides CARL Primary Care Provider Encounter Details Date Type Department Care Team (Late st Contact Info) Description 04/03/2017 Orders [place] [address] Dane Fleming MD [facility] [place] [address] Instability of knee joint, unspecified laterality (Primary [...] (Bezet) 424 ms MUSE SYSTEM Calculated P [place] 45 degrees MUSE SYSTEM Calculated R [place] 51 degrees MUSE SYSTEM Calculated T [place] 51 degrees MUSE SYSTEM INTERPRETATION Normal sinus rhythm Normal ECG When compared with ECG of 19-FEB-2016 13:04, No significant change was found Confirmed by MD Elmer, Wilfredo ([id number]) on 05/29/2017 4:27:45 PM MUSE SYSTEM 05/29/2017 1:05 PM EST 05/29/2017 4:27 PM EST Dane Fleming MD ECG ORDERABLES Performing Organization Address [facility] Co de Phone Number MUSE SYSTEM * APTT (05/29/2017 12:54 PM EST) Partial Thromboplastin Time 31 25 - 35 sec [facility] Comment: The recommended therapeutic range for full dose, unfractionated heparin at [facility] is 80 ? 114 seconds. The use of the anti-Xa (heparin) level rather than the PTT is recommended for monitoring anticoagulation intensity in critically ill patients receiving unfractionated heparin by continuous IV infusion. Blood specimen (specimen) 05/29/2017 12:54 PM EST 05/29/2017 12:58 PM EST Narrative Resulting Agency Comment Spec In Lab Dane Fleming MD HEMATOLOGY ORDERABLE S Performing Organization Address City/[facility]/ZIP Co de Phone Number [facility] [place] [address] * Prothrombin Time (05/29/2017 12:54 PM EST) [...] [facility] [place] [address] * Basic Metabolic Panel (non-fasting) (05/29/2017 12:54 [...] or in patients with acute kidney failure. [email or web address] Blood specimen (specimen) 05/29/2017 12:54 PM EST 05/29/2017 12:58 PM EST Narrative Resulting Agency Comment Spec In Lab Dane Fleming MD CHEMISTRY ORDERABLES Performing Organization Address City/State/[facility] Co de Phone Number [facility] [place] [address] documented in this encounter Visit Diagnoses Diagnosis Instability of knee joint, unspecified laterality- Primary documented in this encounter Care Teams Faa Certified Powerplant Mechanic Relationship Specialty Start Date End Date Leticia Valero APRN PCP - General Family Medicine 03/18/17 12/16/18 documented as of this encounter
--- OUTSIDE RECORDS SUMMARY | 2024-04-08 10:05 | XMS_ITS | Encounter Summary ---
Author Organization [facility] [place] [address] Care Team Providers Care Polishing Wheel Setter Name Role Phone Jeff Sherman MD Primary Care Provider [phone] Encounter Details Date Type Department Care Team (Latest Contact Info) Description 02/19/2016 1:14 PM EDT - 02/19/2016 1:55 PM EDT Hospital Encounter XRay at [address] [place] [address] Dane Fleming MD [facility] ORTHOPAED[place] [address] Post-traumatic osteoarthritis of right knee Discharge Disposition: [...] leg documented in this encounter Care Teams Polishing Wheel Setter Relationship Specialty Start Date End Date Jfef Sherman MD [facility] [[email or web address] [address] [place] [address] PCP - General General Internal Medicine 11/07/1509/16 documented as of this encounter
--- OUTSIDE RECORDS SUMMARY | 2024-04-08 10:05 | XMS_ITS | Encounter Summary ---
Author Organization [place] [id number] Care Team Providers Care Artificial Flowers Supervisor Name Role Phone Jeff Lane MD Primary Care Provider [phone] Reason for Referral * Physical Therapy (Routine) - Specialty Diagnoses / Procedures Referred By Delbert diaz Referred To Contact Physical Therapy Diagnoses Status post total knee replacement, right Thao Jasmine PA [facility] [place] [address] Referral ID Status Reason Start Date Expiration Date V isits Requested Visits Authorized [id number] Evaluate and Treat 02/23/2016 08/21/2016 12 12 Reason for Visit * Auth/Cert Specialty Diagnoses / Procedures Referred By Delbert diaz Referred To Contact Diagnoses Knee pain Right knee degenerative arthritis RIGHT KNEE DEGENERATIVE OA Procedures PRO TOTAL KNEE ARTHROPLASTY @TOTAL KNEE ARTHROPLASTY Referral ID Status Reason Start Date Expiration Date Visits Re quested Visits Authorized [id number] 1 1 Encounter Details Date Type Department Care Team (Latest Contact Info) Description 02/22/2016 5:40 AM EDT - 02/23/2016 12:55 PM EDT Hospital Encounter 3 [place] [address] Dane Chan MD [facility] [place] [address] Status post total knee replacement, right with [...] Yvan Maddox Patient Age: 41 y.o. Language: Romanian Race: White Ethnicity: Not nor Admit date: 02/22/2016 Discharge date and time: 02/23/2016 Attending Physician: Dane Chan MD Discharge Physician: Dane Chan MD Follow-up Recommendations for Providers: See discharge instructions for additional details. Future Appointments Date Time Provider Department Center 03/26/2016 2:00 PM [facility] DX ROOM 4 [facility] Xray [facility] 03/26/2016 3:00 PM Dane Chan MD [facility] 3C [facility] Inpatient Provider Contact Information: Dane Chan MD Orthopedics: [phone] After hours and weekends, call [facility] Mold Maker Plaster, , and have the Orthopedic resident paged. [...] bowel movement. You can also take an upur-uqm-epeswjl medication, Miralax if needed to combat constipation. [...] 1. You will have follow-up appointments at [facility] as indicated below in Future Appointment and Orders. 2. You will need to have x-rays prior to your follow-up appointment. [facility] hour BEFORE that appointment for those x-rays. Future Appointments Date Time Provider Department Center 03/26/2016 2:00 PM [facility] DX ROOM 4 Xray [facility] [...] bowel movement. You can also take an wyys-kxb-hhsnntm medication, Miralax if needed to combat constipation. [...] 1. You will have follow-up appointments at [facility] as indicated below in Future Appointment and Orders. 2. You will need to have x-rays prior to your follow-up appointment on 03/26/16. Please come to Radiology, desk 3T, 1 hour BEFORE that appointment for those x-rays. Future Appointments Date Time Provider Department Center 03/26/2016 2:00 PM [facility] DX ROOM 4 Xray [facility] [...] Provider Department Dept Phone 03/26/2016 2:00 PM [facility] DX ROOM 4 [facility] Xrtatiana [phone] Please go to Credit Officer Area 3T ([place] Location). 03/26/2016 3:00 PM Dane Chan MD Orthopaedics [phone] Future Orders Complete By Expires Referral to Physical Therapy [REF87 Custom] As directed Process Instructions: Note: Please indicate in the comments any additional Instructions, Precautions or Contra-indications. Scheduling Instructions: Questions: Reason for PT: Right Total Knee Arthroplasty. Specialty Program Eval: Modalities could include: Treatment Focus: Walker standard [EQ135 Custom] As directed Process Instructions: Scheduling Instructions: Comments: Yvan Maddox [address] [address] (home) Telephone Information: Diagnosis: total knee replacement RLE with Unsteady gait Patient???s: Hgt: 180 cm Wgt: 83 kg VENDOR: Ortho care Ordering: Front wheel walker Deliver to 's hospital room #: 303b Questions: Vendor Name/Contact information: ortho care Primary Care Provider: JEFF LANE MD [phone] Discharge References/Attachments None documented in this encounter [...] bowel movement. You can also take an ryij-yqp-ottrgxz medication, Miralax if needed to combat constipation. [...] 1. You will have follow-up appointments at [facility] as indicated below in Future Appointment and Orders. 2. You will need to have x-rays prior to your follow-up appointment on 03/26/16. Please come to Radiology, desk 3T, 1 hour BEFORE that appointment for those x-rays. Future Appointments Date Time Provider Department Center 03/26/2016 2:00 PM [facility] DX ROOM 4 Xray [facility] [...] facility via wheel chair and 3 west BOW MAKER MACHINE TENDER. * Sonia Barboza RN - 02/23/2016 11:15 [...] Sonia Barboza Office of Care Management Pager [phone] * Daniella Degroot PTA - 02/23/2016 9:33 [...] ARTHROPLASTY performed by Dane Chan MD at [facility] MAIN OR Social History: Patient lives with his significant other in a home with 10 LETTY. Significant other and family members will be available for support as needed after d/c. 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 Pt aware and accepted appt. Health/Prescription Coverage: Primary Insurance: Medicaid, [place] Secondary Insurance: n/a Prescription Coverage: Medicaid [place] Preferred Pharmacy: [facility] Other: n/a Primary Care Provider: JEFF LANE MD [phone] Patient/Caregiver Goals of Treatment: very eager to [...] of care planning. 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 Up to chair frequently Time in/out: [id number] Total treatment time: 30 minutes Total timed treatment: 10 minutes (ANNETTE) Desiree Bose PT DPT Pager: [phone] Physical Therapy Rehabilitation Department * Op Note - Dane Chan MD - 02/22/2016 9:56 AM EDT [facility] Operative Note Patient Name: Yvan Maddox : [id number] MR#: [id number] Case Date: 02/22/2016 Surgeon: Surgeon(s) and Role: [...] Implant Name Type Inv. Item Serial No. Utility Bag Assembler Lot No. LRB No. Used Action CEMENT,BNE,SMARTSET,GHV,40G ([id number]) - [id number] IMPLANTS CEMENT,BNE,SMARTSET,GHV,40G ([id number]) Depuy Supervisor Irrigation - [id number] Right 1 Implanted TRAY,ATTUNE,FB,TIB,BSE,SZ7 ([id number]) (AUTOREQ) - [id number] IMPLANTS TRAY,ATTUNE,FB,TIB,BSE,SZ7 ([id number]) (AUTOREQ) Depuy Supervisor Irrigation - [id number] Right 1 Implanted COMPO,ATTUNE,PS,FEM,SZ7,RT ([id number]) (AUTOREQ) - [id number] IMPLANTS COMPO,ATTUNE,PS,FEM,SZ7,RT ([id number]) (AUTOREQ) Depuy Supervisor Irrigation - [id number] Right 1 Implanted MACEDO,ATTJONAS,MDL,DOME,41MM ([id number]) (AUTOREQ) - [id number] IMPLANTS MACEDO,ATTUNE,MDL,DOME,41MM ([id number]) (AUTOREQ) Depuy Supervisor Irrigation - [id number] Right 1 Implanted INSER,ATTUNE,PS,FB,SZ7,5MM ([id number]) (AUTOREQ) - [id number] IMPLANTS INSER,ATTUNE,PS,FB,SZ7,5MM ([id number]) (AUTOREQ) Depuy Supervisor Irrigation - [id number] Right 1 Implanted INDICATIONS FOR PROCEDURE: This [...] planned surgery, and site according to the [facility] [place] Protocol. A nonsterile tourniquet was placed high [...] dressing was placed over the incision. A yji-zy-zdupm Jac bandage was applied. A CryoCuff and [...] IMPLANTABLE DEVICES SCAN 02/24/2016 12:00 AM EDT EXPANDER SCAN 02/24/2016 12:00 AM EDT HEMOGRAM Routine [...] SCAN EXT O RDR/RSLT * SCAN DOC: EXPANDER (02/24/2016 12:00 AM EDT) Anatomical Region Laterality Modality Other Scanning Provider MEDIA MGR SCAN EXT O RDR/RSLT * (ABNORMAL) Differential, Automated (02/23/2016 3:28 AM EDT) Neutrophil % 86.6 % [facility] Neutrophil Absolute 17.93(H) 1.70 - 6.10 x10(3)/mc L [facility] Lymph % 7.1 % [facility] Lymphocytes Abs 1.5 0.9 - 3.2 x10(3)/mc L [facility] Monocyte % 5.1 % [facility] Monocyte Abs 1.1(H) 0.3 - 0.9 x10(3)/[facility] Eos % 0.0 % [facility] Eosinophils Abs 0.0 0.0 - 0.4 x10(3)/[facility] Basophil % 0.2 % [facility] Baso Absolute 0.0 0.0 - 0.1 x10(3)/[facility] Immature Gran % 1.00 % [facility] Comment: Immature granulocytes(IG's)percentage and absolute count will include metamyelocytes, myelocytes, and promyelocytes. Blood smears from CBCs yielding IG's will be scanned manually for concordance. If this scan disagrees with the automated IG or if promyelocytes are noted, a manual differential will be performed. Immature Gran Absolute 0.20(H) 0.00 - 0.04 x10(3)/[facility] Blood specimen (specimen) 02/23/2016 3:28 AM EDT 02/23/2016 3:40 AM EDT Narrative Resulting Agency Comment Spec In Lab Dane Chan MD HEMATOLOGY ORDERABLE S [facility] [place] [place] [address] * (ABNORMAL) Hemogram (02/23/2016 3:28 AM EDT) White Blood Cell 20.7(H) 4.0 - 9.5 x10(3)/[facility] Red Blood Cell 4.74 4.58 - 5.54 x10(6)/[facility] Hemoglobin 13.9 13.7 - 16.5 gm/dL [facility] Hematocrit 42.2 40.5 - 48.5 % [facility] Mean Cell Volume 89.0 82.9 - 93.1 fL [facility] Mean Cell Hemoglobin 29.3 27.5 - 32.1 pg [facility] Mean Cell Hemoglobin Concentration 32.9 32.0 - 35.7 gm/dL [facility] Platelet 301 145 - 357 x10(3)/mc L [facility] RDW Standard Deviation 43.2 36.0 - 45.0 fL [facility] RDW coefficient of variation 13.1 11.4 - 13.8 % [facility] Mean Platelet Volume 10.1 7.6 - 12.9 fL [facility] NRBC% auto 0.0 % [facility] NRBC Absolute 0.000 0.000 - 0.000 x10(3)/mc L [facility] Blood specimen (specimen) 02/23/2016 3:28 AM EDT 02/23/2016 3:40 AM EDT Narrative Resulting Agency Comment Spec In Lab Dane Chan MD HEMATOLOGY ORDERABLE S Performing Organization Address City/State/[facility] Co de Phone Number [facility] [address] * (ABNORMAL) Basic Metabolic Panel (non-fasting) (02/23/2016 3:28 AM EDT) Glucose 121 65 - 199 mg/dL [facility] Comment:Diabetes: >=200 mg/d L plus symptoms Blood Urea Nitrogen 16 10 - 20 mg/dL [facility] Creatinine 0.78(L) 0.80 - 1.50 mg/dL [facility] Comment: Please note that the pediatric reference intervals supplied above were not validated at [facility]. Results from pediatric patients should be interpreted in conjunction to the patient's age, height and muscle mass. Sodium 136 135 - 145 mmol/L [facility] Potassium 4.4 3.5 - 5.0 mmol/L [facility] Comment: Please note: ??Patients with WBC >100,000 may have falsely elevated Potassium levels. ??For accurate Potassium quantification in these patients send serum separator tube (gold top) for subsequent determinations. ??Contact the Clinical Chemistry Laboratory if there are any questions. Chloride 101 98 - 107 mmol/L [facility] Carbon Dioxide 21(L) 22 - 31 mmol/L [facility] Anion Gap 14 5 - 15 mmol/L [facility] Calcium 9.3 8.5 - 10.5 mg/dL [facility] Est Glomerular Filtration Rate >60 >=60 [facility] Comment: This estimated GFR [...] the following links into your internet browser. [email or web address] Blood specimen (specimen) 02/23/2016 3:28 AM EDT 02/23/2016 3:40 AM EDT Narrative Resulting Agency Comment Spec In Lab Dane Chan MD CHEMISTRY ORDERABLES [facility] [place] [address] documented in this encounter Visit Diagnoses Diagnosis [...] 02/22/2016 6:50 AM EDT 1 mg multivitamin Mbrb-Qo-CF-Min (THERAPEUTIC-M) 27-0.4 mg tablet 1 tablet 1 [...] - Provid er: Wanda Campbell RN) multivitamin Vtzq-Pv-GN-Min (THERAPEUTIC-M) 27-0.4 mg tablet 1 tablet 1 [...] in 3 L NS administered via pulse supervisor cd area.) bisacodyl (DULCOLAX) EC tablet 10 mg 10 [...] patient unable to take PO, may give MD if ordered, Routine BUpivacaine-EPINEPHrine 0.25 %-1:200,000 injection [...] Intravenous, EVERY 8 HOURS PRN, Starting on [place] 02/22/16 at 1509, Until Fri02/23/16 at 1455, [...] Routine documented in this encounter Care Teams Artificial Flowers Supervisor Relationship Specialty Start Date End Date Jeff Lane MD [facility] [address] [place] [address] PCP - General General Internal Medicine 11/07/1509/16 documented as of this encounter
--- OUTSIDE RECORDS SUMMARY | 2024-04-08 10:05 | XMS_ITS | Encounter Summary ---
[place] [address] Care Team Providers Care Parking Regulation Enforcement Officer Name Role Phone Jeff Sherman MD Primary Care Provider [phone] Encounter Details Date Type Department Care Team (Late st Contact Info) Description 03/22/2016 Orders [place] [address] Dane Fleming MD [facility] [place] [address] Status post total knee replacement, right with [...] * XR Knee Standing Alignment AP Lat [place] Right (03/26/2016 2:37 PM EST) Anatomical Region [...] (02/22/16) documented in this encounter Care Teams Parking Regulation Enforcement Officer Relationship Specialty Start Date End Date Jeff Sherman MD [facility] [address] [place] [address] PCP - General General Internal Medicine 11/07/1509/16 documented as of this encounter
--- OUTSIDE RECORDS SUMMARY | 2024-04-08 10:05 | XMS_ITS | Encounter Summary ---
[place] [address] Care Team Providers Care Metal Riveting Machine Operator Name Role Phone Anjum Leticia Coyle APRN Primary Care Provider Encounter Details Date Type Department Care Team (Latest Contact Info) Description 03/18/2017 9:55 AM EDT Laboratory Appointment Lab [address] [place] [address] Status post total knee replacement, right with [...] 9:59 AM EDT) Neutrophil % 63.9 % [facility] Neutrophil Absolute 5.81 1.70 - 6.10 x10(3)/mc L [facility] Lymph % 23.2 % [facility] Lymphocytes Abs 2.1 0.9 - 3.2 x10(3)/mc L [facility] Monocyte % 6.6 % [facility] Monocyte Abs 0.6 0.3 - 0.9 x10(3)/mc L [facility] Eos % 5.3 % [facility] Eosinophils Abs 0.5(H) 0.0 - 0.4 x10(3)/mc L [facility] Basophil % 0.7 % [facility] Baso Absolute 0.1 0.0 - 0.1 x10(3)/mc L [facility] Immature Gran % 0.30 % [facility] Comment: Immature granulocytes(IG's)percentage and absolute count will include metamyelocytes, myelocytes, and promyelocytes. Blood smears from CBCs yielding IG's will be scanned manually for concordance. If this scan disagrees with the automated IG or if promyelocytes are noted, a manual differential will be performed. Immature Gran Absolute 0.03 0.00 - 0.04 x10(3)/ L [facility] Blood specimen (specimen) 03/18/2017 9:59 AM EDT 03/18/2017 10:07 AM EDT Narrative Resulting Agency Comment Spec In Lab Mercedez Stiles Eliezer CARL HEMATOLOGY ORDERABL ES [facility] [place] [address] * (ABNORMAL) Hemogram (03/18/2017 9:59 AM EDT) White Blood Cell 9.1 4.0 - 9.5 x10(3)/[facility] Red Blood Cell 5.06 4.58 - 5.54 x10(6)/[facility] Hemoglobin 15.0 13.7 - 16.5 gm/dL [facility] Hematocrit 46.5 40.5 - 48.5 % [facility] Mean Cell Volume 91.9 82.9 - 93.1 fL [facility] Mean Cell Hemoglobin 29.6 27.5 - 32.1 pg [facility] Mean Cell Hemoglobin Concentration 32.3 32.0 - 35.7 gm/dL [facility] Platelet 285 145 - 357 x10(3)/[facility] RDW Standard Deviation 46.2(H) 36.0 - 45.0 [facility] RDW coefficient of variation 13.7 11.4 - 13.8 % [facility] Mean Platelet Volume 9.9 7.6 - 12.9 fL [facility] NRBC% auto 0.0 % [facility] NRBC Absolute 0.000 0.000 - 0.000 x10(3)/[facility] Blood specimen (specimen) 03/18/2017 9:59 AM EDT 03/18/2017 10:07 AM EDT Narrative Resulting Agency Comment Spec In Lab Mercedez Martins REFRIGERATED CARGO CLERK HEMATOLOGY ORDERABL ES Performing Organization Address [facility] Co de Phone Number [facility] [place] [address] * Sedimentation rate (03/18/2017 9:59 AM EDT) Sedimentation Rate Automated 7 0 - 15 mm/hr [facility] Blood specimen (specimen) 03/18/2017 9:59 AM EDT 03/18/2017 10:07 AM EDT Narrative Resulting Agency Comment Spec In Lab Mercedez Martins REFRIGERATED CARGO CLERK HEMATOLOGY ORDERABL ES Performing Organization Address [facility] Co de Phone Number [facility] [place] [address] * CRP, acute inflammation (03/18/2017 9:59 AM EDT) C-Reactive Protein 0.8 <=4.9 mg/L [facility] Blood specimen (specimen) 03/18/2017 9:59 AM EDT 03/18/2017 10:07 AM EDT Narrative Resulting Agency Comment Spec In Lab Mercedez Martins REFRIGERATED CARGO CLERK CHEMISTRY ORDERABLE S Performing Organization Address [facility] de Phone Number [facility] [place] [address] documented in this encounter Visit Diagnoses Diagnosis Status post total knee replacement, right with Dr. Fleming (02/22/16) Status post right knee replacement documented in this encounter Care Teams Metal Riveting Machine Operator Relationship Specialty Start Date End Date Leticia Valero APRN PCP - General Family Medicine 03/18/17 12/16/18 documented as of this encounter
--- OUTSIDE RECORDS SUMMARY | 2024-04-08 10:05 | XMS_ITS | Encounter Summary ---
Author Organization [facility] [place] [address] Care Team Providers Care Envelope Stamping Machine Operator Name Role Phone AnjumAnthonyLeticiamona Coyle APRN Primary Care Provider Encounter Details Date Type Department Care Team (Latest Contact Info) Description 03/18/2017 10:07 AM EDT - 03/18/2017 11:59 PM EDT Hospital Encounter XRay at [address] [place] [address] Mercedez Martins APRN [facility] [place] [address] Status post total knee replacement, right with [...] replacement documented in this encounter Care Teams Envelope Stamping Machine Operator Relationship Specialty Start Date End Date Leticia Valero APRN PCP - General Family Medicine 03/18/17 12/16/18 documented as of this encounter
--- OUTSIDE RECORDS SUMMARY | 2024-04-08 10:05 | XMS_ITS | Encounter Summary ---
[place] [address] Care Team Providers Care Boiler Operator Name Role Phone Jeff Sherman MD Primary Care Provider [phone] Reason for Visit * Auth/Cert Specialty Diagnoses / Procedures Referred By Delbert diaz Referred To Contact Diagnoses Knee pain Right knee degenerative arthritis RIGHT KNEE DEGENERATIVE OA Procedures PRO TOTAL KNEE ARTHROPLASTY @TOTAL KNEE ARTHROPLASTY Referral ID Status Reason Start Date Expiration Date Visits Re quested Visits Authorized [id number] 1 1 Encounter Details Date Type Department Care Team (Late st Contact Info) Description 02/22/2016 7:21 AM EDT Anesthesia [place] [address] Jody Richardson MD [facility] [place] [address] Anesthesia Record Procedure Summary Procedure Name Responsible [...] Richardson MD - 02/22/2016 4:46 PM EDT [facility] Department of Anesthesiology Post-procedure Note Patient: Yvan [...] All Anesthesia Providers: Anesthesiologist: Jody Richardson MD LINING IRONER: Yfn Raya CRNA Last (1hr) Vitals: BP Temp Pulse Resp SpO2 Patient Location: PACU/[facility] Level of Consciousness: Awake and Alert [...] Length: 10 cm Gauge: 18 Needle Type: Y-ooswh-ureio Medication injection made incrementally with aspirations. Nerve [...] Length: 10 cm Gauge: 18 Needle Type: U-awqos-ducxi Medication injection made incrementally with aspirations. Nerve [...] mg documented in this encounter Care Teams Boiler Operator Relationship Specialty Start Date End Date Jeff Sherman MD [facility] [address] [place] [address] PCP - General General Internal Medicine 11/07/1509/16 documented as of this encounter
--- OUTSIDE RECORDS SUMMARY | 2024-04-08 10:05 | XMS_ITS | Encounter Summary ---
[place] [address] Care Team Providers Care Lawn Mower Operator Name Role Phone Jeff Sherman MD Primary Care Provider [phone] Encounter Details Date Type Department Care Team (Latest Contact Info) Description 02/19/2016 12:20 PM EDT Clinical [place] [address] Post-traumatic osteoarthritis of right knee Social History [...] (Bezet) 403 ms MUSE SYSTEM Calculated P [place] 42 degrees MUSE SYSTEM Calculated R [place] 36 degrees MUSE SYSTEM Calculated T [place] 52 degrees MUSE SYSTEM INTERPRETATION Sinus bradycardia [...] leg documented in this encounter Care Teams Lawn Mower Operator Relationship Specialty Start Date End Date Jeff Sherman MD [facility] [address] [place] [address] PCP - General General Internal Medicine 11/07/1509/16 documented as of this encounter
--- OUTSIDE RECORDS SUMMARY | 2024-04-08 10:05 | XMS_ITS | Encounter Summary ---
[place] [address] Care Team Providers Care Waste/Materials Exchange Specialist Name Role Phone Anjum Leticia Coyle APRN Primary Care Provider Encounter Details Date Type Department Care Team (Late st Contact Info) Description 05/29/2017 2:00 PM EST Notes [place] [address] Social History Tobacco Use Types Packs/Day Years [...] without assistance. 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 Home [...] We discussed qualifications to go to a half-way facility. We discussed potential out of pocket costs associated with non-emergent wheelchair van and ambulance transportation.We discussed the purpose and services provided by [facility]. If patient opts to go to outpatient [...] that they will be working with a farm or ranch animal caretaker after surgery to facilitate the discharge plan. I encouraged the patient to call with any questions or concerns prior to the surgery as well as when they discharge home. Health/Prescription Coverage: Primary Insurance: MEDICAID [place] Secondary Insurance: N/A Prescription Coverage: Medicaid [place] Preferred Pharmacy:[facility] [address] [place] [phone] Other: None Primary Care Provider: Leticia Valero APRN [phone] Patient/Caregiver Goals of Treatment: He wants to [...] transition of care planning. Janis Hooper Pager: [phone] documented in this encounter Plan of Treatment Not on file documented as of this encounter Visit Diagnoses Not on filedocumented in this encounter Care Teams Waste/Materials Exchange Specialist Relationship Specialty Start Date End Date Leticia Valero APRN PCP - General Family Medicine 03/18/17 12/16/18 documented as of this encounter
--- OUTSIDE RECORDS SUMMARY | 2024-04-08 10:05 | XMS_ITS | Encounter Summary ---
[place] [address] Care Team Providers Care Steel Chipper Name Role Phone Jeff Lane MD Primary Care Provider [phone] Reason for Visit * Reason Comments Post-op Problem infection * Auth/Cert Specialty Diagnoses / Procedures Referred By Contac t Referred To Contact Diagnoses Right knee pain Status post total knee replacement, right Status post total knee replacement, right with Dr. lFeming (02/22/16) Procedures obsvo Referral ID Status Reason Start Date Expiration Date Visits Re quested Visits Authorized [id number] 1 1 Encounter Details Date Type Department Care Team (Late st Contact Info) Description 02/24/2016 7:43 PM EDT - 02/25/2016 5:00 PM EDT Emergency 3 [place] [address] Kole Ponce, [facility] [place] [address] Александр Everett MD [facility] [place] [address] Status post total knee replacement, right with [...] Yvan Maddox Patient Age: 41 y.o. Language: Albanian Race: White Ethnicity: Not nor Admit date: 02/24/2016 Discharge date and time: 02/25/2016 Attending Physician: Александр Everett MD Discharge Physician: Александр Everett MD Follow-up Recommendations for Providers: Future Appointments Date Time Provider Department Center 03/26/2016 2:00 PM [facility] DX ROOM 4 [facility]ray [facility] 03/26/2016 3:00 PM Dane Fleming MD [facility] 3C [facility] Inpatient Provider Contact Information: Dane Fleming MD Orthopedics: [phone] After hours and weekends, call [facility] Gis Administrator, , and have the Orthopedic resident paged.After hours and weekends, call [facility] Gis Administrator, , and have Orthopedic resident paged. Discharge [...] Heart Rate: [81-109] Blood Pressure BP: 143/88 @[id number]@ Respiratory Rate Resp: 16 Resp: [16-34] SpO2 SpO2: 94 % @@ Art BP BP (Arterial Line): -- Functional [...] bowel movement. You can also take an nldl-kcv-ribxgxt medication, Miralax if needed to combat constipation. [...] 1. You will have follow-up appointments at [facility] as indicated below in Future Appointment and Orders. 2. You will need to have x-rays prior to your follow-up appointment. [facility] that appointment for those x-rays. ?? Future Appointments Date Time Provider Department Center 03/26/2016 2:00 PM [facility] DX ROOM 4 Xray [facility] 03/26/2016 3:00 PM Dane Fleming MD [address] CL[facility] ? If you have questions or concerns: Friday through Friday, 8 AM - 5 PM, please call Dane Barakat MD's office at . If it is after 5 PM, the weekend, or holidays, please call and [facility]. Future Appointments and Orders Future Appointments Provider Department Dept Phone 03/26/2016 2:00 PM [facility] DX ROOM 4 [facility] Xray [phone] Please go to Hearing Care Practitioner Area 3T ([place] Location). 03/26/2016 3:00 PM Dane Fleming MD Orthopaedics [phone] Primary Care Provider: JEFF LANE MD [phone] Discharge References/Attachments None documented in this encounter [...] bowel movement. You can also take an ugdy-kmd-cjjnqzx medication, Miralax if needed to combat constipation. [...] 1. You will have follow-up appointments at [facility] as indicated below in Future Appointment and Orders. 2. You will need to have x-rays prior to your follow-up appointment. Please come to Radiology, [facility], 1 hour BEFORE that appointment for those x-rays. ?? Future Appointments Date Time Provider Department Center 03/26/2016 2:00 PM [facility] DX ROOM 4 Xray [facility] 03/26/2016 3:00 PM Dane Fleming MD [facility] Ortho 3C [facility] ? If [...] ARTHROPLASTY performed by Dane Fleming MD at [facility] MAIN OR Allergies Allergen Reactions ??? Hay [...] Dr. Karlos Mustafa MD Orthopaedic Surgery Pager: #[phone] documented in this encounter ED Notes * [...] ARTHROPLASTY performed by Dane Fleming MD at [facility] MAIN OR Social History: Patient lives with his significant other in a home with 10 LETTY. Significant other and family members will be available for support as needed after d/c. 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 multivitamin Lcrk-Me-CA-Min 1 tablet Oral Daily ??? oxyCODONE 10 [...] Nano Walker Blue Hold Sample in lab. [facility] Blood specimen (specimen) Venous Draw / Unknown 02/24/2016 8:07 PM EDT 02/24/2016 8:09 PM EDT Kole Ponce DO HEMATOLOGY ORDERABLE S [facility] [place] [address] * (ABNORMAL) Differential, Automated (02/24/2016 8:07 PM EDT) Nano aWlker Neutrophil % 67.9 % [facility] Neutrophil Absolute 9.89(H) 1.70 - 6.10 x10(3)/ L [facility] Lymph % 18.9 % [facility] Lymphocytes Abs 2.8 0.9 - 3.2 x10(3)/ L [facility] Monocyte % 9.7 % [facility] Monocyte Abs 1.4(H) 0.3 - 0.9 x10(3)/ L [facility] Eos % 2.2 % [facility] Eosinophils Abs 0.3 0.0 - 0.4 x10(3)/[facility] Basophil % 0.3 % [facility] Baso Absolute 0.0 0.0 - 0.1 x10(3)/[facility] Immature Gran % 1.00 % [facility] Comment: Immature granulocytes(IG's)percentage and absolute count will include metamyelocytes, myelocytes, and promyelocytes. Blood smears from CBCs yielding IG's will be scanned manually for concordance. If this scan disagrees with the automated IG or if promyelocytes are noted, a manual differential will be performed. Immature Gran Absolute 0.14(H) 0.00 - 0.04 x10(3)/ L [facility] Blood specimen (specimen) 02/24/2016 8:07 PM EDT 02/24/2016 8:09 PM EDT Narrative Resulting Agency Comment Spec In Lab Kole Ponce DO HEMATOLOGY ORDERABLE S [facility] [place] [address] * (ABNORMAL) Hemogram (02/24/2016 8:07 PM EDT) White Blood Cell 14.6(H) 4.0 - 9.5 x10(3)/ L [facility] Red Blood Cell 4.09(L) 4.58 - 5.54 x10(6)/mc L [facility] Hemoglobin 12.1(L) 13.7 - 16.5 gm/dL [facility] Hematocrit 36.5(L) 40.5 - 48.5 % [facility] Mean Cell Volume 89.2 82.9 - 93.1 fL [facility] Mean Cell Hemoglobin 29.6 27.5 - 32.1 pg [facility] Mean Cell Hemoglobin Concentration 33.2 32.0 - 35.7 gm/dL [facility] Platelet 276 145 - 357 x10(3)/mc L [facility] RDW Standard Deviation 44.2 36.0 - 45.0 [facility] RDW coefficient of variation 13.6 11.4 - 13.8 % [facility] Mean Platelet Volume 9.8 7.6 - 12.9 fL [facility] NRBC% auto 0.0 % [facility] NRBC Absolute 0.000 0.000 - 0.000 x10(3)/mc L [facility] Blood specimen (specimen) 02/24/2016 8:07 PM EDT 02/24/2016 8:09 PM EDT Narrative Resulting Agency Comment Spec In Lab Kole Ponce DO HEMATOLOGY ORDERABLE S Performing Organization Address City/State/[facility] Co de Phone Number [facility] [address] * (ABNORMAL) Electrolytes panel (02/24/2016 8:07 PM EDT) Sodium 133(L) 135 - 145 mmol/L [facility] Potassium 3.5 3.5 - 5.0 mmol/L [facility] Comment: Please note: ??Patients with WBC >100,000 may have falsely elevated Potassium levels. ??For accurate Potassium quantification in these patients send serum separator tube (gold top) for subsequent determinations. ??Contact the Clinical Chemistry Laboratory if there are any questions. Chloride 96(L) 98 - 107 mmol/L [facility] Carbon Dioxide 24 22 - 31 mmol/L [facility] Anion Gap 13 5 - 15 mmol/L [facility] Blood specimen (specimen) 02/24/2016 8:07 PM EDT 02/24/2016 8:09 PM EDT Narrative Resulting Agency Comment Spec In Lab Kole Ponce DO CHEMISTRY ORDERABLES [facility] [address] * (ABNORMAL) BLOOD GAS 2 VENOUS (02/24/2016 8:06 PM EDT) pH, Venous 7.50(H) 7.32 - 7.42 [facility] PCO2, Venous 34(L) 41 - 51 mmHg [facility] PO2, Venous 21(L) 25 - 40 mmHg [facility] Bicarbonate, Venous 26.2 mmol/L [facility] Base Excess, Venous 3.3 mmol/L [facility] Hgb Blood Gas 13.3(L) 13.7 - 16.5 gm/dL [facility] Oxyhemoglobin, Venous 41.6 % [facility] Carboxyhemoglob in, Venous 1.3 % [facility] Comment: Nonsmokers: 0.5-1.5% COHB Smokers: Variable, but usually less than 10% Toxic: 20-30% COHB Lethal: Greater than 60% COHB Methemoglobin, Venous 0.1 <=1.5 % [facility] Na Whole Blood 137 135 - 145 mmol/L [facility] K Whole Blood 3.5 3.5 - 5.0 mmol/L [facility] Comment: Please note: Patients with WBC >100,000 may have falsely elevated Potassium levels. Contact the Clinical Chemistry Laboratory if there are any questions. ICa Whole Blood 1.17 1.15 - 1.33 mmol/L [facility] Comment: Note: ??Total bilirubin higher than 20 mg/dL may lead to falsely low ionized calcium. CL Whole Blood 101 98 - 107 mmol/L [facility] Gluc Whole Bld 95 65 - 199 mg/dL [facility] Comment:Diabetes: >=200 mg/d L plus symptoms Lactate WB 2.5(H) 0.5 - 2.2 mmol/L [facility] Blood Gas Source Venous [facility] Temperature, Venous 37.7 Celsius [facility] Blood specimen (specimen) 02/24/2016 8:06 PM EDT 02/24/2016 8:06 PM EDT Emergency Dept POINT OF CARE TEST ORDERABLES Performing Organization Address City/State/[facility] Co de Phone Number [facility] [address] documented in this encounter Visit Diagnoses Diagnosis [...] 02/25/2016 9:08 AM EDT 2 mg multivitamin Eixi-Ym-IR-Min (THERAPEUTIC-M) 27-0.4 mg tablet 1 tablet 1 [...] - Provid er: Monica Cordova RN) multivitamin Vdws-Gy-HZ-Min (THERAPEUTIC-M) 27-0.4 mg tablet 1 tablet 1 [...] Unit) documented in this encounter Care Teams Steel Chipper Relationship Specialty Start Date End Date Jeff Lane MD [facility] [address] [place] [address] PCP - General General Internal Medicine 11/07/1509/16 documented as of this encounter
--- OUTSIDE RECORDS SUMMARY | 2024-04-08 10:05 | XMS_ITS | Encounter Summary ---
Author Organization [facility] [place] [address] Care Team Providers Care Double Head Machine Operator Name Role Phone Jeff [place] MD Primary Care Provider [phone] Encounter Details Date Type Department Care Team (Latest Contact Info) Description 02/19/2016 1:56 PM EDT - 02/19/2016 11:59 PM EDT Hospital Encounter XRay at [address] [place] [address] Dane Fleming MD [facility] [place] [address] Post-traumatic osteoarthritis of right knee Discharge Disposition: [...] leg documented in this encounter Care Teams Double Head Machine Operator Relationship Specialty Start Date End Date Jeff Sherman MD [facility] [address] [place] [address] PCP - General General Internal Medicine 11/07/1509/16 documented as of this encounter
--- OUTSIDE RECORDS SUMMARY | 2024-04-08 10:05 | XMS_ITS | Encounter Summary ---
[place] [address] Care Team Providers Care Physiatrist Name Role Phone Jeff Sherman MD Primary Care Provider [phone] Reason for Visit * Reason Comments Aftercare Of Tjr right TKA 02/22/2016 Encounter Details Date Type Department Care Team (Late st Contact Info) Description 03/26/2016 3:00 PM EST Office [place] [address] Dane Fleming MD [facility] [place] [address] Status post total knee replacement, right with [...] of interval change on films. Questionnaire Responses: [facility] Surgical Postop Visit 03/26/2016 PROMIS-10 General Health [...] knee surgery Yes Where was ER [facility]? [facility] Date of ER visit 01/25/2016 Reason for ER visit in alot of pain Admitted to hospital since recent ortho surgery Yes [facility] Date of admission 01/26/2016 Discharge date 01/27/2016 Reason you went to hospital alot of pain and swellingin my right knee Additional surgery on same body part No [facility] Response 03/26/2016 KOOS-PS Scores 44 Spine [facility] [...] (02/22/16) documented in this encounter Care Teams Physiatrist Relationship Specialty Start Date End Date Jeff Sherman MD [facility] [address] [place] [address] [place] [address] PCP - General General Internal Medicine 11/07/1509/16 documented as of this encounter
--- OUTSIDE RECORDS SUMMARY | 2024-04-08 10:05 | XMS_ITS | Encounter Summary ---
[place] [address] Care Team Providers Care Engine Buildup Mechanic Name Role Phone Jeff Sherman MD Primary Care Provider [phone] Reason for Visit * Reason Comments Right Knee Pain Encounter Details Date Type Department Care Team (Latest Contact Info) Description 02/19/2016 2:00 PM EDT Office [place] [address] Dane Fleming MD [facility] DR [place] [address] Presence of right artificial knee joint; Post-traumatic [...] ECG No previous ECGs available Questionnaire Response [facility] Surgical Preop Visit 12/12/2015 PROMIS-10 General Health [...] steroids or cortisone KOOS-PS Scores 51.2 [facility] Response 12/12/2015 KOOS-PS Scores 51.2 Spine [...] leg documented in this encounter Care Teams Engine Buildup Mechanic Relationship Specialty Start Date End Date Jeff Sherman MD [facility] [address] [place] [address] PCP - General General Internal Medicine 11/07/1509/16 documented as of this encounter
--- OUTSIDE RECORDS SUMMARY | 2024-04-08 10:05 | XMS_ITS | Encounter Summary ---
[place] [address] Care Team Providers Care Bobbin Fixer Name Role Phone Leticia Valero MESERET Primary Care Provider Reason for Visit * Reason Comments Follow-up R TKA Encounter Details Date Type Department Care Team (Late st Contact Info) Description 03/18/2017 9:40 AM EDT Office Visit [place] [address] Dane Fleming MD [facility] [place] [address] Status post right knee replacement (Primary Dx); [...] this encounter Progress Notes * Laureen Martins, ANALYSIS LEAD - 03/18/2017 9:40 AM EDT Arthroplasty/Orthopaedic History: [...] obtained today this may be positional. Questionnaire Responses:[facility] Surgical Postop Visit 03/18/2017 PROMIS-10 General Health [...] knee surgery Yes Where was ER located? [facility] Date of ER visit 02/25/2016 Reason for ER visit pain and inflammation Admitted to hospital since recent ortho surgery Yes [facility] Date of admission 02/25/2016 Discharge date 02/26/2016 Reason you went to hospital pain and inflamation Additional surgery on same body part No TKA Grade 6 Pain in other KNEE None Back pain at this moment None Satisfaction with Treatment Satisfied Choose Same Treatment Again Definitely yes Some recent data might be hidden [facility] Response 03/18/2017 KOOS JR Scores 50.01 Some [...] XR Knee Standing Alignment AP Lat [place] Right (07/21/2017 2:01 PM EST) Anatomical Region [...] Rate Automated 7 0 - 15 mm/hr [facility] Blood specimen (specimen) 03/18/2017 9:59 AM EDT 03/18/2017 10:07 AM EDT Narrative Resulting Agency Comment Spec In Lab Laureen Martins APRN HEMATOLOGY ORDERABL ES [facility] [place] [address] * CRP, acute inflammation (03/18/2017 9:59 AM EDT) C-Reactive Protein 0.8 <=4.9 mg/L [facility] Blood specimen (specimen) 03/18/2017 9:59 AM EDT 03/18/2017 10:07 AM EDT Narrative Resulting Agency Comment Spec In Lab Laureen Stiles Eliezer ANALYSIS LEAD CHEMISTRY ORDERABLE S [facility] [place] [address] documented in this encounter Visit Diagnoses Diagnosis Status post right knee replacement- Primary Status post total knee replacement, right with Dr. Fleming (02/22/16) Instability of knee joint, right Status post right knee replacement documented in this encounter Care Teams Bobbin Fixer Relationship Specialty Start Date End Date Leticia Valero APRN PCP - General Family Medicine 03/18/17 12/16/18 documented as of this encounter
--- OUTSIDE RECORDS SUMMARY | 2024-04-08 10:05 | XMS_ITS | Encounter Summary ---
[place] [address] Care Team Providers Care Global Professional Name Role Phone Jeff Sherman MD Primary Care Provider [phone] Reason for Visit * Reason Comments Aftercare Of Tjr R TKA 03/07/16 Encounter Details Date Type Department Care Team (Late st Contact Info) Description 07/17/2016 2:30 PM EST Office [place] [address] Dane Fleming MD [facility] [place] [address] Status post total knee replacement, right with [...] this encounter Progress Notes * Laureen Martins, MANAGER CONTRACTING - 07/17/2016 2:30 PM EST Arthroplasty/Orthopaedic History: [...] 5 X-RAYS: No new images. Questionnaire Responses: [facility] Surgical Postop Visit 07/17/2016 PROMIS-10 General Health [...] knee surgery Yes Where was ER located? [facility] Date of ER visit 02/24/2016 Reason [...] Choose Same Treatment Again Probably no [facility] Response 07/17/2016 KOOS JR Scores 54.84 Spine [facility] Response 07/17/2016 KOOS JR Scores 54.84 ASSESSMENT/PLAN: [...] Primary documented in this encounter Care Teams Global Professional Relationship Specialty Start Date End Date Jeff Sherman MD [facility] [address] [place] [address] PCP - General General Internal Medicine 11/07/1509/16 documented as of this encounter
--- OUTSIDE RECORDS SUMMARY | 2024-04-08 10:05 | XMS_ITS | Encounter Summary ---
[place] [address] Care Team Providers Care Accounts Receivable Accountant Name Role Phone AnjumLeticia Leonides CARL Primary Care Provider Reason for Visit * Reason Onset Date Comments Pre Procedure Call 03/28/2017 Encounter Details Date Type Department Care Team (Late st Contact Info) Description 03/28/2017 Telephone [place] [address] Dane Fleming MD [facility] [place] [address] Pre Procedure Call Social History Tobacco Use [...] right knee replacement. To schedule please call [phone] documented in this encounter Plan of Treatment Not on file documented as of this encounter Visit Diagnoses Not on filedocumented in this encounter Care Teams Accounts Receivable Accountant Relationship Specialty Start Date End Date Leticia Valero APRN PCP - General Family Medicine 03/18/17 12/16/18 documented as of this encounter
--- OUTSIDE RECORDS SUMMARY | 2024-04-08 10:05 | XMS_ITS | Encounter Summary ---
[place] [address] Care Team Providers Care Manager Of Financial Reporting Name Role Phone Jeff Sherman MD Primary Care Provider [phone] Reason for Visit * Reason Onset Date Comments Bumped Appointment 08/28/2016 Encounter Details Date Type Department Care Team (Late st Contact Info) Description 08/28/2016 Telephone [place] [address] Dane Fleming MD [facility] [address] ORTHOPAEDIC [place] [address] Bumped Appointment Social History Tobacco Use Types [...] on filedocumented in this encounter Care Teams Manager Of Financial Reporting Relationship Specialty Start Date End Date Jeff Sherman MD [facility] [address] [place] [address] PCP - General General Internal Medicine 11/07/1509/16 documented as of this encounter
--- OUTSIDE RECORDS SUMMARY | 2024-04-08 10:06 | XMS_ITS | Encounter Summary ---
Author Organization [facility] [place] [address] Care Team Providers Care Fleet Administrator Name Role Phone Jeff Sherman MD Primary Care Provider [phone] Encounter Details Date Type Department Care Team (Latest Contact Info) Description 11/13/2015 3:41 PM EDT - 11/13/2015 11:59 PM EDT Hospital Encounter XRay at [address] [place] [address] Trever Henderson MD [facility] [place] [address] Post-traumatic osteoarthritis of right knee; Primary osteoarthritis [...] Joint Team Standing Alignment AP Lat Schuss [place] Bilateral (11/13/2015 3:58 PM EDT) Anatomical Region [...] leg documented in this encounter Care Teams Fleet Administrator Relationship Specialty Start Date End Date Jeff Sherman MD [facility] [address] [place] [address] PCP - General General Internal Medicine 11/07/1509/16 documented as of this encounter
--- OUTSIDE RECORDS SUMMARY | 2024-04-08 10:06 | XMS_ITS | Encounter Summary ---
[place] [address] Care Team Providers Care Freelance Digital Project Manager Name Role Phone Jeff Sherman MD Primary Care Provider Encounter Details Date Type Department Care Team (Late st Contact Info) Description 02/15/2016 [place] [address] Dane Fleming MD [facility] DR [place] [address] Social History Tobacco Use Types Packs/Day Years [...] on filedocumented in this encounter Care Teams Freelance Digital Project Manager Relationship Specialty Start Date End Date Jeff Sherman MD [facility] [address] [place] [address] PCP - General General Internal Medicine 11/07/1509/16 documented as of this encounter
--- OUTSIDE RECORDS SUMMARY | 2024-04-08 10:06 | XMS_ITS | Referral Summary ---
Author Organization [facility] Address [address] [place] [address] Care Team Providers Care Dog Pound Attendant Name Role Phone Teresa Field CHRISTOPHER Primary Care Provider [phone] Allergies No known active allergies Medications omeprazole (PRILOSEC) 20 mg capsule Take 20 [...] Recorded Sex Assigned at Not on file Legal Sex Male 14:51 EDT Gender Identity Male 06/28/2021 11:03 EST Sexual [...] - Plan of Treatment Not on file Insurance 1 [place] [address] MEDICAID [place] Care Teams Dog Pound Attendant Relationship Specialty Start Date End Date [place] [address] [facility] - General 06/28/21
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
--- OUTSIDE RECORDS SUMMARY | 2024-04-08 10:06 | XMS_ITS | Encounter Summary ---
Author Organization [facility] Address [address] [place] [address] Care Team Providers Care Commercial Lease Administrator Name Role Phone Unknown, Provider Primary Care Provider Teresa Foley Primary Care Provider [phone] Encounter Details Date Type Department Care Team (Late st Contact Info) Description 05/17/2019 Lab Requisition [facility] Pathology & Laboratory Medicine - [address] [address] Unknown, Provider, Social History Tobacco Use Types [...] Salmonella PCR Negative Negative 05/18/2019 10:30 EST [facility] Shigella/Enteroin vasive E. coli Negative Negative 05/18/2019 10:30 EST [facility] HN LAB CAMPYLOBACTER PCR Negative Negative 05/18/2019 10:30 EST [facility] Shiga Toxin PCR Negative Negative 9 10:30 EST [facility] Feces 05/16/2019 22:3 0 EST 05/17/2019 21:34 EST us Provider Unknown MICROBIOLOGY - GENERAL ORDER KONSTANTIN Final Result [facility] [address] [place] [address] documented in this encounter Visit Diagnoses Not on filedocumented in this encounter Care Teams Commercial Lease Administrator Relationship Specialty Start Date End Date Unknown, Provider, PCP - General 08/27/15 06/27/21 Teresa Field FNP [facility] [place] [address] PCP - General 06/28/21 documented as of this encounter
--- OUTSIDE RECORDS SUMMARY | 2024-04-08 10:06 | XMS_ITS | Encounter Summary ---
Author Organization [facility] [place] [address] Care Team Providers Care Faith Doctor Name Role Phone Ayad Roque MD Primary Care Provider [phone] Encounter Details Date Type Department Care Team (Late st Contact Info) Description 11/11/2014 - 11/11/2014 11:59 PM EDT Hospital Encounter Radiology Library at [facility] [place] [address] [facility] Discharge Disposition: Home Social History [...] DX Knee (11/11/2014 12:00 AM EDT) Narrative [facility] - 11/08/2015 11:30 AM EDT This exam is for storage only and is auto-finalizing. Dr Lawson [facility] FILM LIBRARY ORD ERABLES DH [place], [place] documented in this encounter Visit Diagnoses Diagnosis Pain Generalized pain documented in this encounter Care Teams Faith Doctor Relationship Specialty Start Date End Date Ayad Roque MD [address] [place] [address] PCP - General 04/10/10 11/06/15 documented as of this encounter
--- OUTSIDE RECORDS SUMMARY | 2024-04-08 10:06 | XMS_ITS | Encounter Summary ---
[place] [address] Care Team Providers Care Catshovel Driver Name Role Phone Jeff Sherman MD Primary Care Provider [phone] Reason for Referral * Physical Therapy (Routine) - Specialty Diagnoses / Procedures Referred By Contac t Referred To Contact Physical Therapy Diagnoses Post-traumatic osteoarthritis of right knee Primary osteoarthritis of right knee Laureen Martins APRN [facility] [place] [address] Referral ID Status Reason Start Date Expiration Date V isits Requested Visits Authorized [id number] Evaluate and Treat 11/13/2015 05/11/2016 12 12 Reason for Visit * Reason Comments Right Knee Pain * Consultation (Routine) - Closed Specialty Diagnoses / Procedures Referred By Contac t Referred To Contact Orthopaedics Diagnoses Degenerative joint disease Jeff Sherman MD [facility] [address] [place] [address] [place] [address] [facility] [address] [place] [id number] Referral ID Status Reason Start Date Expiration Date V isits Requested Visits Authorized [id number] Closed Consult, Test & Treat [facility] 11/08/2015 11/07/2016 1 1 Encounter Details Date Type Department Care Team (Latest Contact Info) Description 11/13/2015 2:00 PM EDT Office [place] [address] Laureen Martins, POLICE JUSTICE [facility] DR ORTHOPAEDIC SURGERY [place] [phone] Primary osteoarthritis of right knee (Primary Dx); [...] Jeff Sherman MD [facility] [address] [facility] [place] [address] I.D.: Yvan Maddox is a 40 y.o. [...] Less than $10,000 # People Supported 4 Luxembourger, , No, not Luxembourger// Race White Currently working Yes Current job situation Full-time No flowsheet data found. No flowsheet data found. ALLERGIES Allergies not on file Allergies to metals: none reported. SOCIAL HISTORY: Occupation: [employer] M[employer]IES: Patient Active Problem [...] Right knee Synvisc ONE injection: Lot # [id number] Expiration: 06/2018. Prior to beginning , a [...] Synvisc one. Patient tolerated this procedure well. Tubi-sheltered workshop worker was applied and he tolerated this well. [...] Joint Team Standing Alignment AP Lat Schuss [place] Bilateral (11/13/2015 3:58 PM EDT) Anatomical Region [...] mg documented in this encounter Care Teams Catshovel Driver Relationship Specialty Start Date End Date Jeff Sherman MD [facility] [address] [place] [address] PCP - General General Internal Medicine 11/07/1509/16 documented as of this encounter
--- OUTSIDE RECORDS SUMMARY | 2024-04-08 10:06 | XMS_ITS | Encounter Summary ---
Author Organization [facility] Address [address] [place] [address] Care Team Providers Care Housekeeper Head Name Role Phone Unknown, Provider Primary Care Provider Teresa Foley Primary Care Provider [phone] Encounter Details Date Type Department Care Team (Late st Contact Info) Description 05/17/2019 Lab Requisition [facility] Pathology & Laboratory Medicine - [address] [address] Peggy Brennan, DO [address] [place] [address] [place], [place] [id number] Encounter for other general examination Social History [...] with no specific pathologic features. 05/20/2019 11:09 [facility] at [address] Clinical History Acute colitis GERD Mod-severe esophagitis Hiatal hernia (small) Possible Carter's (pending path) Poss Crohn's 05/20/2019 11:09 [facility] Attestation There was significant resident/fellow involvement in the diagnostic evaluation of this case. By the signature below, the attending physician certifies that they have personally conducted a gross and/or microscopic examination of the described specimens and rendered or confirmed the above diagnosis. 05/20/2019 11:09 [facility] at 110[address] Gross Description A. [...] J1. Tigist Titus 05/17/2019 17:47 05/20/2019 11:09 [facility] Resident/Ajay w: Theron Varner MD 05/20/2019 11:09 [facility] Scanned Images 05/20/2019 11:09 [facility] Tissue SPECIMEN FROM RECTUM / [...] Unknown 05/17/2019 11:35 EST 05/17/2019 17:27 EST us Peggy Brennan DO PATHOLOGY ORDERABLES Final Re sult [facility] [address] [place] [address] documented in this encounter Visit Diagnoses Diagnosis Encounter for other general examination documented in this encounter Care Teams Housekeeper Head Relationship Specialty Start Date End Date Unknown, Provider, PCP - General 08/27/15 06/27/21 Teresa Field FNP [place] [place] [address] PCP - General 06/28/21 documented as of this encounter
--- OUTSIDE RECORDS SUMMARY | 2024-04-08 10:06 | XMS_ITS | Encounter Summary ---
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
--- OUTSIDE RECORDS SUMMARY | 2024-04-08 10:06 | XMS_ITS | Encounter Summary ---
[place] [address] Care Team Providers Care Screed Operator Name Role Phone Jeff Sherman MD Primary Care Provider [phone] Encounter Details Date Type Department Care Team (Late st Contact Info) Description 12/30/2015 Telephone [place] [address] Rufus-Janis Birch Social History Tobacco Use Types [...] PT and provide that information to the payroll human resources assistant at pre-op phone call. Pt was encouraged to call with any questions. Pt was sent an ADV DIR. Pt was sent [place] Choice for [place] application. documented in this encounter Plan of Treatment Not on file documented as of this encounter Visit Diagnoses Not on filedocumented in this encounter Care Teams Screed Operator Relationship Specialty Start Date End Date Jeff Sherman MD [facility] [address] [place] [address] PCP - General General Internal Medicine 11/07/1509/16 documented as of this encounter
--- OUTSIDE RECORDS SUMMARY | 2024-04-08 10:06 | XMS_ITS | Encounter Summary ---
Author Organization [facility] Address [address] [place] [address] Care Team Providers Care Gusset Maker Name Role Phone Teresa Field CHRISTOPHER Primary Care Provider [phone] Reason for Visit * Reason Onset Date Comments Appointment Related 07/11/2021 Encounter Details Date Type Department Care Team (Late st Contact Info) Description 07/11/[address] [facility] Acute Care Surgery - [facility] [address] [place], [place] [id number] Trauma Surgery, Ep5 Acs MD Appointment Related [...] encounter Miscellaneous Notes * Telephone Encounter - Sam Denny - 07/11/2021 1501 EST Patient calling to cancel tomorrows appointment as they don't need it, all is healing well Thanks for update, visit cancelled ~ GABRIELLA PARRA RN documented in this encounter Plan of Treatment Not on file documented as of this encounter Visit Diagnoses Not on filedocumented in this encounter Care Teams Gusset Maker Relationship Specialty Start Date End Date Teresa [place] [address] PCP - General 06/28/21 documented as of this encounter
--- OUTSIDE RECORDS SUMMARY | 2024-04-08 10:06 | XMS_ITS | Encounter Summary ---
Author Organization [facility] Address [address] [place] [address] Care Team Providers Care Organic Chemist Name Role Phone Unknown, Provider Primary Care Provider Teresa Foley Primary Care Provider [phone] Encounter Details Date Type Department Care Team (Late st Contact Info) Description 05/17/2019 Lab Requisition [facility] Pathology & Laboratory Medicine - [address] [address] Unknown, Provider, Social History Tobacco Use Types [...] JULIAN Interpretation Negative Negative 2018 14:39 EST [facility] Blood VENOUS BLOOD / Unknown Venipuncture / Unknown 05/16/2019 15:15 EST 05/17/2019 15:29 EST Narrative [facility] - 05/18/2019 14:39 EST Results were obtained with the eSightVA NOVA Lite HEp-2 JULIAN Kit by indirect immunofluorescence. us Provider Unknown IMMUNOLOGY AND SEROLOGY [place] Final Result [facility] [address] [place] [address] documented in this encounter Visit Diagnoses Not on filedocumented in this encounter Care Teams Organic Chemist Relationship Specialty Start Date End Date Unknown, Provider, PCP - General 08/27/15 06/27/21 Teresa Field FNP [facility] [place] [address] PCP - General 06/28/21 documented as of this encounter
--- OUTSIDE RECORDS SUMMARY | 2024-04-08 10:06 | XMS_ITS | Encounter Summary ---
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 He has had no fevers, [...] Household Income - # People Supported - Ukrainian, , - Race - Currently working - Current job situation - [employer] Response 12/12/2015 KOOS-PS Scores 51.2 No flowsheet [...] (Bezet) 403 ms MUSE SYSTEM Calculated P [place] 42 degrees MUSE SYSTEM Calculated R [place] 36 degrees MUSE SYSTEM Calculated T [place] 52 degrees MUSE SYSTEM INTERPRETATION Sinus bradycardia [...] intervals supplied above were not validated at [facility]. Results from pediatric patients should be interpreted [...] the following links into your internet browser. [email or web address] Blood specimen (specimen) 02/19/2016 1:00 PM EDT 02/19/2016 1:36 PM EDT Narrative Resulting Agency Comment Spec In Lab Dane Fleming MD CHEMISTRY ORDERABLES [facility] [place] [id number] documented in this encounter Visit Diagnoses Diagnosis Post-traumatic osteoarthritis of right knee Secondary localized osteoarthrosis, lower leg Post-traumatic osteoarthritis of right knee Secondary localized osteoarthrosis, lower leg documented in this encounter Care Teams Salesperson Yard Goods Relationship Specialty Start Date End Date Jeff Sherman MD [facility] [address] [place] [address] PCP - General General Internal Medicine 11/07/1509/16 documented as of this encounter
--- OUTSIDE RECORDS SUMMARY | 2024-04-08 10:06 | XMS_ITS | Encounter Summary ---
Author Organization [facility] [place] [address] Care Team Providers Care Antisqueak Applier Name Role Phone Ayad Roque MD Primary Care Provider [phone] Encounter Details Date Type Department Care Team (Late st Contact Info) Description 09/25/2015 - 09/25/2015 11:59 PM EDT Hospital Encounter Radiology Library at [facility] [address] [facility] Discharge Disposition: Home [...] DX Knee (09/25/2015 12:00 AM EDT) Narrative [facility] - 11/08/2015 11:28 AM EDT This exam is for storage only and is auto-finalizing. Dr Lawson [facility] FILM LIBRARY ORD ERABLES DH [place], [place] documented in this encounter Visit Diagnoses Diagnosis Pain Generalized pain documented in this encounter Care Teams Antisqueak Applier Relationship Specialty Start Date End Date Ayad Roque MD [address] [place] [address] PCP - General 04/10/10 11/06/15 documented as of this encounter
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
--- OUTSIDE RECORDS SUMMARY | 2024-04-08 10:06 | XMS_ITS | Clinical Summary ---
Author Organization [facility] Address [address] [place] [address] Care Team Providers Care Brush Cleaner Name Role Phone Teresa Field CHRISTOPHER Primary Care Provider [phone] Allergies No known active allergies Medications omeprazole [...] - 19+ 3-dose series) 02/10 COVID-19 Vaccine (2023- season) 2024 Insurance MEDICAID [facility] [place] Care Teams Brush Cleaner Relationship Specialty Start Date End Date Teresa Field FNP [place] [address] PCP - General 06/28/21
[2024-04-08 10:29] LABS: Abs Immature Grans 0.03 10^3/uL (0.0-0.06); Absolute Basophil Count 0.07 10^3/uL (0.0-0.2); Absolute Eosinophil Count 0.44 10^3/uL (0.0-0.7); Absolute Lymphocyte Count 1.72 10^3/uL (1.2-3.4); Absolute Monocyte Count 0.37 10^3/uL (0.1-0.8); Absolute Neutrophil Count 7.45 10^3/uL (1.2-6.7); Basophils % 0.7 %; Eosinophils % 4.4 %; HCT 49.7 % (40.0-50.0); HGB 16.2 g/dL (13.5-17.5); Immature Grans % 0.3 %; Lactate 1.5 mmol/L (0.6-1.4); Lymphocytes % 17.1 %; MCH 29.8 pg (27.0-33.0); MCHC 32.6 % (32.0-36.0); MCV 92 fL (80-95); MPV 9.8 fL (8.0-11.0); Monocytes % 3.7 %; Neutrophils % 73.8 %; Platelet Count 286 10^3/uL (130-400); RBC 5.43 10^6/uL (4.36-5.78); RDW 14.4 % (11.8-14.1); RDW-SD 48.5 fL; WBC 10.08 10^3/uL (4.4-10.8)
[2024-04-08] MEDS: Pantoprazole 40 MG VIAL IVP (10:36)
[2024-04-08] MEDS: Normal Saline - Diluent 50 ML VIAL IJ (10:45)
[2024-04-08] MEDS: Omnipaque 350 MG/ML 100 ML BTL IJ (10:47)
--- NOTE | 2024-04-08 10:47 | DI.CT_ITS ---
Exam(s) CT ABDOMEN PELVIS CTA EXAM: CT ABDOMEN PELVIS CTA CLINICAL HISTORY: brb stool. TECHNIQUE: Imaging Protocol: Axial computed tomography images with coronal and sagittal reformatted images were created and reviewed CONTRAST MATERIAL: Intravenous: Omnipaque 350 Contrast volume:100 ml Oral: None COMPARISON: CT CT BRAIN NECK CTA from 08/30/2020 FINDINGS: AORTA: No evidence of abdominal aortic aneurysm nor dissection. No aneurysms of the iliac arteries n o dissection in the aortoiliac segments.Celiac and superior mesenteric arteries patent without signif icant stenosis and also patency the inferior mesenteric artery. There is no significant stenosis in the renal arteries nor at the aortic bifurcation. There is some radiopaque material evident within distal small bowel loops and proximal colon which is most probably related to ingested material. ABDOMEN: There is no ascites. LIVER: There are no obvious focal hepatic lesions nor dilatation of intrahepatic ducts. GALLBLADDER/BILIARY: No obvious gallbladder pathology. CBD is not dilated. PANCREAS: No evidence of pancreatic mass nor dilatation of the pancreatic duct. SPLEEN: Spleen is not enlarged. There are no intrasplenic lesions. ADRENALS: There are no significant adrenal masses. KIDNEYS: There is a benign cysts in the inferior pole region of the left kidney measuring 1.5 x 1.3 c m. Does not require further workup. No other cysts and no solid lesions in the kidneys. No calculi nor hydronephrosis. No hydroureter.. ABDOMINAL AORTA: See above LYMPH NODES: There is no retroperitoneal nor para-aortic adenopathy. No obvious mesenteric masses. ABDOMINAL WALL: No evidence of significant anterior abdominal wall hernia. GI: There is no evidence of bowel obstruction, free air, nor abscess.There is sigmoid diverticuli wit hout evidence of obvious acute diverticulitis. No obvious colitis pattern. PELVIS: LYMPH NODES: There is no intrapelvic nor inguinal adenopathy. GI: Appendix not visualized. No obvious evidence of appendicitis. URINARY BLADDER: No calculi nor masses evident REPRODUCTIVE: Prostate size normal. Seminal vesicles unremarkable. OSSEOUS: No significant osseous lesions. No fractures. IMPRESSION: 1. There is sigmoid diverticuli. No evidence of obvious acute diverticulitis. 2. No obvious colitis pattern, given the history here. 3. There no acute extravasation of intraluminal contrast to identify acute active GI bleeding source . There is dense material seen within the right-side of the colon as well as within some nondilated small bowel loops. This is most probably related to ingested material by the patient. Called by myself to ER provider 04/08/2024 at 11:20 a.m. RADIATION DOSE DELIVERED: 226.09mGy.cm Total DLP DATA REPOSITORY: All CT scans at this facility are submitted to the National Radiology Data Registry (NRDR) Dose Index Registry (DIR) with the [employer] (ACR). RADIATION OPTIMIZATION: All CT scans at this facility use at least one of these dose optimization te chniques: automated exposure control; mA and/or kV adjustment per patient size (includes targeted exa ms where dose is matched to clinical indication); or iterative reconstruction.
[2024-04-08 10:52] LABS: ALT 32 U/L (16-63); AST 16 U/L (15-37); Albumin 3.8 g/dL (3.4-5.0); Alkaline Phosphatase 100 U/L (46-116); Anion Gap 7.7 mmol/L (3-11); BUN 16 mg/dL (7-18); Bilirubin, Total 0.29 mg/dL (0.2-1.0); CO2 26.3 mmol/L (21.0-32.0); CREATININE 1.1 mg/dL (0.70-1.30); Chloride 109 mmol/L (98-107); Estimated GFR 82.29 (mL/min/1.73m2); Glucose 105 mg/dL (74-106); Lipase 30 U/L (16-77); Potassium 4.4 mmol/L (3.5-5.1); Sodium 143 mmol/L (136-145); Total Protein 8.1 g/dL (6.4-8.2)
[2024-04-08 10:57] LABS: Calcium 9.7 mg/dL (8.5-10.1)
--- NOTE | 2024-04-08 13:33 | ED.GENADUL_ITS ---
Discharge Plan Disposition Patient Disposition: Against Medical Advice Condition: Stable Discharge Details Clinical Impression: Rectal bleeding Primary Care Provider: Unknown,Unknown ED Provider: Gale Nolan Home Meds and New Rx's Prescriptions: Continued omeprazole 40 mg capsule,delayed release(DR/EC) 40 mg PO DAILY Qty: 90 3RF gabapentin 300 mg capsule 300 mg PO HS Patient Comments: TAKE 1 CAPSULE BY MOUTH AT BEDTIME Discharge Instructions Instructions: Bloody Stools, Adult ED Additional Instructions: * We have recommended mended admission for colonoscopy * You have declined admission, please continue to take your Protonix and follow a clear liquid diet for the next 24 to 48 hours, please return should you have persistent bleeding or should any new concerns arise at this time I would not recommend antibiotics or additional medications As you know, if you continue to bleed you can become anemic and very ill, this can even result in Discharge Data Discharge Date/Time-TO BE ENTERED AT DEPARTURE: 04/08/24 13:50 HPI General Date/Time Provider Initiated Documentation: 04/08/24 09:59 . HPI Narrative: This 49-year-old male presents with report of bloody stool. He said 2 episodes of bright red blood in his stool since morning. He has some discomfort in his lower quadrants. He denies any fever or chills. States he had similar symptoms 4 years ago and this self resolved. Is scheduled for colonoscopy in 1 month per patient. Denies any anticoagulation or nonsteroidal use. Denies any weakness or dizziness. Denies any nausea or vomiting. Related Data Home Medications ?Medication ?Instructions ?Recorded ?Confirmed omeprazole 40 mg capsule,delayed 40 mg PO DAILY #90 caps 07/26/19 04/08/24 release gabapentin 300 mg capsule 300 mg PO HS 08/30/20 04/08/24 Previous Rx's ?Medication ?Instructions ?Recorded omeprazole 40 mg capsule,delayed 40 mg PO DAILY #90 caps 07/26/19 release Allergies Allergy/AdvReac Type Severity Reaction Status Date / Time animal dander Allergy Mild head Uncoded 04/08/24 09:53 congestion hay Allergy Unknown Uncoded 04/08/24 09:53 General Stated Complaint: GI Bleed ISIAH: 2 Course Vital Signs Vital signs: Vital Signs Temperature 36.6 C 04/08/24 09:45 Pulse 79 04/08/24 09:45 Respiratory Rate 12 04/08/24 09:45 Blood Pressure 139/86 04/08/24 09:45 Pulse Oximetry 97 04/08/24 09:45 Temperature 36.6 C 04/08/24 09:45 Temperature Source Oral 04/08/24 09:45 Pulse 59 L 04/08/24 13:01 Pulse 62 04/08/24 13:01 Respiratory Rate 21 04/08/24 13:01 Respiratory Effort Normal, Non-Labored 04/08/24 09:51 Blood Pressure 135/89 04/08/24 13:01 Blood Pressure Mean 105 04/08/24 13:01 Blood Pressure Position Sitting 04/08/24 09:45 Pulse Oximetry 97 04/08/24 13:01 Oxygen Delivery Method Room Air 04/08/24 09:45 Oxygen Flow Rate 0 04/08/24 09:45 Pain Level 2 04/08/24 09:45 Lab/Test Results Lab/Test Results: Laboratory Tests Range/Units 04/08/24 10:19 WBC (4.4-10.8) 10^3/uL 10.08 RBC (4.36-5.78) 10^6/uL 5.43 Hgb (13.5-17.5) g/dL 16.2 Hct (40.0-50.0) % 49.7 MCV (80-95) fL 92 MCH (27.0-33.0) pg 29.8 MCHC (32.0-36.0) % 32.6 RDW (11.8-14.1) % 14.4 H Plt Count (130-400) 10^3/uL 286 MPV (8.0-11.0) fL 9.8 Immature Gran % % 0.3 Neutrophils % % 73.8 Lymphocytes % % 17.1 Monocytes % % 3.7 Eosinophils % % 4.4 Basophils % % 0.7 Nucleated RBC % (0.0-0.3) % 0.0 Absolute Neutrophils (1.2-6.7) 10^3/uL 7.45 H Absolute Lymphocytes (1.2-3.4) 10^3/uL 1.72 Absolute Monocytes (0.1-0.8) 10^3/uL 0.37 Absolute Eosinophils (0.0-0.7) 10^3/uL 0.44 Absolute Basophils (0.0-0.2) 10^3/uL 0.07 VBG Lactate (0.6-1.4) mmol/L 1.5 H Sodium (136-145) mmol/L 143 Potassium (3.5-5.1) mmol/L 4.4 Chloride (98-107) mmol/L 109 H Carbon Dioxide (21.0-32.0) mmol/L 26.3 Anion Gap (3-11) mmol/L 7.7 BUN (7-18) mg/dL 16 Creatinine (0.70-1.30) mg/dL 1.1 Est GFR (CKD-EPI 2020) (mL/min/1.73m2) 82.29 Glucose (74-106) mg/dL 105 Calcium (8.5-10.1) mg/dL 9.7 Total Bilirubin (0.2-1.0) mg/dL 0.29 AST (15-37) U/L 16 ALT (16-63) U/L 32 Alkaline Phosphatase (46-116) U/L 100 Total Protein (6.4-8.2) g/dL 8.1 Albumin (3.4-5.0) g/dL 3.8 Lipase (16-77) U/L 30 ABO/Rh O Positive Antibody Screen NEGATIVE Medical Decision Making 49-year-old male in no acute distress hemodynamically stable CBC and CMP stable, VBG lactate negligible, less suspicion clinically for mesenteric ischemia. CT abdomen and pelvis does not show evidence of acute pathology, case discussed with Dr. Oropeza, radiologist. I recommended admission for continued observation patient has declined at this time. He does have guaiac negative stool with an overall benign appearing abdominal exam and he is hemodynamically stable and not anticoagulated. He does have an appointment scheduled in 1 month. He understands that he is leaving against our medical recommendation he has been given 40 mg of Protonix in the emergency department and will continue on his PPI at home. He is instructed follow-up with his primary care physician in the outpatient setting and to return immediately should he have new or worsening or persistent complaints. All discussions were had in the presence of patient's . Return precautions reviewed, alert, oriented, of decisional capacity, leaving against medical recommendation. Quality:SDOH Health Related Social Needs: No Data to Display PFSH All Active Problems (Updated 04/08/24 @ 13:34 by TERESA Miller) Prediabetes (Acute) Bilateral pneumonia (Acute) Cough (Acute) Strain of cervical portion of left trapezius muscle (Acute) Ischemic colitis (Acute) Rectal bleeding (Acute) Chest pain (Acute) Ischemic colitis (Acute) Hiatal hernia with GERD (Acute) Colitis (Acute) Medical History Restless leg Smoker GERD with esophagitis Shoulder pain Left rotator cuff tendinitis rule out small tear of the supraspinatus. Previous history of shoulder injury from falling off a ladder could represent a SLAP lesion although he does not have any thing on exam to suggest a SLAP lesion or instability. Will start on formal PT after the steroid injection is given today. In addition I put him on some internal rotation stretching exercises to get a head start on his PT. Follow-up with me in 4-6 weeks. He will stay out of work until he is asymptomatic. Sleep disorder Surgical History History of colonoscopy (~2019) History of nasal surgery History of total knee replacement Open Carpal Tunnel release (01/21/17) LEFT/ Social History Smoking/Tobacco Use Status: Current every day Tobacco Type: cigarettes Smoking risk assessment performed?: Yes Alcohol Intake: never Drug use: Daily Substance use type: marijuana Housing: house Do you feel safe at home: Yes Do you feel safe in your relationship?: Yes
== END 2024-04-08 13:50 | disposition left against medical advice (07) ==
PROVIDERS: Emergency Provider Physician Assistant
DX: K62.5 Hemorrhage of anus and rectum; Z79.01 Long term (current) use of anticoagulants; Z53.29 Procedure and treatment not carried out because of patient's decision for other reasons; F17.210 Nicotine dependence, cigarettes, uncomplicated
CPT/HCPCS: 80053; 83690; 86850; 86900; 86901; 93005; 96374; 99285; 74174; 83605; 85025; 93010; J2470; J3490

== ENCOUNTER 2024-05-07 06:41 | Day surgery (SDC) | payer MEDICAID, SELFPAY ==
--- NOTE | 2024-05-06 18:19 | PDOC.DSDIS_ITS ---
Date of service: 05/07/24 Discharge Plan Disposition Patient Disposition: Home Condition: Good Discharge Details Reason For Visit: screening colonoscopy Attending Provider: Ian Barreto Primary Care Provider: ADAM LEVINE Home Meds and New Rx's Prescriptions: Continued omeprazole 40 mg capsule,delayed release(DR/EC) 40 mg PO DAILY Qty: 90 3RF gabapentin 300 mg capsule 300 mg PO HS Patient Comments: TAKE 1 CAPSULE BY MOUTH AT BEDTIME Discontinued bisacodyl [Dulcolax (bisacodyl)] 5 mg tablet,delayed release (DR/EC) 5 mg PO ONCE Qty: 4 0RF Rx Instructions: Take per colonoscopy instructions provided by ordering providers office polyethylene glycol 3350 17 gram/dose powder 17 g PO ONCE Qty: 238 0RF Rx Instructions: Take per colonoscopy instructions provided by ordering providers office Discharge Instructions Instructions: Colon polyps, Diverticulosis Additional Instructions: Yvan, it was nice meeting you today, and I hope you are comfortable throughout the procedure. Everything went very smoothly. Your prep was excellent negative everything fine. I did find, and remove a single polyp today. This is quite small, nothing to worry about. This will be testing, since polyps, different varieties, we use that information to help guide the timing of your next colonoscopy. Incidentally, he also have a little bit of diverticulosis as well. Diverticula occur in weak spots of the muscular part of the colon wall, this causes the inside lining to pocket approach outwards. These can get infected during episodes that we refer to as diverticulitis. My general recommendation for patients is to maintain a diet that is rich in fiber, and to stay well- hydrated. Have attached a little bit of information here about colon polyps as well as diverticulosis. Once I have the results of the polyp report, my office will be in touch with recommendations for your next colonoscopy. If you need anything else, please do not hesitate to ask 1. If tolerated, consume a soft, low fiber diet for 1-2 days. [address] Do not drive, drink alcohol, operate machinery, make critical decisions, or do activities that require coordination or balance for 24 hours. 3. Because air was put into your colon during the procedure, expelling air from your rectum (passing gas or farting) is normal. 4. You may not have a bowel movement for 1-3 days because of the colonoscopy prep. This is normal. 5. Go directly to the emergency room if you notice any of the following: Develop chills (warm to touch), or if you have a thermometer and your temperature is above 101 Difficulty breathing or difficultly swallowing Persistent vomiting Severe abdominal pain, other than gas cramps Severe chest pain Black, tarry stools Any bleeding ? exceeding one tablespoon 6. Call your physician if the site where your intravenous was started becomes red, swollen, painful, and warm to touch. 7. Your physician has reviewed your pre-procedure medications. Please continue to take those medications as previously ordered. You will be given specific information/education regarding any changes to your medications before leaving. Activity:: Activity as Tolerated Diet:: As Tolerated Discharge Orders Discharge Orders: Discharge Order (Routine); Ordered 05/06/24 Ordered By: Ian Barreto DS: Diagnosis Discharge Diagnosis (1) Encounter for screening colonoscopy: Status: Acute Asessment and Plan: Follow-up on polypectomy results
--- NOTE | 2024-05-06 18:21 | COLE_ITS ---
Date of service: 05/07/24 Time of Service: 09:17 Colonoscopy Report Date of procedure: 05/07/24 Pre-op diagnosis general: screening colonoscopy Post-op diagnosis procedure note: other (Colon polyps, diverticulosis) Procedure: colonoscopy with polypectomy Surgeon: Ian Barreto Anesthesia Type: General:No Airway Estimated blood loss (mL): 5 Pathology: other (0.25 cm rectal polyp) Complications: None Disposition: same day Indications: Yvan is a 49 year old man with a history of ischedmic colititis who needs his next screening colonsocopy Prep: Miralax/Dulcolax Procedure Start Time: 08:50 Procedure End Time: 08:58 Retraction Time: 13 Findings: Occasional sigmoid diverticula, 0.25 cm rectal polyp Procedure Description: After the induction of anesthesia, and with the patient in left lateral decubitus position, I began by performing an external anorectal exam.? Perineum and skin were normal, as was the anal verge.? There was no evidence of external hemorrhoids.? Next, I performed a digital rectal exam.? I did not appreciate any abnormal findings.? Next, I advanced a colonoscope into the rectal vault.? I performed retroflexion.? This appeared normal. Using insufflation, I then advanced the colonoscope beyond the rectal folds and into the sigmoid colon before advancing towards the cecum.? The quality of the prep was excellent.? The scope was noted to be in the cecum by identification of the ileocecal valve and appendiceal orifice.? I then began withdrawing the colonoscope using repeated irrigation as necessary for full evaluation of the colonic mucosa. I did not see any obvious signs of ischemic colitis, and the majority of the colon mucosa appeared totally normal and healthy. The vascular pattern underneath looked normal. Once the scope was withdrawn to the level of the rectum, great care was taken to examine portions of the rectal folds.? In the upper portion of the rectal vault was a 0.5 cm flat polyp. This was removed with cold forceps without issues. Finally, the scope was withdrawn and the patient was brought to the same-day surgery recovery unit as the anesthetic wore off. ?The findings and instructions were shared with the patient prior to discharge. Courtland Bowel Prep Courtland Bowel Prep Right Colon: 3 Left Colon: 3 Transverse Colon: 3 Total Score: 9
[2024-05-07 06:58] VITALS: BP 125/76; PULSE 82; RESP 16; TEMP 36.2; O2SAT 97
[2024-05-07] MEDS: Normal Saline 500 ML 30 ML IV (07:16)
--- NOTE | 2024-05-07 07:44 | ANES.PREOP_ITS ---
General Info Date of Service Date Performed: 05/07/24 Height: 5 ft 11 in Weight: 90.9 kg Body Mass Index (BMI): 27.9 Surgical Procedure: Operation Date: 05/07/24 08:20 Proposed Procedure Side Surgeon p Miki Barreto MD Meds Allergies and Home Medications Allergies Allergy/AdvReac Type Severity Reaction Status Date / Time animal dander Allergy Mild head Uncoded 05/07/24 07:05 congestion hay Allergy Unknown Uncoded 05/07/24 07:05 Home Medication ?Medication ?Instructions ?Recorded omeprazole 40 mg capsule,delayed 40 mg PO DAILY #90 caps 07/26/19 release gabapentin 300 mg capsule 300 mg PO HS 08/30/20 Current Visit Medications: Current Medications Generic Name Dose Route Start Last Admin Trade Name Freq PRN Reason Stop Dose Admin Sodium Chloride 500 mls @ 30 mls/hr 05/07/24 06:15 05/07/24 07:16 Saline 500ml Bag IV 06/06/24 06:14 30 mls/hr INFUSION JAIME Administration IV Miscellaneous Supplies 1 each 05/07/24 06:00 Iv Access IV 06/05/24 23:59 DIRECTED JAIME Sodium Chloride 0 ml 05/07/24 06:00 Normal Saline Flush 10 Ml Syr IV 06/05/24 23:59 PRN PRN Sodium Chloride 0 ml 05/07/24 06:00 Normal Saline 10 Ml Vial IJ 06/05/24 23:59 DIRECTED PRN Sterile Water 0 ml 05/07/24 06:00 Water,Injection,Sterile 10 Ml Vial IJ 06/05/24 23:59 DIRECTED PRN PFSH Active Problems Active Problems: Problem Status Onset Code Encounter for screening colonoscopy Acute Z12.11 Prediabetes Acute R73.03 Bilateral pneumonia Acute J18.9 Cough Acute R05 Strain of cervical portion of left trapezius muscle Acute S16.1XXA Ischemic colitis Acute K55.9 Rectal bleeding Acute K62.5 Chest pain Acute R07.9 Ischemic colitis Acute K55.9 Hiatal hernia with GERD Acute K21.9, K44.9 Colitis Acute K52.9 Medical History Medical History Restless leg Smoker GERD with esophagitis Shoulder pain Left rotator cuff tendinitis rule out small tear of the supraspinatus. Previous history of shoulder injury from falling off a ladder could represent a SLAP lesion although he does not have any thing on exam to suggest a SLAP lesion or instability. Will start on formal PT after the steroid injection is given today. In addition I put him on some internal rotation stretching exercises to get a head start on his PT. Follow-up with me in 4-6 weeks. He will stay out of work until he is asymptomatic. Sleep disorder Surgical History Surgical History History of colonoscopy (~2019) History of nasal surgery History of total knee replacement Open Carpal Tunnel release (01/21/17) LEFT/ Tobacco Smoking/Tobacco Use Status: Current every day Tobacco Type: cigarettes Smoking cigarettes per day: 6 Alcohol Alcohol Intake: never Substance Use Substance use: Daily Substance use type: marijuana Vital Signs and Lab Results Vital Signs Most Recent Vital Signs in EMR: Most Recent Vital Signs Temp Pulse Resp BP Pulse Ox 36.2 C L 82 16 125/76 97 05/07/24 06:58 05/07/24 06:58 05/07/24 06:58 05/07/24 06:58 05/07/24 06:58 Lab Results Blood Type / Crossmatch: Antibody Screen NEGATIVE 04/08/24 Complete Blood Count: White Blood Count 10.08 10^3/uL (4.4-10.8) 04/08/24 10:19 Red Blood Count 5.43 10^6/uL (4.36-5.78) 04/08/24 10:19 Hemoglobin 16.2 g/dL (13.5-17.5) 04/08/24 10:19 Hematocrit 49.7 % (40.0-50.0) 04/08/24 10:19 Platelet Count 286 10^3/uL (130-400) 04/08/24 10:19 Venous Blood Lactate 1.5 mmol/L (0.6-1.4) H 04/08/24 10:19 Complete Metabolic Panel: Sodium 143 mmol/L (136-145) 04/08/24 10:19 Potassium 4.4 mmol/L (3.5-5.1) 04/08/24 10:19 Chloride 109 mmol/L (98-107) H 04/08/24 10:19 Carbon Dioxide 26.3 mmol/L (21.0-32.0) 04/08/24 10:19 BUN 16 mg/dL (7-18) 04/08/24 10:19 Creatinine 1.1 mg/dL (0.70-1.30) 04/08/24 10:19 Est GFR (CKD-EPI 2020) 82.29 (mL/min/1.73m2) 04/08/24 10:19 Calcium 9.7 mg/dL (8.5-10.1) 04/08/24 10:19 Albumin 3.8 g/dL (3.4-5.0) 04/08/24 10:19 Glucose 105 mg/dL (74-106) 04/08/24 10:19 Liver Function Panel: Alanine Aminotransferase (ALT/SGPT) 32 U/L (16-63) 04/08/24 10: 19 Aspartate Amino Transf (AST/SGOT) 16 U/L (15-37) 04/08/24 10:19 Coagulation Panel: No Data to Display Cardiac Panel: No Data to Display Arterial Blood Gas: No Data to Display Venous Blood Gas: No Data to Display Pancreas Panel: Lipase 30 U/L (16-77) 04/08/24 10:19 Thyroid Panel: No Data to Display Infectious Disease: No Data to Display Blood Cultures: No Data to Display Toxicology Panel: No Data to Display Imaging and Studies Imaging and Studies Study information below may be from another EMR and interpreted by another provider. Please see original notes in EMR for more complete details. EKG Summary: EKG PATIENT NAME: Marietta Maddox UNIT #: [id number] ORDERING PROVIDER: Gale Nolan PRIMARY CARE PROVIDER: UNKNOWN,UNKNOWN DATE/TIME OF SERVICE: 04/08/24 1056 : 1975 PERFORMING LOCATION: ER APPROVED REPORT Exam: Resting ECG Reason for Exam: gi bleed Patient Location: E HR:70 bpm ECG Measurements Heart Rate 70 AXIS TN 141 P 48 QRSd 90 QRS 30 QT 402 T49 QTc 434 Conclusion Sinus rhythm...normal P axis, V-rate 60- 99 <Electronically signed by CHARLIE CASTILLO MD in [place]> E-Sign Date: 04/08/24 E-Sign Time: 1648 ADDENDUM APPROVED REPORT Stress Test Summary: STRESS TEST PATIENT NAME: MARIETTA MADDOX UNIT #: [id number] ADMITTING PROVIDER: ELIAS HERNANDEZ MD PRIMARY CARE PROVIDER: Teresa Field DATE OF SERVICE: 05/27/19 : 1975 APPROVED REPORT Exam: Exercise Treadmill Patient Location: Out-Patient Room/Bed: Stress Nurse: Louise Caicedo RN BMI: 27.05 Baseline Rhythm: Sinus Rhythm Indications: Patient reports for the past year he has ???knifelike??? left sided chest pain with no relation to activity and no other associated symptoms at least once a month. Medical History Medical History: Hiatial Hernia, GERD Cardiac Medications: None, Allergies: Animal Dander, Hay Cardiac Risk Factors: FHX of CAD, Hyperlipidemia, Smoking Previous Cardiac Procedures: None Pretest Chest Pain Characteristics: None Exercise History: Physically active Physical Disabilities: None Lung Sounds: Clear to auscultation Heart Sounds: Regular Stress Test Details Test: Exercise stress testing was performed using a Galdino protocol. Rest Stress HR Max Heart Rate (APMHR): 176 bpm Resting HR Supine: 66 bpmTarget HR (85% APMHR): 149 bpm Resting HR Standin bpm Max HR Achieved: 160 bpm % of APMHR: 90 HR response to stress: Normal HR response to stress BP Resting BP Supine: 138/80 mmHg Resting BP Standin/80 mmHg Max BP: 190/80 mmHg BP response to stress: Normal blood pressure response to stress. ECG Resting ECG: Sinus Rhythm ST Change: Normal Ectopy: none Stress ECG: Sinus Tachycardia ST Change: Horizontal ST depression Lead(s): V5,V6 Stage: [address] Deviation: 1 mm Arrhythmia: none Recovery ECG: Sinus Rhythm Recovery ST Change: none Clinical Reason for Termination: Fatigue Stress Symptoms: None Exercise duration: 12 min38 sec Highest Stage Achieved: Stage 5: 5.0 mph at 18% grade. Exercise capacity: 13.91 METs Functional Capacity: Above average capacity Stress ECG Conclusion 1. The patient exercised for 12 minutes 38 seconds (14 METS) 2. The rate-pressure product was 30,000. 3. Patient had no symptoms during exercise and stopped due to fatigue. 4. There were transient upsloping ST depressions during stage IV of exercise. 5. This likely represents a normal stress exam. 6. The Wright Score (7) estimates an annual cardiovascular mortality of 0% and a five year survival of 95%. Using the Wright Score there is a low probability of any angiographic coronary disease. Protocol Used: Galdino Protocol Stress Test Summary STAGETime (mins)Speed (mph)Grade (%)[id number]/80 [id number]/80 [id number]/824.6 [id number]/8810.2 [id number]/9012.9 [id number] 1 min [id number]/70 3 min [id number]/80 6 min [id number]/80 Dictated by: ELIAS HERNANDEZ MD Dictated:: 05/27/19 0848 <Electronically signed by Elias Hernandez M.D. in [place]> 05/27/19 1059 Transcribed Date: Transcribed Time: By: ABNER This is privileged, confidential information, intended only for the provider named. Any use or distribution by any person other than this provider is strictly prohibited. If you receive this report in error, please notify us immediately at [phone] and return the original report to us at the address above. Thank you. Anesthesia Assessment and Plan Anesthesia History Personal History: No History of Anesthesia Complications Family History: No Family History of Anesthesia Complications Exercise Tolerance Exercise Tolerance: Metabolic Equivalents>4 Pertinent Negatives Pertinent Negatives: No Symptoms of GERD Cardiac & Pulmonary Exam Cardiac Exam: Normal S1/S2 Heart Sounds Pulmonary Exam: Clear Bilateral Breath Sounds Implantable Cardiac Device Does patient have a Pacemaker or an ICD?: No Airway Exam Known Difficult Airway: No Mallampati Class: 2 Mouth Opening: Normal (> 3cm) Thyromental Distance: Greater than 3 cm Neck Range of Motion: Full ROM Neck Circumference: Normal Teeth Condition: Generalized Poor Dentition and Loose or Chipped ASA Classification ASA Score: ASA 2 Emergency Case?: No NPO Status NPO Status: NPO Clears >2 hours, Solids >8 hours Anesthesia Plan Resuscitation Status: Full Code Anesthesia Technique: General Anesthesia Airway Planned: Natural Airway Monitors Used: Standard Monitors
[2024-05-07 07:49] VITALS: BMI 27.9
--- NOTE | 2024-05-07 09:05 | BOWEL_PTH ---
PATIENT: Yvan Maddox LOC: GET U#:[id number] AGE/SX: 49/M ROOM: RE05/07/[address]: Ian Barreto MD : 1975 BED: DIS: 05/07/2024 SPEC #: [id number] RECD: 05/07/24 10:33 STATUS: XOCHITL REQ #: [id number] STAR: 05/07/24 09:[address]: Ian Barreto DEPT: Surgical Specimen RECD BY: Gale Ro ENTERED: 05/07/24 10:34 SP TYPE: Bowel OTHR DR: ADAM LEVINE NP Tissues: 1 - BIOPSY BOWEL Procedures: GROSS AND MICRO LEVEL 4 Comments: [id number]
[2024-05-07 09:10] VITALS: BP 115/77; PULSE 73; RESP 18; TEMP 36; O2SAT 96
--- NOTE | 2024-05-07 09:26 | W.ANESPOSTOP ---
Postoperative Evaluation Date, Time and Location Date Performed: 05/07/24 Time Performed: : Patient Location: Day Surgery Unit Vital Signs Most Recent Imported Vital Signs: Most Recent Vital Signs Temp Pulse Resp BP Pulse Ox 36.0 C L 73 18 115/77 96 05/07/24 09:10 05/07/24 09:10 05/07/24 09:10 05/07/24 09:10 05/07/24 09:10 Pain Score Most Recent Pain Score: Most Recent Pain Score Pain Level 0 05/07/24 09:10 Assessment Mental Status: Awake (Alert & Oriented to Patient Baseline) Airway and Respiratory Function: Patent airway with normal (patient baseline) respiratory exam Cardiovascular Function: Hemodynamically Stable Hydration Status: Adequately Hydrated Nausea & Vomiting: No Nausea or Vomiting Pain: Pt. Denies Any Pain Peripheral Nerve Block: Patient did not receive a nerve block
[2024-05-07 09:40] VITALS: BP 113/79; PULSE 68; RESP 18; TEMP 36.8; O2SAT 97
== END 2024-05-07 09:54 | disposition home or self-care (01) ==
PROVIDERS: PCP Nurse Practitioner Family; Visit Provider Surgery
PROC: 0DJD8ZZ Inspection of Lower Intestinal Tract, Via Natural or Artificial Opening Endoscopic (ICD-10-PCS; CPT 45378; principal; 2024-05-07 08:15)
DX: Z12.11 Encounter for screening for malignant neoplasm of colon (principal); R73.03 Prediabetes; K62.1 Rectal polyp
CPT/HCPCS: 45380; 88305; J2704

== ENCOUNTER 2024-10-07 09:03 | Emergency (ER) | payer MEDICAID, SELFPAY ==
[2024-10-07 09:04] VITALS: BP 143/79; PULSE 80; RESP 15; TEMP 36.3; O2SAT 96
[2024-10-07 09:10] VITALS: BP 143/79; PULSE 80; RESP 15; TEMP 36.3; O2SAT 96
--- NOTE | 2024-10-07 09:47 | DI.CT_ITS ---
Exam(s) CT ABDOMEN PELVIS CTA EXAM: CT ABDOMEN PELVIS CTA CLINICAL HISTORY: rectal bleeding, constipation. TECHNIQUE: Imaging Protocol: Axial CT angiography was performed with multi-slice acquisition and m ulti-planar and/or 3D reconstructions. CONTRAST MATERIAL: Intravenous: Omnipaque 350 Contrast volume:structured data in ml Oral: yes / no COMPARISON: CT CT ABDOMEN PELVIS CTA from 04/08/2024 FINDINGS: Aorta: Mild atherosclerotic changes no aneurysm. No dissection. No significant stenosis. Iliac Arteries: No evidence of stenosis. Common Femoral Arteries: No evidence of stenosis. Celiac Starbuck:No evidence of stenosis. SMA: No evidence of stenosis. Renal Arteries: No evidence of stenosis. There is a single renal artery perfusing the left kidney. T here are 2 right renal arteries. PAUL: Patent. Venous structures: Patent. Lung bases:No acute findings. Liver: Enlarged. Hepatic steatosis. No measurable mass. Gallbladder and biliary tract: No evidence of calculi. No gallbladder wall thickening. No biliary di lation. Pancreas: Normal density, no abnormal calcifications or inflammatory process. Spleen: Normal. Kidneys: Normal size, contour and axis. No obstructive uropathy. Small simple cysts left kidney. No masses seen. No evidence of calculi. Adrenal glands: No masses seen. Bladder: Over distended. No gross wall thickening. No evidence of calculi. No evidence of mass. Bowel: Diverticulum of the gastric fundus. No obstruction or bowel wall thickening. Appendix yane l. Sigmoid diverticulosis with calcification within several of the diverticula. No evidence of dive rticulitis. Normal quantity of stool. Peritoneal cavity: No ascites. No focal collection. No mesenteric inflammatory response. Lymph nodes: Within normal limits. Reproductive: Unremarkable. Soft Tissues:Unremarkable. Bones: No acute findings. IMPRESSION: No evidence of aneurysm or dissection. No evidence vascular occlusion or significant stenosis. No evidence of active GI bleed. Diverticulosis of the descending sigmoid colon without evidence of d iverticulitis. RADIATION DOSE DELIVERED: 1,074.12mGy.cm Total DLP DATA REPOSITORY: All CT scans at this facility are submitted to the National Radiology Data Registry (NRDR) Dose Index Registry (DIR) with the [employer] (A[employer]). RADIATION OPTIMIZATION: All CT scans at this facility use at least one of these dose optimization te chniques: automated exposure control; mA and/or kV adjustment per patient size (includes targeted exa ms where dose is matched to clinical indication); or iterative reconstruction.
--- NOTE | 2024-10-07 09:58 | ED.GENADUL_ITS ---
Discharge Plan Disposition Patient Disposition: Home Condition: Stable Discharge Details Clinical Impression: Rectal bleeding Primary Care Provider: ADAM LEVINE ED Provider: Bella Busby Home Meds and New Rx's Prescriptions: No Action omeprazole 40 mg capsule,delayed release(DR/EC) 40 mg PO DAILY Qty: 90 3RF gabapentin 300 mg capsule 300 mg PO HS Patient Comments: TAKE 1 CAPSULE BY MOUTH AT BEDTIME Discharge Instructions Instructions: Bloody Stools, Adult ED, GI bleed Additional Instructions: Stay away from ibuprofen and aspirin. Do not strain to have bowel movements. Please call surgery for close follow-up. Return to the emergency department immediately if you develop fevers, chest pain, lightheadedness, dizziness, increased rectal bleeding, abdominal pain. Stand Alone Forms: Work Release Referrals: ADAM LEVINE, CORPORATE ASSOCIATE ATTORNEY [Primary Care Provider] - Ian Barreto MD [ [facility] STAFF PHYSICIAN] - 5 days (please call office today to arrange follow-up) Discharge Data Discharge Physician: Bella Busby [facility] General Date/Time Provider Initiated Documentation: 10/07/24 09:17 . HPI Narrative: 49-year-old male with history of diverticulosis presents for evaluation of rectal bleeding. Patient states that yesterday he went to go to the bathroom and instead of having a bowel movement when he wiped he noted bright blood. This morning he has had 2 episodes of bright red blood per rectum. He did not have any stool with those bowel movements. He denies any recent constipation. No abdominal pain. No chest pain or shortness of breath. No lightheadedness or dizziness. No fevers or chills. No cough or cold. He does have history of diverticulosis. No history of diverticulitis. He is not on any blood thinners. No urinary difficulties. He is not leaking blood between bowel movements. Related Data Home Medications ?Medication ?Instructions ?Recorded ?Confirmed omeprazole 40 mg capsule,delayed 40 mg PO DAILY #90 caps 07/26/19 10/07/24 release gabapentin 300 mg capsule 300 mg PO HS 08/30/20 10/07/24 Previous Rx's ?Medication ?Instructions ?Recorded omeprazole 40 mg capsule,delayed 40 mg PO DAILY #90 caps 07/26/19 release Allergies Allergy/AdvReac Type Severity Reaction Status Date / Time animal dander Allergy Mild head Uncoded 10/07/24 09:10 congestion hay Allergy Unknown Uncoded 10/07/24 09:10 General Stated Complaint: Abd Prob ISIAH: 3 Review of Systems Narrative: Remainder of review of systems otherwise negative except for as noted in the HPI x 10. Exam Narrative Exam Narrative: General: non-toxic, no respiratory distress, comfortable HEENT: normocephalic, atraumatic, lids and lashes normal, PERRL, EOMI, anicteric sclera, no conjunctival injection, moist oral mucosa Card: regular rate and rhythm, S1S2, no murmurs, rubs, or gallops Lungs: good air entry, clear to auscultation bilaterally. no wheezes, rales, rhonchi, or retractions Abd: soft, non-tender, non-distended, normal bowel sounds, no rebound or guarding, no peritoneal signs, no CVAT Musculoskeletal: full range of motion of arms and legs, no tenderness to palpation. no clubbing, cyanosis, or edema Neurologic: appropriate for age, strength normal Psych: alert and oriented Skin: no petechiae, no lesions, warm and dry Course Vital Signs Vital signs: Vital Signs Temperature 36.3 C L 10/07/24 09:04 Pulse 80 10/07/24 09:04 Respiratory Rate 15 10/07/24 09:04 Blood Pressure 143/79 H 10/07/24 09:04 Pulse Oximetry 96 10/07/24 09:04 Temperature 36.3 C L 10/07/24 09:10 Temperature Source Oral 10/07/24 09:10 Pulse 80 10/07/24 09:10 Respiratory Rate 15 10/07/24 09:10 Blood Pressure 143/79 H 10/07/24 09:10 Blood Pressure Position Sitting 10/07/24 09:10 Pulse Oximetry 96 10/07/24 09:10 Oxygen Delivery Method Room Air 10/07/24 09:10 Oxygen Flow Rate 0 10/07/24 09:10 Pain Level 0 10/07/24 09:10 Medical Decision Making 49-year-old male with history of diverticulosis presents for evaluation of bright red blood per rectum. Laboratory studies show mildly elevated white count. H&H are stable. No electrolyte abnormality. Repeat H&H is stable. Patient does not have any abdominal pain on exam. I did review old records. He did have colonoscopy in 2019 which was concerning for Crohn's colitis. He had a repeat colonoscopy in April 2024 after having another episode of bright red blood per rectum. At that time he had a polyp removed but no signs of colitis. Workup is unremarkable today. Patient does remember taking 2 Motrin yesterday but he believes it is after his symptoms started. I do feel that it is reasonable to be discharged home at this time as he is hemodynamically stable and not on any blood thinners. He has stable hemoglobin. I have counseled against using NSAIDs and aspirin. He will call Dr. Barreto's office today to arrange close follow-up. Patient and understand if he should have any worsening symptoms including fevers, abdominal pain, lightheadedness, dizziness, increased rectal bleeding, bleeding between bowel movements that he should return to the emergency department immediately for reevaluation. Quality:SDOH Health Related Social Needs: No Data to Display PFSH All Active Problems (Updated 10/07/24 @ 13:18 by Bella Busby MD) Encounter for screening colonoscopy (Acute) Prediabetes (Acute) Bilateral pneumonia (Acute) Cough (Acute) Strain of cervical portion of left trapezius muscle (Acute) Ischemic colitis (Acute) Rectal bleeding (Acute) Chest pain (Acute) Ischemic colitis (Acute) Hiatal hernia with GERD (Acute) Colitis (Acute) Medical History Hyperplastic colon polyp (~04/2024) Restless leg Smoker GERD with esophagitis Shoulder pain Left rotator cuff tendinitis rule out small tear of the supraspinatus. Previous history of shoulder injury from falling off a ladder could represent a SLAP lesion although he does not have any thing on exam to suggest a SLAP lesion or instability. Will start on formal PT after the steroid injection is given today. In addition I put him on some internal rotation stretching exercises to get a head start on his PT. Follow-up with me in 4-6 weeks. He will stay out of work until he is asymptomatic. Sleep disorder Surgical History History of colonoscopy (~04/2024) History of nasal surgery History of total knee replacement Open Carpal Tunnel release (01/21/17) LEFT/ Social History Smoking/Tobacco Use Status: Current every day Tobacco Type: cigarettes Smoking risk assessment performed?: Yes Alcohol Intake: never Drug use: Daily Substance use type: marijuana Housing: apartment Do you feel safe at home: Yes Do you feel safe in your relationship?: Yes Additional Social history: [employer]
[2024-10-07 09:59] LABS: Abs Immature Grans 0.06 10^3/uL (0.0-0.06); Absolute Basophil Count 0.07 10^3/uL (0.0-0.2); Absolute Eosinophil Count 0.38 10^3/uL (0.0-0.7); Absolute Lymphocyte Count 2.26 10^3/uL (1.2-3.4); Absolute Monocyte Count 0.62 10^3/uL (0.1-0.8); Absolute Neutrophil Count 8.81 10^3/uL (1.2-6.7); Basophils % 0.6 %; Eosinophils % 3.1 %; HCT 49.1 % (40.0-50.0); HGB 16.2 g/dL (13.5-17.5); Immature Grans % 0.5 %; Lymphocytes % 18.5 %; MCH 29.5 pg (27.0-33.0); MCV 89 fL (80-95); MPV 9.6 fL (8.0-11.0); Monocytes % 5.1 %; Neutrophils % 72.2 %; Platelet Count 320 10^3/uL (130-400); RDW 14.2 % (11.8-14.1); RDW-SD 46.2 fL
[2024-10-07 10:10] LABS: Prothrombin Time 9.7 sec (9.1-11.1)
[2024-10-07 10:15] LABS: ALT 28 U/L (16-63); AST 17 U/L (15-37); Albumin 4.1 g/dL (3.4-5.0); Alkaline Phosphatase 88 U/L (46-116); Anion Gap 7.3 mmol/L (3-11); BUN 15 mg/dL (7-18); Bilirubin, Total 0.9 mg/dL (0.2-1.0); CO2 27.7 mmol/L (21.0-32.0); CREATININE 1.1 mg/dL (0.70-1.30); Calcium 9.6 mg/dL (8.5-10.1); Chloride 105 mmol/L (98-107); Estimated GFR 82.29 (mL/min/1.73m2); Glucose 98 mg/dL (74-106); Lipase 32 U/L (<78); Magnesium 2.3 mg/dL (1.8-2.4); Potassium 4.1 mmol/L (3.5-5.1); Sodium 140 mmol/L (136-145); Total Protein 8.2 g/dL (6.4-8.2)
[2024-10-07] MEDS: Omnipaque 350 MG/ML 500 ML BTL-Imaging package IJ (11:45)
[2024-10-07] MEDS: Normal Saline - Diluent 50 ML VIAL IJ (11:46)
[2024-10-07 12:02] VITALS: BP 114/80; PULSE 63; RESP 16; O2SAT 98
[2024-10-07 12:36] LABS: HGB 15.9 g/dL (13.5-17.5)
[2024-10-07 13:30] VITALS: BP 141/95; PULSE 81; RESP 18; O2SAT 95
== END 2024-10-07 13:30 | disposition home or self-care (01) ==
PROVIDERS: Emergency Provider Emergency Medicine Emergency Medical Services; PCP Nurse Practitioner Family
DX: K62.5 Hemorrhage of anus and rectum (principal)
CPT/HCPCS: 99283; 99285; 36415; 80053; 83690; 74174; 83735; 85018; 85025; 85610

== ENCOUNTER 2025-03-11 16:16 | Emergency (ER) | payer MEDICAID, SELFPAY ==
[2025-03-11 16:18] VITALS: BP 148/98; PULSE 82; RESP 18; TEMP 35.7; O2SAT 98
--- NOTE | 2025-03-11 16:31 | W.ED.GENAD ---
Discharge Plan Disposition Patient Disposition: Home Condition: Stable Discharge Details Clinical Impression: Lumbar paraspinal muscle spasm Primary Care Provider: ADAM LEVINE ED Provider: Moises Reno Home Meds and New Rx's Prescriptions: New ketorolac 10 mg tablet 10 mg PO QID 5 Days Qty: 20 0RF Rx Instructions: maximum total duration of 5 days from all oral, intranasal, or parenteral formulations cyclobenzaprine 10 mg tablet 10 mg PO TID PRNQty: 30 0RF Continued omeprazole 40 mg capsule,delayed release(DR/EC) 40 mg PO DAILY Qty: 90 3RF gabapentin 300 mg capsule 300 mg PO HS Patient Comments: TAKE 1 CAPSULE BY MOUTH AT BEDTIME Discharge Instructions Instructions: Ketorolac (Systemic), Cyclobenzaprine, Muscle Spasm ED Additional Instructions: You were seen in the emergency department for your lumbar paraspinal muscle spasms after lifting an object. You are going to need to start taking 1000 mg of Tylenol every 6 hours like clockwork for the next 1 to 2 weeks, long term in between Tylenol doses for the next 5 days you can take the 10 mg ketorolac also every 6 hours, that I prescribed for anti-inflammatory effects-you can only take this medication for 5 days, so once you run out substitute and 400 mg of ibuprofen. You can take the prescribed cyclobenzaprine for skeletal muscle relaxation 3 times per day, try not to drive on this medication until you know how it affects you. Purchase [id number] diclofenac gel to rub on the area of pain 2-3 times per day, Place 1-2 lidocaine patches on the area of pain for 12 hours each night. Support your lower back with an [id number] back brace as needed, use a small pillow behind you to maintain your lumbar back curvature, apply alternating heat and ice to the area. Follow-up with gentle massage therapy visits and physical therapy referral, return to the ER at once for any numbness of the genitalia, urinary retention, bowel incontinence, complete weakness of either leg. If you fail to improve have your primary care provider schedule an outpatient MRI. Stand Alone Forms: Physical Therapy Referral, Work Release Referrals: ADAM LEVINE, MARKETING DIRECTOR [Primary Care Provider, Medicine] Discharge Data Discharge Date/Time-TO BE ENTERED AT DEPARTURE: 03/11/25 17:09 HPI General Date/Time Provider Initiated Documentation: 03/11/25 16:22. HPI Narrative: 50 year-old male presents to ED today by POV/ambulating with a chief complaint of upper lumbar back pain with onset today while attempting to grape picker a heavy object at work. Quality described as sharp lumbar back pain just next to the spine radiating out to each side, no radiation to urinary retention, fever, leg weakness, bowel incontinence, numbness or tingling. Severity is described as severe. Palliating factors include took ibuprofen at 10:30 AM. Provoking factors include movements, bending, sitting up. 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 Patient not anticoagulated. Related Data Home Medications ?Medication ?Instructions ?Recorded ?Confirmed omeprazole 40 mg capsule,delayed 40 mg PO DAILY #90 caps 07/26/19 03/11/25 release gabapentin 300 mg capsule 300 mg PO HS 08/30/20 03/11/25 cyclobenzaprine 10 mg tablet 10 mg PO TID PRN #30 tabs 03/11/25 ketorolac 10 mg tablet 10 mg PO QID 5 days #20 tabs 03/11/25 Previous Rx's ?Medication ?Instructions ?Recorded omeprazole 40 mg capsule,delayed 40 mg PO DAILY #90 caps 07/26/19 release cyclobenzaprine 10 mg tablet 10 mg PO TID PRN #30 tabs 03/11/25 ketorolac 10 mg tablet 10 mg PO QID 5 days #20 tabs 03/11/25 Allergies Allergy/AdvReac Type Severity Reaction Status Date / Time animal dander Allergy Mild head Uncoded 03/11/25 16:21 congestion hay Allergy Unknown Uncoded 03/11/25 16:21 General Stated Complaint: Orthopedic ISIAH: 3 Review of Systems All systems reviewed & are unremarkable except as noted in HPI and below Exam Narrative Exam Narrative: GENERAL APPEARANCE: Well-nourished, non-toxic, awake and alert, atraumatic, no acute distress. SKIN: Warm, pink, dry, intact, without rashes/lesions/ulcerations. HEAD: Normocephalic, atraumatic, normal hair distribution for gender/age. EYES: Normal conjunctiva, no exudates on lids/lashes. ENT: Nares patent, no circumoral cyanosis, no facial swelling NECK: Supple, trachea midline, painless cervical ROM. LUNGS/CHEST: Non-labored respirations, normal A/P diameter, symmetrical expansion, no chest wall deformity HEART (CV/PV): No peripheral edema, no JVD. ABDOMEN: Soft, non-distended, no guarding. MSK: Normal ROM, no swelling/deformity to bilateral UEs or LEs, moving all extremities without weakness, no cyanosis, spine midline with lumbar paraspinal tenderness, normal curvature. NEURO: Mental Status AAOx4 - alert to person, place, time, events No facial droop, no forehead involvement. Motor: No focal weakness - strength 5/5 in bilateral UEs and LEs, proximal and distal, symmetric. Sensory: sensation intact to light touch globally. Gait normal: patient ambulated without ataxia into ED room. PSYCH: euthymic, cooperative, pleasant, appropriate speech Course Vital Signs Vital signs: Vital Signs Temperature 35.7 C L 03/11/25 16:18 Pulse 82 03/11/25 16:18 Respiratory Rate 18 03/11/25 16:18 Blood Pressure 148/98 H 03/11/25 16:18 Pulse Oximetry 98 03/11/25 16:18 Temperature 35.7 C L 03/11/25 16:18 Temperature Source Oral 03/11/25 16:18 Pulse 82 03/11/25 16:18 Respiratory Rate 18 03/11/25 16:18 Blood Pressure 148/98 H 03/11/25 16:18 Pulse Oximetry 98 03/11/25 16:18 Pain Level 8 03/11/25 16:18 Medical Decision Making This dictation utilizes [id number] dictation software and may contain unedited grammatical errors. 50 year-old male presents to ED today by POV/ambulating with a chief complaint of upper lumbar back pain with onset today while attempting to grape picker a heavy object at work. Quality described as sharp lumbar back pain just next to the spine radiating out to each side, no radiation to urinary retention, fever, leg weakness, bowel incontinence, numbness or tingling. Severity is described as severe. Palliating factors include took ibuprofen at 10:30 AM. Provoking factors include movements, bending, sitting up. 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 Patients' medical history: GERD, TUAN, ischemic colitis. 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 Pertinent exam findings / vital signs include lumbar paraspinal tenderness, no saddle anesthesia, no myelopathy of lower extremities. Differential / pathologies of concern include muscle strain or sprain, disc bulge or herniation. Diagnostic studies of: -None - discussed trial of medication regimen prior to possible outpatient MRI as optimal study. Interventions of: - 1 g p.o. Tylenol, 30 mg IM ketorolac, 10 mg IM dexamethasone, 10 mg p.o. cyclobenzaprine, Lidoderm patch X2, 1 dose oxycodone 5 mg p.o. 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 Findings not consistent with cauda equina, trauma or fracture, myelopathy. Disposition of lumbar paraspinal muscle spasm. Patient verbalized understanding of the plan and return to ED criteria and engaged in shared decision making. Medical Records Medical records reviewed: Yes I reviewed the patient's medical records. PFSH All Active Problems (Updated 03/11/25 @ 16:33 by TERESA Celis) Lumbar paraspinal muscle spasm (Acute) Encounter for screening colonoscopy (Acute) Prediabetes (Acute) Bilateral pneumonia (Acute) Cough (Acute) Strain of cervical portion of left trapezius muscle (Acute) Ischemic colitis (Acute) Rectal bleeding (Acute) Chest pain (Acute) Ischemic colitis (Acute) Hiatal hernia with GERD (Acute) Colitis (Acute) Medical History Hyperplastic colon polyp (~04/2024) Restless leg Smoker GERD with esophagitis Shoulder pain Left rotator cuff tendinitis rule out small tear of the supraspinatus. Previous history of shoulder injury from falling off a ladder could represent a SLAP lesion although he does not have any thing on exam to suggest a SLAP lesion or instability. Will start on formal PT after the steroid injection is given today. In addition I put him on some internal rotation stretching exercises to get a head start on his PT. Follow-up with me in 4-6 weeks. He will stay out of work until he is asymptomatic. Sleep disorder Surgical History History of colonoscopy (~04/2024) History of nasal surgery History of total knee replacement Open Carpal Tunnel release (01/21/17) LEFT/ Social History Smoking/Tobacco Use Status: Current every day Tobacco Type: cigarettes Smoking risk assessment performed?: Yes Alcohol Intake: never Drug use: Daily Substance use type: marijuana Housing: apartment Do you feel safe at home: Yes Do you feel safe in your relationship?: Yes Additional Social history: [employer]
[2025-03-11] MEDS: Cyclobenzaprine 10 MG TAB PO (17:00)
[2025-03-11] MEDS: Acetaminophen 500 MG TAB 1000 MG PO (17:00)
[2025-03-11] MEDS: Dexamethasone 10 MG/ML VIAL IM (17:01)
[2025-03-11] MEDS: Lidocaine 5% Patch 2 PATCH TP (17:01)
[2025-03-11] MEDS: Ketorolac 30 MG/ML VIAL IM (17:01)
[2025-03-11] MEDS: oxyCODONE 5 MG TAB PO (17:02)
== END 2025-03-11 17:09 | disposition home or self-care (01) ==
LOC: ER 17:07
PROVIDERS: Emergency Provider Physician Assistant; PCP Nurse Practitioner Family
DX: M62.830 Muscle spasm of back (principal)
CPT/HCPCS: 99283; 99284; 96372; J1100; J1885